=== PATIENT | female | born 1960 | race Caucasian/White ===

== ENCOUNTER → 2017-04-20 07:19 | Outpatient (CLI) | payer MEDICARE, SELFPAY ==
--- NOTE | 2017-04-20 10:06 | NEURO_ITS ---
NCS and/or EMG Patient Report Ordering Doctor: Tami Randall DATE OF SERVICE: 04/20/17 This is a bilateral lower extremity nerve conduction study performed on this 56- year-old female with a history of diabetes which is currently under good control however prior to 4 months ago she states that her hemoglobin A1c numbers were greater than 10 for many years. She experiences pain currently most severe on the bottom of her feet. Bilateral lower extremity sensory and motor nerve conduction studies are performed, demonstrating absence of the sural sensory responses bilaterally, absence of the H reflexes bilaterally, and absence of the left tibial and common peroneal F waves with prolongation of the right tibial and common peroneal F-wave latencies. The motor responses are abnormal from the bilateral common peroneal nerves and tibial motor nerves bilaterally all of which are consistent with a severe polyneuropathy. Impression this is an abnormal nerve conduction study of the bilateral lower extremities consistent with severe polyneuropathy, likely due to the patient's history of diabetes. EMG testing was deferred due to the patient's severe edema.
== END ==
PROVIDERS: Family Provider Family Medicine Geriatric Medicine; PCP Family Medicine Geriatric Medicine; Visit Provider Psychiatry & Neurology Neurology
DX: G62.9 Polyneuropathy, unspecified (principal); R20.0 Anesthesia of skin; R20.2 Paresthesia of skin
CPT/HCPCS: 95910

== ENCOUNTER → 2017-05-12 12:09 | Outpatient (CLI) | payer MEDICARE, SELFPAY ==
[2017-05-12 13:27] LABS: Absolute Lymphocyte Count 0.09 X10^3/ul (0.83-4.51); Absolute Neutrophil Count 3.8 X10^3/uL (2.0-7.7); Basophil# 0.01 X10^3/uL; Basophil% 0.2 % (0-1); Eosinophil# 0.16 X10^3/uL; Eosinophils% 3.6 % (0-5); Hematocrit 37.8 % (37-47); Hemoglobin 11.7 g/dl (12.0-15.0); Lymphocyte # 0.09 X10^3/ul (4.0); Mean Corpuscular Hgb 28.9 pg (27.0-32.0); Mean Corpuscular Volume 93.3 fL (81-99); Mean Platelet Vol. 10.6 fl (6.2-12.0); Monocyte# 0.46 X10^3/uL; Monocyte% 10.3 % (0-10); Neutrophil # 3.75 X10^3/uL (2.7-7.7); Neutrophil % 83.7 % (47-70); Platelet Count 279 K/mm3 (150-450); RBC Distribution Width CV 15.5 % (11.6-14.6); Red Blood Count 4.05 M/mm3 (4.2-5.4); White Blood Count 4.5 K/mm3 (4.4-11.0)
[2017-05-12 13:31] LABS: Differential Indicated SCAN CRITERIA MET; POSITIVE COUNT NO; POSITIVE DIFFERENTIAL YES; POSITIVE MORPHOLOGY NO
[2017-05-12 13:41] LABS: ALB/GLOB Ratio 0.8 RATIO (0.9-2.4); AST(SGOT) 13 U/L (15-37); Alanine Aminotransfer ALT/SGPT 13 U/L (13-56); Albumin, Serum 3.1 g/dL (3.2-5.0); Alkaline Phosphatase 83 U/L (45-117); Anion Gap 8 (5-15); BUN 26 mg/dL (7-18); BUN/Creat Ratio 28.1 RATIO (10-20); Calcium,Total 8.5 mg/dL (8.5-10.1); Chloride 100 mmol/L (98-107); Creatinine, Serum 0.92 mg/dL (0.55-1.02); EST Glomerular Filtration Rate 67 mL/min (>60); Est Glom Filt Rate - Afr Amer 81 mL/min (>60); Globulin 4.1 g/dL (2.2-4.2); Glucose 142 mg/dL (74-106); Protein, Total 7.2 g/dL (6.4-8.2); Sodium Level 138 mmol/L (136-145); Thyroid Stim Hormone (TSH) 3.85 uIU/mL (0.358-3.74)
== END ==
PROVIDERS: Family Provider Family Medicine Geriatric Medicine; PCP Family Medicine Geriatric Medicine; Visit Provider Family Medicine Geriatric Medicine
DX: E11.9 Type 2 diabetes mellitus without complications (principal); I10 Essential (primary) hypertension
CPT/HCPCS: 36415; 80053; 84443; 85025

== ENCOUNTER → 2017-06-30 11:26 | Outpatient (CLI) | payer MEDICARE, SELFPAY ==
[2017-06-30 12:33] LABS: Hemoglobin A1c 10.1 % (4.2-6.3)
[2017-06-30 12:43] LABS: Thyroid Stim Hormone (TSH) 1.37 uIU/mL (0.358-3.74)
== END ==
PROVIDERS: Family Provider Family Medicine Geriatric Medicine; PCP Family Medicine Geriatric Medicine; Visit Provider Family Medicine Geriatric Medicine
DX: E11.9 Type 2 diabetes mellitus without complications (principal); E03.9 Hypothyroidism, unspecified; Z79.899 Other long term (current) drug therapy
CPT/HCPCS: 36415; 83036; 84443

== ENCOUNTER → 2017-08-16 15:59 | Outpatient (CLI) | payer MEDICARE, SELFPAY ==
[2017-08-16 20:13] LABS: M R Staph aureus DNA By PCR Negative (Negative); Probe Check PASS; Specimen Processing Control PASS; Staph aureus DNA By PCR POSITIVE (Negative)
== END ==
PROVIDERS: Family Provider Family Medicine Geriatric Medicine; PCP Family Medicine Geriatric Medicine; Visit Provider Family Medicine Geriatric Medicine
DX: T79.8XXA Other early complications of trauma, initial encounter (principal)
CPT/HCPCS: 36415; 87070; 87077; 87186; 87205; 87640

== ENCOUNTER → 2017-11-11 11:59 | Outpatient (CLI) | payer MEDICARE, SELFPAY ==
[2017-11-11 12:49] LABS: Absolute Lymphocyte Count 0.29 X10^3/ul (0.83-4.51); Absolute Neutrophil Count 3.7 X10^3/uL (2.0-7.7); Basophil# 0.01 X10^3/uL; Basophil% 0.2 % (0-1); Eosinophils% 2.3 % (0-5); Hematocrit 39.9 % (37-47); Hemoglobin 12.2 g/dl (12.0-15.0); Lymphocyte # 0.29 X10^3/ul (4.0); Lymphocyte % 6.7 % (19-41); Mean Corp Hgb Conc 30.6 g/gl (32-36); Mean Corpuscular Hgb 28.7 pg (27.0-32.0); Mean Corpuscular Volume 93.9 fL (81-99); Mean Platelet Vol. 10.9 fl (6.2-12.0); Monocyte# 0.24 X10^3/uL; Monocyte% 5.6 % (0-10); Neutrophil # 3.66 X10^3/uL (2.7-7.7); Neutrophil % 84.7 % (47-70); Platelet Count 250 K/mm3 (150-450); RBC Distribution Width CV 16.5 % (11.6-14.6); Red Blood Count 4.25 M/mm3 (4.2-5.4); White Blood Count 4.3 K/mm3 (4.4-11.0)
[2017-11-11 12:52] LABS: Differential Indicated SCAN CRITERIA MET; POSITIVE COUNT NO; POSITIVE DIFFERENTIAL YES; POSITIVE MORPHOLOGY NO
[2017-11-11 13:17] LABS: ALB/GLOB Ratio 0.8 RATIO (0.9-2.4); AST(SGOT) 21 U/L (15-37); Alanine Aminotransfer ALT/SGPT 19 U/L (13-56); Albumin, Serum 3.2 g/dL (3.2-5.0); Alkaline Phosphatase 74 U/L (45-117); Anion Gap 11 (5-15); BUN 19 mg/dL (7-18); BUN/Creat Ratio 21.5 RATIO (10-20); Calcium,Total 8.6 mg/dL (8.5-10.1); Chloride 104 mmol/L (98-107); Creatinine, Serum 0.88 mg/dL (0.55-1.02); EST Glomerular Filtration Rate 71 mL/min (>60); Est Glom Filt Rate - Afr Amer 85 mL/min (>60); Glucose 176 mg/dL (74-106); Protein, Total 7.2 g/dL (6.4-8.2); Sodium Level 141 mmol/L (136-145); Thyroid Stim Hormone (TSH) 1.28 uIU/mL (0.358-3.74)
[2017-11-12 09:01] LABS: Hep C Antibodies 0.1 s/co ratio (0.0-0.9)
== END ==
PROVIDERS: Family Provider Family Medicine Geriatric Medicine; PCP Family Medicine Geriatric Medicine; Visit Provider Family Medicine Geriatric Medicine
DX: E11.9 Type 2 diabetes mellitus without complications (principal); I10 Essential (primary) hypertension; Z13.89 Encounter for screening for other disorder
CPT/HCPCS: 36415; 80053; 84443; 85025; 86803

== ENCOUNTER → 2017-11-12 09:25 | Outpatient (CLI) | payer MEDICARE, SELFPAY | PROVIDERS: Family Provider Family Medicine Geriatric Medicine; PCP Family Medicine Geriatric Medicine; Visit Provider Family Medicine Geriatric Medicine | DX: N39.0 Urinary tract infection, site not specified (principal) | CPT/HCPCS: 87086; 87088; 87186 ==

== ENCOUNTER → 2017-12-14 15:45 | Outpatient (CLI) | payer MEDICARE, SELFPAY | PROVIDERS: Family Provider Family Medicine Geriatric Medicine; PCP Family Medicine Geriatric Medicine; Visit Provider Family Medicine Geriatric Medicine | DX: N39.0 Urinary tract infection, site not specified (principal) | CPT/HCPCS: 87086; 87088 ==

== ENCOUNTER → 2017-12-27 10:08 | Outpatient (CLI) | payer MEDICARE, SELFPAY ==
--- NOTE | 2017-12-27 10:37 | MRI_ITS ---
STUDY: MRI THORACIC SPINE WITH AND WITHOUT CONTRAST REASON FOR EXAM: Female, 57 years old. MS -- recheck MS , no new symptoms. TECHNIQUE: 14 ml of Gadavist was administered intravenously for the contrast portion of the examination. # of Images: 221 COMPARISON: January 12, 2017 FINDINGS: Normal kyphosis of the thoracic spine. There is no substantial scoliosis. T1-2, T2-3, T3-4, T4-5, T5-6, T6-7, T7-8, T8-9, T9-10, T10-11, T11-12: There is diffuse disc space narrowing and endplate spondylosis. Again noted is a long segment increased cord signal at T9/T10, without evidence of enhancement or expansion of the cord. Findings are stable since the prior examination. The soft tissue structures are unremarkable. There is no enhancing abnormality. MRI/Spine Thoracic W/WO Contrast IMPRESSION: Stable examination. Stable T9/T10 nonenhancing plaque. Electronically Signed: Jose Ramon Mcconnell MD at 13:10 EDT Tel , Service support ,
--- NOTE | 2017-12-27 10:37 | MRI_ITS ---
STUDY: MRI CERVICAL SPINE WITH AND WITHOUT CONTRAST REASON FOR EXAM: Female, 57 years old. recheck MS , no new symptoms. TECHNIQUE: Standardized fat and water weighted pulse sequences were obtained in the sagittal and axial following I.V. administration of 14 ml of Gadavist contrast material. COMPARISON: January 12, 2017 FINDINGS: Examination is severely degraded by motion artifact Normal craniovertebral junction. Normal anterior atlantoaxial articulation. Normal odontoid process. Normal cervical lordosis. C2-3: There is no significant disc herniation, spinal canal or foramina stenosis. The area of previous demyelinating plaque is not well-visualized on this motion degraded examination. C3-4: There is no significant disc herniation, spinal canal or foramina stenosis. There is stable increased cord signal without enhancement C4-5: There is minimal disc space narrowing and endplate spondylosis. There is no significant disc herniation, central canal or foraminal stenosis. There is stable increased cord signal without enhancement C5-6: There is no significant disc herniation, spinal canal or foramina stenosis. C6-7: There is minimal disc space narrowing and endplate spondylosis. There is no significant disc herniation, central canal or foraminal stenosis. C7-T1: There is mild disc space narrowing and endplate spondylosis. There is no significant disc herniation, central canal or foraminal stenosis. Normal visualized soft tissue structures. MRI/Spine Cervical W/WO Contrast IMPRESSION: Stable examination. Stable demyelinating plaque without evidence of active demyelination. Electronically Signed: Jose Ramon Mcconnell MD at 13:07 EDT Tel , Service support ,
--- NOTE | 2017-12-27 10:37 | MRI_ITS ---
STUDY: MRI BRAIN WITH AND WITHOUT CONTRAST REASON FOR EXAM: Female, 57 years old. MS -- recheck MS , no new symptoms. TECHNIQUE: Standardized multiplanar fat and water weighted pulse sequences were obtained. 14 ml of Gadavist contrast material was administered intravenously for the contrast portion of the examination. # of Images: 350 COMPARISON: January 12, 2017 FINDINGS: There is mild cerebral atrophy with widening of the extra-axial spaces and ventricular dilatation. There are a limited number of small white matter hyperintensities, distributed throughout the deep white matter tracts of the cerebral hemispheres, without enhancement or restricted diffusion to suggest active demyelination. Normal bilateral basal ganglia. Normal thalami. There is no extra-axial fluid accumulation. Normal flow voids within the major intracranial circulation suggesting patency by spin echo criteria. Normal venous enhancement. There is no enhancing intra-axial or extra-axial abnormality. Normal sella turcica, pituitary gland, infundibular stalk, optic chiasm and hypothalamus. Normal tectal plate and pineal gland. Normal midbrain, yina and medulla. Normal cerebellum. Normal basal cisterns. Normal bilateral temporal bones. Normal bilateral internal auditory canals. MRI/Brain W/WO Contrast IMPRESSION: Stable examination. Stable few demyelinating plaque without evidence of active demyelination. Electronically Signed: Jose Ramon Mcconnell MD at 13:07 EDT Tel , Service support ,
[2017-12-27 14:59] LABS: Vitamin D,25 Hydroxy 8.7 ng/mL (29.95-100.01)
== END ==
PROVIDERS: Family Provider Family Medicine Geriatric Medicine; PCP Family Medicine Geriatric Medicine; Referring Provider Psychiatry & Neurology Neurology; Visit Provider Psychiatry & Neurology Neurology
DX: G35 Multiple sclerosis (principal)
CPT/HCPCS: 36415; 70553; 72156; 72157; 82306; A9585

== ENCOUNTER → 2018-05-12 10:39 | Outpatient (CLI) | payer MEDICARE, SELFPAY ==
--- NOTE | 2018-05-12 11:37 | RAD_ITS ---
STUDY: X-RAY - ABDOMEN/PELVIS REASON FOR EXAM: Female, 57 years old. Abdominal pain and distention TECHNIQUE: 6 AP studies COMPARISON: None. FINDINGS: Normal visualized lung bases. Retained stool noted throughout the colon which may be impacted. There is small bowel ileus proximal to the retained stool in the colon. There is no demonstrated free abdominal air. The visualized liver, spleen and kidneys are grossly normal in size and morphology. Normal soft tissue structures. Normal visualized osseous structures. IUD noted in the uterus RAD/Abd Inc Decub and/or Erect IMPRESSION: Retained stool noted in the colon which may be impacted Small bowel ileus Electronically Signed: Pierce Benedict MD at 15:40 EDT , Service support ,
[2018-05-12 13:06] LABS: Absolute Lymphocyte Count 0.19 X10^3/ul (0.83-4.51); Absolute Neutrophil Count 3.3 X10^3/uL (2.0-7.7); Basophil# 0.01 X10^3/uL; Basophil% 0.2 % (0-1); Eosinophils% 4.8 % (0-5); Hematocrit 37.7 % (37-47); Hemoglobin 11.9 g/dl (12.0-15.0); Lymphocyte # 0.19 X10^3/ul (4.0); Lymphocyte % 4.6 % (19-41); Mean Corp Hgb Conc 31.6 g/gl (32-36); Mean Corpuscular Hgb 29.5 pg (27.0-32.0); Mean Corpuscular Volume 93.5 fL (81-99); Mean Platelet Vol. 10.6 fl (6.2-12.0); Monocyte# 0.46 X10^3/uL; Monocyte% 11.1 % (0-10); Neutrophil # 3.27 X10^3/uL (2.7-7.7); Neutrophil % 78.8 % (47-70); Platelet Count 321 K/mm3 (150-450); RBC Distribution Width CV 14.9 % (11.6-14.6); RBC Distribution Width SD 49.6 fl (35.1-43.9); Red Blood Count 4.03 M/mm3 (4.2-5.4); White Blood Count 4.2 K/mm3 (4.4-11.0)
[2018-05-12 13:11] LABS: Differential Indicated SCAN CRITERIA MET; POSITIVE COUNT NO; POSITIVE DIFFERENTIAL YES; POSITIVE MORPHOLOGY NO
[2018-05-12 13:32] LABS: ALB/GLOB Ratio 0.9 RATIO (0.9-2.4); AST(SGOT) 12 U/L (15-37); Alanine Aminotransfer ALT/SGPT 15 U/L (13-56); Albumin, Serum 3.4 g/dL (3.2-5.0); Alkaline Phosphatase 91 U/L (45-117); Anion Gap 7 (5-15); BUN 24 mg/dL (7-18); BUN/Creat Ratio 27.3 RATIO (10-20); Calcium,Total 8.7 mg/dL (8.5-10.1); Chloride 104 mmol/L (98-107); Creatinine, Serum 0.88 mg/dL (0.55-1.02); EST Glomerular Filtration Rate 71 mL/min (>60); Est Glom Filt Rate - Afr Amer 86 mL/min (>60); Globulin 3.6 g/dL (2.2-4.2); Glucose 138 mg/dL (74-106); Potassium 3.9 mmol/L (3.5-5.1); Sodium Level 140 mmol/L (136-145); Thyroid Stim Hormone (TSH) 3.67 uIU/mL (0.358-3.74)
[2018-05-16 09:07] LABS: Pathologist Review Reviewed
== END ==
LOC: POLAB3 10:41 → RAD 11:31
PROVIDERS: Family Provider Family Medicine Geriatric Medicine; PCP Family Medicine Geriatric Medicine; Referring Provider Family Medicine Geriatric Medicine; Visit Provider Family Medicine Geriatric Medicine
DX: E11.9 Type 2 diabetes mellitus without complications (principal); I10 Essential (primary) hypertension; K56.41 Fecal impaction
CPT/HCPCS: 36415; 74019; 80053; 84443; 85025

== ENCOUNTER → 2018-07-14 12:19 | Outpatient (CLI) | payer MEDICARE, SELFPAY ==
--- NOTE | 2018-07-14 12:42 | RAD_ITS ---
STUDY: X-RAY - LEFT FOOT CLINICAL: Female, 58 years old. Pain TECHNIQUE: 3 view(s) of the foot. COMPARISON: None. FINDINGS: Normal talus, calcaneus, and tarsal bones. Normal visualized subtalar, talonavicular, calcaneocuboid, tarsal and tarsometatarsal articulations. Normal metatarsi. Normal metatarsophalangeal joint of the great toe. Normal tibial and fibular sesamoid bones. Normal interphalangeal joint of the great toe. Normal phalanges of the great toe. Normal second through fifth metatarsophalangeal joints. Normal interphalangeal joints and phalanges of the lesser toes. Soft tissue swelling. RAD/Foot min 3 Views IMPRESSION: No fractures or osteolytic lesions are seen. Electronically Signed: Mendoza Echeverria MD at 21:52 EDT Tel , Service support ,
--- NOTE | 2018-07-14 12:42 | RAD_ITS ---
STUDY: X-RAY - RIGHT FOOT CLINICAL: Female, 58 years old. Pain TECHNIQUE: 3 view(s) of the foot. COMPARISON: None. FINDINGS: Normal talus, calcaneus, and tarsal bones. Normal visualized subtalar, talonavicular, calcaneocuboid, tarsal and tarsometatarsal articulations. Normal metatarsi. Normal metatarsophalangeal joint of the great toe. Normal tibial and fibular sesamoid bones. Normal interphalangeal joint of the great toe. Normal phalanges of the great toe. Normal second through fifth metatarsophalangeal joints. Normal interphalangeal joints and phalanges of the lesser toes. Soft tissue swelling. RAD/Foot min 3 Views IMPRESSION: No fracture or osteolytic lesion. Electronically Signed: Mendoza Echeverria MD at 21:57 EDT Tel , Service support ,
[2018-07-14 17:18] LABS: Anion Gap 6 (5-15); BUN 24 mg/dL (7-18); BUN/Creat Ratio 29.8 RATIO (10-20); Calcium,Total 8.9 mg/dL (8.5-10.1); Chloride 105 mmol/L (98-107); Creatinine, Serum 0.81 mg/dL (0.55-1.02); EST Glomerular Filtration Rate 78 mL/min (>60); Est Glom Filt Rate - Afr Amer 95 mL/min (>60); Follicle Stimulating Hormone 26.6 mIU/mL; Glucose 197 mg/dL (74-106); Potassium 3.8 mmol/L (3.5-5.1); Sodium Level 140 mmol/L (136-145)
[2018-07-20 12:12] LABS: Estrogen, Total, Serum 68 pg/mL (.)
== END ==
LOC: POLAB3 12:19 → RAD 12:34
PROVIDERS: Family Provider Family Medicine Geriatric Medicine; PCP Family Medicine Geriatric Medicine; Referring Provider Family Medicine Geriatric Medicine; Visit Provider Family Medicine Geriatric Medicine
DX: M79.672 Pain in left foot (principal); M79.671 Pain in right foot; E28.2 Polycystic ovarian syndrome
CPT/HCPCS: 36415; 73630; 80048; 82672; 83001; 84403

== ENCOUNTER → 2018-08-10 08:56 | Outpatient (CLI) | payer MEDICARE, SELFPAY ==
[2018-08-10 12:25] LABS: Absolute Lymphocyte Count 0.15 X10^3/ul (0.83-4.51); Basophil# 0.01 X10^3/uL; Basophil% 0.2 % (0-1); Eosinophils% 4.1 % (0-5); Hematocrit 36.8 % (37-47); Hemoglobin 11.6 g/dl (12.0-15.0); Lymphocyte # 0.15 X10^3/ul (4.0); Lymphocyte % 3.1 % (19-41); Mean Corp Hgb Conc 31.5 g/gl (32-36); Mean Platelet Vol. 10.8 fl (6.2-12.0); Monocyte# 0.42 X10^3/uL; Monocyte% 8.7 % (0-10); Neutrophil # 4.02 X10^3/uL (2.7-7.7); Neutrophil % 83.5 % (47-70); Platelet Count 299 K/mm3 (150-450); RBC Distribution Width CV 14.9 % (11.6-14.6); RBC Distribution Width SD 48.7 fl (35.1-43.9); White Blood Count 4.8 K/mm3 (4.4-11.0)
[2018-08-10 12:26] LABS: Differential Indicated SCAN CRITERIA MET; POSITIVE COUNT NO; POSITIVE DIFFERENTIAL YES; POSITIVE MORPHOLOGY NO
[2018-08-10 12:39] LABS: ALB/GLOB Ratio 0.8 RATIO (0.9-2.4); AST(SGOT) 12 U/L (15-37); Alanine Aminotransfer ALT/SGPT 19 U/L (13-56); Alkaline Phosphatase 103 U/L (45-117); Anion Gap 9 (5-15); BUN 17 mg/dL (7-18); BUN/Creat Ratio 19.2 RATIO (10-20); Calcium,Total 8.6 mg/dL (8.5-10.1); Chloride 104 mmol/L (98-107); Creatinine, Serum 0.88 mg/dL (0.55-1.02); EST Glomerular Filtration Rate 70 mL/min (>60); Est Glom Filt Rate - Afr Amer 85 mL/min (>60); Glucose 126 mg/dL (74-106); Potassium 4.1 mmol/L (3.5-5.1); Sodium Level 141 mmol/L (136-145); Thyroid Stim Hormone (TSH) 1.95 uIU/mL (0.358-3.74)
== END ==
PROVIDERS: Family Provider Family Medicine Geriatric Medicine; PCP Family Medicine Geriatric Medicine; Visit Provider Family Medicine Geriatric Medicine
DX: E11.9 Type 2 diabetes mellitus without complications (principal); I10 Essential (primary) hypertension
CPT/HCPCS: 36415; 80053; 84443; 85025

== ENCOUNTER → 2018-09-13 11:39 | Outpatient (CLI) | payer MEDICARE, SELFPAY ==
[2018-09-13 12:50] LABS: Absolute Lymphocyte Count 0.12 X10^3/uL (0.83-4.51); Absolute Neutrophil Count 3.9 X10^3/uL (2.0-7.7); Basophil# 0.02 X10^3/uL; Basophil% 0.4 % (0-1); Eosinophil# 0.21 X10^3/uL; Eosinophils% 4.6 % (0-5); Hematocrit 37.3 % (37-47); Hemoglobin 11.5 g/dL (12.0-15.0); Lymphocyte # 0.12 X10^3/ul (4.0); Lymphocyte % 2.6 % (19-41); Mean Corp Hgb Conc 30.8 g/dL (32-36); Mean Platelet Vol. 10.6 fl (6.2-12.0); Monocyte# 0.37 X10^3/uL; NRBC Flagged by Analyzer 0 % (0-5); Neutrophil # 3.85 X10^3/uL (2.7-7.7); Neutrophil % 83.5 % (47-70); POSITIVE DIFFERENTIAL YES; Platelet Count 273 K/mm3 (150-450); RBC Distribution Width CV 14.2 % (11.6-14.6); RBC Distribution Width SD 48.9 fl (35.1-43.9); Red Blood Count 3.97 M/mm3 (4.2-5.4); White Blood Count 4.6 K/mm3 (4.4-11.0)
[2018-09-13 13:00] LABS: Differential Indicated SCAN CRITERIA MET
[2018-09-13 13:01] LABS: ALB/GLOB Ratio 0.9 RATIO (0.9-2.4); AST(SGOT) 16 U/L (15-37); Alanine Aminotransfer ALT/SGPT 19 U/L (13-56); Albumin, Serum 3.2 g/dL (3.2-5.0); Alkaline Phosphatase 109 U/L (45-117); Anion Gap 6 (5-15); BUN 21 mg/dL (7-18); BUN/Creat Ratio 23.4 RATIO (10-20); Chloride 103 mmol/L (98-107); EST Glomerular Filtration Rate 69 mL/min (>60); Est Glom Filt Rate - Afr Amer 83 mL/min (>60); Globulin 3.7 g/dL (2.2-4.2); Glucose 182 mg/dL (74-106); Potassium 4.1 mmol/L (3.5-5.1); Protein, Total 6.9 g/dL (6.4-8.2); Sodium Level 139 mmol/L (136-145)
== END ==
PROVIDERS: Family Provider Family Medicine Geriatric Medicine; PCP Family Medicine Geriatric Medicine; Visit Provider Psychiatry & Neurology Neurology
DX: G35 Multiple sclerosis (principal); C92.40 Acute promyelocytic leukemia, not having achieved remission
CPT/HCPCS: 36415; 80053; 85025

== ENCOUNTER → 2018-11-29 09:33 | Outpatient (CLI) | payer MEDICARE, SELFPAY ==
[2018-11-29 12:44] LABS: Absolute Lymphocyte Count 0.11 X10^3/uL (0.83-4.51); Absolute Neutrophil Count 2.9 X10^3/uL (2.0-7.7); Basophil# 0.03 X10^3/uL; Basophil% 0.8 % (0-1); Eosinophil# 0.22 X10^3/uL; Eosinophils% 5.9 % (0-5); Hematocrit 38.9 % (37-47); Hemoglobin 12.1 g/dL (12.0-15.0); Lymphocyte # 0.11 X10^3/ul (4.0); Lymphocyte % 2.9 % (19-41); Mean Corp Hgb Conc 31.1 g/dL (32-36); Mean Corpuscular Hgb 28.5 pg (27.0-32.0); Mean Corpuscular Volume 91.5 fL (81-99); Mean Platelet Vol. 11.1 fl (6.2-12.0); Monocyte# 0.48 X10^3/uL; Monocyte% 12.8 % (0-10); NRBC Flagged by Analyzer 0 % (0-5); Neutrophil # 2.89 X10^3/uL (2.7-7.7); Neutrophil % 76.8 % (47-70); POSITIVE DIFFERENTIAL YES; Platelet Count 270 K/mm3 (150-450); RBC Distribution Width CV 14.7 % (11.6-14.6); Red Blood Count 4.25 M/mm3 (4.2-5.4); White Blood Count 3.8 K/mm3 (4.4-11.0)
[2018-11-29 12:52] LABS: Differential Indicated SCAN CRITERIA MET
[2018-11-29 13:00] LABS: Vitamin D,25 Hydroxy 12.6 ng/mL (29.95-100.01)
[2018-11-29 13:03] LABS: Platelet Estimate ADEQUATE (ADEQ); Red Cell Morphology NORM C+C NORMAL (NORM C&C)
[2018-11-29 13:23] LABS: ALB/GLOB Ratio 0.9 RATIO (0.9-2.4); AST(SGOT) 17 U/L (15-37); Alanine Aminotransfer ALT/SGPT 23 U/L (13-56); Albumin, Serum 3.5 g/dL (3.2-5.0); Alkaline Phosphatase 112 U/L (45-117); Anion Gap 8 (5-15); BUN 19 mg/dL (7-18); BUN/Creat Ratio 17.6 RATIO (10-20); Calcium,Total 8.9 mg/dL (8.5-10.1); Chloride 101 mmol/L (98-107); Creatinine, Serum 1.08 mg/dL (0.55-1.02); EST Glomerular Filtration Rate 56 mL/min (>60); Est Glom Filt Rate - Afr Amer 67 mL/min (>60); Globulin 3.9 g/dL (2.2-4.2); Glucose 128 mg/dL (74-106); Potassium 3.8 mmol/L (3.5-5.1); Protein, Total 7.4 g/dL (6.4-8.2); Sodium Level 138 mmol/L (136-145); Thyroid Stim Hormone (TSH) 2.99 uIU/mL (0.358-3.74)
[2018-11-30 10:16] LABS: Pathologist Review Reviewed
== END ==
PROVIDERS: Family Provider Family Medicine Geriatric Medicine; PCP Family Medicine Geriatric Medicine; Visit Provider Family Medicine Geriatric Medicine
DX: E11.9 Type 2 diabetes mellitus without complications (principal); E55.9 Vitamin D deficiency, unspecified; I10 Essential (primary) hypertension
CPT/HCPCS: 36415; 80053; 82306; 84443; 85025

== ENCOUNTER → 2019-03-09 14:16 | Outpatient (CLI) | payer MEDICARE, SELFPAY ==
[2019-03-09 16:38] LABS: Absolute Lymphocyte Count 0.18 X10^3/uL (0.83-4.51); Absolute Neutrophil Count 3.9 X10^3/uL (2.0-7.7); Basophil# 0.02 X10^3/uL; Basophil% 0.4 % (0-1); Eosinophil# 0.11 X10^3/uL; Eosinophils% 2.4 % (0-5); Hematocrit 37.2 % (37-47); Hemoglobin 11.7 g/dL (12.0-15.0); Lymphocyte # 0.18 X10^3/ul (4.0); Lymphocyte % 3.9 % (19-41); Mean Corp Hgb Conc 31.5 g/dL (32-36); Mean Corpuscular Hgb 29.1 pg (27.0-32.0); Mean Corpuscular Volume 92.5 fL (81-99); Mean Platelet Vol. 10.6 fl (6.2-12.0); Monocyte# 0.44 X10^3/uL; Monocyte% 9.5 % (0-10); NRBC Flagged by Analyzer 0 % (0-5); Neutrophil # 3.87 X10^3/uL (2.7-7.7); Neutrophil % 83.4 % (47-70); POSITIVE DIFFERENTIAL YES; Platelet Count 233 K/mm3 (150-450); RBC Distribution Width CV 14.1 % (11.6-14.6); RBC Distribution Width SD 47.8 fl (35.1-43.9); Red Blood Count 4.02 M/mm3 (4.2-5.4); White Blood Count 4.6 K/mm3 (4.4-11.0)
[2019-03-09 16:46] LABS: Differential Indicated SCAN CRITERIA MET
[2019-03-09 17:11] LABS: ALB/GLOB Ratio 0.8 RATIO (0.9-2.4); AST(SGOT) 16 U/L (15-37); Alanine Aminotransfer ALT/SGPT 27 U/L (13-56); Albumin, Serum 3.2 g/dL (3.2-5.0); Alkaline Phosphatase 100 U/L (45-117); Anion Gap 6 (5-15); BUN 22 mg/dL (7-18); BUN/Creat Ratio 23.7 RATIO (10-20); Calcium,Total 9.2 mg/dL (8.5-10.1); Chloride 103 mmol/L (98-107); Creatinine, Serum 0.93 mg/dL (0.55-1.02); EST Glomerular Filtration Rate 66 mL/min (>60); Est Glom Filt Rate - Afr Amer 80 mL/min (>60); Glucose 119 mg/dL (74-106); Potassium 4.2 mmol/L (3.5-5.1); Protein, Total 7.2 g/dL (6.4-8.2); Sodium Level 138 mmol/L (136-145); Thyroid Stim Hormone (TSH) 0.64 uIU/mL (0.358-3.74)
[2019-03-09 17:25] LABS: Anisocytosis RARE; Macrocytosis RARE; Platelet Estimate ADEQUATE (ADEQ); Red Cell Morphology N CHROM NORMAL (NORM C&C)
== END ==
PROVIDERS: Family Provider Family Medicine Geriatric Medicine; PCP Family Medicine Geriatric Medicine; Visit Provider Family Medicine Geriatric Medicine
DX: I10 Essential (primary) hypertension (principal); E11.9 Type 2 diabetes mellitus without complications
CPT/HCPCS: 36415; 80053; 84443; 85025

== ENCOUNTER → 2019-07-21 09:54 | Outpatient (CLI) | payer MEDICARE, SELFPAY ==
[2019-07-21 12:31] LABS: Absolute Lymphocyte Count 0.13 X10^3/uL (0.83-4.51); Absolute Neutrophil Count 4.5 X10^3/uL (2.0-7.7); Basophil# 0.02 X10^3/uL; Basophil% 0.4 % (0-1); Eosinophil# 0.16 X10^3/uL; Hemoglobin 12.1 g/dL (12.0-15.0); Lymphocyte # 0.13 X10^3/ul (4.0); Lymphocyte % 2.5 % (19-41); Mean Corpuscular Hgb 28.6 pg (27.0-32.0); Mean Corpuscular Volume 92.2 fL (81-99); Mean Platelet Vol. 10.3 fl (6.2-12.0); Monocyte# 0.44 X10^3/uL; Monocyte% 8.3 % (0-10); NRBC Flagged by Analyzer 0 % (0-5); Neutrophil % 85.4 % (47-70); POSITIVE DIFFERENTIAL YES; Platelet Count 348 K/mm3 (150-450); RBC Distribution Width CV 14.4 % (11.6-14.6); RBC Distribution Width SD 48.6 fl (35.1-43.9); Red Blood Count 4.23 M/mm3 (4.2-5.4); White Blood Count 5.3 K/mm3 (4.4-11.0)
[2019-07-21 12:40] LABS: Differential Indicated SCAN CRITERIA MET
[2019-07-21 12:52] LABS: ALB/GLOB Ratio 0.6 RATIO (0.9-2.4); AST(SGOT) 16 U/L (15-37); Alanine Aminotransfer ALT/SGPT 16 U/L (13-56); Albumin, Serum 2.9 g/dL (3.2-5.0); Alkaline Phosphatase 133 U/L (45-117); Anion Gap 5 (5-15); BUN 18 mg/dL (7-18); BUN/Creat Ratio 21.3 RATIO (10-20); Calcium,Total 8.7 mg/dL (8.5-10.1); Chloride 106 mmol/L (98-107); Cholesterol 210 mg/dL (200); Creatinine, Serum 0.85 mg/dL (0.55-1.02); EST Glomerular Filtration Rate 74 mL/min (>60); Est Glom Filt Rate - Afr Amer 89 mL/min (>60); Globulin 4.5 g/dL (2.2-4.2); Glucose 75 mg/dL (74-106); High Density Lipoprotein 38 mg/dL; Potassium 3.6 mmol/L (3.5-5.1); Protein, Total 7.4 g/dL (6.4-8.2); Sodium Level 140 mmol/L (136-145); Triglycerides 259 mg/dL; Very Low Density Lipoprotein 52 mg/dL (5-40)
[2019-07-21 12:58] LABS: Differential Comment SCANNED
[2019-07-21 13:12] LABS: Hemoglobin A1c 5.8 % (3.8-5.6)
== END ==
PROVIDERS: PCP Family Medicine Geriatric Medicine; Visit Provider Family Medicine Geriatric Medicine
DX: E11.9 Type 2 diabetes mellitus without complications (principal); E78.5 Hyperlipidemia, unspecified; I10 Essential (primary) hypertension
CPT/HCPCS: 36415; 80053; 80061; 83036; 84443; 85025

== ENCOUNTER → 2019-09-13 16:06 | Outpatient (CLI) | payer MEDICARE, MEDICAID, SELFPAY ==
[2019-09-13 16:35] LABS: Absolute Lymphocyte Count 0.14 X10^3/uL (0.83-4.51); Absolute Neutrophil Count 3.7 X10^3/uL (2.0-7.7); Basophil# 0.03 X10^3/uL; Basophil% 0.6 % (0-1); Eosinophil# 0.27 X10^3/uL; Eosinophils% 5.8 % (0-5); Hematocrit 37.2 % (37-47); Hemoglobin 11.7 g/dL (12.0-15.0); Lymphocyte # 0.14 X10^3/ul (4.0); Mean Corp Hgb Conc 31.5 g/dL (32-36); Mean Corpuscular Hgb 29.1 pg (27.0-32.0); Mean Corpuscular Volume 92.5 fL (81-99); Monocyte# 0.46 X10^3/uL; Monocyte% 9.9 % (0-10); NRBC Flagged by Analyzer 0 % (0-5); Neutrophil # 3.74 X10^3/uL (2.7-7.7); Neutrophil % 80.5 % (47-70); POSITIVE DIFFERENTIAL YES; Platelet Count 322 K/mm3 (150-450); RBC Distribution Width CV 15.1 % (11.6-14.6); RBC Distribution Width SD 51.1 fl (35.1-43.9); Red Blood Count 4.02 M/mm3 (4.2-5.4); White Blood Count 4.7 K/mm3 (4.4-11.0)
[2019-09-13 16:43] LABS: Vitamin D,25 Hydroxy 13.6 ng/mL
[2019-09-13 16:47] LABS: Differential Indicated SCAN CRITERIA MET
[2019-09-13 16:51] LABS: ALB/GLOB Ratio 0.7 RATIO (0.9-2.4); AST(SGOT) 11 U/L (15-37); Alanine Aminotransfer ALT/SGPT 13 U/L (13-56); Albumin, Serum 3.1 g/dL (3.2-5.0); Alkaline Phosphatase 124 U/L (45-117); Anion Gap 5 (5-15); BUN 19 mg/dL (7-18); BUN/Creat Ratio 22.3 RATIO (10-20); Calcium,Total 8.8 mg/dL (8.5-10.1); Chloride 103 mmol/L (98-107); Creatinine, Serum 0.85 mg/dL (0.55-1.02); EST Glomerular Filtration Rate 73 mL/min (>60); Est Glom Filt Rate - Afr Amer 88 mL/min (>60); Globulin 4.3 g/dL (2.2-4.2); Glucose 65 mg/dL (74-106); Protein, Total 7.4 g/dL (6.4-8.2); Sodium Level 139 mmol/L (136-145); Thyroid Stim Hormone (TSH) 2.12 uIU/mL (0.358-3.74)
[2019-09-13 17:40] LABS: Anisocytosis 1+; Platelet Estimate ADEQUATE (ADEQ); Red Cell Morphology N CHROM NORMAL (NORM C&C)
[2019-09-13 18:05] LABS: M R Staph aureus DNA By PCR Negative (Negative); Probe Check PASS; Specimen Processing Control PASS; Staph aureus DNA By PCR POSITIVE (Negative)
== END ==
PROVIDERS: PCP Family Medicine Geriatric Medicine; Visit Provider Family Medicine Geriatric Medicine
DX: E11.9 Type 2 diabetes mellitus without complications (principal); E55.9 Vitamin D deficiency, unspecified; I10 Essential (primary) hypertension; B95.62 Methicillin resistant Staphylococcus aureus infection as the cause of diseases classified elsewhere
CPT/HCPCS: 36415; 80053; 82306; 84443; 85025; 87070; 87077; 87186; 87205; 87640

== ENCOUNTER 2019-12-28 14:54 | Emergency (ER) | payer MEDICARE, MEDICAID, SELFPAY ==
[2019-12-28 14:55] VITALS: BP 136/87; PULSE 85; RESP 17; TEMP 35.9; O2SAT 98; BMI 69.9
--- NOTE | 2019-12-28 15:16 | ED.VISSUMM ---
- ER Visit Summary Date of Service: 12/28/19 Chief Complaint: Urinary retention and increased edema History of Present Illness: The patient is a 59 F who presents with decreased urinary output and increasing edema over lower extremities. Patient states she chronically has some swelling in her lower extremities but this is worse over the last 2 weeks. Patient states it gets better when she elevates. Patient states she only urinates twice daily. Patient states she is taking a water pill which is not helping. Patient denies any shortness of breath. Patient denies any nausea or vomiting. Patient denies any fevers or chills. Patient denies any dysuria or hematuria. Physical Examination: Vital signs are stable. Patient is afebrile. Patient is in no acute distress. Oral mucosa is pink and moist. Neck is supple. Trachea is midline. There is no JVD. Heart was regular rate and rhythm. Lungs were diminished in the bases bilaterally. There is adequate respiratory effort. Abdomen is soft. Bowel sounds are normal. There is no tenderness. Cranial nerves II through XII are intact. There are no focal motor or sensory deficits noted. Extremities are intact. There is 2+ edema of the lower extremities bilaterally. There is no calf tenderness noted. Test Results: CBC and comprehensive metabolic profile were obtained and were essentially within normal limits. Urinalysis does not show any evidence of urinary tract infection. Emergency Department Course and Treatment: Valenzuela catheter was placed. 1200 cc of urine was drained. Case was discussed with Dr. Batista. She will follow up with the patient as an outpatient. Patient understood and was agreeable with the plan. All questions were answered. Disposition: Discharge home Impression: Urinary retention This note was generated with [employer] dictation software. It may contain incorrect words, spelling, and punctuation that were not noted in review of the chart prior to signing ED Disposition - Plan for ED Patient: Disposition: Home or Assisted Living Diagnosis: Urinary retention Instructions: ED Retention Urinary Female Referrals: Aimee Batista MD [STAFF PHYSICIAN] - 3-5 Days
[2019-12-28 15:51] LABS: Bacteria 0 SEEN /hpf (None Seen); Mucous, Urine 0 SEEN /hpf (<or=2+); Red Blood Cells-Urine 0 SEEN /hpf (0-5)
[2019-12-28 16:02] LABS: Color, Urine Yellow (Yellow); Glucose, Dipstick Normal (Normal); Ketone-Dipstick 5 mg/dl (Negative); Leukocyte Esterase-Dipstick 25 /ul (Negative); Nitrite-Dipstick Negative (Negative); Occult Blood-Urine Negative /ul (Negative); Protein-Dipstick 15 mg/dl (Negative); Specific Gravity, Urine 1.015 (1.002-1.030); Urine Bilirubin Dipstick Negative (Negative); Urine Clarity Sl. Cloudy (Clear); Urine Urobilinogen 1 mg/dl (Normal); Urine pH 6.5 (5.0 - 8.0)
[2019-12-28 16:16] LABS: White Blood Cells 0-5 SEEN /hpf (0-5)
[2019-12-28 16:17] LABS: Squamous Epithelial Cells - UA 0-5 SEEN /hpf (5-10)
[2019-12-28 16:22] LABS: Absolute Lymphocyte Count 0.18 X10^3/uL (0.83-4.51); Absolute Neutrophil Count 4.8 X10^3/uL (2.0-7.7); Basophil# 0.02 X10^3/uL; Basophil% 0.4 % (0-1); Eosinophil# 0.11 X10^3/uL; Hematocrit 38.2 % (37-47); Hemoglobin 11.7 g/dL (12.0-15.0); Lymphocyte # 0.18 X10^3/ul (4.0); Lymphocyte % 3.2 % (19-41); Mean Corp Hgb Conc 30.6 g/dL (32-36); Mean Corpuscular Hgb 28.6 pg (27.0-32.0); Mean Corpuscular Volume 93.4 fL (81-99); Mean Platelet Vol. 9.7 fl (6.2-12.0); Monocyte# 0.47 X10^3/uL; Monocyte% 8.4 % (0-10); NRBC Flagged by Analyzer 0 % (0-5); Neutrophil # 4.75 X10^3/uL (2.7-7.7); Neutrophil % 85.3 % (47-70); POSITIVE DIFFERENTIAL YES; Platelet Count 401 K/mm3 (150-450); RBC Distribution Width CV 15.9 % (11.6-14.6); RBC Distribution Width SD 54.5 fl (35.1-43.9); Red Blood Count 4.09 M/mm3 (4.2-5.4); White Blood Count 5.6 K/mm3 (4.4-11.0)
[2019-12-28 16:26] LABS: ALB/GLOB Ratio 0.7 RATIO (0.9-2.4); AST(SGOT) 16 U/L (15-37); Alanine Aminotransfer ALT/SGPT 12 U/L (13-56); Albumin, Serum 3.3 g/dL (3.2-5.0); Alkaline Phosphatase 140 U/L (45-117); Anion Gap 7 (5-15); BUN 15 mg/dL (7-18); BUN/Creat Ratio 13.9 RATIO (10-20); Calcium,Total 9.4 mg/dL (8.5-10.1); Chloride 104 mmol/L (98-107); Creatinine, Serum 1.08 mg/dL (0.55-1.02); EST Glomerular Filtration Rate 56 mL/min (>60); Est Glom Filt Rate - Afr Amer 67 mL/min (>60); Estimated Creatinine Clearance 137.86 ml/min; Globulin 4.5 g/dL (2.2-4.2); Glucose 86 mg/dL (74-106); Potassium 3.6 mmol/L (3.5-5.1); Protein, Total 7.8 g/dL (6.4-8.2); Sodium Level 138 mmol/L (136-145)
[2019-12-28 16:36] LABS: Differential Indicated SCAN CRITERIA MET
[2019-12-28 17:08] VITALS: BP 123/51; PULSE 85; RESP 18; TEMP 36.2; O2SAT 98
== END 2019-12-28 18:04 | disposition home or self-care (01) ==
PROVIDERS: Emergency Provider Emergency Medicine; PCP Family Medicine Geriatric Medicine
DX: R33.9 Retention of urine, unspecified (principal)
CPT/HCPCS: 51702; 80053; 81001; 85025; 99285; J7050; A4216

== ENCOUNTER → 2020-01-11 12:49 | Outpatient (CLI) | payer MEDICARE, MEDICAID, SELFPAY ==
[2019-12-28 14:55] VITALS: BMI 69.9
--- NOTE | 2020-01-11 12:50 | MRI_ITS ---
STUDY: MRI BRAIN WITH AND WITHOUT CONTRAST REASON FOR EXAM: Female, 59 years old. ms F/U NO NEW COMPALAINTS TECHNIQUE: Standardized multiplanar fat and water weighted pulse sequences were obtained. IV 30 cc dotarem was administered for the contrast portion of the examination. COMPARISON: 12/27/2017 FINDINGS: Normal size of the ventricles and extra-axial spaces for the patient''s age. There is no change in a few of the hyperintensities in the periventricular and pericallosal white matter consistent with known demyelinating disease (multiple sclerosis). The largest lesion measures 1 cm diameter in the periapical white matter of the anterior right parietal lobe. No lesions demonstrate contrast enhancement to suggest active MS plaque. There is no evidence for recent intracranial ischemia or other cause of cytotoxic edema on diffusion weighted imaging (DWI). Normal T2* images of the brain without demonstrated susceptibility artifact. There is no demonstrated hemosiderin stain. Normal bilateral basal ganglia. Normal thalami. There is no extra-axial fluid accumulation. Normal flow voids within the major intracranial circulation suggesting patency by spin echo criteria. Normal venous enhancement. There is no enhancing intra-axial or extra-axial abnormality. Normal sella turcica, pituitary gland, infundibular stalk, optic chiasm and hypothalamus. Normal tectal plate and pineal gland. Normal midbrain, yina and medulla. Normal cerebellum. Normal basal cisterns. Normal bilateral temporal bones. Normal bilateral internal auditory canals. No demonstrated orbital abnormality, within the constraints of a routine brain study. Normal visualized paranasal sinuses. Normal calvarium and skull base. Normal visualized soft tissue structures. Normal visualized upper cervical spine. MRI/Brain W/WO Contrast IMPRESSION: No change in known demyelinating disease (multiple sclerosis). No contrast-enhancing plaque. Electronically Signed: Addison Grajeda MD at 15:44 EST Tel , Service support ,
== END ==
PROVIDERS: PCP Family Medicine Geriatric Medicine; Referring Provider Psychiatry & Neurology Neurology; Visit Provider Psychiatry & Neurology Neurology
DX: G35 Multiple sclerosis (principal)
CPT/HCPCS: 70553; A9575

== ENCOUNTER → 2020-03-07 04:27 | Outpatient (CLI) | payer MEDICARE, MEDICAID, SELFPAY ==
[2020-03-07 10:45] LABS: Absolute Lymphocyte Count 0.33 X10^3/uL (0.83-4.51); Absolute Neutrophil Count 6.1 X10^3/uL (2.0-7.7); Basophil# 0.04 X10^3/uL; Basophil% 0.6 % (0-1); Eosinophil# 0.16 X10^3/uL; Eosinophils% 2.3 % (0-5); Hematocrit 39.9 % (37-47); Hemoglobin 12.8 g/dL (12.0-15.0); Lymphocyte # 0.33 X10^3/ul (4.0); Lymphocyte % 4.7 % (19-41); Mean Corp Hgb Conc 32.1 g/dL (32-36); Mean Corpuscular Hgb 29.6 pg (27.0-32.0); Mean Corpuscular Volume 92.1 fL (81-99); Mean Platelet Vol. 9.7 fl (6.2-12.0); Monocyte# 0.42 X10^3/uL; Monocyte% 5.9 % (0-10); NRBC Flagged by Analyzer 0 % (0-5); Neutrophil # 6.07 X10^3/uL (2.7-7.7); Neutrophil % 85.9 % (47-70); POSITIVE DIFFERENTIAL YES; Platelet Count 312 K/mm3 (150-450); RBC Distribution Width CV 14.9 % (11.6-14.6); RBC Distribution Width SD 50.4 fl (35.1-43.9); Red Blood Count 4.33 M/mm3 (4.2-5.4); White Blood Count 7.1 K/mm3 (4.4-11.0)
[2020-03-07 10:47] LABS: Differential Indicated SCAN CRITERIA MET
[2020-03-07 11:00] LABS: Hemoglobin A1c 8.7 % (3.8-5.6)
[2020-03-07 11:36] LABS: ALB/GLOB Ratio 0.6 RATIO (0.9-2.4); AST(SGOT) 7 U/L (15-37); Alanine Aminotransfer ALT/SGPT 10 U/L (13-56); Albumin, Serum 2.5 g/dL (3.2-5.0); Alkaline Phosphatase 110 U/L (45-117); Anion Gap 6 (5-15); BUN 16 mg/dL (7-18); BUN/Creat Ratio 20.9 RATIO (10-20); Calcium,Total 8.8 mg/dL (8.5-10.1); Chloride 102 mmol/L (98-107); Cholesterol 133 mg/dL (200); Creatinine, Serum 0.76 mg/dL (0.55-1.02); EST Glomerular Filtration Rate 83 mL/min (>60); Est Glom Filt Rate - Afr Amer 100 mL/min (>60); Glucose 177 mg/dL (74-106); High Density Lipoprotein 36 mg/dL; Potassium 3.4 mmol/L (3.5-5.1); Protein, Total 6.5 g/dL (6.4-8.2); Sodium Level 138 mmol/L (136-145); Thyroid Stim Hormone (TSH) 1.56 uIU/mL (0.358-3.74); Triglycerides 176 mg/dL; Very Low Density Lipoprotein 35 mg/dL (5-40)
== END ==
PROVIDERS: PCP Family Medicine Geriatric Medicine; Referring Provider Family Medicine Geriatric Medicine; Visit Provider Family Medicine Geriatric Medicine
DX: E11.9 Type 2 diabetes mellitus without complications (principal); I10 Essential (primary) hypertension; R53.83 Other fatigue
CPT/HCPCS: 36415; 80053; 80061; 83036; 84443; 85025

== ENCOUNTER → 2020-03-12 13:40 | Outpatient (CLI) | payer MEDICARE, MEDICAID, SELFPAY ==
[2020-03-12 14:46] LABS: Absolute Lymphocyte Count 0.28 X10^3/uL (0.83-4.51); Absolute Neutrophil Count 5.2 X10^3/uL (2.0-7.7); Basophil# 0.02 X10^3/uL; Basophil% 0.3 % (0-1); Eosinophil# 0.13 X10^3/uL; Eosinophils% 2.1 % (0-5); Hematocrit 40.3 % (37-47); Hemoglobin 13.2 g/dL (12.0-15.0); Lymphocyte # 0.28 X10^3/ul (4.0); Lymphocyte % 4.6 % (19-41); Mean Corp Hgb Conc 32.8 g/dL (32-36); Mean Corpuscular Hgb 30.1 pg (27.0-32.0); Mean Corpuscular Volume 91.8 fL (81-99); Mean Platelet Vol. 9.5 fl (6.2-12.0); Monocyte# 0.35 X10^3/uL; Monocyte% 5.8 % (0-10); NRBC Flagged by Analyzer 0 % (0-5); Neutrophil # 5.24 X10^3/uL (2.7-7.7); Neutrophil % 86.4 % (47-70); POSITIVE DIFFERENTIAL YES; Platelet Count 326 K/mm3 (150-450); RBC Distribution Width CV 14.8 % (11.6-14.6); RBC Distribution Width SD 50.8 fl (35.1-43.9); Red Blood Count 4.39 M/mm3 (4.2-5.4); White Blood Count 6.1 K/mm3 (4.4-11.0)
[2020-03-12 14:47] LABS: Differential Indicated SCAN CRITERIA MET
[2020-03-12 15:15] LABS: Vitamin B12 322 pg/mL (211-911)
[2020-03-12 15:23] LABS: ALB/GLOB Ratio 0.7 RATIO (0.9-2.4); AST(SGOT) 14 U/L (15-37); Alanine Aminotransfer ALT/SGPT 17 U/L (13-56); Albumin, Serum 2.8 g/dL (3.2-5.0); Alkaline Phosphatase 110 U/L (45-117); Anion Gap 6 (5-15); BUN 14 mg/dL (7-18); BUN/Creat Ratio 19.9 RATIO (10-20); Calcium,Total 8.7 mg/dL (8.5-10.1); Chloride 102 mmol/L (98-107); EST Glomerular Filtration Rate 91 mL/min (>60); Est Glom Filt Rate - Afr Amer 110 mL/min (>60); Ferritin 32 ng/mL (8-252); Glucose 162 mg/dL (74-106); Iron 61 ug/dL (50-170); Potassium 3.1 mmol/L (3.5-5.1); Protein, Total 6.8 g/dL (6.4-8.2); Sodium Level 139 mmol/L (136-145)
[2020-03-12 15:26] LABS: Differential Comment SCANNED
[2020-03-14 16:09] LABS: Free Kappa Light Chains 22.2 mg/L (3.3-19.4); Free Lambda Light Chains 15.4 mg/L (5.7-26.3)
== END ==
PROVIDERS: PCP Family Medicine Geriatric Medicine; Visit Provider Psychiatry & Neurology Neurology
DX: G62.9 Polyneuropathy, unspecified (principal); G35 Multiple sclerosis; D64.9 Anemia, unspecified; E11.9 Type 2 diabetes mellitus without complications
CPT/HCPCS: 36415; 80053; 82607; 82728; 82746; 83540; 83883; 85025

== ENCOUNTER → 2020-03-29 11:05 | Outpatient (CLI) | payer MEDICARE, MEDICAID, SELFPAY ==
[2020-03-29 11:34] LABS: Color, Urine Yellow (Yellow); Glucose, Dipstick 100 mg/dl (Normal); Ketone-Dipstick 5 mg/dl (Negative); Leukocyte Esterase-Dipstick 500 /ul (Negative); Nitrite-Dipstick Positive (Negative); Occult Blood-Urine 50 /ul (Negative); Protein-Dipstick 30 mg/dl (Negative); Urine Bilirubin Dipstick Negative (Negative); Urine Clarity Sl. Cloudy (Clear); Urine Urobilinogen 1 mg/dl (Normal)
== END ==
LOC: LABSPEC 11:06 → HH 11:20 → HHLAB 04-19 11:35
PROVIDERS: PCP Family Medicine Geriatric Medicine; Referring Provider Family Medicine Geriatric Medicine; Visit Provider Family Medicine Geriatric Medicine
DX: G35 Multiple sclerosis (principal); N32.81 Overactive bladder; R33.9 Retention of urine, unspecified
CPT/HCPCS: 81002; 87077; 87086; 87088; 87186

== ENCOUNTER → 2020-05-09 13:36 | Outpatient (CLI) | payer MEDICARE, MEDICAID, SELFPAY ==
[2020-05-09 15:28] LABS: Absolute Lymphocyte Count 0.39 X10^3/uL (0.83-4.51); Absolute Neutrophil Count 5.4 X10^3/uL (2.0-7.7); Basophil# 0.04 X10^3/uL; Basophil% 0.6 % (0-1); Eosinophil# 0.16 X10^3/uL; Eosinophils% 2.5 % (0-5); Hematocrit 40.8 % (37-47); Hemoglobin 13.1 g/dL (12.0-15.0); Lymphocyte # 0.39 X10^3/ul (4.0); Mean Corp Hgb Conc 32.1 g/dL (32-36); Mean Corpuscular Hgb 29.9 pg (27.0-32.0); Mean Corpuscular Volume 93.2 fL (81-99); Mean Platelet Vol. 9.8 fl (6.2-12.0); Monocyte% 6.2 % (0-10); NRBC Flagged by Analyzer 0 % (0-5); Neutrophil # 5.39 X10^3/uL (2.7-7.7); Neutrophil % 83.6 % (47-70); POSITIVE DIFFERENTIAL YES; Platelet Count 389 K/mm3 (150-450); RBC Distribution Width SD 51.5 fl (35.1-43.9); Red Blood Count 4.38 M/mm3 (4.2-5.4); White Blood Count 6.5 K/mm3 (4.4-11.0)
[2020-05-09 15:34] LABS: Differential Indicated SCAN CRITERIA MET
[2020-05-09 15:37] LABS: Potassium 3.7 mmol/L (3.5-5.1)
[2020-05-14 14:10] LABS: Albumin 2.9 g/dL (2.9-4.4); Alpha-1-Globulins 0.3 g/dL (0.0-0.4); Gamma Globulin 0.6 g/dL (0.4-1.8); Immunoglobulin A 228 mg/dL (87-352); Immunoglobulin G 721 mg/dL (586-1602); Immunoglobulin M 72 mg/dL (26-217); PROEL- TOTAL PROTEIN 6.1 g/dL (6.0-8.5)
== END ==
PROVIDERS: PCP Family Medicine Geriatric Medicine; Referring Provider Psychiatry & Neurology Neurology; Visit Provider Psychiatry & Neurology Neurology
DX: R53.82 Chronic fatigue, unspecified (principal); G35 Multiple sclerosis; G62.9 Polyneuropathy, unspecified
CPT/HCPCS: 36415; 82784; 84132; 84165; 85025; 86334; 86335

== ENCOUNTER 2020-05-21 13:05 | Outpatient (RCR) | payer MEDICARE, MEDICAID, SELFPAY ==
[2020-05-21 16:16] LABS: Color, Urine Yellow (Yellow); Glucose, Dipstick 50 mg/dl (Normal); Ketone-Dipstick Negative (Negative); Leukocyte Esterase-Dipstick 500 /ul (Negative); Nitrite-Dipstick Positive (Negative); Occult Blood-Urine 250 /ul (Negative); Protein-Dipstick 100 mg/dl (Negative); Urine Bilirubin Dipstick Negative (Negative); Urine Clarity Cloudy (Clear); Urine Urobilinogen Normal (Normal)
== END 2020-05-21 18:00 | disposition home or self-care (01) ==
LOC: HHLAB 13:05
PROVIDERS: PCP Family Medicine Geriatric Medicine; Referring Provider Urology; Visit Provider Urology
DX: G35 Multiple sclerosis (principal); N32.81 Overactive bladder; Z46.6 Encounter for fitting and adjustment of urinary device
CPT/HCPCS: 81002; 87077; 87086; 87088; 87186

== ENCOUNTER → 2020-06-28 19:11 | Outpatient (CLI) | payer MEDICARE, MEDICAID, SELFPAY ==
[2020-06-28 20:10] LABS: Color, Urine Yellow (Yellow); Glucose, Dipstick Normal (Normal); Ketone-Dipstick 5 mg/dl (Negative); Leukocyte Esterase-Dipstick 500 /ul (Negative); Nitrite-Dipstick Positive (Negative); Occult Blood-Urine 150 /ul (Negative); Protein-Dipstick 30 mg/dl (Negative); Specific Gravity, Urine 1.015 (1.002-1.030); Urine Bilirubin Dipstick Negative (Negative); Urine Clarity Cloudy (Clear); Urine Urobilinogen Normal (Normal)
== END ==
PROVIDERS: PCP Family Medicine Geriatric Medicine; Referring Provider Family Medicine Geriatric Medicine; Visit Provider Family Medicine Geriatric Medicine
DX: N32.81 Overactive bladder (principal); G35 Multiple sclerosis; Z46.6 Encounter for fitting and adjustment of urinary device
CPT/HCPCS: 81002; 87077; 87086; 87088; 87186

== ENCOUNTER → 2020-07-16 12:56 | Outpatient (CLI) | payer MEDICARE, MEDICAID, SELFPAY ==
--- NOTE | 2020-07-16 13:04 | US_ITS ---
STUDY: RENAL ULTRASOUND - COMPLETE REASON FOR EXAM: Female, 60 years old. Flank pain, limited study TECHNIQUE: Ultrasound evaluation of the kidneys was performed with real-time and static heredia-scale imaging. Study performed with patient in a chair, study is limited by obesity and patient condition COMPARISON: None. FINDINGS: RIGHT KIDNEY: Normal location of the right kidney, which is normal in size. The right kidney measures 9.5 x 5.0 x 4.9 cm. There is a normal cortex of the right kidney. The renal cortex measures 1.6 cm. There is no right renal mass or cyst. There are no right renal calculi. There is no right hydronephrosis. DISTAL RIGHT URETER: There is non-visualization of the distal right ureter. There is no demonstrated right ureterovesical junction calculus. There is a visualized right ureteral jet. LEFT KIDNEY: Normal location of the left kidney, which is normal in size. The left kidney measures 10.1 x 4.1 x 5.0 cm. There is a normal cortex of the left kidney. The renal cortex measures 1.5 cm. There is no left renal mass or cyst. There are no left renal calculi. There is no left hydronephrosis. DISTAL LEFT URETER: There is non-visualization of the distal left ureter. There is no demonstrated left ureterovesical junction calculus. There is a visualized left ureteral jet. AORTA: There is no elongation or tortuosity of the abdominal aorta. I.V.C.: The IVC is patent. BLADDER: The bladder not visualized US/Kidney and Bladder IMPRESSION: No suspicious sonographic findings, bladder not visualized Electronically Signed: Pierce Benedict MD at 8:23 EDT , Service support ,
== END ==
PROVIDERS: PCP Family Medicine Geriatric Medicine; Referring Provider Urology; Visit Provider Urology
DX: N39.0 Urinary tract infection, site not specified (principal); Z96.0 Presence of urogenital implants
CPT/HCPCS: 76770

== ENCOUNTER 2020-07-18 08:24 | Outpatient (RCR) | payer MEDICARE, MEDICAID, SELFPAY | END 2020-07-18 18:00 | disposition home or self-care (01) | LOC: HHLAB 08:24 | PROVIDERS: PCP Family Medicine Geriatric Medicine; Referring Provider Urology; Visit Provider Urology | DX: R33.9 Retention of urine, unspecified (principal); G35 Multiple sclerosis; M79.2 Neuralgia and neuritis, unspecified | CPT/HCPCS: 87077; 87086; 87088; 87186 ==

== ENCOUNTER 2020-09-04 12:46 | Outpatient (RCR) | payer MEDICARE, MEDICAID, SELFPAY | END 2020-09-04 18:00 | disposition home or self-care (01) | LOC: HHLAB 12:46 | PROVIDERS: PCP Family Medicine Geriatric Medicine; Referring Provider Urology; Visit Provider Urology | DX: N39.0 Urinary tract infection, site not specified (principal); G35 Multiple sclerosis | CPT/HCPCS: 87077; 87086; 87088; 87186 ==

== ENCOUNTER 2021-02-20 16:13 | Outpatient (RCR) | payer MEDICARE, MEDICAID, SELFPAY ==
[2021-02-20 17:02] LABS: Color, Urine Yellow (Yellow); Glucose, Dipstick 100 mg/dl (Normal); Ketone-Dipstick 15 mg/dl (Negative); Leukocyte Esterase-Dipstick 500 /ul (Negative); Nitrite-Dipstick Positive (Negative); Occult Blood-Urine 250 /ul (Negative); Protein-Dipstick 100 mg/dl (Negative); Urine Clarity Cloudy (Clear); Urine Urobilinogen 4 mg/dl (Normal)
[2021-02-20 17:23] LABS: Urine Bilirubin Dipstick 1 mg/dL (Negative)
== END 2021-02-20 18:00 | disposition home or self-care (01) ==
LOC: HHLAB 16:13
PROVIDERS: PCP Family Medicine Geriatric Medicine; Referring Provider Urology; Visit Provider Urology
DX: R33.9 Retention of urine, unspecified (principal)
CPT/HCPCS: 81002; 87086; 87088

== ENCOUNTER 2021-05-22 16:12 | Outpatient (RCR) | payer MEDICARE, MEDICAID, SELFPAY ==
[2021-05-16 11:33] LABS: Color, Urine Yellow (Yellow); Glucose, Dipstick 1000 mg/dl (Normal); Ketone-Dipstick Negative (Negative); Leukocyte Esterase-Dipstick 500 /ul (Negative); Nitrite-Dipstick Positive (Negative); Occult Blood-Urine 250 /ul (Negative); Protein-Dipstick 100 mg/dl (Negative); Specific Gravity, Urine 1.015 (1.002-1.030); Urine Bilirubin Dipstick Negative (Negative); Urine Clarity Sl. Cloudy (Clear); Urine Urobilinogen Normal (Normal)
[2021-05-22 17:48] LABS: Color, Urine Yellow (Yellow); Glucose, Dipstick 1000 mg/dl (Normal); Ketone-Dipstick Negative (Negative); Leukocyte Esterase-Dipstick 500 /ul (Negative); Nitrite-Dipstick Negative (Negative); Occult Blood-Urine 50 /ul (Negative); Protein-Dipstick 30 mg/dl (Negative); Urine Bilirubin Dipstick Negative (Negative); Urine Clarity Sl. Cloudy (Clear); Urine Urobilinogen Normal (Normal)
== END 2021-05-29 18:00 | disposition home or self-care (01) ==
LOC: HHLAB 16:12
PROVIDERS: PCP Family Medicine Geriatric Medicine; Referring Provider Urology; Visit Provider Urology
DX: Z46.6 Encounter for fitting and adjustment of urinary device (principal); R33.9 Retention of urine, unspecified
CPT/HCPCS: 81002; 87077; 87086; 87088; 87186

== ENCOUNTER 2021-07-05 18:16 | Emergency (ER) | payer MEDICARE, MEDICAID, SELFPAY ==
[2021-07-05 18:18] VITALS: BP 138/103; PULSE 91; RESP 18; TEMP 36.8; O2SAT 100; BMI 45.5
--- NOTE | 2021-07-05 18:55 | ED.VIS.FEGU ---
HPI HPI - Female History of Present Illness Chief Complaint: Valenzuela C/O Informant: patient Narrative Narrative: Patient has a chronic indwelling Valenzuela for urinary retention, it has not been 4 weeks since her last change yet, but her home health nurse tried to change her Valenzuela today because she had a lot of sediment and blocked the catheter. She removed it but then was unable to get a new one in so sent her to get a Valenzuela catheter. The patient has no other complaints right now. [facility] Medical History (Updated 07/05/21 @ 18:[address] Lobo Ramirez MD) Anxiety Bedbound delivery delivered Depression History of multiple sclerosis Lymphedema Morbid obesity Multiple sclerosis Polyneuropathy Type II diabetes mellitus Vitamin d deficiency Home Medications rosuvastatin 40 mg PO DAILY 03/07/13 [History Last Taken 08/03/16 20:00] clotrimazole 1 % topical cream 1 applic TOPICAL BID 12/21/19 [History Last Taken Unknown] glimepiride 4 mg tablet 4 mg PO BID tab 12/21/19 [History Last Taken Unknown] insulin degludec 200 unit/mL (3 mL) subcutaneous pen 72 unit SC DAILY ml 12/21/19 [History Last Taken Unknown] levothyroxine 50 mcg tablet 50 mcg PO DAILY 12/21/19 [History Last Taken Unknown] mirabegron 50 mg tablet,extended release 24 hr 50 mg PO DAILY 12/21/19 [History Last Taken Unknown] pantoprazole 20 mg tablet,delayed release 20 mg PO DAILY 12/21/19 [History Last Taken Unknown] semaglutide 0.5 mg SC QWEEK 12/21/19 [History Last Taken Unknown] tolterodine 4 mg capsule,extended release 24 hr 4 mg PO DAILY 12/21/19 [History Last Taken Unknown] cholecalciferol (vitamin D3) 1,250 mcg (50,000 unit) capsule 1,250 mcg PO QWEEK #4 cap 05/09/20 [Rx Last Taken Unknown] gabapentin 600 mg tablet 300 mg PO TID tab 05/09/20 [History Last Taken Unknown] baclofen 20 mg tablet 20 mg PO 4X/DAY #360 tab 10/17/20 [Rx Last Taken Unknown] meloxicam 15 mg tablet 15 mg PO DAILY #30 tab 10/17/20 [Rx Last Taken Unknown] tizanidine 4 mg tablet 2 mg PO TID PRN #45 tablet 10/17/20 [Rx Last Taken Unknown] fingolimod 0.5 mg capsule 0.5 mg PO .COMPLEX #10 cap 05/14/21 [Rx Last Taken Unknown] duloxetine 60 mg capsule,delayed release 60 mg PO BID #180 cap 06/30/21 [Rx Last Taken Unknown] Allergy/AdvReac Type Severity Reaction Status Date / Time ampicillin [From Unasyn] Allergy Severe Rash Verified 10/17/20 14:01 sulbactam [From Unasyn] Allergy Severe Rash Verified 10/17/20 14:01 ciprofloxacin [From Cipro] Allergy Hives Verified 10/17/20 14:01 ciprofloxacin HCl Allergy Hives Verified 10/17/20 14:01 [From Cipro] clindamycin HCl Allergy Hives Verified 10/17/20 14:01 [From Cleocin] clindamycin palmitate HCl Allergy Hives Verified 10/17/20 14:01 [From Cleocin] clindamycin phosphate Allergy Hives Verified 10/17/20 14:01 [From Cleocin] morphine Allergy Hives Verified 10/17/20 14:01 sulfamethoxazole Allergy Hives Verified 07/05/21 18:17 [From Bactrim] trimethoprim [From Bactrim] Allergy Hives Verified 07/05/21 18:17 hydromorphone HCl AdvReac messes Verified 10/17/20 14:01 [From Dilaudid] with my brain Family History Unknown Multiple sclerosis 1st cousin Surgical History H/O hernia repair History of cholecystectomy Social History Smoking Status: Never smoker alcohol intake: never substance use type: does not use ROS ROS ED Constitutional Constitutional ED: Denies chills or fever(s) Eyes Eyes: Denies change in vision or diplopia ENT ENT ED: Denies rhinorrhea or sore throat Cardiovascular Cardiovascular: Denies chest pain or palpitations Respiratory/Chest Respiratory/Chest: Denies cough or dyspnea Gastrointestinal Gastrointestinal: Denies abdominal pain, diarrhea, nausea or vomiting Genitourinary Genitourinary ED: Reports as per HPI and other Details: Chronic urinary retention ; Denies hematuria Musculoskeletal Musculoskeletal: Denies back pain or neck pain Integumentary Denies abscess or rash Neurologic Neurologic: Denies abnormal speech or headache(s) Psychiatric Psychiatric: Denies anxiety or suicidal thoughts EXAM Physical Exam Const Vital Signs: 07/05/21 18:18 Temperature 98.2 F Temperature Source Temporal Pulse Rate 91 Respiratory Rate 18 Blood Pressure 138/103 H Blood Pressure Mean 114 Pulse Ox 100 Oxygen Delivery Method Room Air Positive well nourished and well developed General Appearance ED: well developed and NAD HEENT Reports moist mucous membranes normocephalic and atraumatic Eyes PERRL and EOMs intact bilaterally Neck full ROM and supple Resp normal respiratory effort and clear to auscultation bilaterally Cardio regular rate, regular rhythm and no murmurs GI non-tender and non-distended GI Narrative: Morbidly obese abdomen Auscultation: normoactive bowel sounds Palpation: soft no CVA tenderness and external exam normal Back/Spine no CVA tenderness General Back: other FROM Extremity normal to inspection General Extremety ED: Negative for edema, pulses abnormal or tenderness General Extremity: Negative for edema or pulses abnormal Neuro oriented x3 and CN's II-XII intact bilaterally Sensorium / Orientation: awake and alert Skin no rashes or lesions noted and no wounds MDM MDM MDM Narrative Medical decision making narrative: Nursing placed a new Valenzuela catheter without difficulty, there is transparent yellow urine flowing and her abdomen is benign. Discharged home stable condition follow-up as needed. Discharge Plan Triage Chief Complaint: Valenzuela C/O ED Provider: Lobo Ramirez Dx/Rx/DC Orders Clinical Impression: Encounter for Valenzuela catheter replacement, Acute on chronic urinary retention Instructions: ED Valenzuela Catheter, Care Prescriptions: No Action pantoprazole 20 mg tablet,delayed release (DR/EC) 20 mg PO DAILY RF: 0 tolterodine 4 mg capsule,extended release 24hr 4 mg PO DAILY RF: 0 levothyroxine [Synthroid] 50 mcg tablet 50 mcg PO DAILY RF: 0 clotrimazole 1 % cream 1 applic TOPICAL BID RF: 0 Tresiba FlexTouch U-200 200 unit/mL (3 mL) insulin pen 72 unit SC DAILY RF: 0 Ozempic 0.25 mg or 0.5 mg(2 mg/1.5 mL) pen injector 0.5 mg SC QWEEK RF: 0 Myrbetriq 50 mg tablet extended release 24 hr 50 mg PO DAILY RF: 0 glimepiride 4 mg tablet 4 mg PO BID RF: 0 gabapentin 600 mg tablet 300 mg PO TID RF: 0 cholecalciferol (vitamin D3) 1,250 mcg (50,000 unit) capsule 1,250 mcg PO QWEEK Qty: 4 RF: 1 meloxicam 15 mg tablet 15 mg PO DAILY Qty: 30 RF: 4 baclofen 20 mg tablet 20 mg PO 4X/DAY Qty: 360 RF: 1 tizanidine 4 mg tablet 2 mg PO TID PRN (Reason: muscle spasticity) Qty: 45 RF: 3 rosuvastatin 40 MG tablet 40 mg PO DAILY RF: 0 Gilenya 0.5 mg capsule 0.5 mg PO .COMPLEX Qty: 10 RF: 3 duloxetine 60 mg capsule,delayed release(DR/EC) 60 mg PO BID Qty: 180 RF: 0 Primary Care Provider: Shar Kebede Chi Referrals: Aimee Batista MD [STAFF PHYSICIAN] - As Needed Shar Kebede Chi, MD [Primary Care Provider] - Disposition Disposition: Home, Self Care
[2021-07-05 21:55] VITALS: BP 110/76; PULSE 74; RESP 16; TEMP 36.6; O2SAT 99
[2021-07-06 01:45] VITALS: BP 126/78; PULSE 72; RESP 18; O2SAT 98
== END 2021-07-06 01:46 | disposition home or self-care (01) ==
PROVIDERS: Emergency Provider Emergency Medicine; PCP Family Medicine Geriatric Medicine; Visit Provider Emergency Medicine
DX: T83.89XA Other specified complication of genitourinary prosthetic devices, implants and grafts, initial encounter (principal); R33.9 Retention of urine, unspecified
CPT/HCPCS: 51702; 99285

== ENCOUNTER → 2021-07-18 | Outpatient (CLI) | payer MEDICARE, MEDICAID, SELFPAY ==
--- NOTE | 2021-07-18 12:37 | US_ITS ---
STUDY: RENAL ULTRASOUND - COMPLETE REASON FOR EXAM: Female, 61 years old. UTI -- PATIENT HAS A IZQUIERDO TECHNIQUE: Ultrasound evaluation of the kidneys was performed with real-time and static heredia-scale imaging. COMPARISON: Comparison is made with prior study of 07/16/2020. FINDINGS: RIGHT KIDNEY: Normal location of the right kidney, which is normal in size. The right kidney measures 9.3 cm x 3.95 x 4.4 cm. There is a normal cortex of the right kidney. The renal cortex measures 1.7 cm. There is no right renal mass or cyst. 4 mm calculus in the midpole. There is no right hydronephrosis. DISTAL RIGHT URETER: There is non-visualization of the distal right ureter. There is no demonstrated right ureterovesical junction calculus. There is no demonstrated right ureteral jet. LEFT KIDNEY: Normal location of the left kidney, which is normal in size. The left kidney measures 10.4 cm x 3.8 PEPE by 4.5 cm. There is a normal cortex of the left kidney. The renal cortex measures 1.5 cm. There is no left renal mass or cyst. There are no left renal calculi. There is no left hydronephrosis. DISTAL LEFT URETER: There is non-visualization of the distal left ureter. There is no demonstrated left ureterovesical junction calculus. There is a visualized left ureteral jet. BLADDER: A IZQUIERDO catheter is seen within the bladder dose limiting the evaluation. US/Kidney and Bladder IMPRESSION: Findings suggestive of a 4 mm calculus in the midportion of the right kidney. Electronically Signed: Jason Poole MD at 15:32 EDT ,
--- NOTE | 2021-07-18 12:54 | RAD_ITS ---
STUDY: XR Abdomen 1 View 07/18/2021 1:05 PM REASON FOR EXAM: Female, 61 years old. ABDOMINAL PAIN UTI TECHNIQUE: XR Abdomen 1 View COMPARISON: 05/12/2018 FINDINGS: Degenerative findings in the lumbar spine. There is a moderate amount of colonic fecal material. There is no demonstrated free abdominal air. The visualized liver, spleen and kidneys are grossly normal in size and morphology. There are bilateral tubal ligation clips. Normal soft tissue structures. Degenerative findings of the right hip. An intrauterine device is identified in the pelvis and this is likely within the uterus. RAD/Abdomen Single View IMPRESSION: Constipation. Electronically Signed: Mohamud Howard MD at 19:08 EDT ,
== END | disposition home or self-care (01) ==
LOC: US 12:35
PROVIDERS: PCP Family Medicine Geriatric Medicine; Visit Provider Urology
DX: N39.0 Urinary tract infection, site not specified (principal)
CPT/HCPCS: 74018; 76770

== ENCOUNTER 2021-09-03 11:00 | Outpatient (RCR) | payer MEDICARE, MEDICAID, SELFPAY ==
[2021-09-03 11:28] LABS: Color, Urine Yellow (Yellow); Glucose, Dipstick 250 mg/dl (Normal); Ketone-Dipstick Negative (Negative); Leukocyte Esterase-Dipstick 500 /ul (Negative); Nitrite-Dipstick Positive (Negative); Occult Blood-Urine 250 /ul (Negative); Protein-Dipstick 100 mg/dl (Negative); Urine Bilirubin Dipstick Negative (Negative); Urine Clarity Cloudy (Clear); Urine Urobilinogen Normal (Normal)
== END 2021-09-27 21:44 | disposition home or self-care (01) ==
LOC: HHLAB 11:00
PROVIDERS: PCP Family Medicine Geriatric Medicine; Referring Provider Urology; Visit Provider Urology
DX: N39.0 Urinary tract infection, site not specified (principal)
CPT/HCPCS: 81002; 87077; 87086; 87088; 87186

== ENCOUNTER 2021-11-28 16:38 | Outpatient (RCR) | payer MEDICARE, MEDICAID, SELFPAY ==
[2021-11-28 16:48] LABS: Color, Urine Yellow (Yellow); Glucose, Dipstick Normal (Normal); Ketone-Dipstick 5 mg/dl (Negative); Leukocyte Esterase-Dipstick 500 /ul (Negative); Nitrite-Dipstick Negative (Negative); Occult Blood-Urine 150 /ul (Negative); Protein-Dipstick 100 mg/dl (Negative); Specific Gravity, Urine 1.015 (1.002-1.030); Urine Clarity Cloudy (Clear); Urine Urobilinogen 1 mg/dl (Normal)
[2021-11-28 16:49] LABS: Urine Bilirubin Dipstick 1 mg/dL (Negative)
== END 2021-11-28 18:00 | disposition home or self-care (01) ==
LOC: HHLAB 16:38
PROVIDERS: PCP Family Medicine Geriatric Medicine; Visit Provider Nurse Practitioner Family
DX: Z46.6 Encounter for fitting and adjustment of urinary device (principal); R33.9 Retention of urine, unspecified; G35 Multiple sclerosis
CPT/HCPCS: 81002; 87077; 87086; 87088; 87186

== ENCOUNTER 2021-12-03 12:59 | Inpatient (IN) | payer MEDICARE, MEDICAID, SELFPAY ==
[2021-12-03] VITALS (7 sets, daily range): BP systolic 103–124; BP diastolic 62–84; PULSE 75–86; RESP 16; TEMP 36.3–36.9; O2SAT 94–100; BMI 44.0; BMI 42.1
[2021-12-03 13:55] LABS: Mucous, Urine 0 SEEN /hpf (<or=2+); Squamous Epithelial Cells - UA 0 SEEN /hpf (5-10)
[2021-12-03 14:01] LABS: Color, Urine Yellow (Yellow); Glucose, Dipstick Normal (Normal); Ketone-Dipstick Negative (Negative); Leukocyte Esterase-Dipstick 500 /ul (Negative); Nitrite-Dipstick Negative (Negative); Occult Blood-Urine 250 /ul (Negative); Protein-Dipstick 100 mg/dl (Negative); Urine Bilirubin Dipstick Negative (Negative); Urine Clarity Sl. Cloudy (Clear); Urine Urobilinogen Normal (Normal)
[2021-12-03 14:03] LABS: Absolute Neutrophil Count 4.9 X10^3/uL (2.0-7.7); Basophil# 0.07 X10^3/uL; Basophil% 1.1 % (0-1); Eosinophil# 0.23 X10^3/uL; Eosinophils% 3.5 % (0-5); Hematocrit 42.5 % (37-47); Hemoglobin 14.7 g/dL (12.0-15.0); Lymphocyte % 13.6 % (19-41); Mean Corp Hgb Conc 34.6 g/dL (32-36); Mean Corpuscular Hgb 31.5 pg (27.0-32.0); Mean Platelet Vol. 9.6 fl (6.2-12.0); Monocyte# 0.49 X10^3/uL; Monocyte% 7.4 % (0-10); NRBC Flagged by Analyzer 0 % (0-5); Neutrophil # 4.88 X10^3/uL (2.7-7.7); Neutrophil % 73.9 % (47-70); Platelet Count 271 K/mm3 (150-450); RBC Distribution Width CV 14.1 % (11.6-14.6); RBC Distribution Width SD 47.4 fl (35.1-43.9); Red Blood Count 4.67 M/mm3 (4.2-5.4); White Blood Count 6.6 K/mm3 (4.4-11.0)
[2021-12-03 14:13] LABS: Anion Gap 7 (5-15); BUN 16 mg/dL (7-18); BUN/Creat Ratio 18.8 RATIO (10-20); Calcium,Total 9.3 mg/dL (8.5-10.1); Chloride 99 mmol/L (98-107); Creatinine, Serum 0.85 mg/dL (0.55-1.02); EST Glomerular Filtration Rate 73 mL/min (>60); Est Glom Filt Rate - Afr Amer 88 mL/min (>60); Estimated Creatinine Clearance 107.55 ml/min; Glucose 202 mg/dL (74-106); Potassium 3.4 mmol/L (3.5-5.1); Sodium Level 137 mmol/L (136-145)
[2021-12-03 14:16] LABS: Bacteria 4+ /hpf (None Seen); Red Blood Cells-Urine > 100 SEEN /hpf (0-5); White Blood Cells 50-100 SEEN /hpf (0-5)
--- NOTE | 2021-12-03 14:40 | ED.VIS.FEGU ---
HPI HPI - Female History of Present Illness Chief Complaint: Complaint Narrative Narrative: 61-year-old female presenting with concern for multidrug-resistant UTI. She has indwelling Valenzuela catheter. Apparently this was cultured and showed this. The patient herself states she is not ill. She has not had a fever, chills, nausea, vomiting. She denies abdominal pain. She states that she does note that she has cloudy urine. She states that she gets antibiotics periodically and this will clear this up and then it will come back. [facility] Medical History Anxiety Bedbound delivery delivered Depression History of multiple sclerosis Lymphedema Morbid obesity Multiple sclerosis Polyneuropathy Type II diabetes mellitus Vitamin d deficiency Home Medications rosuvastatin 40 mg tablet 40 mg PO DAILY 03/07/13 [History Last Taken 08/03/16 20:00] clotrimazole 1 % topical cream 1 applic topical BID 12/21/19 [History Last Taken Unknown] glimepiride 4 mg tablet 4 mg PO BID 12/21/19 [History Last Taken Unknown] insulin degludec 200 unit/mL (3 mL) subcutaneous pen (Tresiba FlexTouch U-200 insulin) 72 unit subcut DAILY 12/21/19 [History Last Taken Unknown] levothyroxine 50 mcg tablet (Synthroid) 50 mcg PO DAILY 12/21/19 [History Last Taken Unknown] mirabegron 50 mg tablet,extended release 24 hr (Myrbetriq) 50 mg PO DAILY 12/21/19 [History Last Taken Unknown] pantoprazole 20 mg tablet,delayed release 20 mg PO DAILY 12/21/19 [History Last Taken Unknown] semaglutide 0.25 mg or 0.5 mg (2 mg/1.5 mL) subcutaneous pen injector (Ozempic) 0.5 mg subcut QWEEK 12/21/19 [History Last Taken Unknown] tolterodine 4 mg capsule,extended release 24 hr 4 mg PO DAILY 12/21/19 [History Last Taken Unknown] cholecalciferol (vitamin D3) 1,250 mcg (50,000 unit) capsule 1,250 mcg PO QWEEK #4 caps 05/09/20 [Rx Last Taken Unknown] gabapentin 600 mg tablet 300 mg PO TID 05/09/20 [History Last Taken Unknown] baclofen 20 mg tablet 20 mg PO 4X/DAY #360 tabs 10/17/20 [Rx Last Taken Unknown] meloxicam 15 mg tablet 15 mg PO DAILY #30 tabs 10/17/20 [Rx Last Taken Unknown] tizanidine 4 mg tablet 2 mg PO TID PRN muscle spasticity #45 tabs 10/17/20 [Rx Last Taken Unknown] fingolimod 0.5 mg capsule (TextRecruit) 0.5 mg PO .COMPLEX #10 caps 05/14/21 [Rx Last Taken Unknown] duloxetine 60 mg capsule,delayed release 60 mg PO BID #180 caps 06/30/21 [Rx Last Taken Unknown] Allergy/AdvReac Type Severity Reaction Status Date / Time ampicillin [From Unasyn] Allergy Severe Rash Verified 10/17/20 14:01 sulbactam [From Unasyn] Allergy Severe Rash Verified 10/17/20 14:01 ciprofloxacin [From Cipro] Allergy Hives Verified 10/17/20 14:01 ciprofloxacin HCl Allergy Hives Verified 10/17/20 14:01 [From Cipro] clindamycin HCl Allergy Hives Verified 10/17/20 14:01 [From Cleocin] clindamycin palmitate HCl Allergy Hives Verified 10/17/20 14:01 [From Cleocin] clindamycin phosphate Allergy Hives Verified 10/17/20 14:01 [From Cleocin] morphine Allergy Hives Verified 10/17/20 14:01 sulfamethoxazole Allergy Hives Verified 07/05/21 18:17 [From Bactrim] trimethoprim [From Bactrim] Allergy Hives Verified 07/05/21 18:17 hydromorphone HCl AdvReac messes Verified 10/17/20 14:01 [From Dilaudid] with my brain Family History Unknown Multiple sclerosis 1st cousin Surgical History H/O hernia repair History of cholecystectomy Social History Smoking Status: Never smoker alcohol intake: never substance use type: does not use EXAM Physical Exam Const Vital Signs: 12/03/21 12:59 Temperature 98.3 F Temperature Source Oral Pulse Rate 85 Respiratory Rate 16 Blood Pressure 124/84 H Blood Pressure Mean 97 Pulse Ox 96 Oxygen Delivery Method Room Air Positive well nourished General Appearance ED: NAD; Negative for pallor HEENT Reports moist mucous membranes Negative for trauma Eyes PERRL and EOMs intact bilaterally Resp normal respiratory effort and clear to auscultation bilaterally Auscultation: Negative for rales, rhonchi or wheezes Cardio regular rate and regular rhythm GI normal to inspection, nondistended, normoactive bowel sounds Back/Spine no CVA tenderness Extremity normal to inspection Neuro oriented x3 and CN's II-XII intact bilaterally Sensorium / Orientation: alert Psych mental status grossly normal Skin Skin Narrative: Small area of erythema on the left upper abdominal wall which is about 3 cm and a small area of a similar looking erythema just inferior measuring about a centimeter. These are not raised. They are not vesicular. They are not tender. There is no crepitance. They are not in a dermatomal pattern. General Skin Exam: Negative for jaundice or pallor MDM MDM MDM Narrative Medical decision making narrative: Patient presents with multidrug-resistant organism in her urine. She states that she does have cloudiness in her urine that stands to get a little bit better with antibiotics but then gets worse. She has no systemic signs or symptoms. CBC and BMP are unremarkable. Urinalysis here consistent with infection however it is from a Valenzuela catheter bag. I discussed this with the hospitalist who is amenable to admitting her. She recommended cefepime given the resistance pattern. Patient will see ID inpatient. Impression: 1. Multidrug-resistant UTI Lab Data Attestation: I reviewed the patient's lab results. Labs: Laboratory Results - last 24 hr 12/03/21 12/03/21 12/03/21 13:30 13:51 13:51 WBC 6.6 RBC 4.67 Hgb 14.7 Hct 42.5 MCV 91.0 MCH 31.5 MCHC 34.6 RDW Std Deviation 47.4 H RDW Coeff of Mele 14.1 Plt Count 271 MPV 9.6 Immature Gran % (Auto) 0.500 Neut % (Auto) 73.9 H Lymph % (Auto) 13.6 L [place] % (Auto) 7.4 Eos % (Auto) 3.5 Baso % (Auto) 1.1 H Absolute Neuts (auto) 4.9 Absolute Lymphs (auto) 0.90 Nucleated RBC % 0 Sodium 137 Potassium 3.4 L Chloride 99 Carbon Dioxide 31.0 Anion Gap 7 BUN 16 Creatinine 0.85 Estim Creat Clear Calc 107.55 Est GFR (MDRD) Af Amer 88 Est GFR (MDRD) Non-Af 73 BUN/Creatinine Ratio 18.8 Glucose 202 H Calcium 9.3 Urine Color Yellow Urine Clarity Sl. Cloudy Urine pH 7.0 Ur Specific [place] 1.010 Urine Protein 100 H Urine Glucose (UA) Normal Urine Ketones Negative Urine Occult Blood 250 H Urine Nitrite Negative Urine Bilirubin Negative Urine Urobilinogen Normal Ur Leukocyte Esterase 500 H Urine RBC > 100 SEEN Urine WBC 50-100 SEEN Ur Squamous Epith Cells 0 SEEN Urine Bacteria 4+ Urine Mucus 0 SEEN Discharge Plan Triage Chief Complaint: Complaint ED Provider: Rip Fitzgerald Dx/Rx/DC Orders Prescriptions: No Action pantoprazole 20 mg tablet,delayed release (DR/EC) 20 mg PO DAILY tolterodine 4 mg capsule,extended release 24hr 4 mg PO DAILY levothyroxine [Synthroid] 50 mcg tablet 50 mcg PO DAILY clotrimazole 1 % cream 1 applic TOPICAL BID Tresiba FlexTouch U-200 200 unit/mL (3 mL) insulin pen 72 unit SC DAILY Ozempic 0.25 mg or 0.5 mg(2 mg/1.5 mL) pen injector 0.5 mg SC QWEEK Myrbetriq 50 mg tablet extended release 24 hr 50 mg PO DAILY glimepiride 4 mg tablet 4 mg PO BID gabapentin 600 mg tablet 300 mg PO TID cholecalciferol (vitamin D3) 1,250 mcg (50,000 unit) capsule 1,250 mcg PO QWEEK Qty: 4 1RF meloxicam 15 mg tablet 15 mg PO DAILY Qty: 30 4RF baclofen 20 mg tablet 20 mg PO 4X/DAY Qty: 360 1RF tizanidine 4 mg tablet 2 mg PO TID PRN (Reason: muscle spasticity) Qty: 45 3RF rosuvastatin 40 MG tablet 40 mg PO DAILY Label Comments: Cholesterol [place]en[place] 0.5 mg capsule 0.5 mg PO .COMPLEX Qty: 10 3RF Rx Instructions: 0.5 mg PO every 3 days duloxetine 60 mg capsule,delayed release(DR/EC) 60 mg PO BID Qty: 180 0RF Primary Care Provider: Shar Kebede Chi Referrals: Shar Kebede Chi, MD [Primary Care Provider] -
--- NOTE | 2021-12-03 15:04 | NURSING ---
med surg white mdro uti
--- NOTE | 2021-12-03 15:11 | HP.PCM.HOS_ITS ---
HPI - General General Date of Admission: 12/03/21 Date of Service: 12/03/21 Chief Complaint: Foul smelling urine, cloudy, PCP dx UTI, referred to ED secondary to MODR Cx for abx therapy. HPI Narrative The patient is a 61 y/o F w/ PMHx: Hypothyroidism, HLD, Morbid Obesity, Depression and Anxiety, Chronic BL LE Lymphedema, Diabetes mellitus type II with neuropathy, Multiple Sclerosis with chronic bedbound status with NWB to BL LE who presents to the [facility] ED on 12/03/21 with history of onset on approximately 11/27/21 foul-smelling urine as well as increased urinary cloudiness which has been similar to her presentation in the past as she is a chronic indwelling Valenzuela for urinary tract infection with last Valenzuela change per her report by home health care nurse on potentially 11/25/21 or 04/28/21 prompting PCP evaluation and urine culture 11/28/2021 with resulting multi organism drug-resistant Proteus and Pseudomonas complicated UTI requiring IV antibiotic therapy prompting PCP referral of patient to the ED for IV antibiotics. Patient denies any abdominal pain, suprapubic discomfort, fevers or chills with her current UTI. Work-up in the ED included T98.3, heart rate 85, BP 124/84, respiratory rate 16, 96% on room air, CBC with WC 6.6, hemoglobin 14.7, platelet 271 without marked shift, BMP with potassium 3.4, glucose 202 otherwise unremarkable, urinalysis significant appearing with recent urine culture as noted outpatient. Discussed with patient given her foul-smelling urine and reportedly cloudy both of which are not her baseline we will continue with antibiotic therapy but will involve infectious disease as patient likely has chronic colonization and want to avoid routinely having patient administered IV antibiotic therapy in the ED based on patient allergy histories as well as sensitivities/speciation pattern from rec ent culture discussed with ED physician and requested she be administered IV cefepime. [facility] Medical History Anxiety Bedbound delivery delivered Depression History of multiple sclerosis Lymphedema Morbid obesity Multiple sclerosis Polyneuropathy Type II diabetes mellitus Vitamin d deficiency Home Medications rosuvastatin 40 mg tablet 40 mg PO DAILY 03/07/13 [History Last Taken 08/03/16 20:00] clotrimazole 1 % topical cream 1 applic topical BID 12/21/19 [History Last Taken Unknown] glimepiride 4 mg tablet 4 mg PO BID 12/21/19 [History Last Taken Unknown] insulin degludec 200 unit/mL (3 mL) subcutaneous pen (Tresiba FlexTouch U-200 insulin) 72 unit subcut DAILY 12/21/19 [History Last Taken Unknown] levothyroxine 50 mcg tablet (Synthroid) 50 mcg PO DAILY 12/21/19 [History Last Taken Unknown] mirabegron 50 mg tablet,extended release 24 hr (Myrbetriq) 50 mg PO DAILY 12/21/19 [History Last Taken Unknown] pantoprazole 20 mg tablet,delayed release 20 mg PO DAILY 12/21/19 [History Last Taken Unknown] semaglutide 0.25 mg or 0.5 mg (2 mg/1.5 mL) subcutaneous pen injector (Ozempic) 0.5 mg subcut QWEEK 12/21/19 [History Last Taken Unknown] tolterodine 4 mg capsule,extended release 24 hr 4 mg PO DAILY 12/21/19 [History Last Taken Unknown] cholecalciferol (vitamin D3) 1,250 mcg (50,000 unit) capsule 1,250 mcg PO QWEEK #4 caps 05/09/20 [Rx Last Taken Unknown] gabapentin 600 mg tablet 300 mg PO TID 05/09/20 [History Last Taken Unknown] baclofen 20 mg tablet 20 mg PO 4X/DAY #360 tabs 10/17/20 [Rx Last Taken Unknown] meloxicam 15 mg tablet 15 mg PO DAILY #30 tabs 10/17/20 [Rx Last Taken Unknown] tizanidine 4 mg tablet 2 mg PO TID PRN muscle spasticity #45 tabs 10/17/20 [Rx Last Taken Unknown] fingolimod 0.5 mg capsule ([employer]) 0.5 mg PO .COMPLEX #10 caps 05/14/21 [Rx Last Taken Unknown] duloxetine 60 mg capsule,delayed release 60 mg PO BID #180 caps 06/30/21 [Rx Last Taken Unknown] Allergy/AdvReac Type Severity Reaction Status Date / Time ampicillin [From Unasyn] Allergy Severe Rash Verified 10/17/20 14:01 sulbactam [From Unasyn] Allergy Severe Rash Verified 10/17/20 14:01 ciprofloxacin [From Cipro] Allergy Hives Verified 10/17/20 14:01 ciprofloxacin HCl Allergy Hives Verified 10/17/20 14:01 [From Cipro] clindamycin HCl Allergy Hives Verified 10/17/20 14:01 [From Cleocin] clindamycin palmitate HCl Allergy Hives Verified 10/17/20 14:01 [From Cleocin] clindamycin phosphate Allergy Hives Verified 10/17/20 14:01 [From Cleocin] morphine Allergy Hives Verified 10/17/20 14:01 sulfamethoxazole Allergy Hives Verified 07/05/21 18:17 [From Bactrim] trimethoprim [From Bactrim] Allergy Hives Verified 07/05/21 18:17 hydromorphone HCl AdvReac messes Verified 10/17/20 14:01 [From Dilaudid] with my brain Family History (Updated 12/03/21 @ 15:[address] Chastity Edmond MD) Unknown Multiple sclerosis 1st cousin Father Cancer school psychological examiner, black lung, Lung CA. Mother Heart disease Diabetes Heart failure Surgical History H/O hernia repair History of cholecystectomy Social History (Updated 12/03/21 @ 15:[address] Chastity Edmond MD) household members: spouse Smoking Status: Never smoker alcohol intake: never substance use type: does not use ROS ROS Narrative Admission Review of Systems: CONSTITUTIONAL: No weight loss, fever, chills, + weakness or fatigue. HEENT: Eyes: No visual loss, blurred vision, double vision or yellow sclerae. Ears, Nose, Throat: No hearing loss, sneezing, congestion, runny nose or sore throat. SKIN: No rash or itching, lesions, wounds. CARDIOVASCULAR: No chest pain, chest pressure or chest discomfort, palpitations, edema, orthopnea, syncopal events. RESPIRATORY: No shortness of breath, cough or sputum, wheezing, hemoptysis. GASTROINTESTINAL: No anorexia, nausea, vomiting or diarrhea, abdominal pain, melena, BRBPR. GENITOURINARY: + Chronic Valenzuela, recent foul-smelling urine, cloudy. NEUROLOGICAL: + Chronic bedbound status, chronic bilateral lower extremity weakness with underlying MS. No headache, dizziness, syncope, ataxia, numbness or tingling in the extremities, change in bowel or bladder control, seizure. MUSCULOSKELETAL: + muscle, back pain, joint pain or stiffness. HEMATOLOGIC: No anemia, bleeding or bruising. LYMPHATICS: No enlarged nodes. No history of splenectomy. PSYCHIATRIC: + history of depression or anxiety. ENDOCRINOLOGIC: No reports of sweating, cold or heat intolerance. No polyuria or polydipsia. ALLERGIES: + history of hives. Vital Signs Vital Signs Vital Signs: 12/03/21 12:59 Temperature 98.3 F Temperature Source Oral Pulse Rate 85 Respiratory Rate 16 Blood Pressure 124/84 H Blood Pressure Mean 97 Pulse Ox 96 Oxygen Delivery Method Room Air Weight Weight: 210 lb 12.191 oz Body Mass Index (BMI) 44.0 Physical Exam Narrative Physical Examination: General: Awake, alert, oriented x 3 and cooperative, seated upright in the ED bed in no apparent distress, fatigued appearing. Skin: Normal color, normal turgor, no icterus, no cyanosis except chronic skin changes bilateral lower extremities with dermatitis. HEENT: AT/NC, EOMI, PERRLA, MMM, no carotid bruits or JVD noted; however thickened neck makes evaluation difficult. Lungs: Distant, diminished, greater bases, poor effort, no rales, ronchi or wheezing. Heart: Regular rate and rhythm; no gallop, rub audible. Abdomen: Soft, morbidly obese, NTTP, ND but difficult assessment given morbid obesity, distant normal bowel sounds, no obvious HSM; however, habitus makes evaluation difficult. Extremities: No cyanosis, no clubbing, bilateral lower extremity chronic lymphedema, see skin. Neurological: Patient awake, alert, oriented as noted, cognitive function intact; pupils equally reactive to light and accommodation, cranial nerves II- XII grossly normal, moving all 4 extremities except limited to bilateral lower extremity movement of her feet as she has chronic debility and is wheelchair- bound/bedbound unable to use both lower extremities secondary to underlying MS, strength accordingly moderately to severely globally decreased. Psychiatric: Affect appears fatigued otherwise normal, no acute evidence of depressive or anxiety feelings. Results Lab / Micro Data Result Diagrams: 12/03/21 13:51 12/03/21 13:51 Labs: Laboratory Results - last 24 hr 12/03/21 13:30: Urine Color Yellow, Urine Clarity Sl. Cloudy, Urine pH 7.0, Ur Specific [place] 1.010, Urine Protein 100 H, Urine Glucose (UA) Normal, Urine Ketones Negative, Urine Occult Blood 250 H, Urine Nitrite Negative, Urine Bilirubin Negative, Urine Urobilinogen Normal, Ur Leukocyte Esterase 500 H, Urine RBC > 100 SEEN, Urine WBC 50-100 SEEN, Ur Squamous Epith Cells 0 SEEN, Urine Bacteria 4+, Urine Mucus 0 SEEN 12/03/21 13:51: WBC 6.6, RBC 4.67, Hgb 14.7, Hct 42.5, MCV 91.0, MCH 31.5, MCHC 34.6, RDW Std Deviation 47.4 H, RDW Coeff of Mele 14.1, Plt Count 271, MPV 9.6, Immature Gran % (Auto) 0.500, Neut % (Auto) 73.9 H, Lymph % (Auto) 13.6 L, [place] % (Auto) 7.4, Eos % (Auto) 3.5, Baso % (Auto) 1.1 H, Absolute Neuts (auto) 4.9, Absolute Lymphs (auto) 0.90, Nucleated RBC % 0 12/03/21 13:51: Sodium 137, Potassium 3.4 L, Chloride 99, Carbon Dioxide 31.0, Anion Gap 7, BUN 16, Creatinine 0.85, Estim Creat Clear Calc 107.55, Est GFR (MDRD) Af Amer 88, Est GFR (MDRD) Non-Af 73, BUN/Creatinine Ratio 18.8, Glucose 202 H, Calcium 9.3 Assessment & Plan Assessment/Plan (1) Complicated UTI (urinary tract infection): (2) MDRO (multiple drug resistant organisms) resistance: PLAN: Plan The patient is a 61 y/o F w/ PMHx: Hypothyroidism, HLD, Morbid Obesity, Depression and Anxiety, Chronic BL LE Lymphedema, Diabetes mellitus type II with neuropathy, Multiple Sclerosis with chronic bedbound status with NWB to BL LE who presents to the [facility] ED on 12/03/21 with history of onset on approximately 11/27/21 foul-smelling urine as well as increased urinary cloudiness which has been similar to her presentation in the past as she is a chronic indwelling Valenzuela for urinary tract infection with last Valenzuela change per her report by home health care nurse on potentially 11/25/21 or 04/28/21 prompting PCP evaluation and urine culture 11/28/2021 with resulting multi organism drug-resistant Proteus and Pseudomonas complicated UTI requiring IV antibiotic therapy prompting PCP referral of patient to the ED for IV antibiotics. #1. Acute Complicated multi organism drug-resistant Proteus and Pseudomonas UTI with chronic indwelling Valenzuela catheter: Will admit to medical surgical floor given patient possibility of acute infection and not just chronic colonization given recent foul urine and cloudy urine which is not normal for her baseline, per review of cultures and speciation/sensitivities will place on cefepime however will involve infectious disease to assure they do not believe this is colonization, discussed with ED nursing staff and Valenzuela catheter will be changed, PT/OT/case management consultation for discharge planning. #2. Multiple sclerosis with chronic bilateral lower extremity weakness, be dbound/nonweightbearing to bilateral lower extremity: We will maintain on fall precautions, PT/OT/case management consultation for discharge planning, will continue as needed tizanidine for muscle spasticity, fingolimid as well as baclofen home regimen #3. Diabetes mellitus type II with neuropathy: Hold oral home regimen, continue home insulin regimen, ADA diet, accu checks w/ ISS, continue patient home gabapentin regimen. #4. Anxiety and depression: We will continue patient home duloxetine regimen. #5. Hypothyroidism: We will continue patient home levothyroxine regimen. #6. Hyperlipidemia: We will continue patient on statin therapy. #7. Morbid Obesity: Weight loss and lifestyle changes encouraged. #8. Chronic bilateral lower extremity lymphedema: We will place not Spencer wraps with elevation. #9. DVT prophylaxis: SCDs, Lovenox. #10. CODE status: Patient HCPOA and living will are not set up but she notes interest therefore recommended she discuss these items with case jayde tejeda/social work for information on initiation. Discussed CODE status at length including difference between FULL code, DNR-CCA and DNR-CC status. Following discussions about the differences in these status, requested Full Code status. Advanced Care Planning Face to Face Time: 16 minutes. Charges/Coding Visit Charges Inpatient E&M: 38215 Init Hosp L3 Procedures Hospitalists Procedures: 27117 Advncd Care Plan 30 Min
[2021-12-03] MEDS: Nystatin Powder 15gm Bottle 1 APPLIC TOPICAL (17:00)
[2021-12-03] MEDS: Menthol/Lanolin/Calamine/Znox 113 GM Tube 1 APPLIC TOPICAL ×2 (17:01→22:47)
[2021-12-03] MEDS: Potassium Chloride Oral Tablet 20 MEQ 40 MEQ PO (17:08)
[2021-12-03] MEDS: Insulin Lispro 100 UNIT/ML INSULN.PEN SC ×2 (17:09→22:47)
[2021-12-03] MEDS: Baclofen 10 MG Tablet 20 MG PO (17:11)
--- NOTE | 2021-12-03 17:16 | NURSING ---
time spent with patient approx. 1hr.
[2021-12-03 17:35] LABS: Bedside Glucose 178 mg/dL (74-106)
[2021-12-03] MEDS: Pregabalin 75 MG Capsule PO (22:45)
[2021-12-03] MEDS: Atorvastatin Calcium 80 MG Tablet PO (22:45)
[2021-12-03] MEDS: DULoxetine Hcl 60 MG Capsule PO (22:45)
[2021-12-03] MEDS: Furosemide 40 MG Tablet PO (22:45)
[2021-12-03] MEDS: Enoxaparin 40 MG/0.4 ML Syringe SC (22:46)
[2021-12-03] MEDS: Insulin Glargine-YFGN 100 UNIT/ML Pen 80 UNIT SC (22:46)
[2021-12-03 23:30] LABS: Bedside Glucose 189 mg/dL (74-106)
[2021-12-04] VITALS (7 sets, daily range): BP systolic 97–109; BP diastolic 69–74; PULSE 86–91; RESP 16; TEMP 36.8–37; O2SAT 94–99
[2021-12-04 05:32] LABS: Absolute Lymphocyte Count 1.18 X10^3/uL (0.83-4.51); Absolute Neutrophil Count 5.8 X10^3/uL (2.0-7.7); Basophil# 0.07 X10^3/uL; Basophil% 0.9 % (0-1); Eosinophil# 0.32 X10^3/uL; Hematocrit 41.5 % (37-47); Hemoglobin 13.7 g/dL (12.0-15.0); Lymphocyte # 1.18 X10^3/ul (0.83-4.51); Lymphocyte % 14.6 % (19-41); Mean Corpuscular Hgb 30.2 pg (27.0-32.0); Mean Corpuscular Volume 91.6 fL (81-99); Monocyte# 0.68 X10^3/uL; Monocyte% 8.4 % (0-10); NRBC Flagged by Analyzer 0 % (0-5); Neutrophil % 71.6 % (47-70); Platelet Count 299 K/mm3 (150-450); RBC Distribution Width CV 14.1 % (11.6-14.6); RBC Distribution Width SD 47.8 fl (35.1-43.9); Red Blood Count 4.53 M/mm3 (4.2-5.4); White Blood Count 8.1 K/mm3 (4.4-11.0)
[2021-12-04 06:05] LABS: ALB/GLOB Ratio 0.7 RATIO (0.9-2.4); AST(SGOT) 33 U/L (15-37); Alanine Aminotransfer ALT/SGPT 21 U/L (13-56); Albumin, Serum 2.6 g/dL (3.2-5.0); Alkaline Phosphatase 86 U/L (45-117); Anion Gap 7 (5-15); BUN 17 mg/dL (7-18); BUN/Creat Ratio 23.5 RATIO (10-20); Calcium,Total 8.9 mg/dL (8.5-10.1); Chloride 103 mmol/L (98-107); Creatinine, Serum 0.72 mg/dL (0.55-1.02); EST Glomerular Filtration Rate 88 mL/min (>60); Est Glom Filt Rate - Afr Amer 106 mL/min (>60); Estimated Creatinine Clearance 121.52 ml/min; Globulin 3.8 g/dL (2.2-4.2); Glucose 65 mg/dL (74-106); Potassium 3.4 mmol/L (3.5-5.1); Protein, Total 6.4 g/dL (6.4-8.2); Sodium Level 139 mmol/L (136-145)
[2021-12-04] MEDS: Nystatin Powder 15gm Bottle 1 APPLIC TOPICAL ×2 (06:29→14:25)
[2021-12-04] MEDS: Levothyroxine 50 MCG Tablet PO (06:31)
[2021-12-04 06:55] LABS: Bedside Glucose 75 mg/dL (74-106)
--- NOTE | 2021-12-04 07:53 | PCM.PN.HOSP ---
Subjective Subjective Patient is a 61-year-old lady with history of multiple sclerosis with a chronic indwelling Valenzuela catheter through the emergency department complicated UTI Objective Data Objective Data Vital Signs: Vital Signs Temp Pulse Resp BP Pulse Ox O2 Del Method 98.2 F 91 16 99/69 95 Room Air 12/04/21 04:58 12/04/21 04:58 12/04/21 04:58 12/04/21 04:58 12/04/21 04:58 12/04/21 04:58 Oxygen Delivery Method Room Air Weight: 92.3 kg Body Mass Index (BMI) 42.1 Intake & Output: Intake and Output for Last 24 Hours 12/02/21 12/03/21 12/04/21 23:59 23:59 23:59 Intake Total 200 / 200 300 / 300 Output Total 100 / 100 850 / 850 Balance 100 / 100 -550 / -550 Lab / Micro Data Result Diagrams: 12/04/21 05:00 12/04/21 05:00 Labs: Laboratory Results - last 24 hr 12/03/21 13:30: Urine Color Yellow, Urine Clarity Sl. Cloudy, Urine pH 7.0, Ur Specific [place] 1.010, Urine Protein 100 H, Urine Glucose (UA) Normal, Urine Ketones Negative, Urine Occult Blood 250 H, Urine Nitrite Negative, Urine Bilirubin Negative, Urine Urobilinogen Normal, Ur Leukocyte Esterase 500 H, Urine RBC > 100 SEEN, Urine WBC 50-100 SEEN, Ur Squamous Epith Cells 0 SEEN, Urine Bacteria 4+, Urine Mucus 0 SEEN 12/03/21 13:51: WBC 6.6, RBC 4.67, Hgb 14.7, Hct 42.5, MCV 91.0, MCH 31.5, MCHC 34.6, RDW Std Deviation 47.4 H, RDW Coeff of Mele 14.1, Plt Count 271, MPV 9.6, Immature Gran % (Auto) 0.500, Neut % (Auto) 73.9 H, Lymph % (Auto) 13.6 L, [place] % (Auto) 7.4, Eos % (Auto) 3.5, Baso % (Auto) 1.1 H, Absolute Neuts (auto) 4.9, Absolute Lymphs (auto) 0.90, Nucleated RBC % 0 12/03/21 13:51: Sodium 137, Potassium 3.4 L, Chloride 99, Carbon Dioxide 31.0, Anion Gap 7, BUN 16, Creatinine 0.85, Estim Creat Clear Calc 107.55, Est GFR (MDRD) Af Amer 88, Est GFR (MDRD) Non-Af 73, BUN/Creatinine Ratio 18.8, Glucose 202 H, Calcium 9.3 12/03/21 17:08: POC Glucose 178 H 12/03/21 22:33: POC Glucose 189 H 12/04/21 05:00: WBC 8.1, RBC 4.53, Hgb 13.7, Hct 41.5, MCV 91.6, MCH 30.2, MCHC 33.0, RDW Std Deviation 47.8 H, RDW Coeff of Mele 14.1, Plt Count 299, MPV 10.0, Immature Gran % (Auto) 0.500, Neut % (Auto) 71.6 H, Lymph % (Auto) 14.6 L, [place] % (Auto) 8.4, Eos % (Auto) 4.0, Baso % (Auto) 0.9, Absolute Neuts (auto) 5.8, Absolute Lymphs (auto) 1.18, Nucleated RBC % 0 12/04/21 05:00: Sodium 139, Potassium 3.4 L, Chloride 103, Carbon Dioxide 29.0, Anion Gap 7, BUN 17, Creatinine 0.72, Estim Creat Clear Calc 121.52, Est GFR (MDRD) Af Amer 106, Est GFR (MDRD) Non-Af 88, BUN/Creatinine Ratio 23.5 H, Glucose 65 L, Calcium 8.9, Total Bilirubin 0.50, AST 33, ALT 21, Alkaline Phosphatase 86, Total Protein 6.4, Albumin 2.6 L, Globulin 3.8, Albumin/Globulin Ratio 0.7 L 12/04/21 06:34: POC Glucose 75 Physical Exam Narrative GENERAL: cooperative HEENT: Atraumatic; normocephalic EYES; Anicteric, Normal Conjunctiva NECK; supple, normal thyroid, RESPIRATORY: Diminished to auscultation CARDIOVASCULAR: Regular S1 S2, GI: soft, normoactive bowel sounds, : No Renal angle tenderness; EXTREMITIES: Bipedal edema, no clubbing, MUSCULOSKELETAL: no muscle wasting NEURO: Awake; no lateralizing signs. SKIN: No Rash PSYCH; Flat affect Assessment & Plan Assessment/Plan (1) Complicated UTI (urinary tract infection): (2) MDRO (multiple drug resistant organisms) resistance: PLAN: Plan Patient is a 61-year-old lady with history of multiple sclerosis with a chronic indwelling Valenzuela catheter through the emergency department complicated UTI 1. Acute complicated UTI secondary to chronic indwelling Valenzuela catheter with multidrug-resistant organisms Proteus and Pseudomonas UTI ? Patient admitted to regular nursing floor started on broad-spectrum antibiotic therapy?cefepime based on sensitivities cultures. Consult was placed to ID on admission 2. Multiple sclerosis with chronic bilateral lower extremity weakness. Patient is bedbound. Due to consult was placed PT and OT and social media assistant to assist with discharge planning 3. Diabetes mellitus type II complications including peripheral neuropathy -patient's oral hypoglycemics held. Placed on long acting insulin, Accu-Cheks a.c. and at bedtime and covered with sliding scale insulin 4. Dyslipidemia -Patient is on statin therapy, continued at home dose 5. Hypothyroidism - Patient is on levothyroxine home dose continued 6. Depression with anxiety ? Patient is on duloxetine did continue 7. Class III obesity with BMI of 42.5 ? Patient multiple sclerosis complicates effort regarding weight loss 8. DVT prophylaxis ? SC Lovenox Charges/Coding Visit Charges Inpatient E&M: 72640 Subs Hosp L2
[2021-12-04] MEDS: Glucerna Shake 120 ML LIQUID PO ×3 (09:34→17:55)
[2021-12-04] MEDS: Pregabalin 75 MG Capsule PO (09:35)
[2021-12-04] MEDS: Furosemide 80 MG Tablet PO (09:35)
[2021-12-04] MEDS: Pantoprazole Sodium 40 MG Tablet PO (09:35)
[2021-12-04] MEDS: Enoxaparin 40 MG/0.4 ML Syringe SC (09:35)
[2021-12-04] MEDS: DULoxetine Hcl 60 MG Capsule PO (09:36)
[2021-12-04] MEDS: Menthol/Lanolin/Calamine/Znox 113 GM Tube 1 APPLIC TOPICAL ×2 (09:36→14:24)
--- NOTE | 2021-12-04 09:50 | CASEMGMT ---
Addendum entered by Shaista Elder 12/04/21 15:28: Received notification that [facility] cannot reach pt. TRUNG NICHOLSON in to pt room, provided with telephone number and extension to call [facility] so med can be delivered tonight. Pt is aware med is covered at 100%. Addendum entered by Shaista Elder 12/04/21 15:15: [facility] will have meds delivered this evening. Covered 100%. Addendum entered by Shaista Elder 12/04/21 14:19: Refaxed rx to [facility]. [facility] and sent to [facility]. Addendum entered by Shaista Elder 12/04/21 10:57: Received tc back from [facility], they will plan YOAN for 7am. Faxed rx to [facility]. Addendum entered by Shaista Elder 12/04/21 10:32: Received call from RN at [facility] who states concerns of pt being able to perform IV antibiotics as they are not sure he is properly caring for her catheter. Also there are questions of pt aide which is her dtr doing what is supposed to be done. Questioned if pt can go to [facility] TCU. Made aware TCU does not accept pt insurance and SNF was not explored with patient as she has [facility] and no concerns of not having a cg. TRUNG NICHOLSON in to pt room. Asked how often pt is flushing her catheter at home and if it was being done. She states it is being done between 8-9:30am and 4-7:30pm. She states her is doing this. Asked if pt dtr is doing her duties as she should. She states that she is doing the housekeeping tasks but not the bathing tasks because the patient does not like to be touched. She states this is not due to her dtr being family. States that is no concern, just that she chooses not to bathe. Discussed the importance of cleanliness. Pt called her and put him on speaker, asked him the same questions and he confirmed what the patient stated as far as flushing the catheter. He is aware to clean insertion site daily or as ordered. States he is emptying the catheter and doing proper care. Discussed the IV and added care as far as the frequency. Pt states he can do this. States he will be timely on doses and discussed importance of this. Pt states he is willing and able and is with the pt 24 hours/day. Pt and both adamantly deny pt going to a SNF. TC back to Najma at [facility] to make aware of the above. Referral sent to [facility] for infusion. Original Note: TRUNG NICHOLSON Assessment: Face to Face with pt for initial transition planning/care coordination assessment. TRUNG NICHOLSON introduced self and role at [facility], pt voices understanding and consents to assessment. Pt is A/O x4 and answers all questions appropriately at this time. Pt friend in the room and pt agreeable to complete assessment with her present. Care providers, pharmacy, and demographics verified/updated. Admitting Dx: MDRO UTI PCP:Delio and ketan King of [facility] Specialists:Denies Preferred Pharmacy: [facility] Insurance: [facility] Prescription Benefit: yes LW/HPOA: Pt denies having a LW/DPOA and denies need for info regarding AD. She states she needs to talk to her son and dtr first before completing documents. LNOK: Jm Pinto, ; Steven Alcocer, son Living Arrangements: Pt lives with in a two story house with her main living quarters on the first level. Pt reports she has a lift that lifts her onto her porch. Pt states her dtr and bathe and dress her and dtr does housekeeping tasks. Pt receives meals delivered by [employer]. Transportation: Pt uses transportation services through [facility]. DME/HHC/SNF: Pt has a FWW but does not ambulate, she has 2 power w/c, ye lift, BSC and grab bars in the bathroom. Pt has [facility] for SN and an aide from [facility]. Pt has been to [facility] in the past. Pt states no concerns with going home at time of dc. She is aware that she needs IV atb. Pt states she wants her HHC to continue and her is willing to learn the IV's as she has had these in the past. Provided pt with a lis of in network [facility], pt chose [facility]. Message to ID to start HHC in the morning for IV dose. Pt to dc after 3pm dose today. Pt states no further concerns/needs. CM to follow. Advised pt to ask CM if any further question/concerns/needs arise, voices understanding. Pt Goal: Home with [facility] and learning IV infusion Plan: Home with [facility] and learning IV infusion
--- NOTE | 2021-12-04 10:00 | DS.PCM_ITS ---
Providers Date of Admission: 12/03/21 Date of Discharge: 12/04/21 Primary Care Physician: Dr. Shar Kebede MD Consultations 12/03/21 15:49 Consult: Infectious Disease Routine Consulting Provider: Robbie Vicente Reason for Consult: MDRO UTI, chronic neal, ? 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 Acute complicated UTI secondary to chronic indwelling Neal catheter with multidrug-resistant organisms Proteus and Pseudomonas UTI ? Patient admitted to regular nursing floor started on broad-spectrum antibiotic therapy?cefepime based on sensitivities cultures. Consult was placed to ID on admission ?patient was seen in consultation by Dr. Vicente recommended for placement of PICC line. He did write for cefepime for for total of 7 days. Patient was discharged home with home health 2. Multiple sclerosis with chronic bilateral lower extremity weakness. Patient is bedbound. Due to consult was placed PT and OT and health and social care teacher to assist with discharge planning 3. Diabetes mellitus type II complications including peripheral neuropathy -patient's oral hypoglycemics held. Placed on long acting insulin, Accu-Cheks a.c. and at bedtime and covered with sliding scale insulin 4. Dyslipidemia -Patient is on statin therapy, continued at home dose 5. Hypothyroidism - Patient is on levothyroxine home dose continued 6. Depression with anxiety ? Patient is on duloxetine did continue 7. Class III obesity with BMI of 42.5 ? Patient multiple sclerosis complicates effort regarding weight loss 8. DVT prophylaxis ? SC Lovenox Medications at Discharge Home Medications rosuvastatin 40 mg tablet 40 mg PO DAILY cholesterol 03/07/13 glimepiride 4 mg tablet 4 mg PO BID DM 12/21/19 levothyroxine 50 mcg tablet (Synthroid) 50 mcg PO DAILY thyroid 12/21/19 tizanidine 4 mg tablet 2 mg PO TID PRN muscle spasticity #45 tabs 10/17/20 duloxetine 60 mg capsule,delayed release 60 mg PO BID #180 caps 06/30/21 atorvastatin 80 mg tablet 80 mg PO DAILY cholesterol 12/03/21 esomeprazole magnesium 40 mg capsule,delayed release 40 mg PO DAILY stomach 12/03/21 furosemide 40 mg tablet 40 mg PO QHS fluid 12/03/21 furosemide 40 mg tablet 80 mg PO BREAKFAST fluid 12/03/21 insulin degludec 200 unit/mL (3 mL) subcutaneous pen (Tresiba FlexTouch U-200 insulin) 80 unit subcut QHS dm 12/03/21 metformin 1,000 mg tablet 1,000 mg PO BID DM 12/03/21 nitrofurantoin monohydrate/macrocrystals 100 mg capsule 100 mg PO BID UTI 12/03/21 oxycodone-acetaminophen 5 mg-325 mg tablet 1 tab PO TID PRN MS 12/03/21 pregabalin 75 mg capsule 75 mg PO BID pain 12/03/21 semaglutide 1 mg/dose (4 mg/3 mL) subcutaneous pen injector (Ozempic) 1 mg subcut QWEEK dm 12/03/21 cefepime 2 gram solution for injection 2 g IV Q8 7 days #21 ea 12/04/21 Hospital Course Summary of Care Provided Minutes Spent on Discharge: 40 Physical Exam Narrative GENERAL: cooperative HEENT: Atraumatic; normocephalic EYES; Anicteric, Normal Conjunctiva NECK; supple, normal thyroid, RESPIRATORY: Diminished to auscultation CARDIOVASCULAR: Regular S1 S2, GI: soft, normoactive bowel sounds, : No Renal angle tenderness; EXTREMITIES: Bipedal edema, no clubbing, MUSCULOSKELETAL: no muscle wasting NEURO: Awake; no lateralizing signs. SKIN: No Rash PSYCH; Flat affect Weight / BMI Weight Weight: 92.3 kg Body Mass Index (BMI) 42.1 ABG / Lab / Microbiology Data Result Diagrams: 12/04/21 05:00 12/04/21 05:00 Laboratory: Laboratory Results - last 24 hr 12/03/21 13:30: Urine Color Yellow, Urine Clarity Sl. Cloudy, Urine pH 7.0, Ur Specific [place] 1.010, Urine Protein 100 H, Urine Glucose (UA) Normal, Urine Ketones Negative, Urine Occult Blood 250 H, Urine Nitrite Negative, Urine Bilirubin Negative, Urine Urobilinogen Normal, Ur Leukocyte Esterase 500 H, Urine RBC > 100 SEEN, Urine WBC 50-100 SEEN, Ur Squamous Epith Cells 0 SEEN, Urine Bacteria 4+, Urine Mucus 0 SEEN 12/03/21 13:51: WBC 6.6, RBC 4.67, Hgb 14.7, Hct 42.5, MCV 91.0, MCH 31.5, MCHC 34.6, RDW Std Deviation 47.4 H, RDW Coeff of Mele 14.1, Plt Count 271, MPV 9.6, Immature Gran % (Auto) 0.500, Neut % (Auto) 73.9 H, Lymph % (Auto) 13.6 L, [place] % (Auto) 7.4, Eos % (Auto) 3.5, Baso % (Auto) 1.1 H, Absolute Neuts (auto) 4.9, Absolute Lymphs (auto) 0.90, Nucleated RBC % 0 12/03/21 13:51: Sodium 137, Potassium 3.4 L, Chloride 99, Carbon Dioxide 31.0, Anion Gap 7, BUN 16, Creatinine 0.85, Estim Creat Clear Calc 107.55, Est GFR (MDRD) Af Amer 88, Est GFR (MDRD) Non-Af 73, BUN/Creatinine Ratio 18.8, Glucose 202 H, Calcium 9.3 12/03/21 17:08: POC Glucose 178 H 12/03/21 22:33: POC Glucose 189 H 12/04/21 05:00: WBC 8.1, RBC 4.53, Hgb 13.7, Hct 41.5, MCV 91.6, MCH 30.2, MCHC 33.0, RDW Std Deviation 47.8 H, RDW Coeff of Mele 14.1, Plt Count 299, MPV 10.0, Immature Gran % (Auto) 0.500, Neut % (Auto) 71.6 H, Lymph % (Auto) 14.6 L, [place] % (Auto) 8.4, Eos % (Auto) 4.0, Baso % (Auto) 0.9, Absolute Neuts (auto) 5.8, Absolute Lymphs (auto) 1.18, Nucleated RBC % 0 12/04/21 05:00: Sodium 139, Potassium 3.4 L, Chloride 103, Carbon Dioxide 29.0, Anion Gap 7, BUN 17, Creatinine 0.72, Estim Creat Clear Calc 121.52, Est GFR (MDRD) Af Amer 106, Est GFR (MDRD) Non-Af 88, BUN/Creatinine Ratio 23.5 H, Glucose 65 L, Calcium 8.9, Total Bilirubin 0.50, AST 33, ALT 21, Alkaline Phosphatase 86, Total Protein 6.4, Albumin 2.6 L, Globulin 3.8, Albumin/Globulin Ratio 0.7 L 12/04/21 06:34: POC Glucose 75 D/C Instructions Discharge Diet: 1800 Calorie Control Diet Discharge Activity: Return to Normal Activity Call your doctor if you observe: Fever of 101 or Higher, Shortness of breath, Fainting spells and Chest pain Meaningful Use Info Meaningful Use Diagnoses (Choose all that apply): None applicable Discharge Plan Admission Admit Date/Time: 12/03/21 15:11 Attending Provider: Ahsan Iverson Primary Care Provider: Shar Kebede Chi Consulting Providers: Robbie Vicente ; Chastity Edmond Discharge Orders/Prescriptions Prescriptions: New cefepime 2 gram Recon Soln 2 g IV Q8 7 Days Qty: 21 0RF Rx Instructions: Dx: Pseudomonas uti weekly bmp and cbc. Fax to [phone] routine midline care with heparin/saline flush per protocol Continued levothyroxine [Synthroid] 50 mcg tablet 50 mcg PO DAILY glimepiride 4 mg tablet 4 mg PO BID tizanidine 4 mg tablet 2 mg PO TID PRN (Reason: muscle spasticity) Qty: 45 3RF rosuvastatin 40 MG tablet 40 mg PO DAILY Label Comments: Cholesterol furosemide 40 mg tablet 80 mg PO BREAKFAST Label Comments: TAKE 2 TABLETS EVERY MORNING and 1 IN THE EVENING furosemide 40 mg tablet 40 mg PO QHS Label Comments: TAKE 2 TABLETS EVERY MORNING and 1 IN THE EVENING atorvastatin 80 mg tablet 80 mg PO DAILY Label Comments: TAKE 1 TABLET BY MOUTH DAILY oxycodone-acetaminophen 5-325 mg tablet 1 tab PO TID PRN (Reason: MS ) Label Comments: Take one (1) tablet by mouth three times a day, as needed for multiple sclerosis contractures PALLIATIVE PATIENT metformin 1,000 mg tablet 1,000 mg PO BID Label Comments: TAKE 1 TABLET TWICE DAILY esomeprazole magnesium 40 mg capsule,delayed release(DR/EC) 40 mg PO DAILY Label Comments: TAKE 1 CAPSULE EVERY DAY nitrofurantoin monohyd/m-cryst 100 mg capsule 100 mg PO BID Label Comments: Take 1 Capsule Oral every 12 hours with food Rx Instructions: take every 12 hours with food pregabalin 75 mg capsule 75 mg PO BID Label Comments: Take 1 capsule by mouth twice a day Palliative patient insulin degludec [Tresiba FlexTouch U-200] 200 unit/mL (3 mL) insulin pen 80 unit SUBCUT QHS Label Comments: Inject 80 units sub-q every night at bedtime. Ozempic 1 mg/dose (4 mg/3 mL) pen injector 1 mg SUBCUT QWEEK Label Comments: INJECT 1mg under the skin EVERY week FOR 90 DAYS duloxetine 60 mg capsule,delayed release(DR/EC) 60 mg PO BID Qty: 180 0RF Discontinued levofloxacin 250 mg tablet 250 mg PO DAILY Referrals / Follow Up: Shar Kebede Chi, MD [Primary Care Provider] - Disposition Disposition (needs filled in before D/C Order can be placed): Home Health Service Charges/Coding Visit Charges Inpatient E&M: 68167 Disch Hosp
--- NOTE | 2021-12-04 10:34 | PCM.CONS.GEN ---
Assessment & Plan Assessment/Plan (1) Complicated UTI (urinary tract infection): PLAN: Ucx with proteus and pseudomonas. Will order midline and 7 day course cefepime with weekly lab. Thank you, will follow, d/w casey saw operator (2) Multiple sclerosis: HPI Consult Data Date of Consult: 12/04/21 HPI Narrative Reason for Consultation: uti HPI Narrative: MARIA D SMITH, is a 61 F with multiple sclerosis, chronic neal, presented with several days not feeling well and cloudy/foul smelling urine. No fever, no abd pain. Ucx sent a week ago, sent to hospital for IV abx. Admitted on cefepime, feeling better this AM. Full ROS performed and neg except as noted above. [facility] Medical History Anxiety Bedbound delivery delivered Depression History of multiple sclerosis Lymphedema Morbid obesity Multiple sclerosis Polyneuropathy Type II diabetes mellitus Vitamin d deficiency Home Medications rosuvastatin 40 mg tablet 40 mg PO DAILY cholesterol 03/07/13 [History Last Taken 12/02/21] glimepiride 4 mg tablet 4 mg PO BID DM 12/21/19 [History Last Taken 12/02/21] levothyroxine 50 mcg tablet (Synthroid) 50 mcg PO DAILY thyroid 12/21/19 [History Last Taken 12/02/21] tizanidine 4 mg tablet 2 mg PO TID PRN muscle spasticity #45 tabs 10/17/20 [Rx Last Taken 12/02/21] duloxetine 60 mg capsule,delayed release 60 mg PO BID #180 caps 06/30/21 [Rx Last Taken 12/02/21] atorvastatin 80 mg tablet 80 mg PO DAILY cholesterol 12/03/21 [History Last Taken 12/02/21] esomeprazole magnesium 40 mg capsule,delayed release 40 mg PO DAILY stomach 12/03/21 [History Last Taken 12/02/21] furosemide 40 mg tablet 40 mg PO QHS fluid 12/03/21 [History Last Taken 12/02/21] furosemide 40 mg tablet 80 mg PO BREAKFAST fluid 12/03/21 [History Last Taken 12/02/21] insulin degludec 200 unit/mL (3 mL) subcutaneous pen (Tresiba FlexTouch U-200 insulin) 80 unit subcut QHS dm 12/03/21 [History Last Taken 12/02/21] metformin 1,000 mg tablet 1,000 mg PO BID DM 12/03/21 [History Last Taken 12/02/21] nitrofurantoin monohydrate/macrocrystals 100 mg capsule 100 mg PO BID UTI 12/03/21 [History Last Taken 12/02/21] oxycodone-acetaminophen 5 mg-325 mg tablet 1 tab PO TID PRN MS 12/03/21 [History Last Taken 12/03/21] pregabalin 75 mg capsule 75 mg PO BID pain 12/03/21 [History Last Taken 12/02/21] semaglutide 1 mg/dose (4 mg/3 mL) subcutaneous pen injector (Ozempic) 1 mg subcut QWEEK dm 12/03/21 [History Last Taken 11/29/21] cefepime 2 gram solution for injection 2 g IV Q8 7 days #21 ea 12/04/21 [Rx Last Taken Unknown] Allergy/AdvReac Type Severity Reaction Status Date / Time ampicillin [From Unasyn] Allergy Severe Rash Verified 10/17/20 14:01 sulbactam [From Unasyn] Allergy Severe Rash Verified 10/17/20 14:01 ciprofloxacin [From Cipro] Allergy Hives Verified 10/17/20 14:01 ciprofloxacin HCl Allergy Hives Verified 10/17/20 14:01 [From Cipro] clindamycin HCl Allergy Hives Verified 10/17/20 14:01 [From Cleocin] clindamycin palmitate HCl Allergy Hives Verified 10/17/20 14:01 [From Cleocin] clindamycin phosphate Allergy Hives Verified 10/17/20 14:01 [From Cleocin] morphine Allergy Hives Verified 10/17/20 14:01 sulfamethoxazole Allergy Hives Verified 07/05/21 18:17 [From Bactrim] trimethoprim [From Bactrim] Allergy Hives Verified 07/05/21 18:17 hydromorphone HCl AdvReac messes Verified 10/17/20 14:01 [From Dilaudid] with my brain Family History (Updated 12/03/21 @ 15:[address] Chastity Edmond MD) Unknown Multiple sclerosis 1st cousin Father Cancer white shoe examiner, black lung, Lung CA. Mother Heart disease Diabetes Heart failure Surgical History H/O hernia repair History of cholecystectomy Social History (Updated 12/03/21 @ 15:[address] Chastity Edmond MD) household members: spouse Smoking Status: Never smoker alcohol intake: never substance use type: does not use Physical Exam Const alert and no apparent distress General Appearance: lethargic HEENT normocephalic and head/scalp atraumatic Eyes EOMs intact bilaterally Neck supple and No nodes Resp normal air movement and clear to auscultation bilaterally Cardio regular rate and regular rhythm GI non-tender, non-distended and hepatosplenomegaly Extremity General Extremity: edema Skin no rashes or lesions noted Neuro CN's II-XII intact bilaterally Lab / Micro Data Attestation: I reviewed the patient's lab results. Result Diagrams: 12/04/21 05:00 12/04/21 05:00 Labs: Laboratory Results - last 24 hr 12/03/21 13:30: Urine Color Yellow, Urine Clarity Sl. Cloudy, Urine pH 7.0, Ur Specific [place] 1.010, Urine Protein 100 H, Urine Glucose (UA) Normal, Urine Ketones Negative, Urine Occult Blood 250 H, Urine Nitrite Negative, Urine Bilirubin Negative, Urine Urobilinogen Normal, Ur Leukocyte Esterase 500 H, Urine RBC > 100 SEEN, Urine WBC 50-100 SEEN, Ur Squamous Epith Cells 0 SEEN, Urine Bacteria 4+, Urine Mucus 0 SEEN 12/03/21 13:51: WBC 6.6, RBC 4.67, Hgb 14.7, Hct 42.5, MCV 91.0, MCH 31.5, MCHC 34.6, RDW Std Deviation 47.4 H, RDW Coeff of Mele 14.1, Plt Count 271, MPV 9.6, Immature Gran % (Auto) 0.500, Neut % (Auto) 73.9 H, Lymph % (Auto) 13.6 L, [place] % (Auto) 7.4, Eos % (Auto) 3.5, Baso % (Auto) 1.1 H, Absolute Neuts (auto) 4.9, Absolute Lymphs (auto) 0.90, Nucleated RBC % 0 12/03/21 13:51: Sodium 137, Potassium 3.4 L, Chloride 99, Carbon Dioxide 31.0, Anion Gap 7, BUN 16, Creatinine 0.85, Estim Creat Clear Calc 107.55, Est GFR (MDRD) Af Amer 88, Est GFR (MDRD) Non-Af 73, BUN/Creatinine Ratio 18.8, Glucose 202 H, Calcium 9.3 12/03/21 17:08: POC Glucose 178 H 12/03/21 22:33: POC Glucose 189 H 12/04/21 05:00: WBC 8.1, RBC 4.53, Hgb 13.7, Hct 41.5, MCV 91.6, MCH 30.2, MCHC 33.0, RDW Std Deviation 47.8 H, RDW Coeff of Mele 14.1, Plt Count 299, MPV 10.0, Immature Gran % (Auto) 0.500, Neut % (Auto) 71.6 H, Lymph % (Auto) 14.6 L, [place] % (Auto) 8.4, Eos % (Auto) 4.0, Baso % (Auto) 0.9, Absolute Neuts (auto) 5.8, Absolute Lymphs (auto) 1.18, Nucleated RBC % 0 12/04/21 05:00: Sodium 139, Potassium 3.4 L, Chloride 103, Carbon Dioxide 29.0, Anion Gap 7, BUN 17, Creatinine 0.72, Estim Creat Clear Calc 121.52, Est GFR (MDRD) Af Amer 106, Est GFR (MDRD) Non-Af 88, BUN/Creatinine Ratio 23.5 H, Glucose 65 L, Calcium 8.9, Total Bilirubin 0.50, AST 33, ALT 21, Alkaline Phosphatase 86, Total Protein 6.4, Albumin 2.6 L, Globulin 3.8, Albumin/Globulin Ratio 0.7 L 12/04/21 06:34: POC Glucose 75
--- NOTE | 2021-12-04 12:12 | NURSING ---
roll filler called and nurse scheduled to be here between [id number] for midline placement.
[2021-12-04] MEDS: Insulin Lispro 100 UNIT/ML INSULN.PEN SC ×2 (12:38→17:56)
[2021-12-04 13:01] LABS: Bedside Glucose 166 mg/dL (74-106)
[2021-12-04] MEDS: FLU VACC QS2022-23(6MOS UP)/PF 60 MCG/0.5 ML SYRINGE IM (15:11)
--- NOTE | 2021-12-04 16:01 | CASEMGMT ---
Social Work SW placed call to [facility]. Pt does have services through the [employer]. manager chinese is Shana Bruno [phone]. Pt services include aids through [facility] [employer] 3 hours M thru F, [employer] 14 per week and an emergency response system. Pt returning home today and [facility] updated and discharge orders faxed. MARY ANN Ndiaye
[2021-12-04 17:45] LABS: Bedside Glucose 203 mg/dL (74-106)
== END 2021-12-04 20:45 | disposition home health service (06) | DRG 699 ==
LOC: ED 14:55 → MS3 15:52
PROVIDERS: Admitting Provider Family Medicine; Emergency Provider Student in an Organized Health Care Education/Training Program; PCP Family Medicine Geriatric Medicine; Visit Provider Internal Medicine
DX: T83.511A Infection and inflammatory reaction due to indwelling urethral catheter, initial encounter (principal); Z68.41 Body mass index [BMI] 40.0-44.9, adult; Z16.35 Resistance to multiple antimicrobial drugs; E11.42 Type 2 diabetes mellitus with diabetic polyneuropathy; E03.9 Hypothyroidism, unspecified; B96.4 Proteus (mirabilis) (morganii) as the cause of diseases classified elsewhere; B96.5 Pseudomonas (aeruginosa) (mallei) (pseudomallei) as the cause of diseases classified elsewhere; E66.01 Morbid (severe) obesity due to excess calories; G35 Multiple sclerosis; E78.5 Hyperlipidemia, unspecified; F41.9 Anxiety disorder, unspecified; I89.0 Lymphedema, not elsewhere classified; F32.A Depression, unspecified; N39.0 Urinary tract infection, site not specified; M62.81 Muscle weakness (generalized); Z74.01 Bed confinement status; Z79.2 Long term (current) use of antibiotics; Z79.84 Long term (current) use of oral hypoglycemic drugs; Z79.899 Other long term (current) drug therapy; Z23 Encounter for immunization
CPT/HCPCS: 36415; 51702; 80048; 80053; 81001; 82962; 85025; 97802; 99251; 99285; G0008; 90686; A4216; G0463

== ENCOUNTER → 2021-12-08 | Outpatient (CLI) | payer MEDICARE, MEDICAID, SELFPAY ==
[2021-12-08 18:19] LABS: Hematocrit 37.3 % (37-47); Hemoglobin 12.5 g/dL (12.0-15.0); Mean Corp Hgb Conc 33.5 g/dL (32-36); Mean Corpuscular Hgb 31.3 pg (27.0-32.0); Mean Corpuscular Volume 93.5 fL (81-99); Mean Platelet Vol. 10.6 fl (6.2-12.0); Platelet Count 285 K/mm3 (150-450); RBC Distribution Width CV 14.2 % (11.6-14.6); RBC Distribution Width SD 48.9 fl (35.1-43.9); Red Blood Count 3.99 M/mm3 (4.2-5.4); White Blood Count 5.6 K/mm3 (4.4-11.0)
[2021-12-08 18:32] LABS: Anion Gap 7 (5-15); BUN 23 mg/dL (7-18); BUN/Creat Ratio 29.4 RATIO (10-20); Calcium,Total 9.2 mg/dL (8.5-10.1); Chloride 103 mmol/L (98-107); Creatinine, Serum 0.78 mg/dL (0.55-1.02); EST Glomerular Filtration Rate 80 mL/min (>60); Est Glom Filt Rate - Afr Amer 97 mL/min (>60); Glucose 130 mg/dL (74-106); Potassium 3.5 mmol/L (3.5-5.1); Sodium Level 138 mmol/L (136-145)
[2021-12-08 23:48] LABS: Hemoglobin A1c 7.6 % (3.8-5.6)
[2021-12-08 23:54] LABS: ALB/GLOB Ratio 0.6 RATIO (0.9-2.4); AST(SGOT) 18 U/L (15-37); Alanine Aminotransfer ALT/SGPT 17 U/L (13-56); Albumin, Serum 2.3 g/dL (3.2-5.0); Alkaline Phosphatase 82 U/L (45-117); Anion Gap 8 (5-15); BUN 23 mg/dL (7-18); BUN/Creat Ratio 29.6 RATIO (10-20); Calcium,Total 9.1 mg/dL (8.5-10.1); Chloride 103 mmol/L (98-107); Cholesterol 146 mg/dL (200); Creatinine, Serum 0.78 mg/dL (0.55-1.02); EST Glomerular Filtration Rate 81 mL/min (>60); Est Glom Filt Rate - Afr Amer 98 mL/min (>60); Glucose 126 mg/dL (74-106); High Density Lipoprotein 32 mg/dL; Potassium 3.6 mmol/L (3.5-5.1); Protein, Total 6.3 g/dL (6.4-8.2); Sodium Level 136 mmol/L (136-145); Thyroid Stim Hormone (TSH) 2.55 uIU/mL (0.358-3.74); Triglycerides 171 mg/dL; Very Low Density Lipoprotein 34 mg/dL (5-40)
== END | disposition home or self-care (01) ==
PROVIDERS: PCP Family Medicine Geriatric Medicine; Visit Provider Family Medicine Geriatric Medicine
DX: E11.9 Type 2 diabetes mellitus without complications (principal); E78.5 Hyperlipidemia, unspecified; I10 Essential (primary) hypertension
CPT/HCPCS: 36415; 80048; 80053; 80061; 83036; 84443; 85027

== ENCOUNTER 2022-01-07 17:43 | Outpatient (RCR) | payer MEDICARE, MEDICAID, SELFPAY ==
[2022-01-07 18:27] LABS: Color, Urine Yellow (Yellow); Glucose, Dipstick Normal (Normal); Ketone-Dipstick Negative (Negative); Leukocyte Esterase-Dipstick 500 /ul (Negative); Nitrite-Dipstick Positive (Negative); Occult Blood-Urine 250 /ul (Negative); Protein-Dipstick 100 mg/dl (Negative); Specific Gravity, Urine 1.015 (1.002-1.030); Urine Bilirubin Dipstick Negative (Negative); Urine Clarity Cloudy (Clear); Urine Urobilinogen Normal (Normal)
== END 2022-01-28 18:00 | disposition home or self-care (01) ==
LOC: HHLAB 17:43
PROVIDERS: PCP Family Medicine Geriatric Medicine; Visit Provider Nurse Practitioner Family
DX: R33.9 Retention of urine, unspecified (principal); G35 Multiple sclerosis; Z46.6 Encounter for fitting and adjustment of urinary device
CPT/HCPCS: 81002; 87077; 87086; 87088; 87186

== ENCOUNTER → 2022-03-19 | Outpatient (CLI) | payer MEDICARE, MEDICAID, SELFPAY ==
--- NOTE | 2022-03-19 16:02 | MRI_ITS ---
STUDY: MRI THORACIC SPINE WITH AND WITHOUT CONTRAST REASON FOR EXAM: Female, 61 years old. Multiple sclerosis; increased weakness in legs TECHNIQUE: IV 18mL CLARISCAN was administered for the contrast portion of the examination. COMPARISON: None. FINDINGS: Normal kyphosis of the thoracic spine. There is no substantial scoliosis. T1-2, T2-3, T3-4, T4-5, T5-6, T6-7, T7-8, T8-9, T9-10, T10-11, T11-12: Multilevel degenerative disc disease. Normal central canal and intervertebral neural foramina at the corresponding levels. Normal visualized thoracic spinal cord. Normal conus medullaris that terminates at the . The soft tissue structures are unremarkable. There is no enhancing abnormality. MRI/Spine Thoracic W/WO Contrast IMPRESSION: No definite signal abnormality is noted in the thoracic spinal cord. Electronically Signed: Tatianna Macedo MD at 4:10 EST ,
--- NOTE | 2022-03-19 16:02 | MRI_ITS ---
INDICATION: Multiple sclerosis; increased weakness in legs EXAMINATION: MRI - MR Brain WO/W Contrast TECHNIQUE: MRI examination of the head obtained with standard protocol including multiplanar multiecho pre and post contrast imaging. IV Contrast Dosage and Agent: 18 mL clariscan COMPARISON: 01/11/2020 FINDINGS: HEMISPHERES, CEREBELLUM AND BRAINSTEM: 1. The cerebral parenchyma, ventricular system, subarachnoid spaces have normal configuration and density. There is a normal gyral pattern. There is normal helton/white differentiation. No midline shift.. 2. Again noted are focal areas of FLAIR signal hyperintensity including an ovoid area in the RIGHT centrum semiovale, subtle scattered juxtacortical lesions in the frontal lobes bilaterally. There is periventricular lesion on the RIGHT extending into the corpus callosum. Pattern and distribution are stable. No areas of fluid restriction or acute ischemic change or abnormal contrast enhancement. 3. No intraparenchymal mass, hemorrhage, or acute territorial infarct. 4. The cerebellum, brainstem, basilar and suprasellar cisterns have normal appearance. No Chiari malformation. PITUITARY: Infundibulum and pituitary have normal configuration. Midline structures appear normal. CSF SPACES: Appropriate for age. No hydrocephalus. Basal cisterns are patent. VESSELS: 1. There are normal flow voids noted in the great vessels at the skull base ORBITS AND PARANASAL SINUSES: 1. Both globes, extraocular muscles, optic nerves and retrobulbar fat appear unremarkable. 2. Paranasal sinuses are clear. BONY ELEMENTS: Bony elements of the cranial vault, facial skeleton and skull base have normal appearance. SCALP AND SOFT TISSUES: Normal appearance of the soft tissues of the scalp and the visualized face OTHER: None MRI/Brain W/WO Contrast IMPRESSION: 1. Stable exam. 2. Multiple areas of white matter signal abnormality consistent with history of demyelinating disease/MS. 3. No evidence of acute demyelinating process. 4. No mass, hemorrhage, or acute territorial infarct. No areas of abnormal contrast enhancement. Electronically Signed: Addison Daniel MD at 19:55 EST ,
--- NOTE | 2022-03-19 16:02 | MRI_ITS ---
STUDY: MRI CERVICAL SPINE REASON FOR EXAM: Female, 61 years old. Multiple sclerosis; increased weakness in legs TECHNIQUE: MRI examination cervical spine obtained with standard protocol including multiplanar multiecho pre and postcontrast imaging. Contrast: IV 18mL CLARISCAN. COMPARISON: 12/27/2017 FINDINGS: Vertebral bodies and alignment: 1. Vertebral body height and alignment are maintained. No evidence of marrow edema, fracture or subluxation. 2. Prevertebral soft tissue planes have normal appearance. 3. Normal appearance the odontoid process and alignment of the craniocervical junction. 4. Normal appearance the posterior muscular fascial planes of the cervical spine, and the posterior ligamentous support structure the cervical spine is intact. Intervertebral disc levels: C2-3: Mild disc desiccation without disc herniation or canal stenosis. Mild narrowing of the LEFT neural foramen due to facet and uncovertebral joint hypertrophic changes. C3-4: Disc desiccation, minimal disc bulge, no disc herniation or canal stenosis. Bilateral foraminal narrowing due to facet and uncovertebral joint changes. C4-5: Disc desiccation, no disc herniation or canal stenosis. Mild bilateral foraminal narrowing contributed by facet and uncovertebral joint changes. C5-6: Disc desiccation, broad-based posterior disc bulge/protrusion osteophyte complex without canal stenosis. There is mild contact with the cord, central canal is maintained at 7 mm. No evidence of acute cord compression. Bilateral foraminal narrowing is present. C6-7: Disc desiccation, broad-based central disc protrusion and osteophyte complex, deformity the anterior epidural space and cord contact noted, central canal maintained at 7 mm. Bilateral foraminal narrowing due to chronic facet and uncovertebral joint changes C7-T1: Disc desiccation, broad-based posterior disc bulge without evidence of canal stenosis. Neural foramina are widely patent. Spinal CORD: Spinal cord has normal configuration with the exception of mild cord deformity at C5 vertebral body level associated with mild cord signal abnormality consistent with chronic demyelinating plaque. No areas of associated contrast enhancement. Remaining cord has normal appearance. Normal appearance the cervical medullary junction. MRI/Spine Cervical W/WO Contrast IMPRESSION: 1. Diffuse cervical spondylosis, broad-based chronic appearing protrusion osteophyte complexes most notable at C5-6 and C6-7. Mild canal stenosis and minimal cord contact without cord compression. 2. Multilevel foraminal narrowing contributed by facet and uncovertebral joint changes. 3. Focal area of cord deformity along the posterior aspect of the cord at C5 vertebral body level, and associated with chronic appearing demyelinating plaque. No evidence of contrast enhancement or acute demyelination. Electronically Signed: Addison Daniel MD at 20:21 [facility] ,
[2022-03-19 16:56] LABS: CREATININE FINGERSTICK < 0.9 mg/dL (0.55-1.02); EGFR FINGERSTICK > 60.0000 mL/min (>60)
== END | disposition home or self-care (01) ==
LOC: MRI 16:02
PROVIDERS: PCP Family Medicine Geriatric Medicine; Visit Provider Psychiatry & Neurology Neurology
DX: G35 Multiple sclerosis (principal); M62.81 Muscle weakness (generalized)
CPT/HCPCS: 70553; 72156; 72157; A9575

== ENCOUNTER 2022-05-27 15:30 | Outpatient (RCR) | payer MEDICARE, MEDICAID, SELFPAY ==
[2022-05-27 16:23] LABS: Color, Urine Yellow (Yellow); Glucose, Dipstick Normal (Normal); Leukocyte Esterase-Dipstick 500 /ul (Negative); Nitrite-Dipstick Positive (Negative); Occult Blood-Urine 25 /ul (Negative); Protein-Dipstick 100 mg/dl (Negative); Urine Bilirubin Dipstick Negative (Negative); Urine Clarity Cloudy (Clear); Urine Urobilinogen Normal (Normal)
[2022-05-27 16:29] LABS: Ketone-Dipstick 150 mg/dl (Negative)
== END 2022-05-29 18:00 | disposition home or self-care (01) ==
LOC: HHLAB 15:30
PROVIDERS: PCP Family Medicine Geriatric Medicine; Referring Provider Nurse Practitioner Family; Visit Provider Nurse Practitioner Family
DX: R33.9 Retention of urine, unspecified (principal)
CPT/HCPCS: 81002; 87086; 87088

== ENCOUNTER 2022-06-04 17:51 | Outpatient (RCR) | payer MEDICARE, MEDICAID, SELFPAY ==
[2022-06-05 13:47] LABS: Color, Urine Yellow (Yellow); Glucose, Dipstick Normal (Normal); Ketone-Dipstick 5 mg/dl (Negative); Leukocyte Esterase-Dipstick 500 /ul (Negative); Nitrite-Dipstick Negative (Negative); Occult Blood-Urine 250 /ul (Negative); Protein-Dipstick 100 mg/dl (Negative); Specific Gravity, Urine 1.015 (1.002-1.030); Urine Clarity Cloudy (Clear); Urine Urobilinogen 1 mg/dl (Normal)
[2022-06-05 13:58] LABS: Urine Bilirubin Dipstick 1 mg/dL (Negative)
== END 2022-06-28 00:15 | disposition home or self-care (01) ==
LOC: HHLAB 17:51
PROVIDERS: PCP Family Medicine Geriatric Medicine; Visit Provider Nurse Practitioner Family
DX: R33.9 Retention of urine, unspecified (principal); G35 Multiple sclerosis; Z46.6 Encounter for fitting and adjustment of urinary device
CPT/HCPCS: 81002; 87077; 87086; 87088; 87186

== ENCOUNTER 2022-06-09 16:06 | Emergency (ER) | payer MEDICARE, MEDICAID, SELFPAY ==
[2022-06-09 16:11] VITALS: BP 102/84; PULSE 77; RESP 16; TEMP 37.1; O2SAT 96; BMI 43.2
[2022-06-09] MEDS: 0.9% Normal Saline 1,000 ML 1000 ML IV ×2 (16:52→17:54)
[2022-06-09 16:58] LABS: Mucous, Urine 0 SEEN /hpf (<or=2+); Red Blood Cells-Urine 0 SEEN /hpf (0-5); Squamous Epithelial Cells - UA 0 SEEN /hpf (5-10)
[2022-06-09 17:00] LABS: Absolute Lymphocyte Count 0.72 X10^3/uL (0.83-4.51); Absolute Neutrophil Count 12.3 X10^3/uL (2.0-7.7); Basophil# 0.04 X10^3/uL; Basophil% 0.3 % (0-1); Eosinophil# 0.07 X10^3/uL; Eosinophils% 0.5 % (0-5); Hematocrit 32.6 % (37-47); Hemoglobin 10.5 g/dL (12.0-15.0); Lymphocyte # 0.72 X10^3/ul (0.83-4.51); Lymphocyte % 5.1 % (19-41); Mean Corp Hgb Conc 32.2 g/dL (32-36); Mean Corpuscular Hgb 29.7 pg (27.0-32.0); Mean Corpuscular Volume 92.4 fL (81-99); Mean Platelet Vol. 9.3 fl (6.2-12.0); Monocyte# 0.62 X10^3/uL; Monocyte% 4.4 % (0-10); NRBC Flagged by Analyzer 0 % (0-5); Neutrophil % 87.4 % (47-70); Platelet Count 375 K/mm3 (150-450); RBC Distribution Width CV 14.8 % (11.6-14.6); RBC Distribution Width SD 50.1 fl (35.1-43.9); Red Blood Count 3.53 M/mm3 (4.2-5.4); White Blood Count 14.1 K/mm3 (4.4-11.0)
[2022-06-09 17:02] LABS: Color, Urine Yellow (Yellow); Glucose, Dipstick Normal (Normal); Ketone-Dipstick Negative (Negative); Leukocyte Esterase-Dipstick 500 /ul (Negative); Nitrite-Dipstick Positive (Negative); Occult Blood-Urine 25 /ul (Negative); Protein-Dipstick 100 mg/dl (Negative); Urine Bilirubin Dipstick Negative (Negative); Urine Clarity Sl. Cloudy (Clear); Urine Urobilinogen Normal (Normal)
[2022-06-09 17:12] LABS: Anion Gap 6 (5-15); BUN 26 mg/dL (7-18); BUN/Creat Ratio 23.9 RATIO (10-20); Chloride 92 mmol/L (98-107); Creatinine, Serum 1.09 mg/dL (0.55-1.02); EST Glomerular Filtration Rate 54 mL/min (>60); Est Glom Filt Rate - Afr Amer 66 mL/min (>60); Glucose 181 mg/dL (74-106); Potassium 3.1 mmol/L (3.5-5.1); Sodium Level 130 mmol/L (136-145)
[2022-06-09 17:23] LABS: White Blood Cells 25-50 SEEN /hpf (0-5)
[2022-06-09 17:24] LABS: Bacteria 1+ /hpf (None Seen)
[2022-06-09 17:53] VITALS: BP 95/64; PULSE 85; RESP 16; O2SAT 100
[2022-06-09] MEDS: Potassium Chloride Oral Soln 20 MEQ/15 ML UDC 40 MEQ PO (17:55)
--- NOTE | 2022-06-09 18:13 | EX.ED.DYSGE1 ---
HPI History of Present Illness Chief Complaint: Complaint Informant: patient Narrative Narrative: Patient is a very pleasant 61-year-old female who is the main historian who is presenting today secondary to urinary tract infection and ketones in her urine. Patient states that she was on a antibiotic on , different antibiotic on Wednesday, and then stopped both of her antibiotics on Wednesday. Patient currently has no headache. No chest pain shortness of breath. No abdominal pain, nausea, vomiting, or any other acute complaints. Patient states she has been eating and drinking at home okay with no difficulty. Patient states she is mainly bedridden secondary to multiple sclerosis. Patient lives at home with and child, they help take care of her at home. Patient states she has no sacral ulcers or any skin decubitus ulcerations. Patient does have an indwelling Valenzuela catheter. Patient states that she does have a procedure scheduled in a couple weeks to have a suprapubic catheter placed. Patient was told that she had urinary tract infection and was on 2 different antibiotics but stopped them on Wednesday secondary to both of them causing diarrhea. Patient had 2 different urine samples done, both of them had a high ketones and patient was told to come to the ER from her nurse practitioner that helps take care of her at her home for hydration. Patient looks well, feels well, states that she has been sick in the past secondary to urinary tract infections but does not feel that way today. [facility] Medical History (Updated 06/09/22 @ 19:[address] Steven De Los Santos DO) Anxiety Bedbound delivery delivered Depression History of multiple sclerosis Lymphedema Morbid obesity Multiple sclerosis Polyneuropathy Type II diabetes mellitus Vitamin d deficiency Home Medications rosuvastatin 40 mg tablet 40 mg PO DAILY cholesterol 03/07/13 [History Last Taken 12/02/21] glimepiride 4 mg tablet 4 mg PO BID DM 12/21/19 [History Last Taken 12/02/21] levothyroxine 50 mcg tablet (Synthroid) 50 mcg PO DAILY thyroid 12/21/19 [History Last Taken 12/02/21] duloxetine 60 mg capsule,delayed release 60 mg PO BID #180 caps 06/30/21 [Rx Last Taken 12/02/21] atorvastatin 80 mg tablet 80 mg PO DAILY cholesterol 12/03/21 [History Last Taken 12/02/21] esomeprazole magnesium 40 mg capsule,delayed release 40 mg PO DAILY stomach 12/03/21 [History Last Taken 12/02/21] furosemide 40 mg tablet 40 mg PO QHS fluid 12/03/21 [History Last Taken 12/02/21] furosemide 40 mg tablet 80 mg PO BREAKFAST fluid 12/03/21 [History Last Taken 12/02/21] insulin degludec 200 unit/mL (3 mL) subcutaneous pen (Tresiba FlexTouch U-200 insulin) 80 unit subcut QHS dm 12/03/21 [History Last Taken 12/02/21] metformin 1,000 mg tablet 1,000 mg PO BID DM 12/03/21 [History Last Taken 12/02/21] oxycodone-acetaminophen 5 mg-325 mg tablet 1 tab PO TID PRN MS 12/03/21 [History Last Taken 12/03/21] pregabalin 75 mg capsule 75 mg PO BID pain 12/03/21 [History Last Taken 12/02/21] semaglutide 1 mg/dose (4 mg/3 mL) subcutaneous pen injector (Ozempic) 1 mg subcut QWEEK dm 12/03/21 [History Last Taken 11/29/21] baclofen 10 mg tablet 10 mg PO DAILY #30 tabs 02/04/22 [Rx Last Taken Unknown] buspirone 5 mg tablet 5 mg PO BID #60 tabs 02/04/22 [Rx Last Taken Unknown] cholecalciferol (vitamin D3) 25 mcg (1,000 unit) tablet (Vitamin D3) 25 mcg PO BID 02/04/22 [History Last Taken Unknown] amoxicillin 875 mg-potassium clavulanate 125 mg tablet 875 mg PO Q12H #20 TABLETS 06/09/22 [Rx Last Taken Unknown] ondansetron 4 mg disintegrating tablet 4 mg PO Q4H PRN PRN Nausea #10 tabs 06/09/22 [Rx Last Taken Unknown] Allergy/AdvReac Type Severity Reaction Status Date / Time ampicillin [From Unasyn] Allergy Severe Rash Verified 02/04/22 12:02 sulbactam [From Unasyn] Allergy Severe Rash Verified 02/04/22 12:02 ciprofloxacin [From Cipro] Allergy Hives Verified 02/04/22 12:02 ciprofloxacin HCl Allergy Hives Verified 02/04/22 12:02 [From Cipro] clindamycin HCl Allergy Hives Verified 02/04/22 12:02 [From Cleocin] clindamycin palmitate HCl Allergy Hives Verified 02/04/22 12:02 [From Cleocin] clindamycin phosphate Allergy Hives Verified 02/04/22 12:02 [From Cleocin] morphine Allergy Hives Verified 02/04/22 12:02 sulfamethoxazole Allergy Hives Verified 02/04/22 12:02 [From Bactrim] trimethoprim [From Bactrim] Allergy Hives Verified 02/04/22 12:02 hydromorphone HCl AdvReac messes Verified 02/04/22 12:02 [From Dilaudid] with my brain Family History Unknown Multiple sclerosis 1st cousin Father Cancer gun examiner, black lung, Lung CA. Mother Heart disease Diabetes Heart failure Surgical History H/O hernia repair History of cholecystectomy Social History household members: spouse Smoking Status: Never smoker alcohol intake: never substance use type: does not use ROS ROS ED ROS Narrative REVIEW OF SYSTEMS: Unless otherwise stated in this report the patient's positive and negative responses for review of systems for constitutional, eyes, ENT, cardiovascular, respiratory, gastrointestinal, neurological, , musculoskeletal, and integument systems and related systems to the presenting problem are either stated in the history of present illness or were not pertinent or were negative for the symptoms and/or complaints related to the presenting medical problem. EXAM Physical Exam Narrative Exam Narrative: Vital signs reviewed and patient is not hypoxic. General: The patient appears well and in no apparent distress. Patient is resting comfortably on cart. Not toxic, lethargic, or listless. Skin: Warm, dry, no pallor noted. There is no rash noted. Patient has chronic changes of bilateral lower extremities, dry skin, no signs of acute infection. No signs of venous stasis, cellulitis. Patient is very happy, very lively, easy to speak to and answer questions appropriately. No signs of confusion or delirium. Head: Normocephalic, atraumatic Eye: Normal conjunctiva, no drainage, EOMI. PERRL. Ears, Nose, Mouth, and Throat: oral mucosa is moist. Nares patent. Mouth without vesicles. Ear canals patent. Tm's without Erythema Cardiovascular: Regular Rate and Rhythm, no murmurs, gallops, or rubs Respiratory: Patient is in no distress, no accessory muscle use, lungs are clear to auscultation, no wheezing, rales or rhonchi Back: non-tender, no CVA tenderness bilaterally to percussion. NO CTLS midline or a tenderness to palpation. GI: Soft, obese, no peritoneal signs, no flank pain bilateral, no tenderness to palpation, no masses appreciated. No rebound, guarding, or rigidity noted. Patient denies any type of sacral or decubitus ulcerations to her back or lower buttocks or sacrum. Musculoskeletal: The patient has full range of motion of all extremities and joints with no difficulty. Patient has no motor, no sensory deficits. Neurological: A&O x4, normal speech, no focal neurological deficits. Patient is currently at her baseline for multiple sclerosis with her motor and sensory function to her legs. Psychiatric: Cooperative, Patient looks well patient has no signs or symptoms of acute signs of infection. Const Vital Signs: 06/09/22 16:11 06/09/22 17:53 06/09/22 20:27 Temperature 98.7 F Temperature Source Oral Pulse Rate 77 85 81 Respiratory Rate 16 16 14 Blood Pressure 102/84 H 95/64 99/71 Blood Pressure Mean 90 74 80 Pulse Ox 96 100 100 Oxygen Delivery Method Room Air Room Air Room Air [facility] Lab Data Attestation: I reviewed the patient's lab results. Labs: Laboratory Results - last 24 hr 06/09/22 06/09/22 06/09/22 16:47 16:47 16:48 WBC 14.1 H RBC 3.53 L Hgb 10.5 L Hct 32.6 L MCV 92.4 MCH 29.7 MCHC 32.2 RDW Std Deviation 50.1 H RDW Coeff of Mele 14.8 H Plt Count 375 MPV 9.3 Immature Gran % (Auto) 2.300 H Neut % (Auto) 87.4 H Lymph % (Auto) 5.1 L [place] % (Auto) 4.4 Eos % (Auto) 0.5 Baso % (Auto) 0.3 Absolute Neuts (auto) 12.3 H Absolute Lymphs (auto) 0.72 L Nucleated RBC % 0 Sodium 130 L Potassium 3.1 L Chloride 92 L Carbon Dioxide 32.0 Anion Gap 6 BUN 26 H Creatinine 1.09 H Estim Creat Clear Calc 82.20 Est GFR (MDRD) Af Amer 66 Est GFR (MDRD) Non-Af 54 L BUN/Creatinine Ratio 23.9 H Glucose 181 H Calcium 8.0 L Urine Color Yellow Urine Clarity Sl. Cloudy Urine pH 8.0 Ur Specific [place] 1.010 Urine Protein 100 H Urine Glucose (UA) Normal Urine Ketones Negative Urine Occult Blood 25 H Urine Nitrite Positive H Urine Bilirubin Negative Urine Urobilinogen Normal Ur Leukocyte Esterase 500 H Urine RBC 0 SEEN Urine WBC 25-50 SEEN Ur Squamous Epith Cells 0 SEEN Urine Bacteria 1+ Urine Mucus 0 SEEN Treatment and Re-Evaluation Comments:: 1730 I spoke to patient's nurse practitioner Yg Farnsworth who helps take care of this patient at home. She was aware that patient came into the emergency room, but stated the patient was recommended to come to the emergency room last week. Patient was confused, disoriented, and there was a concern for urinary tract infection and dehydration last week. Patient was placed on Macrobid and then Keflex. 1 is aware the patient stopped both of them secondary to diarrhea on Wednesday. Patient also has allergies to Bactrim and Cipro. Patient's choices are limited for oral care especially if she stopped taking Macrobid or Keflex on her own. She also stated the patient had large amount of ketones in her urine as well. Yg was aware that patient is not delusional, confused, and acting completely normal at this time. Patient Did receive 2 L of IV fluid. Patient was given oral potassium to drink as well. Patient was given 1 g Rocephin. Patient will be sent home on Augmentin. Yg is aware of this. Patient will increase fluids at home. Patient is very aware that she may have nausea or diarrhea with the side effect of Augmentin as well. Patient understands that she needs to try to finish the antibiotic if possible so that she does not need to be admitted to the hospital with IV antibiotics. Patient was sent home with a prescription for Zofran prophylactically. No questions at disposition Discharge Plan Triage Chief Complaint: Complaint Other Complaint: Valenzuela C/O ED Provider: Steven De Los Santos Dx/Rx/DC Orders Clinical Impression: Complicated UTI (urinary tract infection), Dehydration, Hyponatremia, Hypokalemia Instructions: Urinary Tract Infections in Women, Dehydration, Indwelling Urinary Catheter Dc, ED Hyponatremia, ED Hypokalemia Prescriptions: New ondansetron [ondansetron] 4 mg tablet,disintegrating 4 mg PO Q4H PRN PRN (Reason: Nausea) Qty: 10 0RF amoxicillin-pot clavulanate [amoxicillin-pot clavulanate] 875-125 mg tablet 875 mg PO Q12H Qty: 20 0RF No Action levothyroxine [Synthroid] 50 mcg tablet 50 mcg PO DAILY glimepiride 4 mg tablet 4 mg PO BID baclofen 10 mg tablet 10 mg PO DAILY Qty: 30 5RF buspirone 5 mg tablet 5 mg PO BID Qty: 60 5RF cholecalciferol (vitamin D3) [Vitamin D3] 25 mcg (1,000 unit) tablet 25 mcg PO BID rosuvastatin 40 MG tablet 40 mg PO DAILY Label Comments: Cholesterol furosemide 40 mg tablet 80 mg PO BREAKFAST Label Comments: TAKE 2 TABLETS EVERY MORNING and 1 IN THE EVENING furosemide 40 mg tablet 40 mg PO QHS Label Comments: TAKE 2 TABLETS EVERY MORNING and 1 IN THE EVENING atorvastatin 80 mg tablet 80 mg PO DAILY Label Comments: TAKE 1 TABLET BY MOUTH DAILY oxycodone-acetaminophen 5-325 mg tablet 1 tab PO TID PRN (Reason: MS ) Label Comments: Take one (1) tablet by mouth three times a day, as needed for multiple sclerosis contractures PALLIATIVE PATIENT metformin 1,000 mg tablet 1,000 mg PO BID Label Comments: TAKE 1 TABLET TWICE DAILY esomeprazole magnesium 40 mg capsule,delayed release(DR/EC) 40 mg PO DAILY Label Comments: TAKE 1 CAPSULE EVERY DAY pregabalin 75 mg capsule 75 mg PO BID Label Comments: Take 1 capsule by mouth twice a day Palliative patient insulin degludec [Tresiba FlexTouch U-200] 200 unit/mL (3 mL) insulin pen 80 unit SUBCUT QHS Label Comments: Inject 80 units sub-q every night at bedtime. Ozempic 1 mg/dose (4 mg/3 mL) pen injector 1 mg SUBCUT QWEEK Label Comments: INJECT 1mg under the skin EVERY week FOR 90 DAYS duloxetine 60 mg capsule,delayed release(DR/EC) 60 mg PO BID Qty: 180 0RF Primary Care Provider: YG BUNCH: YG BUNCH, OFFICE MACHINE EMBOSSOGRAPH OPERATOR-C [Primary Care Provider] - Activity Restrictions/Additional Instructions: Start your next dose of Augmentin tomorrow. Use Zofran if needed to help with nausea. Nausea and diarrhea are common side effects of Augmentin. Try to complete the course of medication. Follow-up with Yg Bunch if any other acute questions or concerns. Disposition Disposition: Home, Self Care
[2022-06-09] MEDS: Ceftriaxone 1 GM/50 ML BAG IV (18:27)
[2022-06-09 20:27] VITALS: BP 99/71; PULSE 81; RESP 14; O2SAT 100
--- NOTE | 2022-06-10 01:16 | ED.RN ---
physicians transport at bedside. report given. care handed over at this time.
--- NOTE | 2022-06-23 10:07 | CASEMGMT ---
JANELL received a call from Heri with Adult Protective Services. Heri was requesting information on referral. JANELL directed Ho[place] to call [facility] as they expressed concerns with patient's care and home situation. They are seeing this first hand. Heri thanked JANELL. Adriana Callaway MANAGER GENERATIONLuz BURRIS
== END 2022-06-10 01:24 | disposition home or self-care (01) ==
PROVIDERS: Emergency Provider Emergency Medicine; PCP Nurse Practitioner Family; Visit Provider Emergency Medicine
DX: N39.0 Urinary tract infection, site not specified (principal); E11.42 Type 2 diabetes mellitus with diabetic polyneuropathy; Z79.4 Long term (current) use of insulin; E86.0 Dehydration; E87.1 Hypo-osmolality and hyponatremia; E87.6 Hypokalemia; F41.9 Anxiety disorder, unspecified; E55.9 Vitamin D deficiency, unspecified; F32.A Depression, unspecified; Z79.899 Other long term (current) drug therapy; Z79.84 Long term (current) use of oral hypoglycemic drugs
CPT/HCPCS: 96365; 96366; 99285; 80048; 81001; 85025; 87077; 87086; 87088; 87186; J7030; A4216

== ENCOUNTER 2022-06-12 10:28 | Inpatient (IN) | payer MEDICARE, MEDICAID, SELFPAY ==
[2022-06-12] VITALS (28 sets, daily range): BP systolic 73–124; BP diastolic 49–80; PULSE 69–125; RESP 14–26; TEMP 36.8–38.1; O2SAT 93–98; BMI 44.6; BMI 43.2
--- NOTE | 2022-06-12 10:42 | EX.ED.DYSGE1 ---
HPI History of Present Illness Chief Complaint: Complaint Onset/Context/Timing Onset: Weeks (1) Context: Gradual Onset Timing: Intermittent Quality: Chills Location: Generalized Worsened by: Nothing Relieved by: Nothing Narrative Narrative: Patient presents with chills that has been intermittent over the last week. Patient states they come on gradually. Patient states she feels like her teeth are chattering and she feels shaky all over. Patient states her temperature at home when this occurred was 96. Patient denies any fevers. Patient was seen here 2 days ago diagnosed with a urinary tract infection. Patient was given a dose of Rocephin here in the emergency department and was given a prescription for Augmentin. Patient states that she has been unable to get her Augmentin filled due to her pharmacy. Patient states that her home health nurse evaluated her today and referred her back to the emergency department for her chills and further evaluation. [facility] Medical History (Updated 06/12/22 @ 16:[address] Arden Lindsey, DO) Anxiety Bedbound delivery delivered Depression History of multiple sclerosis Lymphedema Morbid obesity Multiple sclerosis Polyneuropathy Type II diabetes mellitus Vitamin d deficiency Home Medications rosuvastatin 40 mg tablet 40 mg PO DAILY cholesterol 03/07/13 [History Last Taken 12/02/21] glimepiride 4 mg tablet 4 mg PO BID DM 12/21/19 [History Last Taken 12/02/21] levothyroxine 50 mcg tablet (Synthroid) 50 mcg PO DAILY thyroid 12/21/19 [History Last Taken 12/02/21] duloxetine 60 mg capsule,delayed release 60 mg PO BID #180 caps 06/30/21 [Rx Last Taken 12/02/21] atorvastatin 80 mg tablet 80 mg PO DAILY cholesterol 12/03/21 [History Last Taken 12/02/21] esomeprazole magnesium 40 mg capsule,delayed release 40 mg PO DAILY stomach 12/03/21 [History Last Taken 12/02/21] furosemide 40 mg tablet 40 mg PO QHS fluid 12/03/21 [History Last Taken 12/02/21] furosemide 40 mg tablet 80 mg PO BREAKFAST fluid 12/03/21 [History Last Taken 12/02/21] insulin degludec 200 unit/mL (3 mL) subcutaneous pen (Tresiba FlexTouch U-200 insulin) 80 unit subcut QHS dm 12/03/21 [History Last Taken 12/02/21] metformin 1,000 mg tablet 1,000 mg PO BID DM 12/03/21 [History Last Taken 12/02/21] oxycodone-acetaminophen 5 mg-325 mg tablet 1 tab PO TID PRN MS 12/03/21 [History Last Taken 12/03/21] pregabalin 75 mg capsule 75 mg PO BID pain 12/03/21 [History Last Taken 12/02/21] semaglutide 1 mg/dose (4 mg/3 mL) subcutaneous pen injector (Ozempic) 1 mg subcut QWEEK dm 12/03/21 [History Last Taken 11/29/21] baclofen 10 mg tablet 10 mg PO DAILY #30 tabs 02/04/22 [Rx Last Taken Unknown] buspirone 5 mg tablet 5 mg PO BID #60 tabs 02/04/22 [Rx Last Taken Unknown] cholecalciferol (vitamin D3) 25 mcg (1,000 unit) tablet (Vitamin D3) 25 mcg PO BID 02/04/22 [History Last Taken Unknown] amoxicillin 875 mg-potassium clavulanate 125 mg tablet 875 mg PO Q12H #20 TABLETS 06/09/22 [Rx Last Taken Unknown] ondansetron 4 mg disintegrating tablet 4 mg PO Q4H PRN PRN Nausea #10 tabs 06/09/22 [Rx Last Taken Unknown] Allergy/AdvReac Type Severity Reaction Status Date / Time ampicillin [From Unasyn] Allergy Severe Rash Verified 02/04/22 12:02 sulbactam [From Unasyn] Allergy Severe Rash Verified 02/04/22 12:02 ciprofloxacin [From Cipro] Allergy Hives Verified 02/04/22 12:02 ciprofloxacin HCl Allergy Hives Verified 02/04/22 12:02 [From Cipro] clindamycin HCl Allergy Hives Verified 02/04/22 12:02 [From Cleocin] clindamycin palmitate HCl Allergy Hives Verified 02/04/22 12:02 [From Cleocin] clindamycin phosphate Allergy Hives Verified 02/04/22 12:02 [From Cleocin] morphine Allergy Hives Verified 02/04/22 12:02 sulfamethoxazole Allergy Hives Verified 02/04/22 12:02 [From Bactrim] trimethoprim [From Bactrim] Allergy Hives Verified 02/04/22 12:02 hydromorphone HCl AdvReac messes Verified 02/04/22 12:02 [From Dilaudid] with my brain Family History Unknown Multiple sclerosis 1st cousin Father Cancer death claim examiner, black lung, Lung CA. Mother Heart disease Diabetes Heart failure Surgical History H/O hernia repair History of cholecystectomy Social History household members: spouse Smoking Status: Never smoker alcohol intake: never substance use type: does not use ROS ROS ED Constitutional Constitutional ED: Reports chills; Denies fever(s) Eyes Eyes: Denies blurry vision or change in vision ENT ENT ED: Denies rhinorrhea or sore throat Cardiovascular Cardiovascular: Denies chest pain or palpitations Respiratory/Chest Respiratory/Chest: Denies cough or dyspnea Gastrointestinal Gastrointestinal: Reports nausea; Denies vomiting Genitourinary Genitourinary ED: Denies dysuria or hematuria Musculoskeletal Musculoskeletal: Denies back pain or neck pain Integumentary Denies abscess or rash Neurologic Neurologic: Denies headache(s) or weakness Allergic/Immunologic Allergic/Immunologic ED: Denies mouth swelling or urticaria EXAM Physical Exam Const Vital Signs: 06/12/22 10:29 06/12/22 10:32 06/12/22 10:55 Temperature 100.5 F H 100.5 F H Temperature Source Oral Oral Pulse Rate 124 H 125 H Respiratory Rate 20 H 20 H Blood Pressure 91/58 L 91/58 L Blood Pressure Mean 69 69 Pulse Ox 98 98 Oxygen Delivery Method Room Air Room Air Room Air 06/12/22 12:27 06/12/22 13:03 Temperature 98.3 F 98.3 F Temperature Source Oral Oral Pulse Rate 105 H 98 Respiratory Rate 22 H 22 H Blood Pressure 79/50 L 82/49 L Blood Pressure Mean 59 60 Pulse Ox 93 95 Oxygen Delivery Method Room Air Room Air Positive well nourished, well developed and obese General Appearance ED: well developed and NAD Nutritional Appearance: obese HEENT Reports moist mucous membranes Neck supple and no JVD Resp normal respiratory effort and clear to auscultation bilaterally Cardio regular rhythm and no murmurs Rate: tachycardic GI normal to inspection, nondistended, normoactive bowel sounds and non-tender Palpation: soft Extremity normal to inspection General Extremety ED: Negative for edema or tenderness General Extremity: Negative for edema Neuro oriented x3, CN's II-XII intact bilaterally and no sensory deficits noted Sensorium / Orientation: alert Motor Exam: strength 5/5 throughout Psych mental status grossly normal Sepsis Attestation Sepsis Alert: Yes Sepsis Attestation: Agree w/Sepsis Date exam was performed: 06/12/22 Time exam was performed: 10:45 Possible Source of Sepsis: Genitourinary and Skin/soft tissue Sepsis Organ Dysfunction Criteria Present: SBP < 90 mmHg or MAP < 65 mmHg and Lactic Acid > 2 mmol/L Fluid Resuscitation Fluid resuscitation indicated?: Yes Fluid Resuscitation ordered: 30 ml/kg fluid bolus ordered Sepsis Note Date exam was performed: 06/12/22 Time exam was performed: 13:00 Sepsis Attestation: Sepsis re-evaluation was performed Response to fluids: Non Fluid responsive hypotension and Vasopressors started MDM MDM MDM Narrative Medical decision making narrative: Differential diagnosis includes urinary tract infection, sepsis, pneumonia, dehydration, and electrolyte abnormality. CBC will be obtained to assess for leukocytosis and anemia. Basic metabolic profile will be obtained to assess for electrolyte abnormality and renal function. Lactate will be obtained to assess for sepsis. Blood cultures will be obtained to assess for sepsis. Patient had a urine culture done 2 days ago. Therefore, I do not feel repeat urine culture is necessary. PT with INR and PTT will be obtained to assess for coagulopathy. Chest x-ray will be obtained to assess for pneumonia. History & Record Review Additional record(s) reviewed:: Prior ED visit and Prior labs Lab Data Attestation: I reviewed the patient's lab results. Lab results narrative: CBC was reviewed. There is a leukocytosis of 18.7. This was increased from previous result. Comprehensive metabolic profile was reviewed. BUN was slightly elevated at 23. Creatinine was 1.38. Sodium was slightly low at 129 and chloride was slightly low at 94. Glucose was 270. Alkaline phosphatase was slightly elevated at 233. PT with INR and PTT were reviewed and were within normal limits. Lactate was reviewed and was elevated at 3.6. Urinalysis was reviewed. The leukocyte esterase was 500. There were 25-50 white blood cells and 25-50 red blood cells. There is 2+ bacteria. Labs: Laboratory Results - last 24 hr 06/12/22 06/12/22 06/12/22 10:15 10:15 10:15 WBC 18.7 H RBC 3.91 L Hgb 11.5 L Hct 36.2 L MCV 92.6 MCH 29.4 MCHC 31.8 L RDW Std Deviation 51.3 H RDW Coeff of Mele 15.1 H Plt Count 259 MPV 9.9 Immature Gran % (Auto) 1.000 H Neut % (Auto) 96.1 H Lymph % (Auto) 1.0 L [place] % (Auto) 1.3 Eos % (Auto) 0.1 Baso % (Auto) 0.5 Absolute Neuts (auto) 18.0 H Absolute Lymphs (auto) 0.18 L Nucleated RBC % 0 Diff Path Review May foll Platelet Estimate ADEQUATE RBC Morphology NORM C+C PT 13.1 INR 1.0 APTT 30.7 Sodium 129 L Potassium 3.9 Chloride 94 L Carbon Dioxide 27.0 Anion Gap 8 BUN 23 H Creatinine 1.38 H Estim Creat Clear Calc 67.11 Est GFR (MDRD) Af Amer 50 L Est GFR (MDRD) Non-Af 42 L BUN/Creatinine Ratio 16.7 Glucose 270 H Lactic Acid Calcium 8.5 Total Bilirubin 0.50 AST 29 ALT 7 L Alkaline Phosphatase 233 H Total Protein 6.8 Albumin 1.9 L Globulin 4.9 H Albumin/Globulin Ratio 0.4 L 06/12/22 10:15 WBC RBC Hgb Hct MCV MCH MCHC RDW Std Deviation RDW Coeff of Mele Plt Count MPV Immature Gran % (Auto) Neut % (Auto) Lymph % (Auto) [place] % (Auto) Eos % (Auto) Baso % (Auto) Absolute Neuts (auto) Absolute Lymphs (auto) Nucleated RBC % Diff Path Review Platelet Estimate RBC Morphology PT INR APTT Sodium Potassium Chloride Carbon Dioxide Anion Gap BUN Creatinine Estim Creat Clear Calc Est GFR (MDRD) Af Amer Est GFR (MDRD) Non-Af BUN/Creatinine Ratio Glucose Lactic Acid 3.6 H* Calcium Total Bilirubin AST ALT Alkaline Phosphatase Total Protein Albumin Globulin Albumin/Globulin Ratio Radiography Chest X-Ray - ED: 1 View, Read by ED Physician, Read by Radiologist and No Acute Disease Diagnostic Testing: Clinical Impression(s) from Imaging Studies Chest X-Ray 06/12/22 11:40 IMPRESSION: Degenerative changes, as described above. No demonstrated acute cardiopulmonary process. Electronically Signed: Eduard Jarquin MD at 11:58 EDT , Portable 1 view chest x-ray was obtained. On my independent interpretation, lung sterling are clear. There is normal cardiac silhouette. Bony thorax is normal. There is no acute process noted. Radiologist also interpreted the x-ray and agrees. Postprocedure chest x-ray was obtained. There is 1 view. On my independent interpretation, there is no pneumothorax. The right internal jugular line is in place. There is no acute abnormality noted. Radiologist also interpreted the x-ray and agrees. EKG Initial EKG: Attestation: I personally reviewed and interpreted this EKG as follows: Interpretation: Sinus Tachycardia (118) and Non-Specific ST Changes Comments: EKG was obtained. On my independent interpretation, it showed a sinus tachycardia with a rate of 118. IA interval, QRS interval, and QTc intervals were all normal. Collins was normal. There are nonspecific ST-T wave changes. Prior EKG tracings: available for review Prior: Changed (The nonspecific ST-T wave changes are new compared to previous EKG dated 07/07/2013.) Treatment and Re-Evaluation :: Patient was given IV fluids. Patient was started on cefepime since the Pseudomonas in her previous urine culture was sensitive to that. Patient was given a 30 cc/kg bolus. Patient's blood pressure was still low after this. Patient was started on Levophed. Case was discussed with the hospitalist. She will be in to evaluate the patient. She will admit the patient to ICU. She recommended starting a central line prior to being admitted to ICU. This was done. Please see procedure note. Procedures Other Procedures Procedure(s): Patient was advised of the need for central line placement for IV pressors. Patient was advised of the risks and benefits of placing a central line. Patient was given the opportunity ask questions. Patient had no further questions. Informed consent was obtained. The right internal jugular area was cleaned and prepped in a sterile manner. Sterile drapes were applied. The right internal jugular area was anesthetized with 1% lidocaine locally. Ultrasound guidance was used to cannulate the right internal jugular vein. Guidewire passed easily. A small incision was made at the insertion site. The dilator was passed over the guidewire. The dilator was removed. The triple-lumen catheter was then inserted over the guidewire. Blood was aspirated from all 3 ports. All 3 ports were flushed. The line was sutured in place. Dressing was applied. Patient tolerated the procedure well. Postprocedure chest x-ray will be obtained to assess for pneumothorax and line placement. Critical Care Time Critical Care Time: Yes Critical care time (excluding procedures): 30-74 minutes (37), Including time spent:, Discussing w/Patient &/or Family/Interventional Cardiologist, Discussing w/Consultants, Arranging Admission or Transfer and Performing Direct Patient Care at Bedside Discharge Plan Dx/Rx/DC Orders Clinical Impression: Complicated UTI (urinary tract infection), Sepsis, Leukocytosis, Septic shock, Morbid obesity Disposition Disposition: Acute Care Hospital [facility] Discharge Date/Time: 06/12/22 15:00
--- NOTE | 2022-06-12 10:51 | EKG12_ITS ---
Test Reason : SEPIS Blood Pressure : / mmHG Vent. Rate : 118 BPM Atrial Rate : 118 BPM P-R Int : 128 ms QRS Dur : 086 ms QT Int : 372 ms P-R-T Axes : 043 010 172 degrees QTc Int : 521 ms Sinus tachycardia T wave abnormality, consider inferior ischemia T wave abnormality, consider anterolateral ischemia Prolonged QT Abnormal ECG When compared with ECG of 07-JUL-2013 12:32, Premature ventricular complexes are no longer Present Vent. rate has increased BY 58 BPM T wave inversion now evident in Anterolateral leads Confirmed by SARAH DAVIS ([id number]), proposal editor ALMAZ YE ([id number]) on 06/17/2022 1:40:43 PM Referred By: Confirmed By:SARAH DAVIS
[2022-06-12] MEDS: 0.9% Normal Saline 1,000 ML 999 ML IV ×4 (11:00→13:01)
[2022-06-12] MEDS: Acetaminophen 500 MG Tablet 1000 MG PO (11:00)
[2022-06-12 11:09] LABS: Absolute Lymphocyte Count 0.18 X10^3/uL (0.83-4.51); Basophil# 0.09 X10^3/uL; Basophil% 0.5 % (0-1); Eosinophil# 0.01 X10^3/uL; Eosinophils% 0.1 % (0-5); Hematocrit 36.2 % (37-47); Hemoglobin 11.5 g/dL (12.0-15.0); Lymphocyte # 0.18 X10^3/ul (0.83-4.51); Mean Corp Hgb Conc 31.8 g/dL (32-36); Mean Corpuscular Hgb 29.4 pg (27.0-32.0); Mean Corpuscular Volume 92.6 fL (81-99); Mean Platelet Vol. 9.9 fl (6.2-12.0); Monocyte# 0.24 X10^3/uL; Monocyte% 1.3 % (0-10); NRBC Flagged by Analyzer 0 % (0-5); Neutrophil # 17.98 X10^3/uL (2.7-7.7); Neutrophil % 96.1 % (47-70); POSITIVE DIFFERENTIAL YES; Platelet Count 259 K/mm3 (150-450); RBC Distribution Width CV 15.1 % (11.6-14.6); RBC Distribution Width SD 51.3 fl (35.1-43.9); Red Blood Count 3.91 M/mm3 (4.2-5.4); White Blood Count 18.7 K/mm3 (4.4-11.0)
[2022-06-12 11:14] LABS: Differential Indicated SCAN CRITERIA MET
[2022-06-12 11:20] LABS: Partial Thromboplast Time 30.7 Seconds (24.1-36.2); Prothrombin Time (Protime)PT. 13.1 SECONDS (11.7-14.9)
[2022-06-12 11:25] LABS: ALB/GLOB Ratio 0.4 RATIO (0.9-2.4); AST(SGOT) 29 U/L (15-37); Alanine Aminotransfer ALT/SGPT 7 U/L (13-56); Albumin, Serum 1.9 g/dL (3.2-5.0); Alkaline Phosphatase 233 U/L (45-117); Anion Gap 8 (5-15); BUN 23 mg/dL (7-18); BUN/Creat Ratio 16.7 RATIO (10-20); Calcium,Total 8.5 mg/dL (8.5-10.1); Chloride 94 mmol/L (98-107); Creatinine, Serum 1.38 mg/dL (0.55-1.02); EST Glomerular Filtration Rate 42 mL/min (>60); Est Glom Filt Rate - Afr Amer 50 mL/min (>60); Estimated Creatinine Clearance 67.11 ml/min; Globulin 4.9 g/dL (2.2-4.2); Glucose 270 mg/dL (74-106); Potassium 3.9 mmol/L (3.5-5.1); Protein, Total 6.8 g/dL (6.4-8.2); Sodium Level 129 mmol/L (136-145)
[2022-06-12 11:39] LABS: Lactic Acid 3.6 mmol/L (0.4-1.9)
[2022-06-12 11:40] LABS: Platelet Estimate ADEQUATE (ADEQ); Red Cell Morphology NORM C+C NORMAL (NORM C&C)
--- NOTE | 2022-06-12 11:40 | RAD_ITS ---
STUDY: X-RAY CHEST REASON FOR EXAM: Female, 61 years old. Fever TECHNIQUE: Single AP portable view of the chest. COMPARISON: None. FINDINGS: The lungs are clear and expanded. There is no demonstrated pleural abnormality. Normal size heart. Normal mediastinum and richar. Normal visualized pulmonary arteries. There is atherosclerotic calcification of the aortic arch with tortuosity. There are diffuse degenerative changes of the visualized thoracic spine. Normal visualized ribs, clavicles, and shoulders. There is no demonstrated abnormality of the visualized soft tissue structures of the upper abdomen. RAD/Chest 1 View (Portable) IMPRESSION: Degenerative changes, as described above. No demonstrated acute cardiopulmonary process. Electronically Signed: Eduard Jarquin MD at 11:58 EDT ,
--- NOTE | 2022-06-12 11:40 | ED.RN ---
lactic 3.6. aware
--- NOTE | 2022-06-12 13:39 | VDLE_ITS ---
Reason For Study: LEG SWELLING RIGHT LEFT CFV is compressible, spontaneous, phasic, GSV is normal. competent and demonstrates normal CFV is compressible, spontaneous, phasic, augmentation. competent, and demonstrates normal Procedure augmentation. This is a venous duplex using B-mode, color FV is compressible, spontaneous, phasic, flow and spectral Doppler. competent and demonstrates normal Exam performed portable in ICU/CCU. augmentation. The exam was of poor technical quality due to POP V is compressible. body habitus, patient immobility, lesions. T/P Trunk is compressible. Limited views were obtained. PTV is compressible. A preliminary report was called and/or faxed LT PerV is compressible. to DIRECTOR [employer] responsible for patient. VL/Venous Duplex US, Unilateral Interpretation Summary There is no evidence of left lower extremity deep vein thrombosis. Left great s aphenous vein appears patent and compressible segmentally. Normal flow patterns right common femoral vein Poor technical quality as noted. Ordering Physician: Nicolasa Stokes Referring Physician: Sheri King Performed By: Matthew Medina RVT
--- NOTE | 2022-06-12 13:40 | PCM.HP.STD ---
HPI - General General Date of Admission: 06/12/22 Date of Service: 06/12/22 Chief Complaint: Urinary tract infection HPI Narrative MARIA D SMITH, is a 61 F with a history of MS, multidrug-resistant organism UTIs, chronic Neal who presented to [facility] 06/12/2022 due to feeling general malaise and unwell. She presented to the ED 06/09 for symptoms concerning for UTI and had urine culture and was sent out on Augmentin however for logistical reasons she was unable to fill this. She continued to feel worse and was brought back to the ED. In the emergency department temperature was 100.5, blood pressure initially 91/56 with a heart rate of 125. White blood cell count 18.7, lactic acid 3.6. She was started on her sepsis fluid resuscitation but despite that remained hypotensive and was started on Levophed for septic shock and cefepime as her UA from 06/09 grew Pseudomonas sensitive to all but fluoroquinolones. Hospitalist consulted for admission. Patient seen at bedside and reports that she is feeling much better than she did when she initially arrived. She said when she is getting UTIs she feels a little twitchy down there and she was feeling worse throughout the day. Had difficulty describing any other symptoms but had no other complaints at this time other than she was starting to get hungry. She reports she is supposed to have a what sounds to be suprapubic Neal catheter placed on the and she has her Neal is changed weekly but has had multiple UTIs despite this. [facility] Medical History Anxiety Bedbound delivery delivered Depression History of multiple sclerosis Lymphedema Morbid obesity Multiple sclerosis Polyneuropathy Type II diabetes mellitus Vitamin d deficiency Home Medications rosuvastatin 40 mg tablet 40 mg PO DAILY cholesterol 03/07/13 [History Last Taken 12/02/21] glimepiride 4 mg tablet 4 mg PO BID DM 12/21/19 [History Last Taken 12/02/21] levothyroxine 50 mcg tablet (Synthroid) 50 mcg PO DAILY thyroid 12/21/19 [History Last Taken 12/02/21] duloxetine 60 mg capsule,delayed release 60 mg PO BID #180 caps 06/30/21 [Rx Last Taken 12/02/21] atorvastatin 80 mg tablet 80 mg PO DAILY cholesterol 12/03/21 [History Last Taken 12/02/21] esomeprazole magnesium 40 mg capsule,delayed release 40 mg PO DAILY stomach 12/03/21 [History Last Taken 12/02/21] furosemide 40 mg tablet 40 mg PO TID fluid 12/03/21 [History Last Taken 12/02/21] furosemide 40 mg tablet 80 mg PO BREAKFAST fluid 12/03/21 [History Last Taken 12/02/21] insulin degludec 200 unit/mL (3 mL) subcutaneous pen (Tresiba FlexTouch U-200 insulin) 80 unit subcut QHS dm 12/03/21 [History Last Taken 12/02/21] metformin 1,000 mg tablet 1,000 mg PO BID DM 12/03/21 [History Last Taken 12/02/21] oxycodone-acetaminophen 5 mg-325 mg tablet 1 tab PO TID PRN MS 12/03/21 [History Last Taken 12/03/21] pregabalin 75 mg capsule 75 mg PO BID pain 12/03/21 [History Last Taken 12/02/21] semaglutide 1 mg/dose (4 mg/3 mL) subcutaneous pen injector (Ozempic) 1 mg subcut QWEEK dm 12/03/21 [History Last Taken 11/29/21] buspirone 5 mg tablet 5 mg PO BID #60 tabs 02/04/22 [Rx Last Taken Unknown] cholecalciferol (vitamin D3) 25 mcg (1,000 unit) tablet (Vitamin D3) 25 mcg PO BID 02/04/22 [History Last Taken Unknown] amoxicillin 875 mg-potassium clavulanate 125 mg tablet 875 mg PO Q12H #20 TABLETS 06/09/22 [Rx Last Taken Unknown] ondansetron 4 mg disintegrating tablet 4 mg PO Q4H PRN PRN Nausea #10 tabs 06/09/22 [Rx Last Taken Unknown] baclofen 10 mg tablet 10 mg PO Q6H PRN PRN Muscle Spasm 06/12/22 [History Last Taken Unknown] fingolimod 0.5 mg capsule (Captain WiseenSuperb) 0.5 mg PO DAILY Check with primary doctor 06/12/22 [History Last Taken Unknown] Allergy/AdvReac Type Severity Reaction Status Date / Time ampicillin [From Unasyn] Allergy Severe Rash Verified 02/04/22 12:02 sulbactam [From Unasyn] Allergy Severe Rash Verified 02/04/22 12:02 ciprofloxacin [From Cipro] Allergy Hives Verified 02/04/22 12:02 ciprofloxacin HCl Allergy Hives Verified 02/04/22 12:02 [From Cipro] clindamycin HCl Allergy Hives Verified 02/04/22 12:02 [From Cleocin] clindamycin palmitate HCl Allergy Hives Verified 02/04/22 12:02 [From Cleocin] clindamycin phosphate Allergy Hives Verified 02/04/22 12:02 [From Cleocin] morphine Allergy Hives Verified 02/04/22 12:02 sulfamethoxazole Allergy Hives Verified 02/04/22 12:02 [From Bactrim] trimethoprim [From Bactrim] Allergy Hives Verified 02/04/22 12:02 hydromorphone HCl AdvReac messes Verified 02/04/22 12:02 [From Dilaudid] with my brain Family History Unknown Multiple sclerosis 1st cousin Father Cancer medical claims examiner, black lung, Lung CA. Mother Heart disease Diabetes Heart failure Surgical History H/O hernia repair History of cholecystectomy Social History household members: spouse Smoking Status: Never smoker alcohol intake: never substance use type: does not use ROS ROS Narrative General: Some general malaise HENT: Denies headache, denies stuffy nose, denies sore throat EYES: Denies changes in vision Resp: Denies cough, denies shortness of breath Cardiac: Denies chest pain GI: Had a little suprapubic pain possibly earlier, denies changes in bowel, denies nausea/vomiting : Has chronic Neal Extremity: Has some chronic left lower extremity swelling more so than right MSK: Chronic MS changes Neuro: Denies any changes in numbness or tingling Heme: Denies any bleeding or bruising Skin: Denies rashes, chronic changes on lower extremities Psychiatric: No complaints voiced Vital Signs Vital Signs Vital Signs: 06/12/22 10:29 06/12/22 10:32 06/12/22 10:55 Temperature 100.5 F H 100.5 F H Temperature Source Oral Oral Pulse Rate 124 H 125 H Respiratory Rate 20 H 20 H Blood Pressure 91/58 L 91/58 L Blood Pressure Mean 69 69 Pulse Ox 98 98 Oxygen Delivery Method Room Air Room Air Room Air 06/12/22 12:27 06/12/22 13:03 06/12/22 13:38 Temperature 98.3 F 98.3 F Temperature Source Oral Oral Pulse Rate 105 H 98 97 Respiratory Rate 22 H 22 H 23 H Blood Pressure 79/50 L 82/49 L 81/49 L Blood Pressure Mean 59 60 59 Pulse Ox 93 95 95 Oxygen Delivery Method Room Air Room Air Weight Weight: 96.842 kg Body Mass Index (BMI) 44.6 Physical Exam Narrative General: Alert, oriented, no apparent distress HEENT: Atraumatic Eyes: Anicteric, normal conjunctiva, extraocular movements grossly intact Neck: Supple Respiratory: Clear to auscultation bilaterally, normal respiratory effort Cardiovascular: Regular rate and rhythm GI: Soft, nontender, nondistended Extremities: Lower extremity edema left greater than right Musculoskeletal: Moves upper extremities, has MS and laying in bed Neuro: Baseline mainly bedridden secondary to MS, no other overt focal complaints appreciated Skin: Bilateral lower extremity changes Psych: Very cooperative and pleasant Results Lab / Micro Data Result Diagrams: 06/12/22 10:15 06/12/22 10:15 Labs: Laboratory Results - last 24 hr 06/12/22 10:15: WBC 18.7 H, RBC 3.91 L, Hgb 11.5 L, Hct 36.2 L, MCV 92.6, MCH 29.4, MCHC 31.8 L, RDW Std Deviation 51.3 H, RDW Coeff of Mele 15.1 H, Plt Count 259, MPV 9.9, Immature Gran % (Auto) 1.000 H, Neut % (Auto) 96.1 H, Lymph % (Auto) 1.0 L, [place] % (Auto) 1.3, Eos % (Auto) 0.1, Baso % (Auto) 0.5, Absolute Neuts (auto) 18.0 H, Absolute Lymphs (auto) 0.18 L, Nucleated RBC % 0, Diff Path Review June, Platelet Estimate ADEQUATE, RBC Morphology NORM C+C 06/12/22 10:15: PT 13.1, INR 1.0, APTT 30.7 06/12/22 10:15: Sodium 129 L, Potassium 3.9, Chloride 94 L, Carbon Dioxide 27.0, Anion Gap 8, BUN 23 H, Creatinine 1.38 H, Estim Creat Clear Calc 67.11, Est GFR (MDRD) Af Amer 50 L, Est GFR (MDRD) Non-Af 42 L, BUN/Creatinine Ratio 16.7, Glucose 270 H, Calcium 8.5, Total Bilirubin 0.50, AST 29, ALT 7 L, Alkaline Phosphatase 233 H, Total Protein 6.8, Albumin 1.9 L, Globulin 4.9 H, Albumin/Globulin Ratio 0.4 L 06/12/22 10:15: Lactic Acid 3.6 H* Radiology Impression Chest X-Ray 06/12/22 11:40 IMPRESSION: Degenerative changes, as described above. No demonstrated acute cardiopulmonary process. Electronically Signed: Eduard Jarquin MD at 11:58 EDT Reading Location ID and State: [address] [place] [address] , Service support , Assessment & Plan Assessment/Plan (1) Septic shock: PLAN: Plan #Septic shock secondary to Pseudomonas UTI -Received 30 cc/kg fluid resuscitation and remained hypotensive and right IJ was placed and she was started on Levophed and sent to the ICU -White blood cell count 18 in the ED and lactic acid 3.6. Lactic acid normalized to 1.5 after sepsis fluid protocol and Levophed -Urine culture from 411 growing Pseudomonas sensitive to all but fluoroquinolones and another gram-negative alfie that has not yet speciated -Manager Case consulted -Infectious disease consulted -Continue cefepime -Blood cultures obtained #EDWINA on CKDIIIb -Likely secondary to #1, avoid nephrotoxic agents, has received fluid hydration -Holding Lasix #DMII -Cont long acting at 40u -Hold oral home meds -SSI and glucose checks #MS/Chronic pain/Chronic neal -OT consulted -Neal changed -Supportive care #hypothyroidism -Cont synthroid -TSH in am #DVT ppx: Heparin subcu Nicolasa Stokes MD Time spent in the patient's overall evaluation,decision-making process, review of diagnostic data, adjustment of management, discussion with other providers, nursing nursing and ancillary staff involved in patient's care documentation, 60 minutes Charges/Coding Visit Charges Inpatient E&M: 43702 Subs Hosp L2
[2022-06-12 13:49] LABS: Mucous, Urine 0 SEEN /hpf (<or=2+)
[2022-06-12 13:51] LABS: Color, Urine Yellow (Yellow); Glucose, Dipstick 50 mg/dl (Normal); Ketone-Dipstick 5 mg/dl (Negative); Leukocyte Esterase-Dipstick 500 /ul (Negative); Nitrite-Dipstick Negative (Negative); Occult Blood-Urine 250 /ul (Negative); Protein-Dipstick 100 mg/dl (Negative); Specific Gravity, Urine 1.015 (1.002-1.030); Urine Clarity Cloudy (Clear); Urine Urobilinogen 1 mg/dl (Normal)
[2022-06-12 13:52] LABS: Urine Bilirubin Dipstick 1 mg/dL (Negative)
--- NOTE | 2022-06-12 14:11 | ED.RN ---
PATIENT SAYS DAUGHTER NEEDS TO BRING HER CELL PHONE IN TO HER AND THAT HER MEDICATION LIST IS MOSTLY IS ON MY PHONE. NUMBER WE HAVE FOR THAT DAUGHTER WAS ATTEMPTED X2 GIVING THE SAME DISCONNECTED MESSAGE.
[2022-06-12 14:13] LABS: Bacteria 2+ /hpf (None Seen); Red Blood Cells-Urine 25-50 SEEN /hpf (0-5); Squamous Epithelial Cells - UA 0-5 SEEN /hpf (5-10); White Blood Cells 25-50 SEEN /hpf (0-5)
--- NOTE | 2022-06-12 14:50 | RAD_ITS ---
STUDY: X-RAY CHEST REASON FOR EXAM: Female, 61 years old. Line placement TECHNIQUE: Single AP portable view of the chest. COMPARISON: June 12, 2022 at 11:39 AM FINDINGS: A new right IJ catheter has been placed terminating in the mid SVC. No pneumothorax is present. The lungs are clear and expanded. There is no demonstrated pleural abnormality. Normal size heart. Normal mediastinum and richar. Normal visualized pulmonary arteries. There is atherosclerotic calcification of the aortic arch with tortuosity. There are diffuse degenerative changes of the visualized thoracic spine. Normal visualized ribs, clavicles, and shoulders. There is no demonstrated abnormality of the visualized soft tissue structures of the upper abdomen. RAD/Chest 1 View (Portable) IMPRESSION: New right IJ catheter. Electronically Signed: Eduard Jarquin MD at 15:43 EDT ,
[2022-06-12 15:03] LABS: Reflex Lactate? Y
--- NOTE | 2022-06-12 15:12 | CON.PCM.CC_ITS ---
Assessment & Plan Assessment/Plan (1) Septic shock: (2) Complicated UTI (urinary tract infection): (3) Morbid obesity: (4) Multiple sclerosis: PLAN: Plan RECOMMENDATIONS: 1. No further fluid boluses. Titrate pressors as necessary 2. Continue with cefepime 3. Consult wound care for lower extremities 4. Hold oral glycemic meds. Okay to continue Lantus 5. Hold Lasix IMPRESSIONS: 1. Septic shock secondary to UTI secondary to chronic Valenzuela Multiple previous infections with variable sensitivities. Cefepime appea rs to be a good choice using these cultures. Patient has received fluid boluses with marginal improvement. Central line is in place, so recommend titrating pressors if necessary. Valenzuela has been changed. Patient does have an increase in baseline creatinine indicating endorgan damage, along with an elevated lactic acid. 2. Acute kidney injury on CKD stage IIIb Baseline creatinine appears to be 0.8. Clinical suspicion for prerenal etiology. This would be exacerbated by baseline Lasix. We will have to monitor medications for accumulation if not improving in the near future. No indication for renal replacement therapy at this time. 3. Morbid obesity/MS/chronic pain syndrome/hypothyroidism Complicates care, management, recovery and prognosis. Patient reportedly immobile at baseline. We will continue to monitor closely. High clinical suspicion for obstructive sleep apnea. Cannot exclude the need for empiric BiPAP therapy. Patient has never had an echocardiogram, but would be at risk for diastolic congestive heart failure TIME: 35 minutes critical care time spent addressing patient septic shock, acute kidney injury, morbid obesity, review of all data and collaboration with care team HPI Consult Data Date of Consult: 06/12/22 HPI Narrative Reason for Consultation: Septic shock HPI Narrative: MARIA D SMITH is a 61 F, with past medical history listed below, who presents to [facility] on 06/12/2022 secondary to progressive chills and fatigue. Patient reportedly was in the ER 2 days prior and diagnosed with a urinary tract infection. Patient received a dose of Rocephin and was sent home for prescription of Augmentin. Patient unfortunately was unable to get her Augmentin filled due to her pharmacy and when her home health nurse came to evaluate her today she was sent back to the emergency department for further evaluation. Patient does have multiple reported allergies resulting in hives and rashes. In the ER, patient was noted to have a temperature of 100.5 ?F, heart rate of 125 bpm and hypotensive at 91/58. Patient was tachypneic as high as 22 breaths/min. Laboratory work-up showed a white blood cell count of 18.7, hemoglobin of 11.5 and platelets of 259. Coagulation studies were within normal limits. Chemistry showed a sodium of 129, chloride of 94 and a creatinine of 1.38. Glucose was elevated at 270 and alkaline phosphatase was 233. Lactate was elevated at 3.6. Chest x-ray showed no acute infiltrates, but degenerative changes. Patient reportedly has a history of MDRO organisms. Patient was given a bolus of 30 cc/kg following cefepime and ultimately had to be started on Levophed. Patient had a central line placed and was transferred to the in tensive care unit for further evaluation. Since being in the intensive care unit, patient feels subjectively slightly improved compared to previous. Patient is still reporting a sensation of chills. Patient reportedly is immobile secondary to MS and has been laying in excrement for at least the day. Patient states that she is dependent on her home health nurse for most of her issues. Patient does have a history of multiple urinary tract infections in the past, but denies any history of kidney stones. Review of the medical record shows patient's baseline creatinine about 0.8. Review of systems otherwise negative from a constitutional, HEENT, respiratory, cardiovascular, GI, genitourinary, musculoskeletal, skin, neurologic, psychiatric and hematologic system unless stated above. [facility] Medical History (Updated 06/12/22 @ 15:[address] Adebayo Vanegas MD) Anxiety Bedbound delivery delivered Depression History of multiple sclerosis Lymphedema Morbid obesity Multiple sclerosis Polyneuropathy Type II diabetes mellitus Vitamin d deficiency Home Medications rosuvastatin 40 mg tablet 40 mg PO DAILY cholesterol 03/07/13 [History Last Taken 12/02/21] glimepiride 4 mg tablet 4 mg PO BID DM 12/21/19 [History Last Taken 12/02/21] levothyroxine 50 mcg tablet (Synthroid) 50 mcg PO DAILY thyroid 12/21/19 [History Last Taken 12/02/21] duloxetine 60 mg capsule,delayed release 60 mg PO BID #180 caps 06/30/21 [Rx Last Taken 12/02/21] atorvastatin 80 mg tablet 80 mg PO DAILY cholesterol 12/03/21 [History Last Taken 12/02/21] esomeprazole magnesium 40 mg capsule,delayed release 40 mg PO DAILY stomach 12/03/21 [History Last Taken 12/02/21] furosemide 40 mg tablet 40 mg PO QHS fluid 12/03/21 [History Last Taken 12/02/21] furosemide 40 mg tablet 80 mg PO BREAKFAST fluid 12/03/21 [History Last Taken 12/02/21] insulin degludec 200 unit/mL (3 mL) subcutaneous pen (Tresiba FlexTouch U-200 insulin) 80 unit subcut QHS dm 12/03/21 [History Last Taken 12/02/21] metformin 1,000 mg tablet 1,000 mg PO BID DM 12/03/21 [History Last Taken 12/02/21] oxycodone-acetaminophen 5 mg-325 mg tablet 1 tab PO TID PRN MS 12/03/21 [History Last Taken 12/03/21] pregabalin 75 mg capsule 75 mg PO BID pain 12/03/21 [History Last Taken 12/02/21] semaglutide 1 mg/dose (4 mg/3 mL) subcutaneous pen injector (Ozempic) 1 mg subcut QWEEK dm 12/03/21 [History Last Taken 11/29/21] baclofen 10 mg tablet 10 mg PO DAILY #30 tabs 02/04/22 [Rx Last Taken Unknown] buspirone 5 mg tablet 5 mg PO BID #60 tabs 02/04/22 [Rx Last Taken Unknown] cholecalciferol (vitamin D3) 25 mcg (1,000 unit) tablet (Vitamin D3) 25 mcg PO BID 02/04/22 [History Last Taken Unknown] amoxicillin 875 mg-potassium clavulanate 125 mg tablet 875 mg PO Q12H #20 TABLETS 06/09/22 [Rx Last Taken Unknown] ondansetron 4 mg disintegrating tablet 4 mg PO Q4H PRN PRN Nausea #10 tabs 06/09/22 [Rx Last Taken Unknown] Allergy/AdvReac Type Severity Reaction Status Date / Time ampicillin [From Unasyn] Allergy Severe Rash Verified 02/04/22 12:02 sulbactam [From Unasyn] Allergy Severe Rash Verified 02/04/22 12:02 ciprofloxacin [From Cipro] Allergy Hives Verified 02/04/22 12:02 ciprofloxacin HCl Allergy Hives Verified 02/04/22 12:02 [From Cipro] clindamycin HCl Allergy Hives Verified 02/04/22 12:02 [From Cleocin] clindamycin palmitate HCl Allergy Hives Verified 02/04/22 12:02 [From Cleocin] clindamycin phosphate Allergy Hives Verified 02/04/22 12:02 [From Cleocin] morphine Allergy Hives Verified 02/04/22 12:02 sulfamethoxazole Allergy Hives Verified 02/04/22 12:02 [From Bactrim] trimethoprim [From Bactrim] Allergy Hives Verified 02/04/22 12:02 hydromorphone HCl AdvReac messes Verified 02/04/22 12:02 [From Dilaudid] with my brain Family History Unknown Multiple sclerosis 1st cousin Father Cancer commercial title examiner, black lung, Lung CA. Mother Heart disease Diabetes Heart failure Surgical History H/O hernia repair History of cholecystectomy Social History household members: spouse Smoking Status: Never smoker alcohol intake: never substance use type: does not use ROS ROS Narrative See HPI Physical Exam Const alert and no apparent distress Constitutional Narrative: Morbidly obese. HEENT normocephalic and head/scalp atraumatic Teeth and Gingiva: poor dentition Eyes EOMs intact bilaterally Neck supple and No nodes Neck Narrative: Right IJ is clean, dry and intact General: CVC in place Resp normal air movement and clear to auscultation bilaterally Auscultation: diminished lung sounds diffuse (Secondary to body habitus); Ne gative for rales, rhonchi or wheezes Cardio regular rate, regular rhythm, S1 normal heart sound, S2 normal heart sound, no murmurs, no rub and no gallops GI non-tender, non-distended and hepatosplenomegaly Extremity General Extremity: edema Skin Skin Narrative: Significant discoloration of bilateral lower extremities. Diminished pulses noted. Neuro CN's II-XII intact bilaterally and moves all extremities Psych cooperative and affect normal Medical Records Data Attestation: I reviewed the patient's medical records Lab / Micro Data Attestation: I reviewed the patient's lab results. Result Diagrams: 06/12/22 10:15 06/12/22 10:15 Labs: Laboratory Results - last 24 hr 06/12/22 10:15: WBC 18.7 H, RBC 3.91 L, Hgb 11.5 L, Hct 36.2 L, MCV 92.6, MCH 29.4, MCHC 31.8 L, RDW Std Deviation 51.3 H, RDW Coeff of Mele 15.1 H, Plt Count 259, MPV 9.9, Immature Gran % (Auto) 1.000 H, Neut % (Auto) 96.1 H, Lymph % (Auto) 1.0 L, [place] % (Auto) 1.3, Eos % (Auto) 0.1, Baso % (Auto) 0.5, Absolute Neuts (auto) 18.0 H, Absolute Lymphs (auto) 0.18 L, Nucleated RBC % 0, Diff Path Review June, Platelet Estimate ADEQUATE, RBC Morphology NORM C+C 06/12/22 10:15: PT 13.1, INR 1.0, APTT 30.7 06/12/22 10:15: Sodium 129 L, Potassium 3.9, Chloride 94 L, Carbon Dioxide 27.0, Anion Gap 8, BUN 23 H, Creatinine 1.38 H, Estim Creat Clear Calc 67.11, Est GFR (MDRD) Af Amer 50 L, Est GFR (MDRD) Non-Af 42 L, BUN/Creatinine Ratio 16.7, Glucose 270 H, Calcium 8.5, Total Bilirubin 0.50, AST 29, ALT 7 L, Alkaline Phosphatase 233 H, Total Protein 6.8, Albumin 1.9 L, Globulin 4.9 H, Albumin/Globulin Ratio 0.4 L 06/12/22 10:15: Lactic Acid 3.6 H* 06/12/22 13:45: Urine Color Yellow, Urine Clarity Cloudy, Urine pH 6.0, Ur Specific [place] 1.015, Urine Protein 100 H, Urine Glucose (UA) 50 H, Urine Ketones 5 H, Urine Occult Blood 250 H, Urine Nitrite Negative, Urine Bilirubin 1 H, Urine Urobilinogen 1 H, Ur Leukocyte Esterase 500 H, Urine RBC 25-50 SEEN, Urine WBC 25-50 SEEN, Ur Squamous Epith Cells 0-5 SEEN, Urine Bacteria 2+, Urine Mucus 0 SEEN Micro: Patient has grown pseudomonal species from multiple cultures. Patient with latest showing intermediate sensitivity to Cipro and Levaquin. Patient is also growing Proteus mirabilis, E. coli and Klebsiella in the past Radiology Impression Chest X-Ray 06/12/22 11:40 IMPRESSION: Degenerative changes, as described above. No demonstrated acute cardiopulmonary process. Electronically Signed: Eduard Jarquin MD at 11:58 EDT Reading Location ID and State: [facility] / [place] , Service support , Charges/Coding Procedures Hospitalists Procedures: [id number] Critial Care 1st Hr
[2022-06-12] MEDS: 0.9% Normal Saline 1,000 ML 100 ML IV (15:43)
[2022-06-12 16:56] LABS: Lactic Acid 1.5 mmol/L (0.4-1.9)
[2022-06-12] MEDS: Insulin Lispro 100 UNIT/ML INSULN.PEN SC ×2 (17:15→21:00)
[2022-06-12 19:25] LABS: Bedside Glucose 296 mg/dL (74-106)
[2022-06-12] MEDS: DULoxetine Hcl 30 MG Capsule PO (20:55)
[2022-06-12] MEDS: Heparin Injection (Vial) 5,000 UNIT/ML VIAL 5000 UNIT SC (20:55)
[2022-06-12] MEDS: Menthol/Lanolin/Calamine/Znox 113 GM Tube 1 APPLIC TOPICAL (20:55)
[2022-06-12] MEDS: Nystatin Powder 15gm Bottle 1 APPLIC TOPICAL (20:56)
[2022-06-12] MEDS: Insulin Glargine-YFGN 100 UNIT/ML Pen 40 UNIT SC (21:00)
[2022-06-12 21:31] LABS: Bedside Glucose 270 mg/dL (74-106)
[2022-06-13] VITALS (35 sets, daily range): BP systolic 82–106; BP diastolic 53–73; PULSE 68–103; RESP 14–25; TEMP 36–37.4; O2SAT 91–100; BMI 44.4
[2022-06-13] MEDS: 0.9% Normal Saline 1,000 ML 100 ML IV (01:50)
[2022-06-13 03:59] LABS: Absolute Lymphocyte Count 0.65 X10^3/uL (0.83-4.51); Absolute Neutrophil Count 13.6 X10^3/uL (2.0-7.7); Basophil# 0.05 X10^3/uL; Basophil% 0.3 % (0-1); Eosinophil# 0.12 X10^3/uL; Eosinophils% 0.8 % (0-5); Hematocrit 26.9 % (37-47); Hemoglobin 8.6 g/dL (12.0-15.0); Lymphocyte # 0.65 X10^3/ul (0.83-4.51); Lymphocyte % 4.2 % (19-41); Mean Corpuscular Hgb 29.5 pg (27.0-32.0); Mean Corpuscular Volume 92.1 fL (81-99); Mean Platelet Vol. 9.7 fl (6.2-12.0); Monocyte# 0.83 X10^3/uL; Monocyte% 5.4 % (0-10); NRBC Flagged by Analyzer 0 % (0-5); Neutrophil # 13.57 X10^3/uL (2.7-7.7); Platelet Count 195 K/mm3 (150-450); RBC Distribution Width CV 15.1 % (11.6-14.6); RBC Distribution Width SD 50.8 fl (35.1-43.9); Red Blood Count 2.92 M/mm3 (4.2-5.4); White Blood Count 15.4 K/mm3 (4.4-11.0)
[2022-06-13 04:28] LABS: ALB/GLOB Ratio 0.4 RATIO (0.9-2.4); AST(SGOT) 20 U/L (15-37); Alanine Aminotransfer ALT/SGPT 9 U/L (13-56); Albumin, Serum 1.3 g/dL (3.2-5.0); Alkaline Phosphatase 110 U/L (45-117); Anion Gap 6 (5-15); BUN 23 mg/dL (7-18); BUN/Creat Ratio 24.9 RATIO (10-20); Calcium,Total 7.3 mg/dL (8.5-10.1); Chloride 107 mmol/L (98-107); Creatinine, Serum 0.92 mg/dL (0.55-1.02); EST Glomerular Filtration Rate 66 mL/min (>60); Est Glom Filt Rate - Afr Amer 80 mL/min (>60); Globulin 3.7 g/dL (2.2-4.2); Glucose 189 mg/dL (74-106); Sodium Level 137 mmol/L (136-145); Thyroid Stim Hormone (TSH) 1.95 uIU/mL (0.358-3.74)
[2022-06-13] MEDS: Levothyroxine 50 MCG Tablet PO (05:02)
[2022-06-13] MEDS: Heparin Injection (Vial) 5,000 UNIT/ML VIAL 5000 UNIT SC ×3 (05:02→20:47)
--- NOTE | 2022-06-13 06:47 | PN.CC_ITS ---
Assessment & Plan Assessment/Plan (1) Septic shock: (2) Complicated UTI (urinary tract infection): (3) Morbid obesity: (4) Multiple sclerosis: PLAN: Plan RECOMMENDATIONS: 1. No further fluid boluses. Titrate pressors as necessary 2. Continue with cefepime 3. Consult wound care for lower extremities 4. Hold oral glycemic meds. Okay to continue Lantus 5. Hold Lasix until off of pressors IMPRESSIONS: 1. Septic shock secondary to UTI secondary to chronic Valenzuela Multiple previous infections with variable sensitivities. Cefepime appears to be a good choice using these cultures. Patient has received fluid boluses with marginal improvement. Central line is in place, so recommend titrating pressors if necessary. Valenzuela has been changed. Patient does have an increase in baseline creatinine indicating endorgan damage, along with an elevated lactic acid. 2. Acute kidney injury on CKD stage IIIb Improving. Baseline creatinine appears to be 0.8. Clinical suspicion for prerenal etiology. This would be exacerbated by baseline Lasix. We will have to monitor medications for accumulation if not improving in the near future. No indication for renal replacement therapy at this time. 3. Morbid obesity/MS/chronic pain syndrome/hypothyroidism Complicates care, management, recovery and prognosis. Patient reportedly immobile at baseline. We will continue to monitor closely. High clinical suspicion for obstructive sleep apnea. Cannot exclude the need for empiric BiPAP therapy. Patient has never had an echocardiogram, but would be at risk for diastolic congestive heart failure TIME: 32 minutes critical care time spent addressing patient septic shock, acute kidney injury, morbid obesity, review of all data and collaboration with care team Subjective Subjective Patient did okay overnight. No acute issues were reported. Patient still requiring Levophed to maintain pressures. Patient subjectively feels improved compared to previous. Patient is not reporting any abdominal pain. No nausea or vomiting has been reported. Objective Data Objective Data Vital Signs: Vital Signs Temp Pulse Resp BP Pulse Ox O2 Del Method 36.9 C 71 16 98/57 L 97 Room Air 06/13/22 00:00 06/13/22 04:00 06/13/22 04:00 06/13/22 04:00 06/13/22 04:00 06/13/22 04:00 Oxygen Delivery Method Room Air Weight: 96.5 kg Body Mass Index (BMI) 44.4 Intake & Output: Intake and Output for Last 24 Hours 06/11/22 06/12/22 06/13/22 23:59 23:59 23:59 Intake Total 4483.12 / 4485.47 1033.32 / 1033.32 Output Total 350 / 600 250 / 250 Balance 4133.12 / 3885.47 783.32 / 783.32 Lab / Micro Data Attestation: I reviewed the patient's lab results. Result Diagrams: 06/13/22 03:41 06/13/22 03:41 Labs: Laboratory Results - last 24 hr 06/12/22 10:15: WBC 18.7 H, RBC 3.91 L, Hgb 11.5 L, Hct 36.2 L, MCV 92.6, MCH 29.4, MCHC 31.8 L, RDW Std Deviation 51.3 H, RDW Coeff of Mele 15.1 H, Plt Count 259, MPV 9.9, Immature Gran % (Auto) 1.000 H, Neut % (Auto) 96.1 H, Lymph % (Auto) 1.0 L, [place] % (Auto) 1.3, Eos % (Auto) 0.1, Baso % (Auto) 0.5, Absolute Neuts (auto) 18.0 H, Absolute Lymphs (auto) 0.18 L, Nucleated RBC % 0, Diff Path Review June, Platelet Estimate ADEQUATE, RBC Morphology NORM C+C 06/12/22 10:15: PT 13.1, INR 1.0, APTT 30.7 06/12/22 10:15: Sodium 129 L, Potassium 3.9, Chloride 94 L, Carbon Dioxide 27.0, Anion Gap 8, BUN 23 H, Creatinine 1.38 H, Estim Creat Clear Calc 67.11, Est GFR (MDRD) Af Amer 50 L, Est GFR (MDRD) Non-Af 42 L, BUN/Creatinine Ratio 16.7, Glucose 270 H, Calcium 8.5, Total Bilirubin 0.50, AST 29, ALT 7 L, Alkaline Phosphatase 233 H, Total Protein 6.8, Albumin 1.9 L, Globulin 4.9 H, Albumin/Globulin Ratio 0.4 L 06/12/22 10:15: Lactic Acid 3.6 H* 06/12/22 13:45: Urine Color Yellow, Urine Clarity Cloudy, Urine pH 6.0, Ur Specific [place] 1.015, Urine Protein 100 H, Urine Glucose (UA) 50 H, Urine Ketones 5 H, Urine Occult Blood 250 H, Urine Nitrite Negative, Urine Bilirubin 1 H, Urine Urobilinogen 1 H, Ur Leukocyte Esterase 500 H, Urine RBC 25-50 SEEN, Urine WBC 25-50 SEEN, Ur Squamous Epith Cells 0-5 SEEN, Urine Bacteria 2+, Urine Mucus 0 SEEN 06/12/22 15:45: Lactic Acid 1.5 06/12/22 16:57: POC Glucose 296 H 06/12/22 21:00: POC Glucose 270 H 06/13/22 03:41: WBC 15.4 H, RBC 2.92 L, Hgb 8.6 L, Hct 26.9 L, MCV 92.1, MCH 29.5, MCHC 32.0, RDW Std Deviation 50.8 H, RDW Coeff of Mele 15.1 H, Plt Count 195, MPV 9.7, Immature Gran % (Auto) 1.300 H, Neut % (Auto) 88.0 H, Lymph % (Auto) 4.2 L, [place] % (Auto) 5.4, Eos % (Auto) 0.8, Baso % (Auto) 0.3, Absolute Neuts (auto) 13.6 H, Absolute Lymphs (auto) 0.65 L, Nucleated RBC % 0 06/13/22 03:41: Sodium 137, Potassium 3.0 L, Chloride 107, Carbon Dioxide 24.0, Anion Gap 6, BUN 23 H, Creatinine 0.92, Estim Creat Clear Calc 97.60, Est GFR (MDRD) Af Amer 80, Est GFR (MDRD) Non-Af 66, BUN/Creatinine Ratio 24.9 H, Glucose 189 H, Calcium 7.3 L, Total Bilirubin 0.10 L, AST 20, ALT 9 L, Alkaline Phosphatase 110, Total Protein 5.0 L, Albumin 1.3 L, Globulin 3.7, Albumin/Globulin Ratio 0.4 L, TSH 1.95 Radiography Diagnostic Testing: Radiology Impression Chest X-Ray 06/12/22 11:40 IMPRESSION: Degenerative changes, as described above. No demonstrated acute cardiopulmonary process. Electronically Signed: Eduard Jarquin MD at 11:58 EDT Reading Location ID and State: [facility] / ID , Service support , Venous Doppler Study 06/12/22 13:39 Interpretation Summary There is no evidence of left lower extremity deep vein thrombosis. Left great saphenous vein appears patent and compressible segmentally. Normal flow patterns right common femoral vein Poor technical quality as noted. Ordering Physician: Nicolasa Stokes Referring Physician: Sheri King Performed By: Matthew Medina T Chest X-Ray 06/12/22 14:50 IMPRESSION: New right IJ catheter. Electronically Signed: Eduard Jarquin MD at 15:43 EDT Reading Location ID and State: [address] [place] [address] , Service support , Physical Exam Const alert, oriented x3 and no apparent distress Constitutional Narrative: Morbidly obese. HEENT normocephalic and head/scalp atraumatic Eyes EOMs intact bilaterally Neck supple and No nodes Neck Narrative: Right IJ is clean, dry and intact General: CVC in place Resp normal air movement, no use of accessory muscles and clear to auscultation bilaterally Auscultation: diminished lung sounds diffuse (Secondary to body habitus); Negative for rales, rhonchi or wheezes Cardio regular rate, regular rhythm, S1 normal heart sound, S2 normal heart sound, no murmurs, no rub and no gallops GI non-tender, non-distended and hepatosplenomegaly Extremity General Extremity: edema Skin Skin Narrative: Significant lichenification of bilateral lower extremities. Diminished pulses noted. Neuro CN's II-XII intact bilaterally and moves all extremities Psych cooperative and affect normal Charges/Coding Procedures Hospitalists Procedures: 61127 Critial Care 1st Hr
[2022-06-13] MEDS: Potassium Chloride 20mEq/100mL 20 MEQ/100 ML IV.SOLN. 100 MEQ IV BOLUS ×2 (07:58→12:45)
[2022-06-13] MEDS: Potassium Chloride Oral Tablet 20 MEQ 40 MEQ PO (08:02)
[2022-06-13] MEDS: DULoxetine Hcl 30 MG Capsule PO ×2 (08:05→20:48)
[2022-06-13] MEDS: Pantoprazole Sodium 40 MG Tablet PO (08:05)
[2022-06-13] MEDS: Nystatin Powder 15gm Bottle 1 APPLIC TOPICAL ×2 (08:06→20:45)
[2022-06-13] MEDS: Menthol/Lanolin/Calamine/Znox 113 GM Tube 1 APPLIC TOPICAL ×2 (08:07→20:46)
[2022-06-13] MEDS: Insulin Lispro 100 UNIT/ML INSULN.PEN SC ×4 (08:08→20:46)
--- NOTE | 2022-06-13 10:04 | PN.HOSP_ITS ---
Reason for Visit Reason for Visit: Diagnoses Sepsis, unspecified organism (06/12/22) Morbid (severe) obesity due to excess calories (06/12/22) Multiple sclerosis (06/12/22) Urinary tract infection, site not specified (06/12/22) Severe sepsis with septic shock (06/12/22) Subjective Subjective Feeling better today compared to yesterday. Overall in good spirits. Remains on low-dose Levophed at 4. Is +5 L however not hypoxic or respiratory comp romised Objective Data Objective Data Vital Signs: Vital Signs Temp Pulse Resp BP Pulse Ox O2 Del Method 97 F L 79 19 H 102/68 96 Room Air 06/13/22 08:13 06/13/22 08:13 06/13/22 08:13 06/13/22 08:13 06/13/22 08:13 06/13/22 08:13 Oxygen Delivery Method Room Air Weight: 96.5 kg Body Mass Index (BMI) 44.4 Intake & Output: Intake and Output for Last 24 Hours 06/11/22 06/12/22 06/13/22 23:59 23:59 23:59 Intake Total 4483.12 / 4485.47 1184.95 / 1184.95 Output Total 350 / 600 250 / 250 Balance 4133.12 / 3885.47 934.95 / 934.95 Lab / Micro Data Result Diagrams: 06/13/22 03:41 06/13/22 03:41 Labs: Laboratory Results - last 24 hr 06/12/22 10:15: WBC 18.7 H, RBC 3.91 L, Hgb 11.5 L, Hct 36.2 L, MCV 92.6, MCH 29.4, MCHC 31.8 L, RDW Std Deviation 51.3 H, RDW Coeff of Mele 15.1 H, Plt Count 259, MPV 9.9, Immature Gran % (Auto) 1.000 H, Neut % (Auto) 96.1 H, Lymph % (Auto) 1.0 L, [place] % (Auto) 1.3, Eos % (Auto) 0.1, Baso % (Auto) 0.5, Absolute Neuts (auto) 18.0 H, Absolute Lymphs (auto) 0.18 L, Nucleated RBC % 0, Diff Path Review June, Platelet Estimate ADEQUATE, RBC Morphology NORM C+C 06/12/22 10:15: PT 13.1, INR 1.0, APTT 30.7 06/12/22 10:15: Sodium 129 L, Potassium 3.9, Chloride 94 L, Carbon Dioxide 27.0, Anion Gap 8, BUN 23 H, Creatinine 1.38 H, Estim Creat Clear Calc 67.11, Est GFR (MDRD) Af Amer 50 L, Est GFR (MDRD) Non-Af 42 L, BUN/Creatinine Ratio 16.7, Glucose 270 H, Calcium 8.5, Total Bilirubin 0.50, AST 29, ALT 7 L, Alkaline Phosphatase 233 H, Total Protein 6.8, Albumin 1.9 L, Globulin 4.9 H, Albumin/Globulin Ratio 0.4 L 06/12/22 10:15: Lactic Acid 3.6 H* 06/12/22 13:45: Urine Color Yellow, Urine Clarity Cloudy, Urine pH 6.0, Ur Specific [place] 1.015, Urine Protein 100 H, Urine Glucose (UA) 50 H, Urine Ketones 5 H, Urine Occult Blood 250 H, Urine Nitrite Negative, Urine Bilirubin 1 H, Urine Urobilinogen 1 H, Ur Leukocyte Esterase 500 H, Urine RBC 25-50 SEEN, Urine WBC 25-50 SEEN, Ur Squamous Epith Cells 0-5 SEEN, Urine Bacteria 2+, Urine Mucus 0 SEEN 06/12/22 15:45: Lactic Acid 1.5 06/12/22 16:57: POC Glucose 296 H 06/12/22 21:00: POC Glucose 270 H 06/13/22 03:41: WBC 15.4 H, RBC 2.92 L, Hgb 8.6 L, Hct 26.9 L, MCV 92.1, MCH 29.5, MCHC 32.0, RDW Std Deviation 50.8 H, RDW Coeff of Mele 15.1 H, Plt Count 195, MPV 9.7, Immature Gran % (Auto) 1.300 H, Neut % (Auto) 88.0 H, Lymph % (Auto) 4.2 L, [place] % (Auto) 5.4, Eos % (Auto) 0.8, Baso % (Auto) 0.3, Absolute Neuts (auto) 13.6 H, Absolute Lymphs (auto) 0.65 L, Nucleated RBC % 0 06/13/22 03:41: Sodium 137, Potassium 3.0 L, Chloride 107, Carbon Dioxide 24.0, Anion Gap 6, BUN 23 H, Creatinine 0.92, Estim Creat Clear Calc 97.60, Est GFR (MDRD) Af Amer 80, Est GFR (MDRD) Non-Af 66, BUN/Creatinine Ratio 24.9 H, Glucose 189 H, Calcium 7.3 L, Total Bilirubin 0.10 L, AST 20, ALT 9 L, Alkaline Phosphatase 110, Total Protein 5.0 L, Albumin 1.3 L, Globulin 3.7, Albumin/Globulin Ratio 0.4 L, TSH 1.95 Radiography Diagnostic Testing: Radiology Impression Chest X-Ray 06/12/22 11:40 IMPRESSION: Degenerative changes, as described above. No demonstrated acute cardiopulmonary process. Electronically Signed: Eduard Jarquin MD at 11:58 EDT , Venous Doppler Study 06/12/22 13:39 Interpretation Summary There is no evidence of left lower extremity deep vein thrombosis. Left great saphenous vein appears patent and compressible segmentally. Normal flow patterns right common femoral vein Poor technical quality as noted. Ordering Physician: Nicolasa Stokes Referring Physician: Sheri King Performed By: Matthew Medina, RVT Chest X-Ray 06/12/22 14:50 IMPRESSION: New right IJ catheter. Electronically Signed: Eduard Jarquin MD at 15:43 EDT , Physical Exam Narrative General: Alert, oriented, no apparent distress HEENT: Atraumatic Eyes: Anicteric, normal conjunctiva, extraocular movements grossly intact Neck: Supple Respiratory: Clear to auscultation bilaterally, normal respiratory effort Cardiovascular: Regular rate and rhythm GI: Soft, nontender, nondistended Extremities: Lower extremity edema left greater than right Musculoskeletal: Moves upper extremities, has MS and laying in bed Neuro: Baseline mainly bedridden secondary to MS, no other overt focal complaints appreciated Skin: Bilateral lower extremity changes Psych: Very cooperative and pleasant Assessment & Plan Assessment/Plan (1) Septic shock: PLAN: Plan #Septic shock secondary to Pseudomonas UTI -Received 30 cc/kg fluid resuscitation and remained hypotensive and right IJ was placed and she was started on Levophed and sent to the ICU -White blood cell count 18 in the ED and lactic acid 3.6. Lactic acid normalized to 1.5 after sepsis fluid protocol and Levophed -Urine culture from 411 growing Pseudomonas sensitive to all but fluoroquinolone s and another gram-negative alfie that has not yet speciated -Assistant Women'S Rowing [employer] consulted -Infectious disease consulted -Continue cefepime -Blood cultures obtained -06/13: On 4 mcg of levo, presently being weaned off, +5 L however no respiratory compromise. We will hold off on further fluids will also hold off on any Lasix. Continue cefepime, awaiting blood cultures urine culture with second organism Proteus mirabilis which is also sensitive to cefepime, continue cefepime #Anemia, unclear chronicity -Hemoglobin 8.6 down from 11.5 however no evidence of bleeding and patient is up 5 L, suspect delusional -We will obtain iron studies and reticulocyte count as well as hemolysis labs #EDWINA on CKDIIIb -Likely secondary to #1, avoid nephrotoxic agents, has received fluid hydration -Holding Lasix -06/13: Significantly improved with hydration #DMII -Cont long acting at 40u -Hold oral home meds -SSI and glucose checks #MS/Chronic pain/Chronic neal -OT consulted -Neal changed -Supportive care #hypothyroidism -Cont synthroid -TSH in am #DVT ppx: Heparin subcu Nicolasa Stokes MD Time spent in the patient's overall evaluation,decision-making process, review of diagnostic data, adjustment of management, discussion with other providers, nursing nursing and ancillary staff involved in patient's care documentation, 30 minutes Charges/Coding Visit Charges Inpatient E&M: 06434 Subs Hosp L2
[2022-06-13] MEDS: 0.9% Saline Lock 10 ML Syringe IV (10:55)
[2022-06-13 11:03] LABS: Platelet Count 195 K/mm3 (150-450); RET-HE 28.5 pg (30-35); Reticulocyte Count 1.68 % (0.5-1.5)
[2022-06-13 11:11] LABS: Bedside Glucose 170 mg/dL (74-106)
[2022-06-13 11:16] LABS: Ferritin 617 ng/mL (8-252); Iron 29 ug/dL (50-170); Iron Binding Capacity,Total 119 ug/dL (250-450); LDH 147 U/L (84-246); PERCENT IRON SATURATION 24.4 % (15.0-55.0)
[2022-06-13 16:26] LABS: Bedside Glucose 214 mg/dL (74-106)
--- NOTE | 2022-06-13 16:27 | CASEMGMT ---
Social Work SW met w/pt in room, daughter Marla and son in law Ty in room also. SW spoke w/pt and family in room in regard to prior level of function and anticipated discharge plan. PCP: Dr. King--visiting physician with [facility]. Other physician: Dr. De Dios, family physician Insurance: [facility] Pharmacy: [facility] [place] Betty LNOK: Three children, , son in law, daughter in law Living arrangements/prior level of function: Pt lives home w/ in a one story home. Pt's family helps pt with all ADLs. Pt's children live nearby. Pt's daughter comes in 5 days per week, 3 hours per day. Pt is not able to walk. Daughter cooks or the neighbor cooks. If pt has an appt she arranges transport ahead of time w/[facility]. is with pt in the evening and is available to help pt. DME: Pt has ye lift, 3 power chairs, inflatable tub, hospital bed. SNF/HHC: Pt is current w/[facility] for catheter care. Pt has aide services through [facility], Wendi Browne is her telephonic case manager. Daughter fulfills the aide hours. Pt has been to SNF before. Plan: Home w/resumption of HHC and aide services. Pt spoke about her UTI and the reason she was not able to molded goods spot picker the medication, she states the drug store said she may be allergic, and was not able to get the medication. Pt also spoke about her legs being dirty, pt states her daughter will bathe her but she was not allowing it recently due to not feeling well. Pt explains she knows things are not perfect at home but she can get the same care at home as in a fdc, and would much rather be home w/family. Pt also asked about completing LW/POA papers, SW explained will have SW Wednesday follow up. SW will continue to follow. NUNU Motley
[2022-06-13] MEDS: Insulin Glargine-YFGN 100 UNIT/ML Pen 40 UNIT SC (20:47)
[2022-06-13] MEDS: Atorvastatin Calcium 80 MG Tablet PO (20:48)
[2022-06-13] MEDS: Acetaminophen 325 MG Tablet 650 MG PO (20:54)
[2022-06-13 21:16] LABS: Bedside Glucose 168 mg/dL (74-106)
[2022-06-14] VITALS (23 sets, daily range): BP systolic 74–97; BP diastolic 47–64; PULSE 60–99; RESP 14–24; TEMP 36.1–37.4; O2SAT 93–100; BMI 45.5
[2022-06-14 03:11] LABS: Absolute Lymphocyte Count 0.82 X10^3/uL (0.83-4.51); Absolute Neutrophil Count 10.3 X10^3/uL (2.0-7.7); Basophil# 0.06 X10^3/uL; Basophil% 0.5 % (0-1); Eosinophil# 0.14 X10^3/uL; Eosinophils% 1.1 % (0-5); Hematocrit 25.6 % (37-47); Hemoglobin 8.1 g/dL (12.0-15.0); Lymphocyte # 0.82 X10^3/ul (0.83-4.51); Lymphocyte % 6.6 % (19-41); Mean Corp Hgb Conc 31.6 g/dL (32-36); Mean Corpuscular Hgb 29.3 pg (27.0-32.0); Mean Corpuscular Volume 92.8 fL (81-99); Mean Platelet Vol. 10.1 fl (6.2-12.0); Monocyte# 0.76 X10^3/uL; Monocyte% 6.1 % (0-10); NRBC Flagged by Analyzer 0 % (0-5); Neutrophil # 10.33 X10^3/uL (2.7-7.7); Neutrophil % 83.5 % (47-70); Platelet Count 178 K/mm3 (150-450); RBC Distribution Width CV 15.4 % (11.6-14.6); RBC Distribution Width SD 52.4 fl (35.1-43.9); Red Blood Count 2.76 M/mm3 (4.2-5.4); White Blood Count 12.4 K/mm3 (4.4-11.0)
[2022-06-14 03:50] LABS: ALB/GLOB Ratio 0.3 RATIO (0.9-2.4); AST(SGOT) 15 U/L (15-37); Alanine Aminotransfer ALT/SGPT 9 U/L (13-56); Albumin, Serum 1.2 g/dL (3.2-5.0); Alkaline Phosphatase 88 U/L (45-117); Anion Gap 4 (5-15); BUN 23 mg/dL (7-18); BUN/Creat Ratio 23.8 RATIO (10-20); Calcium,Total 7.5 mg/dL (8.5-10.1); Chloride 108 mmol/L (98-107); Creatinine, Serum 0.97 mg/dL (0.55-1.02); EST Glomerular Filtration Rate 63 mL/min (>60); Est Glom Filt Rate - Afr Amer 76 mL/min (>60); Estimated Creatinine Clearance 95.13 ml/min; Globulin 3.7 g/dL (2.2-4.2); Glucose 94 mg/dL (74-106); Potassium 4.2 mmol/L (3.5-5.1); Protein, Total 4.9 g/dL (6.4-8.2); Sodium Level 135 mmol/L (136-145)
[2022-06-14 03:52] LABS: Magnesium 1.7 mg/dL (1.6-2.6); Phosphorus 1.5 mg/dL (2.5-4.9)
[2022-06-14] MEDS: Heparin Injection (Vial) 5,000 UNIT/ML VIAL 5000 UNIT SC ×3 (05:42→21:41)
[2022-06-14] MEDS: Levothyroxine 50 MCG Tablet PO (05:42)
[2022-06-14] MEDS: Acetaminophen 325 MG Tablet 650 MG PO ×3 (05:45→21:38)
--- NOTE | 2022-06-14 06:44 | PN.CC_ITS ---
Assessment & Plan Assessment/Plan (1) Septic shock: (2) Complicated UTI (urinary tract infection): (3) Morbid obesity: (4) Multiple sclerosis: PLAN: Plan RECOMMENDATIONS: 1. No further fluid boluses. 2. Continue with cefepime 3. Okay to leave the intensive care unit from my perspective 4. Blood sugars reasonably controlled. Okay to continue Lantus 5. Likely okay to challenge with Lasix tomorrow 6. Hemodynamically stable on room air. Will sign off from a critical care perspective IMPRESSIONS: 1. Septic shock secondary to UTI secondary to Pseudomonas and Proteus secondary to chronic Valenzuela Resolved. Multiple previous infections with variable sensitivities. Cefepime appears to be a good choice using these cultures. Patient has received fluid boluses with marginal improvement. We will hold on further fluid boluses of possible. Valenzuela has been changed. Patient does have an increase in baseline creatinine indicating endorgan damage, along with an elevated lactic acid. 2. Acute kidney injury on CKD stage IIIb Resolved. Baseline creatinine appears to be 0.8. Clinical suspicion for prerenal etiology. This would be exacerbated by baseline Lasix. We will have to monitor medications for accumulation if not improving in the near future. No indication for renal replacement therapy at this time. 3. Morbid obesity/MS/chronic pain syndrome/hypothyroidism Complicates care, management, recovery and prognosis. Patient reportedly immobile at baseline. We will continue to monitor closely. High clinical suspicion for obstructive sleep apnea. Cannot exclude the need for empiric BiPAP therapy. Patient has never had an echocardiogram, but would be at risk for diastolic congestive heart failure Subjective Subjective Patient did well overnight. Patient has been off of Levophed since yesterday. Patient is not reporting any chest pain or abdominal pain. Patient tolerating room air well. Objective Data Objective Data Vital Signs: Vital Signs Temp Pulse Resp BP Pulse Ox O2 Del Method 37.0 C 60 17 74/64 L 93 Room Air 06/14/22 03:00 06/14/22 06:00 06/14/22 06:00 06/14/22 06:00 06/14/22 06:00 06/14/22 06:00 Oxygen Delivery Method Room Air Weight: 98.8 kg Body Mass Index (BMI) 45.5 Intake & Output: Intake and Output for Last 24 Hours 04/14/23 04/15/23 04/16/23 23:59 23:59 23:59 Intake Total 4483.12 / 4485.47 3125.57 / 3125.57 Output Total 350 / 600 1250 / 1250 400 / 400 Balance 4133.12 / 3885.47 1875.57 / 1875.57 -400 / -400 Lab / Micro Data Attestation: I reviewed the patient's lab results. Result Diagrams: 06/14/22 03:02 06/14/22 03:02 Labs: Laboratory Results - last 24 hr 06/13/22 10:40: Retic Count 1.68 H, Immature Retic Fraction 5.30, Retic Hgb Equivalent 28.5 L 06/13/22 10:40: Iron 29 L, TIBC 119 L, Iron Saturation 24.4, Ferritin 617 H, Lactate Dehydrogenase 147 06/13/22 10:49: POC Glucose 170 H 06/13/22 15:58: POC Glucose 214 H 06/13/22 20:44: POC Glucose 168 H 06/14/22 03:02: WBC 12.4 H, RBC 2.76 L, Hgb 8.1 L, Hct 25.6 L, MCV 92.8, MCH 29.3, MCHC 31.6 L, RDW Std Deviation 52.4 H, RDW Coeff of Mele 15.4 H, Plt Count 178, MPV 10.1, Immature Gran % (Auto) 2.200 H, Neut % (Auto) 83.5 H, Lymph % (Auto) 6.6 L, [place] % (Auto) 6.1, Eos % (Auto) 1.1, Baso % (Auto) 0.5, Absolute Neuts (auto) 10.3 H, Absolute Lymphs (auto) 0.82 L, Nucleated RBC % 0 06/14/22 03:02: Sodium 135 L, Potassium 4.2, Chloride 108 H, Carbon Dioxide 23.0, Anion Gap 4 L, BUN 23 H, Creatinine 0.97, Estim Creat Clear Calc 95.13, Est GFR (MDRD) Af Amer 76, Est GFR (MDRD) Non-Af 63, BUN/Creatinine Ratio 23.8 H , Glucose 94, Calcium 7.5 L, Total Bilirubin 0.30, AST 15, ALT 9 L, Alkaline Phosphatase 88, Total Protein 4.9 L, Albumin 1.2 L, Globulin 3.7, Albumin/Globulin Ratio 0.3 L 06/14/22 03:02: Phosphorus 1.5 L, Magnesium 1.7 Micro: Microbiology 06/12/22 10:50 Blood Culture (Wb) - Right Wrist Blood Culture - Preliminary No growth in 48 hours. 06/12/22 10:37 Blood Culture (Wb) - Left Forearm Blood Culture - Preliminary No growth in 48 hours. Physical Exam Const alert, oriented x3 and no apparent distress Constitutional Narrative: Morbidly obese. HEENT normocephalic and head/scalp atraumatic Eyes EOMs intact bilaterally Neck supple and No nodes Neck Narrative: Right IJ is clean, dry and intact General: CVC in place Resp normal air movement, no use of accessory muscles and clear to auscultation bilaterally Auscultation: diminished lung sounds diffuse (Secondary to body habitus); Negative for rales, rhonchi or wheezes Cardio regular rate, regular rhythm, S1 normal heart sound, S2 normal heart sound, no murmurs, no rub and no gallops GI non-tender, non-distended and hepatosplenomegaly Extremity General Extremity: edema Skin Skin Narrative: Significant lichenification of bilateral lower extremities. Diminished pulses noted. Neuro CN's II-XII intact bilaterally and moves all extremities Psych cooperative and affect normal Charges/Coding Visit Charges Inpatient E&M: 45122 Subs Hosp L2
--- NOTE | 2022-06-14 07:38 | PCM.PN.HOSP ---
Reason for Visit Reason for Visit: Diagnoses Sepsis, unspecified organism (06/12/22) Morbid (severe) obesity due to excess calories (06/12/22) Multiple sclerosis (06/12/22) Urinary tract infection, site not specified (06/12/22) Severe sepsis with septic shock (06/12/22) Subjective Subjective Feeling slightly better today overall but is having achiness without her baclofen. Objective Data Objective Data Vital Signs: Vital Signs Temp Pulse Resp BP Pulse Ox O2 Del Method 98.6 F 83 18 86/52 L 97 Room Air 06/14/22 03:00 06/14/22 07:00 06/14/22 07:00 06/14/22 07:00 06/14/22 07:00 06/14/22 07:00 Oxygen Delivery Method Room Air Weight: 98.8 kg Body Mass Index (BMI) 45.5 Intake & Output: Intake and Output for Last 24 Hours 06/12/22 06/13/22 06/14/22 23:59 23:59 23:59 Intake Total 4483.12 / 4485.47 3125.57 / 3125.57 Output Total 350 / 600 1250 / 1250 400 / 400 Balance 4133.12 / 3885.47 1875.57 / 1875.57 -400 / -400 Lab / Micro Data Result Diagrams: 06/14/22 03:02 06/14/22 03:02 Labs: Laboratory Results - last 24 hr 06/13/22 10:40: Retic Count 1.68 H, Immature Retic Fraction 5.30, Retic Hgb Equivalent 28.5 L 06/13/22 10:40: Iron 29 L, TIBC 119 L, Iron Saturation 24.4, Ferritin 617 H, Lactate Dehydrogenase 147 06/13/22 10:49: POC Glucose 170 H 06/13/22 15:58: POC Glucose 214 H 06/13/22 20:44: POC Glucose 168 H 06/14/22 03:02: WBC 12.4 H, RBC 2.76 L, Hgb 8.1 L, Hct 25.6 L, MCV 92.8, MCH 29.3, MCHC 31.6 L, RDW Std Deviation 52.4 H, RDW Coeff of Mele 15.4 H, Plt Count 178, MPV 10.1, Immature Gran % (Auto) 2.200 H, Neut % (Auto) 83.5 H, Lymph % (Auto) 6.6 L, [place] % (Auto) 6.1, Eos % (Auto) 1.1, Baso % (Auto) 0.5, Absolute Neuts (auto) 10.3 H, Absolute Lymphs (auto) 0.82 L, Nucleated RBC % 0 06/14/22 03:02: Sodium 135 L, Potassium 4.2, Chloride 108 H, Carbon Dioxide 23.0, Anion Gap 4 L, BUN 23 H, Creatinine 0.97, Estim Creat Clear Calc 95.13, Est GFR (MDRD) Af Amer 76, Est GFR (MDRD) Non-Af 63, BUN/Creatinine Ratio 23.8 H, Glucose 94, Calcium 7.5 L, Total Bilirubin 0.30, AST 15, ALT 9 L, Alkaline Phosphatase 88, Total Protein 4.9 L, Albumin 1.2 L, Globulin 3.7, Albumin/Globulin Ratio 0.3 L 06/14/22 03:02: Phosphorus 1.5 L, Magnesium 1.7 Micro: Microbiology 06/12/22 10:50 Blood Culture (Wb) - Right Wrist Blood Culture - Preliminary No growth in 48 hours. 06/12/22 10:37 Blood Culture (Wb) - Left Forearm Blood Culture - Preliminary No growth in 48 hours. Physical Exam Narrative General: Alert, oriented, no apparent distress HEENT: Atraumatic Eyes: Anicteric, normal conjunctiva, extraocular movements grossly intact Neck: Supple Respiratory: Clear to auscultation bilaterally, normal respiratory effort Cardiovascular: Regular rate and rhythm GI: Soft, nontender, nondistended Extremities: Lower extremity edema left greater than right Musculoskeletal: Moves upper extremities, has MS and laying in bed Neuro: Baseline mainly bedridden secondary to MS, no other overt focal complaints appreciated Skin: Bilateral lower extremity changes Psych: Very cooperative and pleasant Assessment & Plan Assessment/Plan (1) Septic shock: PLAN: Plan #Septic shock secondary to Pseudomonas UTI -Received 30 cc/kg fluid resuscitation and remained hypotensive and right IJ was placed and she was started on Levophed and sent to the ICU -White blood cell count 18 in the ED and lactic acid 3.6. Lactic acid normalized to 1.5 after sepsis fluid protocol and Levophed -Urine culture from 411 growing Pseudomonas sensitive to all but fluoroquinolones and another gram-negative alfie that has not yet speciated -Optical Lab Technician consulted -Infectious disease consulted -Continue cefepime -Blood cultures obtained -06/13: On 4 mcg of levo, presently being weaned off, +5 L however no respiratory compromise. We will hold off on further fluids will also hold off on any Lasix. Continue cefepime, awaiting blood cultures urine culture with second organism Proteus mirabilis which is also sensitive to cefepime, continue cefepime -06/13: Doing well on cefepime, off of Levophed. Blood cultures no growth to date. Can consider challenging with Lasix tomorrow. Presently no respiratory compromise but is up 6 L #Anemia, unclear chronicity -Hemoglobin 8.6 down from 11.5 however no evidence of bleeding and patient is up 5 L, suspect delusional -We will obtain iron studies and reticulocyte count as well as hemolysis labs -06/13: Similar to yesterday, continue to monitor. High suspicion for dilutional #EDWINA on CKDIIIb -Likely secondary to #1, avoid nephrotoxic agents, has received fluid hydration -Holding Lasix -06/13: Significantly improved with hydration #DMII -Cont long acting at 40u -Hold oral home meds -SSI and glucose checks -06/13: Significantly improving with improvement in infection and actually had a 70 reading, will decrease long-acting slightly to compensate #MS/Chronic pain/Chronic neal -OT consulted -Neal changed -Supportive care #hypothyroidism -Cont synthroid -TSH in am #DVT ppx: Heparin subcu Nicolasa Stokes MD Time spent in the patient's overall evaluation,decision-making process, review of diagnostic data, adjustment of management, discussion with other providers, nursing nursing and ancillary staff involved in patient's care documentation, 30 minutes Charges/Coding Visit Charges Inpatient E&M: 09082 Subs Hosp L2
[2022-06-14 08:45] LABS: Bedside Glucose 74 mg/dL (74-106)
[2022-06-14] MEDS: Arthritis Pain Compound 60 CLICK TUBE TOPICAL ×2 (10:43→21:43)
[2022-06-14] MEDS: Nystatin Powder 15gm Bottle 1 APPLIC TOPICAL ×2 (10:44→21:39)
[2022-06-14] MEDS: DULoxetine Hcl 30 MG Capsule PO ×2 (10:44→21:42)
[2022-06-14] MEDS: Pantoprazole Sodium 40 MG Tablet PO (10:45)
[2022-06-14] MEDS: Menthol/Lanolin/Calamine/Znox 113 GM Tube 1 APPLIC TOPICAL ×2 (10:45→21:39)
[2022-06-14] MEDS: 0.9% Saline Lock 10 ML Syringe IV (10:49)
[2022-06-14 12:15] LABS: Bedside Glucose 129 mg/dL (74-106)
[2022-06-14 12:15] LABS: Haptoglobin 358 mg/dL (33-346)
[2022-06-14 17:30] LABS: Bedside Glucose 138 mg/dL (74-106)
[2022-06-14] MEDS: Atorvastatin Calcium 80 MG Tablet PO (21:40)
[2022-06-14] MEDS: Insulin Glargine-YFGN 100 UNIT/ML Pen 35 UNIT SC (21:40)
[2022-06-14 22:20] LABS: Bedside Glucose 140 mg/dL (74-106)
[2022-06-15] VITALS (7 sets, daily range): BP systolic 89–95; BP diastolic 52–63; PULSE 80–93; RESP 14–19; TEMP 36.1–36.6; O2SAT 95–96; BMI 45.6
[2022-06-15] MEDS: 0.9% Saline Lock 10 ML Syringe IV (04:38)
[2022-06-15] MEDS: Acetaminophen 325 MG Tablet 650 MG PO (04:49)
[2022-06-15 04:52] LABS: Absolute Lymphocyte Count 0.82 X10^3/uL (0.83-4.51); Absolute Neutrophil Count 8.8 X10^3/uL (2.0-7.7); Basophil# 0.08 X10^3/uL; Basophil% 0.7 % (0-1); Eosinophil# 0.08 X10^3/uL; Eosinophils% 0.7 % (0-5); Hematocrit 27.6 % (37-47); Hemoglobin 8.8 g/dL (12.0-15.0); Lymphocyte # 0.82 X10^3/ul (0.83-4.51); Lymphocyte % 7.5 % (19-41); Mean Corp Hgb Conc 31.9 g/dL (32-36); Mean Corpuscular Hgb 29.2 pg (27.0-32.0); Mean Corpuscular Volume 91.7 fL (81-99); Mean Platelet Vol. 10.2 fl (6.2-12.0); Monocyte# 0.87 X10^3/uL; NRBC Flagged by Analyzer 0 % (0-5); Neutrophil # 8.77 X10^3/uL (2.7-7.7); Neutrophil % 80.7 % (47-70); Platelet Count 249 K/mm3 (150-450); RBC Distribution Width CV 15.5 % (11.6-14.6); RBC Distribution Width SD 51.5 fl (35.1-43.9); Red Blood Count 3.01 M/mm3 (4.2-5.4); White Blood Count 10.9 K/mm3 (4.4-11.0)
[2022-06-15] MEDS: Levothyroxine 50 MCG Tablet PO (06:31)
[2022-06-15] MEDS: Heparin Injection (Vial) 5,000 UNIT/ML VIAL 5000 UNIT SC ×3 (06:31→20:22)
[2022-06-15 06:39] LABS: ALB/GLOB Ratio 0.4 RATIO (0.9-2.4); AST(SGOT) 16 U/L (15-37); Alanine Aminotransfer ALT/SGPT 10 U/L (13-56); Albumin, Serum 1.4 g/dL (3.2-5.0); Alkaline Phosphatase 93 U/L (45-117); Anion Gap 4 (5-15); BUN 25 mg/dL (7-18); BUN/Creat Ratio 25.5 RATIO (10-20); Chloride 108 mmol/L (98-107); Creatinine, Serum 0.98 mg/dL (0.55-1.02); EST Glomerular Filtration Rate 61 mL/min (>60); Est Glom Filt Rate - Afr Amer 74 mL/min (>60); Globulin 3.9 g/dL (2.2-4.2); Glucose 67 mg/dL (74-106); Protein, Total 5.3 g/dL (6.4-8.2); Sodium Level 134 mmol/L (136-145)
[2022-06-15 07:00] LABS: Bedside Glucose 58 mg/dL (74-106)
[2022-06-15] MEDS: Nystatin Powder 15gm Bottle 1 APPLIC TOPICAL ×2 (09:04→20:22)
[2022-06-15] MEDS: Menthol/Lanolin/Calamine/Znox 113 GM Tube 1 APPLIC TOPICAL ×2 (09:04→20:22)
[2022-06-15] MEDS: Arthritis Pain Compound 60 CLICK TUBE TOPICAL ×2 (09:04→20:23)
[2022-06-15] MEDS: Pantoprazole Sodium 40 MG Tablet PO (09:04)
[2022-06-15] MEDS: DULoxetine Hcl 30 MG Capsule PO ×2 (09:04→20:20)
--- NOTE | 2022-06-15 12:26 | WOUNDNOTE ---
wound photo: bilateral gluteal creases
[2022-06-15 12:45] LABS: Bedside Glucose 86 mg/dL (74-106)
--- NOTE | 2022-06-15 14:31 | CON.PCM.ID_ITS ---
Assessment & Plan Assessment/Plan (1) Septic shock: (2) Morbid obesity: (3) Complicated UTI (urinary tract infection): PLAN: Off pressor. Ucx with pseudomonas and proteus. Cont cefepime, overall much improved. No po options for abx. Will follow, thank you HPI Consult Data Date of Consult: 06/15/22 HPI Narrative Reason for Consultation: septic shock HPI Narrative: MARIA D SMITH, is a 61 F with h/o obesity, MS, who about 2 weeks ago developed uti. Has chronic neal in place. C/o fever, chills, abd pain, nausea. Came to ED, given ceftriaxone and written for augmentin, but unable to fill rx. Came back to ED 06/12, admitted to icu with septic shock, started on cefepime. Feeling much better. Full ROS performed and neg except as noted above. [facility] Medical History Anxiety Bedbound delivery delivered Depression History of multiple sclerosis Lymphedema Morbid obesity Multiple sclerosis Polyneuropathy Type II diabetes mellitus Vitamin d deficiency Home Medications rosuvastatin 40 mg tablet 40 mg PO DAILY cholesterol 03/07/13 [History Last Taken 12/02/21] glimepiride 4 mg tablet 4 mg PO BID DM 12/21/19 [History Last Taken 12/02/21] levothyroxine 50 mcg tablet (Synthroid) 50 mcg PO DAILY thyroid 12/21/19 [History Last Taken 12/02/21] duloxetine 60 mg capsule,delayed release 60 mg PO BID #180 caps 06/30/21 [Rx Last Taken 12/02/21] atorvastatin 80 mg tablet 80 mg PO DAILY cholesterol 12/03/21 [History Last Taken 12/02/21] esomeprazole magnesium 40 mg capsule,delayed release 40 mg PO DAILY stomach 12/03/21 [History Last Taken 12/02/21] furosemide 40 mg tablet 40 mg PO TID fluid 12/03/21 [History Last Taken 12/02/21] furosemide 40 mg tablet 80 mg PO BREAKFAST fluid 12/03/21 [History Last Taken 12/02/21] insulin degludec 200 unit/mL (3 mL) subcutaneous pen (Tresiba FlexTouch U-200 insulin) 80 unit subcut QHS dm 12/03/21 [History Last Taken 12/02/21] metformin 1,000 mg tablet 1,000 mg PO BID DM 12/03/21 [History Last Taken 12/02/21] oxycodone-acetaminophen 5 mg-325 mg tablet 1 tab PO TID PRN MS 12/03/21 [History Last Taken 12/03/21] pregabalin 75 mg capsule 75 mg PO BID pain 12/03/21 [History Last Taken 12/02/21] semaglutide 1 mg/dose (4 mg/3 mL) subcutaneous pen injector (Ozempic) 1 mg subcut QWEEK dm 12/03/21 [History Last Taken 11/29/21] buspirone 5 mg tablet 5 mg PO BID #60 tabs 02/04/22 [Rx Last Taken Unknown] cholecalciferol (vitamin D3) 25 mcg (1,000 unit) tablet (Vitamin D3) 25 mcg PO BID 02/04/22 [History Last Taken Unknown] amoxicillin 875 mg-potassium clavulanate 125 mg tablet 875 mg PO Q12H #20 TABLETS 06/09/22 [Rx Last Taken Unknown] ondansetron 4 mg disintegrating tablet 4 mg PO Q4H PRN PRN Nausea #10 tabs 06/09/22 [Rx Last Taken Unknown] baclofen 10 mg tablet 10 mg PO Q6H PRN PRN Muscle Spasm 06/12/22 [History Last Taken Unknown] fingolimod 0.5 mg capsule ([employer]) 0.5 mg PO DAILY Check with primary doctor 06/12/22 [History Last Taken Unknown] Allergy/AdvReac Type Severity Reaction Status Date / Time ampicillin [From Unasyn] Allergy Severe Rash Verified 02/04/22 12:02 sulbactam [From Unasyn] Allergy Severe Rash Verified 02/04/22 12:02 ciprofloxacin [From Cipro] Allergy Hives Verified 02/04/22 12:02 ciprofloxacin HCl Allergy Hives Verified 02/04/22 12:02 [From Cipro] clindamycin HCl Allergy Hives Verified 02/04/22 12:02 [From Cleocin] clindamycin palmitate HCl Allergy Hives Verified 02/04/22 12:02 [From Cleocin] clindamycin phosphate Allergy Hives Verified 02/04/22 12:02 [From Cleocin] morphine Allergy Hives Verified 02/04/22 12:02 sulfamethoxazole Allergy Hives Verified 02/04/22 12:02 [From Bactrim] trimethoprim [From Bactrim] Allergy Hives Verified 02/04/22 12:02 hydromorphone HCl AdvReac messes Verified 02/04/22 12:02 [From Dilaudid] with my brain Family History Unknown Multiple sclerosis 1st cousin Father Cancer title insurance examiner, black lung, Lung CA. Mother Heart disease Diabetes Heart failure Surgical History H/O hernia repair History of cholecystectomy Social History household members: spouse Smoking Status: Never smoker alcohol intake: never substance use type: does not use Physical Exam Const alert, oriented x3 and no apparent distress General Appearance: cooperative HEENT normocephalic and head/scalp atraumatic Eyes PERRL and EOMs intact bilaterally Neck supple and No nodes Resp normal air movement and clear to auscultation bilaterally Cardio regular rate and regular rhythm GI soft to palpation, non-tender and non-distended Extremity General Extremity: edema Skin no rashes or lesions noted Neuro CN's II-XII intact bilaterally Psych mental status grossly normal Lab / Micro Data Attestation: I reviewed the patient's lab results. Result Diagrams: 06/15/22 04:45 06/15/22 04:45 Labs: Laboratory Results - last 24 hr 06/14/22 17:07: POC Glucose 138 H 06/14/22 21:37: POC Glucose 140 H 06/15/22 04:45: WBC 10.9, RBC 3.01 L, Hgb 8.8 L, Hct 27.6 L, MCV 91.7, MCH 29.2, MCHC 31.9 L, RDW Std Deviation 51.5 H, RDW Coeff of Mele 15.5 H, Plt Count 249, MPV 10.2, Immature Gran % (Auto) 2.400 H, Neut % (Auto) 80.7 H, Lymph % (Auto) 7.5 L, [place] % (Auto) 8.0, Eos % (Auto) 0.7, Baso % (Auto) 0.7, Absolute Neuts (auto) 8.8 H, Absolute Lymphs (auto) 0.82 L, Nucleated RBC % 0 06/15/22 04:45: Sodium 134 L, Potassium 4.0, Chloride 108 H, Carbon Dioxide 22.0, Anion Gap 4 L, BUN 25 H, Creatinine 0.98, Estim Creat Clear Calc 96.70, Est GFR (MDRD) Af Amer 74, Est GFR (MDRD) Non-Af 61, BUN/Creatinine Ratio 25.5 H , Glucose 67 L, Calcium 8.0 L, Total Bilirubin 0.30, AST 16, ALT 10 L, Alkaline Phosphatase 93, Total Protein 5.3 L, Albumin 1.4 L, Globulin 3.9, Albumin/G lobulin Ratio 0.4 L 06/15/22 06:33: POC Glucose 58 L 06/15/22 12:24: POC Glucose 86
--- NOTE | 2022-06-15 14:52 | CASEMGMT ---
TRUNG NICHOLSON NOTE: PT/OT notes reviewed. TRUNG NICHOLSON to room to talk w/pt re: discharge planning. Introduced self and role. Pt confirms she wishes to return home w/YOAN w/[facility]. She denies wanting list of other HHC options. Pt wishes for SN to resume and also for therapy to be added. YONA order placed for SN and PT/OT added. Guanakito SÁNCHEZ RN, CM
--- NOTE | 2022-06-15 15:56 | PN_ITS ---
Subjective Subjective Patient seen and examined. SHe feels well today and says she feels much better than when she came in. She denies any fever, chills, cough, chest pain, palpitations, dizziness, nausea, vomiting or diarrhea. REview of systems is otherwise negative. Her BP is running on the lower side of normal. Objective Data Objective Data Vital Signs: Vital Signs Temp Pulse Resp BP Pulse Ox O2 Del Method 97.9 F 80 16 94/59 L 96 Room Air 06/15/22 10:00 06/15/22 10:00 06/15/22 10:00 06/15/22 10:00 06/15/22 10:00 06/15/22 10:00 Oxygen Delivery Method Room Air Weight: 218 lb 7.649 oz Body Mass Index (BMI) 45.6 Intake & Output: Intake and Output for Last 24 Hours 06/13/22 06/14/22 06/15/22 23:59 23:59 23:59 Intake Total 3125.57 / 3125.57 1680 / 1680 440 / 440 Output Total 1250 / 1250 1175 / 1175 1275 / 1275 Balance 1875.57 / 1875.57 505 / 505 -835 / -835 Lab / Micro Data Result Diagrams: 06/15/22 04:45 06/15/22 04:45 Labs: Laboratory Results - last 24 hr 06/14/22 17:07: POC Glucose 138 H 06/14/22 21:37: POC Glucose 140 H 06/15/22 04:45: WBC 10.9, RBC 3.01 L, Hgb 8.8 L, Hct 27.6 L, MCV 91.7, MCH 29.2, MCHC 31.9 L, RDW Std Deviation 51.5 H, RDW Coeff of Mele 15.5 H, Plt Count 249, MPV 10.2, Immature Gran % (Auto) 2.400 H, Neut % (Auto) 80.7 H, Lymph % (Auto) 7.5 L, [place] % (Auto) 8.0, Eos % (Auto) 0.7, Baso % (Auto) 0.7, Absolute Neuts (auto) 8.8 H, Absolute Lymphs (auto) 0.82 L, Nucleated RBC % 0 06/15/22 04:45: Sodium 134 L, Potassium 4.0, Chloride 108 H, Carbon Dioxide 22.0, Anion Gap 4 L, BUN 25 H, Creatinine 0.98, Estim Creat Clear Calc 96.70, Est GFR (MDRD) Af Amer 74, Est GFR (MDRD) Non-Af 61, BUN/Creatinine Ratio 25.5 H , Glucose 67 L, Calcium 8.0 L, Total Bilirubin 0.30, AST 16, ALT 10 L, Alkaline Phosphatase 93, Total Protein 5.3 L, Albumin 1.4 L, Globulin 3.9, Albumin/Globulin Ratio 0.4 L 06/15/22 06:33: POC Glucose 58 L 06/15/22 12:24: POC Glucose 86 Micro: Microbiology 06/12/22 10:50 Blood Culture (Wb) - Right Wrist Blood Culture - Preliminary No growth in 48 hours. 06/12/22 10:37 Blood Culture (Wb) - Left Forearm Blood Culture - Preliminary No growth in 48 hours. Physical Exam Const alert, oriented x3 and no apparent distress General Appearance: cooperative HEENT normocephalic, head/scalp atraumatic and moist oral mucous membranes Eyes PERRL and EOMs intact bilaterally Neck no lymphadenopathy, supple and thyroid normal Lymph Lymphatic: no lymphadenopathy noted and no lymphedema noted Resp normal respiratory effort, normal air movement and clear to auscultation bilaterally Cardio regular rate, regular rhythm, S1 normal heart sound, S2 normal heart sound and no murmurs Palpation: normal PMI GI normal to inspection, nondistended, normoactive bowel sounds, soft to palpation, non-tender and non-distended Extremity normal capillary refill, no clubbing, cyanosis or edema and no calf tenderness General Extremity: clubbing and cyanosis Skin Skin Narrative: has hyperkeratinised skin on her toes. Neuro CN's II-XII intact bilaterally, no focal motor deficits, no sensory deficits noted and deep tendon reflexes 2+ bilaterally Psych thought process normal Appearance: appropriate Assessment & Plan Assessment/Plan (1) Septic shock: (2) Complicated UTI (urinary tract infection): PLAN: Plan #Septic shock due to Pseudomonas UTI * Septic shock has resolved. * On IV cefepime. Lactic acidosis has also resolved with IV fluid administration. * ID consulted. * Off Levophed. * Urine cultures growing Pseudomonas and Proteus. * #EDWINA on CKD stage IIIb: Resolved. Creatinine down to baseline. #Type 2 diabetes mellitus: On Lantus 40 units daily. Insulin sliding scale. Accu-Cheks ACHS. #History of multiple sclerosis with chronic indwelling Valenzuela catheter. Valenzuela catheter changed with this admission. PT OT on board. For precautions. #Hypothyroidism: On Synthroid DVT prophylaxis: Heparin Disposition: Transfer patient out of ICU to regular floor. Total time spent on evaluation and management of patient, reviewing chart and specialist notes, discussing plan with patient, discussion with nursing and ancillary staff as well as documentation: 42 mins Charges/Coding Visit Charges Inpatient E&M: 41739 Subs Hosp L2
[2022-06-15 16:56] LABS: Bedside Glucose 49 mg/dL (74-106)
[2022-06-15] MEDS: Dextrose 50%-Water 25 GM/50 ML DISP.SYRIN IV (17:01)
[2022-06-15] MEDS: Dextrose 5%/0.9% NaCl 1,000 ML 100 ML IV (17:01)
[2022-06-15 17:40] LABS: Bedside Glucose 52 mg/dL (74-106)
[2022-06-15 17:50] LABS: Bedside Glucose 90 mg/dL (74-106)
[2022-06-15] MEDS: Atorvastatin Calcium 80 MG Tablet PO (20:21)
[2022-06-15] MEDS: Insulin Lispro 100 UNIT/ML INSULN.PEN SC (20:21)
[2022-06-15 21:00] LABS: Bedside Glucose 154 mg/dL (74-106)
[2022-06-16] VITALS: BP 89/55; PULSE 92; RESP 17; TEMP 36.8; O2SAT 95
[2022-06-16 02:00] VITALS: BP 91/58; PULSE 92; RESP 16; TEMP 36.2; O2SAT 97
[2022-06-16 04:30] LABS: Absolute Lymphocyte Count 0.45 X10^3/uL (0.83-4.51); Absolute Neutrophil Count 7.9 X10^3/uL (2.0-7.7); Basophil% 1.1 % (0-1); Eosinophil# 0.08 X10^3/uL; Eosinophils% 0.9 % (0-5); Hematocrit 28.3 % (37-47); Hemoglobin 8.9 g/dL (12.0-15.0); Lymphocyte # 0.45 X10^3/ul (0.83-4.51); Lymphocyte % 4.8 % (19-41); Mean Corp Hgb Conc 31.4 g/dL (32-36); Mean Corpuscular Hgb 29.1 pg (27.0-32.0); Mean Corpuscular Volume 92.5 fL (81-99); Mean Platelet Vol. 9.9 fl (6.2-12.0); Monocyte# 0.43 X10^3/uL; Monocyte% 4.6 % (0-10); NRBC Flagged by Analyzer 0 % (0-5); Neutrophil # 7.89 X10^3/uL (2.7-7.7); Neutrophil % 84.2 % (47-70); POSITIVE DIFFERENTIAL YES; Platelet Count 288 K/mm3 (150-450); RBC Distribution Width CV 15.6 % (11.6-14.6); RBC Distribution Width SD 52.8 fl (35.1-43.9); Red Blood Count 3.06 M/mm3 (4.2-5.4); White Blood Count 9.4 K/mm3 (4.4-11.0)
[2022-06-16 04:31] LABS: Differential Indicated SCAN CRITERIA MET
[2022-06-16 04:47] LABS: ALB/GLOB Ratio 0.3 RATIO (0.9-2.4); AST(SGOT) 11 U/L (15-37); Alanine Aminotransfer ALT/SGPT 7 U/L (13-56); Albumin, Serum 1.3 g/dL (3.2-5.0); Alkaline Phosphatase 91 U/L (45-117); Anion Gap 5 (5-15); BUN 25 mg/dL (7-18); BUN/Creat Ratio 23.8 RATIO (10-20); Calcium,Total 7.8 mg/dL (8.5-10.1); Chloride 109 mmol/L (98-107); Creatinine, Serum 1.05 mg/dL (0.55-1.02); EST Glomerular Filtration Rate 57 mL/min (>60); Est Glom Filt Rate - Afr Amer 69 mL/min (>60); Estimated Creatinine Clearance 89.14 ml/min; Globulin 3.9 g/dL (2.2-4.2); Glucose 147 mg/dL (74-106); Potassium 3.8 mmol/L (3.5-5.1); Protein, Total 5.2 g/dL (6.4-8.2); Sodium Level 134 mmol/L (136-145)
[2022-06-16 04:55] VITALS: BMI 46.5
[2022-06-16] MEDS: 0.9% Saline Lock 10 ML Syringe IV (05:04)
[2022-06-16] MEDS: Dextrose 5%/0.9% NaCl 1,000 ML 100 ML IV (05:04)
[2022-06-16] MEDS: Heparin Injection (Vial) 5,000 UNIT/ML VIAL 5000 UNIT SC ×3 (05:05→21:31)
[2022-06-16] MEDS: Levothyroxine 50 MCG Tablet PO (05:05)
[2022-06-16 05:18] LABS: Anisocytosis 1+
[2022-06-16 07:01] LABS: Bedside Glucose 131 mg/dL (74-106)
[2022-06-16 08:00] VITALS: BP 94/55; PULSE 85; RESP 18; TEMP 36.4; O2SAT 97
[2022-06-16] MEDS: Menthol/Lanolin/Calamine/Znox 113 GM Tube 1 APPLIC TOPICAL ×2 (08:39→21:31)
[2022-06-16] MEDS: Arthritis Pain Compound 60 CLICK TUBE TOPICAL ×2 (08:39→21:30)
[2022-06-16] MEDS: Nystatin Powder 15gm Bottle 1 APPLIC TOPICAL ×2 (08:40→21:39)
[2022-06-16] MEDS: Pantoprazole Sodium 40 MG Tablet PO (08:40)
[2022-06-16] MEDS: DULoxetine Hcl 30 MG Capsule PO ×2 (08:40→21:31)
--- NOTE | 2022-06-16 10:10 | CASEMGMT ---
Addendum entered by Cheyenne Lane 06/16/22 12:09: Social Work SW was able to assist pt in completing POA form, she deferred completing LW at this time. SW gave pt original and copies, and copy placed on chart. Pt named son Steven as Healthcare POA. NUNU Motley Original Note: Social Work Pt had indicated on Wednesday she wanted to complete LW/POA forms. SW attempted to see pt this morning, she is asleep. SW to follow up w/pt as time allows in regard to LW/POA forms. NUNU Motley
--- NOTE | 2022-06-16 10:24 | PCM.PROGNOTE ---
Subjective Subjective Patient seen and examined. She has no active complaints today and had an uneventful night. Her BP has been running a bit low, in the 80s and 90s systolic. She denies any nausea, vomiting, diarrhea, lightheadedness or any other complaints. Review of systems is otherwise negative. Objective Data Objective Data Vital Signs: Vital Signs Temp Pulse Resp BP Pulse Ox O2 Del Method 97.6 F L 85 18 94/55 L 97 Room Air 06/16/22 08:00 06/16/22 08:00 06/16/22 08:00 06/16/22 08:00 06/16/22 08:00 06/16/22 09:34 Oxygen Delivery Method Room Air Weight: 221 lb 9.033 oz Body Mass Index (BMI) 46.5 Intake & Output: Intake and Output for Last 24 Hours 06/14/22 06/15/22 06/16/22 23:59 23:59 23:59 Intake Total 1680 / 1680 980 / 980 1300 / 1300 Output Total 1175 / 1175 1775 / 1775 400 / 400 Balance 505 / 505 -795 / -795 900 / 900 Lab / Micro Data Result Diagrams: 06/16/22 04:24 06/16/22 04:24 Labs: Laboratory Results - last 24 hr 06/15/22 12:24: POC Glucose 86 06/15/22 16:32: POC Glucose 49 L 06/15/22 16:53: POC Glucose 52 L 06/15/22 17:27: POC Glucose 90 06/15/22 20:20: POC Glucose 154 H 06/16/22 04:24: WBC 9.4, RBC 3.06 L, Hgb 8.9 L, Hct 28.3 L, MCV 92.5, MCH 29.1, MCHC 31.4 L, RDW Std Deviation 52.8 H, RDW Coeff of Mele 15.6 H, Plt Count 288, MPV 9.9, Immature Gran % (Auto) 4.400 H, Neut % (Auto) 84.2 H, Lymph % (Auto) 4.8 L, [place] % (Auto) 4.6, Eos % (Auto) 0.9, Baso % (Auto) 1.1 H, Absolute Neuts (auto) 7.9 H, Absolute Lymphs (auto) 0.45 L, Nucleated RBC % 0, Anisocytosis 1+ 06/16/22 04:24: Sodium 134 L, Potassium 3.8, Chloride 109 H, Carbon Dioxide 20.0 L, Anion Gap 5, BUN 25 H, Creatinine 1.05 H, Estim Creat Clear Calc 89.14, Est GFR (MDRD) Af Amer 69, Est GFR (MDRD) Non-Af 57 L, BUN/Creatinine Ratio 23.8 H, Glucose 147 H, Calcium 7.8 L, Total Bilirubin 0.40, AST 11 L, ALT 7 L, Alkaline Phosphatase 91, Total Protein 5.2 L, Albumin 1.3 L, Globulin 3.9, Albumin/Globulin Ratio 0.3 L 06/16/22 06:38: POC Glucose 131 H Micro: Microbiology 06/12/22 10:50 Blood Culture (Wb) - Right Wrist Blood Culture - Preliminary No growth in 48 hours. 06/12/22 10:37 Blood Culture (Wb) - Left Forearm Blood Culture - Preliminary No growth in 48 hours. Physical Exam Const alert, oriented x3 and no apparent distress General Appearance: cooperative HEENT normocephalic, head/scalp atraumatic and moist oral mucous membranes Eyes PERRL and EOMs intact bilaterally Neck no lymphadenopathy, supple, no JVD and thyroid normal Lymph Lymphatic: no lymphadenopathy noted and no lymphedema noted Resp normal respiratory effort, normal air movement and clear to auscultation bilaterally Cardio regular rate, regular rhythm, S1 normal heart sound, S2 normal heart sound and no murmurs GI normal to inspection, nondistended, normoactive bowel sounds, soft to palpation, non-tender and non-distended Extremity normal capillary refill, no clubbing, cyanosis or edema and no calf tenderness General Extremity: clubbing and cyanosis Neuro CN's II-XII intact bilaterally, no focal motor deficits, no sensory deficits noted and deep tendon reflexes 2+ bilaterally Psych thought process normal Appearance: appropriate Assessment & Plan Assessment/Plan (1) Septic shock: (2) Complicated UTI (urinary tract infection): PLAN: Plan #Septic shock due to Pseudomonas UTI Septic shock has resolved. On IV cefepime. Lactic acidosis has also resolved with IV fluid administration. ID on board. Off Levophed. Urine cultures growing Pseudomonas and Proteus. #Hypotension her BP continues to run low, in the 80s and 90s systolic not on any hypertensive meds. Hydrate with IVF and continue monitoring BP #EDWINA on CKD stage IIIb: Resolved. Creatinine down to baseline. #Type 2 diabetes mellitus: On Lantus 40 units daily. Insulin sliding scale. Accu-Cheks ACHS. #History of multiple sclerosis with chronic indwelling Valenzuela catheter. Valenzuela catheter changed with this admission. PT OT on board. For precautions. #Hypothyroidism: On Synthroid DVT prophylaxis: Heparin Disposition: Transfer patient out of ICU to regular floor. Total time spent on evaluation and management of patient, reviewing chart and specialist notes, discussing plan with patient, discussion with nursing and ancillary staff as well as documentation: 40 mins Charges/Coding Visit Charges Inpatient E&M: 96167 Subs Hosp L2
[2022-06-16] MEDS: 0.9% Normal Saline 1,000 ML 125 ML IV ×2 (11:49→21:30)
[2022-06-16 12:42] LABS: Pathologist Review Reviewed
[2022-06-16 15:00] VITALS: BP 94/65; PULSE 86; RESP 18; TEMP 36.5; O2SAT 96
--- NOTE | 2022-06-16 15:14 | PCM.PN.ID ---
Physical Exam Narrative Feeling better, abd much less sore, no fever Const alert and no apparent distress General Appearance: cooperative Resp normal air movement and clear to auscultation bilaterally Cardio regular rate and regular rhythm GI soft to palpation, non-tender and non-distended Skin no rashes or lesions noted ID ID: Route of nutrition/ use of supplements: [] Nutritional Intake: [] IV Site: [] Valenzuela Catheter: [] Assessment & Plan Assessment/Plan (1) Septic shock: (2) Morbid obesity: (3) Complicated UTI (urinary tract infection): PLAN: Off pressor. Ucx with pseudomonas and proteus. Cont cefepime, overall much improved. No po options for abx. Will follow
[2022-06-16 16:31] LABS: Bedside Glucose 126 mg/dL (74-106)
[2022-06-16 21:26] VITALS: BP 102/62; PULSE 86; RESP 20; TEMP 36.9; O2SAT 99
[2022-06-16] MEDS: Atorvastatin Calcium 80 MG Tablet PO (21:31)
[2022-06-16 22:55] LABS: Bedside Glucose 127 mg/dL (74-106)
[2022-06-17 02:32] VITALS: BMI 47.9
[2022-06-17 03:14] VITALS: BP 97/57; PULSE 87; RESP 20; TEMP 36.9; O2SAT 99
[2022-06-17] MEDS: Heparin Injection (Vial) 5,000 UNIT/ML VIAL 5000 UNIT SC ×3 (04:06→22:07)
[2022-06-17] MEDS: Levothyroxine 50 MCG Tablet PO (04:07)
[2022-06-17 05:11] LABS: Hematocrit 26.7 % (37-47); Hemoglobin 8.3 g/dL (12.0-15.0); Mean Corp Hgb Conc 31.1 g/dL (32-36); Mean Corpuscular Hgb 29.2 pg (27.0-32.0); Mean Platelet Vol. 10.3 fl (6.2-12.0); POSITIVE COUNT YES; POSITIVE MORPHOLOGY YES; Platelet Count 326 K/mm3 (150-450); RBC Distribution Width CV 15.9 % (11.6-14.6); RBC Distribution Width SD 54.6 fl (35.1-43.9); Red Blood Count 2.84 M/mm3 (4.2-5.4); White Blood Count 7.1 K/mm3 (4.4-11.0)
[2022-06-17 05:14] LABS: Differential Indicated MANUAL DIFF
[2022-06-17 05:52] LABS: ALB/GLOB Ratio 0.3 RATIO (0.9-2.4); AST(SGOT) 7 U/L (15-37); Alanine Aminotransfer ALT/SGPT < 6 U/L (13-56); Albumin, Serum 1.1 g/dL (3.2-5.0); Alkaline Phosphatase 85 U/L (45-117); Anion Gap 4 (5-15); BUN 24 mg/dL (7-18); BUN/Creat Ratio 22.9 RATIO (10-20); Calcium,Total 7.7 mg/dL (8.5-10.1); Chloride 112 mmol/L (98-107); Creatinine, Serum 1.05 mg/dL (0.55-1.02); EST Glomerular Filtration Rate 57 mL/min (>60); Est Glom Filt Rate - Afr Amer 69 mL/min (>60); Globulin 3.8 g/dL (2.2-4.2); Glucose 117 mg/dL (74-106); Potassium 4.1 mmol/L (3.5-5.1); Protein, Total 4.9 g/dL (6.4-8.2); Sodium Level 137 mmol/L (136-145)
[2022-06-17 06:20] LABS: Anisocytosis 1+
[2022-06-17 06:21] LABS: Platelet Estimate ADEQUATE (ADEQ); Red Cell Morphology NORM C+C NORMAL (NORM C&C)
[2022-06-17 06:28] LABS: Absolute Lymphocyte Count 0.92 X10^3/uL (0.83-4.51); Absolute Neutrophil Count 5.4 X10^3/uL (2.0-7.7); Lymphocyte 13 % (19-41); Metamyelocyte 1 % (0-1); Monocyte 4 % (0-10); Myelocyte 5 % (0-0); Neutrophil-Band 10 % (0-5); Neutrophil-Segmented 66 % (47-70); Promyelocyte 1 % (0-0); Total Cells Counted 100 (MANUAL DIFF)
[2022-06-17 08:01] LABS: Bedside Glucose 112 mg/dL (74-106)
[2022-06-17 09:17] VITALS: BP 93/57; PULSE 80; RESP 18; TEMP 36.3; O2SAT 99
--- NOTE | 2022-06-17 09:25 | CASEMGMT ---
SW received a call from Lidya with [facility]. Patient has been active with [facility] for awhile. There are concerns with patient's living situation and the lack of care she is receiving at home. Adriana BURRIS
[2022-06-17] MEDS: Arthritis Pain Compound 60 CLICK TUBE TOPICAL ×2 (09:35→22:07)
[2022-06-17] MEDS: DULoxetine Hcl 30 MG Capsule PO ×2 (09:35→22:22)
[2022-06-17] MEDS: Pantoprazole Sodium 40 MG Tablet PO (09:35)
[2022-06-17] MEDS: Nystatin Powder 15gm Bottle 1 APPLIC TOPICAL ×2 (09:38→22:23)
[2022-06-17] MEDS: Menthol/Lanolin/Calamine/Znox 113 GM Tube 1 APPLIC TOPICAL ×2 (09:38→22:22)
[2022-06-17 12:10] LABS: Bedside Glucose 114 mg/dL (74-106)
--- NOTE | 2022-06-17 14:04 | PN_ITS ---
Subjective Subjective Patient seen and examined. She had no active complaints and had an uneventful night. Review of systems otherwise negative. She remains on IV cefepime and to complete the course of antibiotics tomorrow. She has otherwise remained stable. Objective Data Objective Data Vital Signs: Vital Signs Temp Pulse Resp BP Pulse Ox O2 Del Method 97.3 F L 80 18 93/57 L 99 Room Air 06/17/22 09:17 06/17/22 09:17 06/17/22 09:17 06/17/22 09:17 06/17/22 09:17 06/17/22 13:21 Oxygen Delivery Method Room Air Weight: 228 lb 2.855 oz Body Mass Index (BMI) 47.9 Intake & Output: Intake and Output for Last 24 Hours 06/15/22 06/16/22 06/17/22 23:59 23:59 23:59 Intake Total 980 / 980 3356.67 / 3356.67 1270 / 1270 Output Total 1775 / 1775 1250 / 1250 800 / 800 Balance -795 / -795 2106.67 / 2106.67 470 / 470 Lab / Micro Data Result Diagrams: 06/17/22 04:04 06/17/22 04:04 Labs: Laboratory Results - last 24 hr 06/16/22 16:10: POC Glucose 126 H 06/16/22 21:33: POC Glucose 127 H 06/17/22 04:04: WBC 7.1, RBC 2.84 L, Hgb 8.3 L, Hct 26.7 L, MCV 94.0, MCH 29.2, MCHC 31.1 L, RDW Std Deviation 54.6 H, RDW Coeff of Mele 15.9 H, Plt Count 326, MPV 10.3, Neut % (Auto) Not Reportable, Absolute Neuts (auto) 5.4, Absolute Lymphs (auto) 0.92, Total Counted 100, Neutrophils % (Manual) 66, Band Neutrophils % 10 H, Lymphocytes % (Manual) 13 L, Monocytes % (Manual) 4, Met amyelocytes % 1, Myelocytes % 5 H, Promyelocytes % 1 H, Diff Path Review June, Platelet Estimate ADEQUATE, RBC Morphology NORM C+C, Anisocytosis 1+ 06/17/22 04:04: Sodium 137, Potassium 4.1, Chloride 112 H, Carbon Dioxide 21.0, Anion Gap 4 L, BUN 24 H, Creatinine 1.05 H, Estim Creat Clear Calc 93.10, Est GFR (MDRD) Af Amer 69, Est GFR (MDRD) Non-Af 57 L, BUN/Creatinine Ratio 22.9 H, Glucose 117 H, Calcium 7.7 L, Total Bilirubin 0.40, AST 7 L, ALT < 6 L, Alkaline Phosphatase 85, Total Protein 4.9 L, Albumin 1.1 L, Globulin 3.8, Albumi n/Globulin Ratio 0.3 L 06/17/22 06:47: POC Glucose 112 H 06/17/22 11:13: POC Glucose 114 H Micro: Microbiology 06/12/22 10:50 Blood Culture (Wb) - Right Wrist Blood Culture - Final No growth in 5 days. 06/12/22 10:37 Blood Culture (Wb) - Left Forearm Blood Culture - Final No growth in 5 days. Physical Exam Const alert, oriented x3 and no apparent distress General Appearance: cooperative HEENT normocephalic, head/scalp atraumatic and moist oral mucous membranes Eyes PERRL and EOMs intact bilaterally Neck no lymphadenopathy, supple, no JVD and thyroid normal Lymph Lymphatic: no lymphadenopathy noted and no lymphedema noted Resp normal respiratory effort, normal air movement and clear to auscultation bilaterally Cardio regular rate, regular rhythm, S1 normal heart sound, S2 normal heart sound and no murmurs Palpation: normal PMI GI normal to inspection, nondistended, normoactive bowel sounds, soft to palpation, non-tender and non-distended Extremity normal capillary refill, no clubbing, cyanosis or edema and no calf tenderness General Extremity: clubbing and cyanosis Skin Skin Narrative: has hyperkeratinised skin on her toes. Neuro CN's II-XII intact bilaterally, no focal motor deficits, no sensory deficits noted and deep tendon reflexes 2+ bilaterally Psych thought process normal Appearance: appropriate Assessment & Plan Assessment/Plan (1) Septic shock: (2) Complicated UTI (urinary tract infection): PLAN: Plan #Septic shock due to Pseudomonas UTI * Septic shock has resolved. * On IV cefepime. Lactic acidosis has also resolved with IV fluid adm inistration. * ID on board. * Off Levophed. * Urine cultures growing Pseudomonas and Proteus. * to complete course of cefepime tomorrow, per ID. * #Hypotension * her BP continues to run low, in the 80s and 90s systolic * not on any hypertensive meds. Hydrate with IVF and continue monitoring BP * BP still running borderline low. Will continue hyration and monitor * #EDWINA on CKD stage IIIb: Resolved. Creatinine down to baseline. #Type 2 diabetes mellitus: On Lantus 40 units daily. Insulin sliding scale. Accu-Cheks ACHS. #History of multiple sclerosis with chronic indwelling Valenzuela catheter. Valenzuela catheter changed with this admission. PT OT on board. For precautions. #Hypothyroidism: On Synthroid DVT prophylaxis: Heparin Disposition: Transfer patient out of ICU to regular floor. Total time spent on evaluation and management of patient, reviewing chart and specialist notes, discussing plan with patient, discussion with nursing and ancillary staff as well as documentation: 40 mins Charges/Coding Visit Charges Inpatient E&M: 79849 Subs Hosp L2
[2022-06-17 15:15] VITALS: BP 102/59; PULSE 90; RESP 18; TEMP 36.7; O2SAT 99
--- NOTE | 2022-06-17 15:19 | PCM.PN.ID ---
Physical Exam Narrative Feeling better, some nausea and headache. No fever. Const alert and no apparent distress Resp normal air movement and clear to auscultation bilaterally Cardio regular rate and regular rhythm GI soft to palpation, non-tender and non-distended Skin no rashes or lesions noted ID ID: Route of nutrition/ use of supplements: [] Nutritional Intake: [] IV Site: [] Valenzuela Catheter: [] Assessment & Plan Assessment/Plan (1) Septic shock: (2) Morbid obesity: (3) Complicated UTI (urinary tract infection): PLAN: Off pressor. Ucx with pseudomonas and proteus. Cont cefepime, overall much improved. No po options for abx. Plan on stopping course tomorrow. Will follow
--- NOTE | 2022-06-17 15:35 | CASEMGMT ---
JANELL called Wendi Browne, patient's corrections caseworker at [facility]. JANELL left Wendi a voice mail requesting a return call regarding patient's care at home and the condition of the home. Adriana BURRIS
--- NOTE | 2022-06-17 15:48 | CASEMGMT ---
JANELL received a call from patient's case manager specialist, Wendi. Wendi said the home isn't the cleanest. Wendi said patient has a medical alert button, she gets 14 meals delivered a week from [employer]. Patient is approved for 3 hours of aide services ,,,, and Wednesday. Patient's daughter is her aide. When Wendi has visited she feels patient's home is not the best, but she has been under the impression that she is being cared for. Adriana Callaway [employer] [place]
[2022-06-17] MEDS: 0.9% Normal Saline 1,000 ML 125 ML IV (16:10)
[2022-06-17 17:45] LABS: Bedside Glucose 146 mg/dL (74-106)
[2022-06-17 21:45] VITALS: BP 88/55; PULSE 109; RESP 16; TEMP 37.5; O2SAT 96
[2022-06-17] MEDS: Atorvastatin Calcium 80 MG Tablet PO (22:07)
[2022-06-17] MEDS: Acetaminophen 325 MG Tablet 650 MG PO (22:07)
[2022-06-17] MEDS: Insulin Glargine-YFGN 100 UNIT/ML Pen 35 UNIT SC (22:22)
[2022-06-17 23:26] VITALS: BP 90/59; PULSE 101; RESP 18; TEMP 37.5; O2SAT 96
[2022-06-17 23:36] LABS: Bedside Glucose 143 mg/dL (74-106)
[2022-06-18] MEDS: 0.9% Normal Saline 1,000 ML 125 ML IV (03:00)
[2022-06-18 03:34] VITALS: BMI 47.1
[2022-06-18 03:37] VITALS: BP 87/53; PULSE 82; RESP 20; TEMP 36.2; O2SAT 96
[2022-06-18] MEDS: Heparin Injection (Vial) 5,000 UNIT/ML VIAL 5000 UNIT SC ×3 (05:20→22:58)
[2022-06-18] MEDS: Levothyroxine 50 MCG Tablet PO (05:21)
[2022-06-18 05:27] VITALS: BP 85/51; PULSE 84; RESP 18; TEMP 36.4; O2SAT 97
[2022-06-18 07:30] VITALS: BP 101/60; PULSE 79; RESP 18; TEMP 36.8; O2SAT 100
[2022-06-18 08:43] LABS: Hematocrit 27.2 % (37-47); Hemoglobin 8.3 g/dL (12.0-15.0); Mean Corp Hgb Conc 30.5 g/dL (32-36); Mean Corpuscular Hgb 28.7 pg (27.0-32.0); Mean Corpuscular Volume 94.1 fL (81-99); Mean Platelet Vol. 10.2 fl (6.2-12.0); POSITIVE COUNT YES; POSITIVE MORPHOLOGY YES; Platelet Count 302 K/mm3 (150-450); RBC Distribution Width CV 16.1 % (11.6-14.6); Red Blood Count 2.89 M/mm3 (4.2-5.4); White Blood Count 10.3 K/mm3 (4.4-11.0)
[2022-06-18 08:51] LABS: Differential Indicated MANUAL DIFF
[2022-06-18] MEDS: Midodrine HCl 5 MG Tablet 10 MG PO ×3 (09:10→16:15)
[2022-06-18] MEDS: Nystatin Powder 15gm Bottle 1 APPLIC TOPICAL ×2 (09:11→22:57)
[2022-06-18] MEDS: DULoxetine Hcl 30 MG Capsule PO (09:11)
[2022-06-18] MEDS: Pantoprazole Sodium 40 MG Tablet PO (09:11)
[2022-06-18] MEDS: Menthol/Lanolin/Calamine/Znox 113 GM Tube 1 APPLIC TOPICAL ×2 (09:11→22:56)
[2022-06-18] MEDS: Arthritis Pain Compound 60 CLICK TUBE TOPICAL ×2 (09:12→22:55)
[2022-06-18] MEDS: 0.9% Normal Saline 1,000 ML 150 ML IV ×2 (09:19→18:08)
[2022-06-18 09:22] LABS: Anion Gap 3 (5-15); BUN 26 mg/dL (7-18); BUN/Creat Ratio 24.1 RATIO (10-20); Calcium,Total 7.8 mg/dL (8.5-10.1); Chloride 116 mmol/L (98-107); Creatinine, Serum 1.08 mg/dL (0.55-1.02); EST Glomerular Filtration Rate 55 mL/min (>60); Est Glom Filt Rate - Afr Amer 67 mL/min (>60); Estimated Creatinine Clearance 89.02 ml/min; Glucose 144 mg/dL (74-106); Potassium 4.1 mmol/L (3.5-5.1); Sodium Level 138 mmol/L (136-145)
[2022-06-18 09:36] LABS: Basophil 1 % (0-1); Blast 1 % (0-0); Eosinophil 1 % (0-5); Lymphocyte 12 % (19-41); Metamyelocyte 2 % (0-1); Monocyte 7 % (0-10); Myelocyte 1 % (0-0); Neutrophil-Segmented 75 % (47-70); Platelet Estimate ADEQUATE (ADEQ); Red Cell Morphology NORM C+C NORMAL (NORM C&C); Total Cells Counted 100 (MANUAL DIFF)
[2022-06-18 09:37] LABS: Absolute Neutrophil Count 7.7 X10^3/uL (2.0-7.7)
[2022-06-18 09:57] LABS: Pathologist Review Reviewed
[2022-06-18 11:30] VITALS: BP 101/60; PULSE 77; RESP 18; TEMP 36.7; O2SAT 99
[2022-06-18 11:56] LABS: Bedside Glucose 127 mg/dL (74-106)
--- NOTE | 2022-06-18 12:09 | PN_ITS ---
Subjective Subjective Patient seen and examined. She was sleeping comfortably. She had no active complaints and had an uneventful night. Blood pressure continues to run low and has been remaining in the 70s, 80s and 90s systolic. He does not have any previous history of such hypotension. He denies any lightheadedness or dizziness. Review of stems otherwise negative. Objective Data Objective Data Vital Signs: Vital Signs Temp Pulse Resp BP Pulse Ox O2 Del Method 98.1 F 77 18 101/60 99 Room Air 06/18/22 11:30 06/18/22 11:30 06/18/22 11:30 06/18/22 11:30 06/18/22 11:30 06/18/22 11:30 Oxygen Delivery Method Room Air Weight: 224 lb 6.889 oz Body Mass Index (BMI) 47.1 Intake & Output: Intake and Output for Last 24 Hours 06/16/22 06/17/22 06/18/22 23:59 23:59 23:59 Intake Total 3356.67 / 3356.67 1710 / 1710 / Output Total 1250 / 1250 1200 / 1200 575 / 575 Balance 2106.67 / 2106.67 510 / 510 1436.67 / 1436.67 Lab / Micro Data Result Diagrams: 06/18/22 08:26 06/18/22 08:26 Labs: Laboratory Results - last 24 hr 06/17/22 04:04: Diff Path Review Reviewed 06/17/22 11:13: POC Glucose 114 H 06/17/22 16:08: POC Glucose 146 H 06/17/22 22:21: POC Glucose 143 H 06/18/22 08:26: WBC 10.3, RBC 2.89 L, Hgb 8.3 L, Hct 27.2 L, MCV 94.1, MCH 28.7, MCHC 30.5 L, RDW Std Deviation 55.0 H, RDW Coeff of Mele 16.1 H, Plt Count 302, MPV 10.2, Neut % (Auto) Not Reportable, Absolute Neuts (auto) 7.7, Absolute Lymphs (auto) 1.20, Total Counted 100, Neutrophils % (Manual) 75 H, Lymphocytes % (Manual) 12 L, Monocytes % (Manual) 7, Eosinophils % (Manual) 1, Basophils % (Manual) 1, Metamyelocytes % 2 H, Myelocytes % 1 H, Blast Cells % 1 H*, Diff Path Review May , Platelet Estimate ADEQUATE, RBC Morphology NORM C+C 06/18/22 08:26: Sodium 138, Potassium 4.1, Chloride 116 H, Carbon Dioxide 19.0 L , Anion Gap 3 L, BUN 26 H, Creatinine 1.08 H, Estim Creat Clear Calc 89.02, Est GFR (MDRD) Af Amer 67, Est GFR (MDRD) Non-Af 55 L, BUN/Creatinine Ratio 24.1 H, Glucose 144 H, Calcium 7.8 L 06/18/22 11:19: POC Glucose 127 H Micro: Microbiology 06/12/22 10:50 Blood Culture (Wb) - Right Wrist Blood Culture - Final No growth in 5 days. 06/12/22 10:37 Blood Culture (Wb) - Left Forearm Blood Culture - Final No growth in 5 days. Physical Exam Const alert, oriented x3 and no apparent distress General Appearance: cooperative HEENT normocephalic, head/scalp atraumatic and moist oral mucous membranes Eyes PERRL and EOMs intact bilaterally Neck no lymphadenopathy, supple, no JVD and thyroid normal Lymph Lymphatic: no lymphadenopathy noted and no lymphedema noted Resp normal respiratory effort, normal air movement and clear to auscultation bilaterally Cardio regular rate, regular rhythm, S1 normal heart sound, S2 normal heart sound and no murmurs Palpation: normal PMI GI normal to inspection, nondistended, normoactive bowel sounds, soft to palpation, non-tender and non-distended Extremity normal capillary refill, no clubbing, cyanosis or edema and no calf tenderness General Extremity: clubbing and cyanosis Skin General Skin Exam: no breakdown Neuro CN's II-XII intact bilaterally, no focal motor deficits, no sensory deficits noted and deep tendon reflexes 2+ bilaterally Psych thought process normal Appearance: appropriate Assessment & Plan Assessment/Plan (1) Septic shock: (2) Complicated UTI (urinary tract infection): PLAN: Plan #Septic shock due to Pseudomonas UTI * Septic shock has resolved. * On IV cefepime. Lactic acidosis has also resolved with IV fluid administration. * ID on board. * Off Levophed. * Urine cultures growing Pseudomonas and Proteus. * complete course of cefepime today * #Hypotension * her BP continues to run low, in the 80s and 90s systolic * not on any hypertensive meds. Hydrate with IVF and continue monitoring BP * start on midodrine today * #EDWINA on CKD stage IIIb: Resolved. Creatinine down to baseline. #Type 2 diabetes mellitus: On Lantus 40 units daily. Insulin sliding scale. Accu-Cheks ACHS. #History of multiple sclerosis with chronic indwelling Valenzuela catheter. Valenzuela catheter changed with this admission. PT OT on board. For precautions. #Hypothyroidism: On Synthroid DVT prophylaxis: Heparin Disposition: for likely dc home tomorrow if BP improves on midodrine Total time spent on evaluation and management of patient, reviewing chart and specialist notes, discussing plan with patient, discussion with nursing and ancillary staff as well as documentation: 40 mins Charges/Coding Visit Charges Inpatient E&M: 41231 Subs Hosp L2
[2022-06-18 16:10] VITALS: BP 97/64; PULSE 71; RESP 18; TEMP 36.6; O2SAT 98
[2022-06-18 16:55] LABS: Bedside Glucose 122 mg/dL (74-106)
[2022-06-18 22:10] VITALS: BP 88/63; PULSE 76; RESP 18; TEMP 36.4; O2SAT 97
--- NOTE | 2022-06-18 22:20 | CT_ITS ---
INDICATION: Mental status change EXAMINATION: CT BRAIN - CT Head or Brain W/O Contrast Injection TECHNIQUE: Multiple axial images were obtained of the head without intravenous contrast. A radiation dose optimization technique was used for this scan. IV Contrast dosage and agent: None. COMPARISON: MRI brain March 19, 2022. FINDINGS: BRAIN PARENCHYMA: No intra- or extra-axial hemorrhage. No intracranial mass or mass effect. Farrell/white matter differentiation is maintained and there is no blurring of the basal ganglia. There is no hyperdense vessel. Small area of decreased density in the right periventricular white matter corresponding to high T2 FLAIR signal on comparison MRI without appreciable change when differences in imaging modality are taken into consideration. Posterior fossa structures are unremarkable. CSF SPACES: Appropriate for age. No hydrocephalus. Basal cisterns are patent. CALVARIUM, SKULL BASE, PARANASAL SINUSES AND MASTOID AIR CELLS: Intact calvarium and skull base. No fracture or osseous lesion. Paranasal sinuses are clear. Mastoid air cells and middle ears are clear. ORBITS: Both globes, extraocular muscles, optic nerves and retrobulbar fat appear unremarkable. ASPECTS Score for Acute Strokes: 10 CT/Brain/Head without Contrast IMPRESSION: No acute intracranial pathology. Electronically Signed: Franklyn Reynoso DO at 23:27 EDT ,
--- NOTE | 2022-06-18 22:21 | PCM.HOSP.N ---
Hospitalist Note Patient on notes per review with A+O x 3, this evening decreased orientation. Will obtain CT head to be cautious.
[2022-06-18] MEDS: Insulin Glargine-YFGN 100 UNIT/ML Pen 35 UNIT SC (23:17)
[2022-06-19 00:10] VITALS: BP 102/55; PULSE 74; RESP 16; TEMP 36.4; O2SAT 99
--- NOTE | 2022-06-19 00:17 | TELEMED_ITS ---
[facility] has confirmed receipt of a request for visit. This document confirms receipt of the order initiating the consult. To find the results of the consultation, please view the patient's reports for the scanned Telemed Consult.
--- NOTE | 2022-06-19 00:22 | MRI_ITS ---
STUDY: MRI BRAIN WITH AND WITHOUT CONTRAST REASON FOR EXAM: Female, 62 years old. ? Seizure with MS history TECHNIQUE: Standardized multiplanar fat and water weighted pulse sequences were obtained. IV 200 CCCLARISCAN was administered for the contrast portion of the examination. COMPARISON: None. FINDINGS: Normal size of the ventricles and extra-axial spaces for the patient''s age. March 18, 2022. There are a few nonspecific white matter lesions without mass effect or restricted diffusion which may be consistent with clinical history of multiple sclerosis or chronic deep white matter ischemic changes. There are no enhancing lesions following contrast administration Normal bilateral basal ganglia. Normal thalami. There is no extra-axial fluid accumulation. Normal flow voids within the major intracranial circulation suggesting patency by spin echo criteria. Normal venous enhancement. There is no enhancing intra-axial or extra-axial abnormality. Normal sella turcica, pituitary gland, infundibular stalk, optic chiasm and hypothalamus. Normal tectal plate and pineal gland. Normal midbrain, yina and medulla. Normal cerebellum. Normal basal cisterns. Normal bilateral temporal bones. Normal bilateral internal auditory canals. No demonstrated orbital abnormality, within the constraints of a routine brain study. Normal visualized paranasal sinuses. Normal calvarium and skull base. Normal visualized soft tissue structures. Normal visualized upper cervical spine. There is a reduction in number of white matter lesions prior study. MRI/Brain W/WO Contrast IMPRESSION: Minor nonspecific periventricular white matter disease with interval improvement since previous study. No evidence for acute infarct. No abnormal enhancement following contrast administration Electronically Signed: Steven Mason MD at 16:08 EDT ,
[2022-06-19] MEDS: LORazepam 2 MG/ML Syringe 0.5 MG IV (00:38)
[2022-06-19 01:00] LABS: Bedside Glucose 143 mg/dL (74-106)
[2022-06-19 01:34] LABS: Magnesium 1.4 mg/dL (1.6-2.6)
[2022-06-19 01:36] LABS: Allen Test Positive; Base Excess -10 mmol/L (-2 to +2); Bicarbonate 16.6 mmol/L (22-26); Blood Gas Specimen Type ART; O2 Delivery Device Room Air; PO2 85 mmHG (75-100); SITE L Radial; SO2 95 % (95-99); Total Carbon Dioxide 18 mmol/L; pCO2 33.3 mmHg (35-45); pH 7.31 (7.35-7.45)
[2022-06-19 01:47] LABS: Ammonia < 10.0 umol/L (11-32)
[2022-06-19] MEDS: levETIRAcetam IV 1,000 MG/100 ML BAG 400 MG IV (02:33)
[2022-06-19 04:58] VITALS: BMI 47.0
[2022-06-19] MEDS: Heparin Injection (Vial) 5,000 UNIT/ML VIAL 5000 UNIT SC ×3 (05:14→21:45)
[2022-06-19 05:18] VITALS: BP 94/58; PULSE 74; RESP 17; TEMP 36.6; O2SAT 98
[2022-06-19 05:22] LABS: Hematocrit 26.5 % (37-47); Hemoglobin 8.3 g/dL (12.0-15.0); Mean Corp Hgb Conc 31.3 g/dL (32-36); Mean Corpuscular Hgb 29.1 pg (27.0-32.0); Mean Platelet Vol. 10.5 fl (6.2-12.0); POSITIVE COUNT YES; POSITIVE MORPHOLOGY YES; Platelet Count 296 K/mm3 (150-450); RBC Distribution Width CV 16.4 % (11.6-14.6); RBC Distribution Width SD 56.1 fl (35.1-43.9); Red Blood Count 2.85 M/mm3 (4.2-5.4); White Blood Count 10.1 K/mm3 (4.4-11.0)
[2022-06-19 05:27] LABS: Differential Indicated MANUAL DIFF
[2022-06-19 05:46] LABS: Anisocytosis 1+; Platelet Estimate ADEQUATE (ADEQ); Red Cell Morphology NORM C+C NORMAL (NORM C&C)
[2022-06-19 05:48] LABS: Absolute Lymphocyte Count 0.91 X10^3/uL (0.83-4.51); Myelocyte 2 % (0-0); Neutrophil-Band 14 % (0-5); Neutrophil-Segmented 65 % (47-70); Total Cells Counted 100 (MANUAL DIFF)
[2022-06-19 05:49] LABS: Eosinophil 2 % (0-5); Lymphocyte 9 % (19-41); Monocyte 8 % (0-10)
[2022-06-19 05:56] LABS: Anion Gap 4 (5-15); BUN 26 mg/dL (7-18); BUN/Creat Ratio 26.1 RATIO (10-20); Calcium,Total 7.5 mg/dL (8.5-10.1); Chloride 118 mmol/L (98-107); EST Glomerular Filtration Rate 60 mL/min (>60); Est Glom Filt Rate - Afr Amer 73 mL/min (>60); Estimated Creatinine Clearance 96.33 ml/min; Glucose 132 mg/dL (74-106); Potassium 3.6 mmol/L (3.5-5.1); Sodium Level 138 mmol/L (136-145)
--- NOTE | 2022-06-19 06:20 | NURSING ---
Pt blood glucose 50 this AM, 1 amp of D50 given, pt up to 140 fter 15 min recheck
[2022-06-19] MEDS: Dextrose 50%-Water 25 GM/50 ML DISP.SYRIN IV (06:46)
[2022-06-19 07:25] LABS: Bedside Glucose 50 mg/dL (74-106)
[2022-06-19 07:32] LABS: Magnesium 2.1 mg/dL (1.6-2.6)
[2022-06-19] MEDS: Arthritis Pain Compound 60 CLICK TUBE TOPICAL ×2 (09:10→21:45)
[2022-06-19] MEDS: Nystatin Powder 15gm Bottle 1 APPLIC TOPICAL ×2 (09:12→21:45)
[2022-06-19] MEDS: Menthol/Lanolin/Calamine/Znox 113 GM Tube 1 APPLIC TOPICAL ×2 (09:12→21:45)
[2022-06-19 09:15] VITALS: BP 94/58; PULSE 71; RESP 18; TEMP 36.3; O2SAT 100
[2022-06-19 12:12] LABS: Pathologist Review Reviewed
[2022-06-19 12:19] LABS: Pathologist Review Reviewed
[2022-06-19 12:21] LABS: Bedside Glucose 97 mg/dL (74-106)
[2022-06-19 13:15] LABS: Bedside Glucose 140 mg/dL (74-106)
[2022-06-19 13:15] LABS: Bedside Glucose 180 mg/dL (74-106)
--- NOTE | 2022-06-19 15:01 | PN_ITS ---
Subjective Subjective Patient seen examined. SHe is much more confused and lethargic today, and could barely wake up to even talk to me. BP continues to run low. Unable to do review of systems due to her confusion. Objective Data Objective Data Vital Signs: Vital Signs Temp Pulse Resp BP Pulse Ox O2 Del Method 97.3 F L 71 18 94/58 L 100 Room Air 06/19/22 09:15 06/19/22 09:15 06/19/22 09:15 06/19/22 09:15 06/19/22 09:15 06/19/22 09:15 Oxygen Delivery Method Room Air Weight: 224 lb 13.944 oz Body Mass Index (BMI) 47.0 Intake & Output: Intake and Output for Last 24 Hours 06/17/22 06/18/22 06/19/22 23:59 23:59 23:59 Intake Total 1710 / 1710 3231.67 / 3231.67 1809 / 1809 Output Total 1200 / 1200 925 / 925 500 / 500 Balance 510 / 510 2306.67 / 2306.67 1309 / 1309 Lab / Micro Data Result Diagrams: 06/19/22 04:16 06/19/22 04:16 Labs: Laboratory Results - last 24 hr 06/18/22 08:26: Diff Path Review Reviewed 06/18/22 16:09: POC Glucose 122 H 06/18/22 23:16: POC Glucose 143 H 06/19/22 00:50: Magnesium 1.4 L, TSH 1.50 06/19/22 00:50: Ammonia < 10.0 L 06/19/22 04:16: WBC 10.1, RBC 2.85 L, Hgb 8.3 L, Hct 26.5 L, MCV 93.0, MCH 29.1, MCHC 31.3 L, RDW Std Deviation 56.1 H, RDW Coeff of Mele 16.4 H, Plt Count 296, MPV 10.5, Neut % (Auto) Not Reportable, Absolute Neuts (auto) 8.0 H, Absolute Lymphs (auto) 0.91, Total Counted 100, Neutrophils % (Manual) 65, Band Neutrophils % 14 H, Lymphocytes % (Manual) 9 L, Monocytes % (Manual) 8, Eosinophils % (Manual) 2, Myelocytes % 2 H, Diff Path Review Reviewed, Platelet Estimate ADEQUATE, RBC Morphology NORM C+C, Anisocytosis 1+ 06/19/22 04:16: Sodium 138, Potassium 3.6, Chloride 118 H, Carbon Dioxide 16.0 L , Anion Gap 4 L, BUN 26 H, Creatinine 1.00, Estim Creat Clear Calc 96.33, Est GFR (MDRD) Af Amer 73, Est GFR (MDRD) Non-Af 60, BUN/Creatinine Ratio 26.1 H, Glucose 132 H, Calcium 7.5 L 06/19/22 04:16: Magnesium 2.1 06/19/22 06:31: POC Glucose 50 L 06/19/22 07:02: POC Glucose 180 H 06/19/22 07:04: POC Glucose 140 H 06/19/22 11:46: POC Glucose 97 Micro: Microbiology 06/12/22 10:50 Blood Culture (Wb) - Right Wrist Blood Culture - Final No growth in 5 days. 06/12/22 10:37 Blood Culture (Wb) - Left Forearm Blood Culture - Final No growth in 5 days. ABG Data ABG results: ABG 06/19/22 01:28 Specimen Type ART Sample Site L Radial pH 7.31 L Bicarbonate Actual 16.6 L Total CO2 18 Base Excess -10 L O2 Saturation 95 ABG pCO2 33.3 L ABG pO2 85 Barak Test Positive O2 Delivery Device Room Air Radiography Diagnostic Testing: Radiology Impression Brain CT 06/18/22 22:20 IMPRESSION: No acute intracranial pathology. Electronically Signed: Franklyn Reynoso DO at 23:27 EDT , Physical Exam Const Constitutional Narrative: very weak and lethargic, encephalopathic Orientation / Consciousness: confused and lethargic HEENT normocephalic, head/scalp atraumatic and moist oral mucous membranes Eyes PERRL and EOMs intact bilaterally Neck no lymphadenopathy, supple, no JVD and thyroid normal Lymph Lymphatic: no lymphadenopathy noted and no lymphedema noted Resp Resp Narrative: mildly diminished breath sounds bibasally, no wheezes or crackles. On room air Cardio regular rate, regular rhythm, S1 normal heart sound, S2 normal heart sound and no murmurs Palpation: normal PMI GI normal to inspection, nondistended, normoactive bowel sounds, soft to palpation, non-tender and non-distended Extremity normal capillary refill, no clubbing, cyanosis or edema and no calf tenderness General Extremity: clubbing and cyanosis Skin Skin Narrative: hyperpigmented rash on toes which is chronic General Skin Exam: no breakdown Neuro Neuro Narrative: very confused, lethargic Assessment & Plan Assessment/Plan (1) Septic shock: (2) Complicated UTI (urinary tract infection): PLAN: Plan #Acute encephalopathy * Possibly due to seizures versus cefepime toxicity. * Patient became very confused and lethargic last night. CT of the brain done was negative for any evidence of stroke or any acute intracranial pathology. * She was given a loading dose of Keppra last night and started on IV Keppra 500 twice daily. * Neurology reviewed patient today recommended increasing Keppra to 750 mg twice daily. I spoke to neurologist who reviewed her EEG and per neurologist, she had a lot of discharges and was a very abnormal EEG. She could not rule out status epilepticus though this could also be due to cefepime toxicity. Recommendation is transfer for continuous EEG in case she is having status epilepticus. * IV Keppra increased to 750 mg twice daily. * To transfer patient to tertiary center for continuous EEG monitoring * ammonia level is <10 * MRI of brain ordered; done, but read is pending #Septic shock due to Pseudomonas UTI * Septic shock has resolved. * has completed a course of IV cefepime * ID on board * initially required levophed, but now off levophed * * #Hypotension * her BP continues to run low, in the 80s and 90s systolic * on midodrine. BP continues to run low * will monitor * #EDWINA on CKD stage IIIb: Resolved. Creatinine down to baseline. #Type 2 diabetes mellitus: On Lantus 40 units daily. Insulin sliding scale. Accu-Cheks ACHS. Hold Lantus in light of patient's encephalopathy. #History of multiple sclerosis with chronic indwelling Valenzuela catheter. Valenzuela catheter changed with this admission. PT OT on board. For precautions. #Hypothyroidism: On Synthroid DVT prophylaxis: Heparin Disposition: for likely dc home tomorrow if BP improves on midodrine Total time spent on evaluation and management of patient, reviewing chart and specialist notes, discussing plan with patient, discussion with nursing and ancillary staff as well as documentation: 58 mins Disposition: To transfer to tertiary facility for continuous EEG monitoring. Charges/Coding Visit Charges Inpatient E&M: 65712 Subs Hosp L3
--- NOTE | 2022-06-19 17:27 | DIALYSIS ---
HD x 3.5 hours on 3k bath UF-2000ml tolerated well Vitals stable throughout tx 1 unit of PRBCs given during tx- report to wanda NINO
[2022-06-19 18:08] LABS: Lactic Acid 1.9 mmol/L (0.4-1.9)
[2022-06-19 18:12] VITALS: BP 102/59; PULSE 75; RESP 18; TEMP 36.4; O2SAT 100
[2022-06-19 18:35] LABS: Bedside Glucose 91 mg/dL (74-106)
--- NOTE | 2022-06-19 18:58 | DS.PCM_ITS ---
Providers Date of Admission: 06/12/22 Date of Discharge: 06/20/22 Primary Care Physician: LAURA FLORES Consultations 06/12/22 15:21 Consult: Infectious Disease Routine Consulting Provider: Robbie Vicente Reason for Consult: Septic shock, pseudomonas UTI only sensitive to IVabx EMERGENT Consult: No Notified: Yes Date Notified: 06/12/22 Time Notified: 13:36 Method of Notification: Text Consult: Drying Rack Changer / Pulmonary Medicine Routine Consulting Provider: Pulmonary Medicine patricia [place] Reason for Consult: Septic shock EMERGENT Consult: No Notified: Yes Date Notified: 06/12/22 Time Notified: 13:35 Method of Notification: Verbal Consult: Onc/Wound/case assistant Routine Comment: Reason for Consult:: Buttock ulcerations Reason For Visit: SEPSIS HYPOTENSION Diagnosis Discharge Diagnosis (1) Septic shock: Status: Acute Code(s): A41.9 - Sepsis, unspecified organism; R65.21 - Severe sepsis with septic shock (2) Complicated UTI (urinary tract infection): Status: Acute Code(s): N39.0 - Urinary tract infection, site not specified Plan #Acute encephalopathy * Possibly due to seizures versus cefepime toxicity. * Patient became very confused and lethargic last night. CT of the brain done was negative for any evidence of stroke or any acute intracranial pathology. * She was given a loading dose of Keppra last night and started on IV Keppra 500 twice daily. * Neurology reviewed patient today recommended increasing Keppra to 750 mg twice daily. I spoke to neurologist who reviewed her EEG and per neurologist, she had a lot of discharges and was a very abnormal EEG. She could not rule out status epilepticus though this could also be due to cefepime toxicity. Recommendation is transfer for continuous EEG in case she is having status epilepticus. * IV Keppra increased to 750 mg twice daily. * To transfer patient to tertiary center for continuous EEG monitoring * ammonia level is <10 * MRI of brain ordered; done, but read is pending #Septic shock due to Pseudomonas UTI * Septic shock has resolved. * has completed a course of IV cefepime * ID on board * initially required levophed, but now off levophed * * #Hypotension * her BP continues to run low, in the 80s and 90s systolic * on midodrine. BP continues to run low * will monitor * #EDWINA on CKD stage IIIb: Resolved. Creatinine down to baseline. #Type 2 diabetes mellitus: On Lantus 40 units daily. Insulin sliding scale. Accu-Cheks ACHS. Hold Lantus in light of patient's encephalopathy. #History of multiple sclerosis with chronic indwelling Valenzuela catheter. Valenzuela catheter changed with this admission. PT OT on board. #Hypothyroidism: On Synthroid DVT prophylaxis: Heparin Total time spent on evaluation and management of patient, reviewing chart and specialist notes, discussing plan with patient, discussion with nursing and ancillary staff as well as documentation: 58 mins Disposition: To transfer to tertiary facility for continuous EEG monitoring. Patient accepted at [facility] Medications at Discharge Home Medications rosuvastatin 40 mg tablet 40 mg PO DAILY cholesterol 03/07/13 glimepiride 4 mg tablet 4 mg PO BID DM 12/21/19 levothyroxine 50 mcg tablet (Synthroid) 50 mcg PO DAILY thyroid 12/21/19 duloxetine 60 mg capsule,delayed release 60 mg PO BID #180 caps 06/30/21 atorvastatin 80 mg tablet 80 mg PO DAILY cholesterol 12/03/21 esomeprazole magnesium 40 mg capsule,delayed release 40 mg PO DAILY stomach 12/03/21 furosemide 40 mg tablet 40 mg PO TID fluid 12/03/21 furosemide 40 mg tablet 80 mg PO BREAKFAST fluid 12/03/21 insulin degludec 200 unit/mL (3 mL) subcutaneous pen (Tresiba FlexTouch U-200 insulin) 80 unit subcut QHS dm 12/03/21 metformin 1,000 mg tablet 1,000 mg PO BID DM 12/03/21 oxycodone-acetaminophen 5 mg-325 mg tablet 1 tab PO TID PRN MS 12/03/21 pregabalin 75 mg capsule 75 mg PO BID pain 12/03/21 semaglutide 1 mg/dose (4 mg/3 mL) subcutaneous pen injector (Ozempic) 1 mg subcut QWEEK dm 12/03/21 buspirone 5 mg tablet 5 mg PO BID #60 tabs 02/04/22 cholecalciferol (vitamin D3) 25 mcg (1,000 unit) tablet (Vitamin D3) 25 mcg PO BID 02/04/22 amoxicillin 875 mg-potassium clavulanate 125 mg tablet 875 mg PO Q12H #20 TABLETS 06/09/22 ondansetron 4 mg disintegrating tablet 4 mg PO Q4H PRN PRN Nausea #10 tabs 06/09/22 baclofen 10 mg tablet 10 mg PO Q6H PRN PRN Muscle Spasm 06/12/22 fingolimod 0.5 mg capsule (YinYangMapensalgomed) 0.5 mg PO DAILY Check with primary doctor 06/12/22 Hospital Course Operations None Procedures Electroencephalogram Summary of Care Provided Minutes Spent on Discharge: 45 Hospital Course: Patient is a 61-year-old female with a past medical history as outlined who was admitted through the ED on 06/12/2022 with a complaint of progressive chills and fatigue. She had been in the ED 2 days prior to admission was diagnosed with UTI. She was given a dose of Rocephin and discharged home with a prescription for Augmentin. However she could not get her Augmentin prescription filled. She came back to the ED on account of worsening symptoms. On admission she was febrile and tachycardic and hypotensive. She was also tachypneic. Blood work done showed WBC of 18.7 with hemoglobin of 11.5 and platelets of 259. Chemistry was significant for creatinine of 1.38. Lactic acid was elevated at 3.6. Chest x-ray showed no acute cardiopulmonary infiltrates. He was started on IV Levophed and hydrated per sepsis protocol but remained hypotensive so she was started on Levophed and admitted to the ICU. She was admitted and managed for septic shock due to UTI. She had a history of multiple drug-resistant organism UTI infections in the past and also had a history of multiple sclerosis. Infectious disease was consulted. She was eventually weaned off of Levophed and transferred out of the ICU to the regular floor. Urine cultures grew Pseudomonas and Proteus. Plan was to keep her on IV antibiotics as there was no oral equivalents. She completed a course of oral antibiotics on 06/18/2022. Hospital course was complicated by patient becoming more debilitated and encephalopathic. This precipitous change necessitated a CT of the brain which showed no evidence of stroke. EEG was done and neurology was consulted. EEG showed diffuse bilateral discharges. Per neurologist, she could not rule out cefepime toxicity or nonconvulsive status epilepticus. Patient was given a loading dose of Keppra. She was also started on scheduled Keppra. Neurology r ecommended transferring patient to tertiary center for continuous EEG monitoring to see if her symptoms were due to nonconvulsive status epilepticus versus cefepime toxicity. Patient was accepted at [facility] and discharged at that facility on 06/20/2022. Patient was seen and examined prior to discharge. She remained confused and lethargic. Unable to do review of systems. Labs and vitals reviewed. Physical Exam Const Constitutional Narrative: very weak and lethargic, encephalopathic Orientation / Consciousness: confused and lethargic HEENT normocephalic, head/scalp atraumatic and moist oral mucous membranes Eyes PERRL and EOMs intact bilaterally Neck no lymphadenopathy, supple, no JVD and thyroid normal Lymph Lymphatic: no lymphadenopathy noted and no lymphedema noted Resp Resp Narrative: mildly diminished breath sounds bibasally, no wheezes or crackles. On room air Cardio regular rate, regular rhythm, S1 normal heart sound, S2 normal heart sound and no murmurs Palpation: normal PMI GI normal to inspection, nondistended, normoactive bowel sounds, soft to palpation, non-tender and non-distended Extremity normal capillary refill, no clubbing, cyanosis or edema and no calf tenderness General Extremity: clubbing and cyanosis Skin Skin Narrative: hyperpigmented rash on toes which is chronic General Skin Exam: no breakdown Neuro Neuro Narrative: very confused, lethargic Weight / BMI Weight Weight: 224 lb 13.944 oz Body Mass Index (BMI) 47.0 ABG / Lab / Microbiology Data Result Diagrams: 06/20/22 04:20 06/20/22 04:20 Laboratory: Laboratory Results - last 24 hr 06/18/22 08:26: Diff Path Review Reviewed 06/18/22 23:16: POC Glucose 143 H 06/19/22 00:50: Magnesium 1.4 L, TSH 1.50 06/19/22 00:50: Ammonia < 10.0 L 06/19/22 04:16: WBC 10.1, RBC 2.85 L, Hgb 8.3 L, Hct 26.5 L, MCV 93.0, MCH 29.1, MCHC 31.3 L, RDW Std Deviation 56.1 H, RDW Coeff of Mele 16.4 H, Plt Count 296, MPV 10.5, Neut % (Auto) Not Reportable, Absolute Neuts (auto) 8.0 H, Absolute Lymphs (auto) 0.91, Total Counted 100, Neutrophils % (Manual) 65, Band Neutrophils % 14 H, Lymphocytes % (Manual) 9 L, Monocytes % (Manual) 8, Eosinophils % (Manual) 2, Myelocytes % 2 H, Diff Path Review Reviewed, Platelet Estimate ADEQUATE, RBC Morphology NORM C+C, Anisocytosis 1+ 06/19/22 04:16: Sodium 138, Potassium 3.6, Chloride 118 H, Carbon Dioxide 16.0 L , Anion Gap 4 L, BUN 26 H, Creatinine 1.00, Estim Creat Clear Calc 96.33, Est GFR (MDRD) Af Amer 73, Est GFR (MDRD) Non-Af 60, BUN/Creatinine Ratio 26.1 H, Glucose 132 H, Calcium 7.5 L 06/19/22 04:16: Magnesium 2.1 06/19/22 06:31: POC Glucose 50 L 06/19/22 07:02: POC Glucose 180 H 06/19/22 07:04: POC Glucose 140 H 06/19/22 11:46: POC Glucose 97 06/19/22 16:33: Lactic Acid 1.9 06/19/22 18:15: POC Glucose 91 Microbiology: Microbiology 06/12/22 10:50 Blood Culture (Wb) - Right Wrist Blood Culture - Final No growth in 5 days. 06/12/22 10:37 Blood Culture (Wb) - Left Forearm Blood Culture - Final No growth in 5 days. ABG: ABG 06/19/22 01:28 Specimen Type ART Sample Site L Radial pH 7.31 L Bicarbonate Actual 16.6 L Total CO2 18 Base Excess -10 L O2 Saturation 95 ABG pCO2 33.3 L ABG pO2 85 Barak Test Positive O2 Delivery Device Room Air Radiography Diagnostic Testing: Radiology Impression Brain CT 06/18/22 22:20 IMPRESSION: No acute intracranial pathology. Electronically Signed: Franklyn Reynoso DO at 23:27 EDT , Brain MRI 06/19/22 00:22 IMPRESSION: Minor nonspecific periventricular white matter disease with interval improvement since previous study. No evidence for acute infarct. No abnormal enhancement following contrast administration Electronically Signed: Steven Mason MD at 16:08 EDT , Meaningful Use Info Meaningful Use Diagnoses (Choose all that apply): None applicable Discharge Plan Admission Admit Date/Time: 06/12/22 13:29 Attending Provider: Inna Abbott Primary Care Provider: YG BUNCH Consulting Providers: Nicolasa Stokes ; Robbie Vicente ; Adebayo Vanegas ; Angel Thorne ; Koko Robb ; Daniel Tinoco ; Smita Giles LOGISTICIAN Discharge Orders/Prescriptions Prescriptions: No Action levothyroxine [Synthroid] 50 mcg tablet 50 mcg PO DAILY glimepiride 4 mg tablet 4 mg PO BID buspirone 5 mg tablet 5 mg PO BID Qty: 60 5RF cholecalciferol (vitamin D3) [Vitamin D3] 25 mcg (1,000 unit) tablet 25 mcg PO BID rosuvastatin 40 MG tablet 40 mg PO DAILY Label Comments: Cholesterol furosemide 40 mg tablet 80 mg PO BREAKFAST Label Comments: TAKE 2 TABLETS EVERY MORNING and 1 IN THE EVENING furosemide 40 mg tablet 40 mg PO TID Label Comments: TAKE 2 TABLETS EVERY MORNING and 1 IN THE EVENING atorvastatin 80 mg tablet 80 mg PO DAILY Label Comments: TAKE 1 TABLET BY MOUTH DAILY oxycodone-acetaminophen 5-325 mg tablet 1 tab PO TID PRN (Reason: MS ) Label Comments: Take one (1) tablet by mouth three times a day, as needed for multiple sclerosis contractures PALLIATIVE PATIENT metformin 1,000 mg tablet 1,000 mg PO BID Label Comments: TAKE 1 TABLET TWICE DAILY esomeprazole magnesium 40 mg capsule,delayed release(DR/EC) 40 mg PO DAILY Label Comments: TAKE 1 CAPSULE EVERY DAY pregabalin 75 mg capsule 75 mg PO BID Label Comments: Take 1 capsule by mouth twice a day Palliative patient insulin degludec [Tresiba FlexTouch U-200] 200 unit/mL (3 mL) insulin pen 80 unit SUBCUT QHS Label Comments: Inject 80 units sub-q every night at bedtime. Ozempic 1 mg/dose (4 mg/3 mL) pen injector 1 mg SUBCUT QWEEK Label Comments: INJECT 1mg under the skin EVERY week FOR 90 DAYS ondansetron [ondansetron] 4 mg tablet,disintegrating 4 mg PO Q4H PRN PRN (Reason: Nausea) Qty: 10 0RF amoxicillin-pot clavulanate [amoxicillin-pot clavulanate] 875-125 mg tablet 875 mg PO Q12H Qty: 20 0RF baclofen 10 mg tablet 10 mg PO Q6H PRN PRN (Reason: Muscle Spasm) fingolimod [Gilenya] 0.5 mg Capsule 0.5 mg PO DAILY duloxetine 60 mg capsule,delayed release(DR/EC) 60 mg PO BID Qty: 180 0RF Referrals / Follow Up: YG BUNCH, LOGISTICIAN-C [Primary Care Provider] - Disposition Disposition (needs filled in before D/C Order can be placed): Acute Care Hospital Charges/Coding Visit Charges Inpatient E&M: 58310 Disch Hosp >30min
[2022-06-19 21:21] LABS: Bedside Glucose 73 mg/dL (74-106)
[2022-06-19 22:10] VITALS: BP 102/55; PULSE 74; RESP 18; TEMP 36.7; O2SAT 99
--- NOTE | 2022-06-19 22:58 | PCM.HOSP.N ---
Hospitalist Note Patient with persistent hypoglycemia, no oral intake, will start low dose D5.
[2022-06-19] MEDS: Acetaminophen 650 MG Suppository RC (23:05)
[2022-06-19] MEDS: Dext 5%-0.45% NS 1,000 ML 30 ML IV (23:24)
[2022-06-20 01:55] LABS: Glucose 76 mg/dL (74-106)
[2022-06-20] MEDS: Sodium Chloride 19.25 MEQ in Dextrose 10%-Water 250 ML 40 MEQ IV (02:48)
[2022-06-20 03:14] VITALS: BP 93/58; PULSE 74; RESP 16; TEMP 36.9; O2SAT 100
[2022-06-20 04:32] LABS: Hematocrit 26.4 % (37-47); Hemoglobin 8.2 g/dL (12.0-15.0); Mean Corp Hgb Conc 31.1 g/dL (32-36); Mean Corpuscular Hgb 28.9 pg (27.0-32.0); POSITIVE COUNT YES; POSITIVE MORPHOLOGY YES; Platelet Count 256 K/mm3 (150-450); RBC Distribution Width CV 16.6 % (11.6-14.6); RBC Distribution Width SD 55.8 fl (35.1-43.9); Red Blood Count 2.84 M/mm3 (4.2-5.4); White Blood Count 9.2 K/mm3 (4.4-11.0)
[2022-06-20] MEDS: Alteplase 2 MG/2 ML Vial IV (04:38)
[2022-06-20 04:48] LABS: Anion Gap 2 (5-15); BUN 24 mg/dL (7-18); BUN/Creat Ratio 24.6 RATIO (10-20); Calcium,Total 7.6 mg/dL (8.5-10.1); Chloride 119 mmol/L (98-107); Creatinine, Serum 0.98 mg/dL (0.55-1.02); EST Glomerular Filtration Rate 62 mL/min (>60); Est Glom Filt Rate - Afr Amer 75 mL/min (>60); Glucose 90 mg/dL (74-106); Potassium 3.3 mmol/L (3.5-5.1); Sodium Level 140 mmol/L (136-145)
[2022-06-20 04:55] LABS: Differential Indicated MANUAL DIFF
--- NOTE | 2022-06-20 05:02 | NURSING ---
Report given to Shameka at [facility] for pt transfer
--- NOTE | 2022-06-20 05:02 | NURSING ---
JUDITH contacted via phone for consent for pt tx, this consent was witness by this RN and charge nurse Nichole Coon
[2022-06-20] MEDS: Heparin Injection (Vial) 5,000 UNIT/ML VIAL 5000 UNIT SC (05:15)
[2022-06-20 05:21] LABS: Lymphocyte 8 % (19-41); Monocyte 6 % (0-10); Myelocyte 3 % (0-0); Neutrophil-Band 1 % (0-5); Neutrophil-Segmented 82 % (47-70); Total Cells Counted 100 (MANUAL DIFF)
[2022-06-20 05:22] LABS: Smudge Cells 1+
[2022-06-20 05:23] LABS: Platelet Estimate ADEQUATE (ADEQ)
[2022-06-20 05:24] LABS: Absolute Neutrophil Count 7.6 X10^3/uL (2.0-7.7)
[2022-06-20 06:00] VITALS: BMI 46.8
[2022-06-20] MEDS: Dextrose 50%-Water 25 GM/50 ML DISP.SYRIN IV (06:02)
--- NOTE | 2022-06-20 06:16 | NURSING ---
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
[2022-06-20 07:00] LABS: Bedside Glucose 65 mg/dL (74-106)
[2022-06-20 07:00] LABS: Bedside Glucose 91 mg/dL (74-106)
--- NOTE | 2022-06-20 08:02 | NURSING ---
This RN removed cathflow syringe with no result. Primary RN aware.
--- NOTE | 2022-06-20 09:02 | NURSING ---
transport team in room with pt
--- NOTE | 2022-06-20 10:49 | CASEMGMT ---
Social Work Pt was discharged today. SW left a message for APS to let them know, SW also left a message for pt's rehabilitation caseworker Wendi Browne to let her know pt was discharged. NUNU Motley
[2022-06-20 12:11] LABS: Bedside Glucose 65 mg/dL (74-106)
[2022-06-22 11:57] LABS: Pathologist Review Reviewed
--- NOTE | 2022-06-22 15:55 | CASEMGMT ---
JANELL sent d/c orders to patient's [facility] wrapper caser, Wendi rBowne per her request. Adriana BURRIS
== END 2022-06-20 09:17 | disposition short-term general hospital (02) | DRG 698 ==
LOC: ED 13:25 → ICU 13:30 → PCU 06-17 10:36
PROVIDERS: Family Medicine; Internal Medicine Critical Care Medicine; Admitting Provider Internal Medicine; Emergency Provider Emergency Medicine; PCP Nurse Practitioner Family; Visit Provider Student in an Organized Health Care Education/Training Program
DX: T83.511A Infection and inflammatory reaction due to indwelling urethral catheter, initial encounter (principal); A41.52 Sepsis due to Pseudomonas; R65.21 Severe sepsis with septic shock; G93.49 Other encephalopathy; E87.20 Acidosis, unspecified; E87.1 Hypo-osmolality and hyponatremia; N17.9 Acute kidney failure, unspecified; Z68.42 Body mass index [BMI] 45.0-49.9, adult; R47.01 Aphasia; D63.1 Anemia in chronic kidney disease; I95.9 Hypotension, unspecified; R56.9 Unspecified convulsions; E11.22 Type 2 diabetes mellitus with diabetic chronic kidney disease; N18.32 Chronic kidney disease, stage 3b; E66.01 Morbid (severe) obesity due to excess calories; G35 Multiple sclerosis; E11.65 Type 2 diabetes mellitus with hyperglycemia; E11.42 Type 2 diabetes mellitus with diabetic polyneuropathy; Z79.4 Long term (current) use of insulin; E03.9 Hypothyroidism, unspecified; E86.0 Dehydration; E87.6 Hypokalemia; F41.9 Anxiety disorder, unspecified; E55.9 Vitamin D deficiency, unspecified; H55.89 Other irregular eye movements; B96.4 Proteus (mirabilis) (morganii) as the cause of diseases classified elsewhere; N39.0 Urinary tract infection, site not specified; G89.4 Chronic pain syndrome; F32.A Depression, unspecified; T36.1X5A Adverse effect of cephalosporins and other beta-lactam antibiotics, initial encounter; X58.XXXA Exposure to other specified factors, initial encounter; Z74.01 Bed confinement status; Z79.84 Long term (current) use of oral hypoglycemic drugs; Z79.899 Other long term (current) drug therapy
CPT/HCPCS: 36415; 36600; 51702; 70450; 70553; 71045; 80048; 80053; 81001; 82140; 82728; 82803; 82947; 82962; 83010; 83540; 83550; 83605; 83615; 83735; 84100; 84443; 85025; 85045; 85610; 85730; 87040; 87077; 87086; 87088; 87186; 93005; 93971; 94762; 95819; 96365; 96366; 97161; 97802; 99285; A9575; J2997; J7030; J7040; J7050; A4216; J7799

== ENCOUNTER 2022-07-06 12:36 | Outpatient (RCR) | payer MEDICARE, MEDICAID, SELFPAY ==
[2022-07-06 15:15] LABS: Absolute Lymphocyte Count 0.82 X10^3/uL (0.83-4.51); Absolute Neutrophil Count 3.7 X10^3/uL (2.0-7.7); Basophil% 1.8 % (0-1); Differential Indicated SCAN CRITERIA MET; Eosinophil# 0.32 X10^3/uL; Eosinophils% 5.8 % (0-5); Hematocrit 27.6 % (37-47); Hemoglobin 8.2 g/dL (12.0-15.0); Lymphocyte # 0.82 X10^3/ul (0.83-4.51); Lymphocyte % 14.7 % (19-41); Mean Corp Hgb Conc 29.7 g/dL (32-36); Mean Corpuscular Volume 97.5 fL (81-99); Mean Platelet Vol. 10.1 fl (6.2-12.0); Monocyte# 0.52 X10^3/uL; Monocyte% 9.4 % (0-10); NRBC Flagged by Analyzer 0 % (0-5); Neutrophil # 3.74 X10^3/uL (2.7-7.7); Neutrophil % 67.2 % (47-70); POSITIVE MORPHOLOGY YES; Platelet Count 355 K/mm3 (150-450); RBC Distribution Width CV 18.5 % (11.6-14.6); RBC Distribution Width SD 66.3 fl (35.1-43.9); Red Blood Count 2.83 M/mm3 (4.2-5.4); White Blood Count 5.6 K/mm3 (4.4-11.0)
[2022-07-06 15:43] LABS: Differential Comment SCANNED; Polychromasia RARE
== END 2022-07-29 23:59 ==
LOC: HHLAB 12:36
PROVIDERS: PCP Nurse Practitioner Family; Visit Provider Nurse Practitioner Family
DX: R33.9 Retention of urine, unspecified (principal); Z46.6 Encounter for fitting and adjustment of urinary device
CPT/HCPCS: 85025

== ENCOUNTER 2022-08-08 09:27 | Inpatient (IN) | payer MEDICARE, MEDICAID, SELFPAY ==
[2022-08-08] VITALS (7 sets, daily range): BP systolic 123–150; BP diastolic 45–84; PULSE 55–65; RESP 13–18; TEMP 35.6–36.6; O2SAT 97–100; BMI 40.5; BMI 39.2
--- NOTE | 2022-08-08 09:56 | CT_ITS ---
HISTORY: pressure ulcer right buttock with drainage. TECHNIQUE: Routine CT was performed of the pelvis after the intravenous restriction 100 cc Isovue-370. 2-D reformats were performed by the technologist. A radiation dose optimization technique was used for this scan. COMPARISON: None. FINDINGS: PELVIC ORGANS: Edema and striated enhancement of the right kidney with small cystic lesions, multiple calculi, and mild hydronephrosis with ureteral stent in place and a 5 mm distal ureteral calculus. Complex 1.3 cm right medial cystic lesion. Mild right urothelial enhancement. Mild left hydronephrosis with multiple calculi extending into the pelvis measuring up to 13 mm in the ureteropelvic junction and mild hydronephrosis with ureteral stent in place. Tubal ligation clips. Intrauterine device into the cervix. Lobulated 3 cm left uterine lesion and heterogeneous 2.6 cm calcified right uterine fundal lesion. Valenzuela catheter decompression of the thick-walled bladder. 9 mm bladder and 8 mm ureteral calculi noted. Perirectal and perianal soft tissue thickening. BONES:Osteopenia without acute fracture or cortical erosion identified. JOINTS: No dislocation.Degenerative changes of the pelvis and hips. SOFT TISSUES: Right ischial decubitus ulcer with a 3.9 x 4 cm right ischial rectal fossa/right medial buttock collection containing air, trace fluid and edema. Large amount of subcutaneous edema lateral to the left hip and of the bilateral thighs. CT/Pelvis WITH IV Contrast IMPRESSION: Right ischial decubitus ulcer with a right ischial rectal fossa/medial buttock residual abscess or phlegmon. Striated enhancement of the right kidney and mild urothelial enhancement concerning for pyelonephritis and urinary tract infection. Multiple large right renal calculi with mild hydronephrosis, ureteral stent in place, and 5 mm distal ureteral calculus. 1.3 cm complex right medial cystic lesion, possible renal abscess. Multiple left renal calculi with a large UVJ calculus. Mild left hydronephrosis with ureteral stent in place. Bladder and ureteral calculi. Cystitis. Migration of intrauterine device into the cervix. Uterine leiomyomata. Electronically Signed: Grace Marcus MD at 13:26 EDT ,
--- NOTE | 2022-08-08 09:59 | EX.ED.DYSGE1 ---
HPI History of Present Illness Chief Complaint: Wound Detail of Chief Complaint: Wound to right buttock Informant: patient Narrative Narrative: Patient presents to the emergency department via EMS from home. Patient has concerns about a wound to her right buttock. Patient states that she developed a bedsore 2 weeks ago that her caregiver is now concerned about. The bedsore started draining purulent material like a faucet. Patient was started on oral antibiotics and has had about 8 doses but she is not sure the name of the antibiotic. She denies any fevers or chills or sweats. Patient has history of MS. Patient nonambulatory. Patient also has an indwelling Valenzuela catheter. Patient denies significant pain. [facility] Medical History Anxiety Bedbound delivery delivered Depression History of multiple sclerosis Lymphedema Morbid obesity Multiple sclerosis Polyneuropathy Type II diabetes mellitus Vitamin d deficiency Home Medications glimepiride 4 mg tablet 4 mg PO BID DM 12/21/19 [History Last Taken 12/02/21] levothyroxine 50 mcg tablet (Synthroid) 50 mcg PO DAILY thyroid 12/21/19 [History Last Taken 12/02/21] duloxetine 60 mg capsule,delayed release 60 mg PO BID #180 caps 06/30/21 [Rx Last Taken 12/02/21] atorvastatin 80 mg tablet 80 mg PO DAILY cholesterol 12/03/21 [History Last Taken 12/02/21] esomeprazole magnesium 40 mg capsule,delayed release 40 mg PO DAILY stomach 12/03/21 [History Last Taken 12/02/21] furosemide 40 mg tablet 80 mg PO BREAKFAST fluid 12/03/21 [History Last Taken 12/02/21] insulin degludec 200 unit/mL (3 mL) subcutaneous pen (Tresiba FlexTouch U-200 insulin) 50 unit subcut QHS dm 12/03/21 [History Last Taken 12/02/21] metformin 1,000 mg tablet 1,000 mg PO BID DM 12/03/21 [History Last Taken 12/02/21] oxycodone-acetaminophen 5 mg-325 mg tablet 1 tab PO TID PRN MS 12/03/21 [History Last Taken 12/03/21] pregabalin 75 mg capsule 75 mg PO BID pain 12/03/21 [History Last Taken 12/02/21] semaglutide 1 mg/dose (4 mg/3 mL) subcutaneous pen injector (Ozempic) 1 mg subcut QWEEK dm 12/03/21 [History Last Taken 11/29/21] buspirone 5 mg tablet 5 mg PO BID #60 tabs 02/04/22 [Rx Last Taken Unknown] cholecalciferol (vitamin D3) 25 mcg (1,000 unit) tablet (Vitamin D3) 25 mcg PO BID 02/04/22 [History Last Taken Unknown] ondansetron 4 mg disintegrating tablet 4 mg PO Q4H PRN PRN Nausea #10 tabs 06/09/22 [Rx Last Taken Unknown] baclofen 10 mg tablet 10 mg PO Q6H PRN PRN Muscle Spasm 06/12/22 [History Last Taken Unknown] Allergy/AdvReac Type Severity Reaction Status Date / Time ampicillin [From Unasyn] Allergy Severe Rash Verified 02/04/22 12:02 sulbactam [From Unasyn] Allergy Severe Rash Verified 02/04/22 12:02 ciprofloxacin [From Cipro] Allergy Hives Verified 02/04/22 12:02 ciprofloxacin HCl Allergy Hives Verified 02/04/22 12:02 [From Cipro] clindamycin HCl Allergy Hives Verified 02/04/22 12:02 [From Cleocin] clindamycin palmitate HCl Allergy Hives Verified 02/04/22 12:02 [From Cleocin] clindamycin phosphate Allergy Hives Verified 02/04/22 12:02 [From Cleocin] morphine Allergy Hives Verified 02/04/22 12:02 sulfamethoxazole Allergy Hives Verified 02/04/22 12:02 [From Bactrim] trimethoprim [From Bactrim] Allergy Hives Verified 02/04/22 12:02 hydromorphone HCl AdvReac messes Verified 02/04/22 12:02 [From Dilaudid] with my brain Family History Unknown Multiple sclerosis 1st cousin Father Cancer shot examiner, black lung, Lung CA. Mother Heart disease Diabetes Heart failure Surgical History H/O hernia repair History of cholecystectomy Social History household members: spouse Smoking Status: Never smoker alcohol intake: never substance use type: does not use ROS ROS ED Review of Systems ROS Unobtainable: other Constitutional Constitutional ED: Reports lethargy; Denies chills, fever(s), sweats or weight loss Eyes Eyes: Denies blurry vision, change in vision or diplopia ENT ENT ED: Denies rhinorrhea or sore throat Cardiovascular Cardiovascular: Denies chest pain, orthopnea or racing heartbeat Respiratory/Chest Respiratory/Chest: Denies cough, dyspnea, dyspnea on exertion, orthopnea or sputum Gastrointestinal Gastrointestinal: Denies abdominal pain, diarrhea, nausea or vomiting Genitourinary Genitourinary ED: Denies dysuria, hematuria or urinary frequency Musculoskeletal Musculoskeletal: Reports other Details: Wound to right buttock with purulent drainage ; Denies arthralgias, back pain, myalgias or neck pain Integumentary Denies abscess, Abrasions or rash Neurologic Neurologic: Denies headache(s) or weakness Psychiatric Psychiatric: Denies anxiety, depression or suicidal thoughts Endocrine Endocrinology: Denies polydipsia, polyphagia or polyuria Hematologic/Lymphatic Hematologic/Lymphatic: Denies easy bleeding, easy bruising or lymphadenopathy Allergic/Immunologic Allergic/Immunologic ED: Denies mouth swelling, tongue swelling or urticaria EXAM Physical Exam Const Vital Signs: 08/08/22 09:30 08/08/22 10:32 08/08/22 13:22 Temperature 96.1 F L 97 F L Temperature Source Temporal Temporal Pulse Rate 56 L 55 L 55 L Respiratory Rate 18 18 13 Blood Pressure 123/75 H 138/79 H 128/74 H Blood Pressure Mean 91 98 92 Pulse Ox 100 97 98 Oxygen Delivery Method Room Air Room Air Room Air 08/08/22 13:24 Temperature 97.5 F L Temperature Source Temporal Pulse Rate 56 L Respiratory Rate 16 Blood Pressure 150/84 H Blood Pressure Mean 106 Pulse Ox 98 Oxygen Delivery Method Room Air Positive well nourished and well developed General Appearance ED: well developed and NAD HEENT Reports TM's clear and moist mucous membranes normocephalic and atraumatic; Negative for trauma or tenderness Tympanic Membrane ED: Yes TM's clear Eyes PERRL and EOMs intact bilaterally General Eye ED: Negative for pale conjunctiva or scleral icterus Neck no lymphadenopathy, supple and no JVD General: Negative for tenderness Chest Wall inspection of chest normal and palpation of chest normal Chest: Negative for tenderness Resp normal respiratory effort and clear to auscultation bilaterally Effort and Inspection: Negative for respiratory distress or pain with movement Auscultation: Negative for rhonchi, wheezes or diminished lung sounds Cardio regular rate, regular rhythm, S1 normal heart sound, S2 normal heart sound and no murmurs Peripheral Pulses: pulses 2+ throughout GI normal to inspection, nondistended, normoactive bowel sounds, soft to palpation, non-tender, non-distended and no masses Back/Spine no CVA tenderness and no thoracic nor lumbar tenderness Back/Spine Narrative: Evaluation of the patient's back does reveal a wound to the right buttock measuring approximately in diameter with purulent drainage noted on the dressing. We were able to obtain cultures of the wound. No significant cellulitic changes. Upon probing it does appear to go into the muscle of the buttock. Extremity normal to inspection General Extremety ED: Negative for edema General Extremity: Negative for edema Neuro oriented x3, CN's II-XII intact bilaterally, no sensory deficits noted and gait normal Sensorium / Orientation: awake, alert, oriented to person, oriented to place and oriented to time Motor Exam: strength 5/5 throughout and strength abnormal Psych mental status grossly normal Skin no rashes or lesions noted and no wounds MDM MDM MDM Narrative Medical decision making narrative: Patient with 2-week history of wound to right buttock now with purulent drainage. We will obtain lab work and CT scan of the area to evaluate further. I did obtain aerobic and anaerobic cultures. IV line established and CBC with differential obtained showed a white count of 8.7 with hemoglobin 12 and hematocrit 39.6. Platelet count 413. Lactate normal at 0.9. Chemistries unremarkable. BUN 24 and creatinine 1.4. Urinalysis positive for UTI. Urine culture was sent. Patient had a CT scan of the pelvis that showed a decubitus ulcer with phlegmon right buttock. Also patient noted to have ureteral stents and multiple kidney stones. Patient empirically started on vancomycin and Levaquin as she has multiple drug allergies. Case will be discussed with hospitalist to evaluate patient for admission. Lab Data Attestation: I reviewed the patient's lab results. Labs: Laboratory Results - last 24 hr 08/08/22 08/08/22 08/08/22 10:10 10:10 10:10 WBC 8.7 RBC 4.18 L Hgb 12.3 Hct 39.6 MCV 94.7 MCH 29.4 MCHC 31.1 L RDW Std Deviation 55.8 H RDW Coeff of Mele 16.0 H Plt Count 413 MPV 9.5 Immature Gran % (Auto) 0.900 Neut % (Auto) 73.9 H Lymph % (Auto) 11.7 L [place] % (Auto) 8.7 Eos % (Auto) 4.0 Baso % (Auto) 0.8 Absolute Neuts (auto) 6.4 Absolute Lymphs (auto) 1.02 Nucleated RBC % 0 Sodium Cancelled Potassium Cancelled Chloride Cancelled Carbon Dioxide Cancelled Anion Gap Cancelled BUN Cancelled Creatinine Cancelled Estim Creat Clear Calc Cancelled Est GFR (MDRD) Af Amer Cancelled Est GFR (MDRD) Non-Af Cancelled BUN/Creatinine Ratio Cancelled Glucose Cancelled Lactic Acid 0.9 Calcium Cancelled Urine Color Urine Clarity Urine pH Ur Specific [place] Urine Protein Urine Glucose (UA) Urine Ketones Urine Occult Blood Urine Nitrite Urine Bilirubin Urine Urobilinogen Ur Leukocyte Esterase Urine RBC Urine WBC Ur Squamous Epith Cells Urine Bacteria Urine Mucus 08/08/22 08/08/22 10:47 11:00 WBC RBC Hgb Hct MCV MCH MCHC RDW Std Deviation RDW Coeff of Mele Plt Count MPV Immature Gran % (Auto) Neut % (Auto) Lymph % (Auto) [place] % (Auto) Eos % (Auto) Baso % (Auto) Absolute Neuts (auto) Absolute Lymphs (auto) Nucleated RBC % Sodium 135 L Potassium 3.4 L Chloride 99 Carbon Dioxide 28.0 Anion Gap 8 BUN 24 H Creatinine 1.40 H Estim Creat Clear Calc 59.37 Est GFR (MDRD) Af Amer 49 L Est GFR (MDRD) Non-Af 41 L BUN/Creatinine Ratio 17.1 Glucose 155 H Lactic Acid Calcium 9.1 Urine Color Yellow Urine Clarity Sl. Cloudy Urine pH 6.5 Ur Specific [place] 1.015 Urine Protein 500 H Urine Glucose (UA) Normal Urine Ketones Negative Urine Occult Blood 250 H Urine Nitrite Positive H Urine Bilirubin Negative Urine Urobilinogen Normal Ur Leukocyte Esterase 500 H Urine RBC 50-100 SEEN Urine WBC >100 SEEN Ur Squamous Epith Cells 0 SEEN Urine Bacteria 2+ Urine Mucus 0 SEEN Radiography Diagnostic Testing: Clinical Impression(s) from Imaging Studies Pelvis CT 08/08/22 09:56 IMPRESSION: Right ischial decubitus ulcer with a right ischial rectal fossa/medial buttock residual abscess or phlegmon. Striated enhancement of the right kidney and mild urothelial enhancement concerning for pyelonephritis and urinary tract infection. Multiple large right renal calculi with mild hydronephrosis, ureteral stent in place, and 5 mm distal ureteral calculus. 1.3 cm complex right medial cystic lesion, possible renal abscess. Multiple left renal calculi with a large UVJ calculus. Mild left hydronephrosis with ureteral stent in place. Bladder and ureteral calculi. Cystitis. Migration of intrauterine device into the cervix. Uterine leiomyomata. Electronically Signed: Grace Marcus MD at 13:26 EDT , Discharge Plan Dx/Rx/DC Orders Clinical Impression: Decubitus ulcer, infected, UTI (urinary tract infection), Family history of MS (multiple sclerosis) Disposition Disposition: Acute Care Hospital [facility]
[2022-08-08] MEDS: 0.9% Normal Saline 1,000 ML 150 ML IV ×2 (10:19→21:36)
[2022-08-08 10:27] LABS: Absolute Lymphocyte Count 1.02 X10^3/uL (0.83-4.51); Absolute Neutrophil Count 6.4 X10^3/uL (2.0-7.7); Basophil# 0.07 X10^3/uL; Basophil% 0.8 % (0-1); Eosinophil# 0.35 X10^3/uL; Hematocrit 39.6 % (37-47); Hemoglobin 12.3 g/dL (12.0-15.0); Lymphocyte # 1.02 X10^3/ul (0.83-4.51); Lymphocyte % 11.7 % (19-41); Mean Corp Hgb Conc 31.1 g/dL (32-36); Mean Corpuscular Hgb 29.4 pg (27.0-32.0); Mean Corpuscular Volume 94.7 fL (81-99); Mean Platelet Vol. 9.5 fl (6.2-12.0); Monocyte# 0.76 X10^3/uL; Monocyte% 8.7 % (0-10); NRBC Flagged by Analyzer 0 % (0-5); Neutrophil # 6.41 X10^3/uL (2.7-7.7); Neutrophil % 73.9 % (47-70); Platelet Count 413 K/mm3 (150-450); RBC Distribution Width SD 55.8 fl (35.1-43.9); Red Blood Count 4.18 M/mm3 (4.2-5.4); White Blood Count 8.7 K/mm3 (4.4-11.0)
[2022-08-08 10:50] LABS: Mucous, Urine 0 SEEN /hpf (<or=2+); Squamous Epithelial Cells - UA 0 SEEN /hpf (5-10)
--- NOTE | 2022-08-08 10:54 | NURSING ---
GREEN TOP NEEDS REDRAWN
[2022-08-08 10:55] LABS: Lactic Acid 0.9 mmol/L (0.4-1.9)
[2022-08-08 11:01] LABS: Color, Urine Yellow (Yellow); Glucose, Dipstick Normal (Normal); Ketone-Dipstick Negative (Negative); Leukocyte Esterase-Dipstick 500 /ul (Negative); Nitrite-Dipstick Positive (Negative); Occult Blood-Urine 250 /ul (Negative); Protein-Dipstick 500 mg/dl (Negative); Specific Gravity, Urine 1.015 (1.002-1.030); Urine Bilirubin Dipstick Negative (Negative); Urine Clarity Sl. Cloudy (Clear); Urine Urobilinogen Normal (Normal); Urine pH 6.5 (5.0 - 8.0)
[2022-08-08 11:21] LABS: Bacteria 2+ /hpf (None Seen); Red Blood Cells-Urine 50-100 SEEN /hpf (0-5); White Blood Cells >100 SEEN /hpf (0-5)
[2022-08-08 11:27] LABS: Anion Gap 8 (5-15); BUN 24 mg/dL (7-18); BUN/Creat Ratio 17.1 RATIO (10-20); Calcium,Total 9.1 mg/dL (8.5-10.1); Chloride 99 mmol/L (98-107); EST Glomerular Filtration Rate 41 mL/min (>60); Est Glom Filt Rate - Afr Amer 49 mL/min (>60); Estimated Creatinine Clearance 59.37 ml/min; Glucose 155 mg/dL (74-106); Potassium 3.4 mmol/L (3.5-5.1); Sodium Level 135 mmol/L (136-145)
[2022-08-08] MEDS: levoFLOXacin IV 750 MG/150 ML BAG 100 MG IV (13:15)
--- NOTE | 2022-08-08 13:16 | ED.RN ---
Pt declines changing into hospital gown. She states the sleeveless gown she's currently wearing is much more comfortable and keeps her covered better than a hospital gown.
--- NOTE | 2022-08-08 14:01 | NURSING ---
DR NIEVES BAIN
--- NOTE | 2022-08-08 14:11 | NURSING ---
MED SURG PICKETT INFECTED DECUBITUS ULCER, UTI, HX OF MS
--- NOTE | 2022-08-08 15:00 | PCM.HP.STD ---
HPI - General General Date of Admission: 08/08/22 Date of Service: 08/08/22 Chief Complaint: Decubitus ulcer HPI Narrative MARIA D SMITH, is a 62 F with a history of MS, chronic catheter with multiple MDRO UTIs and diabetes who presented to [facility] 08/08/2022 due to nonhealing decubitus ulcer she has had right buttock wound for the past 2 weeks that has been worsening and is been draining purulent material and she was started on antibiotics and took about 8 doses but this was not improving so she was advised to the hospital. Patient denies any fevers or chills and has no physical complaints whatsoever but in the ED was found to have EDWINA and UTI and a CT of her pelvis demonstrated concern for pyelonephritis, there is a 1.3 cm complex right medial cystic lesion as well and multiple renal calculi and mild hydronephrosis. Hospitalist consulted for admission. Evaluated patient at bedside and she reports that overall she is not feeling different from baseline. A month ago was hospitalized in [facility] and reports she felt crampy flank pain at that time and had kidney stones and required stent placement bilaterally and was subsequently discharged. Her follow-up supposed to be in early August with the urologist Dr. Manning. [facility] Medical History (Updated 08/08/22 @ 15:[address] Nicolasa Stokes MD) Anxiety Bedbound Bilateral knee pain delivery delivered Depression Family history of MS (multiple sclerosis) Fatigue History of multiple sclerosis Kidney stones Lymphedema MDRO (multiple drug resistant organisms) resistance Morbid obesity Multiple sclerosis Muscle spasm Polyneuropathy Type II diabetes mellitus Vitamin A deficiency Home Medications glimepiride 4 mg tablet 4 mg PO BID DM 12/21/19 [History Last Taken 12/02/21] levothyroxine 50 mcg tablet (Synthroid) 50 mcg PO DAILY thyroid 12/21/19 [History Last Taken 12/02/21] duloxetine 60 mg capsule,delayed release 60 mg PO BID #180 caps 06/30/21 [Rx Last Taken 12/02/21] atorvastatin 80 mg tablet 80 mg PO DAILY cholesterol 12/03/21 [History Last Taken 12/02/21] esomeprazole magnesium 40 mg capsule,delayed release 40 mg PO DAILY stomach 12/03/21 [History Last Taken 12/02/21] furosemide 40 mg tablet 80 mg PO BREAKFAST fluid 12/03/21 [History Last Taken 12/02/21] insulin degludec 200 unit/mL (3 mL) subcutaneous pen (Tresiba FlexTouch U-200 insulin) 50 unit subcut QHS dm 12/03/21 [History Last Taken 12/02/21] metformin 1,000 mg tablet 1,000 mg PO BID DM 12/03/21 [History Last Taken 12/02/21] oxycodone-acetaminophen 5 mg-325 mg tablet 1 tab PO TID PRN MS 12/03/21 [History Last Taken 12/03/21] pregabalin 75 mg capsule 75 mg PO BID pain 12/03/21 [History Last Taken 12/02/21] semaglutide 1 mg/dose (4 mg/3 mL) subcutaneous pen injector (Ozempic) 1 mg subcut QWEEK dm 12/03/21 [History Last Taken 11/29/21] buspirone 5 mg tablet 5 mg PO BID #60 tabs 02/04/22 [Rx Last Taken Unknown] cholecalciferol (vitamin D3) 25 mcg (1,000 unit) tablet (Vitamin D3) 25 mcg PO BID 02/04/22 [History Last Taken Unknown] ondansetron 4 mg disintegrating tablet 4 mg PO Q4H PRN PRN Nausea #10 tabs 06/09/22 [Rx Last Taken Unknown] baclofen 10 mg tablet 10 mg PO Q6H PRN PRN Muscle Spasm 06/12/22 [History Last Taken Unknown] Allergy/AdvReac Type Severity Reaction Status Date / Time ampicillin [From Unasyn] Allergy Severe Rash Verified 02/04/22 12:02 sulbactam [From Unasyn] Allergy Severe Rash Verified 02/04/22 12:02 ciprofloxacin [From Cipro] Allergy Hives Verified 02/04/22 12:02 ciprofloxacin HCl Allergy Hives Verified 02/04/22 12:02 [From Cipro] clindamycin HCl Allergy Hives Verified 02/04/22 12:02 [From Cleocin] clindamycin palmitate HCl Allergy Hives Verified 02/04/22 12:02 [From Cleocin] clindamycin phosphate Allergy Hives Verified 02/04/22 12:02 [From Cleocin] morphine Allergy Hives Verified 02/04/22 12:02 sulfamethoxazole Allergy Hives Verified 02/04/22 12:02 [From Bactrim] trimethoprim [From Bactrim] Allergy Hives Verified 02/04/22 12:02 hydromorphone HCl AdvReac messes Verified 02/04/22 12:02 [From Dilaudid] with my brain Family History Unknown Multiple sclerosis 1st cousin Father Cancer letter of credit document examiner, black lung, Lung CA. Mother Heart disease Diabetes Heart failure Surgical History H/O hernia repair History of cholecystectomy Social History household members: spouse Smoking Status: Never smoker alcohol intake: never substance use type: does not use ROS ROS Narrative General: Denies fever/chills HENT: Denies headache, denies stuffy nose, denies sore throat EYES: Denies changes in vision Resp: Denies cough, denies shortness of breath Cardiac: Denies chest pain GI: Denies abdominal pain : Chronic Valenzuela cath Extremity: Left leg in brace due left knee fracture found MSK: Chronically wheelchair-bound Neuro: Altered sensation in lower extremities Heme: Denies any bleeding or bruising Skin: Has decubitus ulcer Psychiatric: No complaints voiced Vital Signs Vital Signs Vital Signs: 08/08/22 09:30 08/08/22 10:32 08/08/22 13:22 Temperature 96.1 F L 97 F L Temperature Source Temporal Temporal Pulse Rate 56 L 55 L 55 L Respiratory Rate 18 18 13 Blood Pressure 123/75 H 138/79 H 128/74 H Blood Pressure Mean 91 98 92 Pulse Ox 100 97 98 Oxygen Delivery Method Room Air Room Air Room Air 08/08/22 13:24 08/08/22 14:19 Temperature 97.5 F L 98 F Temperature Source Temporal Temporal Pulse Rate 56 L 65 Respiratory Rate 16 17 Blood Pressure 150/84 H 131/61 H Blood Pressure Mean 106 84 Pulse Ox 98 100 Oxygen Delivery Method Room Air Room Air Weight Weight: 88 kg Body Mass Index (BMI) 40.5 Physical Exam Narrative General: Alert, oriented, no apparent distress HEENT: Atraumatic Eyes: Anicteric, normal conjunctiva, extraocular movements grossly intact Neck: Supple Respiratory: Clear to auscultation bilaterally, normal respiratory effort Cardiovascular: Regular rate and rhythm GI: Soft, nontender, nondistended Extremities: Has some erythema on right medial calf without drainage Musculoskeletal: Does not move lower extremities, moves upper extremities without difficulty Neuro: Has chronic deficits from MS, not using lower extremities Skin: Patient has right buttock ulcer, additionally has some erythema on right medial calf with no drainage, chronic changes of bilateral lower extremities Psych: Cooperative Results Lab / Micro Data Result Diagrams: 08/08/22 10:10 08/08/22 11:00 Labs: Laboratory Results - last 24 hr 08/08/22 10:10: WBC 8.7, RBC 4.18 L, Hgb 12.3, Hct 39.6, MCV 94.7, MCH 29.4, MCHC 31.1 L, RDW Std Deviation 55.8 H, RDW Coeff of Mele 16.0 H, Plt Count 413, MPV 9.5, Immature Gran % (Auto) 0.900, Neut % (Auto) 73.9 H, Lymph % (Auto) 11.7 L, [place] % (Auto) 8.7, Eos % (Auto) 4.0, Baso % (Auto) 0.8, Absolute Neuts (auto) 6.4, Absolute Lymphs (auto) 1.02, Nucleated RBC % 0 08/08/22 10:10: Sodium Cancelled, Potassium Cancelled, Chloride Cancelled, Carbon Dioxide Cancelled, Anion Gap Cancelled, BUN Cancelled, Creatinine Cancelled, Estim Creat Clear Calc Cancelled, Est GFR (MDRD) Af Amer Cancelled, Est GFR (MDRD) Non-Af Cancelled, BUN/Creatinine Ratio Cancelled, Glucose Cancelled, Calcium Cancelled 08/08/22 10:10: Lactic Acid 0.9 08/08/22 10:47: Urine Color Yellow, Urine Clarity Sl. Cloudy, Urine pH 6.5, Ur Specific [place] 1.015, Urine Protein 500 H, Urine Glucose (UA) Normal, Urine Ketones Negative, Urine Occult Blood 250 H, Urine Nitrite Positive H, Urine Bilirubin Negative, Urine Urobilinogen Normal, Ur Leukocyte Esterase 500 H, Urine RBC 50-100 SEEN, Urine WBC >100 SEEN, Ur Squamous Epith Cells 0 SEEN, Urine Bacteria 2+, Urine Mucus 0 SEEN 08/08/22 11:00: Sodium 135 L, Potassium 3.4 L, Chloride 99, Carbon Dioxide 28.0, Anion Gap 8, BUN 24 H, Creatinine 1.40 H, Estim Creat Clear Calc 59.37, Est GFR (MDRD) Af Amer 49 L, Est GFR (MDRD) Non-Af 41 L, BUN/Creatinine Ratio 17.1, Glucose 155 H, Calcium 9.[address] 08/08/22 09:56 IMPRESSION: Right ischial decubitus ulcer with a right ischial rectal fossa/medial buttock residual abscess or phlegmon. Striated enhancement of the right kidney and mild urothelial enhancement concerning for pyelonephritis and urinary tract infection. Multiple large right renal calculi with mild hydronephrosis, ureteral stent in place, and 5 mm distal ureteral calculus. 1.3 cm complex right medial cystic lesion, possible renal abscess. Multiple left renal calculi with a large UVJ calculus. Mild left hydronephrosis with ureteral stent in place. Bladder and ureteral calculi. Cystitis. Migration of intrauterine device into the cervix. Uterine leiomyomata. Electronically Signed: Grace Marcus MD at 13:26 EDT , Assessment & Plan Assessment/Plan (1) Decubitus ulcer, infected: (2) UTI (urinary tract infection): (3) EDWINA (acute kidney injury): (4) Pyelonephritis: (5) Type II diabetes mellitus: (6) Kidney stones: (7) IUD migration: (8) Hydronephrosis: (9) Kidney lesion: PLAN: Plan #Right ischial decubitus ulcer -with a right ischial rectal fossa/medial buttock residual abscess or phlegmon 3.9 x [address], draining in ED spontaneously, may need further drainage if residual collection is abscess for source control -Morales cultured -Broad spectrum IV abx -Surgury consult, wound care consult -ID c/s specially given hx of MDRO #Urinary tract infection with concerns for right-sided pyelonephritis -CT with striated enhancement of right kidney concerning for pyelonephritis and urothelial enhancement concerning for UTI, UA consistent with this -Broad-spectrum antibiotics, panculture -Given concerns for right pyelo with a 5 mm distal ureteral calculus on the right with mild hydronephrosis unclear if patient will need intervention, urology consulted -We will continue IVF #1.3cm complex right medial cystic lesion -Cannot rule out renal abscess, this is also on the side with a possible pyelonephritis -Given size will treat initially with broad-spectrum antibiotics and if no change or improvement may need drained -Continue IVF and broad-spectrum antibiotics, cultures pending, ID consulted #Multiple renal calculi with mild bilateral hydronephrosis -Has bilateral ureteral stents in place, there is a 5 mm distal ureteral calculus on the right side with mild hydronephrosis and multiple left renal calculi with large UVJ calculus and mild left hydronephrosis with ureteral stent in place -We will consult urology as above #EDWINA on CKD stage IIIb -We will give fluids, treat underlying cause -Holding Lasix #Type 2 diabetes mellitus -Glucose checks and sliding scale insulin, patient also on long-acting #IUD migration #History of MS, chronic catheter -Supportive care #Morbid obesity -BMI 40.5 kg/m? -Complicates treatment, prognosis, outcomes -Recommend weight loss and lifestyle changes #Hypothyroidism -Continue Synthroid #DVT ppx: Lovenox subcu Nicolasa Stokes MD Time spent in the patient's overall evaluation,decision-making process, review of diagnostic data, adjustment of management, discussion with other providers, nursing nursing and ancillary staff involved in patient's care documentation, 71 minutes Charges/Coding Visit Charges Inpatient E&M: 11125 Init Hosp L3
--- NOTE | 2022-08-08 16:29 | PCM.RX.CS ---
Consult Pharmacy has been consulted to manage selected antiobiotic: Vancomycin Type of Consult: New start Suspected Infection: Skin/Soft tissue, Other Labs: Sodium 135 mmol/L (136-145) L 08/08/22 11:00 Potassium 3.4 mmol/L (3.5-5.1) L 08/08/22 11:00 Chloride 99 mmol/L (98-107) 08/08/22 11:00 Carbon Dioxide 28.0 mmol/L (21.0-32.0) 08/08/22 11:00 Anion Gap 8 (5-15) 08/08/22 11:00 BUN 24 mg/dL (7-18) H 08/08/22 11:00 Creatinine 1.40 mg/dL (0.55-1.02) H 08/08/22 11:00 Est GFR (MDRD) Af Amer 49 mL/min (>60) L 08/08/22 11:00 Est GFR (MDRD) Non-Af 41 mL/min (>60) L 08/08/22 11:00 BUN/Creatinine Ratio 17.1 RATIO (10-20) 08/08/22 11:00 Glucose 155 mg/dL (74-106) H 08/08/22 11:00 Goal Trough: 15-20 mcg/mL Pharmacy Plan for Drug Dosing: NEW START IV VANCOMYCIN Consulting Physician: Dr. Stokes Indication: SSTI/ UTI Goal Trough: 15-20 SrCr: 1.4 CrCl: 59 mL/min Comments: Patient had initial dose of vancomycin 1250mg IV x1 in ED 08/08/22 @1128 Vancomycin Dose: 750mg IV Q12hr to start 08/08/22 @2300 Pending Level: 08/09/22 @2230, prior to 4th total vancomycin dose per protocol Pharmacy Service will continue to monitor and adjust dosing as required.
[2022-08-08 17:31] LABS: Bedside Glucose 116 mg/dL (74-106)
--- NOTE | 2022-08-08 18:47 | CON.PCM.SX_ITS ---
Assessment & Plan Assessment/Plan (1) Decubitus ulcer, infected: PLAN: Patient seems to have an infected decubitus ulcer of the right buttock. It is draining purulent material. When I examined it it appears that the opening is fairly wide and it is being packed currently. It appears that there is a large cavity on the CT scan. Currently it appears to be adequately draining and it is being packed. She is being started on IV antibiotics. I will continue to monitor through the weekend but I am adding her on Wednesday for debridement of this ulcer in the operating room. If things markedly improved before then I will delay it or cancel it but it likely needs unroofed and widely debrided with packing. Patient is in agreement I discussed this with her. I will allow her to have regular diet and continue antibiotics for the weekend and I will make her n.p.o. at midnight on Wednesday morning. Rock Ngo MD Pager: [facility] [address] [place] [address], [address] [place] [address] Office: HPI Consult Data Date of Consult: 08/08/22 HPI Narrative HPI Narrative: MARIA D SMITH, is a 62 F who presents with decubitus ulcer with drainage. Patient reports has been draining. She denies fevers or chills. She has had a longstanding decubitus ulcer and she has tried antibiotics in the past for this. She also has recurrent UTIs. [facility] Medical History Anxiety Bedbound Bilateral knee pain delivery delivered Depression Family history of MS (multiple sclerosis) Fatigue History of multiple sclerosis Kidney stones Lymphedema MDRO (multiple drug resistant organisms) resistance Morbid obesity Multiple sclerosis Muscle spasm Polyneuropathy Type II diabetes mellitus Vitamin A deficiency Home Medications glimepiride 4 mg tablet 4 mg PO BID DM 12/21/19 [History Last Taken 12/02/21] levothyroxine 50 mcg tablet (Synthroid) 50 mcg PO DAILY thyroid 12/21/19 [History Last Taken 12/02/21] duloxetine 60 mg capsule,delayed release 60 mg PO BID #180 caps 06/30/21 [Rx Last Taken 12/02/21] atorvastatin 80 mg tablet 80 mg PO DAILY cholesterol 12/03/21 [History Last Taken 12/02/21] esomeprazole magnesium 40 mg capsule,delayed release 40 mg PO DAILY stomach 12/03/21 [History Last Taken 12/02/21] furosemide 40 mg tablet 80 mg PO BREAKFAST fluid 12/03/21 [History Last Taken 12/02/21] insulin degludec 200 unit/mL (3 mL) subcutaneous pen (Tresiba FlexTouch U-200 insulin) 50 unit subcut QHS dm 12/03/21 [History Last Taken 12/02/21] metformin 1,000 mg tablet 1,000 mg PO BID DM 12/03/21 [History Last Taken 12/02/21] oxycodone-acetaminophen 5 mg-325 mg tablet 1 tab PO TID PRN MS 12/03/21 [History Last Taken 12/03/21] pregabalin 75 mg capsule 75 mg PO BID pain 12/03/21 [History Last Taken 12/02/21] semaglutide 1 mg/dose (4 mg/3 mL) subcutaneous pen injector (Ozempic) 1 mg subcut QWEEK dm 12/03/21 [History Last Taken 11/29/21] buspirone 5 mg tablet 5 mg PO BID #60 tabs 02/04/22 [Rx Last Taken Unknown] cholecalciferol (vitamin D3) 25 mcg (1,000 unit) tablet (Vitamin D3) 25 mcg PO BID 02/04/22 [History Last Taken Unknown] ondansetron 4 mg disintegrating tablet 4 mg PO Q4H PRN PRN Nausea #10 tabs 06/09/22 [Rx Last Taken Unknown] baclofen 10 mg tablet 10 mg PO Q6H PRN PRN Muscle Spasm 06/12/22 [History Last Taken Unknown] Allergy/AdvReac Type Severity Reaction Status Date / Time ampicillin [From Unasyn] Allergy Severe Rash Verified 02/04/22 12:02 sulbactam [From Unasyn] Allergy Severe Rash Verified 02/04/22 12:02 ciprofloxacin [From Cipro] Allergy Hives Verified 02/04/22 12:02 ciprofloxacin HCl Allergy Hives Verified 02/04/22 12:02 [From Cipro] clindamycin HCl Allergy Hives Verified 02/04/22 12:02 [From Cleocin] clindamycin palmitate HCl Allergy Hives Verified 02/04/22 12:02 [From Cleocin] clindamycin phosphate Allergy Hives Verified 02/04/22 12:02 [From Cleocin] morphine Allergy Hives Verified 02/04/22 12:02 sulfamethoxazole Allergy Hives Verified 02/04/22 12:02 [From Bactrim] trimethoprim [From Bactrim] Allergy Hives Verified 02/04/22 12:02 hydromorphone HCl AdvReac messes Verified 02/04/22 12:02 [From Dilaudid] with my brain Family History Unknown Multiple sclerosis 1st cousin Father Cancer lens examiner, black lung, Lung CA. Mother Heart disease Diabetes Heart failure Surgical History H/O hernia repair History of cholecystectomy Social History household members: spouse Smoking Status: Never smoker alcohol intake: never substance use type: does not use ROS ROS Narrative General: Denies fever/chills HENT: Denies headache, denies stuffy nose, denies sore throat EYES: Denies changes in vision Resp: Denies cough, denies shortness of breath Cardiac: Denies chest pain GI: Denies abdominal pain : Chronic Valenzuela cath Extremity: Left leg in brace due left knee fracture found MSK: Chronically wheelchair-bound Neuro: Altered sensation in lower extremities Heme: Denies any bleeding or bruising Skin: Has decubitus ulcer Psychiatric: No complaints voiced Physical Exam Const alert and oriented x3 Eyes PERRL Resp normal respiratory effort Cardio Rate: regular rate Rhythm: regular rhythm GI soft to palpation and non-tender Lab / Micro Data Result Diagrams: 08/08/22 10:10 08/08/22 11:00 Labs: Laboratory Results - last 24 hr 08/08/22 10:10: WBC 8.7, RBC 4.18 L, Hgb 12.3, Hct 39.6, MCV 94.7, MCH 29.4, MCHC 31.1 L, RDW Std Deviation 55.8 H, RDW Coeff of Mele 16.0 H, Plt Count 413, MPV 9.5, Immature Gran % (Auto) 0.900, Neut % (Auto) 73.9 H, Lymph % (Auto) 11.7 L, [place] % (Auto) 8.7, Eos % (Auto) 4.0, Baso % (Auto) 0.8, Absolute Neuts (auto) 6.4, Absolute Lymphs (auto) 1.02, Nucleated RBC % 0 08/08/22 10:10: Sodium Cancelled, Potassium Cancelled, Chloride Cancelled, Carbon Dioxide Cancelled, Anion Gap Cancelled, BUN Cancelled, Creatinine Cancelled, Estim Creat Clear Calc Cancelled, Est GFR (MDRD) Af Amer Cancelled, Est GFR (MDRD) Non-Af Cancelled, BUN/Creatinine Ratio Cancelled, Glucose Cancelled, Calcium Cancelled 08/08/22 10:10: Lactic Acid 0.9 08/08/22 10:47: Urine Color Yellow, Urine Clarity Sl. Cloudy, Urine pH 6.5, Ur Specific [place] 1.015, Urine Protein 500 H, Urine Glucose (UA) Normal, Urine Ketones Negative, Urine Occult Blood 250 H, Urine Nitrite Positive H, Urine Bilirubin Negative, Urine Urobilinogen Normal, Ur Leukocyte Esterase 500 H, Urine RBC 50-100 SEEN, Urine WBC >100 SEEN, Ur Squamous Epith Cells 0 SEEN, Urine Bacteria 2+, Urine Mucus 0 SEEN 08/08/22 11:00: Sodium 135 L, Potassium 3.4 L, Chloride 99, Carbon Dioxide 28.0, Anion Gap 8, BUN 24 H, Creatinine 1.40 H, Estim Creat Clear Calc 59.37, Est GFR (MDRD) Af Amer 49 L, Est GFR (MDRD) Non-Af 41 L, BUN/Creatinine Ratio 17.1, Glucose 155 H, Calcium 9.1 08/08/22 17:04: POC Glucose 116 H Radiology Impression Pelvis CT 08/08/22 09:56 IMPRESSION: Right ischial decubitus ulcer with a right ischial rectal fossa/medial buttock residual abscess or phlegmon. Striated enhancement of the right kidney and mild urothelial enhancement concerning for pyelonephritis and urinary tract infection. Multiple large right renal calculi with mild hydronephrosis, ureteral stent in place, and 5 mm distal ureteral calculus. 1.3 cm complex right medial cystic lesion, possible renal abscess. Multiple left renal calculi with a large UVJ calculus. Mild left hydronephrosis with ureteral stent in place. Bladder and ureteral calculi. Cystitis. Migration of intrauterine device into the cervix. Uterine leiomyomata. Electronically Signed: Grace Marcus MD at 13:26 EDT ,
[2022-08-08] MEDS: Potassium Chloride Oral Tablet 20 MEQ PO (19:52)
[2022-08-08] MEDS: Pregabalin 75 MG Capsule PO (21:45)
[2022-08-08] MEDS: Atorvastatin Calcium 80 MG Tablet PO (22:03)
[2022-08-08] MEDS: DULoxetine Hcl 60 MG Capsule PO (22:03)
[2022-08-08] MEDS: busPIRone 5 MG Tablet PO (22:03)
[2022-08-08] MEDS: Insulin Glargine-YFGN 100 UNIT/ML Pen 25 UNIT SC (22:04)
[2022-08-08] MEDS: Nystatin Powder 15gm Bottle 1 APPLIC TOPICAL (22:05)
[2022-08-08] MEDS: Enoxaparin 40 MG/0.4 ML Syringe SC (22:05)
[2022-08-08 23:00] LABS: Bedside Glucose 144 mg/dL (74-106)
[2022-08-08] MEDS: Oxycodone/Apap 5/325 Tablet PO (23:11)
[2022-08-09 04:09] VITALS: BP 122/67; PULSE 81; RESP 18; TEMP 37.1; O2SAT 97
[2022-08-09] MEDS: 0.9% Normal Saline 1,000 ML 150 ML IV ×3 (05:39→21:03)
[2022-08-09] MEDS: Levothyroxine 50 MCG Tablet PO (05:41)
[2022-08-09] MEDS: Nystatin Powder 15gm Bottle 1 APPLIC TOPICAL ×3 (05:42→22:15)
[2022-08-09 06:09] LABS: Bedside Glucose 86 mg/dL (74-106)
[2022-08-09 06:27] LABS: Absolute Lymphocyte Count 0.52 X10^3/uL (0.83-4.51); Absolute Neutrophil Count 4.4 X10^3/uL (2.0-7.7); Basophil# 0.04 X10^3/uL; Basophil% 0.7 % (0-1); Eosinophil# 0.38 X10^3/uL; Eosinophils% 6.5 % (0-5); Hematocrit 34.2 % (37-47); Hemoglobin 10.7 g/dL (12.0-15.0); Lymphocyte # 0.52 X10^3/ul (0.83-4.51); Lymphocyte % 8.9 % (19-41); Mean Corp Hgb Conc 31.3 g/dL (32-36); Mean Corpuscular Hgb 29.5 pg (27.0-32.0); Mean Corpuscular Volume 94.2 fL (81-99); Mean Platelet Vol. 9.6 fl (6.2-12.0); Monocyte# 0.42 X10^3/uL; Monocyte% 7.2 % (0-10); NRBC Flagged by Analyzer 0 % (0-5); Neutrophil # 4.36 X10^3/uL (2.7-7.7); Neutrophil % 74.8 % (47-70); POSITIVE DIFFERENTIAL YES; Platelet Count 343 K/mm3 (150-450); RBC Distribution Width CV 15.6 % (11.6-14.6); Red Blood Count 3.63 M/mm3 (4.2-5.4); White Blood Count 5.8 K/mm3 (4.4-11.0)
[2022-08-09 06:43] LABS: Differential Indicated SCAN CRITERIA MET
[2022-08-09 06:48] LABS: Anisocytosis 1+
[2022-08-09 06:58] LABS: ALB/GLOB Ratio 0.6 RATIO (0.9-2.4); AST(SGOT) 9 U/L (15-37); Alanine Aminotransfer ALT/SGPT < 6 U/L (13-56); Albumin, Serum 2.3 g/dL (3.2-5.0); Alkaline Phosphatase 86 U/L (45-117); Anion Gap 6 (5-15); BUN 20 mg/dL (7-18); Calcium,Total 8.4 mg/dL (8.5-10.1); Chloride 103 mmol/L (98-107); Creatinine, Serum 1.11 mg/dL (0.55-1.02); EST Glomerular Filtration Rate 53 mL/min (>60); Est Glom Filt Rate - Afr Amer 64 mL/min (>60); Estimated Creatinine Clearance 72.41 ml/min; Globulin 3.9 g/dL (2.2-4.2); Glucose 103 mg/dL (74-106); Magnesium 1.6 mg/dL (1.6-2.6); Potassium 3.4 mmol/L (3.5-5.1); Protein, Total 6.2 g/dL (6.4-8.2); Sodium Level 134 mmol/L (136-145)
--- NOTE | 2022-08-09 07:03 | PCM.PN.SRG ---
Subjective Subjective No new issues overnight Objective Data Objective Data Vital Signs: Vital Signs Temp Pulse Resp BP Pulse Ox O2 Del Method 98.8 F 81 18 122/67 H 97 Room Air 08/09/22 04:09 08/09/22 04:09 08/09/22 04:09 08/09/22 04:09 08/09/22 04:08/09/22 04:09 Oxygen Delivery Method Room Air Weight: 187 lb 9.814 oz Body Mass Index (BMI) 39.2 Intake & Output: Intake and Output for Last 24 Hours 08/07/22 08/08/22 08/09/22 23:59 23:59 23:59 Intake Total 1557.5 / 1557.5 1112.5 / 1112.5 Output Total 400 / 1050 1050 / 1050 Balance 1157.5 / 507.5 62.5 / 62.5 Lab / Micro Data Result Diagrams: 08/09/22 06:12 08/09/22 06:12 Labs: Laboratory Results - last 24 hr 08/08/22 10:10: WBC 8.7, RBC 4.18 L, Hgb 12.3, Hct 39.6, MCV 94.7, MCH 29.4, MCHC 31.1 L, RDW Std Deviation 55.8 H, RDW Coeff of Mele 16.0 H, Plt Count 413, MPV 9.5, Immature Gran % (Auto) 0.900, Neut % (Auto) 73.9 H, Lymph % (Auto) 11.7 L, [place] % (Auto) 8.7, Eos % (Auto) 4.0, Baso % (Auto) 0.8, Absolute Neuts (auto) 6.4, Absolute Lymphs (auto) 1.02, Nucleated RBC % 0 08/08/22 10:10: Sodium Cancelled, Potassium Cancelled, Chloride Cancelled, Carbon Dioxide Cancelled, Anion Gap Cancelled, BUN Cancelled, Creatinine Cancelled, Estim Creat Clear Calc Cancelled, Est GFR (MDRD) Af Amer Cancelled, Est GFR (MDRD) Non-Af Cancelled, BUN/Creatinine Ratio Cancelled, Glucose Cancelled, Calcium Cancelled 08/08/22 10:10: Lactic Acid 0.9 08/08/22 10:47: Urine Color Yellow, Urine Clarity Sl. Cloudy, Urine pH 6.5, Ur Specific [place] 1.015, Urine Protein 500 H, Urine Glucose (UA) Normal, Urine Ketones Negative, Urine Occult Blood 250 H, Urine Nitrite Positive H, Urine Bilirubin Negative, Urine Urobilinogen Normal, Ur Leukocyte Esterase 500 H, Urine RBC 50-100 SEEN, Urine WBC >100 SEEN, Ur Squamous Epith Cells 0 SEEN, Urine Bacteria 2+, Urine Mucus 0 SEEN 08/08/22 11:00: Sodium 135 L, Potassium 3.4 L, Chloride 99, Carbon Dioxide 28.0, Anion Gap 8, BUN 24 H, Creatinine 1.40 H, Estim Creat Clear Calc 59.37, Est GFR (MDRD) Af Amer 49 L, Est GFR (MDRD) Non-Af 41 L, BUN/Creatinine Ratio 17.1, Glucose 155 H, Calcium 9.1 08/08/22 17:04: POC Glucose 116 H 08/08/22 21:35: POC Glucose 144 H 08/09/22 05:47: POC Glucose 86 08/09/22 06:12: WBC 5.8, RBC 3.63 L, Hgb 10.7 L, Hct 34.2 L, MCV 94.2, MCH 29.5, MCHC 31.3 L, RDW Std Deviation 54.0 H, RDW Coeff of Mele 15.6 H, Plt Count 343, MPV 9.6, Immature Gran % (Auto) 1.900 H, Neut % (Auto) 74.8 H, Lymph % (Auto) 8.9 L, [place] % (Auto) 7.2, Eos % (Auto) 6.5 H, Baso % (Auto) 0.7, Absolute Neuts (auto) 4.4, Absolute Lymphs (auto) 0.52 L, Nucleated RBC % 0, Anisocytosis 1+ 08/09/22 06:12: Sodium 134 L, Potassium 3.4 L, Chloride 103, Carbon Dioxide 25.0, Anion Gap 6, BUN 20 H, Creatinine 1.11 H, Estim Creat Clear Calc 72.41, Est GFR (MDRD) Af Amer 64, Est GFR (MDRD) Non-Af 53 L, BUN/Creatinine Ratio 18.0, Glucose 103, Calcium 8.4 L, Magnesium 1.6, Total Bilirubin 0.40, AST 9 L, ALT < 6 L, Alkaline Phosphatase 86, Total Protein 6.2 L, Albumin 2.3 L, Globulin 3.9, Albumin/Globulin Ratio 0.6 L Radiography Diagnostic Testing: Radiology Impression Pelvis CT 08/08/22 09:56 IMPRESSION: Right ischial decubitus ulcer with a right ischial rectal fossa/medial buttock residual abscess or phlegmon. Striated enhancement of the right kidney and mild urothelial enhancement concerning for pyelonephritis and urinary tract infection. Multiple large right renal calculi with mild hydronephrosis, ureteral stent in place, and 5 mm distal ureteral calculus. 1.3 cm complex right medial cystic lesion, possible renal abscess. Multiple left renal calculi with a large UVJ calculus. Mild left hydronephrosis with ureteral stent in place. Bladder and ureteral calculi. Cystitis. Migration of intrauterine device into the cervix. Uterine leiomyomata. Electronically Signed: Grace Marcus MD at 13:26 EDT Reading Location ID and State: [facility] / [place] Tel , Service support , Physical Exam Const oriented x3 and no apparent distress Resp normal respiratory effort GI soft to palpation and non-tender Assessment & Plan Assessment/Plan (1) Decubitus ulcer, infected: PLAN: Patient has a right buttock decubitus ulcer which is draining purulent material. The opening seems adequate for drainage and she is having packing changed to twice daily. I will take her for a more formal debridement tomorrow in the operating room to clean this area out and unroof it. N.p.o. after midnight. Continue antibiotics. Rock Ngo MD Pager: [facility] [address] [place] [address], [address] [place] [address] Office:
--- NOTE | 2022-08-09 08:16 | PCM.PN.HOSP ---
Reason for Visit Reason for Visit: Diagnoses Type 2 diabetes mellitus without complications (08/08/22) Local infection of the skin and subcutaneous tissue, unspecified (08/08/22) Pressure ulcer of unspecified site, unspecified stage (08/08/22) Tubulo-interstitial nephritis, not specified as acute or chronic (08/08/22) Unspecified hydronephrosis (08/08/22) Acute kidney failure, unspecified (08/08/22) Calculus of kidney (08/08/22) Disorder of kidney and ureter, unspecified (08/08/22) Urinary tract infection, site not specified (08/08/22) Displacement of intrauterine contraceptive device, initial encounter (08/08/22) Subjective Subjective Feeling similar today with no acute complaints Objective Data Objective Data Vital Signs: Vital Signs Temp Pulse Resp BP Pulse Ox O2 Del Method 98.8 F 81 18 122/67 H 97 Room Air 08/09/22 04:09 08/09/22 04:09 08/09/22 04:09 08/09/22 04:09 08/09/22 04:09 08/09/22 04:09 Oxygen Delivery Method Room Air Weight: 85.1 kg Body Mass Index (BMI) 39.2 Intake & Output: Intake and Output for Last 24 Hours 08/07/22 08/08/22 08/09/22 23:59 23:59 23:59 Intake Total 1557.5 / 1557.5 1112.5 / 1112.5 Output Total 400 / 1050 1050 / 1050 Balance 1157.5 / 507.5 62.5 / 62.5 Lab / Micro Data Result Diagrams: 08/09/22 06:12 08/09/22 06:12 Labs: Laboratory Results - last 24 hr 08/08/22 10:10: WBC 8.7, RBC 4.18 L, Hgb 12.3, Hct 39.6, MCV 94.7, MCH 29.4, MCHC 31.1 L, RDW Std Deviation 55.8 H, RDW Coeff of Mele 16.0 H, Plt Count 413, MPV 9.5, Immature Gran % (Auto) 0.900, Neut % (Auto) 73.9 H, Lymph % (Auto) 11.7 L, [place] % (Auto) 8.7, Eos % (Auto) 4.0, Baso % (Auto) 0.8, Absolute Neuts (auto) 6.4, Absolute Lymphs (auto) 1.02, Nucleated RBC % 0 08/08/22 10:10: Sodium Cancelled, Potassium Cancelled, Chloride Cancelled, Carbon Dioxide Cancelled, Anion Gap Cancelled, BUN Cancelled, Creatinine Cancelled, Estim Creat Clear Calc Cancelled, Est GFR (MDRD) Af Amer Cancelled, Est GFR (MDRD) Non-Af Cancelled, BUN/Creatinine Ratio Cancelled, Glucose Cancelled, Calcium Cancelled 08/08/22 10:10: Lactic Acid 0.9 08/08/22 10:47: Urine Color Yellow, Urine Clarity Sl. Cloudy, Urine pH 6.5, Ur Specific [place] 1.015, Urine Protein 500 H, Urine Glucose (UA) Normal, Urine Ketones Negative, Urine Occult Blood 250 H, Urine Nitrite Positive H, Urine Bilirubin Negative, Urine Urobilinogen Normal, Ur Leukocyte Esterase 500 H, Urine RBC 50-100 SEEN, Urine WBC >100 SEEN, Ur Squamous Epith Cells 0 SEEN, Urine Bacteria 2+, Urine Mucus 0 SEEN 08/08/22 11:00: Sodium 135 L, Potassium 3.4 L, Chloride 99, Carbon Dioxide 28.0, Anion Gap 8, BUN 24 H, Creatinine 1.40 H, Estim Creat Clear Calc 59.37, Est GFR (MDRD) Af Amer 49 L, Est GFR (MDRD) Non-Af 41 L, BUN/Creatinine Ratio 17.1, Glucose 155 H, Calcium 9.1 08/08/22 17:04: POC Glucose 116 H 08/08/22 21:35: POC Glucose 144 H 08/09/22 05:47: POC Glucose 86 08/09/22 06:12: WBC 5.8, RBC 3.63 L, Hgb 10.7 L, Hct 34.2 L, MCV 94.2, MCH 29.5, MCHC 31.3 L, RDW Std Deviation 54.0 H, RDW Coeff of Mele 15.6 H, Plt Count 343, MPV 9.6, Immature Gran % (Auto) 1.900 H, Neut % (Auto) 74.8 H, Lymph % (Auto) 8.9 L, [place] % (Auto) 7.2, Eos % (Auto) 6.5 H, Baso % (Auto) 0.7, Absolute Neuts (auto) 4.4, Absolute Lymphs (auto) 0.52 L, Nucleated RBC % 0, Anisocytosis 1+ 08/09/22 06:12: Sodium 134 L, Potassium 3.4 L, Chloride 103, Carbon Dioxide 25.0, Anion Gap 6, BUN 20 H, Creatinine 1.11 H, Estim Creat Clear Calc 72.41, Est GFR (MDRD) Af Amer 64, Est GFR (MDRD) Non-Af 53 L, BUN/Creatinine Ratio 18.0, Glucose 103, Calcium 8.4 L, Magnesium 1.6, Total Bilirubin 0.40, AST 9 L, ALT < 6 L, Alkaline Phosphatase 86, Total Protein 6.2 L, Albumin 2.3 L, Globulin 3.9, Albumin/Globulin Ratio 0.6 L Radiography Diagnostic Testing: Radiology Impression Pelvis CT 08/08/22 09:56 IMPRESSION: Right ischial decubitus ulcer with a right ischial rectal fossa/medial buttock residual abscess or phlegmon. Striated enhancement of the right kidney and mild urothelial enhancement concerning for pyelonephritis and urinary tract infection. Multiple large right renal calculi with mild hydronephrosis, ureteral stent in place, and 5 mm distal ureteral calculus. 1.3 cm complex right medial cystic lesion, possible renal abscess. Multiple left renal calculi with a large UVJ calculus. Mild left hydronephrosis with ureteral stent in place. Bladder and ureteral calculi. Cystitis. Migration of intrauterine device into the cervix. Uterine leiomyomata. Electronically Signed: Grace Marcus MD at 13:26 EDT , Physical Exam Narrative General: Alert, oriented, no apparent distress HEENT: Atraumatic Eyes: Anicteric, normal conjunctiva, extraocular movements grossly intact Neck: Supple Respiratory: Clear to auscultation bilaterally, normal respiratory effort Cardiovascular: Regular rate and rhythm GI: Soft, nontender, nondistended Extremities: Has some erythema on right medial calf without drainage Musculoskeletal: Does not move lower extremities, moves upper extremities without difficulty Neuro: Has chronic deficits from MS, not using lower extremities Skin: Patient has right buttock ulcer for over tomorrow Psych: Cooperative Assessment & Plan Assessment/Plan (1) Decubitus ulcer, infected: (2) UTI (urinary tract infection): (3) EDWINA (acute kidney injury): (4) Pyelonephritis: (5) Type II diabetes mellitus: (6) Kidney stones: (7) IUD migration: (8) Hydronephrosis: (9) Kidney lesion: PLAN: Plan #Right ischial decubitus ulcer -with a right ischial rectal fossa/medial buttock residual abscess or phlegmon 3.9 x [address], draining in ED spontaneously, may need further drainage if residual collection is abscess for source control -Morales cultured -Broad spectrum IV abx -Surgury consult, wound care consult -ID c/s specially given hx of MDRO -08/09: Surgery evaluated, packing changed twice daily, debridement 08/[address] Ngo. Continue antibiotics, follow cultures, prelim growing gram-negative alfie lactose communications maintainer as well as another gram-negative alfie, n.p.o. after midnight #Urinary tract infection with concerns for right-sided pyelonephritis -CT with striated enhancement of right kidney concerning for pyelonephritis and urothelial enhancement concerning for UTI, UA consistent with this -Broad-spectrum antibiotics, panculture -Given concerns for right pyelo with a 5 mm distal ureteral calculus on the right with mild hydronephrosis unclear if patient will need intervention, urology consulted -We will continue IVF -08/09: Cultures pending, continue broad-spectrum antibiotics, ID consult pending?will likely be seen early in the week but presently no sensitivities available #1.3cm complex right medial cystic lesion -Cannot rule out renal abscess, this is also on the side with a possible pyelonephritis -Given size will treat initially with broad-spectrum antibiotics and if no change or improvement may need drained -Continue IVF and broad-spectrum antibiotics, cultures pending, ID consulted -08/09: May need to consider repeat imaging of abscess in 1 to 2 days to verify improvement versus worsening/need for drainage. Cultures pending, continue broad-spectrum antibiotics, ID consult pending?will likely be seen early in the week but presently no sensitivities available. #Multiple renal calculi with mild bilateral hydronephrosis -Has bilateral ureteral stents in place, there is a 5 mm distal ureteral calculus on the right side with mild hydronephrosis and multiple left renal calculi with large UVJ calculus and mild left hydronephrosis with ureteral stent in place -We will consult urology as above -08/09: Creatinine improving today with conservative measures #EDWINA on CKD stage IIIb -We will give fluids, treat underlying cause -Holding Lasix -08/09: Creatinine improving today with conservative measures #Type 2 diabetes mellitus -Glucose checks and sliding scale insulin, patient also on long-acting #IUD migration -Discussed with gynecology, IUD migration to cervix noted on CT. Not as effective in this location for prevention but should still have effect for menstrual cycles. Patient can be seen in the office upon discharge with either Dr. Wright or her own dish washer if applicable for this to be removed or replaced #History of MS, chronic catheter -Supportive care -Patient reports she has a lot of help at home as well as multiple adaptive/assistive devices and wants to go home upon discharge #Morbid obesity -BMI 40.5 kg/m? -Complicates treatment, prognosis, outcomes -Recommend weight loss and lifestyle changes #Hypothyroidism -Continue Synthroid #DVT ppx: Lovenox subcu Nicolasa Stokes MD Time spent in the patient's overall evaluation,decision-making process, review of diagnostic data, adjustment of management, discussion with other providers, nursing nursing and ancillary staff involved in patient's care documentation, 36minutes Charges/Coding Visit Charges Inpatient E&M: [id number] [facility] L3
[2022-08-09 08:46] VITALS: BP 98/57; PULSE 76; RESP 18; TEMP 36.9; O2SAT 98
[2022-08-09] MEDS: Potassium Chloride Oral Tablet 20 MEQ 40 MEQ PO (08:49)
[2022-08-09] MEDS: DULoxetine Hcl 60 MG Capsule PO ×2 (10:19→22:14)
[2022-08-09] MEDS: Pantoprazole Sodium 40 MG Tablet PO (10:19)
[2022-08-09] MEDS: Enoxaparin 40 MG/0.4 ML Syringe SC ×2 (10:19→22:15)
[2022-08-09] MEDS: busPIRone 5 MG Tablet PO ×2 (10:20→22:14)
[2022-08-09] MEDS: Pregabalin 75 MG Capsule PO ×2 (10:24→22:11)
--- NOTE | 2022-08-09 11:49 | PCM.CONS.GEN ---
Assessment & Plan Assessment/Plan (1) Pyelonephritis: (2) Kidney stones: (3) EDWINA (acute kidney injury): (4) UTI (urinary tract infection): (5) Neurogenic bladder: (6) Acute on chronic urinary retention: PLAN: Plan There has been improvement in her creatinine with fluids and supportive management Her Valenzuela catheter is now draining clear yellow and likely the bladder would be empty on repeat imaging with resolution of any minimal amount of fluid seen in her renal pelvises Continue care per [facility] urology team No plans for surgical intervention from a urologic standpoint during this admission I will be available for any issues or concerns while she is here HPI Consult Data Date of Consult: 08/09/22 HPI Narrative Reason for Consultation: Pyelonephritis, urinary retention, bilateral stones HPI Narrative: MARIA D SMITH, is a 62 F with multiple sclerosis, neurogenic bladder and chronic urinary retention. She has a complex urologic history with bilateral nephrolithiasis and recent ureteral stents inserted approximately 1 month ago at the [facility]. She has had a urethral Valenzuela catheter for at least 2 years and has been scheduled multiple times by another surgeon for suprapubic tube insertion and every time she gets to the surgical date, she gets admitted to the hospital for illness and the procedure is postponed. She is currently admitted for issues with wound infection. She had a CT scan of her pelvis performed and it revealed ureteral stents in good location, still with urine in the bladder despite a Valenzuela catheter. Her Valenzuela catheter was changed after this and is now draining clear yellow urine. She denies any flank pain. She is not having any abdominal pain. There is no nausea or vomiting and she essentially has no urologic related complaints. She has an upcoming appointment with her urologist at the [facility] early in August for further management of her stones and urinary retention, recurrent urinary tract infections. [facility] Medical History (Updated 08/09/22 @ 11:[address] Aimee Batista MD) Acute on chronic urinary retention Anxiety Bedbound Bilateral knee pain delivery delivered Depression Family history of MS (multiple sclerosis) Fatigue History of multiple sclerosis Kidney stones Lymphedema MDRO (multiple drug resistant organisms) resistance Morbid obesity Multiple sclerosis Muscle spasm Neurogenic bladder Polyneuropathy Type II diabetes mellitus Vitamin A deficiency Home Medications glimepiride 4 mg tablet 4 mg PO BID DM 12/21/19 [History Last Taken 12/02/21] levothyroxine 50 mcg tablet (Synthroid) 50 mcg PO DAILY thyroid 12/21/19 [History Last Taken 12/02/21] duloxetine 60 mg capsule,delayed release 60 mg PO BID #180 caps 06/30/21 [Rx Last Taken 12/02/21] atorvastatin 80 mg tablet 80 mg PO DAILY cholesterol 12/03/21 [History Last Taken 12/02/21] esomeprazole magnesium 40 mg capsule,delayed release 40 mg PO DAILY stomach 12/03/21 [History Last Taken 12/02/21] furosemide 40 mg tablet 80 mg PO BREAKFAST fluid 12/03/21 [History Last Taken 12/02/21] insulin degludec 200 unit/mL (3 mL) subcutaneous pen (Tresiba FlexTouch U-200 insulin) 50 unit subcut QHS dm 12/03/21 [History Last Taken 12/02/21] metformin 1,000 mg tablet 1,000 mg PO BID DM 12/03/21 [History Last Taken 12/02/21] oxycodone-acetaminophen 5 mg-325 mg tablet 1 tab PO TID PRN MS 12/03/21 [History Last Taken 12/03/21] pregabalin 75 mg capsule 75 mg PO BID pain 12/03/21 [History Last Taken 12/02/21] semaglutide 1 mg/dose (4 mg/3 mL) subcutaneous pen injector (Ozempic) 1 mg subcut QWEEK dm 12/03/21 [History Last Taken 11/29/21] buspirone 5 mg tablet 5 mg PO BID #60 tabs 02/04/22 [Rx Last Taken Unknown] cholecalciferol (vitamin D3) 25 mcg (1,000 unit) tablet (Vitamin D3) 25 mcg PO BID 02/04/22 [History Last Taken Unknown] ondansetron 4 mg disintegrating tablet 4 mg PO Q4H PRN PRN Nausea #10 tabs 06/09/22 [Rx Last Taken Unknown] baclofen 10 mg tablet 10 mg PO Q6H PRN PRN Muscle Spasm 06/12/22 [History Last Taken Unknown] Allergy/AdvReac Type Severity Reaction Status Date / Time ampicillin [From Unasyn] Allergy Severe Rash Verified 02/04/22 12:02 sulbactam [From Unasyn] Allergy Severe Rash Verified 02/04/22 12:02 ciprofloxacin [From Cipro] Allergy Hives Verified 02/04/22 12:02 ciprofloxacin HCl Allergy Hives Verified 02/04/22 12:02 [From Cipro] clindamycin HCl Allergy Hives Verified 02/04/22 12:02 [From Cleocin] clindamycin palmitate HCl Allergy Hives Verified 02/04/22 12:02 [From Cleocin] clindamycin phosphate Allergy Hives Verified 02/04/22 12:02 [From Cleocin] morphine Allergy Hives Verified 02/04/22 12:02 sulfamethoxazole Allergy Hives Verified 02/04/22 12:02 [From Bactrim] trimethoprim [From Bactrim] Allergy Hives Verified 02/04/22 12:02 hydromorphone HCl AdvReac messes Verified 02/04/22 12:02 [From Dilaudid] with my brain Family History Unknown Multiple sclerosis 1st cousin Father Cancer plan examiner, black lung, Lung CA. Mother Heart disease Diabetes Heart failure Surgical History H/O hernia repair History of cholecystectomy Social History household members: spouse Smoking Status: Never smoker alcohol intake: never substance use type: does not use ROS Constitutional Constitutional: Reports systems reviewed and no addt'l complaints, except as documented Eyes Eyes: Reports systems reviewed and no addt'l complaints, except as documented ENT HEENT: Reports systems reviewed and no addt'l complaints, except as documented Cardiovascular Cardiovascular: Reports systems reviewed and no addt'l complaints, except as documented Respiratory/Chest Respiratory/Chest: Reports systems reviewed and no addt'l complaints, except as documented Gastrointestinal Gastrointestinal: Reports systems reviewed and no addt'l complaints, except as documented Genitourinary Genitourinary: Reports systems reviewed and no addt'l complaints, except as documented Musculoskeletal Musculoskeletal: Reports other Details: None ambulatory, legs with contractures and in an extended position secondary to chronic immobility Integumentary Integumentary: Reports wounds and other Details: Decubitus ulcers with purulent drainage being handled by surgery team Neurologic Neurologic: Reports other Details: As mentioned above, multiple sclerosis and many neurologic issues secondary to this diagnosis Psychiatric Psychiatric: Reports systems reviewed and no addt'l complaints, except as documented Endocrine Endocrinology: Reports systems reviewed and no addt'l complaints, except as documented Hematologic/Lymphatic Hematologic/Lymphatic: Reports systems reviewed and no addt'l complaints, except as documented Allergic/Immunologic Allergic/Immunologic: Reports systems reviewed and no addt'l complaints, except as documented Physical Exam Const alert, oriented x3 and no apparent distress General Appearance: cooperative and comfortable Orientation / Consciousness: awake HEENT normocephalic and head/scalp atraumatic Eyes General Eye: normal appearance of both eyes Neck supple General: normal visual inspection Chest inspection of chest normal Resp normal respiratory effort, normal air movement and no retractions Cardio regular rate GI soft to palpation, non-tender and non-distended Narrative: Urethral Valenzuela draining clear yellow urine Bladder / Kidney Exam: catheter in place Neuro oriented x3 and CN's II-XII intact bilaterally Psych mental status grossly normal Lab / Micro Data Result Diagrams: 08/09/22 06:12 08/09/22 06:12 Labs: Laboratory Results - last 24 hr 08/08/22 17:04: POC Glucose 116 H 08/08/22 21:35: POC Glucose 144 H 08/09/22 05:47: POC Glucose 86 08/09/22 06:12: WBC 5.8, RBC 3.63 L, Hgb 10.7 L, Hct 34.2 L, MCV 94.2, MCH 29.5, MCHC 31.3 L, RDW Std Deviation 54.0 H, RDW Coeff of Mele 15.6 H, Plt Count 343, MPV 9.6, Immature Gran % (Auto) 1.900 H, Neut % (Auto) 74.8 H, Lymph % (Auto) 8.9 L, [place] % (Auto) 7.2, Eos % (Auto) 6.5 H, Baso % (Auto) 0.7, Absolute Neuts (auto) 4.4, Absolute Lymphs (auto) 0.52 L, Nucleated RBC % 0, Anisocytosis 1+ 08/09/22 06:12: Sodium 134 L, Potassium 3.4 L, Chloride 103, Carbon Dioxide 25.0, Anion Gap 6, BUN 20 H, Creatinine 1.11 H, Estim Creat Clear Calc 72.41, Est GFR (MDRD) Af Amer 64, Est GFR (MDRD) Non-Af 53 L, BUN/Creatinine Ratio 18.0, Glucose 103, Calcium 8.4 L, Magnesium 1.6, Total Bilirubin 0.40, AST 9 L, ALT < 6 L, Alkaline Phosphatase 86, Total Protein 6.2 L, Albumin 2.3 L, Globulin 3.9, Albumin/Globulin Ratio 0.6 L Micro: Microbiology 08/08/22 10:04 Wound Drainage - Buttock Wound Culture - Preliminary Gram negative alfie GNR lactose double end 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 Striated enhancement of the right kidney and mild urothelial enhancement concerning for pyelonephritis and urinary tract infection. Multiple large right renal calculi with mild hydronephrosis, ureteral stent in place, and 5 mm distal ureteral calculus. 1.3 cm complex right medial cystic lesion, possible renal abscess. Multiple left renal calculi with a large UVJ calculus. Mild left hydronephrosis with ureteral stent in place. Bladder and ureteral calculi. Cystitis. Migration of intrauterine device into the cervix. Uterine leiomyomata. Electronically Signed: Grace Marcus MD at 13:26 EDT ,
[2022-08-09 12:24] LABS: Bedside Glucose 156 mg/dL (74-106)
[2022-08-09] MEDS: Insulin Lispro 100 UNIT/ML INSULN.PEN SC ×3 (12:56→22:14)
[2022-08-09 14:11] VITALS: BP 104/55; PULSE 78; RESP 16; TEMP 37.1; O2SAT 97
[2022-08-09 16:23] LABS: Bedside Glucose 161 mg/dL (74-106)
[2022-08-09 22:00] VITALS: BP 105/59; PULSE 77; RESP 18; TEMP 37; O2SAT 96
[2022-08-09] MEDS: Insulin Glargine-YFGN 100 UNIT/ML Pen 20 UNIT SC (22:13)
[2022-08-09] MEDS: Atorvastatin Calcium 80 MG Tablet PO (22:13)
[2022-08-09 22:39] LABS: Bedside Glucose 167 mg/dL (74-106)
[2022-08-10] VITALS (12 sets, daily range): BP systolic 88–116; BP diastolic 44–73; PULSE 60–80; RESP 16–18; TEMP 36.4–36.9; O2SAT 96–100; BMI 39.2
--- NOTE | 2022-08-10 00:43 | PCM.RX.CS ---
Consult Pharmacy has been consulted to manage selected antiobiotic: Vancomycin Type of Consult: Follow-up Prior Doses of Antibiotics Received/Current Regimen: Medications Vancomycin HCl 750 mg/ Sodium (Chloride) 265 mls @ 250 mls/hr IV Q12H NOEL Stop: 08/10/22 01:30 Last Admin: 08/09/22 23:58 Dose: 250 mls/hr Labs: Sodium 134 mmol/L (136-145) L 08/09/22 06:12 Potassium 3.4 mmol/L (3.5-5.1) L 08/09/22 06:12 Chloride 103 mmol/L (98-107) 08/09/22 06:12 Carbon Dioxide 25.0 mmol/L (21.0-32.0) 08/09/22 06:12 Anion Gap 6 (5-15) 08/09/22 06:12 BUN 20 mg/dL (7-18) H 08/09/22 06:12 Creatinine 1.11 mg/dL (0.55-1.02) H 08/09/22 06:12 Est GFR (MDRD) Af Amer 64 mL/min (>60) 08/09/22 06:12 Est GFR (MDRD) Non-Af 53 mL/min (>60) L 08/09/22 06:12 BUN/Creatinine Ratio 18.0 RATIO (10-20) 08/09/22 06:12 Glucose 103 mg/dL (74-106) 08/09/22 06:12 Vancomycin Trough 24.0 ug/mL (5.0-15.0) H 08/09/22 22:25 Microbiology: Microbiology 08/08/22 10:04 Wound Drainage - Buttock Gram Stain - Final 08/08/22 10:04 Wound Drainage - Buttock Wound Culture - Preliminary Gram negative alfie GNR 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 The higher than target (15-20) level was surprising due to the increase in renal function (CrCl from 59 to 72ml/min). Will hold the current dosing. Will draw another trough 12 hours after the most recent dose and adjust further dosing from that result. Pharmacy Service will continue to monitor and adjust dosing as required. Follow-Up Labs: Trough Vancomycin Labs to be done on [date and time ordered]: 08/10/22 @1200
[2022-08-10 01:11] LABS: Mucous, Urine 0 SEEN /hpf (<or=2+); Squamous Epithelial Cells - UA 0 SEEN /hpf (5-10)
[2022-08-10 01:22] LABS: Color, Urine Yellow (Yellow); Glucose, Dipstick Normal (Normal); Ketone-Dipstick Negative (Negative); Leukocyte Esterase-Dipstick 500 /ul (Negative); Nitrite-Dipstick Negative (Negative); Occult Blood-Urine 150 /ul (Negative); Protein-Dipstick 30 mg/dl (Negative); Specific Gravity, Urine 1.015 (1.002-1.030); Urine Bilirubin Dipstick Negative (Negative); Urine Clarity Cloudy (Clear); Urine Urobilinogen Normal (Normal)
[2022-08-10 01:58] LABS: White Blood Cells >100 SEEN /hpf (0-5)
[2022-08-10 01:59] LABS: Red Blood Cells-Urine 10-25 SEEN /hpf (0-5)
[2022-08-10 02:01] LABS: Renal Epithelial Cells 0-5 SEEN /hpf (0-5)
[2022-08-10 02:02] LABS: Bacteria 3+ /hpf (None Seen)
--- NOTE | 2022-08-10 05:00 | EKG12_ITS ---
Test Reason : PRE OP Blood Pressure : / mmHG Vent. Rate : 065 BPM Atrial Rate : 065 BPM P-R Int : 162 ms QRS Dur : 088 ms QT Int : 446 ms P-R-T Axes : 061 009 033 degrees QTc Int : 463 ms Normal sinus rhythm Septal infarct , age undetermined Abnormal ECG When compared with ECG of 12-JUN-2022 10:59, Vent. rate has decreased BY 53 BPM T wave inversion no longer evident in Anterolateral leads Confirmed by NEREIDA MARTINES, LLUVIA ([id number]), state editor ALMAZ YE ([id number]) on 08/12/2022 2:00:01 PM Referred By: CAMERON Confirmed By:LLUVIA PADRON MD
[2022-08-10] MEDS: Levothyroxine 50 MCG Tablet PO (05:45)
[2022-08-10] MEDS: Nystatin Powder 15gm Bottle 1 APPLIC TOPICAL ×3 (05:45→21:39)
[2022-08-10] MEDS: 0.9% Normal Saline 1,000 ML 150 ML IV ×3 (05:48→19:44)
[2022-08-10 06:02] LABS: Absolute Lymphocyte Count 0.83 X10^3/uL (0.83-4.51); Absolute Neutrophil Count 3.6 X10^3/uL (2.0-7.7); Basophil# 0.03 X10^3/uL; Basophil% 0.5 % (0-1); Eosinophil# 0.45 X10^3/uL; Eosinophils% 8.2 % (0-5); Hematocrit 30.6 % (37-47); Hemoglobin 9.9 g/dL (12.0-15.0); Lymphocyte # 0.83 X10^3/ul (0.83-4.51); Lymphocyte % 15.2 % (19-41); Mean Corp Hgb Conc 32.4 g/dL (32-36); Mean Corpuscular Hgb 30.4 pg (27.0-32.0); Mean Corpuscular Volume 93.9 fL (81-99); Mean Platelet Vol. 9.7 fl (6.2-12.0); Monocyte# 0.51 X10^3/uL; Monocyte% 9.3 % (0-10); NRBC Flagged by Analyzer 0 % (0-5); Neutrophil # 3.55 X10^3/uL (2.7-7.7); Neutrophil % 65.2 % (47-70); Platelet Count 325 K/mm3 (150-450); RBC Distribution Width CV 15.4 % (11.6-14.6); RBC Distribution Width SD 53.2 fl (35.1-43.9); Red Blood Count 3.26 M/mm3 (4.2-5.4); White Blood Count 5.5 K/mm3 (4.4-11.0)
[2022-08-10 06:25] LABS: Prothrombin Time (Protime)PT. 13.1 SECONDS (11.7-14.9)
[2022-08-10 06:26] LABS: Partial Thromboplast Time 41.7 Seconds (24.1-36.2)
[2022-08-10 06:45] LABS: ALB/GLOB Ratio 0.5 RATIO (0.9-2.4); AST(SGOT) 7 U/L (15-37); Alanine Aminotransfer ALT/SGPT < 6 U/L (13-56); Alkaline Phosphatase 89 U/L (45-117); Anion Gap 6 (5-15); BUN 18 mg/dL (7-18); BUN/Creat Ratio 16.1 RATIO (10-20); Calcium,Total 8.5 mg/dL (8.5-10.1); Chloride 105 mmol/L (98-107); Creatinine, Serum 1.12 mg/dL (0.55-1.02); EST Glomerular Filtration Rate 53 mL/min (>60); Est Glom Filt Rate - Afr Amer 64 mL/min (>60); Estimated Creatinine Clearance 71.76 ml/min; Globulin 4.2 g/dL (2.2-4.2); Glucose 108 mg/dL (74-106); Potassium 3.8 mmol/L (3.5-5.1); Protein, Total 6.2 g/dL (6.4-8.2); Sodium Level 137 mmol/L (136-145); Thyroid Stim Hormone (TSH) 2.77 uIU/mL (0.358-3.74)
[2022-08-10 07:04] LABS: Bedside Glucose 123 mg/dL (74-106)
--- NOTE | 2022-08-10 07:30 | PN.SURG_ITS ---
Subjective Subjective Patient reports no complaints Objective Data Objective Data Vital Signs: Vital Signs Temp Pulse Resp BP Pulse Ox O2 Del Method 98.0 F 66 16 110/64 100 Room Air 08/10/22 05:30 08/10/22 05:30 08/10/22 05:30 08/10/22 05:30 08/10/22 05:30 08/10/22 05:30 Oxygen Delivery Method Room Air Weight: 187 lb 9.814 oz Body Mass Index (BMI) 39.2 Intake & Output: Intake and Output for Last 24 Hours 08/08/22 08/09/22 08/10/22 23:59 23:59 23:59 Intake Total 1557.5 / 1557.5 4677.5 / 4677.5 1315 / 1315 Output Total 400 / 1050 1900 / 2700 1775 / 1775 Balance 1157.5 / 507.5 2777.5 / 1977.5 -460 / -460 Lab / Micro Data Result Diagrams: 08/10/22 05:25 08/10/22 05:25 Labs: Laboratory Results - last 24 hr 08/09/22 11:53: POC Glucose 156 H 08/09/22 16:04: POC Glucose 161 H 08/09/22 22:11: POC Glucose 167 H 08/09/22 22:25: Vancomycin Trough 24.0 H 08/10/22 00:39: Urine Color Yellow, Urine Clarity Cloudy, Urine pH 6.0, Ur Specific [place] 1.015, Urine Protein 30 H, Urine Glucose (UA) Normal, Urine Ketones Negative, Urine Occult Blood 150 H, Urine Nitrite Negative, Urine Bilirubin Negative, Urine Urobilinogen Normal, Ur Leukocyte Esterase 500 H, Urine RBC 10-25 SEEN, Urine WBC >100 SEEN, Ur Squamous Epith Cells 0 SEEN, Ur Renal Epithelial Cell 0-5 SEEN, Urine Bacteria 3+, Urine Mucus 0 SEEN 08/10/22 05:25: WBC 5.5, RBC 3.26 L, Hgb 9.9 L, Hct 30.6 L, MCV 93.9, MCH 30.4, MCHC 32.4, RDW Std Deviation 53.2 H, RDW Coeff of Mele 15.4 H, Plt Count 325, MPV 9.7, Immature Gran % (Auto) 1.600 H, Neut % (Auto) 65.2, Lymph % (Auto) 15.2 L, [place] % (Auto) 9.3, Eos % (Auto) 8.2 H, Baso % (Auto) 0.5, Absolute Neuts (auto) 3.6, Absolute Lymphs (auto) 0.83, Nucleated RBC % 0 08/10/22 05:25: Sodium 137, Potassium 3.8, Chloride 105, Carbon Dioxide 26.0, An ion Gap 6, BUN 18, Creatinine 1.12 H, Estim Creat Clear Calc 71.76, Est GFR ( MDRD) Af Amer 64, Est GFR (MDRD) Non-Af 53 L, BUN/Creatinine Ratio 16.1, Glucose 108 H, Calcium 8.5, Total Bilirubin 0.30, AST 7 L, ALT < 6 L, Alkaline Phosphatase 89, Total Protein 6.2 L, Albumin 2.0 L, Globulin 4.2, Albumin/Globulin Ratio 0.5 L, TSH 2.77 08/10/22 05:25: PT 13.1, INR 1.0, APTT 41.7 H 08/10/22 06:46: POC Glucose 123 H Micro: Microbiology 08/08/22 10:04 Wound Drainage - Buttock Gram Stain - Final 08/08/22 10:04 Wound Drainage - Buttock Wound Culture - Preliminary Gram negative alfie GNR lactose registered nurse Assessment & Plan Assessment/Plan (1) Decubitus ulcer, infected: PLAN: Ending on taken the this afternoon for further debridement of this decubitus ulcer and washed the area out with packing. I discussed this with her and discussed the risk of bleeding and infection. Patient understands and is willing to proceed. Rock Ngo MD Pager: [facility] [address] [place] [address], [address] [place] [phone] Office:
--- NOTE | 2022-08-10 08:12 | PCM.PN.HOSP ---
Reason for Visit Reason for Visit: Diagnoses Type 2 diabetes mellitus without complications (08/08/22) Local infection of the skin and subcutaneous tissue, unspecified (08/08/22) Pressure ulcer of unspecified site, unspecified stage (08/08/22) Tubulo-interstitial nephritis, not specified as acute or chronic (08/08/22) Unspecified hydronephrosis (08/08/22) Acute kidney failure, unspecified (08/08/22) Calculus of kidney (08/08/22) Disorder of kidney and ureter, unspecified (08/08/22) Neuromuscular dysfunction of bladder, unspecified (08/08/22) Urinary tract infection, site not specified (08/08/22) Retention of urine, unspecified (08/08/22) Displacement of intrauterine contraceptive device, initial encounter (08/08/22) Subjective Subjective Patient is a 62-year-old lady with history of multiple sclerosis admitted with right ischial decubitus ulcer Objective Data Objective Data Vital Signs: Vital Signs Temp Pulse Resp BP Pulse Ox O2 Del Method 98.0 F 66 16 110/64 100 Room Air 08/10/22 05:30 08/10/22 05:30 08/10/22 05:30 08/10/22 05:30 08/10/22 05:30 08/10/22 05:30 Oxygen Delivery Method Room Air Weight: 85.1 kg Body Mass Index (BMI) 39.2 Intake & Output: Intake and Output for Last 24 Hours 08/08/22 08/09/22 08/10/22 23:59 23:59 23:59 Intake Total 1557.5 / 1557.5 4677.5 / 4677.5 1315 / 1315 Output Total 400 / 1050 1900 / 2700 1775 / 1775 Balance 1157.5 / 507.5 2777.5 / 1977.5 -460 / -460 Lab / Micro Data Result Diagrams: 08/10/22 05:25 08/10/22 05:25 Labs: Laboratory Results - last 24 hr 08/09/22 11:53: POC Glucose 156 H 08/09/22 16:04: POC Glucose 161 H 08/09/22 22:11: POC Glucose 167 H 08/09/22 22:25: Vancomycin Trough 24.0 H 08/10/22 00:39: Urine Color Yellow, Urine Clarity Cloudy, Urine pH 6.0, Ur Specific [place] 1.015, Urine Protein 30 H, Urine Glucose (UA) Normal, Urine Ketones Negative, Urine Occult Blood 150 H, Urine Nitrite Negative, Urine Bilirubin Negative, Urine Urobilinogen Normal, Ur Leukocyte Esterase 500 H, Urine RBC 10-25 SEEN, Urine WBC >100 SEEN, Ur Squamous Epith Cells 0 SEEN, Ur Renal Epithelial Cell 0-5 SEEN, Urine Bacteria 3+, Urine Mucus 0 SEEN 08/10/22 05:25: WBC 5.5, RBC 3.26 L, Hgb 9.9 L, Hct 30.6 L, MCV 93.9, MCH 30.4, MCHC 32.4, RDW Std Deviation 53.2 H, RDW Coeff of Mele 15.4 H, Plt Count 325, MPV 9.7, Immature Gran % (Auto) 1.600 H, Neut % (Auto) 65.2, Lymph % (Auto) 15.2 L, [place] % (Auto) 9.3, Eos % (Auto) 8.2 H, Baso % (Auto) 0.5, Absolute Neuts (auto) 3.6, Absolute Lymphs (auto) 0.83, Nucleated RBC % 0 08/10/22 05:25: Sodium 137, Potassium 3.8, Chloride 105, Carbon Dioxide 26.0, Anion Gap 6, BUN 18, Creatinine 1.12 H, Estim Creat Clear Calc 71.76, Est GFR (MDRD) Af Amer 64, Est GFR (MDRD) Non-Af 53 L, BUN/Creatinine Ratio 16.1, Glucose 108 H, Calcium 8.5, Total Bilirubin 0.30, AST 7 L, ALT < 6 L, Alkaline Phosphatase 89, Total Protein 6.2 L, Albumin 2.0 L, Globulin 4.2, Albumin/Globulin Ratio 0.5 L, TSH 2.77 08/10/22 05:25: PT 13.1, INR 1.0, APTT 41.7 H 08/10/22 06:46: POC Glucose 123 H Micro: Microbiology 08/08/22 10:04 Wound Drainage - Buttock Gram Stain - Final 08/08/22 10:04 Wound Drainage - Buttock Wound Culture - Preliminary Gram negative alfie 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 Regular S1 S2, GI:? soft, normoactive bowel sounds, : No Renal angle tenderness; EXTREMITIES: Bipedal edema, bilateral stasis dermatitis MUSCULOSKELETAL:? no muscle wasting Skin: Patient has right buttock ulcer for over tomorrow Psych: Cooperative Assessment & Plan Assessment/Plan (1) Decubitus ulcer, infected: (2) UTI (urinary tract infection): (3) EDWINA (acute kidney injury): (4) Pyelonephritis: (5) Type II diabetes mellitus: (6) Kidney stones: (7) IUD migration: (8) Hydronephrosis: (9) Kidney lesion: PLAN: Plan Patient is a 62-year-old lady with history of multiple sclerosis admitted with right ischial decubitus ulcer 1. Right distal ischial decubitus ulcer -with a right ischial rectal fossa/medial buttock residual abscess or phlegmon 3.9 x [address], patient started on broad-spectrum antibiotic therapy with consultation placed infectious disease General surgery consulted patient seen by Dr. Ngo plan is for patient to undergo wound debridement on 08/10/2022 2. Urinary tract infection with concerns for right-sided pyelonephritis -CT with striated enhancement of right kidney concerning for pyelonephritis and urothelial enhancement concerning for UTI, UA consistent with this. Started on broad-spectrum antibiotic therapy cultures sent results pending next 3 1.3cm complex right medial cystic lesion -Renal abscess could not be ruled out as well as possible pyelonephritis as stated above patient is on broad-spectrum antibiotic therapy 4. Multiple renal calculi with mild bilateral hydronephrosis -Has bilateral ureteral stents in place, there is a 5 mm distal ureteral calculus on the right side with mild hydronephrosis and multiple left renal calculi with large UVJ calculus and mild left hydronephrosis with ureteral stent in place. Consult placed to urology 5. EDWINA on CKD stage IIIb -Patient is on Furosemide held management IV fluid with monitoring of electrolytes ordered patient improving with conservative management -08/09: Creatinine improving today with conservative measures 6.? Multiple sclerosis with chronic bilateral lower extremity weakness.? Patient is bedbound.? Due to consult was placed PT and OT and social science analyst to assist with discharge planning 7.? Diabetes mellitus type II complications including peripheral neuropathy -patient's oral hypoglycemics held. Placed on long acting insulin, Accu-Cheks a.c. and at bedtime and covered with sliding scale insulin 8.? Dyslipidemia -Patient is on statin therapy, continued at home dose 9.? Hypothyroidism - Patient is on levothyroxine home dose continued 10.? Depression with anxiety ? Patient is on duloxetine did continue 8.? Class II obesity with BMI of 39 ? Patient with multiple sclerosis complicates effort regarding weight loss 12. IUD migration -Discussed with gynecology, IUD migration to cervix noted on CT. Not as effective in this location for prevention but should still have effect for menstrual cycles. Patient can be seen in the office upon discharge with either Dr. Wright or her own in flight crew member if applicable for this to be removed or replaced 13 .? DVT prophylaxis ? SC Lovenox Time spent in the patient's overall evaluation,decision-making process, review of diagnostic data, adjustment of management, discussion with other providers, nursing nursing and ancillary staff involved in patient's care documentation, 36minutes Charges/Coding Visit Charges Inpatient E&M: 79577 Subs Hosp L2
--- NOTE | 2022-08-10 08:20 | WOUNDNOTE ---
wound photo: right ischium
--- NOTE | 2022-08-10 08:21 | WOUNDNOTE ---
wound photo: left dorsal foot
[2022-08-10 08:30] LABS: Hemoglobin A1c 5.4 % (3.8-5.6)
[2022-08-10 11:05] LABS: Bedside Glucose 101 mg/dL (74-106)
--- NOTE | 2022-08-10 11:20 | CASEMGMT ---
Addendum entered and electronically signed by Natividad Viveros RN 08/10/22 14:52: Call received from Jolene Clinical Manager Transport at [facility]. Per Jolene, [facility] has been providing and reinforcing education re: DM management with noted concerns for pt's blood glucose fluctuating low and high with pt noted to be left alone as witnessed by an nurse during a visit. Education on pt's bed mobility provided to pt's family. Noted limited family support despite pt's projection that her spouse and daughters assist with care. One daughter is her hired YARDAGE CALLER. Coreen Viveros RN CM Original Note: TRUNG NICHOLSON Discharge Planning Assessment: Face to Face with patient for initial transition planning/care coordination assessment.?TRUNG NICHOLSON introduced self and role at [facility], pt alert, oriented x4, voices understanding and is agreeable to participating in assessment. Care providers, pharmacy,?and demographics verified. ? Admitting Dx: UTI, EDWINA, Ischial wound w/abscess PCP: Sheri King Specialists: Brenda (neurologist), urologist ([facility]), surgical corsetier in [place] Preferred Pharmacy: [facility] Insurance: [employer] Prescription Benefit:?yes Living Will/HPOA: no Living Will but pt is interested in completing, SW notified. HPOA son Steven Alcocer LNOK: spouse Jm Living Arrangements: Pt lives in a single story home with an elevator at the entrance. Pt states she is nonambulatory at baseline and is primarily bedbound at this time due to decubitus ulcers. Pt's daughter assists with bed bathes and her spouse assists with household tasks. Pt's spouse and daughter currently assist with dressing changes although at discharge her spouse will be the primary one available to perform. Transportation: Pt's [facility] BH[facility] Adame assists with arranging cot transport d/t decubitus ulcers. States she has used w/c transport in the past. DME: Sylwia lift, hospital bed (was to have new bed and mattress delivered today arranged by ANNA Adame CM), power w/c with leg supports, medical alert, glucometer and supplies HHC: Pt is active with [facility] for SN services. Pt also receives [employer]ARDAGE CALLER services 3hrs/day Wednesday thru Wednesday from [facility]. SNF: Pt has been at [facility] in the past ? Pt's Goal: Pt states she plans to return at discharge to her home with the resumption of YARDAGE CALLER, skilled SN HH from [facility] and the support and assistance from her spouse. Pt states her spouse is currently and will be able to assist with dressing changes and has assisted with home IV antibiotics via a PICC line previously. Pt states she does not want to go to a SNF at discharge as she has the support of her family and the DME. Call placed to ANNA Adame to confirm new hospital bed/mattress and provider of this DME as pt was unable to recall. Will continue to monitor and assist with determined needs postoperatively. Coreen Viveros RN CM
--- NOTE | 2022-08-10 13:34 | PCM.PN.ID ---
ID ID: Route of nutrition/ use of supplements: [] Nutritional Intake: [] IV Site: [] Valenzuela Catheter: [] Assessment & Plan Assessment/Plan (1) Decubitus ulcer, infected: PLAN: Pt taken to OR. Agree with empiric abx, will do full consult in AM.
[2022-08-10] MEDS: Bupivacaine Mpf 0.5% 30 ML VIAL (13:45)
--- NOTE | 2022-08-10 14:16 | PHA.PHARE_ITS ---
Consult Pharmacy has been consulted to manage selected antiobiotic: Vancomycin Type of Consult: Follow-up Prior Doses of Antibiotics Received/Current Regimen: 1250 MG 08/08/22 @ 1125 750mg 08/09/22 @ 1154,9369 Labs: Sodium 137 mmol/L (136-145) 08/10/22 05:25 Potassium 3.8 mmol/L (3.5-5.1) 08/10/22 05:25 Chloride 105 mmol/L (98-107) 08/10/22 05:25 Carbon Dioxide 26.0 mmol/L (21.0-32.0) 08/10/22 05:25 Anion Gap 6 (5-15) 08/10/22 05:25 BUN 18 mg/dL (7-18) 08/10/22 05:25 Creatinine 1.12 mg/dL (0.55-1.02) H 08/10/22 05:25 Est GFR (MDRD) Af Amer 64 mL/min (>60) 08/10/22 05:25 Est GFR (MDRD) Non-Af 53 mL/min (>60) L 08/10/22 05:25 BUN/Creatinine Ratio 16.1 RATIO (10-20) 08/10/22 05:25 Glucose 108 mg/dL (74-106) H 08/10/22 05:25 Vancomycin Trough 26.0 ug/mL (5.0-15.0) H 08/10/22 12:07 Microbiology: Microbiology 08/08/22 10:47 Urine, Clean Catch Urine Culture - Final Mixed Culture 08/08/22 10:04 Wound Drainage - Buttock Gram Stain - Final 08/08/22 10:04 Wound Drainage - Buttock Wound Culture - Preliminary Proteus mirabilis GNR lactose clothing supervisor 08/08/22 10:04 Wound Drainage - Buttock Anaerobic Culture - Preliminary Checking for anaerobes, further studies to follow. Weight used for dosin kg Goal Trough: 15-20 mcg/mL Pharmacy Plan for Drug Dosing: hold dose and draw random vancomycin level 08/11/22 Pharmacy Service will continue to monitor and adjust dosing as required. Labs to be done on [date and time ordered]: random lvel: 08/11/22 @ 0600
--- NOTE | 2022-08-10 14:22 | PCM.OPRPT ---
Report of Operation Date of Procedure: 08/10/22 Pre-Operative Diagnosis: Right ischial fossa decubitus ulcer with infection Post-Operative Diagnosis: Same Surgery/Procedure Performed:: Debridement of right ischial fossa decubitus ulcer with packing Description of Procedure: Patient was brought back to the operating room and turned in the left decubitus position. MAC anesthesia was induced. The right buttock was prepped and draped in usual sterile fashion. Local anesthetic was instilled all around the incision. An elliptical incision was made around the opening. The subcutaneous tissue was irrigated and cauterized using letter cautery. The necrotic tissue all throughout the ulcer was debrided using electrocautery and sharp debridement. It did reach bone but the bone felt firm and not necrotic. The cavity was irrigated and suctioned dry. The cavity was then packed with Betadine soaked gauze and a dressing was applied. The defect was approximately 5 cm deep. The skin incision after surgery was 4 x 4 cm.
[2022-08-10] MEDS: metroNIDAZOLE 500 MG Tablet PO ×2 (15:20→21:37)
[2022-08-10 15:35] LABS: Bedside Glucose 104 mg/dL (74-106)
--- NOTE | 2022-08-10 15:57 | CASEMGMT ---
Social Work SW received referral from RNCM for home concerns. Chart review completed from previous admissions. APS referral made on 06/20/22. Phone call to Kesha at [facility]. Kesha did meet with pt at home with [facility] BHARAT Browne present. Per Kesha, a case was not opened as all needs were addressed, pt is A&O x3 and prefers to stay in the home. left for JANELL Bose [facility]. left for Wendi Browne, [facility] ([phone]). MARY ANN Pena
[2022-08-10] MEDS: 0.9% Saline Lock 10 ML Syringe IV (19:44)
[2022-08-10] MEDS: MELATONIN 3 MG TABLET PO (21:37)
[2022-08-10] MEDS: Pregabalin 75 MG Capsule PO (21:37)
[2022-08-10] MEDS: DULoxetine Hcl 60 MG Capsule PO (21:37)
[2022-08-10] MEDS: Enoxaparin 40 MG/0.4 ML Syringe SC (21:37)
[2022-08-10] MEDS: Atorvastatin Calcium 80 MG Tablet PO (21:38)
[2022-08-10] MEDS: busPIRone 5 MG Tablet PO (21:38)
[2022-08-10] MEDS: Oxycodone/Apap 5/325 Tablet PO (21:46)
[2022-08-10] MEDS: Insulin Glargine-YFGN 100 UNIT/ML Pen 20 UNIT SC (21:50)
[2022-08-10 22:24] LABS: Bedside Glucose 132 mg/dL (74-106)
[2022-08-11] MEDS: 0.9% Normal Saline 1,000 ML 150 ML IV ×2 (02:17→09:20)
[2022-08-11 06:00] VITALS: BP 100/54; PULSE 69; RESP 15; TEMP 36.7; O2SAT 98
[2022-08-11 06:28] LABS: Absolute Neutrophil Count 3.7 X10^3/uL (2.0-7.7); Basophil# 0.06 X10^3/uL; Basophil% 1.1 % (0-1); Eosinophil# 0.38 X10^3/uL; Eosinophils% 6.9 % (0-5); Hematocrit 28.9 % (37-47); Lymphocyte % 12.7 % (19-41); Mean Corp Hgb Conc 31.1 g/dL (32-36); Mean Corpuscular Hgb 29.3 pg (27.0-32.0); Mean Corpuscular Volume 94.1 fL (81-99); Mean Platelet Vol. 9.4 fl (6.2-12.0); Monocyte# 0.58 X10^3/uL; Monocyte% 10.5 % (0-10); NRBC Flagged by Analyzer 0 % (0-5); Neutrophil # 3.69 X10^3/uL (2.7-7.7); Platelet Count 288 K/mm3 (150-450); RBC Distribution Width CV 15.4 % (11.6-14.6); RBC Distribution Width SD 53.4 fl (35.1-43.9); Red Blood Count 3.07 M/mm3 (4.2-5.4); White Blood Count 5.5 K/mm3 (4.4-11.0)
[2022-08-11] MEDS: metroNIDAZOLE 500 MG Tablet PO ×3 (06:57→22:28)
--- NOTE | 2022-08-11 06:57 | PN.SURG_ITS ---
Subjective Subjective No new issues overnight Objective Data Objective Data Vital Signs: Vital Signs Temp Pulse Resp BP Pulse Ox O2 Del Method 97.9 F 72 16 98/57 L 98 Room Air 08/10/22 19:30 08/10/22 19:30 08/10/22 19:30 08/10/22 19:30 08/10/22 19:30 08/10/22 19:30 Oxygen Delivery Method Room Air Weight: 187 lb 9.814 oz Body Mass Index (BMI) 39.2 Intake & Output: Intake and Output for Last 24 Hours 08/09/22 08/10/22 08/11/22 23:59 23:59 23:59 Intake Total 4677.5 / 4677.5 4522.5 / 4522.5 Output Total 1900 / 2700 3525 / 3525 Balance 2777.5 / 1977.5 997.5 / 997.5 Lab / Micro Data Result Diagrams: 08/11/22 06:10 08/10/22 05:25 Labs: Laboratory Results - last 24 hr 08/10/22 05:25: Hemoglobin A1c 5.4 08/10/22 06:46: POC Glucose 123 H 08/10/22 10:42: POC Glucose 101 08/10/22 12:07: Vancomycin Trough 26.0 H 08/10/22 15:17: POC Glucose 104 08/10/22 21:49: POC Glucose 132 H 08/11/22 06:10: WBC 5.5, RBC 3.07 L, Hgb 9.0 L, Hct 28.9 L, MCV 94.1, MCH 29.3, MCHC 31.1 L, RDW Std Deviation 53.4 H, RDW Coeff of Mele 15.4 H, Plt Count 288, MPV 9.4, Immature Gran % (Auto) 1.800 H, Neut % (Auto) 67.0, Lymph % (Auto) 12.7 L, [place] % (Auto) 10.5 H, Eos % (Auto) 6.9 H, Baso % (Auto) 1.1 H, Absolute Neuts (auto) 3.7, Absolute Lymphs (auto) 0.70 L, Nucleated RBC % 0 Micro: Microbiology 08/08/22 10:10 Blood Culture (Wb) - Left Wrist Blood Culture - Preliminary No growth in 48 hours. 08/08/22 10:15 Blood Culture (Wb) - Right Forearm Blood Culture - Preliminar y No growth in 48 hours. 08/08/22 10:47 Urine, Clean Catch Urine Culture - Final Mixed Culture 08/08/22 10:04 Wound Drainage - Buttock Gram Stain - Final 08/08/22 10:04 Wound Drainage - Buttock Wound Culture - Preliminary Proteus mirabilis GNR lactose profile stitching machine operator 08/08/22 10:04 Wound Drainage - Buttock Anaerobic Culture - Preliminary Checking for anaerobes, further studies to follow. Assessment & Plan Assessment/Plan (1) Decubitus ulcer, infected: PLAN: Patient had debridement yesterday of ischial fossa ulcer with infection. It is packed. I have talked to her wound nurse who is going to change the packing today and document. I will sign off at this time as it has been fully debrided. I have asked the wound nurse to call me if there is any further need for further debridement or if there are any issues. Please reconsult if anything changes or if I am needed. Rock Ngo MD Pager: [facility] [address] [place] [address], [address] [place] [address] Office:
[2022-08-11] MEDS: Nystatin Powder 15gm Bottle 1 APPLIC TOPICAL ×3 (06:58→22:29)
[2022-08-11] MEDS: Levothyroxine 50 MCG Tablet PO (06:58)
[2022-08-11 07:03] LABS: Vancomycin, Random Level 20.9 ug/mL (0.0-15.0)
[2022-08-11 07:17] LABS: ALB/GLOB Ratio 0.5 RATIO (0.9-2.4); AST(SGOT) 10 U/L (15-37); Alanine Aminotransfer ALT/SGPT < 6 U/L (13-56); Albumin, Serum 1.8 g/dL (3.2-5.0); Alkaline Phosphatase 77 U/L (45-117); Anion Gap 5 (5-15); BUN 15 mg/dL (7-18); BUN/Creat Ratio 14.3 RATIO (10-20); Chloride 110 mmol/L (98-107); Creatinine, Serum 1.05 mg/dL (0.55-1.02); EST Glomerular Filtration Rate 57 mL/min (>60); Est Glom Filt Rate - Afr Amer 69 mL/min (>60); Estimated Creatinine Clearance 76.54 ml/min; Globulin 3.6 g/dL (2.2-4.2); Glucose 103 mg/dL (74-106); Potassium 3.8 mmol/L (3.5-5.1); Protein, Total 5.4 g/dL (6.4-8.2); Sodium Level 138 mmol/L (136-145)
[2022-08-11 07:20] LABS: Bedside Glucose 95 mg/dL (74-106)
--- NOTE | 2022-08-11 07:44 | PCM.PN.HOSP ---
Reason for Visit Reason for Visit: Diagnoses Type 2 diabetes mellitus without complications (08/08/22) Local infection of the skin and subcutaneous tissue, unspecified (08/08/22) Pressure ulcer of unspecified site, unspecified stage (08/08/22) Tubulo-interstitial nephritis, not specified as acute or chronic (08/08/22) Unspecified hydronephrosis (08/08/22) Acute kidney failure, unspecified (08/08/22) Calculus of kidney (08/08/22) Disorder of kidney and ureter, unspecified (08/08/22) Neuromuscular dysfunction of bladder, unspecified (08/08/22) Urinary tract infection, site not specified (08/08/22) Retention of urine, unspecified (08/08/22) Displacement of intrauterine contraceptive device, initial encounter (08/08/22) Subjective Subjective Patient wound cultures so far positive for Proteus mirabilis as well as a gram negative alfie lactose chemical processing equipment repairer with final identification and sensitivity pending Objective Data Objective Data Vital Signs: Vital Signs Temp Pulse Resp BP Pulse Ox O2 Del Method 98.0 F 69 15 100/54 L 98 Room Air 08/11/22 06:00 08/11/22 06:00 08/11/22 06:00 08/11/22 06:00 08/11/22 06:00 08/11/22 06:00 Oxygen Delivery Method Room Air Weight: 85.1 kg Body Mass Index (BMI) 39.2 Intake & Output: Intake and Output for Last 24 Hours 08/09/22 08/10/22 08/11/22 23:59 23:59 23:59 Intake Total 4677.5 / 4677.5 4522.5 / 4522.5 Output Total 1900 / 2700 3525 / 3525 Balance 2777.5 / 1977.5 997.5 / 997.5 Lab / Micro Data Result Diagrams: 08/11/22 06:10 08/11/22 06:10 Labs: Laboratory Results - last 24 hr 08/10/22 05:25: Hemoglobin A1c 5.4 08/10/22 10:42: POC Glucose 101 08/10/22 12:07: Vancomycin Trough 26.0 H 08/10/22 15:17: POC Glucose 104 08/10/22 21:49: POC Glucose 132 H 08/11/22 06:10: WBC 5.5, RBC 3.07 L, Hgb 9.0 L, Hct 28.9 L, MCV 94.1, MCH 29.3, MCHC 31.1 L, RDW Std Deviation 53.4 H, RDW Coeff of Mele 15.4 H, Plt Count 288, MPV 9.4, Immature Gran % (Auto) 1.800 H, Neut % (Auto) 67.0, Lymph % (Auto) 12.7 L, [place] % (Auto) 10.5 H, Eos % (Auto) 6.9 H, Baso % (Auto) 1.1 H, Absolute Neuts (auto) 3.7, Absolute Lymphs (auto) 0.70 L, Nucleated RBC % 0 08/11/22 06:10: Sodium 138, Potassium 3.8, Chloride 110 H, Carbon Dioxide 23.0, Anion Gap 5, BUN 15, Creatinine 1.05 H, Estim Creat Clear Calc 76.54, Est GFR (MDRD) Af Amer 69, Est GFR (MDRD) Non-Af 57 L, BUN/Creatinine Ratio 14.3, Glucose 103, Calcium 8.0 L, Total Bilirubin 0.20, AST 10 L, ALT < 6 L, Alkaline Phosphatase 77, Total Protein 5.4 L, Albumin 1.8 L, Globulin 3.6, Albumin/Globulin Ratio 0.5 L 08/11/22 06:10: Random Vancomycin 20.9 H 08/11/22 06:55: POC Glucose 95 Micro: Microbiology 08/08/22 10:10 Blood Culture (Wb) - Left Wrist Blood Culture - Preliminary No growth in 48 hours. 08/08/22 10:15 Blood Culture (Wb) - Right Forearm Blood Culture - Preliminary No growth in 48 hours. 08/08/22 10:47 Urine, Clean Catch Urine Culture - Final Mixed Culture 08/08/22 10:04 Wound Drainage - Buttock Gram Stain - Final 08/08/22 10:04 Wound Drainage - Buttock Wound Culture - Preliminary Proteus mirabilis GNR lactose chemical processing equipment repairer 08/08/22 10:04 Wound Drainage - Buttock Anaerobic Culture - Preliminary Checking for anaerobes, further studies to follow. Physical Exam Narrative GENERAL: cooperative HEENT: Atraumatic; normocephalic EYES; Anicteric, Normal Conjunctiva NECK; supple, normal thyroid, RESPIRATORY: Diminished to auscultation CARDIOVASCULAR:? Regular S1 S2, GI:? soft, normoactive bowel sounds, : No Renal angle tenderness; EXTREMITIES: Bipedal edema, bilateral stasis dermatitis MUSCULOSKELETAL:? no muscle wasting Skin: Patient has right buttock ulcer for over tomorrow Psych: Cooperative Assessment & Plan Assessment/Plan (1) Decubitus ulcer, infected: (2) UTI (urinary tract infection): (3) EDWINA (acute kidney injury): (4) Pyelonephritis: PLAN: Plan Patient is a 62-year-old lady with history of multiple sclerosis admitted with right ischial decubitus ulcer 1. Right distal ischial decubitus ulcer -with a right ischial rectal fossa/medial buttock residual abscess or phlegmon 3.9 x [address], patient started on broad-spectrum antibiotic therapy with consultation placed infectious disease General surgery consulted patient seen by Dr. Ngo plan is for patient to undergo wound debridement on 08/10/2022 -08/11/2022; patient wound cultures so far positive for Proteus mirabilis as well as a gram negative alfie lactose chemical processing equipment repairer with final identification and sensitivity pending 2. Urinary tract infection UTI associated with/due to the indwelling catheter with concerns for right-sided pyelonephritis -CT with striated enhancement of right kidney concerning for pyelonephritis and urothelial enhancement concerning for UTI, UA consistent with this. Started on broad-spectrum antibiotic therapy cultures sent results pending next 3 1.3cm complex right medial cystic lesion -Renal abscess could not be ruled out as well as possible pyelonephritis as stated above patient is on broad-spectrum antibiotic therapy 4. Multiple renal calculi with mild bilateral hydronephrosis -Has bilateral ureteral stents in place, there is a 5 mm distal ureteral calculus on the right side with mild hydronephrosis and multiple left renal calculi with large UVJ calculus and mild left hydronephrosis with ureteral stent in place. Consult placed to urology 5. EDWINA on CKD stage IIIb -Patient is on Furosemide held management IV fluid with monitoring of electrolytes ordered patient improving with conservative management -08/09: Creatinine improving today with conservative measures 6.? Multiple sclerosis with chronic bilateral lower extremity weakness.? Patient is bedbound.? Due to consult was placed PT and OT and social media manager to assist with discharge planning 7.? Diabetes mellitus type II complications including peripheral neuropathy -patient's oral hypoglycemics held. Placed on long acting insulin, Accu-Cheks a.c. and at bedtime and covered with sliding scale insulin 8.? Dyslipidemia -Patient is on statin therapy, continued at home dose 9.? Hypothyroidism - Patient is on levothyroxine home dose continued 10.? Depression with anxiety ? Patient is on duloxetine did continue 8.? Class II obesity with BMI of 39 ? Patient with multiple sclerosis complicates effort regarding weight loss 12. IUD migration -Discussed with gynecology, IUD migration to cervix noted on CT. Not as effective in this location for prevention but should still have effect for menstrual cycles. Patient can be seen in the office upon discharge with either Dr. Wright or her own oracle iam consultant if applicable for this to be removed or replaced 13 .? DVT prophylaxis ? SC Lovenox Time spent in the patient's overall evaluation,decision-making process, review of diagnostic data, adjustment of management, discussion with other providers, nursing nursing and ancillary staff involved in patient's care documentation, 36minutes Charges/Coding Visit Charges Inpatient E&M: 59355 Subs Hosp L2
--- NOTE | 2022-08-11 08:33 | PCM.RX.CS ---
Consult Pharmacy has been consulted to manage selected antiobiotic: Vancomycin Type of Consult: Follow-up Labs: Sodium 138 mmol/L (136-145) 08/11/22 06:10 Potassium 3.8 mmol/L (3.5-5.1) 08/11/22 06:10 Chloride 110 mmol/L (98-107) H 08/11/22 06:10 Carbon Dioxide 23.0 mmol/L (21.0-32.0) 08/11/22 06:10 Anion Gap 5 (5-15) 08/11/22 06:10 BUN 15 mg/dL (7-18) 08/11/22 06:10 Creatinine 1.05 mg/dL (0.55-1.02) H 08/11/22 06:10 Est GFR (MDRD) Af Amer 69 mL/min (>60) 08/11/22 06:10 Est GFR (MDRD) Non-Af 57 mL/min (>60) L 08/11/22 06:10 BUN/Creatinine Ratio 14.3 RATIO (10-20) 08/11/22 06:10 Glucose 103 mg/dL (74-106) 08/11/22 06:10 Vancomycin Trough 26.0 ug/mL (5.0-15.0) H 08/10/22 12:07 Random Vancomycin 20.9 ug/mL (0.0-15.0) H 08/11/22 06:10 Microbiology: Microbiology 08/08/22 10:10 Blood Culture (Wb) - Left Wrist Blood Culture - Preliminary No growth in 48 hours. 08/08/22 10:15 Blood Culture (Wb) - Right Forearm Blood Culture - Preliminary No growth in 48 hours. 08/08/22 10:47 Urine, Clean Catch Urine Culture - Final Mixed Culture 08/08/22 10:04 Wound Drainage - Buttock Gram Stain - Final 08/08/22 10:04 Wound Drainage - Buttock Wound Culture - Preliminary Proteus mirabilis GNR lactose order filler 08/08/22 10:04 Wound Drainage - Buttock Anaerobic Culture - Preliminary Checking for anaerobes, further studies to follow. Goal Trough: 15-20 mcg/mL Pharmacy Plan for Drug Dosing: VANCOMYCIN LEVEL RECEIVED Current Vancomycin Dose: on hold due to elevated trough Number of Doses Received: Vancomycin Level: random level resulted at 20.9 Hours Since Last Dose: Renal Function: SrCr 1.05 Renal Function Trend: Lab/Micro: Vancomycin Plan/Comments: recommend continuing to hold Vancomycin due to trough >20. Check level tomorrow am and dose pending level results Pending Level: 08/12/22 at 0600 Pharmacy Service will continue to monitor and adjust dosing as required. Follow-Up Labs: Trough Vancomycin - 08/12/22 at 0600 (random level)
[2022-08-11 09:10] VITALS: BP 95/60; PULSE 72; RESP 18; TEMP 37.2; O2SAT 99
[2022-08-11] MEDS: DULoxetine Hcl 60 MG Capsule PO ×2 (09:20→22:27)
[2022-08-11] MEDS: Enoxaparin 40 MG/0.4 ML Syringe SC ×2 (09:20→22:28)
[2022-08-11] MEDS: Pregabalin 75 MG Capsule PO ×2 (09:20→22:27)
[2022-08-11] MEDS: Pantoprazole Sodium 40 MG Tablet PO (09:20)
[2022-08-11] MEDS: busPIRone 5 MG Tablet PO ×2 (09:21→22:33)
--- NOTE | 2022-08-11 09:27 | CASEMGMT ---
Discharge Planning SNF list created and given to SW. Hanh Iqbal, Discharge Planning Asst.
--- NOTE | 2022-08-11 10:17 | CON.PCM.ID_ITS ---
Assessment & Plan Assessment/Plan (1) Decubitus ulcer, infected: PLAN: Taken to OR 08/10/[address] Ngo for I&D. Op note reports necrotic tissue went down to bone but bone appeared healthy. On vanc/cefepime. Added flagyl for anaerobic coverage given location. Wound cx with proteus, ecoli, and possible enterococcus. No new surg cxs sent. If infection extended down to bone, plan would be for 6 weeks iv abx, could have po options depending on final cx results. UA with heavy pyuria, ucx with 80-100k mixed smooth. Will follow, thank you. HPI Consult Data Date of Consult: 08/11/22 HPI Narrative Reason for Consultation: abscess HPI Narrative: MARIA D SMITH, is a 62 F with MS, chronic catheter, recurrent uti, presented 08/08 with 2 weeks worsening R buttock wound with redness and purulent drainage. Had not been turning at home often enough. No fever or chills. Did not improve with outpt po abx. Came to ED, admitted on vanc/cefepime. Taken to OR 08/[address] Ngo for I&D down to bone. Feeling ok this AM, pain is at baseline, no n/v. Full ROS performed and neg except as noted above. [facility] Medical History Acute on chronic urinary retention Anxiety Bedbound Bilateral knee pain delivery delivered Current use of insulin Depression Diabetes Family history of MS (multiple sclerosis) Fatigue History of multiple sclerosis Hoarseness Kidney stones Lymphedema MDRO (multiple drug resistant organisms) resistance Morbid obesity Multiple sclerosis Muscle spasm Neurogenic bladder Polyneuropathy Type II diabetes mellitus Vitamin A deficiency Home Medications glimepiride 4 mg tablet 4 mg PO BID DM 12/21/19 [History Last Taken 12/02/21] levothyroxine 50 mcg tablet (Synthroid) 50 mcg PO DAILY thyroid 12/21/19 [History Last Taken 12/02/21] duloxetine 60 mg capsule,delayed release 60 mg PO BID #180 caps 06/30/21 [Rx Last Taken 12/02/21] atorvastatin 80 mg tablet 80 mg PO DAILY cholesterol 12/03/21 [History Last Taken 12/02/21] esomeprazole magnesium 40 mg capsule,delayed release 40 mg PO DAILY stomach 12/03/21 [History Last Taken 12/02/21] furosemide 40 mg tablet 80 mg PO BREAKFAST fluid 12/03/21 [History Last Taken 12/02/21] insulin degludec 200 unit/mL (3 mL) subcutaneous pen (Tresiba FlexTouch U-200 insulin) 50 unit subcut QHS dm 12/03/21 [History Last Taken 12/02/21] metformin 1,000 mg tablet 1,000 mg PO BID DM 12/03/21 [History Last Taken 12/02/21] oxycodone-acetaminophen 5 mg-325 mg tablet 1 tab PO TID PRN MS 12/03/21 [History Last Taken 12/03/21] pregabalin 75 mg capsule 75 mg PO BID pain 12/03/21 [History Last Taken 12/02/21] semaglutide 1 mg/dose (4 mg/3 mL) subcutaneous pen injector (Ozempic) 1 mg subcut QWEEK dm 12/03/21 [History Last Taken 11/29/21] buspirone 5 mg tablet 5 mg PO BID #60 tabs 02/04/22 [Rx Last Taken Unknown] cholecalciferol (vitamin D3) 25 mcg (1,000 unit) tablet (Vitamin D3) 25 mcg PO BID 02/04/22 [History Last Taken Unknown] ondansetron 4 mg disintegrating tablet 4 mg PO Q4H PRN PRN Nausea #10 tabs 06/09/22 [Rx Last Taken Unknown] baclofen 10 mg tablet 10 mg PO Q6H PRN PRN Muscle Spasm 06/12/22 [History Last Taken Unknown] midodrine 10 mg tablet 10 mg PO BID Check with primary doctor 08/11/22 [History Last Taken Unknown] Allergy/AdvReac Type Severity Reaction Status Date / Time ampicillin [From Unasyn] Allergy Severe Rash Verified 02/04/22 12:02 sulbactam [From Unasyn] Allergy Severe Rash Verified 02/04/22 12:02 ciprofloxacin [From Cipro] Allergy Hives Verified 02/04/22 12:02 ciprofloxacin HCl Allergy Hives Verified 02/04/22 12:02 [From Cipro] clindamycin HCl Allergy Hives Verified 02/04/22 12:02 [From Cleocin] clindamycin palmitate HCl Allergy Hives Verified 02/04/22 12:02 [From Cleocin] clindamycin phosphate Allergy Hives Verified 02/04/22 12:02 [From Cleocin] morphine Allergy Hives Verified 02/04/22 12:02 sulfamethoxazole Allergy Hives Verified 02/04/22 12:02 [From Bactrim] trimethoprim [From Bactrim] Allergy Hives Verified 02/04/22 12:02 hydromorphone HCl AdvReac messes Verified 02/04/22 12:02 [From Dilaudid] with my brain Family History Unknown Multiple sclerosis 1st cousin Father Cancer mineral ore processing labourer, black lung, Lung CA. Mother Heart disease Diabetes Heart failure Surgical History H/O hernia repair History of cholecystectomy Social History household members: spouse Smoking Status: Never smoker alcohol intake: never substance use type: does not use Physical Exam Const alert, oriented x3 and no apparent distress General Appearance: cooperative HEENT normocephalic Eyes PERRL and EOMs intact bilaterally Neck supple and No nodes Resp normal air movement and clear to auscultation bilaterally Cardio regular rate and regular rhythm GI soft to palpation, non-tender and non-distended Extremity General Extremity: edema Skin Skin Narrative: reviewed wound photos Neuro CN's II-XII intact bilaterally Lab / Micro Data Attestation: I reviewed the patient's lab results. Result Diagrams: 08/11/22 06:10 08/11/22 06:10 Labs: Laboratory Results - last 24 hr 08/10/22 10:42: POC Glucose 101 08/10/22 12:07: Vancomycin Trough 26.0 H 08/10/22 15:17: POC Glucose 104 08/10/22 21:49: POC Glucose 132 H 08/11/22 06:10: WBC 5.5, RBC 3.07 L, Hgb 9.0 L, Hct 28.9 L, MCV 94.1, MCH 29.3, MCHC 31.1 L, RDW Std Deviation 53.4 H, RDW Coeff of Mele 15.4 H, Plt Count 288, M PV 9.4, Immature Gran % (Auto) 1.800 H, Neut % (Auto) 67.0, Lymph % (Auto) 12.7 L, [place] % (Auto) 10.5 H, Eos % (Auto) 6.9 H, Baso % (Auto) 1.1 H, Absolute Neuts (auto) 3.7, Absolute Lymphs (auto) 0.70 L, Nucleated RBC % 0 08/11/22 06:10: Sodium 138, Potassium 3.8, Chloride 110 H, Carbon Dioxide 23.0, Anion Gap 5, BUN 15, Creatinine 1.05 H, Estim Creat Clear Calc 76.54, Est GFR (MDRD) Af Amer 69, Est GFR (MDRD) Non-Af 57 L, BUN/Creatinine Ratio 14.3, Glucose 103, Calcium 8.0 L, Total Bilirubin 0.20, AST 10 L, ALT < 6 L, Alkaline Phosphatase 77, Total Protein 5.4 L, Albumin 1.8 L, Globulin 3.6, Albumin/Globulin Ratio 0.5 L 08/11/22 06:10: Random Vancomycin 20.9 H 08/11/22 06:55: POC Glucose 95 Micro: Microbiology 08/08/22 10:04 Wound Drainage - Buttock Gram Stain - Final 08/08/22 10:04 Wound Drainage - Buttock Wound Culture - Preliminary Proteus mirabilis Escherichia coli GPC Poss Enterococcus sp 08/08/22 10:04 Wound Drainage - Buttock Anaerobic Culture - Preliminary Checking for anaerobes, further studies to follow. 08/08/22 10:10 Blood Culture (Wb) - Left Wrist Blood Culture - Preliminary No growth in 48 hours. 08/08/22 10:15 Blood Culture (Wb) - Right Forearm Blood Culture - Preliminary No growth in 48 hours. 08/08/22 10:47 Urine, Clean Catch Urine Culture - Final Mixed Culture
[2022-08-11] MEDS: Midodrine HCl 5 MG Tablet 10 MG PO ×2 (10:48→16:19)
--- NOTE | 2022-08-11 10:53 | WOUNDNOTE ---
wound photo: right ischium
--- NOTE | 2022-08-11 11:40 | CASEMGMT ---
Social Work Pt had previously completed HCPOA naming her son Steven Alcocer. Pt requesting additional information regarding living will. SW provided education on Living Will. Pt uncertain if she would want to sign at this time. Living will paperwork left in pt room for pt to read. MARY ANN Ndiaye
--- NOTE | 2022-08-11 11:44 | CASEMGMT ---
Social Work JANELL spoke with MARY ANN Bose from [facility]. While pt is receiving services from [facility], pt has declined social work. Lidya has not visited with pt but has colaberated with [facility] Inspector Watch Assembly Wendi Browne. SW met with pt and discussed discharge plan. Pt continues to state that she does not want to go to SNF. Pts provides needed care including wound care and previously has done IV ATB. Pt is confident he can continue to provide needed care and if IV ATB are warranted, can care for these. Pt dgt Marla is hired by [facility] to be pt's home health aid. Marla is in the home daily from 4-7pm. Pts dgt Kendra was stayng with pt and assisting, but has currently moved back to [place] to care for her child. Pt states if needed, pt can call Kendra and ask her to return to pt home to assist. Pt also has a daughter in law Allison who pt will ask to assist if needed. Also, pt confirms a new hospital bed was delivered to pts home yesterday. SW spoke with pt regarding home health concerns that family is unable to meet care needs. Pt states she is aware of home health concerns but feels family can provide better care than a SNF could. A list of SNF providers including quality and resource use data and consistent with the patient?s preferred geographic region, medical needs, and insurance network were provided from the [employer] Guide in the event pt would change her mind on SNF needs. RNBHARAT updated. [facility] home improvement installer to be updated on discharge date. MARY ANN Ndiaye
[2022-08-11 11:51] LABS: Bedside Glucose 114 mg/dL (74-106)
[2022-08-11 14:04] VITALS: BP 113/67; PULSE 74; RESP 18; TEMP 36.5; O2SAT 98
--- NOTE | 2022-08-11 14:44 | CHAPLAIN ---
Type of Pastoral Visit _x__ Initial Visit ___ Follow-up Visit ___ On-call Visit ___ General Patient Visit ___ Spiritual Assessment ___ Family Conference ___ Bereavement ___ Rapid Response ___ Code Blue ___ Other (describe below) Pastoral Care Referral From _x__ Patient ___ Family ___ Nurse ___ Physician ___ Asphalt Distributor Tender ___ Internet Salesperson ___ Other (describe below) Sacrament/Intervention _x__ Active listening ___ Anointing ___ Latter-Day ___ Bereavement ___ Communion _x__ Eva exploration ___ _x__ Life review _x__ Prayer ___ Reconciliation ___ Sacrament of Sick _x__ Supportive presence ___ Wedding ___ Other (describe below) Pastoral Comments patient was welcoming and 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 and with her other inabilities currently; pt has some help but has concerns about her future; Home Health employee came at this time and the encounter was interrupted; returned shortly thereafter to see patient again; pt is tearful; pt talks about losing her independence and things are getting out of my control; focused visit on how she finds support, encouragement, and peace in life; pt would like to be with her pets and her family which are two most important things to her; pt also would like to be able to go outside and sit in the sun but doesn't have help at this time and the right scooter to make it happen; pt also admits that she would like to get reconnected to a catholic for her support; pt welcomed prayer and was expressive about the time and care given for her emotional needs; pt would be open to future visits
--- NOTE | 2022-08-11 16:21 | CASEMGMT ---
Social Work Pt's home health nurse spoke with pt regarding recommendations for SNF placement. SW met with pt and her son/HCPOA Steven Alcocer and again discussed discharge plans. SW discussed short term SNF placement and why staff is making this recommendation. After extensive conversation regarding benefits of SNF and short term placement vs fpc placement. Pt and son deny need for SNF. Pt placed phone call to dgt Kendra who states she will come to pts house and provide needed care. Pt and son are aware that pt will need wound care, turning, possible IV ATB and medical management for diabetes. Pt and son express understanding and state family can provide for pts needs at home. [facility] updated on d/c plan. CECILIA Magallon updated on plan to return home. MARY ANN Nidaye
[2022-08-11 16:41] LABS: Bedside Glucose 132 mg/dL (74-106)
[2022-08-11 20:00] VITALS: BP 123/67; PULSE 63; RESP 16; TEMP 37.2; O2SAT 100
[2022-08-11] MEDS: Atorvastatin Calcium 80 MG Tablet PO (22:28)
[2022-08-11] MEDS: MELATONIN 3 MG TABLET PO (22:28)
[2022-08-11] MEDS: DAKIN'S SOL HALF STRENGTH (=0.25%) 1 APPLIC TOPICAL (22:33)
[2022-08-11] MEDS: Oxycodone/Apap 5/325 Tablet PO (22:34)
[2022-08-11] MEDS: Insulin Glargine-YFGN 100 UNIT/ML Pen 20 UNIT SC (22:39)
--- NOTE | 2022-08-11 23:11 | NURSING ---
percocet would not scan again tonight. verified w/radha pathak rn
[2022-08-11 23:20] LABS: Bedside Glucose 118 mg/dL (74-106)
[2022-08-12] MEDS: Acetaminophen 500 MG Tablet PO (01:20)
[2022-08-12] MEDS: MELATONIN 3 MG TABLET PO (01:20)
--- NOTE | 2022-08-12 01:23 | NURSING ---
melatonin pulled earlier was dropped on floor and this nurse forgot to pull another
[2022-08-12 01:49] VITALS: BP 102/58; PULSE 65; RESP 16; TEMP 36.7; O2SAT 100
[2022-08-12] MEDS: metroNIDAZOLE 500 MG Tablet PO ×2 (05:54→14:15)
[2022-08-12] MEDS: Levothyroxine 50 MCG Tablet PO (05:55)
[2022-08-12] MEDS: Nystatin Powder 15gm Bottle 1 APPLIC TOPICAL ×2 (05:56→14:15)
[2022-08-12 06:15] LABS: Absolute Lymphocyte Count 1.08 X10^3/uL (0.83-4.51); Absolute Neutrophil Count 3.3 X10^3/uL (2.0-7.7); Basophil# 0.09 X10^3/uL; Basophil% 1.6 % (0-1); Eosinophil# 0.39 X10^3/uL; Hematocrit 29.7 % (37-47); Hemoglobin 9.4 g/dL (12.0-15.0); Lymphocyte # 1.08 X10^3/ul (0.83-4.51); Lymphocyte % 19.4 % (19-41); Mean Corp Hgb Conc 31.6 g/dL (32-36); Mean Corpuscular Hgb 29.7 pg (27.0-32.0); Mean Platelet Vol. 9.6 fl (6.2-12.0); Monocyte# 0.58 X10^3/uL; Monocyte% 10.4 % (0-10); NRBC Flagged by Analyzer 0 % (0-5); Neutrophil # 3.29 X10^3/uL (2.7-7.7); Neutrophil % 59.1 % (47-70); Platelet Count 330 K/mm3 (150-450); RBC Distribution Width CV 15.3 % (11.6-14.6); RBC Distribution Width SD 52.7 fl (35.1-43.9); Red Blood Count 3.16 M/mm3 (4.2-5.4); White Blood Count 5.6 K/mm3 (4.4-11.0)
[2022-08-12 06:49] LABS: Bedside Glucose 98 mg/dL (74-106)
[2022-08-12 06:51] LABS: ALB/GLOB Ratio 0.5 RATIO (0.9-2.4); AST(SGOT) 9 U/L (15-37); Alanine Aminotransfer ALT/SGPT < 6 U/L (13-56); Albumin, Serum 1.8 g/dL (3.2-5.0); Alkaline Phosphatase 72 U/L (45-117); Anion Gap 5 (5-15); BUN 17 mg/dL (7-18); BUN/Creat Ratio 19.8 RATIO (10-20); Calcium,Total 8.2 mg/dL (8.5-10.1); Chloride 110 mmol/L (98-107); Creatinine, Serum 0.86 mg/dL (0.55-1.02); EST Glomerular Filtration Rate 72 mL/min (>60); Est Glom Filt Rate - Afr Amer 87 mL/min (>60); Estimated Creatinine Clearance 93.46 ml/min; Globulin 3.6 g/dL (2.2-4.2); Glucose 104 mg/dL (74-106); Potassium 3.8 mmol/L (3.5-5.1); Protein, Total 5.4 g/dL (6.4-8.2); Sodium Level 138 mmol/L (136-145)
[2022-08-12 06:52] LABS: Vancomycin, Random Level 16.8 ug/mL (0.0-15.0)
--- NOTE | 2022-08-12 07:15 | PCM.RX.CS ---
Consult Pharmacy has been consulted to manage selected antiobiotic: Vancomycin Type of Consult: Follow-up Prior Doses of Antibiotics Received/Current Regimen: Previous dose was 750mg iv q12h Labs: Sodium 138 mmol/L (136-145) 08/12/22 05:56 Potassium 3.8 mmol/L (3.5-5.1) 08/12/22 05:56 Chloride 110 mmol/L (98-107) H 08/12/22 05:56 Carbon Dioxide 23.0 mmol/L (21.0-32.0) 08/12/22 05:56 Anion Gap 5 (5-15) 08/12/22 05:56 BUN 17 mg/dL (7-18) 08/12/22 05:56 Creatinine 0.86 mg/dL (0.55-1.02) 08/12/22 05:56 Est GFR (MDRD) Af Amer 87 mL/min (>60) 08/12/22 05:56 Est GFR (MDRD) Non-Af 72 mL/min (>60) 08/12/22 05:56 BUN/Creatinine Ratio 19.8 RATIO (10-20) 08/12/22 05:56 Glucose 104 mg/dL (74-106) 08/12/22 05:56 Vancomycin Trough 26.0 ug/mL (5.0-15.0) H 08/10/22 12:07 Random Vancomycin 16.8 ug/mL (0.0-15.0) H 08/12/22 05:56 Microbiology: Microbiology 08/08/22 10:15 Blood Culture (Wb) - Right Forearm Blood Culture - Preliminary 08/08/22 10:04 Wound Drainage - Buttock Gram Stain - Final 08/08/22 10:04 Wound Drainage - Buttock Wound Culture - Preliminary Proteus mirabilis Escherichia coli GPC Poss Enterococcus sp 08/08/22 10:04 Wound Drainage - Buttock Anaerobic Culture - Preliminary Checking for anaerobes, further studies to follow. 08/08/22 10:10 Blood Culture (Wb) - Left Wrist Blood Culture - Preliminary No growth in 48 hours. 08/08/22 10:47 Urine, Clean Catch Urine Culture - Final Mixed Culture Weight used for dosin kg Estimated Creatinine Clearance: 64 ml/min Goal Trough: 15-20 mcg/mL Pharmacy Plan for Drug Dosing: Dosing had been held due to level being 20.9 yesterday. Last dose was 6.11 @2358. Today's random level was 16.8 and in goal range of 15-20 mcg/ml. CrCl calculated at ~64ml/min using an adjusted body weight of 58.5kg. Will restart patient on 750mg iv q12h this AM. Trough level has been ordered for before 4th dose per policy. Pharmacy Service will continue to monitor and adjust dosing as required. Follow-Up Labs: Trough Vancomycin - 6.15.23 @2130 before 2200 dose
--- NOTE | 2022-08-12 07:38 | PCM.PN.HOSP ---
Reason for Visit Reason for Visit: Diagnoses Type 2 diabetes mellitus without complications (08/08/22) Local infection of the skin and subcutaneous tissue, unspecified (08/08/22) Pressure ulcer of unspecified site, unspecified stage (08/08/22) Tubulo-interstitial nephritis, not specified as acute or chronic (08/08/22) Unspecified hydronephrosis (08/08/22) Acute kidney failure, unspecified (08/08/22) Calculus of kidney (08/08/22) Disorder of kidney and ureter, unspecified (08/08/22) Neuromuscular dysfunction of bladder, unspecified (08/08/22) Urinary tract infection, site not specified (08/08/22) Retention of urine, unspecified (08/08/22) Displacement of intrauterine contraceptive device, initial encounter (08/08/22) Subjective Subjective Awaiting final wound cultures. Rating her Pain at 08/08 Objective Data Objective Data Vital Signs: Vital Signs Temp Pulse Resp BP Pulse Ox O2 Del Method 98.1 F 65 16 102/58 L 100 Room Air 08/12/22 01:49 08/12/22 01:49 08/12/22 01:49 08/12/22 01:49 08/12/22 01:49 08/12/22 01:49 Oxygen Delivery Method Room Air Weight: 85.1 kg Body Mass Index (BMI) 39.2 Intake & Output: Intake and Output for Last 24 Hours 08/10/22 08/11/22 08/12/22 23:59 23:59 23:59 Intake Total 4522.5 / 4522.5 2520 / 2520 300 / 300 Output Total 3525 / 3525 1375 / 1375 500 / 500 Balance 997.5 / 997.5 1145 / 1145 -200 / -200 Lab / Micro Data Result Diagrams: 08/12/22 05:56 08/12/22 05:56 Labs: Laboratory Results - last 24 hr 08/11/22 11:32: POC Glucose 114 H 08/11/22 16:15: POC Glucose 132 H 08/11/22 22:38: POC Glucose 118 H 08/12/22 05:56: WBC 5.6, RBC 3.16 L, Hgb 9.4 L, Hct 29.7 L, MCV 94.0, MCH 29.7, MCHC 31.6 L, RDW Std Deviation 52.7 H, RDW Coeff of Mele 15.3 H, Plt Count 330, MPV 9.6, Immature Gran % (Auto) 2.500 H, Neut % (Auto) 59.1, Lymph % (Auto) 19.4, [place] % (Auto) 10.4 H, Eos % (Auto) 7.0 H, Baso % (Auto) 1.6 H, Absolute Neuts (auto) 3.3, Absolute Lymphs (auto) 1.08, Nucleated RBC % 0 08/12/22 05:56: Sodium 138, Potassium 3.8, Chloride 110 H, Carbon Dioxide 23.0, Anion Gap 5, BUN 17, Creatinine 0.86, Estim Creat Clear Calc 93.46, Est GFR (MDRD) Af Amer 87, Est GFR (MDRD) Non-Af 72, BUN/Creatinine Ratio 19.8, Glucose 104, Calcium 8.2 L, Total Bilirubin 0.20, AST 9 L, ALT < 6 L, Alkaline Phosphatase 72, Total Protein 5.4 L, Albumin 1.8 L, Globulin 3.6, Albumin/Globulin Ratio 0.5 L 08/12/22 05:56: Random Vancomycin 16.8 H 08/12/22 05:57: POC Glucose 98 Micro: Microbiology 08/08/22 10:15 Blood Culture (Wb) - Right Forearm Blood Culture - Preliminary 08/08/22 10:04 Wound Drainage - Buttock Gram Stain - Final 08/08/22 10:04 Wound Drainage - Buttock Wound Culture - Preliminary Proteus mirabilis Escherichia coli GPC Poss Enterococcus sp 08/08/22 10:04 Wound Drainage - Buttock Anaerobic Culture - Preliminary Checking for anaerobes, further studies to follow. 08/08/22 10:10 Blood Culture (Wb) - Left Wrist Blood Culture - Preliminary No growth in 48 hours. 08/08/22 10:47 Urine, Clean Catch Urine Culture - Final Mixed Culture Physical Exam Narrative GENERAL: cooperative HEENT: Atraumatic; normocephalic EYES; Anicteric, Normal Conjunctiva NECK; supple, normal thyroid, RESPIRATORY: Diminished to auscultation CARDIOVASCULAR:? Regular S1 S2, GI:? soft, normoactive bowel sounds, : No Renal angle tenderness; EXTREMITIES: Bipedal edema, bilateral stasis dermatitis MUSCULOSKELETAL:? no muscle wasting Skin: Patient has right buttock ulcer for over tomorrow Psych: Cooperative Assessment & Plan Assessment/Plan (1) Decubitus ulcer, infected: (2) UTI (urinary tract infection): (3) EDWINA (acute kidney injury): (4) Pyelonephritis: PLAN: Plan Patient is a 62-year-old lady with history of multiple sclerosis admitted with right ischial decubitus ulcer 1. Right distal ischial decubitus ulcer -with a right ischial rectal fossa/medial buttock residual abscess or phlegmon 3.9 x [address], patient started on broad-spectrum antibiotic therapy with consultation placed infectious disease General surgery consulted patient seen by Dr. 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 Rating her Pain at 6/10 2. Urinary tract infection UTI associated with/due to the indwelling catheter with concerns for right-sided pyelonephritis -CT with striated enhancement of right kidney concerning for pyelonephritis and urothelial enhancement concerning for UTI, UA consistent with this. Started on broad-spectrum antibiotic therapy cultures sent results pending next 3 1.3cm complex right medial cystic lesion -Renal abscess could not be ruled out as well as possible pyelonephritis as stated above patient is on broad-spectrum antibiotic therapy 4. Multiple renal calculi with mild bilateral hydronephrosis -Has bilateral ureteral stents in place, there is a 5 mm distal ureteral calculus on the right side with mild hydronephrosis and multiple left renal calculi with large UVJ calculus and mild left hydronephrosis with ureteral stent in place. Consult placed to urology 5. EDWINA on CKD stage IIIb -Patient is on Furosemide held management IV fluid with monitoring of electrolytes ordered patient improving with conservative management -08/09: Creatinine improving today with conservative measures 6.? Multiple sclerosis with chronic bilateral lower extremity weakness.? Patient is bedbound.? Due to consult was placed PT and OT and social media campaign manager to assist with discharge planning 7.? Diabetes mellitus type II complications including peripheral neuropathy -patient's oral hypoglycemics held. Placed on long acting insulin, Accu-Cheks a.c. and at bedtime and covered with sliding scale insulin 8.? Dyslipidemia -Patient is on statin therapy, continued at home dose 9.? Hypothyroidism - Patient is on levothyroxine home dose continued 10.? Depression with anxiety ? Patient is on duloxetine did continue 8.? Class II obesity with BMI of 39 ? Patient with multiple sclerosis complicates effort regarding weight loss 12. IUD migration -Discussed with gynecology, IUD migration to cervix noted on CT. Not as effective in this location for prevention but should still have effect for menstrual cycles. Patient can be seen in the office upon discharge with either Dr. Wright or her own director of student financial services if applicable for this to be removed or replaced 13 .? DVT prophylaxis ? SC Lovenox Time spent in the patient's overall evaluation,decision-making process, review of diagnostic data, adjustment of management, discussion with other providers, nursing nursing and ancillary staff involved in patient's care documentation, 36minutes Charges/Coding Visit Charges Inpatient E&M: 06211 Subs Hosp L2
[2022-08-12 08:30] VITALS: BP 137/69; PULSE 62; RESP 16; TEMP 36.4; O2SAT 99
[2022-08-12] MEDS: DULoxetine Hcl 60 MG Capsule PO (09:37)
[2022-08-12] MEDS: Pregabalin 75 MG Capsule PO (09:37)
[2022-08-12] MEDS: Enoxaparin 40 MG/0.4 ML Syringe SC (09:37)
[2022-08-12] MEDS: Pantoprazole Sodium 40 MG Tablet PO (09:37)
[2022-08-12] MEDS: busPIRone 5 MG Tablet PO (09:37)
[2022-08-12] MEDS: Midodrine HCl 5 MG Tablet 10 MG PO (09:37)
[2022-08-12] MEDS: DAKIN'S SOL HALF STRENGTH (=0.25%) 1 APPLIC TOPICAL (09:38)
[2022-08-12 12:05] LABS: Bedside Glucose 134 mg/dL (74-106)
--- NOTE | 2022-08-12 13:32 | CASEMGMT ---
Addendum entered by Naun Rodriguez 08/12/22 14:33: Meds have been e-scribed to [facility]. Call to [facility] and spoke to Kristy for pereyra check. She states all meds went through and have $0 co-pay. Addendum entered by Naun Rodriguez 08/12/22 13:52: Discharge order has been placed. Jeaneth @ [facility] made aware. Original Note: TRUNG NICHOLSON NOTE: Per Dr Vicente, pt can discharge home on PO atb's. TRUNG CM to room to discuss d/c planning w/pt. Pt confirms she wishes to return home w/[facility]. She states they have arrangements made for several family members to alternate taking turns taking care of her, stating her DIL will be helping during the NOC, her in the AM's, and also has a dtr coming from [place] to help care for her. She states the hospital bed has been delivered to her home and that she has a pressure-relieving mattress. She states she will need more Dakin's solution and gauze and her family will be able to get this. She was made aware bottle of Dakin's solution in her room will be sent home w/her. TRUNG Henson, made aware this is to be sent home w/her @ discharge. Pt denies having any further discharge planning needs or concerns and made aware to ask for CM if anything further arises. She voices understanding. Call placed to [facility] and she was made aware pt wishing to d/c home w/[facility]. Dr Iverson made aware Dr Vicente recommending PO atb's @ d/c. Guanakito SÁNCHEZ RN CM
--- NOTE | 2022-08-12 13:44 | PCM.PN.ID ---
Physical Exam Narrative Feeling ok, no fever, no abd pain, no nausea. Const alert and no apparent distress General Appearance: cooperative Resp normal air movement and clear to auscultation bilaterally Cardio regular rate and regular rhythm GI soft to palpation, non-tender and non-distended Skin Skin Narrative: reviewed wound photo ID ID: Route of nutrition/ use of supplements: [] Nutritional Intake: [] IV Site: [] Valenzuela Catheter: [] Assessment & Plan Assessment/Plan (1) Decubitus ulcer, infected: PLAN: Taken to OR 08/10/[address] Ngo for I&D. Op note reports necrotic tissue went down to bone but bone appeared healthy. On vanc/cefepime. Added flagyl for anaerobic coverage given location. Wound cx with proteus, ecoli, and possible enterococcus. No new surg cxs sent. UA with heavy pyuria, ucx with 80-100k mixed smooth. Ok for home with 7 days po linezolid/omnicef/flagyl, wrote rx. Ok for linezolid with SSRI and buspar for short course, monitor for fever/serotonin syndrome. 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
--- NOTE | 2022-08-12 13:48 | PCM.DC.SUM ---
Providers Date of Admission: 08/08/22 Date of Discharge: 08/12/22 Primary Care Physician: LAURA FLORES Consultations 08/08/22 16:10 Consult: General Surgery Routine Consulting Provider: Rock Ngo Reason for Consult: R ischial decub w/ 4x4cm colletion concern for abscess, some drainage spont EMERGENT Consult: No MD Notified: Yes Date Notified: 08/08/22 Time Notified: 16:18 Method of Notification: Text Consult: Infectious Disease Routine Consulting Provider: Robbie Vicente Reason for Consult: hx multi drug resistent UTIs, current UTI, cx pending EMERGENT Consult: No MD Notified: Yes Date Notified: 08/10/22 Time Notified: 07:36 Method of Notification: Text Consult: Onc/Wound/mining speculator Routine Comment: Reason for Consult:: right ischial decub ulcer Consult: Urology Routine Consulting Provider: Aimee Batista Reason for Consult: hx stents, now 5mm ureteral stone on R w/ mild hydro and UTI w/ poss pyelo EMERGENT Consult: No Notified: Yes Date Notified: 08/08/22 Time Notified: 16:57 Method of Notification: Verbal 08/10/22 14:00 Consult: Onc/Wound/mining speculator Routine Comment: Reason for Consult:: right buttock ulcer Reason For Visit: UTI, ISCHEAL WOUND Diagnosis Discharge Diagnosis (1) Decubitus ulcer, infected: Status: Acute Code(s): L89.90 - Pressure ulcer of unspecified site, unspecified stage; L08.9 - Local infection of the skin and subcutaneous tissue, unspecified Plan Patient is a 62-year-old lady with history of multiple sclerosis admitted with right ischial decubitus ulcer 1. Right distal ischial decubitus ulcer -with a right ischial rectal fossa/medial buttock residual abscess or phlegmon 3.9 x [address], patient started on broad-spectrum antibiotic therapy with consultation placed infectious disease General surgery consulted patient seen by Dr. 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 Rating her Pain at 6/10 ? Patient was discharged home on oral antibiotic therapy prescribed by Dr. Vicente with infectious disease 2. Urinary tract infection UTI associated with/due to the indwelling catheter with concerns for right-sided pyelonephritis -CT with striated enhancement of right kidney concerning for pyelonephritis and urothelial enhancement concerning for UTI, UA consistent with this. Started on broad-spectrum antibiotic therapy cultures sent results pending next 3 1.3cm complex right medial cystic lesion -Renal abscess could not be ruled out as well as possible pyelonephritis as stated above patient is on broad-spectrum antibiotic therapy 4. Multiple renal calculi with mild bilateral hydronephrosis -Has bilateral ureteral stents in place, there is a 5 mm distal ureteral calculus on the right side with mild hydronephrosis and multiple left renal calculi with large UVJ calculus and mild left hydronephrosis with ureteral stent in place. Consult placed to urology 5. EDWINA on CKD stage IIIb -Patient is on Furosemide held management IV fluid with monitoring of electrolytes ordered patient improving with conservative management -08/09: Creatinine improving today with conservative measures 6.? Multiple sclerosis with chronic bilateral lower extremity weakness.? Patient is bedbound.? Due to consult was placed PT and OT and web content & social media manager to assist with discharge planning 7.? Diabetes mellitus type II complications including peripheral neuropathy -patient's oral hypoglycemics held. Placed on long acting insulin, Accu-Cheks a.c. and at bedtime and covered with sliding scale insulin 8.? Dyslipidemia -Patient is on statin therapy, continued at home dose 9.? Hypothyroidism - Patient is on levothyroxine home dose continued 10.? Depression with anxiety ? Patient is on duloxetine did continue 8.? Class II obesity with BMI of 39 ? Patient with multiple sclerosis complicates effort regarding weight loss 12. IUD migration -Discussed with gynecology, IUD migration to cervix noted on CT. Not as effective in this location for prevention but should still have effect for menstrual cycles. Patient can be seen in the office upon discharge with either Dr. Wright or her own sand filler if applicable for this to be removed or replaced 13 .? DVT prophylaxis ? SC Lovenox Medications at Discharge Home Medications glimepiride 4 mg tablet 4 mg PO BID DM 12/21/19 levothyroxine 50 mcg tablet (Synthroid) 50 mcg PO DAILY thyroid 12/21/19 duloxetine 60 mg capsule,delayed release 60 mg PO BID #180 caps 06/30/21 atorvastatin 80 mg tablet 80 mg PO DAILY cholesterol 12/03/21 esomeprazole magnesium 40 mg capsule,delayed release 40 mg PO DAILY stomach 12/03/21 furosemide 40 mg tablet 80 mg PO BREAKFAST fluid 12/03/21 insulin degludec 200 unit/mL (3 mL) subcutaneous pen (Tresiba FlexTouch U-200 insulin) 50 unit subcut QHS dm 12/03/21 metformin 1,000 mg tablet 1,000 mg PO BID DM 12/03/21 oxycodone-acetaminophen 5 mg-325 mg tablet 1 tab PO TID PRN MS 12/03/21 pregabalin 75 mg capsule 75 mg PO BID pain 12/03/21 semaglutide 1 mg/dose (4 mg/3 mL) subcutaneous pen injector (Ozempic) 1 mg subcut QWEEK dm 12/03/21 buspirone 5 mg tablet 5 mg PO BID #60 tabs 02/04/22 cholecalciferol (vitamin D3) 25 mcg (1,000 unit) tablet (Vitamin D3) 25 mcg PO BID 02/04/22 ondansetron 4 mg disintegrating tablet 4 mg PO Q4H PRN PRN Nausea #10 tabs 06/09/22 baclofen 10 mg tablet 10 mg PO Q6H PRN PRN Muscle Spasm 06/12/22 midodrine 10 mg tablet 10 mg PO BID Check with primary doctor 08/11/22 cefdinir 300 mg capsule 300 mg PO BID 10 days #20 caps 08/12/22 linezolid 600 mg tablet 600 mg PO BID #14 tabs 08/12/22 metronidazole 500 mg tablet 500 mg PO Q8H 7 days #21 tabs 08/12/22 Hospital Course Summary of Care Provided Minutes Spent on Discharge: 35 Physical Exam Narrative GENERAL: cooperative HEENT: Atraumatic; normocephalic EYES; Anicteric, Normal Conjunctiva NECK; supple, normal thyroid, RESPIRATORY: Diminished to auscultation CARDIOVASCULAR:? Regular S1 S2, GI:? soft, normoactive bowel sounds, : No Renal angle tenderness; EXTREMITIES: Bipedal edema, bilateral stasis dermatitis MUSCULOSKELETAL:? no muscle wasting Skin: Patient has right buttock ulcer Psych: Cooperative Weight / BMI Weight Weight: 85.1 kg Body Mass Index (BMI) 39.2 ABG / Lab / Microbiology Data Result Diagrams: 08/12/22 05:56 08/12/22 05:56 Laboratory: Laboratory Results - last 24 hr 08/11/22 16:15: POC Glucose 132 H 08/11/22 22:38: POC Glucose 118 H 08/12/22 05:56: WBC 5.6, RBC 3.16 L, Hgb 9.4 L, Hct 29.7 L, MCV 94.0, MCH 29.7, MCHC 31.6 L, RDW Std Deviation 52.7 H, RDW Coeff of Mele 15.3 H, Plt Count 330, MPV 9.6, Immature Gran % (Auto) 2.500 H, Neut % (Auto) 59.1, Lymph % (Auto) 19.4, [place] % (Auto) 10.4 H, Eos % (Auto) 7.0 H, Baso % (Auto) 1.6 H, Absolute Neuts (auto) 3.3, Absolute Lymphs (auto) 1.08, Nucleated RBC % 0 08/12/22 05:56: Sodium 138, Potassium 3.8, Chloride 110 H, Carbon Dioxide 23.0, Anion Gap 5, BUN 17, Creatinine 0.86, Estim Creat Clear Calc 93.46, Est GFR (MDRD) Af Amer 87, Est GFR (MDRD) Non-Af 72, BUN/Creatinine Ratio 19.8, Glucose 104, Calcium 8.2 L, Total Bilirubin 0.20, AST 9 L, ALT < 6 L, Alkaline Phosphatase 72, Total Protein 5.4 L, Albumin 1.8 L, Globulin 3.6, Albumin/Globulin Ratio 0.5 L 08/12/22 05:56: Random Vancomycin 16.8 H 08/12/22 05:57: POC Glucose 98 08/12/22 11:44: POC Glucose 134 H Microbiology: Microbiology 08/08/22 10:04 Wound Drainage - Buttock Gram Stain - Final 08/08/22 10:04 Wound Drainage - Buttock Wound Culture - Final Proteus mirabilis Escherichia coli Enterococcus faecalis 08/08/22 10:04 Wound Drainage - Buttock Anaerobic Culture - Final No anaerobic bacteria isolated. 08/08/22 10:15 Blood Culture (Wb) - Right Forearm Blood Culture - Preliminary 08/08/22 10:10 Blood Culture (Wb) - Left Wrist Blood Culture - Preliminary No growth in 48 hours. 08/08/22 10:47 Urine, Clean Catch Urine Culture - Final Mixed Culture D/C Instructions Discharge Diet: No restrictions Discharge Activity: Return to Normal Activity Call your doctor if you observe: Fever of 101 or Higher, Shortness of breath, Fainting spells and Chest pain Meaningful Use Info Meaningful Use Diagnoses (Choose all that apply): None applicable Discharge Plan Admission Admit Date/Time: 08/08/22 14:35 Primary Reason for Your Visit: Decubitus ulcer Attending Provider: Ahsan Iverson Primary Care Provider: YG BUNCH Consulting Providers: Rock Ngo ; Aimee Batista ; Nicolasa Stokes ; Robbie Vicente Discharge Orders/Prescriptions Prescriptions: New linezolid 600 mg tablet 600 mg PO BID Qty: 14 0RF Rx Instructions: Ok to give with duloxetine and buspar for short course. cefdinir 300 mg capsule 300 mg PO BID 10 Days Qty: 20 0RF metronidazole 500 mg tablet 500 mg PO Q8H 7 Days Qty: 21 0RF Continued levothyroxine [Synthroid] 50 mcg tablet 50 mcg PO DAILY glimepiride 4 mg tablet 4 mg PO BID buspirone 5 mg tablet 5 mg PO BID Qty: 60 5RF cholecalciferol (vitamin D3) [Vitamin D3] 25 mcg (1,000 unit) tablet 25 mcg PO BID furosemide 40 mg tablet 80 mg PO BREAKFAST Label Comments: TAKE 2 TABLETS EVERY MORNING and 1 IN THE EVENING atorvastatin 80 mg tablet 80 mg PO DAILY Label Comments: TAKE 1 TABLET BY MOUTH DAILY oxycodone-acetaminophen 5-325 mg tablet 1 tab PO TID PRN (Reason: MS ) Label Comments: Take one (1) tablet by mouth three times a day, as needed for multiple sclerosis contractures PALLIATIVE PATIENT metformin 1,000 mg tablet 1,000 mg PO BID Label Comments: TAKE 1 TABLET TWICE DAILY esomeprazole magnesium 40 mg capsule,delayed release(DR/EC) 40 mg PO DAILY Label Comments: TAKE 1 CAPSULE EVERY DAY pregabalin 75 mg capsule 75 mg PO BID Label Comments: Take 1 capsule by mouth twice a day Palliative patient insulin degludec [Tresiba FlexTouch U-200] 200 unit/mL (3 mL) insulin pen 50 unit SUBCUT QHS Label Comments: Inject 80 units sub-q every night at bedtime. Ozempic 1 mg/dose (4 mg/3 mL) pen injector 1 mg SUBCUT QWEEK Label Comments: INJECT 1mg under the skin EVERY week FOR 90 DAYS ondansetron 4 mg tablet,disintegrating 4 mg PO Q4H PRN PRN (Reason: Nausea) Qty: 10 0RF baclofen 10 mg tablet 10 mg PO Q6H PRN PRN (Reason: Muscle Spasm) midodrine 10 mg tablet 10 mg PO BID duloxetine 60 mg capsule,delayed release(DR/EC) 60 mg PO BID Qty: 180 0RF Referrals / Follow Up: Mayra Garvey DO [Med Staff - Active Staff] - 08/18/22 8:10 am (You are found to have displacement of your IUD on admission, please follow-up with gynecology in the office upon discharge and this can be replaced. This appointment will be with Janette Bloom NP.) YG BUNCH, METAL CEILING HANGER-C [Primary Care Provider] - Disposition Disposition (needs filled in before D/C Order can be placed): Home Health Service Charges/Coding Visit Charges Inpatient E&M: 09844 Disch Hosp >30min
[2022-08-12 14:24] VITALS: BP 110/53; PULSE 58; RESP 16; TEMP 36.5; O2SAT 96
--- NOTE | 2022-08-12 14:47 | PHA.DC.MC ---
Pharmacy Service has performed discharge medication reconciliation and counseling for this patient. 1. CEFDINIR 300MG PO Q12 X 10 DAYS 2. LINEZOLID 600MG PO BID X 7 DAYS (per perez VASQUEZ for short course with buspirone) 3. METRONIDAZOLE 500MG PO Q8 X 7 DAYS The patient's discharge medication list was reviewed for discrepancies and discrepancies were resolved. Home Medications glimepiride 4 mg tablet 4 mg PO BID DM 12/21/19 levothyroxine 50 mcg tablet (Synthroid) 50 mcg PO DAILY thyroid 12/21/19 duloxetine 60 mg capsule,delayed release 60 mg PO BID #180 caps 06/30/21 atorvastatin 80 mg tablet 80 mg PO DAILY cholesterol 12/03/21 esomeprazole magnesium 40 mg capsule,delayed release 40 mg PO DAILY stomach 12/03/21 furosemide 40 mg tablet 80 mg PO BREAKFAST fluid 12/03/21 insulin degludec 200 unit/mL (3 mL) subcutaneous pen (Tresiba FlexTouch U-200 insulin) 50 unit subcut QHS dm 12/03/21 metformin 1,000 mg tablet 1,000 mg PO BID DM 12/03/21 oxycodone-acetaminophen 5 mg-325 mg tablet 1 tab PO TID PRN MS 12/03/21 pregabalin 75 mg capsule 75 mg PO BID pain 12/03/21 semaglutide 1 mg/dose (4 mg/3 mL) subcutaneous pen injector (Ozempic) 1 mg subcut QWEEK dm 12/03/21 buspirone 5 mg tablet 5 mg PO BID #60 tabs 02/04/22 cholecalciferol (vitamin D3) 25 mcg (1,000 unit) tablet (Vitamin D3) 25 mcg PO BID 02/04/22 ondansetron 4 mg disintegrating tablet 4 mg PO Q4H PRN PRN Nausea #10 tabs 06/09/22 baclofen 10 mg tablet 10 mg PO Q6H PRN PRN Muscle Spasm 06/12/22 midodrine 10 mg tablet 10 mg PO BID Check with primary doctor 08/11/22 cefdinir 300 mg capsule 300 mg PO BID 10 days #20 caps 08/12/22 linezolid 600 mg tablet 600 mg PO BID #14 tabs 08/12/22 metronidazole 500 mg tablet 500 mg PO Q8H 7 days #21 tabs 08/12/22 The patient was counseled on the following discharge medications and changes in medications for homegoing were reviewed. The Reason for Use, instructions for use, and potential side effects were reviewed for all new medications. The patient's questions regarding all of their medications were answered. The patient was able to verbally demonstrate an understanding of their discharge medications. Patient counseled by pharmacy operations specialistTacos.
[2022-08-12 14:55] VITALS: BP 110/53; PULSE 58; RESP 18; TEMP 36.5; O2SAT 96
--- NOTE | 2022-08-12 15:03 | CASEMGMT ---
Social Work Pt is ready for discharge home today. Discharge summary faxed to pt D[employer] Processing Technician Wendi Browne. MARY ANN Ndiaye
== END 2022-08-12 16:20 | disposition home health service (06) | DRG 570 ==
LOC: ED 14:06 → MS3 15:02
PROVIDERS: Anesthesiology; Hospitalist; Surgery; Admitting Provider Internal Medicine; Emergency Provider Emergency Medicine; PCP Nurse Practitioner Family; Visit Provider Internal Medicine
PROC: 0JB90ZZ Excision of Buttock Subcutaneous Tissue and Fascia, Open Approach (ICD-10-PCS; principal; 2022-08-10 13:15)
DX: L89.313 Pressure ulcer of right buttock, stage 3 (principal); R53.2 Functional quadriplegia; N17.9 Acute kidney failure, unspecified; N13.6 Pyonephrosis; T83.511A Infection and inflammatory reaction due to indwelling urethral catheter, initial encounter; L02.31 Cutaneous abscess of buttock; Z16.35 Resistance to multiple antimicrobial drugs; E11.22 Type 2 diabetes mellitus with diabetic chronic kidney disease; E11.42 Type 2 diabetes mellitus with diabetic polyneuropathy; N18.32 Chronic kidney disease, stage 3b; E66.01 Morbid (severe) obesity due to excess calories; G35 Multiple sclerosis; Z79.4 Long term (current) use of insulin; E03.9 Hypothyroidism, unspecified; E78.5 Hyperlipidemia, unspecified; F41.9 Anxiety disorder, unspecified; T83.32XA Displacement of intrauterine contraceptive device, initial encounter; X58.XXXA Exposure to other specified factors, initial encounter; Z68.39 Body mass index [BMI] 39.0-39.9, adult; F32.A Depression, unspecified; N31.9 Neuromuscular dysfunction of bladder, unspecified; B95.2 Enterococcus as the cause of diseases classified elsewhere; B96.4 Proteus (mirabilis) (morganii) as the cause of diseases classified elsewhere; B96.20 Unspecified Escherichia coli [E. coli] as the cause of diseases classified elsewhere; Z74.01 Bed confinement status; Z96.0 Presence of urogenital implants; Z79.84 Long term (current) use of oral hypoglycemic drugs; Z79.899 Other long term (current) drug therapy
CPT/HCPCS: 36415; 51702; 72193; 80048; 80053; 80202; 81001; 82962; 83036; 83605; 83735; 84443; 85025; 85610; 85730; 87040; 87070; 87075; 87077; 87086; 87088; 87186; 87205; 93005; 97802; 99285; J7030; J7050; Q9967; A4216; J2405

== ENCOUNTER 2022-08-21 16:13 | Outpatient (RCR) | payer MEDICARE, MEDICAID, SELFPAY ==
[2022-08-21 16:43] LABS: Color, Urine Brown (Yellow); Glucose, Dipstick Normal (Normal); Ketone-Dipstick 5 mg/dl (Negative); Leukocyte Esterase-Dipstick 500 /ul (Negative); Nitrite-Dipstick Positive (Negative); Occult Blood-Urine 250 /ul (Negative); Protein-Dipstick 100 mg/dl (Negative); Urine Bilirubin Dipstick Negative (Negative); Urine Clarity Turbid (Clear); Urine Urobilinogen Normal (Normal); Urine pH 6.5 (5.0 - 8.0)
== END 2022-08-21 18:00 | disposition home or self-care (01) ==
LOC: HHLAB 16:13
PROVIDERS: PCP Nurse Practitioner Family; Referring Provider Nurse Practitioner Family; Visit Provider Nurse Practitioner Family
DX: R33.9 Retention of urine, unspecified (principal); L89.314 Pressure ulcer of right buttock, stage 4; L02.31 Cutaneous abscess of buttock
CPT/HCPCS: 81002; 87077; 87086; 87088; 87186

== ENCOUNTER 2022-09-05 18:05 | Inpatient (IN) | payer MEDICARE, MEDICAID, SELFPAY ==
[2022-09-05 18:07] VITALS: BP 90/51; PULSE 89; RESP 18; TEMP 36.4; O2SAT 100; BMI 40.5
[2022-09-05] MEDS: 0.9% Normal Saline 1,000 ML 999 ML IV ×4 (18:20→21:49)
--- NOTE | 2022-09-05 18:26 | EKG12_ITS ---
Test Reason : WEAKNESS Blood Pressure : / mmHG Vent. Rate : 081 BPM Atrial Rate : 081 BPM P-R Int : 180 ms QRS Dur : 102 ms QT Int : 534 ms P-R-T Axes : 063 -53 040 degrees QTc Int : 620 ms Normal sinus rhythm Left axis deviation Inferior infarct , age undetermined Anterolateral infarct , age undetermined Prolonged QT Abnormal ECG Confirmed by SAVI MARTINES, TRISTEN ([id number]), senior editor ALMAZ YE ([id number]) on 09/07/2022 11:31:12 A M Referred By: Confirmed By:USHA HOU MD
--- NOTE | 2022-09-05 18:31 | EDS_ITS ---
HPI History of Present Illness Chief Complaint: Weakness Narrative Narrative: 62-year-old female past medical history of multiple sclerosis, is bedridden, and has indwelling Valenzuela catheter presents with 3 days of weakness. She states she had diarrhea today, but denies any nausea and vomiting. She has been feeling weak over the last 3 days and requested that her family bring her to the ED for evaluation. Of note, she was admitted last month for a decubitus ulcer on the right buttocks which she has finished antibiotics and states is improving rapidly. She just had a dressing change by her family. She presents because of the generalized weakness. She denies any fevers or chills, no other symptoms. [facility] Medical History Acute on chronic urinary retention Anxiety Bedbound Bilateral knee pain delivery delivered Current use of insulin Depression Diabetes Family history of MS (multiple sclerosis) Fatigue History of multiple sclerosis Hoarseness Kidney stones Lymphedema MDRO (multiple drug resistant organisms) resistance Morbid obesity Multiple sclerosis Muscle spasm Neurogenic bladder Polyneuropathy Type II diabetes mellitus Vitamin A deficiency Home Medications glimepiride 4 mg tablet 4 mg PO BID DM 12/21/19 [History Last Taken 12/02/21] levothyroxine 50 mcg tablet (Synthroid) 50 mcg PO DAILY thyroid 12/21/19 [History Last Taken 12/02/21] duloxetine 60 mg capsule,delayed release 60 mg PO BID unsure #180 caps 06/30/21 [Rx Last Taken 12/02/21] atorvastatin 80 mg tablet 80 mg PO DAILY cholesterol 12/03/21 [History Last Taken 12/02/21] esomeprazole magnesium 40 mg capsule,delayed release 40 mg PO DAILY stomach 12/03/21 [History Last Taken 12/02/21] furosemide 40 mg tablet 80 mg PO BREAKFAST fluid 12/03/21 [History Last Taken 12/02/21] insulin degludec 200 unit/mL (3 mL) subcutaneous pen (Tresiba FlexTouch U-200 insulin) 50 unit subcut QHS dm 12/03/21 [History Last Taken 12/02/21] metformin 1,000 mg tablet 1,000 mg PO BID DM 12/03/21 [History Last Taken 12/02/21] oxycodone-acetaminophen 5 mg-325 mg tablet 1 tab PO TID PRN MS 12/03/21 [History Last Taken 12/03/21] pregabalin 75 mg capsule 75 mg PO BID pain 12/03/21 [History Last Taken 12/02/21] semaglutide 1 mg/dose (4 mg/3 mL) subcutaneous pen injector (Ozempic) 1 mg subcut QWEEK dm 12/03/21 [History Last Taken 08/29/22] buspirone 5 mg tablet 5 mg PO BID pt unsure #60 tabs 02/04/22 [Rx Last Taken Unknown] cholecalciferol (vitamin D3) 25 mcg (1,000 unit) tablet (Vitamin D3) 25 mcg PO BID supplement 02/04/22 [History Last Taken Unknown] ondansetron 4 mg disintegrating tablet 4 mg PO Q4H PRN PRN Nausea #10 tabs 06/09/22 [Rx Last Taken Unknown] baclofen 10 mg tablet 10 mg PO Q6H PRN PRN Muscle Spasm 06/12/22 [History Last Taken Unknown] midodrine 10 mg tablet 10 mg PO BID Check with primary doctor 08/11/22 [History Last Taken Unknown] cefdinir 300 mg capsule 300 mg PO BID unknown 10 days #20 caps 08/12/22 [Rx Last Taken Unknown] linezolid 600 mg tablet 600 mg PO BID unknown #14 tabs 08/12/22 [Rx Last Taken Unknown] metronidazole 500 mg tablet 500 mg PO Q8H unknown 7 days #21 tabs 08/12/22 [Rx Last Taken Unknown] Allergy/AdvReac Type Severity Reaction Status Date / Time ampicillin [From Unasyn] Allergy Severe Rash Verified 09/05/22 18:44 sulbactam [From Unasyn] Allergy Severe Rash Verified 09/05/22 18:44 ciprofloxacin [From Cipro] Allergy Hives Verified 09/05/22 18:44 ciprofloxacin HCl Allergy Hives Verified 09/05/22 18:44 [From Cipro] clindamycin HCl Allergy Hives Verified 09/05/22 18:44 [From Cleocin] clindamycin palmitate HCl Allergy Hives Verified 09/05/22 18:44 [From Cleocin] clindamycin phosphate Allergy Hives Verified 09/05/22 18:44 [From Cleocin] morphine Allergy Hives Verified 09/05/22 18:44 sulfamethoxazole Allergy Hives Verified 09/05/22 18:44 [From Bactrim] trimethoprim [From Bactrim] Allergy Hives Verified 09/05/22 18:44 hydromorphone HCl AdvReac messes Verified 09/05/22 18:44 [From Dilaudid] with my brain Family History Unknown Multiple sclerosis 1st cousin Father Cancer blasting gang miner, black lung, Lung CA. Mother Heart disease Diabetes Heart failure Surgical History H/O hernia repair History of cholecystectomy Social History household members: spouse Smoking Status: Never smoker alcohol intake: never substance use type: does not use ROS ROS ED ROS Narrative Constitutional: No fever, no chills. Generalized weakness. HEENT: No sore throat. No neck pain. No loss of vision. No rhinorrhea. Cardiovascular: No chest pain. No palpitations. No pedal edema. Respiratory: No cough, no shortness of breath. Abdominal: No abdominal pain. No nausea. No vomiting. Diarrhea today. Genitourinary: No dysuria. No hematuria. Musculoskeletal: No myalgias. No arthralgias. Neurologic: No headaches. No dizziness. No lightheadedness. Skin: No rash. No change in color. Healing decubitus ulcer right buttocks. Psychiatric: No depression. No anxiety. EXAM Physical Exam Narrative Exam Narrative: Afebrile. Vital signs noted. HEENT: Normocephalic. Atraumatic. PERRL, EOMI. Neck soft and supple. No point tenderness or step off. Cardiovascular: Regular rate and rhythm. No murmurs, rubs, or gallops appreciated. Respiratory: No tachypnea. Lungs clear to auscultation bilaterally. Gastrointestinal: Abdomen soft, nontender, with normoactive bowel sounds. No rebound or guarding. Neurological: Awake. Alert. Consistent with multiple sclerosis, states unable to bend legs/knees. Skin: No rash. Normal color. No pallor. Musculoskeletal: No pedal edema. No erythema of bilateral lower extremities. Const Vital Signs: 09/05/22 18:07 09/05/22 18:19 09/05/22 18:35 Temperature 97.5 F L Temperature Source Oral Pulse Rate 89 Respiratory Rate 18 Respiratory Pattern Irregular Blood Pressure 90/51 L Blood Pressure Mean 64 Pulse Ox 100 Oxygen Delivery Method Room Air Room Air 09/05/22 19:15 Temperature 98.7 F Temperature Source Core Pulse Rate 85 Respiratory Rate 17 Respiratory Pattern Blood Pressure 90/51 L Blood Pressure Mean 64 Pulse Ox 100 Oxygen Delivery Method Room Air MDM MDM MDM Narrative Medical decision making narrative: I reviewed the patient's prior records. She had been admitted mainly for the decubitus ulceration that was infected. I do feel that she may be dehydrated. Sepsis work-up was pursued as there is concern for UTI given her indwelling Valenzuela catheter. EKG was obtained and interpreted by myself as normal sinus rhythm at 81 bpm without ectopy or acute ST changes. No STEMI. No significant change from EKG that was reviewed dated August 10, 2022. I reviewed her laboratory work, she has slightly elevated white count of 14.3 which I think is nonspecific. Hemoglobin is 13.6, hematocrit 42.0, platelet count normal at 370. Coagulation studies are negative. In review of her electrolytes, she is dehydr ated with a sodium of 130 and a chloride of 94. She is also hypokalemic at 1.5. While this was slightly hemolyzed repeat was drawn and is low at 1.1. Her lactic acid is normal at 1.4. Her systolic blood pressure remained in the 90s. She states that her blood pressure usually runs low and even was this low during her last admission. She is still mentating well. I checked her magnesium and it is normal at 1.8. I am not concerned for septic shock as I feel this is her baseline blood pressure. Additionally, urinalysis from her Valenzuela catheter exchange was obtained and she has greater than 100 white cells and positive nitrates. This may be colonization, but given her elevated white count although she does not have a fever I reviewed her laboratory work and prior records and she has received cefepime previously. Given her profound hypokalemia and UTI, patient was discussed with Dr. Villagran for admission. She is in stable condition. History & Record Review Discussion w/independent historian: Patient Additional record(s) reviewed:: Prior ED visit and Prior labs Lab Data Attestation: I reviewed the patient's lab results. Labs: Laboratory Results - last 24 hr 09/05/22 09/05/22 09/05/22 18:30 18:50 19:30 WBC 14.3 H RBC 4.69 Hgb 13.6 Hct 42.0 MCV 89.6 MCH 29.0 MCHC 32.4 RDW Std Deviation 50.6 H RDW Coeff of Mele 15.5 H Plt Count 370 MPV 11.3 Immature Gran % (Auto) 0.800 Neut % (Auto) 89.3 H Lymph % (Auto) 4.8 L [place] % (Auto) 4.7 Eos % (Auto) 0.1 Baso % (Auto) 0.3 Absolute Neuts (auto) 12.8 H Absolute Lymphs (auto) 0.68 L Nucleated RBC % 0 PT 12.1 INR 0.9 APTT 28.3 Sodium 130 L Potassium 1.5 L* 1.1 L* Chloride 94 L Carbon Dioxide 19.0 L Anion Gap 17 H BUN 25 H Creatinine 1.45 H Estim Creat Clear Calc 57.32 Est GFR (MDRD) Af Amer 47 L Est GFR (MDRD) Non-Af 39 L BUN/Creatinine Ratio 17.2 Glucose 171 H Lactic Acid 1.4 Calcium 8.1 L Magnesium 1.8 Total Bilirubin 0.50 AST 10 L ALT < 6 L Alkaline Phosphatase 102 Total Protein 6.6 Albumin 2.4 L Globulin 4.2 Albumin/Globulin Ratio 0.6 L Urine Color Urine Clarity Urine pH Ur Specific [place] Urine Protein Urine Glucose (UA) Urine Ketones Urine Occult Blood Urine Nitrite Urine Bilirubin Urine Urobilinogen Ur Leukocyte Esterase Urine RBC Urine WBC Ur Squamous Epith Cells Urine Bacteria Urine Mucus 09/05/22 19:37 WBC RBC Hgb Hct MCV MCH MCHC RDW Std Deviation RDW Coeff of Mele Plt Count MPV Immature Gran % (Auto) Neut % (Auto) Lymph % (Auto) [place] % (Auto) Eos % (Auto) Baso % (Auto) Absolute Neuts (auto) Absolute Lymphs (auto) Nucleated RBC % PT INR APTT Sodium Potassium Chloride Carbon Dioxide Anion Gap BUN Creatinine Estim Creat Clear Calc Est GFR (MDRD) Af Amer Est GFR (MDRD) Non-Af BUN/Creatinine Ratio Glucose Lactic Acid Calcium Magnesium Total Bilirubin AST ALT Alkaline Phosphatase Total Protein Albumin Globulin Albumin/Globulin Ratio Urine Color Yellow Urine Clarity Cloudy Urine pH 6.5 Ur Specific [place] 1.010 Urine Protein 100 H Urine Glucose (UA) Normal Urine Ketones 15 H Urine Occult Blood 250 H Urine Nitrite Positive H Urine Bilirubin 1 H Urine Urobilinogen Normal Ur Leukocyte Esterase 500 H Urine RBC 0 SEEN Urine WBC >100 SEEN Ur Squamous Epith Cells 0 SEEN Urine Bacteria 0 SEEN Urine Mucus 0 SEEN Radiography Diagnostic Testing: Clinical Impression(s) from Imaging Studies Chest X-Ray 09/05/22 19:08 IMPRESSION: No acute cardiopulmonary process. Electronically Signed: Julius Lechuga (Brooks), at 19:19 EDT Reading Location ID and State: [facility] / [place] , Service support , Discharge Plan Dx/Rx/DC Orders Clinical Impression: UTI (urinary tract infection), Weakness, Hypokalemia Disposition Disposition: Acute Care Hospital [facility] Discharge Date/Time: 09/05/22 22:09
[2022-09-05 18:46] LABS: Absolute Lymphocyte Count 0.68 X10^3/uL (0.83-4.51); Absolute Neutrophil Count 12.8 X10^3/uL (2.0-7.7); Basophil# 0.04 X10^3/uL; Basophil% 0.3 % (0-1); Eosinophil# 0.02 X10^3/uL; Eosinophils% 0.1 % (0-5); Hemoglobin 13.6 g/dL (12.0-15.0); Lymphocyte # 0.68 X10^3/ul (0.83-4.51); Lymphocyte % 4.8 % (19-41); Mean Corp Hgb Conc 32.4 g/dL (32-36); Mean Corpuscular Volume 89.6 fL (81-99); Mean Platelet Vol. 11.3 fl (6.2-12.0); Monocyte# 0.67 X10^3/uL; Monocyte% 4.7 % (0-10); NRBC Flagged by Analyzer 0 % (0-5); Neutrophil # 12.77 X10^3/uL (2.7-7.7); Neutrophil % 89.3 % (47-70); Platelet Count 370 K/mm3 (150-450); RBC Distribution Width CV 15.5 % (11.6-14.6); RBC Distribution Width SD 50.6 fl (35.1-43.9); Red Blood Count 4.69 M/mm3 (4.2-5.4); White Blood Count 14.3 K/mm3 (4.4-11.0)
[2022-09-05 19:03] LABS: Lactic Acid 1.4 mmol/L (0.4-1.9)
[2022-09-05 19:04] LABS: International Normalized Ratio 0.9; Prothrombin Time (Protime)PT. 12.1 SECONDS (11.7-14.9)
[2022-09-05 19:05] LABS: Partial Thromboplast Time 28.3 Seconds (24.1-36.2)
--- NOTE | 2022-09-05 19:08 | RAD_ITS ---
STUDY: X-RAY CHEST REASON FOR EXAM: Female, 62 years old. cad TECHNIQUE: AP COMPARISON: 06/12/2022 FINDINGS: The lungs are clear and expanded. There is no demonstrated pleural abnormality. Normal size heart. Normal mediastinum and richar. Normal visualized pulmonary arteries. Normal visualized aortic arch and descending thoracic aorta. Normal visualized thoracic spine. Normal visualized ribs, clavicles, and shoulders. There is no demonstrated abnormality of the visualized soft tissue structures of the upper abdomen. RAD/Chest 1 View (Portable) IMPRESSION: No acute cardiopulmonary process. Electronically Signed: Julius Lechuga (Brooks), at 19:19 EDT ,
[2022-09-05 19:10] LABS: ALB/GLOB Ratio 0.6 RATIO (0.9-2.4); AST(SGOT) 10 U/L (15-37); Alanine Aminotransfer ALT/SGPT < 6 U/L (13-56); Albumin, Serum 2.4 g/dL (3.2-5.0); Alkaline Phosphatase 102 U/L (45-117); Anion Gap 17 (5-15); BUN 25 mg/dL (7-18); BUN/Creat Ratio 17.2 RATIO (10-20); Calcium,Total 8.1 mg/dL (8.5-10.1); Chloride 94 mmol/L (98-107); Creatinine, Serum 1.45 mg/dL (0.55-1.02); EST Glomerular Filtration Rate 39 mL/min (>60); Est Glom Filt Rate - Afr Amer 47 mL/min (>60); Estimated Creatinine Clearance 57.32 ml/min; Globulin 4.2 g/dL (2.2-4.2); Glucose 171 mg/dL (74-106); Potassium 1.5 mmol/L (3.5-5.1); Protein, Total 6.6 g/dL (6.4-8.2); Sodium Level 130 mmol/L (136-145)
[2022-09-05 19:15] VITALS: BP 90/51; PULSE 85; RESP 17; TEMP 37.1; O2SAT 100
[2022-09-05 19:26] LABS: Magnesium 1.8 mg/dL (1.6-2.6)
[2022-09-05] MEDS: Potassium Chloride 10mEq/100mL 10 MEQ/100 ML IV.SOLN. 100 MEQ IV BOLUS ×3 (19:39→22:40)
[2022-09-05 19:42] LABS: Bacteria 0 SEEN /hpf (None Seen); Mucous, Urine 0 SEEN /hpf (<or=2+); Red Blood Cells-Urine 0 SEEN /hpf (0-5); Squamous Epithelial Cells - UA 0 SEEN /hpf (5-10)
[2022-09-05 19:43] LABS: Color, Urine Yellow (Yellow); Glucose, Dipstick Normal (Normal); Ketone-Dipstick 15 mg/dl (Negative); Leukocyte Esterase-Dipstick 500 /ul (Negative); Nitrite-Dipstick Positive (Negative); Occult Blood-Urine 250 /ul (Negative); Protein-Dipstick 100 mg/dl (Negative); Urine Clarity Cloudy (Clear); Urine Urobilinogen Normal (Normal); Urine pH 6.5 (5.0 - 8.0)
[2022-09-05 19:44] LABS: Urine Bilirubin Dipstick 1 mg/dL (Negative)
--- NOTE | 2022-09-05 19:45 | ED.RN ---
Dr. Olivas notified that pt is sepsis alert/fluid resusitation- order to have another liter of normal saline as maintenance to run with IV potassium.
[2022-09-05 19:52] LABS: White Blood Cells >100 SEEN /hpf (0-5)
[2022-09-05 20:15] LABS: Potassium 1.1 mmol/L (3.5-5.1)
--- NOTE | 2022-09-05 20:15 | ED.RN ---
lab critical potassium 1.2 doctor updated.
[2022-09-05] MEDS: Potassium Chloride Oral Tablet 20 MEQ 40 MEQ PO (21:22)
--- NOTE | 2022-09-05 21:30 | HP.PCM.HOS_ITS ---
HPI - General General Date of Admission: 09/05/22 Date of Service: 09/05/22 Chief Complaint: Weakness HPI Narrative MARIA D SMITH, is a 62 F with a significant history of multiple sclerosis; bedbound and decubitus ulcer who present to the emergency department with 3 to 4 days of progressive worsening weakness. Associated with her symptoms is nausea, and diarrhea. Further patient reports feeling dehydrated. She reported feeling dehydrated as being lethargic and listless. Report that she is unable to eat or drink secondary to dysphagia. Patient was at the hospital recently because of decubitus ulcer which was infected. She has a chronic Valenzuela. At the emergency department her urine looked grossly untidy. Her Valenzuela catheter was exchanged. [facility] Medical History Acute on chronic urinary retention Anxiety Bedbound Bilateral knee pain delivery delivered Current use of insulin Depression Diabetes Family history of MS (multiple sclerosis) Fatigue History of multiple sclerosis Hoarseness Kidney stones Lymphedema MDRO (multiple drug resistant organisms) resistance Morbid obesity Multiple sclerosis Muscle spasm Neurogenic bladder Polyneuropathy Type II diabetes mellitus Vitamin A deficiency Home Medications glimepiride 4 mg tablet 4 mg PO BID DM 12/21/19 [History Last Taken 12/02/21] levothyroxine 50 mcg tablet (Synthroid) 50 mcg PO DAILY thyroid 12/21/19 [History Last Taken 12/02/21] duloxetine 60 mg capsule,delayed release 60 mg PO BID unsure #180 caps 06/30/21 [Rx Last Taken 12/02/21] atorvastatin 80 mg tablet 80 mg PO DAILY cholesterol 12/03/21 [History Last Taken 12/02/21] esomeprazole magnesium 40 mg capsule,delayed release 40 mg PO DAILY stomach 12/03/21 [History Last Taken 12/02/21] furosemide 40 mg tablet 80 mg PO BREAKFAST fluid 12/03/21 [History Last Taken 12/02/21] insulin degludec 200 unit/mL (3 mL) subcutaneous pen (Tresiba FlexTouch U-200 insulin) 50 unit subcut QHS dm 12/03/21 [History Last Taken 12/02/21] metformin 1,000 mg tablet 1,000 mg PO BID DM 12/03/21 [History Last Taken 12/02/21] oxycodone-acetaminophen 5 mg-325 mg tablet 1 tab PO TID PRN MS 12/03/21 [History Last Taken 12/03/21] pregabalin 75 mg capsule 75 mg PO BID pain 12/03/21 [History Last Taken 12/02/21] semaglutide 1 mg/dose (4 mg/3 mL) subcutaneous pen injector (Ozempic) 1 mg subcut QWEEK dm 12/03/21 [History Last Taken 08/29/22] buspirone 5 mg tablet 5 mg PO BID pt unsure #60 tabs 02/04/22 [Rx Last Taken Unknown] cholecalciferol (vitamin D3) 25 mcg (1,000 unit) tablet (Vitamin D3) 25 mcg PO BID supplement 02/04/22 [History Last Taken Unknown] ondansetron 4 mg disintegrating tablet 4 mg PO Q4H PRN PRN Nausea #10 tabs 06/09/22 [Rx Last Taken Unknown] baclofen 10 mg tablet 10 mg PO Q6H PRN PRN Muscle Spasm 06/12/22 [History Last Taken Unknown] midodrine 10 mg tablet 10 mg PO BID Check with primary doctor 08/11/22 [History Last Taken Unknown] cefdinir 300 mg capsule 300 mg PO BID unknown 10 days #20 caps 08/12/22 [Rx Last Taken Unknown] linezolid 600 mg tablet 600 mg PO BID unknown #14 tabs 08/12/22 [Rx Last Taken Unknown] metronidazole 500 mg tablet 500 mg PO Q8H unknown 7 days #21 tabs 08/12/22 [Rx Last Taken Unknown] Allergy/AdvReac Type Severity Reaction Status Date / Time ampicillin [From Unasyn] Allergy Severe Rash Verified 09/05/22 18:44 sulbactam [From Unasyn] Allergy Severe Rash Verified 09/05/22 18:44 ciprofloxacin [From Cipro] Allergy Hives Verified 09/05/22 18:44 ciprofloxacin HCl Allergy Hives Verified 09/05/22 18:44 [From Cipro] clindamycin HCl Allergy Hives Verified 09/05/22 18:44 [From Cleocin] clindamycin palmitate HCl Allergy Hives Verified 09/05/22 18:44 [From Cleocin] clindamycin phosphate Allergy Hives Verified 09/05/22 18:44 [From Cleocin] morphine Allergy Hives Verified 09/05/22 18:44 sulfamethoxazole Allergy Hives Verified 09/05/22 18:44 [From Bactrim] trimethoprim [From Bactrim] Allergy Hives Verified 09/05/22 18:44 hydromorphone HCl AdvReac messes Verified 09/05/22 18:44 [From Dilaudid] with my brain Family History Unknown Multiple sclerosis 1st cousin Father Cancer plan examiner, black lung, Lung CA. Mother Heart disease Diabetes Heart failure Surgical History H/O hernia repair History of cholecystectomy Social History household members: spouse Smoking Status: Never smoker alcohol intake: never substance use type: does not use ROS ROS Narrative Pertinent positives and pertinent negatives as noted in HPI. All other systems were reviewed and are negative Vital Signs Vital Signs Vital Signs: 09/05/22 18:07 09/05/22 18:19 09/05/22 18:35 Temperature 97.5 F L Temperature Source Oral Pulse Rate 89 Respiratory Rate 18 Respiratory Pattern Irregular Blood Pressure 90/51 L Blood Pressure Mean 64 Pulse Ox 100 Oxygen Delivery Method Room Air Room Air 09/05/22 19:15 Temperature 98.7 F Temperature Source Core Pulse Rate 85 Respiratory Rate 17 Respiratory Pattern Blood Pressure 90/51 L Blood Pressure Mean 64 Pulse Ox 100 Oxygen Delivery Method Room Air Weight Weight: 87.997 kg Body Mass Index (BMI) 40.5 Physical Exam Narrative Physical exam: General: Well-nourished, well-developed. Head: Normocephalic, atraumatic, no tenderness Eyes: Vision is grossly intact. EOMI ENT, no trauma, dry mucous membranes, no rhinorrhea Neck: Nontender, No thyromegaly. CVS: Regular rate and rhythm. S1-S2 present. No murmur, gallop or rub. Respiratory : clear to auscultation bilaterally, chest wall nontender Abdomen: Soft, nontender, nondistended, normal bowel sounds, no masses : Deferred Back: Nontender, no CVA tenderness. Extremities: Nontender full range of motion, no trauma Skin: Excoriation on sacrococcygeal area. Tunneled ulcer at right gluteal area. Neuro: Alert, oriented, cranial nerves II through XII grossly intact. Psychiatry: Normal mood. Normal affect. Not depressed. Not anxious. Results Lab / Micro Data 09/06/22 05:55 09/06/22 05:55 Labs: Laboratory Results - last 24 hr 09/05/22 18:30: WBC 14.3 H, RBC 4.69, Hgb 13.6, Hct 42.0, MCV 89.6, MCH 29.0, MCHC 32.4, RDW Std Deviation 50.6 H, RDW Coeff of Mele 15.5 H, Plt Count 370, MPV 11.3, Immature Gran % (Auto) 0.800, Neut % (Auto) 89.3 H, Lymph % (Auto) 4.8 L, [place] % (Auto) 4.7, Eos % (Auto) 0.1, Baso % (Auto) 0.3, Absolute Neuts (auto) 12.8 H, Absolute Lymphs (auto) 0.68 L, Nucleated RBC % 0, Sodium 130 L, Potassium 1.5 L*, Chloride 94 L, Carbon Dioxide 19.0 L, Anion Gap 17 H, BUN 25 H , Creatinine 1.45 H, Estim Creat Clear Calc 57.32, Est GFR (MDRD) Af Amer 47 L, Est GFR (MDRD) Non-Af 39 L, BUN/Creatinine Ratio 17.2, Glucose 171 H, Lactic Acid 1.4, Calcium 8.1 L, Magnesium 1.8, Total Bilirubin 0.50, AST 10 L, ALT < 6 L, Alkaline Phosphatase 102, Total Protein 6.6, Albumin 2.4 L, Globulin 4.2, Albumin/Globulin Ratio 0.6 L 09/05/22 18:50: PT 12.1, INR 0.9, APTT 28.3 09/05/22 19:30: Potassium 1.1 L* 09/05/22 19:37: Urine Color Yellow, Urine Clarity Cloudy, Urine pH 6.5, Ur Specific [place] 1.010, Urine Protein 100 H, Urine Glucose (UA) Normal, Urine Ketones 15 H, Urine Occult Blood 250 H, Urine Nitrite Positive H, Urine Bilirubin 1 H, Urine Urobilinogen Normal, Ur Leukocyte Esterase 500 H, Urine RBC 0 SEEN, Urine WBC >100 SEEN, Ur Squamous Epith Cells 0 SEEN, Urine Bacteria 0 SEEN, Urine Mucus 0 SEEN Radiology Impression Chest X-Ray 09/05/22 19:08 IMPRESSION: No acute cardiopulmonary process. Electronically Signed: Julius Lechuga (Brooks), at 19:19 EDT , Assessment & Plan Assessment/Plan (1) Hypokalemia: (2) UTI (urinary tract infection): QUALIFIERS: Urinary tract infection type: catheter-associated UTI Indwelling urinary catheter type: indwelling urethral catheter Encounter type: initial encounter Qualified Code(s): T83.511A - Infection and inflammatory reaction due to indwelling urethral catheter, initial encounter; N39.0 - Urinary tract infection, site not specified (3) Weakness: PLAN: Plan Hypokalemia Potassium of 1.5 on presentation. IV and p.o. potassium given. Check magnesium. Trend BMP. Generalized weakness PT OT to work with patient. Case management consult. UTI with indwelling Valenzuela contributing Review of ED labs showed positive urine nitrite; urine leukocyte esterase; pyuria voided 100. Urine culture on 08/21/2022 showed Pseudomonas. Cefepime ordered. Diabetes Mellitus: Blood glucose stable de-escalate home basal insulin. Glimepiride continued. Accu-Chek with correction scale insulin ordered DVT prophylaxis: Subcutaneous Lovenox ordered. Time spent in the patient's overall evaluation,decision-making process, review of diagnostic data, adjustment of management, discussion with other providers, nursing nursing and ancillary staff involved in patient's care documentation, 58 minutes. Charges/Coding Visit Charges Inpatient E&M: 53100 Init Hosp L3
[2022-09-05] MEDS: 0.9% Normal Saline 1,000 ML 150 ML IV (21:54)
[2022-09-05 21:56] VITALS: BP 99/47; PULSE 84; PULSE 90; RESP 20; RESP 24; TEMP 36.6; O2SAT 100
[2022-09-05 22:33] VITALS: BMI 38.2
[2022-09-05 22:36] VITALS: BP 116/65; PULSE 86; RESP 18; TEMP 36.3; O2SAT 99
[2022-09-06] MEDS: Potassium Chloride 10mEq/100mL 10 MEQ/100 ML IV.SOLN. 50 MEQ IV BOLUS (00:35)
[2022-09-06] MEDS: MELATONIN 3 MG TABLET PO ×2 (02:32→21:51)
[2022-09-06] MEDS: Acetaminophen 325 MG Tablet 650 MG PO ×3 (02:32→21:51)
[2022-09-06 02:38] VITALS: BP 92/58; PULSE 89; RESP 18; TEMP 36.1; O2SAT 95
[2022-09-06 06:34] LABS: Absolute Lymphocyte Count 0.63 X10^3/uL (0.83-4.51); Absolute Neutrophil Count 12.1 X10^3/uL (2.0-7.7); Basophil# 0.05 X10^3/uL; Basophil% 0.4 % (0-1); Eosinophil# 0.02 X10^3/uL; Eosinophils% 0.1 % (0-5); Hematocrit 35.1 % (37-47); Hemoglobin 11.7 g/dL (12.0-15.0); Lymphocyte # 0.63 X10^3/ul (0.83-4.51); Lymphocyte % 4.6 % (19-41); Mean Corp Hgb Conc 33.3 g/dL (32-36); Mean Corpuscular Volume 86.9 fL (81-99); Mean Platelet Vol. 11.1 fl (6.2-12.0); Monocyte# 0.79 X10^3/uL; Monocyte% 5.7 % (0-10); NRBC Flagged by Analyzer 0 % (0-5); Neutrophil # 12.14 X10^3/uL (2.7-7.7); Neutrophil % 88.4 % (47-70); Platelet Count 361 K/mm3 (150-450); RBC Distribution Width CV 15.3 % (11.6-14.6); Red Blood Count 4.04 M/mm3 (4.2-5.4); White Blood Count 13.7 K/mm3 (4.4-11.0)
[2022-09-06] MEDS: Insulin Lispro 100 UNIT/ML INSULN.PEN SC ×2 (06:57→11:53)
[2022-09-06] MEDS: Levothyroxine 50 MCG Tablet PO (06:59)
[2022-09-06 07:19] LABS: Bedside Glucose 150 mg/dL (74-106)
[2022-09-06 07:49] LABS: ALB/GLOB Ratio 0.6 RATIO (0.9-2.4); AST(SGOT) 6 U/L (15-37); Alanine Aminotransfer ALT/SGPT < 6 U/L (13-56); Albumin, Serum 2.1 g/dL (3.2-5.0); Alkaline Phosphatase 99 U/L (45-117); Anion Gap 15 (5-15); BUN 27 mg/dL (7-18); BUN/Creat Ratio 19.6 RATIO (10-20); Calcium,Total 7.6 mg/dL (8.5-10.1); Chloride 99 mmol/L (98-107); Creatinine, Serum 1.38 mg/dL (0.55-1.02); EST Glomerular Filtration Rate 41 mL/min (>60); Est Glom Filt Rate - Afr Amer 50 mL/min (>60); Estimated Creatinine Clearance 56.87 ml/min; Globulin 3.8 g/dL (2.2-4.2); Glucose 134 mg/dL (74-106); Potassium 1.4 mmol/L (3.5-5.1); Protein, Total 5.9 g/dL (6.4-8.2); Sodium Level 133 mmol/L (136-145)
[2022-09-06 08:40] VITALS: BP 93/57; PULSE 87; RESP 16; TEMP 36.9; O2SAT 100
[2022-09-06 09:47] LABS: Magnesium 1.6 mg/dL (1.6-2.6)
[2022-09-06 09:52] VITALS: BP 93/57; PULSE 92; RESP 16; TEMP 36.9; O2SAT 100
[2022-09-06] MEDS: Potassium Chloride 10mEq/100mL 10 MEQ/100 ML IV.SOLN. 100 MEQ IV BOLUS ×8 (09:57→21:14)
[2022-09-06] MEDS: Glimepiride 4 MG Tablet PO ×2 (10:01→17:40)
[2022-09-06] MEDS: Potassium Chloride Oral Tablet 20 MEQ 40 MEQ PO (10:01)
[2022-09-06] MEDS: Enoxaparin 40 MG/0.4 ML Syringe SC (10:02)
[2022-09-06] MEDS: DULoxetine Hcl 60 MG Capsule PO ×2 (10:02→21:50)
[2022-09-06] MEDS: busPIRone 5 MG Tablet PO ×2 (10:02→21:50)
[2022-09-06] MEDS: Cholecalciferol (VIT D3) 25 MCG TABLET (1,000 UNITS) PO ×2 (10:03→21:50)
[2022-09-06] MEDS: Pantoprazole Sodium 40 MG Tablet PO (10:03)
[2022-09-06] MEDS: Midodrine HCl 5 MG Tablet 10 MG PO ×2 (10:03→17:40)
--- NOTE | 2022-09-06 10:23 | PN.HOSP_ITS ---
Reason for Visit Reason for Visit: Diagnoses Hypokalemia (09/05/22) Urinary tract infection, site not specified (09/05/22) Weakness (09/05/22) Infection and inflammatory reaction due to indwelling urethral catheter, initial encounter (09/05/22) Subjective Subjective Patient was seen and examined today, she was admitted last night for weakness an d found to have acute cystitis with an extremely low potassium. I talked briefly with nephrology about her care today, they are consulted to see her and nephrology requested a urinary potassium. Patient will be given IV K riders today. Patient's white blood cell count today was 13.7, she remains on meropenem for cystitis-it appears she has a past history of Pseudomonas in her urine in July 2022. Objective Data Objective Data Vital Signs: Vital Signs Temp Pulse Resp BP Pulse Ox O2 Del Method 98.4 F 92 16 93/57 L 100 Room Air 09/06/22 09:52 09/06/22 09:52 09/06/22 09:52 09/06/22 09:52 09/06/22 09:52 09/06/22 09:52 Oxygen Delivery Method Room Air Weight: 83.1 kg Body Mass Index (BMI) 38.2 Intake & Output: Intake and Output for Last 24 Hours 09/04/22 09/05/22 09/06/22 23:59 23:59 23:59 Intake Total 4031.17 / 4031.17 183.33 / 183.33 Balance 4031.17 / 4031.17 183.33 / 183.33 Lab / Micro Data 09/06/22 05:55 09/06/22 05:55 Labs: Laboratory Results - last 24 hr 09/05/22 18:30: WBC 14.3 H, RBC 4.69, Hgb 13.6, Hct 42.0, MCV 89.6, MCH 29.0, MCHC 32.4, RDW Std Deviation 50.6 H, RDW Coeff of Mele 15.5 H, Plt Count 370, MPV 11.3, Immature Gran % (Auto) 0.800, Neut % (Auto) 89.3 H, Lymph % (Auto) 4.8 L, [place] % (Auto) 4.7, Eos % (Auto) 0.1, Baso % (Auto) 0.3, Absolute Neuts (auto) 12.8 H, Absolute Lymphs (auto) 0.68 L, Nucleated RBC % 0, Sodium 130 L, Potassium 1.5 L*, Chloride 94 L, Carbon Dioxide 19.0 L, Anion Gap 17 H, BUN 25 H , Creatinine 1.45 H, Estim Creat Clear Calc 57.32, Est GFR (MDRD) Af Amer 47 L, Est GFR (MDRD) Non-Af 39 L, BUN/Creatinine Ratio 17.2, Glucose 171 H, Lactic Acid 1.4, Calcium 8.1 L, Magnesium 1.8, Total Bilirubin 0.50, AST 10 L, ALT < 6 L, Alkaline Phosphatase 102, Total Protein 6.6, Albumin 2.4 L, Globulin 4.2, Albumin/Globulin Ratio 0.6 L 09/05/22 18:50: PT 12.1, INR 0.9, APTT 28.3 09/05/22 19:30: Potassium 1.1 L* 09/05/22 19:37: Urine Color Yellow, Urine Clarity Cloudy, Urine pH 6.5, Ur Specific [place] 1.010, Urine Protein 100 H, Urine Glucose (UA) Normal, Urine Ketones 15 H, Urine Occult Blood 250 H, Urine Nitrite Positive H, Urine Bilirubin 1 H, Urine Urobilinogen Normal, Ur Leukocyte Esterase 500 H, Urine RBC 0 SEEN, Urine WBC >100 SEEN, Ur Squamous Epith Cells 0 SEEN, Urine Bacteria 0 SEEN, Urine Mucus 0 SEEN 09/06/22 05:55: WBC 13.7 H, RBC 4.04 L, Hgb 11.7 L, Hct 35.1 L, MCV 86.9, MCH 29.0, MCHC 33.3, RDW Std Deviation 49.0 H, RDW Coeff of Mele 15.3 H, Plt Count 361, MPV 11.1, Immature Gran % (Auto) 0.800, Neut % (Auto) 88.4 H, Lymph % (Auto) 4.6 L, [place] % (Auto) 5.7, Eos % (Auto) 0.1, Baso % (Auto) 0.4, Absolute Neuts (auto) 12.1 H, Absolute Lymphs (auto) 0.63 L, Nucleated RBC % 0, Sodium 133 L, Potassium 1.4 L*, Chloride 99, Carbon Dioxide 19.0 L, Anion Gap 15, BUN 27 H, Creatinine 1.38 H, Estim Creat Clear Calc 56.87, Est GFR (MDRD) Af Amer 50 L, Est GFR (MDRD) Non-Af 41 L, BUN/Creatinine Ratio 19.6, Glucose 134 H, Calcium 7.6 L, Magnesium 1.6, Total Bilirubin 0.40, AST 6 L, ALT < 6 L, Alkaline Phosphatase 99, Total Protein 5.9 L, Albumin 2.1 L, Globulin 3.8, Albumin/Globulin Ratio 0.6 L 09/06/22 06:54: POC Glucose 150 H 09/06/22 09:20: Urine Potassium 2.0 Radiography Diagnostic Testing: Radiology Impression Chest X-Ray 09/05/22 19:08 IMPRESSION: No acute cardiopulmonary process. Electronically Signed: Julius Lechuga (Brooks), at 19:19 EDT Reading Location ID and State: [facility] / [place] , Service support , Physical Exam Const alert and no apparent distress Constitutional Narrative: Patient appears older than her stated age General Appearance: cooperative, well kempt and well developed Orientation / Consciousness: awake, oriented to person and oriented to place HEENT normocephalic, head/scalp atraumatic and moist oral mucous membranes Eyes PERRL, EOMs intact bilaterally and conjunctivae normal Neck supple, no JVD, thyroid normal and no carotid bruits General: trachea midline Resp normal respiratory effort, no retractions, no use of accessory muscles and clear to auscultation bilaterally Auscultation: Negative for rales, rhonchi or wheezes Cardio regular rate, regular rhythm, S1 normal heart sound, S2 normal heart sound, no murmurs, no rub and no gallops GI normal to inspection, nondistended, normoactive bowel sounds, soft to palpation, non-tender and non-distended Extremity General Extremity: edema bilateral Skin Skin Narrative: Patient has a pressure injury approximately 2 inches in diameter in the right ischial area, it is packed with surgical dressing Neuro CN's II-XII intact bilaterally Sensorium / Orientation: awake, alert, oriented to person and oriented to place Speech: speech normal Psych affect normal Assessment & Plan Assessment/Plan (1) Hypokalemia: PLAN: Plan 1. Severe hypokalemia-patient will receive IV potassium riders, she will be seen by nephrology. Etiology of the patient's hypokalemia is unknown at this time, when she was in the hospital in July 2022 she had normal potassium. BMP will be rechecked this afternoon. #2 acute cystitis-patient is on meropenem presently, await urine culture #3 generalized debility secondary to chronic MS-complicates care, medical course, recovery, and prognosis, PT and OT are seeing patient, speech therapy seeing patient #4 pressure injury right ischial area-wound care nurse will see the patient #5 type 2 diabetes-blood sugars will be monitored, sliding scale insulin will be used as needed #6 hypothyroidism-patient is on Synthroid #7 chronic depression-patient is on Cymbalta #8 multiple sclerosis-complicates care, medical course, recovery, and prognosis Total clinical time spent by myself addressing patient's medical issues, reviewing all of her data, and collaborating with patient's care team: 35 minutes Charges/Coding Visit Charges Inpatient E&M: 98496 Subs Hosp L2
[2022-09-06] MEDS: Potassium Chloride 40 MEQ in 0.9% Normal Saline 1,000 ML 125 MEQ IV ×2 (11:47→19:57)
[2022-09-06 12:27] LABS: Bedside Glucose 171 mg/dL (74-106)
[2022-09-06 14:40] VITALS: BP 103/64; PULSE 82; RESP 16; TEMP 37.1; O2SAT 100
[2022-09-06 16:42] LABS: Anion Gap 12 (5-15); BUN 28 mg/dL (7-18); BUN/Creat Ratio 18.2 RATIO (10-20); Calcium,Total 7.6 mg/dL (8.5-10.1); Chloride 101 mmol/L (98-107); Creatinine, Serum 1.54 mg/dL (0.55-1.02); EST Glomerular Filtration Rate 37 mL/min (>60); Est Glom Filt Rate - Afr Amer 44 mL/min (>60); Estimated Creatinine Clearance 50.96 ml/min; Glucose 130 mg/dL (74-106); Potassium 1.6 mmol/L (3.5-5.1); Sodium Level 135 mmol/L (136-145)
--- NOTE | 2022-09-06 17:13 | PN.SENS_ITS ---
Subjective Subjective This is plan of care for the patient. 62 years old bedridden with multiple sclerosis has been admitted with life-threatening hypokalemia. Her potassium on admission was 1.0, started to replace and it is much better now to 1.6. Fortunately there is no arrhythmias. Urine sodium is very low indicative that is not kidneys to blame. I suspect she has been significantly depleted with large dose of loop diuretic and had poor oral potassium intake. I think she should get better with supplementation. We will continue monitoring Objective Data Objective Data Vital Signs: Vital Signs Temp Pulse Resp BP Pulse Ox O2 Del Method 98.4 F 92 16 93/57 L 100 Room Air 09/06/22 09:52 09/06/22 09:52 09/06/22 09:52 09/06/22 09:52 09/06/22 09:52 09/06/22 14:00 Oxygen Delivery Method Room Air Weight: 83.1 kg Body Mass Index (BMI) 38.2 Intake & Output: Intake and Output for Last 24 Hours 09/04/22 09/05/22 09/06/22 23:59 23:59 23:59 Intake Total 4031.17 / 4031.17 1103.33 / 1103.33 Output Total 350 / 350 Balance 4031.17 / 4031.17 753.33 / 753.33 Lab / Micro Data Attestation: I reviewed the patient's lab results. 09/06/22 05:55 09/06/22 16:04 Labs: Laboratory Results - last 24 hr 09/05/22 18:30: WBC 14.3 H, RBC 4.69, Hgb 13.6, Hct 42.0, MCV 89.6, MCH 29.0, MCHC 32.4, RDW Std Deviation 50.6 H, RDW Coeff of Mele 15.5 H, Plt Count 370, MPV 11.3, Immature Gran % (Auto) 0.800, Neut % (Auto) 89.3 H, Lymph % (Auto) 4.8 L, [place] % (Auto) 4.7, Eos % (Auto) 0.1, Baso % (Auto) 0.3, Absolute Neuts (auto) 12.8 H, Absolute Lymphs (auto) 0.68 L, Nucleated RBC % 0, Sodium 130 L, Potassium 1.5 L*, Chloride 94 L, Carbon Dioxide 19.0 L, Anion Gap 17 H, BUN 25 H , Creatinine 1.45 H, Estim Creat Clear Calc 57.32, Est GFR (MDRD) Af Amer 47 L, Est GFR (MDRD) Non-Af 39 L, BUN/Creatinine Ratio 17.2, Glucose 171 H, Lactic Acid 1.4, Calcium 8.1 L, Magnesium 1.8, Total Bilirubin 0.50, AST 10 L, ALT < 6 L, Alkaline Phosphatase 102, Total Protein 6.6, Albumin 2.4 L, Globulin 4.2, Albumin/Globulin Ratio 0.6 L 09/05/22 18:50: PT 12.1, INR 0.9, APTT 28.3 09/05/22 19:30: Potassium 1.1 L* 09/05/22 19:37: Urine Color Yellow, Urine Clarity Cloudy, Urine pH 6.5, Ur Specific [place] 1.010, Urine Protein 100 H, Urine Glucose (UA) Normal, Urine Ketones 15 H, Urine Occult Blood 250 H, Urine Nitrite Positive H, Urine Bilirubin 1 H, Urine Urobilinogen Normal, Ur Leukocyte Esterase 500 H, Urine RBC 0 SEEN, Urine WBC >100 SEEN, Ur Squamous Epith Cells 0 SEEN, Urine Bacteria 0 SEEN, Urine Mucus 0 SEEN 09/06/22 05:55: WBC 13.7 H, RBC 4.04 L, Hgb 11.7 L, Hct 35.1 L, MCV 86.9, MCH 29.0, MCHC 33.3, RDW Std Deviation 49.0 H, RDW Coeff of Mele 15.3 H, Plt Count 361, MPV 11.1, Immature Gran % (Auto) 0.800, Neut % (Auto) 88.4 H, Lymph % (Auto) 4.6 L, [place] % (Auto) 5.7, Eos % (Auto) 0.1, Baso % (Auto) 0.4, Absolute Neuts (auto) 12.1 H, Absolute Lymphs (auto) 0.63 L, Nucleated RBC % 0, Sodium 133 L, Potassium 1.4 L*, Chloride 99, Carbon Dioxide 19.0 L, Anion Gap 15, BUN 27 H, Creatinine 1.38 H, Estim Creat Clear Calc 56.87, Est GFR (MDRD) Af Amer 50 L, Est GFR (MDRD) Non-Af 41 L, BUN/Creatinine Ratio 19.6, Glucose 134 H, Calcium 7.6 L, Magnesium 1.6, Total Bilirubin 0.40, AST 6 L, ALT < 6 L, Alkaline Phosphatase 99, Total Protein 5.9 L, Albumin 2.1 L, Globulin 3.8, Albumin/Globulin Ratio 0.6 L 09/06/22 06:54: POC Glucose 150 H 09/06/22 09:20: Urine Potassium 2.0 09/06/22 11:52: POC Glucose 171 H 09/06/22 16:04: Sodium 135 L, Potassium 1.6 L*, Chloride 101, Carbon Dioxide 22.0, Anion Gap 12, BUN 28 H, Creatinine 1.54 H, Estim Creat Clear Calc 50.96, Est GFR (MDRD) Af Amer 44 L, Est GFR (MDRD) Non-Af 37 L, BUN/Creatinine Ratio 18.2, Glucose 130 H, Calcium 7.6 L Radiography Diagnostic Testing: Radiology Impression Chest X-Ray 09/05/22 19:08 IMPRESSION: No acute cardiopulmonary process. Electronically Signed: Julius Lechuga (Brooks), at 19:19 EDT ,
[2022-09-06 18:04] LABS: Bedside Glucose 114 mg/dL (74-106)
[2022-09-06 20:15] VITALS: BP 91/51; PULSE 89; RESP 16; TEMP 36.8; O2SAT 100
[2022-09-06 22:24] LABS: Bedside Glucose 77 mg/dL (74-106)
[2022-09-06 23:57] LABS: Hematocrit 34.1 % (37-47); Hemoglobin 11.7 g/dL (12.0-15.0)
[2022-09-07 00:07] LABS: Anion Gap 9 (5-15); BUN 28 mg/dL (7-18); BUN/Creat Ratio 18.3 RATIO (10-20); Calcium,Total 7.7 mg/dL (8.5-10.1); Chloride 103 mmol/L (98-107); Creatinine, Serum 1.53 mg/dL (0.55-1.02); EST Glomerular Filtration Rate 37 mL/min (>60); Est Glom Filt Rate - Afr Amer 45 mL/min (>60); Glucose 74 mg/dL (74-106); Sodium Level 135 mmol/L (136-145)
[2022-09-07] MEDS: Potassium Chloride 10mEq/100mL 10 MEQ/100 ML IV.SOLN. 100 MEQ IV BOLUS ×7 (01:06→16:27)
[2022-09-07 02:15] VITALS: BP 115/67; PULSE 77; RESP 16; TEMP 36.8; O2SAT 98
[2022-09-07] MEDS: Baclofen 10 MG Tablet PO (04:25)
[2022-09-07] MEDS: Acetaminophen 325 MG Tablet 650 MG PO ×2 (04:25→11:00)
[2022-09-07] MEDS: Potassium Chloride 40 MEQ in 0.9% Normal Saline 1,000 ML 125 MEQ IV ×2 (05:34→16:27)
[2022-09-07] MEDS: Levothyroxine 50 MCG Tablet PO (06:33)
[2022-09-07 06:50] LABS: Absolute Lymphocyte Count 0.76 X10^3/uL (0.83-4.51); Absolute Neutrophil Count 8.8 X10^3/uL (2.0-7.7); Basophil# 0.03 X10^3/uL; Basophil% 0.3 % (0-1); Eosinophil# 0.03 X10^3/uL; Eosinophils% 0.3 % (0-5); Hematocrit 32.6 % (37-47); Hemoglobin 10.9 g/dL (12.0-15.0); Lymphocyte # 0.76 X10^3/ul (0.83-4.51); Lymphocyte % 7.5 % (19-41); Mean Corp Hgb Conc 33.4 g/dL (32-36); Mean Corpuscular Hgb 28.8 pg (27.0-32.0); Mean Platelet Vol. 10.8 fl (6.2-12.0); Monocyte# 0.45 X10^3/uL; Monocyte% 4.4 % (0-10); NRBC Flagged by Analyzer 0 % (0-5); Neutrophil # 8.79 X10^3/uL (2.7-7.7); Neutrophil % 86.5 % (47-70); Platelet Count 351 K/mm3 (150-450); RBC Distribution Width CV 15.5 % (11.6-14.6); RBC Distribution Width SD 49.1 fl (35.1-43.9); Red Blood Count 3.79 M/mm3 (4.2-5.4); White Blood Count 10.2 K/mm3 (4.4-11.0)
[2022-09-07] MEDS: Dextrose 50%-Water 25 GM/50 ML DISP.SYRIN IV ×3 (06:54→20:12)
--- NOTE | 2022-09-07 07:09 | NURSING ---
pts bs was 40 , attempted to give cookies and apple juice and she could not eat it, amp of d50 given
[2022-09-07 07:16] LABS: Bedside Glucose 40 mg/dL (74-106)
[2022-09-07 07:30] LABS: Anion Gap 8 (5-15); BUN 28 mg/dL (7-18); BUN/Creat Ratio 20.9 RATIO (10-20); Calcium,Total 7.4 mg/dL (8.5-10.1); Chloride 107 mmol/L (98-107); Creatinine, Serum 1.34 mg/dL (0.55-1.02); EST Glomerular Filtration Rate 43 mL/min (>60); Est Glom Filt Rate - Afr Amer 52 mL/min (>60); Estimated Creatinine Clearance 58.57 ml/min; Glucose 42 mg/dL (74-106); Potassium 2.6 mmol/L (3.5-5.1); Sodium Level 135 mmol/L (136-145)
[2022-09-07 09:18] LABS: Bedside Glucose 120 mg/dL (74-106)
[2022-09-07 10:30] VITALS: BP 92/45; PULSE 83; RESP 16; TEMP 36.4; O2SAT 98
[2022-09-07] MEDS: busPIRone 5 MG Tablet PO ×2 (11:00→22:15)
[2022-09-07] MEDS: Glimepiride 4 MG Tablet PO (11:00)
[2022-09-07] MEDS: Potassium Chloride Oral Tablet 20 MEQ 40 MEQ PO ×3 (11:00→16:41)
[2022-09-07] MEDS: Cholecalciferol (VIT D3) 25 MCG TABLET (1,000 UNITS) PO ×2 (11:00→22:17)
[2022-09-07] MEDS: DULoxetine Hcl 60 MG Capsule PO ×2 (11:00→22:15)
[2022-09-07] MEDS: Midodrine HCl 5 MG Tablet 10 MG PO ×2 (11:00→16:41)
[2022-09-07] MEDS: Menthol/Lanolin/Calamine/Znox 113 GM Tube 1 APPLIC TOPICAL ×2 (11:09→22:15)
[2022-09-07 12:27] LABS: Glucose 330 mg/dL (74-106)
[2022-09-07 12:36] LABS: Bedside Glucose 40 mg/dL (74-106)
[2022-09-07 12:36] LABS: Bedside Glucose 217 mg/dL (74-106)
[2022-09-07 13:44] VITALS: BP 97/54; PULSE 78; RESP 16; TEMP 36.4; O2SAT 97
--- NOTE | 2022-09-07 14:52 | CON.PCM.RE_ITS ---
Assessment & Plan Assessment/Plan (1) Hypokalemia: (2) Weakness: (3) Hyponatremia: PLAN: Plan This is a 62-year-old female with past medical history significant for hypertension, MS, bedbound, diabetes mellitus type 2 who presented to the emergency room with complaints of feeling unwell with associated nausea and poor oral intake. Initial lab work in the emergency room potassium 1.5, sodium 130, creatinine 1.45, glucose 171, urine potassium 2.9. Patient did not have any arrhythmias. Patient was admitted for further evaluation and treatment. Potassium is up to 2.6 today. Sodium is 135. Creatinine 1.34. Hypokalemia quite possibly from diuresis. With supplement/replacement, potassium has slowly improved. Patient has normal baseline potassium trends; her potassium was 3.8 on August 12, 2022. Continue holding diuretic as you are and replacing potassium. Also encouraged patient to try and eat potassium rich foods. Hypovolemic hyponatremia likely from overdiuresis. Sodium was 130 on admission and today has improved to 135. Patient has normal baseline sodium trends. Serum creati nine was 1.45 on admission, peaked 1.54 and today is 1.34; fluctuations in serum creatinine likely secondary to hemodynamics. Patient has normal baseline creatinine trends. Thank you for allowing us participate in the care of Ms. Pinto, further orders forthcoming as hospitalization evolves. HPI Consult Data Date of Consult: 09/07/22 HPI Narrative HPI Narrative: MARIA D PINTO, is a 62 F past medical history significant for diabetes mellitus type 2, lymphedema, MS, bedbound who presented to the emergency room with complaints of feeling unwell and weakness. Lab work in the emergency room revealed potassium of 1.5, sodium 130, creatinine 1.45; also found to have UTI. Patient was admitted for further evaluation and treatment. Nephrology consulted for hypokalemia. Patient reports prior to presenting to the emergency room she had been feeling unwell with poor oral intake and nausea for at least 5 days. Denies any diarrhea at home but reports had had some loose stools in the hospital. Patient reports despite feeling unwell she continued to take her medications. [facility] Medical History (Updated 09/07/22 @ 14:56 by LAURA Marcos) Acute on chronic urinary retention Anxiety Bedbound Bilateral knee pain delivery delivered Current use of insulin Depression Diabetes Family history of MS (multiple sclerosis) Fatigue History of multiple sclerosis Hoarseness Hyponatremia Kidney stones Lymphedema MDRO (multiple drug resistant organisms) resistance Morbid obesity Multiple sclerosis Muscle spasm Neurogenic bladder Polyneuropathy Type II diabetes mellitus Vitamin A deficiency Home Medications glimepiride 4 mg tablet 4 mg PO BID DM 12/21/19 [History Last Taken 12/02/21] levothyroxine 50 mcg tablet (Synthroid) 50 mcg PO DAILY thyroid 12/21/19 [History Last Taken 12/02/21] duloxetine 60 mg capsule,delayed release 60 mg PO BID unsure #180 caps 06/30/21 [Rx Last Taken 12/02/21] atorvastatin 80 mg tablet 80 mg PO DAILY cholesterol 12/03/21 [History Last Taken 12/02/21] esomeprazole magnesium 40 mg capsule,delayed release 40 mg PO DAILY stomach 12/03/21 [History Last Taken 12/02/21] furosemide 40 mg tablet 80 mg PO BREAKFAST fluid 12/03/21 [History Last Taken 12/02/21] insulin degludec 200 unit/mL (3 mL) subcutaneous pen (Tresiba FlexTouch U-200 insulin) 50 unit subcut QHS dm 12/03/21 [History Last Taken 12/02/21] metformin 1,000 mg tablet 1,000 mg PO BID DM 12/03/21 [History Last Taken 12/02/21] oxycodone-acetaminophen 5 mg-325 mg tablet 1 tab PO TID PRN MS 12/03/21 [History Last Taken 12/03/21] pregabalin 75 mg capsule 75 mg PO BID pain 12/03/21 [History Last Taken 12/02/21] semaglutide 1 mg/dose (4 mg/3 mL) subcutaneous pen injector (Ozempic) 1 mg subcut QWEEK dm 12/03/21 [History Last Taken 08/29/22] buspirone 5 mg tablet 5 mg PO BID pt unsure #60 tabs 02/04/22 [Rx Last Taken Unknown] cholecalciferol (vitamin D3) 25 mcg (1,000 unit) tablet (Vitamin D3) 25 mcg PO BID supplement 02/04/22 [History Last Taken Unknown] ondansetron 4 mg disintegrating tablet 4 mg PO Q4H PRN PRN Nausea #10 tabs 06/09/22 [Rx Last Taken Unknown] baclofen 10 mg tablet 10 mg PO Q6H PRN PRN Muscle Spasm 06/12/22 [History Last Taken Unknown] midodrine 10 mg tablet 10 mg PO BID Check with primary doctor 08/11/22 [History Last Taken Unknown] cefdinir 300 mg capsule 300 mg PO BID unknown 10 days #20 caps 08/12/22 [Rx Last Taken Unknown] linezolid 600 mg tablet 600 mg PO BID unknown #14 tabs 08/12/22 [Rx Last Taken Unknown] metronidazole 500 mg tablet 500 mg PO Q8H unknown 7 days #21 tabs 08/12/22 [Rx Last Taken Unknown] Allergy/AdvReac Type Severity Reaction Status Date / Time ampicillin [From Unasyn] Allergy Severe Rash Verified 09/05/22 18:44 sulbactam [From Unasyn] Allergy Severe Rash Verified 09/05/22 18:44 ciprofloxacin [From Cipro] Allergy Hives Verified 09/05/22 18:44 ciprofloxacin HCl Allergy Hives Verified 09/05/22 18:44 [From Cipro] clindamycin HCl Allergy Hives Verified 09/05/22 18:44 [From Cleocin] clindamycin palmitate HCl Allergy Hives Verified 09/05/22 18:44 [From Cleocin] clindamycin phosphate Allergy Hives Verified 09/05/22 18:44 [From Cleocin] morphine Allergy Hives Verified 09/05/22 18:44 sulfamethoxazole Allergy Hives Verified 09/05/22 18:44 [From Bactrim] trimethoprim [From Bactrim] Allergy Hives Verified 09/05/22 18:44 hydromorphone HCl AdvReac messes Verified 09/05/22 18:44 [From Dilaudid] with my brain Family History Unknown Multiple sclerosis 1st cousin Father Cancer drift miner, black lung, Lung CA. Mother Heart disease Diabetes Heart failure Surgical History H/O hernia repair History of cholecystectomy Social History household members: spouse Smoking Status: Never smoker alcohol intake: never substance use type: does not use ROS ROS Narrative As in HPI past medical history Physical Exam Narrative Alert oriented x3, no apparent distress Lung sounds clear anteriorly and posteriorly no wheezes rhonchi rales noted S1, S2, RRR Abdomen soft, nontender, positive bowel sounds No pitting edema noted bilateral lower legs or feet Indwelling [place] with yellow urine Lab / Micro Data 09/07/22 06:30 09/07/22 11:50 Labs: Laboratory Results - last 24 hr 09/06/22 16:04: Sodium 135 L, Potassium 1.6 L*, Chloride 101, Carbon Dioxide 22.0, Anion Gap 12, BUN 28 H, Creatinine 1.54 H, Estim Creat Clear Calc 50.96, Est GFR (MDRD) Af Amer 44 L, Est GFR (MDRD) Non-Af 37 L, BUN/Creatinine Ratio 18.2, Glucose 130 H, Calcium 7.6 L 09/06/22 17:39: POC Glucose 114 H 09/06/22 21:48: POC Glucose 77 09/06/22 23:23: Hgb 11.7 L, Hct 34.1 L, Sodium 135 L, Potassium 2.0 L*, Chloride 103, Carbon Dioxide 23.0, Anion Gap 9, BUN 28 H, Creatinine 1.53 H, Estim Creat Clear Calc 51.30, Est GFR (MDRD) Af Amer 45 L, Est GFR (MDRD) Non-Af 37 L, BUN/Creatinine Ratio 18.3, Glucose 74, Calcium 7.7 L 09/07/22 06:30: WBC 10.2, RBC 3.79 L, Hgb 10.9 L, Hct 32.6 L, MCV 86.0, MCH 28.8, MCHC 33.4, RDW Std Deviation 49.1 H, RDW Coeff of Mele 15.5 H, Plt Count 351, MPV 10.8, Immature Gran % (Auto) 1.000 H, Neut % (Auto) 86.5 H, Lymph % (Auto) 7.5 L, [place] % (Auto) 4.4, Eos % (Auto) 0.3, Baso % (Auto) 0.3, Absolute Neuts (auto) 8.8 H, Absolute Lymphs (auto) 0.76 L, Nucleated RBC % 0, Sodium 135 L, Potassium 2.6 L*, Chloride 107, Carbon Dioxide 20.0 L, Anion Gap 8, BUN 28 H, Creatinine 1.34 H, Estim Creat Clear Calc 58.57, Est GFR (MDRD) Af Amer 52 L, Est GFR (MDRD) Non-Af 43 L, BUN/Creatinine Ratio 20.9 H, Glucose 42 L*, Calcium 7.4 L 09/07/22 06:42: POC Glucose 40 L* 09/07/22 07:40: POC Glucose 120 H 09/07/22 11:31: POC Glucose 40 L* 09/07/22 11:50: Glucose 330 H 09/07/22 12:13: POC Glucose 217 H Micro: Microbiology 09/06/22 19:00 Stool Enteric Bacteriology - Final 09/05/22 19:37 Urine, Clean Catch Urine Culture - Preliminary GNR Poss Pseudomonas sp 09/06/22 Unknown Stool C. difficile DNA Amplification - Final 09/06/22 Unknown Stool Stool Occult Blood (JULIANNA) - Final Occult Blood Positive
--- NOTE | 2022-09-07 14:58 | WOUNDNOTE ---
wound photo: right buttock
[2022-09-07 16:33] VITALS: BP 110/68; PULSE 86; RESP 16; TEMP 36.4; O2SAT 100
[2022-09-07 17:52] LABS: Bedside Glucose 81 mg/dL (74-106)
--- NOTE | 2022-09-07 18:16 | PN.HOSP_ITS ---
Reason for Visit Reason for Visit: Diagnoses Hypokalemia (09/05/22) Urinary tract infection, site not specified (09/05/22) Weakness (09/05/22) Infection and inflammatory reaction due to indwelling urethral catheter, initial encounter (09/05/22) Subjective Subjective Patient was seen and examined today, her potassium was still low this morning, I wrote for additional K riders, her repeat potassium tonight is pending. Objective Data Objective Data Vital Signs: Vital Signs Temp Pulse Resp BP Pulse Ox O2 Del Method 97.5 F L 86 16 110/68 100 Room Air 09/07/22 16:33 09/07/22 16:33 09/07/22 16:33 09/07/22 16:33 09/07/22 16:33 09/07/22 16:33 Oxygen Delivery Method Room Air Weight: 83.1 kg Body Mass Index (BMI) 38.2 Intake & Output: Intake and Output for Last 24 Hours 09/05/22 09/06/22 09/07/22 23:59 23:59 23:59 Intake Total 4031.17 / 4031.17 3243.33 / 3243.33 3201.67 / 3201.67 Output Total 900 / 900 600 / 600 Balance 4031.17 / 4031.17 2343.33 / 2343.33 2601.67 / 2601.67 Lab / Micro Data 09/07/22 06:30 09/07/22 11:50 Labs: Laboratory Results - last 24 hr 09/06/22 21:48: POC Glucose 77 09/06/22 23:23: Hgb 11.7 L, Hct 34.1 L, Sodium 135 L, Potassium 2.0 L*, Chloride 103, Carbon Dioxide 23.0, Anion Gap 9, BUN 28 H, Creatinine 1.53 H, Estim Creat Clear Calc 51.30, Est GFR (MDRD) Af Amer 45 L, Est GFR (MDRD) Non-Af 37 L, BUN/Creatinine Ratio 18.3, Glucose 74, Calcium 7.7 L 09/07/22 06:30: WBC 10.2, RBC 3.79 L, Hgb 10.9 L, Hct 32.6 L, MCV 86.0, MCH 28.8, MCHC 33.4, RDW Std Deviation 49.1 H, RDW Coeff of Mele 15.5 H, Plt Count 351, MPV 10.8, Immature Gran % (Auto) 1.000 H, Neut % (Auto) 86.5 H, Lymph % (Auto) 7.5 L, [place] % (Auto) 4.4, Eos % (Auto) 0.3, Baso % (Auto) 0.3, Absolute Neuts (auto) 8.8 H, Absolute Lymphs (auto) 0.76 L, Nucleated RBC % 0, Sodium 135 L, Potassium 2.6 L*, Chloride 107, Carbon Dioxide 20.0 L, Anion Gap 8, BUN 28 H, Creatinine 1.34 H, Estim Creat Clear Calc 58.57, Est GFR (MDRD) Af Amer 52 L, E st GFR (MDRD) Non-Af 43 L, BUN/Creatinine Ratio 20.9 H, Glucose 42 L*, Calcium 7.4 L 09/07/22 06:42: POC Glucose 40 L* 09/07/22 07:40: POC Glucose 120 H 09/07/22 11:31: POC Glucose 40 L* 09/07/22 11:50: Glucose 330 H 09/07/22 12:13: POC Glucose 217 H 09/07/22 16:33: POC Glucose 81 Micro: Microbiology 09/06/22 19:00 Stool Enteric Bacteriology - Final 09/05/22 19:37 Urine, Clean Catch Urine Culture - Preliminary GNR Poss Pseudomonas sp 09/06/22 Unknown Stool C. difficile DNA Amplification - Final 09/06/22 Unknown Stool Stool Occult Blood (JULIANNA) - Final Occult Blood Positive Physical Exam Narrative alert and no apparent distress Constitutional Narrative: Patient appears older than her stated age General Appearance: cooperative, well kempt and well developed Orientation / Consciousness: awake, oriented to person and oriented to place HEENT normocephalic, head/scalp atraumatic and moist oral mucous membranes Eyes PERRL, EOMs intact bilaterally and conjunctivae normal Neck supple, no JVD, thyroid normal and no carotid bruits General: trachea midline Resp normal respiratory effort, no retractions, no use of accessory muscles and clear to auscultation bilaterally Auscultation: Negative for rales, rhonchi or wheezes Cardio regular rate, regular rhythm, S1 normal heart sound, S2 normal heart sound, no murmurs, no rub and no gallops GI normal to inspection, nondistended, normoactive bowel sounds, soft to palpation, non-tender and non-distended Extremity General Extremity: edema bilateral Skin Skin Narrative: Patient has a pressure injury approximately 2 inches in diameter in the right ischial area, it is packed with surgical dressing Neuro CN's II-XII intact bilaterally Sensorium / Orientation: awake, alert, oriented to person and oriented to place Speech: speech normal Psych affect normal Assessment & Plan Assessment/Plan (1) Hypokalemia: PLAN: Plan 1. Severe hypokalemia-patient will receive IV potassium riders, she will be seen by nephrology. Etiology of the patient's hypokalemia is unknown at this time, when she was in the hospital in July 2022 she had normal potassium. BMP will be rechecked this evening. #2 acute cystitis-patient is on meropenem presently, await urine culture final results, preliminary results show gram-negative alfie-possible Pseudomonas #3 generalized debility secondary to chronic MS-complicates care, medical course, recovery, and prognosis, PT and OT are seeing patient, speech therapy seeing patient #4 pressure injury right ischial area-wound care nurse is seeing patient #5 type 2 diabetes-blood sugars will be monitored, sliding scale insulin will be used as needed #6 hypothyroidism-patient is on Synthroid #7 chronic depression-patient is on Cymbalta #8 multiple sclerosis-complicates care, medical course, recovery, and prognosis Total clinical time spent by myself addressing patient's medical issues, reviewing all of her data, and collaborating with patient's care team: 35 minutes Charges/Coding Visit Charges Inpatient E&M: 96996 Subs Hosp L2
[2022-09-07 19:53] LABS: Bedside Glucose 34 mg/dL (74-106)
[2022-09-07] MEDS: 0.9% Saline Lock 10 ML Syringe IV (20:11)
[2022-09-07 20:16] LABS: Bedside Glucose 45 mg/dL (74-106)
[2022-09-07 20:21] LABS: Anion Gap 7 (5-15); BUN 25 mg/dL (7-18); BUN/Creat Ratio 18.1 RATIO (10-20); Calcium,Total 7.5 mg/dL (8.5-10.1); Chloride 110 mmol/L (98-107); Creatinine, Serum 1.38 mg/dL (0.55-1.02); EST Glomerular Filtration Rate 41 mL/min (>60); Est Glom Filt Rate - Afr Amer 50 mL/min (>60); Estimated Creatinine Clearance 56.87 ml/min; Glucose 45 mg/dL (74-106); Potassium 3.3 mmol/L (3.5-5.1); Sodium Level 137 mmol/L (136-145)
[2022-09-07 21:05] LABS: Glucose 70 mg/dL (74-106)
[2022-09-07 21:13] LABS: Bedside Glucose 80 mg/dL (74-106)
[2022-09-07 22:00] VITALS: O2SAT 98
[2022-09-07 22:12] VITALS: BP 96/62; PULSE 82; RESP 18; TEMP 36.4; O2SAT 100
[2022-09-07] MEDS: Insulin Glargine-YFGN 100 UNIT/ML Pen 15 UNIT SC (22:39)
[2022-09-07 23:46] LABS: Bedside Glucose 31 mg/dL (74-106)
[2022-09-07 23:46] LABS: Bedside Glucose 40 mg/dL (74-106)
[2022-09-08] MEDS: 0.9% Saline Lock 10 ML Syringe IV (00:11)
[2022-09-08] MEDS: Dextrose 50%-Water 25 GM/50 ML DISP.SYRIN IV ×3 (00:12→16:13)
[2022-09-08 01:54] LABS: Bedside Glucose 55 mg/dL (74-106)
[2022-09-08] MEDS: Potassium Chloride 40 MEQ in 0.9% Normal Saline 1,000 ML 125 MEQ IV (03:20)
[2022-09-08 03:40] VITALS: O2SAT 99
[2022-09-08 03:55] VITALS: BP 114/61; PULSE 84; RESP 16; TEMP 36.5; O2SAT 100
[2022-09-08 04:00] VITALS: BP 114/61; PULSE 84; RESP 16; TEMP 36.5; O2SAT 100
[2022-09-08] MEDS: Levothyroxine 50 MCG Tablet PO (06:37)
[2022-09-08 07:00] LABS: Bedside Glucose 30 mg/dL (74-106)
[2022-09-08 07:23] LABS: Albumin, Serum 2.2 g/dL (3.2-5.0); BUN 21 mg/dL (7-18); BUN/Creat Ratio 16.3 RATIO (10-20); Calcium,Total 7.9 mg/dL (8.5-10.1); Chloride 116 mmol/L (98-107); Creatinine, Serum 1.29 mg/dL (0.55-1.02); EST Glomerular Filtration Rate 45 mL/min (>60); Est Glom Filt Rate - Afr Amer 54 mL/min (>60); Estimated Creatinine Clearance 60.84 ml/min; Glucose 22 mg/dL (74-106); Potassium 4.4 mmol/L (3.5-5.1); Sodium Level 139 mmol/L (136-145)
[2022-09-08 07:47] LABS: Bedside Glucose 26 mg/dL (74-106)
[2022-09-08 08:05] LABS: Bedside Glucose 203 mg/dL (74-106)
[2022-09-08] MEDS: DAKIN'S SOL HALF STRENGTH (=0.25%) 1 APPLIC TOPICAL (09:46)
[2022-09-08] MEDS: Menthol/Lanolin/Calamine/Znox 113 GM Tube 1 APPLIC TOPICAL ×2 (09:47→22:35)
[2022-09-08 10:41] VITALS: BP 116/69; PULSE 89; RESP 16; TEMP 36.7; O2SAT 100
[2022-09-08 12:54] LABS: Bedside Glucose 103 mg/dL (74-106)
--- NOTE | 2022-09-08 14:14 | PN.RENAL_ITS ---
Subjective Subjective Patient is resting in bed but moaning during conversation and exam. Objective Data Objective Data Vital Signs: Vital Signs Temp Pulse Resp BP Pulse Ox O2 Del Method 98.1 F 89 16 116/69 100 Room Air 09/08/22 10:41 09/08/22 10:41 09/08/22 10:41 09/08/22 10:41 09/08/22 10:41 09/08/22 10:41 Oxygen Delivery Method Room Air Weight: 83.1 kg Body Mass Index (BMI) 38.2 Intake & Output: Intake and Output for Last 24 Hours 09/06/22 09/07/22 09/08/22 23:59 23:59 23:59 Intake Total 3243.33 / 3243.33 4231.67 / 4231.67 2400 / 2400 Output Total 900 / 900 1600 / 1600 475 / 475 Balance 2343.33 / 2343.33 2631.67 / 2631.67 1925 / 1925 Lab / Micro Data 09/07/22 06:30 09/08/22 05:30 Labs: Laboratory Results - last 24 hr 09/07/22 16:33: POC Glucose 81 09/07/22 18:30: Sodium 137, Potassium 3.3 L, Chloride 110 H, Carbon Dioxide 20.0 L, Anion Gap 7, BUN 25 H, Creatinine 1.38 H, Estim Creat Clear Calc 56.87, Est GFR (MDRD) Af Amer 50 L, Est GFR (MDRD) Non-Af 41 L, BUN/Creatinine Ratio 18.1, Glucose 45 L, Calcium 7.5 L 09/07/22 19:31: POC Glucose 34 L* 09/07/22 19:56: POC Glucose 45 L 09/07/22 20:45: Glucose 70 L 09/07/22 20:47: POC Glucose 80 09/07/22 22:22: POC Glucose 40 L* 09/07/22 23:27: POC Glucose 31 L* 09/08/22 01:36: POC Glucose 55 L 09/08/22 05:30: Sodium 139, Potassium 4.4, Chloride 116 H, Carbon Dioxide 17.0 L , BUN 21 H, Creatinine 1.29 H, Estim Creat Clear Calc 60.84, Est GFR (MDRD) Af Amer 54 L, Est GFR (MDRD) Non-Af 45 L, BUN/Creatinine Ratio 16.3, Glucose 22 L*, Calcium 7.9 L, Phosphorus 1.0 L*, Albumin 2.2 L 09/08/22 06:33: POC Glucose 30 L* 09/08/22 07:30: POC Glucose 26 L* 09/08/22 07:48: POC Glucose 203 H 09/08/22 10:49: POC Glucose 103 Micro: Microbiology 09/05/22 19:37 Urine, Clean Catch Urine Culture - Preliminary Pseudomonas aeruginosa Gram negative alfie 09/05/22 18:50 Blood Culture (Wb) - Anticubital Right Blood Culture - Preliminary No growth in 48 hours. 09/05/22 18:30 Blood Culture (Wb) - Anticubital Left Blood Culture - Preliminary No growth in 48 hours. 09/06/22 19:00 Stool Enteric Bacteriology - Final 09/06/22 Unknown Stool C. difficile DNA Amplification - Final 09/06/22 Unknown Stool Stool Occult Blood (JULIANNA) - Final Occult Blood Positive Physical Exam Narrative Alert to name, no apparent distress Lung sounds clear anteriorly and posteriorly, no wheezes rhonchi rales noted S1, S2, RRR Abdomen soft, positive bowel sounds No pitting edema Indwelling Vlaenzuela with yellow urine Assessment & Plan Assessment/Plan (1) Hypokalemia: (2) Weakness: (3) Hyponatremia: PLAN: Plan This is a 62-year-old female with past medical history significant for hypertension, MS, bedbound, diabetes mellitus type 2 who presented to the emergency room with complaints of feeling unwell with associated nausea and poor oral intake. Initial lab work in the emergency room potassium 1.5, sodium 130, creatinine 1.45, glucose 171, urine potassium 2.9. Patient did not have any arrhythmias. - hypokalemia improved with supplements; Potassium is up to 4.4 today. Patient has normal baseline potassium trends; her potassium was 3.8 on August 12, 2022. Continue holding diuretic as you are and replacing potassium as needed. Also encouraged patient to try and eat potassium rich foods. - Hypovolemic hyponatremia likely from overdiuresis. Sodium was 130 on admission and today has improved to 139. Patient has normal baseline sodium trends. IVF rate decreased. - EDWINA; Serum creatinine was 1.45 on admission, peaked 1.54 and today is 1.29; fluctuations in serum creatinine likely secondary to hemodynamics. Patient has normal baseline creatinine trends. -phosphorus 1.0 today likely from very poor oral intake and replace with sodium phosphate as ordered and will also add K-phos bid for 2 days. - labs ordered for am
[2022-09-08] MEDS: Potassium Chloride 40 MEQ in 0.9% Normal Saline 1,000 ML 75 MEQ IV ×2 (14:41→22:27)
--- NOTE | 2022-09-08 15:54 | PN.HOSP_ITS ---
Reason for Visit Reason for Visit: Diagnoses Hypokalemia (09/05/22) Urinary tract infection, site not specified (09/05/22) Weakness (09/05/22) Infection and inflammatory reaction due to indwelling urethral catheter, initial encounter (09/05/22) Subjective Subjective Patient was seen and examined today, her phosphorus was low this morning, I wrot e for phosphorus replacement and talked with nephrology about her care. Patient's blood sugar is also been low at times, I have elected to stop her long-acting insulin and I feel the hypoglycemia probably was a result of her taking Amaryl as an outpatient. Patient's potassium was normal today, I made the decision to reduce her IV rate. Patient's urine culture grew out Pseudomonas which is sensitive to quinolones, patient has a history of hives from Cipro in the past but I made the decision to day to place her on levofloxacin to see if she would tolerate this. Objective Data Objective Data Vital Signs: Vital Signs Temp Pulse Resp BP Pulse Ox O2 Del Method 98.1 F 89 16 116/69 100 Room Air 09/08/22 10:41 09/08/22 10:41 09/08/22 10:41 09/08/22 10:41 09/08/22 10:41 09/08/22 10:41 Oxygen Delivery Method Room Air Weight: 83.1 kg Body Mass Index (BMI) 38.2 Intake & Output: Intake and Output for Last 24 Hours 09/06/22 09/07/22 09/08/22 23:59 23:59 23:59 Intake Total 3243.33 / 3243.33 4231.67 / 4231.67 2415 / 2415 Output Total 900 / 900 1600 / 1600 475 / 475 Balance 2343.33 / 2343.33 2631.67 / 2631.67 1940 / 1940 Lab / Micro Data 09/07/22 06:30 09/08/22 05:30 Labs: Laboratory Results - last 24 hr 09/07/22 16:33: POC Glucose 81 09/07/22 18:30: Sodium 137, Potassium 3.3 L, Chloride 110 H, Carbon Dioxide 20.0 L, Anion Gap 7, BUN 25 H, Creatinine 1.38 H, Estim Creat Clear Calc 56.87, Est GFR (MDRD) Af Amer 50 L, Est GFR (MDRD) Non-Af 41 L, BUN/Creatinine Ratio 18.1, Glucose 45 L, Calcium 7.5 L 09/07/22 19:31: POC Glucose 34 L* 09/07/22 19:56: POC Glucose 45 L 09/07/22 20:45: Glucose 70 L 09/07/22 20:47: POC Glucose 80 09/07/22 22:22: POC Glucose 40 L* 09/07/22 23:27: POC Glucose 31 L* 09/08/22 01:36: POC Glucose 55 L 09/08/22 05:30: Sodium 139, Potassium 4.4, Chloride 116 H, Carbon Dioxide 17.0 L , BUN 21 H, Creatinine 1.29 H, Estim Creat Clear Calc 60.84, Est GFR (MDRD) Af Amer 54 L, Est GFR (MDRD) Non-Af 45 L, BUN/Creatinine Ratio 16.3, Glucose 22 L*, Calcium 7.9 L, Phosphorus 1.0 L*, Albumin 2.2 L 09/08/22 06:33: POC Glucose 30 L* 09/08/22 07:30: POC Glucose 26 L* 09/08/22 07:48: POC Glucose 203 H 09/08/22 10:49: POC Glucose 103 Micro: Microbiology 09/05/22 19:37 Urine, Clean Catch Urine Culture - Preliminary Pseudomonas aeruginosa Gram negative alfie 09/05/22 18:50 Blood Culture (Wb) - Anticubital Right Blood Culture - Preliminary No growth in 48 hours. 09/05/22 18:30 Blood Culture (Wb) - Anticubital Left Blood Culture - Preliminary No growth in 48 hours. 09/06/22 19:00 Stool Enteric Bacteriology - Final 09/06/22 Unknown Stool C. difficile DNA Amplification - Final 09/06/22 Unknown Stool Stool Occult Blood (JULIANNA) - Final Occult Blood Positive Physical Exam Narrative alert and no apparent distress Constitutional Narrative: Patient appears older than her stated age General Appearance: cooperative, well kempt and well developed Orientation / Consciousness: awake, oriented to person and oriented to place HEENT normocephalic, head/scalp atraumatic and moist oral mucous membranes Eyes PERRL, EOMs intact bilaterally and conjunctivae normal Neck supple, no JVD, thyroid normal and no carotid bruits General: trachea midline Resp normal respiratory effort, no retractions, no use of accessory muscles and clear to auscultation bilaterally Auscultation: Negative for rales, rhonchi or wheezes Cardio regular rate, regular rhythm, S1 normal heart sound, S2 normal heart sound, no murmurs, no rub and no gallops GI normal to inspection, nondistended, normoactive bowel sounds, soft to palpation, non-tender and non-distended Extremity General Extremity: edema bilateral Skin Skin Narrative: Patient has a pressure injury approximately 2 inches in diameter in the right ischial area, it is packed with surgical dressing Neuro CN's II-XII intact bilaterally Sensorium / Orientation: awake, alert, oriented to person and oriented to place Speech: speech normal Psych affect flat Assessment & Plan Assessment/Plan (1) Hypokalemia: PLAN: Plan 1. Severe hypokalemia-this is corrected at this time, labs will be needed tomorrow #2 acute cystitis with Pseudomonas-patient was on cefepime, made the decision today to change her to Levaquin, we will need to watch for any signs of rash or hives #3 generalized debility secondary to chronic MS-complicates care, medical course, recovery, and prognosis, PT and OT are seeing patient, speech therapy seeing patient #4 pressure injury right ischial area-wound care nurse is seeing patient #5 type 2 diabetes-blood sugars will be monitored, sliding scale insulin will be used as needed #6 hypothyroidism-patient is on Synthroid #7 chronic depression-patient is on Cymbalta #8 multiple sclerosis-complicates care, medical course, recovery, and prognosis #9 hypophosphatemia-patient was given sodium phosphate today-serum phosphorus will be rechecked tomorrow #10 hypoglycemia-this is most probably from her Amaryl, fingerstick blood sugars will be monitored closely this afternoon. Total clinical time spent by myself addressing patient's medical issues, reviewing all of her data, and collaborating with patient's care team: 35 noah natalio Charges/Coding Visit Charges Inpatient E&M: 33137 Subs Hosp L2
[2022-09-08 16:00] VITALS: BP 106/60; PULSE 97; RESP 16; TEMP 36.9; O2SAT 98
[2022-09-08] MEDS: levoFLOXacin 250 MG Tablet PO (16:20)
[2022-09-08] MEDS: Midodrine HCl 5 MG Tablet 10 MG PO (16:23)
[2022-09-08] MEDS: Potassium Chloride Oral Tablet 20 MEQ 40 MEQ PO (16:23)
--- NOTE | 2022-09-08 16:40 | CASEMGMT ---
TRUNG NICHOLSON chart review: Patient was admitted 08/08-08/12/22 for UTI and ischial wound. See TRUNG NICHOLSON assessment from 08/10/22. Patient was discharged home with [facility] for SN. SW made an APS referral. Patient returned 09/05/22 for increased weakness for 3 days and was admitted for hypokalemia. TRUNG NICHOLSON in to dicuss readmission and discharge planning with patient. Patient unable to carry conversation with patient due to pain. Patient states she did go to her follow-up appts and was taking her medications as prescribed. Patient states she is not able to concentrate on conversation at this time. Patient states she wishes to go home at discharge with [facility]. CM will continue to follow this patient and plan for a safe discharge.
[2022-09-08 17:47] LABS: Bedside Glucose 71 mg/dL (74-106)
[2022-09-08 17:48] LABS: Bedside Glucose 158 mg/dL (74-106)
[2022-09-08 18:23] LABS: Bedside Glucose 139 mg/dL (74-106)
[2022-09-08 19:23] LABS: Bedside Glucose 132 mg/dL (74-106)
[2022-09-08 22:00] VITALS: BP 98/63; PULSE 87; RESP 16; TEMP 36.7; O2SAT 93
[2022-09-08 22:33] LABS: Bedside Glucose 84 mg/dL (74-106)
[2022-09-09] MEDS: Baclofen 10 MG Tablet PO (00:26)
[2022-09-09 03:12] LABS: Bedside Glucose 66 mg/dL (74-106)
[2022-09-09 04:00] VITALS: BP 92/64; PULSE 86; RESP 17; TEMP 36.1; O2SAT 100
[2022-09-09 06:28] LABS: Bedside Glucose 88 mg/dL (74-106)
[2022-09-09 07:35] LABS: Anion Gap 5 (5-15); BUN 19 mg/dL (7-18); BUN/Creat Ratio 17.6 RATIO (10-20); Calcium,Total 7.8 mg/dL (8.5-10.1); Chloride 122 mmol/L (98-107); Creatinine, Serum 1.08 mg/dL (0.55-1.02); EST Glomerular Filtration Rate 55 mL/min (>60); Est Glom Filt Rate - Afr Amer 67 mL/min (>60); Estimated Creatinine Clearance 72.67 ml/min; Glucose 103 mg/dL (74-106); Phosphorus 2.1 mg/dL (2.5-4.9); Potassium 5.4 mmol/L (3.5-5.1); Sodium Level 143 mmol/L (136-145)
--- NOTE | 2022-09-09 08:16 | PCM.PN.HOSP ---
Reason for Visit Reason for Visit: Diagnoses Hypokalemia (09/05/22) Urinary tract infection, site not specified (09/05/22) Weakness (09/05/22) Infection and inflammatory reaction due to indwelling urethral catheter, initial encounter (09/05/22) Subjective Subjective Patient is a 62-year-old female admitted with increasing generalized weakness. Diagnosed with acute cystitis Objective Data Objective Data Vital Signs: Vital Signs Temp Pulse Resp BP Pulse Ox O2 Del Method 97.0 F L 86 17 92/64 100 Room Air 09/09/22 04:00 09/09/22 04:00 09/09/22 04:00 09/09/22 04:00 09/09/22 04:00 09/09/22 04:00 Oxygen Delivery Method Room Air Weight: 83.1 kg Body Mass Index (BMI) 38.2 Intake & Output: Intake and Output for Last 24 Hours 09/07/22 09/08/22 09/09/22 23:59 23:59 23:59 Intake Total 4231.67 / 4231.67 3280 / 3280 0 / 0 Output Total 1600 / 1600 775 / 1025 500 / 500 Balance 2631.67 / 2631.67 2505 / 2255 -500 / -500 Lab / Micro Data 09/07/22 06:30 09/09/22 06:12 Labs: Laboratory Results - last 24 hr 09/08/22 10:49: POC Glucose 103 09/08/22 15:48: POC Glucose 71 L 09/08/22 17:12: POC Glucose 158 H 09/08/22 18:02: POC Glucose 139 H 09/08/22 19:01: POC Glucose 132 H 09/08/22 22:16: POC Glucose 84 09/09/22 02:54: POC Glucose 66 L 09/09/22 06:10: POC Glucose 88 09/09/22 06:12: Sodium 143, Potassium 5.4 H, Chloride 122 H, Carbon Dioxide 16.0 L, Anion Gap 5, BUN 19 H, Creatinine 1.08 H, Estim Creat Clear Calc 72.67, Est GFR (MDRD) Af Amer 67, Est GFR (MDRD) Non-Af 55 L, BUN/Creatinine Ratio 17.6, Glucose 103, Calcium 7.8 L, Phosphorus 2.1 L Micro: Microbiology 09/05/22 19:37 Urine, Clean Catch Urine Culture - Final Pseudomonas aeruginosa Citrobacter freundii 09/05/22 18:50 Blood Culture (Wb) - Anticubital Right Blood Culture - Preliminary No growth in 48 hours. 09/05/22 18:30 Blood Culture (Wb) - Anticubital Left Blood Culture - Preliminary No growth in 48 hours. 09/06/22 19:00 Stool Enteric Bacteriology - Final 09/06/22 Unknown Stool C. difficile DNA Amplification - Final 09/06/22 Unknown Stool Stool Occult Blood (JULIANNA) - Final Occult Blood Positive Physical Exam Narrative GENERAL: cooperative HEENT: Atraumatic; normocephalic EYES; Anicteric, Normal Conjunctiva NECK; supple, normal thyroid, RESPIRATORY: Diminished to auscultation CARDIOVASCULAR:? Regular S1 S2, GI:? soft, normoactive bowel sounds, : No Renal angle tenderness; EXTREMITIES: Left forearm and wrist cool to touch and swelling MUSCULOSKELETAL:? no muscle wasting Skin: As above Psych: Cooperative Assessment & Plan Assessment/Plan (1) Hypokalemia: PLAN: Plan Patient is a 62-year-old female admitted with increasing generalized weakness. Diagnosed with acute cystitis 1. Acute cystitis with Pseudomonas ? Patient started on cefepime switched to Levaquin 2. Severe hypokalemia ? Corrected per protocol 3 Multiple renal calculi with mild bilateral hydronephrosis -Has bilateral ureteral stents in place, there is a 5 mm distal ureteral calculus on the right side with mild hydronephrosis and multiple left renal calculi with large UVJ calculus and mild left hydronephrosis with ureteral stent in place. 4. EDWINA on CKD stage IIIb -Patient is on Furosemide held management IV fluid with monitoring of electrolytes ordered patient improving with conservative management. Creatinine improving with conservative measures 5.? Multiple sclerosis with chronic bilateral lower extremity weakness.? Patient is bedbound.? Due to consult was placed PT and OT and protective services social worker to assist with discharge planning 6.? Diabetes mellitus type II complications including peripheral neuropathy -patient's oral hypoglycemics held. Placed on long acting insulin, Accu-Cheks a.c. and at bedtime and covered with sliding scale insulin 7.? Dyslipidemia -Patient is on statin therapy, continued at home dose 8.? Hypothyroidism - Patient is on levothyroxine home dose continued 9.? Depression with anxiety ? Patient is on duloxetine did continue 10.? Class II obesity with BMI of 39 ? Patient with multiple sclerosis complicates effort regarding weight loss. Patient is on Ozempic 11. pressure injury right ischial area -Wound care nurse is seeing patient 12. Hypoglycemia Secondary to be glimepiride. Monitoring with Accu-Cheks with offending medication held 13 .? DVT prophylaxis ? SC Lovenox 14. Swelling of left forearm and wrist ? Ordered both arterial and venous duplex to rule out arterial occlusion and DVT Time spent in the patient's overall evaluation,decision-making process, review of diagnostic data, adjustment of management, discussion with other providers, nursing nursing and ancillary staff involved in patient's care documentation, 50 minutes Charges/Coding Visit Charges Inpatient E&M: 31572 Subs Hosp L3
[2022-09-09 08:25] VITALS: BP 89/58; PULSE 87; RESP 12; TEMP 36.7; O2SAT 100
[2022-09-09] MEDS: Menthol/Lanolin/Calamine/Znox 113 GM Tube 1 APPLIC TOPICAL ×2 (09:50→22:28)
[2022-09-09] MEDS: DAKIN'S SOL HALF STRENGTH (=0.25%) 1 APPLIC TOPICAL (09:51)
--- NOTE | 2022-09-09 10:12 | VDUE_ITS ---
Reason For Study: Lt Arm Swelling Right Proximal Left Proximal Right subclavian vein is spontaneous, widely Left jugular vein is spontaneous, widely patent, phasic, with no intraluminal patent, phasic, with no intraluminal echogenicity noted. echogenicity noted. Left subclavian vein is spontaneous, widely patent, phasic, with no intraluminal echogenicity noted. Left Arm Left axillary vein is dilated with intraluminal echogenicity noted and no Doppler flow noted. Left brachial vein is dilated with intraluminal echogenicity noted and no Doppler flow noted. Left cephalic vein is dilated with intraluminal echogenicity noted and no Doppler flow noted. Left basilic vein is dilated with intraluminal echogenicity noted and no Doppler flow noted. Left Lower Arm Left radial vein is dilated with intraluminal echogenicity noted and no Doppler flow noted. Left ulnar vein is compressible. Patient Safety Preliminary givento MANAGER NEWS responsible for the patient. VL/Venous Duplex US, Unilateral Interpretation Summary Acute deep venous thrombosis identified in the left axillary vein, brachial vei n, radial vein. Acute superficial vein thrombosis identified in the left cephalic vein, basilic vein Ordering Physician: Ahsan Iverson Referring Physician: Sheri King Performed By: Matthew Medina, RVT ???
--- NOTE | 2022-09-09 10:16 | ADUUE_ITS ---
Reason For Study: Lt Arm Swelling LEFT Left Subclavian velocity = 41.7 cm/sec. Left Axillary velocity = 71.5 cm/sec. Left Brachial velocity = 89.2 cm/sec. Left Radial velocity = 28.7 cm/sec. Left Ulnar velocity = 15.7 cm/sec. Limited views obtained. Technically difficult exam due to patient involuntary movement. VL/US Art Duplex Unilat UP Extrem Interpretation Summary Left upper extremity arteries patent with no evidence of stenosis. Ordering Physician: Ahsan Iverson Referring Physician: Sheri King Performed By: Matthew Medina RVT
[2022-09-09 10:57] VITALS: BP 93/58; PULSE 89; RESP 12; TEMP 36.7; O2SAT 97
[2022-09-09 11:17] LABS: Bedside Glucose 72 mg/dL (74-106)
--- NOTE | 2022-09-09 12:00 | WOUNDNOTE ---
skin photo: left arm
--- NOTE | 2022-09-09 12:04 | WOUNDNOTE ---
patient has an area of ecchymosis to the left forearm that measures approx 8cm x 9cm. the left arm is very edematous and the hand is cool to touch. Dr soto and has ordered arterial and venous doppler. see skin photo.
--- NOTE | 2022-09-09 12:26 | PCM.PN.REN ---
Subjective Subjective Patient continues to moan out. No overnight events. No apparent distress Objective Data Objective Data Vital Signs: Vital Signs Temp Pulse Resp BP Pulse Ox O2 Del Method 98.0 F 89 12 93/58 L 97 Room Air 09/09/22 10:57 09/09/22 10:57 09/09/22 10:57 09/09/22 10:57 09/09/22 10:57 09/09/22 10:57 Oxygen Delivery Method Room Air Weight: 83.1 kg Body Mass Index (BMI) 38.2 Intake & Output: Intake and Output for Last 24 Hours 09/07/22 09/08/22 09/09/22 23:59 23:59 23:59 Intake Total 4231.67 / 4231.67 3280 / 3280 851.25 / 851.25 Output Total 1600 / 1600 775 / 1025 500 / 500 Balance 2631.67 / 2631.67 2505 / 2255 351.25 / 351.25 Lab / Micro Data 09/07/22 06:30 09/09/22 06:12 Labs: Laboratory Results - last 24 hr 09/08/22 10:49: POC Glucose 103 09/08/22 15:48: POC Glucose 71 L 09/08/22 17:12: POC Glucose 158 H 09/08/22 18:02: POC Glucose 139 H 09/08/22 19:01: POC Glucose 132 H 09/08/22 22:16: POC Glucose 84 09/09/22 02:54: POC Glucose 66 L 09/09/22 06:10: POC Glucose 88 09/09/22 06:12: Sodium 143, Potassium 5.4 H, Chloride 122 H, Carbon Dioxide 16.0 L, Anion Gap 5, BUN 19 H, Creatinine 1.08 H, Estim Creat Clear Calc 72.67, Est GFR (MDRD) Af Amer 67, Est GFR (MDRD) Non-Af 55 L, BUN/Creatinine Ratio 17.6, Glucose 103, Calcium 7.8 L, Phosphorus 2.1 L 09/09/22 10:54: POC Glucose 72 L Micro: Microbiology 09/05/22 19:37 Urine, Clean Catch Urine Culture - Final Pseudomonas aeruginosa Citrobacter freundii 09/05/22 18:50 Blood Culture (Wb) - Anticubital Right Blood Culture - Preliminary No growth in 48 hours. 09/05/22 18:30 Blood Culture (Wb) - Anticubital Left Blood Culture - Preliminary No growth in 48 hours. 09/06/22 19:00 Stool Enteric Bacteriology - Final 09/06/22 Unknown Stool C. difficile DNA Amplification - Final 09/06/22 Unknown Stool Stool Occult Blood (JULIANNA) - Final Occult Blood Positive Physical Exam Narrative Alert to name, no apparent distress Lung sounds clear anteriorly and posteriorly, no wheezes rhonchi rales noted S1, S2, RRR Abdomen soft, positive bowel sounds No pitting edema Indwelling Valenzuela with yellow urine Assessment & Plan Assessment/Plan (1) Hypokalemia: (2) Weakness: (3) Hyponatremia: PLAN: Plan This is a 62-year-old female with past medical history significant for hypertension, MS, bedbound, diabetes mellitus type 2 who presented to the emergency room with complaints of feeling unwell with associated nausea and poor oral intake. Initial lab work in the emergency room potassium 1.5, sodium 130, creatinine 1.45, glucose 171, urine potassium 2.9. Patient did not have any arrhythmias. - hypokalemia improved with supplements; potassium tammy 1.1. Potassium is up to 5.4 today. Potassium supplements stopped. Patient has normal baseline potassium trends; her potassium was 3.8 on August 12, 2022. Continue holding diuretic as you are and replacing potassium as needed. - Hypovolemic hyponatremia likely from overdiuresis. Sodium was 130 on admission and today has improved to 143. Patient has normal baseline sodium trends. IVF stopped. - Nonoliguric, mild hypovolemic EDWINA; Serum creatinine was 1.45 on admission, peaked 1.54 and today is 1.08; fluctuations in serum creatinine likely secondary to hemodynamics. Patient has normal baseline creatinine trends. -phosphorus was 1.0 yesterday, improved with supplement, today her phosphorus is 2.1. Likely from very poor oral intake. She is not on any phosphate binders. We will check phosphorus in a.m. - bps low on midodrine - labs ordered for am
[2022-09-09] MEDS: HEPARIN/D5w 25,000 UNITS 25,000 UNITS/250 ML IV.SOLN. 12 UNITS CONT INF (12:28)
[2022-09-09] MEDS: Heparin Injection (Vial) 5,000 UNIT/ML VIAL 6000 UNIT IV (12:28)
[2022-09-09 12:31] LABS: Hematocrit 35.7 % (37-47); Hemoglobin 12.1 g/dL (12.0-15.0); Mean Corp Hgb Conc 33.9 g/dL (32-36); Mean Corpuscular Hgb 29.7 pg (27.0-32.0); Mean Corpuscular Volume 87.7 fL (81-99); Mean Platelet Vol. 10.8 fl (6.2-12.0); POSITIVE COUNT YES; POSITIVE MORPHOLOGY YES; Platelet Count 271 K/mm3 (150-450); RBC Distribution Width CV 16.3 % (11.6-14.6); RBC Distribution Width SD 52.3 fl (35.1-43.9); Red Blood Count 4.07 M/mm3 (4.2-5.4); White Blood Count 10.2 K/mm3 (4.4-11.0)
[2022-09-09 12:34] LABS: Differential Indicated MANUAL DIFF
[2022-09-09 12:37] LABS: Prothrombin Time (Protime)PT. 13.5 SECONDS (11.7-14.9)
[2022-09-09 12:38] LABS: Partial Thromboplast Time 28.6 Seconds (24.1-36.2)
[2022-09-09 13:02] LABS: Anion Gap 3 (5-15); BUN 18 mg/dL (7-18); BUN/Creat Ratio 15.8 RATIO (10-20); Calcium,Total 7.6 mg/dL (8.5-10.1); Chloride 121 mmol/L (98-107); Creatinine, Serum 1.14 mg/dL (0.55-1.02); EST Glomerular Filtration Rate 52 mL/min (>60); Est Glom Filt Rate - Afr Amer 63 mL/min (>60); Estimated Creatinine Clearance 68.85 ml/min; Glucose 99 mg/dL (74-106); Potassium 5.6 mmol/L (3.5-5.1); Sodium Level 140 mmol/L (136-145)
[2022-09-09 13:22] LABS: Neutrophil-Segmented 79 % (47-70); Total Cells Counted 100 (MANUAL DIFF)
[2022-09-09 13:23] LABS: Lymphocyte 14 % (19-41); Monocyte 4 % (0-10); Myelocyte 3 % (0-0); Platelet Estimate ADEQUATE (ADEQ); Red Cell Morphology NORM C+C NORMAL (NORM C&C)
--- NOTE | 2022-09-09 14:07 | CON.PCM.SX_ITS ---
Assessment & Plan Assessment/Plan (1) Left upper extremity deep vein thrombosis: PLAN: Ultrasound 09/09/22 revealed acute DVT in left axillary, brachial, and radial veins and SVT in the left cephalic and basilic veins. Agree with initiating anticoagulation with heparin and recommend continued anticoagulation for 3 months. At discharge, would recommend DOAC if patient is accepting/tolerating PO medications at that time otherwise lovenox. Advise elevating the arm as tolerated to manage edema. Will continue to monitor. HPI Consult Data Date of Consult: 09/09/22 HPI Narrative HPI Narrative: MARIA D SMITH, is a 62 F who presented to the [facility] ER on 09/06/22 and was found to have significant hypokalemia and a UTI for which she was admitted. On my examination, patient is alert and responds affirmatively to her name, but otherwise will not answer any questions and as such is a very poor historian. No ROS was obtained for this reason. All history is provided from chart review and nursing staff, no family at bedside. Nursing reports this is her baseline during this admission and tell me she is also refusing PO medications. Urine culture was positive for pseudomonas and she is currently on Levaquin. Hypokalemia felt to be secondary to overdiuresis and has corrected with IV supplementation. Prior to admission, she was at home with [facility] and care of her family. She is bedridden and they use ye lift for transfers. Her past medical history is significant for MS, ischial pressure ulceration, type 2 DM, recurrent UTI, kidney stones. Today, she was noted to have significant swelling of her LUE. Arterial studies were normal. Venous duplex revealed DVT for which we are consulted. Heparin drip was initiated. On review of nursing notes, appears patient had L forearm and L shoulder IV this admission prior to changing to R forearm IV she currently has in place. Nursing reports that they are currently trying to place PICC line in [facility], but unsure if she had prior PICC line. No known prior history of DVT on chart review. [facility] Medical History (Updated 09/09/22 @ 16:43 by SUZY Andrews) Acute on chronic urinary retention Anxiety Bedbound Bilateral knee pain delivery delivered Current use of insulin Depression Diabetes Family history of MS (multiple sclerosis) Fatigue History of multiple sclerosis Hoarseness Hyponatremia Kidney stones Lymphedema MDRO (multiple drug resistant organisms) resistance Morbid obesity Multiple sclerosis Muscle spasm Neurogenic bladder Polyneuropathy Type II diabetes mellitus Vitamin A deficiency Home Medications glimepiride 4 mg tablet 4 mg PO BID DM 12/21/19 [History Last Taken 12/02/21] levothyroxine 50 mcg tablet (Synthroid) 50 mcg PO DAILY thyroid 12/21/19 [History Last Taken 12/02/21] duloxetine 60 mg capsule,delayed release 60 mg PO BID unsure #180 caps 06/30/21 [Rx Last Taken 12/02/21] atorvastatin 80 mg tablet 80 mg PO DAILY cholesterol 12/03/21 [History Last Taken 12/02/21] esomeprazole magnesium 40 mg capsule,delayed release 40 mg PO DAILY stomach 12/03/21 [History Last Taken 12/02/21] furosemide 40 mg tablet 80 mg PO BREAKFAST fluid 12/03/21 [History Last Taken 12/02/21] insulin degludec 200 unit/mL (3 mL) subcutaneous pen (Tresiba FlexTouch U-200 insulin) 50 unit subcut QHS dm 12/03/21 [History Last Taken 12/02/21] metformin 1,000 mg tablet 1,000 mg PO BID DM 12/03/21 [History Last Taken 12/02/21] oxycodone-acetaminophen 5 mg-325 mg tablet 1 tab PO TID PRN MS 12/03/21 [History Last Taken 12/03/21] pregabalin 75 mg capsule 75 mg PO BID pain 12/03/21 [History Last Taken 12/02/21] semaglutide 1 mg/dose (4 mg/3 mL) subcutaneous pen injector (Ozempic) 1 mg subcut QWEEK dm 12/03/21 [History Last Taken 08/29/22] buspirone 5 mg tablet 5 mg PO BID pt unsure #60 tabs 02/04/22 [Rx Last Taken Unknown] cholecalciferol (vitamin D3) 25 mcg (1,000 unit) tablet (Vitamin D3) 25 mcg PO BID supplement 02/04/22 [History Last Taken Unknown] ondansetron 4 mg disintegrating tablet 4 mg PO Q4H PRN PRN Nausea #10 tabs 06/09/22 [Rx Last Taken Unknown] baclofen 10 mg tablet 10 mg PO Q6H PRN PRN Muscle Spasm 06/12/22 [History Last Taken Unknown] midodrine 10 mg tablet 10 mg PO BID Check with primary doctor 08/11/22 [History Last Taken Unknown] cefdinir 300 mg capsule 300 mg PO BID unknown 10 days #20 caps 08/12/22 [Rx Last Taken Unknown] linezolid 600 mg tablet 600 mg PO BID unknown #14 tabs 08/12/22 [Rx Last Taken Unknown] metronidazole 500 mg tablet 500 mg PO Q8H unknown 7 days #21 tabs 08/12/22 [Rx Last Taken Unknown] Allergy/AdvReac Type Severity Reaction Status Date / Time ampicillin [From Unasyn] Allergy Severe Rash Verified 09/05/22 18:44 sulbactam [From Unasyn] Allergy Severe Rash Verified 09/05/22 18:44 ciprofloxacin [From Cipro] Allergy Hives Verified 09/05/22 18:44 ciprofloxacin HCl Allergy Hives Verified 09/05/22 18:44 [From Cipro] clindamycin HCl Allergy Hives Verified 09/05/22 18:44 [From Cleocin] clindamycin palmitate HCl Allergy Hives Verified 09/05/22 18:44 [From Cleocin] clindamycin phosphate Allergy Hives Verified 09/05/22 18:44 [From Cleocin] morphine Allergy Hives Verified 09/05/22 18:44 sulfamethoxazole Allergy Hives Verified 09/05/22 18:44 [From Bactrim] trimethoprim [From Bactrim] Allergy Hives Verified 09/05/22 18:44 hydromorphone HCl AdvReac messes Verified 09/05/22 18:44 [From Dilaudid] with my brain Family History Unknown Multiple sclerosis 1st cousin Father Cancer voucher examiner, black lung, Lung CA. Mother Heart disease Diabetes Heart failure Surgical History H/O hernia repair History of cholecystectomy Social History household members: spouse Smoking Status: Never smoker alcohol intake: never substance use type: does not use ROS Review of Systems ROS Unobtainable: due to mental status Physical Exam Const alert Constitutional Narrative: Patient responds with yes to her name, but does not respond to any other questions HEENT normocephalic and head/scalp atraumatic Eyes General Eye: normal appearance of both eyes Neck General: normal visual inspection Resp normal respiratory effort and clear to auscultation bilaterally Cardio Rate: regular rate Rhythm: regular rhythm Extremity Extremity Narrative: + R radial pulse significant RUE edema compared to left, bilateral upper extremities slightly cool to touch but equal bilaterally Lab / Micro Data 09/09/22 12:03 09/09/22 12:03 Labs: Laboratory Results - last 24 hr 09/08/22 15:48: POC Glucose 71 L 09/08/22 17:12: POC Glucose 158 H 09/08/22 18:02: POC Glucose 139 H 09/08/22 19:01: POC Glucose 132 H 09/08/22 22:16: POC Glucose 84 09/09/22 02:54: POC Glucose 66 L 09/09/22 06:10: POC Glucose 88 09/09/22 06:12: Sodium 143, Potassium 5.4 H, Chloride 122 H, Carbon Dioxide 16.0 L, Anion Gap 5, BUN 19 H, Creatinine 1.08 H, Estim Creat Clear Calc 72.67, Est GFR (MDRD) Af Amer 67, Est GFR (MDRD) Non-Af 55 L, BUN/Creatinine Ratio 17.6, Glucose 103, Calcium 7.8 L, Phosphorus 2.1 L 09/09/22 10:54: POC Glucose 72 L 09/09/22 12:03: WBC 10.2, RBC 4.07 L, Hgb 12.1, Hct 35.7 L, MCV 87.7, MCH 29.7, MCHC 33.9, RDW Std Deviation 52.3 H, RDW Coeff of Mele 16.3 H, Plt Count 271, MPV 10.8, Neut % (Auto) Not Reportable, Absolute Neuts (auto) 8.0 H, Absolute Lymphs (auto) 1.40, Total Counted 100, Neutrophils % (Manual) 79 H, Lymphocytes % (Manual) 14 L, Monocytes % (Manual) 4, Myelocytes % 3 H, Diff Path Review May , Platelet Estimate ADEQUATE, RBC Morphology NORM C+C, PT 13.5, INR 1.0, APTT 28.6, Sodium 140, Potassium 5.6 H, Chloride 121 H, Carbon Dioxide 16.0 L, Anion Gap 3 L, BUN 18, Creatinine 1.14 H, Estim Creat Clear Calc 68.85, Est GFR (MDRD) Af Amer 63, Est GFR (MDRD) Non-Af 52 L, BUN/Creatinine Ratio 15.8, Glucose 99, Calcium 7.6 L Micro: Microbiology 09/05/22 19:37 Urine, Clean Catch Urine Culture - Final Pseudomonas aeruginosa Citrobacter freundii Radiology Impression Venous Doppler Study 09/09/22 10:12 Interpretation Summary Acute deep venous thrombosis identified in the left axillary vein, brachial vein, radial vein. Acute superficial vein thrombosis identified in the left cephalic vein, basilic vein Ordering Physician: Ahsan Iverson Referring Physician: Sheri King Performed By: Matthew Medina RVT ??? Duplex Scan Upper Extremity Artery 09/09/22 10:16 Interpretation Summary Left upper extremity arteries patent with no evidence of stenosis. Ordering Physician: Ahsan Iverson Referring Physician: Sheri King Performed By: Matthew Medina RVT Charges/Coding Visit Charges Inpatient E&M: 70042 Init Hosp L2
--- NOTE | 2022-09-09 16:24 | NURSING ---
pt's son came to visit. this RN entered room and introduced herself. updated son on pt status and POC. pt's son then became irritated with RN stating last admission my mom was put on an antibiotic that made her mental state just like this and she ended up being transferred to [facility] so I want to know if she has been given this antibiotic again. RN asked pt's son if he knew the name of the antibiotic which he states he does not. RN spent approx 15 min scoring pt's chart to find name of antibiotic and documentation stating pt was transferred. RN tells pt's son that according to records in pt's chart, pt was discharged home from her last admission in July. Pt's some became angry stating that [facility] not having proof of what actually happened is not a good sign. RN attempted to calm pt's son and further explain what is being done for pt this stay. Pt's son starts accusing RN of not caring for pt and ignoring pt. RN attempted to explain that RN is doing her best to provide comfort and care to pt but pt is refusing care and all medications. Pt's son states I am getting angry so I am going to leave before something happens. Pt's son then exits room and leaves the unit.
[2022-09-09 16:30] VITALS: BP 105/48; PULSE 89; RESP 16; TEMP 36.6; O2SAT 98
[2022-09-09 16:37] LABS: Bedside Glucose 132 mg/dL (74-106)
[2022-09-09] MEDS: LORazepam 2 MG/ML Syringe 1 MG IV (19:03)
[2022-09-09] MEDS: 0.9% Saline Lock 10 ML Syringe IV (19:03)
[2022-09-09 19:27] LABS: Partial Thromboplast Time 90.2 Seconds (24.1-36.2)
[2022-09-09 22:30] VITALS: BP 106/51; PULSE 90; RESP 16; TEMP 36.7; O2SAT 98
[2022-09-09 22:38] LABS: Bedside Glucose 132 mg/dL (74-106)
[2022-09-10 03:36] LABS: Partial Thromboplast Time 113.5 Seconds (24.1-36.2)
[2022-09-10 04:30] VITALS: BP 110/62; PULSE 85; RESP 17; TEMP 36.6; O2SAT 98
[2022-09-10 07:24] LABS: Bedside Glucose 105 mg/dL (74-106)
--- NOTE | 2022-09-10 08:10 | PCM.PN.HOSP ---
Reason for Visit Reason for Visit: Diagnoses Hypokalemia (09/05/22) Acute embolism and thrombosis of deep veins of left upper extremity (09/05/22) Urinary tract infection, site not specified (09/05/22) Weakness (09/05/22) Infection and inflammatory reaction due to indwelling urethral catheter, initial encounter (09/05/22) Subjective Subjective Patient seen level of sensorium improved. Remains on heparin drip plan is to transition to direct oral anticoagulants. Patient's case was discussed with the son's questions answered. Objective Data Objective Data Vital Signs: Vital Signs Temp Pulse Resp BP Pulse Ox O2 Del Method 97.9 F 85 17 110/62 98 Room Air 09/10/22 04:30 09/10/22 04:30 09/10/22 04:30 09/10/22 04:30 09/10/22 04:30 09/10/22 04:30 Oxygen Delivery Method Room Air Weight: 83.1 kg Body Mass Index (BMI) 38.2 Intake & Output: Intake and Output for Last 24 Hours 09/08/22 09/09/22 09/10/22 23:59 23:59 23:59 Intake Total 3280 / 3280 940.65 / 940.65 188.65 / 188.65 Output Total 775 / 1025 1250 / 1380 210 / 210 Balance 2505 / 2255 -309.35 / -439.35 -21.35 / -21.35 Lab / Micro Data 09/09/22 12:03 09/09/22 12:03 Labs: Laboratory Results - last 24 hr 09/09/22 10:54: POC Glucose 72 L 09/09/22 12:03: WBC 10.2, RBC 4.07 L, Hgb 12.1, Hct 35.7 L, MCV 87.7, MCH 29.7, MCHC 33.9, RDW Std Deviation 52.3 H, RDW Coeff of Mele 16.3 H, Plt Count 271, MPV 10.8, Neut % (Auto) Not Reportable, Absolute Neuts (auto) 8.0 H, Absolute Lymphs (auto) 1.40, Total Counted 100, Neutrophils % (Manual) 79 H, Lymphocytes % (Manual) 14 L, Monocytes % (Manual) 4, Myelocytes % 3 H, Diff Path Review May foll, Platelet Estimate ADEQUATE, RBC Morphology NORM C+C, PT 13.5, INR 1.0, APTT 28.6, Sodium 140, Potassium 5.6 H, Chloride 121 H, Carbon Dioxide 16.0 L, Anion Gap 3 L, BUN 18, Creatinine 1.14 H, Estim Creat Clear Calc 68.85, Est GFR (MDRD) Af Amer 63, Est GFR (MDRD) Non-Af 52 L, BUN/Creatinine Ratio 15.8, Glucose 99, Calcium 7.6 L 09/09/22 16:08: POC Glucose 132 H 09/09/22 18:50: APTT 90.2 H* 09/09/22 22:17: POC Glucose 132 H 09/10/22 03:14: APTT 113.5 H* 09/10/22 07:07: POC Glucose 105 Micro: Microbiology 09/05/22 19:37 Urine, Clean Catch Urine Culture - Final Pseudomonas aeruginosa Citrobacter freundii 09/05/22 18:50 Blood Culture (Wb) - Anticubital Right Blood Culture - Preliminary No growth in 48 hours. 09/05/22 18:30 Blood Culture (Wb) - Anticubital Left Blood Culture - Preliminary No growth in 48 hours. 09/06/22 19:00 Stool Enteric Bacteriology - Final 09/06/22 Unknown Stool C. difficile DNA Amplification - Final 09/06/22 Unknown Stool Stool Occult Blood (JULIANNA) - Final Occult Blood Positive Radiography Diagnostic Testing: Radiology Impression Venous Doppler Study 09/09/22 10:12 Interpretation Summary Acute deep venous thrombosis identified in the left axillary vein, brachial vein, radial vein. Acute superficial vein thrombosis identified in the left cephalic vein, basilic vein Ordering Physician: hAsan Iverson Referring Physician: Sheri King Performed By: Matthew Medina RVT ??? Duplex Scan Upper Extremity Artery 09/09/22 10:16 Interpretation Summary Left upper extremity arteries patent with no evidence of stenosis. Ordering Physician: Ahsan Iverson Referring Physician: Sheri King Performed By: Matthew Medina RVT Physical Exam Narrative GENERAL: cooperative HEENT: Atraumatic; normocephalic EYES; Anicteric, Normal Conjunctiva NECK; supple, normal thyroid, RESPIRATORY: Diminished to auscultation CARDIOVASCULAR:? Regular S1 S2, GI:? soft, normoactive bowel sounds, : No Renal angle tenderness; EXTREMITIES: Left forearm and wrist cool to touch and swelling MUSCULOSKELETAL:? no muscle wasting Skin: As above Psych: Cooperative Assessment & Plan Assessment/Plan (1) Hypokalemia: PLAN: Plan Patient is a 62-year-old female admitted with increasing generalized weakness. Diagnosed with acute cystitis 1. Acute cystitis with Pseudomonas ? Patient started on cefepime switched to Levaquin ? 09/10/2022 remains on Levaquin 2. Severe hypokalemia ? Corrected per protocol ? 09/10/2022 additional Kayexalate given by nephrology. 3 Multiple renal calculi with mild bilateral hydronephrosis -Has bilateral ureteral stents in place, there is a 5 mm distal ureteral calculus on the right side with mild hydronephrosis and multiple left renal calculi with large UVJ calculus and mild left hydronephrosis with ureteral stent in place. 4. EDWINA on CKD stage IIIb -Patient is on Furosemide held management IV fluid with monitoring of electrolytes ordered patient improving with conservative management. Creatinine improving with conservative measures 5.? Multiple sclerosis with chronic bilateral lower extremity weakness.? Patient is bedbound.? Due to consult was placed PT and OT and social media senior associate to assist with discharge planning 6.? Diabetes mellitus type II complications including peripheral neuropathy -patient's oral hypoglycemics held. Placed on long acting insulin, Accu-Cheks a.c. and at bedtime and covered with sliding scale insulin 7.? Dyslipidemia -Patient is on statin therapy, continued at home dose 8.? Hypothyroidism - Patient is on levothyroxine home dose continued 9.? Depression with anxiety ? Patient is on duloxetine did continue 10.? Class II obesity with BMI of 39 ? Patient with multiple sclerosis complicates effort regarding weight loss. Patient is on Ozempic 11. pressure injury right ischial area -Wound care nurse is seeing patient 12. Hypoglycemia Secondary to be glimepiride. Monitoring with Accu-Cheks with offending medication held 13 . Swelling of left forearm and wrist ? Ordered both arterial and venous duplex to rule out arterial occlusion and DVT ?09/10/2022. Venous duplex demonstrated acute DVT in the left axillary vein, brachial vein and radial vein as well as acute superficial vein thrombosis in the left cephalic and basilic vein. Patient started on heparin drip. Patient was seen in consultation by Dr. Arden Love with vascular surgery 14. Physical deconditioning - Requested for PT OT eval and social media senior associate to assist with discharge planning Time spent in the patient's overall evaluation,decision-making process, review of diagnostic data, adjustment of management, discussion with other providers, nursing nursing and ancillary staff involved in patient's care documentation, 50 minutes Charges/Coding Visit Charges Inpatient E&M: 77707 Subs Hosp L3
[2022-09-10] MEDS: Cholecalciferol (VIT D3) 25 MCG TABLET (1,000 UNITS) PO ×2 (09:33→21:19)
[2022-09-10] MEDS: Midodrine HCl 5 MG Tablet 10 MG PO ×2 (09:33→16:51)
[2022-09-10] MEDS: DULoxetine Hcl 60 MG Capsule PO ×2 (09:33→21:19)
[2022-09-10] MEDS: levoFLOXacin 250 MG Tablet PO (09:34)
[2022-09-10] MEDS: busPIRone 5 MG Tablet PO ×2 (09:34→21:18)
[2022-09-10 09:52] VITALS: BP 106/55; PULSE 104; RESP 16; TEMP 36.2; O2SAT 98
--- NOTE | 2022-09-10 10:15 | PN.RENAL_ITS ---
Subjective Subjective Resting quietly, more alert this morning. Denies any complaints. Objective Data Objective Data Vital Signs: Vital Signs Temp Pulse Resp BP Pulse Ox O2 Del Method 97.2 F L 104 H 16 106/55 L 98 Room Air 09/10/22 09:52 09/10/22 09:52 09/10/22 09:52 09/10/22 09:52 09/10/22 09:52 09/10/22 09:52 Oxygen Delivery Method Room Air Weight: 83.1 kg Body Mass Index (BMI) 38.2 Intake & Output: Intake and Output for Last 24 Hours 09/08/22 09/09/22 09/10/22 23:59 23:59 23:59 Intake Total 3280 / 3280 940.65 / 940.65 188.65 / 188.65 Output Total 775 / 1025 1250 / 1380 210 / 210 Balance 2505 / 2255 -309.35 / -439.35 -21.35 / -21.35 Lab / Micro Data 09/09/22 12:03 09/09/22 12:03 Labs: Laboratory Results - last 24 hr 09/09/22 10:54: POC Glucose 72 L 09/09/22 12:03: WBC 10.2, RBC 4.07 L, Hgb 12.1, Hct 35.7 L, MCV 87.7, MCH 29.7, MCHC 33.9, RDW Std Deviation 52.3 H, RDW Coeff of Mele 16.3 H, Plt Count 271, MPV 10.8, Neut % (Auto) Not Reportable, Absolute Neuts (auto) 8.0 H, Absolute Lymphs (auto) 1.40, Total Counted 100, Neutrophils % (Manual) 79 H, Lymphocytes % (Manual) 14 L, Monocytes % (Manual) 4, Myelocytes % 3 H, Diff Path Review June, Platelet Estimate ADEQUATE, RBC Morphology NORM C+C, PT 13.5, INR 1.0, APTT 28.6, Sodium 140, Potassium 5.6 H, Chloride 121 H, Carbon Dioxide 16.0 L, Anion Gap 3 L, BUN 18, Creatinine 1.14 H, Estim Creat Clear Calc 68.85, Est GFR (MDRD) Af Amer 63, Est GFR (MDRD) Non-Af 52 L, BUN/Creatinine Ratio 15.8, Glucose 99, Calcium 7.6 L 09/09/22 16:08: POC Glucose 132 H 09/09/22 18:50: APTT 90.2 H* 09/09/22 22:17: POC Glucose 132 H 09/10/22 03:14: APTT 113.5 H* 09/10/22 07:07: POC Glucose 105 Micro: Microbiology 09/05/22 19:37 Urine, Clean Catch Urine Culture - Final Pseudomonas aeruginosa Citrobacter freundii 09/05/22 18:50 Blood Culture (Wb) - Anticubital Right Blood Culture - Preliminary No growth in 48 hours. 09/05/22 18:30 Blood Culture (Wb) - Anticubital Left Blood Culture - Preliminary No growth in 48 hours. 09/06/22 19:00 Stool Enteric Bacteriology - Final 09/06/22 Unknown Stool C. difficile DNA Amplification - Final 09/06/22 Unknown Stool Stool Occult Blood (JULIANNA) - Final Occult Blood Positive Radiography Diagnostic Testing: Radiology Impression Venous Doppler Study 09/09/22 10:12 Interpretation Summary Acute deep venous thrombosis identified in the left axillary vein, brachial vein, radial vein. Acute superficial vein thrombosis identified in the left cephalic vein, basilic vein Ordering Physician: Ahsan Iverson Referring Physician: Sheri King Performed By: Matthew Medina RVT ??? Duplex Scan Upper Extremity Artery 09/09/22 10:16 Interpretation Summary Left upper extremity arteries patent with no evidence of stenosis. Ordering Physician: Ahsan Iverson Referring Physician: Sheri King Performed By: Matthew Medina RVT Physical Exam Narrative Alert to name, no apparent distress Lung sounds clear anteriorly and posteriorly, no wheezes rhonchi rales noted S1, S2, RRR Abdomen soft, positive bowel sounds No pitting edema B/L legs, edema noted left forearm Indwelling Valenzuela with yellow urine Assessment & Plan Assessment/Plan (1) Hypokalemia: (2) Weakness: (3) Hyponatremia: PLAN: Plan This is a 62-year-old female with past medical history significant for hypertension, MS, bedbound, diabetes mellitus type 2 who presented to the emergency room with complaints of feeling unwell with associated nausea and poor oral intake. Initial lab work in the emergency room potassium 1.5, sodium 130, creatinine 1.45, glucose 171, urine potassium 2.9. Patient did not have any arrhythmias. - hypokalemia improved with supplements; potassium tammy 1.1. Potassium is up to 5.6 today. Potassium supplements stopped. Patient has normal baseline potassium trends; her potassium was 3.8 on August 12, 2022. Continue holding diuretic. Will give SPS and add low K+ diet restrictions - Hypovolemic hyponatremia likely from overdiuresis. Sodium was 130 on admission and today has improved to 140. Patient has normal baseline sodium steve nds. IVF stopped. - Nonoliguric, mild hypovolemic EDWINA; Serum creatinine was 1.45 on admission, pea ked 1.54 and today is 1.14; fluctuations in serum creatinine likely secondary to hemodynamics. Patient has normal baseline creatinine trends. -phosphorus was 1.0, improved with supplement, last phos 2.1. Likely from very poor oral intake. She is not on any phosphate binders. We will check phosphorus in a.m. - bps low but acceptable on midodrine - labs ordered for am
[2022-09-10 10:18] LABS: Pathologist Review Reviewed
[2022-09-10] MEDS: DAKIN'S SOL HALF STRENGTH (=0.25%) 1 APPLIC TOPICAL (10:34)
[2022-09-10] MEDS: Menthol/Lanolin/Calamine/Znox 113 GM Tube 1 APPLIC TOPICAL ×2 (10:34→21:18)
[2022-09-10] MEDS: Acetaminophen 325 MG Tablet 650 MG PO (11:22)
[2022-09-10] MEDS: Insulin Lispro 100 UNIT/ML INSULN.PEN SC ×2 (11:49→16:51)
[2022-09-10] MEDS: Sodium Polystyrene Sulfonate 15 GM/60 ML UDC 30 GM PO (11:51)
[2022-09-10] MEDS: Baclofen 10 MG Tablet PO (11:58)
[2022-09-10 12:18] LABS: Bedside Glucose 236 mg/dL (74-106)
[2022-09-10 12:44] LABS: Partial Thromboplast Time 45.2 Seconds (24.1-36.2)
[2022-09-10] MEDS: HEPARIN/D5w 25,000 UNITS 25,000 UNITS/250 ML IV.SOLN. 9 UNITS CONT INF (13:34)
--- NOTE | 2022-09-10 13:57 | CASEMGMT ---
Patient has a Healthcare Power of Health Care Social Worker on file at [facility]. Patient's Healthcare Power of Health Care Social Worker is patient's son Steven. Patient does not have a Healthcare Living Will. Adriana BURRIS
[2022-09-10 16:00] VITALS: BP 112/73; PULSE 107; PULSE 109; RESP 18; TEMP 36.7; O2SAT 99
[2022-09-10 17:12] LABS: Bedside Glucose 190 mg/dL (74-106)
[2022-09-10 19:46] VITALS: O2SAT 96
[2022-09-10 20:20] LABS: Partial Thromboplast Time 63.6 Seconds (24.1-36.2)
[2022-09-10 21:14] VITALS: BP 101/64; PULSE 86; RESP 18; TEMP 36.8; O2SAT 100
[2022-09-10 22:10] LABS: Bedside Glucose 136 mg/dL (74-106)
[2022-09-11 02:21] LABS: Albumin, Serum 1.9 g/dL (3.2-5.0); BUN 16 mg/dL (7-18); BUN/Creat Ratio 13.1 RATIO (10-20); Calcium,Total 7.8 mg/dL (8.5-10.1); Chloride 115 mmol/L (98-107); Creatinine, Serum 1.22 mg/dL (0.55-1.02); EST Glomerular Filtration Rate 48 mL/min (>60); Est Glom Filt Rate - Afr Amer 58 mL/min (>60); Estimated Creatinine Clearance 64.33 ml/min; Glucose 125 mg/dL (74-106); Phosphorus 2.2 mg/dL (2.5-4.9); Potassium 3.8 mmol/L (3.5-5.1); Sodium Level 139 mmol/L (136-145)
[2022-09-11 02:22] LABS: Partial Thromboplast Time 58.8 Seconds (24.1-36.2)
[2022-09-11 03:30] VITALS: O2SAT 99
[2022-09-11 03:52] VITALS: BP 98/66; PULSE 89; RESP 16; TEMP 36.8; O2SAT 99
[2022-09-11] MEDS: Acetaminophen 325 MG Tablet 650 MG PO ×2 (06:22→17:48)
[2022-09-11] MEDS: Levothyroxine 50 MCG Tablet PO (06:39)
[2022-09-11 07:02] LABS: Bedside Glucose 105 mg/dL (74-106)
--- NOTE | 2022-09-11 07:58 | PN.HOSP_ITS ---
Reason for Visit Reason for Visit: Diagnoses Hypokalemia (09/05/22) Acute embolism and thrombosis of deep veins of left upper extremity (09/05/22) Urinary tract infection, site not specified (09/05/22) Weakness (09/05/22) Infection and inflammatory reaction due to indwelling urethral catheter, initial encounter (09/05/22) Subjective Subjective Patient remains on heparin plan is to discontinue and start patient on apixaban. Objective Data Objective Data Vital Signs: Vital Signs Temp Pulse Resp BP Pulse Ox O2 Del Method 98.3 F 89 16 98/66 99 Room Air 09/11/22 03:52 09/11/22 03:52 09/11/22 03:52 09/11/22 03:52 09/11/22 03:52 09/11/22 03:52 Oxygen Delivery Method Room Air Weight: 83.1 kg Body Mass Index (BMI) 38.2 Intake & Output: Intake and Output for Last 24 Hours 09/09/22 09/10/22 09/11/22 23:59 23:59 23:59 Intake Total 940.65 / 940.65 1421.85 / 1421.85 0 / 0 Output Total 1250 / 1380 610 / 610 175 / 175 Balance -309.35 / -439.35 811.85 / 811.85 -175 / -175 Lab / Micro Data 09/09/22 12:03 09/11/22 01:55 Labs: Laboratory Results - last 24 hr 09/09/22 12:03: Diff Path Review Reviewed 09/10/22 11:48: POC Glucose 236 H 09/10/22 11:50: APTT 45.2 H 09/10/22 16:50: POC Glucose 190 H 09/10/22 19:45: APTT 63.6 H 09/10/22 21:22: POC Glucose 136 H 09/11/22 01:55: APTT 58.8 H, Sodium 139, Potassium 3.8, Chloride 115 H, Carbon Dioxide 10.0 L, BUN 16, Creatinine 1.22 H, Estim Creat Clear Calc 64.33, Est GFR (MDRD) Af Amer 58 L, Est GFR (MDRD) Non-Af 48 L, BUN/Creatinine Ratio 13.1, Glucose 125 H, Calcium 7.8 L, Phosphorus 2.2 L, Albumin 1.9 L 09/11/22 06:42: POC Glucose 105 Micro: Microbiology 09/05/22 18:30 Blood Culture (Wb) - Anticubital Left Blood Culture - Final No growth in 5 days. 09/05/22 18:50 Blood Culture (Wb) - Anticubital Right Blood Culture - Final No growth in 5 days. 09/05/22 19:37 Urine, Clean Catch Urine Culture - Final Pseudomonas aeruginosa Citrobacter freundii 09/06/22 19:00 Stool Enteric Bacteriology - Final 09/06/22 Unknown Stool C. difficile DNA Amplification - Final 09/06/22 Unknown Stool Stool Occult Blood (JULIANNA) - Final Occult Blood Positive Physical Exam Narrative GENERAL: cooperative HEENT: Atraumatic; normocephalic EYES; Anicteric, Normal Conjunctiva NECK; supple, normal thyroid, RESPIRATORY: Diminished to auscultation CARDIOVASCULAR:? Regular S1 S2, GI:? soft, normoactive bowel sounds, : No Renal angle tenderness; EXTREMITIES: Left forearm and wrist cool to touch and swelling MUSCULOSKELETAL:? no muscle wasting Skin: As above Psych: Cooperative Assessment & Plan Assessment/Plan (1) Hypokalemia: PLAN: Plan Patient is a 62-year-old female admitted with increasing generalized weakness. Diagnosed with acute cystitis 1. Acute cystitis with Pseudomonas ? Patient started on cefepime switched to Levaquin ? 09/10/2022 remains on Levaquin 2. Severe hypokalemia ? Corrected per protocol ? 09/10/2022 additional Kayexalate given by nephrology. 3 Multiple renal calculi with mild bilateral hydronephrosis -Has bilateral ureteral stents in place, there is a 5 mm distal ureteral calculus on the right side with mild hydronephrosis and multiple left renal calculi with large UVJ calculus and mild left hydronephrosis with ureteral stent in place. 4. EDWINA on CKD stage IIIb -Patient is on Furosemide held management IV fluid with monitoring of electrolytes ordered patient improving with conservative management. Creatinine improving with conservative measures 5.? Multiple sclerosis with chronic bilateral lower extremity weakness.? Patient is bedbound.? Due to consult was placed PT and OT and social work coordinator to assist with discharge planning 6.? Diabetes mellitus type II complications including peripheral neuropathy -patient's oral hypoglycemics held. Placed on long acting insulin, Accu-Cheks a.c. and at bedtime and covered with sliding scale insulin 7.? Dyslipidemia -Patient is on statin therapy, continued at home dose 8.? Hypothyroidism - Patient is on levothyroxine home dose continued 9.? Depression with anxiety ? Patient is on duloxetine did continue 10.? Class II obesity with BMI of 39 ? Patient with multiple sclerosis complicates effort regarding weight loss. Patient is on Ozempic 11. pressure injury right ischial area -Wound care nurse is seeing patient 12. Hypoglycemia Secondary to be glimepiride. Monitoring with Accu-Cheks with offending medication held 13 . Swelling of left forearm and wrist ? Ordered both arterial and venous duplex to rule out arterial occlusion and DVT ?09/10/2022. Venous duplex demonstrated acute DVT in the left axillary vein, brachial vein and radial vein as well as acute superficial vein thrombosis in the left cephalic and basilic vein. Patient started on heparin drip. Patient was seen in consultation by Dr. Arden Love with vascular surgery ? 09/11/2022;Patient remains on heparin plan is to discontinue and start patient on apixaban. 14. Physical deconditioning - Requested for PT OT eval and social work coordinator to assist with discharge planning Time spent in the patient's overall evaluation,decision-making process, review of diagnostic data, adjustment of management, discussion with other providers, nursing nursing and ancillary staff involved in patient's care documentation,35 minutes Charges/Coding Visit Charges Inpatient E&M: 62981 Subs Hosp L2
[2022-09-11] MEDS: Cholecalciferol (VIT D3) 25 MCG TABLET (1,000 UNITS) PO (08:09)
[2022-09-11] MEDS: Midodrine HCl 5 MG Tablet 10 MG PO ×2 (08:09→17:20)
[2022-09-11] MEDS: DULoxetine Hcl 60 MG Capsule PO ×2 (08:09→22:12)
[2022-09-11] MEDS: busPIRone 5 MG Tablet PO ×2 (08:09→22:11)
[2022-09-11] MEDS: DAKIN'S SOL HALF STRENGTH (=0.25%) 1 APPLIC TOPICAL (08:10)
[2022-09-11] MEDS: Menthol/Lanolin/Calamine/Znox 113 GM Tube 1 APPLIC TOPICAL ×2 (08:10→22:11)
[2022-09-11] MEDS: APIXABAN 5 MG TABLET 10 MG PO ×2 (09:36→22:11)
[2022-09-11 09:47] LABS: Partial Thromboplast Time 33.3 Seconds (24.1-36.2)
[2022-09-11 09:52] VITALS: BP 95/50; PULSE 99; RESP 18; TEMP 36.6; O2SAT 100
--- NOTE | 2022-09-11 10:08 | DS.PCM_ITS ---
Providers Date of Admission: 09/05/22 Date of Discharge: 09/11/22 Primary Care Physician: YG BUNCH, LAURA Consultations 09/06/22 00:08 Consult: Onc/Wound/technical services specialist Routine Comment: Reason for Consult:: decub ulcer to right gluteal fold 09/06/22 08:30 Consult: Nephrology Routine Consulting Provider: Denisse Johns Reason for Consult: hypokalemia EMERGENT Consult: No MD Notified: Yes Date Notified: 09/06/22 Time Notified: 10:13 Method of Notification: Answering Service 09/09/22 11:03 Consult: Vascular Surgery Routine Consulting Provider: Arden Love Reason for Consult: multiple DVT in R arm EMERGENT Consult: No MD Notified: Yes Date Notified: 09/09/22 Time Notified: 11:05 Method of Notification: Text Reason For Visit: HYPOKALEMIA Diagnosis Discharge Diagnosis (1) Hypokalemia: Status: Acute Code(s): E87.6 - Hypokalemia Plan Patient is a 62-year-old female admitted with increasing generalized weakness. Diagnosed with acute cystitis 1. Acute cystitis with Pseudomonas ? Patient started on cefepime switched to Levaquin ? 09/10/2022 remains on Levaquin 2. Severe hypokalemia ? Corrected per protocol ? 09/10/2022 additional Kayexalate given by nephrology. 3 Multiple renal calculi with mild bilateral hydronephrosis -Has bilateral ureteral stents in place, there is a 5 mm distal ureteral calculus on the right side with mild hydronephrosis and multiple left renal calculi with large UVJ calculus and mild left hydronephrosis with ureteral stent in place. 4. EDWINA on CKD stage IIIb -Patient is on Furosemide held management IV fluid with monitoring of electrolytes ordered patient improving with conservative management. Creatinine improving with conservative measures 5.? Multiple sclerosis with chronic bilateral lower extremity weakness.? Patient is bedbound.? Due to consult was placed PT and OT and social services analyst to assist with discharge planning 6.? Diabetes mellitus type II complications including peripheral neuropathy -patient's oral hypoglycemics held. Placed on long acting insulin, Accu-Cheks a.c. and at bedtime and covered with sliding scale insulin 7.? Dyslipidemia -Patient is on statin therapy, continued at home dose 8.? Hypothyroidism - Patient is on levothyroxine home dose continued 9.? Depression with anxiety ? Patient is on duloxetine did continue 10.? Class II obesity with BMI of 39 ? Patient with multiple sclerosis complicates effort regarding weight loss. Patient is on Ozempic 11. pressure injury right ischial area -Wound care nurse is seeing patient 12. Hypoglycemia Secondary to be glimepiride. Monitoring with Accu-Cheks with offending medication held 13 . Swelling of left forearm and wrist ? Ordered both arterial and venous duplex to rule out arterial occlusion and DVT ?09/10/2022. Venous duplex demonstrated acute DVT in the left axillary vein, brachial vein and radial vein as well as acute superficial vein thrombosis in the left cephalic and basilic vein. Patient started on heparin drip. Patient was seen in consultation by Dr. Arden Love with vascular surgery ? 09/11/2022;Patient remains on heparin plan is to discontinue and start patient on apixaban. 14. Physical deconditioning - Requested for PT OT eval and social services analyst to assist with discharge planning Time spent in the patient's overall evaluation,decision-making process, review of diagnostic data, adjustment of management, discussion with other providers, nursing nursing and ancillary staff involved in patient's care documentation,35 minutes Medications at Discharge Home Medications levothyroxine 50 mcg tablet (Synthroid) 50 mcg PO DAILY thyroid 12/21/19 duloxetine 60 mg capsule,delayed release 60 mg PO BID unsure #180 caps 06/30/21 atorvastatin 80 mg tablet 80 mg PO DAILY cholesterol 12/03/21 esomeprazole magnesium 40 mg capsule,delayed release 40 mg PO DAILY stomach 12/03/21 furosemide 40 mg tablet 80 mg PO BREAKFAST fluid 12/03/21 metformin 1,000 mg tablet 1,000 mg PO BID DM 12/03/21 oxycodone-acetaminophen 5 mg-325 mg tablet 1 tab PO TID PRN MS 12/03/21 pregabalin 75 mg capsule 75 mg PO BID pain 12/03/21 semaglutide 1 mg/dose (4 mg/3 mL) subcutaneous pen injector (Ozempic) 1 mg subcut QWEEK dm 12/03/21 buspirone 5 mg tablet 5 mg PO BID pt unsure #60 tabs 02/04/22 cholecalciferol (vitamin D3) 25 mcg (1,000 unit) tablet (Vitamin D3) 25 mcg PO BID supplement 02/04/22 ondansetron 4 mg disintegrating tablet 4 mg PO Q4H PRN PRN Nausea #10 tabs 06/09/22 baclofen 10 mg tablet 10 mg PO Q6H PRN PRN Muscle Spasm 06/12/22 midodrine 10 mg tablet 10 mg PO BID Check with primary doctor 08/11/22 apixaban 5 mg (74 tabs) tablets in a dose pack 5 mg PO BID #74 tabs 09/11/22 insulin degludec 200 unit/mL (3 mL) subcutaneous pen (Tresiba FlexTouch U-200 insulin) 20 unit (0.1 mL) subcut QHS dm #9 mL 09/11/22 levofloxacin 250 mg tablet 250 mg PO DAILY@0600 #5 tabs 09/11/22 Hospital Course Summary of Care Provided Minutes Spent on Discharge: 35 Physical Exam Narrative GENERAL: cooperative HEENT: Atraumatic; normocephalic EYES; Anicteric, Normal Conjunctiva NECK; supple, normal thyroid, RESPIRATORY: Diminished to auscultation CARDIOVASCULAR:? Regular S1 S2, GI:? soft, normoactive bowel sounds, : No Renal angle tenderness; EXTREMITIES: Left forearm and wrist cool to touch and swelling MUSCULOSKELETAL:? no muscle wasting Skin: As above Psych: Cooperative Weight / BMI Weight Weight: 83.1 kg Body Mass Index (BMI) 38.2 ABG / Lab / Microbiology Data 09/09/22 12:03 09/11/22 01:55 Laboratory: Laboratory Results - last 24 hr 09/09/22 12:03: Diff Path Review Reviewed 09/10/22 11:48: POC Glucose 236 H 09/10/22 11:50: APTT 45.2 H 09/10/22 16:50: POC Glucose 190 H 09/10/22 19:45: APTT 63.6 H 09/10/22 21:22: POC Glucose 136 H 09/11/22 01:55: APTT 58.8 H, Sodium 139, Potassium 3.8, Chloride 115 H, Carbon Dioxide 10.0 L, BUN 16, Creatinine 1.22 H, Estim Creat Clear Calc 64.33, Est GFR (MDRD) Af Amer 58 L, Est GFR (MDRD) Non-Af 48 L, BUN/Creatinine Ratio 13.1, Glucose 125 H, Calcium 7.8 L, Phosphorus 2.2 L, Albumin 1.9 L 09/11/22 06:42: POC Glucose 105 09/11/22 09:23: APTT 33.3 Microbiology: Microbiology 09/05/22 18:30 Blood Culture (Wb) - Anticubital Left Blood Culture - Final No growth in 5 days. 09/05/22 18:50 Blood Culture (Wb) - Anticubital Right Blood Culture - Final No growth in 5 days. 09/05/22 19:37 Urine, Clean Catch Urine Culture - Final Pseudomonas aeruginosa Citrobacter freundii 09/06/22 19:00 Stool Enteric Bacteriology - Final 09/06/22 Unknown Stool C. difficile DNA Amplification - Final 09/06/22 Unknown Stool Stool Occult Blood (JULIANNA) - Final Occult Blood Positive D/C Instructions Discharge Diet: 2000 Calorie Control Diet Discharge Activity: Return to Normal Activity Call your doctor if you observe: Fever of 101 or Higher, Shortness of breath, Fainting spells and Chest pain Meaningful Use Info Meaningful Use Diagnoses (Choose all that apply): None applicable Discharge Plan Admission Admit Date/Time: 09/05/22 21:23 Attending Provider: Ahsan Iverson Primary Care Provider: YG BUNCH Consulting Providers: Vaughn Villagran; Denisse Johns; Edgar Nice; Arden Love Discharge Orders/Prescriptions Prescriptions: New levofloxacin 250 mg Tablet 250 mg PO DAILY@0600 Qty: 5 0RF apixaban 5 mg (74 tabs) tablets,dose pack 5 mg PO BID Qty: 74 0RF Continued levothyroxine [Synthroid] 50 mcg tablet 50 mcg PO DAILY buspirone 5 mg tablet 5 mg PO BID Qty: 60 5RF cholecalciferol (vitamin D3) [Vitamin D3] 25 mcg (1,000 unit) tablet 25 mcg PO BID furosemide 40 mg tablet 80 mg PO BREAKFAST Patient Comments: TAKE 2 TABLETS EVERY MORNING atorvastatin 80 mg tablet 80 mg PO DAILY Patient Comments: TAKE 1 TABLET BY MOUTH DAILY oxycodone-acetaminophen 5-325 mg tablet 1 tab PO TID PRN (Reason: MS ) Patient Comments: Take one (1) tablet by mouth three times a day, as needed for multiple sclerosis contractures PALLIATIVE PATIENT metformin 1,000 mg tablet 1,000 mg PO BID Patient Comments: TAKE 1 TABLET TWICE DAILY esomeprazole magnesium 40 mg capsule,delayed release(DR/EC) 40 mg PO DAILY Patient Comments: TAKE 1 CAPSULE EVERY DAY pregabalin 75 mg capsule 75 mg PO BID Patient Comments: Take 1 capsule by mouth twice a day Palliative patient Ozempic 1 mg/dose (4 mg/3 mL) pen injector 1 mg SUBCUT QWEEK Patient Comments: INJECT 1mg under the skin EVERY week FOR 90 DAYS ondansetron 4 mg tablet,disintegrating 4 mg PO Q4H PRN PRN (Reason: Nausea) Qty: 10 0RF baclofen 10 mg tablet 10 mg PO Q6H PRN PRN (Reason: Muscle Spasm) midodrine 10 mg tablet 10 mg PO BID duloxetine 60 mg capsule,delayed release(DR/EC) 60 mg PO BID Qty: 180 0RF Changed insulin degludec [Tresiba FlexTouch U-200] 200 unit/mL (3 mL) insulin pen 20 unit SUBCUT QHS Qty: 9 0RF Patient Comments: Inject 50 units sub-q every night at bedtime. Discontinued glimepiride 4 mg tablet 4 mg PO BID linezolid 600 mg tablet 600 mg PO BID Qty: 14 0RF Rx Instructions: Ok to give with duloxetine and buspar for short course. cefdinir 300 mg capsule 300 mg PO BID 10 Days Qty: 20 0RF metronidazole 500 mg tablet 500 mg PO Q8H 7 Days Qty: 21 0RF Referrals / Follow Up: YG BUNCH [employer] MAINTENANCE TECHNICIAN-C [Primary Care Provider] - Within 1 Week Disposition Disposition (needs filled in before D/C Order can be placed): Home, Self Care Charges/Coding Visit Charges Inpatient E&M: 67607 Disch Hosp >30min
[2022-09-11 10:09] VITALS: BP 95/50; PULSE 99; RESP 18; TEMP 36.6; O2SAT 100
--- NOTE | 2022-09-11 11:03 | PHA.DC.MC.R ---
Pharmacy [facility] has performed discharge medication reconciliation and counseling for this patient. The patient's discharge medication list was reviewed for discrepancies and discrepancies were resolved. The patient was counseled on the following discharge medications and changes in medications for homegoing were reviewed. 1. ELIQUIS: 10 PO BID X7 DAYS THEN 5MG PO BID THEREAFTER 2. LEVAQUIN The Reason for Use, instructions for use, and potential side effects were reviewed for all new medications. The patient's questions regarding all of their medications were answered. The patient was able to verbally demonstrate an understanding of their discharge medications. The patient's discharge medication list was reviewed for discrepancies and discrepancies were resolved. Patient counselled by Tacos Conley PharmD Candidate Medications at Discharge Home Medications levothyroxine 50 mcg tablet (Synthroid) 50 mcg PO DAILY thyroid 12/21/19 duloxetine 60 mg capsule,delayed release 60 mg PO BID unsure #180 caps 06/30/21 atorvastatin 80 mg tablet 80 mg PO DAILY cholesterol 12/03/21 esomeprazole magnesium 40 mg capsule,delayed release 40 mg PO DAILY stomach 12/03/21 furosemide 40 mg tablet 80 mg PO BREAKFAST fluid 12/03/21 metformin 1,000 mg tablet 1,000 mg PO BID DM 12/03/21 oxycodone-acetaminophen 5 mg-325 mg tablet 1 tab PO TID PRN MS 12/03/21 pregabalin 75 mg capsule 75 mg PO BID pain 12/03/21 semaglutide 1 mg/dose (4 mg/3 mL) subcutaneous pen injector (Ozempic) 1 mg subcut QWEEK dm 12/03/21 buspirone 5 mg tablet 5 mg PO BID pt unsure #60 tabs 02/04/22 cholecalciferol (vitamin D3) 25 mcg (1,000 unit) tablet (Vitamin D3) 25 mcg PO BID supplement 02/04/22 ondansetron 4 mg disintegrating tablet 4 mg PO Q4H PRN PRN Nausea #10 tabs 06/09/22 baclofen 10 mg tablet 10 mg PO Q6H PRN PRN Muscle Spasm 06/12/22 midodrine 10 mg tablet 10 mg PO BID Check with primary doctor 08/11/22 apixaban 5 mg (74 tabs) tablets in a dose pack 5 mg PO BID #74 tabs 07/14/23 insulin degludec 200 unit/mL (3 mL) subcutaneous pen (Tresiba FlexTouch U-200 insulin) 20 unit (0.1 mL) subcut QHS dm #9 mL 09/11/22 levofloxacin 250 mg tablet 250 mg PO DAILY@0600 #5 tabs 09/11/22
[2022-09-11 11:26] LABS: Bedside Glucose 127 mg/dL (74-106)
--- NOTE | 2022-09-11 11:52 | CASEMGMT ---
JANELL faxed d/c instructions to Wendi Browne, patient's case fitter at [facility]. Patient does get home delivered meals through [facility] by [employer] (14 per week). Per wound RN patient's wound on her backside is healing nicely. APS has been called on past visits, however they will not get involved as patient is alert and oriented and wants to be home. 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
--- NOTE | 2022-09-11 13:34 | CASEMGMT ---
Addendum entered by Wendi Purdy 09/11/22 13:52: Patient states she will need cot transport setup to go home. TRUNG NICHOLSON updated charge nurse. Original Note: TRUNG NICHOLSON updated [facility] that patient will be discharging today. Planned start of care date is 09/13/22. TRUNG NICHOLSON updated the patient's discharge plan. Patient is discharging on [facility], [facility] called, no copay. TRUNG NICHOLSON updated patient regarding HHC. Patient had no further questions or concerns at this time.
[2022-09-11 17:43] LABS: Bedside Glucose 123 mg/dL (74-106)
[2022-09-11 22:33] LABS: Bedside Glucose 126 mg/dL (74-106)
== END 2022-09-11 22:30 | disposition home health service (06) | DRG 698 ==
LOC: ED 21:16 → PCU 22:04
PROVIDERS: Family Medicine; Internal Medicine; Nurse Practitioner Adult Health; Admitting Provider Hospitalist; Emergency Provider Emergency Medicine; PCP Nurse Practitioner Family; Visit Provider Internal Medicine
DX: T83.511A Infection and inflammatory reaction due to indwelling urethral catheter, initial encounter (principal); R53.2 Functional quadriplegia; I82.622 Acute embolism and thrombosis of deep veins of left upper extremity; E87.1 Hypo-osmolality and hyponatremia; N13.6 Pyonephrosis; N17.9 Acute kidney failure, unspecified; I82.A12 Acute embolism and thrombosis of left axillary vein; I82.612 Acute embolism and thrombosis of superficial veins of left upper extremity; E11.649 Type 2 diabetes mellitus with hypoglycemia without coma; E83.39 Other disorders of phosphorus metabolism; E11.22 Type 2 diabetes mellitus with diabetic chronic kidney disease; E11.42 Type 2 diabetes mellitus with diabetic polyneuropathy; L89.319 Pressure ulcer of right buttock, unspecified stage; G35 Multiple sclerosis; N18.32 Chronic kidney disease, stage 3b; Z79.4 Long term (current) use of insulin; E87.6 Hypokalemia; E03.9 Hypothyroidism, unspecified; F32.A Depression, unspecified; I12.9 Hypertensive chronic kidney disease with stage 1 through stage 4 chronic kidney disease, or unspecified chronic kidney disease; E78.5 Hyperlipidemia, unspecified; F41.9 Anxiety disorder, unspecified; E86.1 Hypovolemia; B96.5 Pseudomonas (aeruginosa) (mallei) (pseudomallei) as the cause of diseases classified elsewhere; X58.XXXA Exposure to other specified factors, initial encounter; M62.81 Muscle weakness (generalized); E66.9 Obesity, unspecified; Z68.39 Body mass index [BMI] 39.0-39.9, adult; Z74.01 Bed confinement status; Z79.01 Long term (current) use of anticoagulants; Z79.84 Long term (current) use of oral hypoglycemic drugs; Z79.899 Other long term (current) drug therapy
CPT/HCPCS: 36415; 36569; 51702; 71045; 80048; 80053; 80069; 81001; 82274; 82947; 82962; 83605; 83735; 84100; 84132; 84133; 85014; 85018; 85025; 85610; 85730; 87040; 87077; 87086; 87088; 87184; 87186; 87493; 87506; 92526; 93005; 93931; 93971; 94668; 97802; 97803; 99285; J7030; J7040; J7050; A4216

== ENCOUNTER → 2023-12-03 | Outpatient (CLI) | payer MEDICARE, MEDICAID, SELFPAY | END | disposition home or self-care (01) | PROVIDERS: PCP Nurse Practitioner Family; Visit Provider Psychiatry & Neurology Neurology | DX: G35 Multiple sclerosis (principal) | CPT/HCPCS: 36415 ==

== ENCOUNTER 2024-01-07 13:04 | Inpatient (IN) | payer MEDICARE, MEDICAID, SELFPAY ==
[2024-01-07] VITALS (13 sets, daily range): BP systolic 86–113; BP diastolic 51–83; PULSE 18–100; RESP 12–22; TEMP 35.9–36.8; O2SAT 89–99; BMI 36.5; BMI 33.7
--- NOTE | 2024-01-07 13:32 | EDS_ITS ---
HPI History of Present Illness Chief Complaint: General Illness [facility] Medical History Diabetes Current use of insulin Hoarseness Acute on chronic urinary retention Neurogenic bladder Vitamin A deficiency Kidney stones Family history of MS (multiple sclerosis) Hyponatremia Muscle spasm Bedbound Anxiety Depression Bilateral knee pain Polyneuropathy Fatigue Multiple sclerosis delivery delivered History of multiple sclerosis Morbid obesity MDRO (multiple drug resistant organisms) resistance Lymphedema Type II diabetes mellitus Home Medications ?Medication ?Instructions ?Recorded ?Last Taken ?Type levothyroxine 50 mcg tablet 50 mcg PO DAILY thyroid 12/21/19 12/02/21 History (Synthroid) duloxetine 60 mg capsule,delayed 60 mg PO BID unsure #180 caps 06/30/21 12/02/21 Rx release atorvastatin 80 mg tablet 80 mg PO DAILY cholesterol 12/03/21 12/02/21 History esomeprazole magnesium 40 mg 40 mg PO DAILY stomach 12/03/21 12/02/21 History capsule,delayed release furosemide 40 mg tablet 80 mg PO BREAKFAST fluid 12/03/21 12/02/21 History metformin 1,000 mg tablet 1,000 mg PO BID DM 12/03/21 12/02/21 History oxycodone-acetaminophen 5 mg-325 1 tab PO TID PRN MS 12/03/21 12/03/21 History mg tablet semaglutide 1 mg/dose (4 mg/3 mL) 1 mg subcut QWEEK dm 12/03/21 08/29/22 History subcutaneous pen injector (Ozempic) buspirone 5 mg tablet 5 mg PO BID pt unsure #60 tabs 02/04/22 Unknown Rx ondansetron 4 mg disintegrating 4 mg PO Q4H PRN PRN Nausea #10 tabs 06/09/22 Unknown Rx tablet midodrine 10 mg tablet 10 mg PO BID Check with primary 08/11/22 Unknown History doctor insulin degludec 200 unit/mL (3 20 unit (0.1 mL) subcut QHS dm #9 09/11/22 12/02/21 Rx mL) subcutaneous pen (Tresiba mL FlexTouch U-200 insulin) levofloxacin 250 mg tablet 250 mg PO DAILY@0600 #5 tabs 09/11/22 Unknown Rx acetaminophen 650 mg 650 mg PO Q12H 02/09/23 Unknown History tablet,extended release (Tylenol Arthritis Pain) baclofen 10 mg tablet 10 mg PO BID 02/09/23 Unknown History baclofen 10 mg tablet 10 mg PO DAILY PRN Muscle Spasm 02/09/23 Unknown History ferrous sulfate 325 mg (65 mg 325 mg PO DAILY 02/09/23 Unknown History iron) tablet (FeroSul) glimepiride 4 mg tablet 4 mg PO BID 02/09/23 Unknown History lorazepam 0.5 mg tablet (Ativan) 0.5 mg PO DAILY PRN 02/09/23 Unknown History sennosides 8.6 mg tablet (Senna 8.6 mg PO DAILY PRN 02/09/23 Unknown History Lax) ocrelizumab 30 mg/mL intravenous See Rx Instructions .Route 12/26/23 Unknown Rx solution (Ocrevus) .COMPLEX #10 mL Allergy/AdvReac Type Severity Reaction Status Date / Time ampicillin (From Unasyn) Allergy Severe Rash Verified 01/07/24 13:05 sulbactam (From Unasyn) Allergy Severe Rash Verified 01/07/24 13:05 ciprofloxacin (From Cipro) Allergy Hives Verified 01/07/24 13:05 ciprofloxacin HCl (From Allergy Hives Verified 01/07/24 13:05 Cipro) clindamycin HCl (From Allergy Hives Verified 02/09/23 08:49 Cleocin) clindamycin palmitate HCl Allergy Hives Verified 01/07/24 13:05 (From Cleocin) clindamycin phosphate (From Allergy Hives Verified 01/07/24 13:05 Cleocin) morphine Allergy Hives Verified 01/07/24 13:05 sulfamethoxazole (From Allergy Hives Verified 01/07/24 13:05 Bactrim) trimethoprim (From Bactrim) Allergy Hives Verified 01/07/24 13:05 hydromorphone HCl (From AdvReac messes Verified 01/07/24 13:05 Dilaudid) with my brain Family History Unknown Multiple sclerosis 1st cousin Father Cancer forensic medical examiner, black lung, Lung CA. Mother Heart disease Diabetes Heart failure Surgical History H/O hernia repair History of cholecystectomy Social History household members: spouse Smoking Status: Never smoker alcohol intake: never substance use type: does not use EXAM Physical Exam Const Vital Signs: 01/07/24 13:05 01/07/24 13:11 01/07/24 15:05 Temperature 98.3 F Temperature Source Temporal Pulse Rate 100 88 Respiratory Rate 16 12 Respiratory Effort Normal Respiratory Pattern Normal Blood Pressure 106/83 H 105/59 L Blood Pressure Mean 90 74 Pulse Ox 98 89 Oxygen Delivery Method Room Air Room Air [facility] Narrative Medical decision making narrative: HISTORY OF PRESENT ILLNESS: 63-year-old female with history of multiple sclerosis, CKD, hyperlipidemia, hypothyroidism, depression, obesity, chronic pressure injury, T2DM, neurogenic bladder to the right ischial area, presents from home. Currently enrolled in home hospice. chronically bed bound. From home per [facility]. Notes pain is not controlled at home. Currently Full Code. Notes having trouble with personal care at home. Notes concern for pressure ulcers. Per the patient's son who accompanies her the patient been more confused recently. Having a hard time controlling her pain. Is been on multiple different chronic pain medications including oxycodone and methadone. He notes this medicine sometimes causes the patient be very confused. Notes there is a point time within the last week or so the patient slept for 2 days straight. He notes he just had a new hospice company arranged. Per the patient she has pain all over. REVIEW OF SYSTEMS: Pertinent positives: Pain all over, confusion Pertinent negatives: Fever, vomiting, chest pain PHYSICAL EXAM: Nursing triage notes reviewed, Vital signs reviewed Constitutional: please see [facility] HENT: MMM Eyes: Pupils equal round and reactive to light, Extraocular muscles intact Neck: No stridor, no JVD, full neck ROM Lungs: Clear to auscultation, No wheezing or rales. No increased work of breathing, no conversational dyspnea, no accessory muscle use, no nasal flaring. No respiratory distress noted Heart: Regular rate and rhythm, No murmurs, No rubs and No gallops, 2+ distal pulses (radial, femoral, posterior tibial) in all extremities Abdomen: Soft, there is no tenderness, rigidity, rebound or guarding, no obvious peritoneal signs, no palpable pulsatile abdominal masses, no auscultated abdominal bruit : No CVAT, genital exam performed security researcher in room. There is a foul smell noted to the area. There is no crepitus noted to the perineum there is a Valenzuela catheter in the vagina there is some erythema surrounding these tissues, there is weeping of fluid. No obvious drainage. Valenzuela catheter with yellow thick appearing urine which appears to be infected. Extremities: No edema Neuro: No focal neurological deficits, cranial nerves II through XII intact, 5/5 strength in all extremities. Intact sensation to light touch in all extremities, 2+ reflexes bilateral patella tendons. Normal gait. No ataxia. Skin: Diffuse erythema noted to the mid back down to the mid thigh, there are multiple areas of sacral decubitus ulceration including over bilateral posterior greater trochanters, over the sacrum, these wounds are weeping, purulent, foul smelling and erythematous. Patient has exquisite tenderness to palpation MEDICAL DECISION MAKING: Chief Complaint: Pain all over External records reviewed: Allergies, problem list, vital signs, current medications reviewed. Reviewed prior hospitalizations. Factors affecting care: As per HPI Social determinants of health: Bedbound History obtained from others: Spoke to [facility] ([facility]) Consults: Internal medicine MDM Narrative: Patient was initially hemodynamically stable, afebrile and nontoxic-appearing. Was in significant pain. Right upper extremity contractures. Significant muscle atrophy and debility. Exam terms of patient's back showed evidence of being uncapped, poor home care as patient had significant issues with stasis changes, pelvic and hip ulcerations consistent with being bedbound and not being rotated frequently. Her urine appeared to be grossly infected. I considered the following differential diagnosis: UTI, sepsis, cellulitis, rhabdomyolysis, pneumonia, debility Given patient's initial signs of infection, elevated heart rate elevated white blood cell ordered blood cultures, urine urine culture. Gave empiric broad- spectrum antibiotics given signs of infection on initial exam Initially treat the patient with IV Toradol and IV fentanyl for pain control I gave vancomycin and cefepime after cultures were obtained. Patient's Valenzuela was changed. ALL IMAGES (IF OBTAINED) HAVE BEEN PERSONALLY REVIEWED AND INTERPRETED BY MYSELF. I have personally reviewed the patient's chest x-ray. Chest x-ray is unremarkable for pulmonary edema, pneumothorax, pneumonia or focal cardiopulmonary abnormality. CBC with leukocytosis, suggestive of systemic inflammation, no anemia or thrombocytopenia BMP with hyponatremia, severe metabolic acidosis, renal failure High-sensitivity troponin is negative, no evidence of myocardial ischemia LFTs show no evidence of hepatobiliary pathology. CK within normal limits no evidence of rhabdomyolysis High-sensitivity troponin is negative, no evidence of myocardial ischemia EKG with normal sinus rhythm, normal axis, normal intervals, no STEMI CT scan of the head pending at this time. CT brain negative. CT scan abdomen pelvis pending at this time. CT abdomen pelvis shows hydronephrosis and bilateral ureteral stent calcifications and nephrolithiasis Lactate pending The synthesis of the patient's history, physical exam, labs images suggest infected sacral and greater trochanter decubitus ulcers. This is likely secondary to poor positioning and lack of consistent care given her bedbound state. Gave fluids, broad-spectrum antibiotics and will admit to await blood and urine cultures. Discussed with hospitalist. The patient and/or family, caregivers express understanding. The patient and/or family, caregivers agrees with the plan. Shared decision making: I will have a discussion with the patient and or visitors regarding risk/benefits of further testing or admission. They will be made aware of of the risk/benefits inherent in this decision they will be given the opportunity to voice understanding. Total critical care time today provided was at least 0 minutes. This excludes separately billable procedures. Critical care time (if documented) is secondary to the patient having high probability of clinically significant/life threatening deterioration in the patient's condition which required my urgent intervention. Impression: 1. Generalized pain 2. Leukocytosis 3. Hyponatremia 4. Metabolic acidosis 5. Acute kidney failure 6. Infected sacral decubitus ulcers 7. Nephrolithiasis Dispo: Admit Signed out PM physician pending report to hospitalist. This note was generated with [employer] dictation software. It may contain incorrect words, spelling, and punctuation that were not noted in review of the chart prior to signing. Lab Data Labs: Laboratory Results - last 24 hr 01/07/24 14:35 WBC 14.1 H RBC 4.18 L Hgb 12.6 Hct 40.0 MCV 95.7 MCH 30.1 MCHC 31.5 L RDW Std Deviation 50.6 H RDW Coeff of Mele 14.5 Plt Count 499 H MPV 9.2 Discharge Plan Triage Chief Complaint: General Illness ED Provider: Irvin Berman Dx/Rx/DC Orders Prescriptions: No Action levothyroxine [Synthroid] 50 mcg tablet 50 mcg PO DAILY buspirone 5 mg tablet 5 mg PO BID Qty: 60 5RF baclofen 10 mg tablet 10 mg PO BID Rx Instructions: Take one tab BID PO for MS muscle spasms lorazepam [Ativan] 0.5 mg tablet 0.5 mg PO DAILY PRN Rx Instructions: Take every 4 hours as needed for Anxiety/restlessness ferrous sulfate [FeroSul] 325 mg (65 mg iron) tablet 325 mg PO DAILY glimepiride 4 mg tablet 4 mg PO BID sennosides [Senna Lax] 8.6 mg tablet 8.6 mg PO DAILY PRN Rx Instructions: BID as needed for constipation acetaminophen [Tylenol Arthritis Pain] 650 mg tablet extended release 650 mg PO Q12H furosemide 40 mg tablet 80 mg PO BREAKFAST Patient Comments: TAKE 2 TABLETS EVERY MORNING atorvastatin 80 mg tablet 80 mg PO DAILY Patient Comments: TAKE 1 TABLET BY MOUTH DAILY oxycodone-acetaminophen 5-325 mg tablet 1 tab PO TID PRN (Reason: MS ) Patient Comments: Take one (1) tablet by mouth three times a day, as needed for multiple sclerosis contractures PALLIATIVE PATIENT metformin 1,000 mg tablet 1,000 mg PO BID Patient Comments: TAKE 1 TABLET TWICE DAILY esomeprazole magnesium 40 mg capsule,delayed release(DR/EC) 40 mg PO DAILY Patient Comments: TAKE 1 CAPSULE EVERY DAY Ozempic 1 mg/dose (4 mg/3 mL) pen injector 1 mg SUBCUT QWEEK Patient Comments: INJECT 1mg under the skin EVERY week FOR 90 DAYS ondansetron 4 mg tablet,disintegrating 4 mg PO Q4H PRN PRN (Reason: Nausea) Qty: 10 0RF baclofen 10 mg tablet 10 mg PO DAILY PRN (Reason: Muscle Spasm) Rx Instructions: Take 1 tab PRN 1 time daily as needed for muscle spasms PRN midodrine 10 mg tablet 10 mg PO BID levofloxacin 250 mg Tablet 250 mg PO DAILY@0600 Qty: 5 0RF insulin degludec [Tresiba FlexTouch U-200] 200 unit/mL (3 mL) insulin pen 20 unit SUBCUT QHS Qty: 9 0RF Patient Comments: Inject 50 units sub-q every night at bedtime. duloxetine 60 mg capsule,delayed release(DR/EC) 60 mg PO BID Qty: 180 0RF Ocrevus 30 mg/mL solution See Rx Instructions .ROUTE .COMPLEX Qty: 10 1RF Rx Instructions: 300mg (10ml) IV over 4 hours every 2 weeks x 2 doses. Primary Care Provider: YG BUNCH Referrals: YG BUNCH, ELECTRONIC DESIGN ENGINEER-C [Primary Care Provider] - Print Language: Macedonian
--- NOTE | 2024-01-07 13:51 | RAD_ITS ---
STUDY: X-RAY CHEST REASON FOR EXAM: Female, 63 years old. confusion TECHNIQUE: Single AP portable view of the chest. COMPARISON: September 05, 2022 FINDINGS: No visualized consolidation. The lungs are clear and expanded. There is no demonstrated pleural abnormality. Normal size heart. Normal mediastinum and richar. Normal visualized pulmonary arteries. There is atherosclerotic calcification of the aortic arch with tortuosity. There are diffuse degenerative changes of the visualized thoracic spine. Normal visualized ribs, clavicles, and shoulders. There is no demonstrated abnormality of the visualized soft tissue structures of the upper abdomen. RAD/Chest 1 View (Portable) IMPRESSION: Degenerative changes, as described above. No demonstrated acute cardiopulmonary process. Electronically Signed: Eduard Jarquin MD at 15:49 EST ,
--- NOTE | 2024-01-07 13:51 | CT_ITS ---
STUDY: CT BRAIN WITHOUT CONTRAST REASON FOR EXAM: Female, 63 years old. Confusion RADIATION DOSAGE (If Supplied By Facility): CTDIvol = ( 44.99 ) mGy, DLP = ( 812.98 ) mGycm TECHNIQUE: Transaxial CT imaging of the brain was performed without administration of intravenous contrast material. Individualized dose optimization techniques were used for this CT. COMPARISON: Head CT dated June 18, 2022 FINDINGS: No visualized extra-axial fluid collection or midline shift or hydrocephalus. Normal soft tissue structures. Normal calvarium. There is mild cerebral atrophy with widening of the extra-axial spaces and ventricular dilatation. There are areas of decreased attenuation within the white matter tracts of the supratentorial brain, consistent with microvascular disease changes. Normal basal ganglia and thalami. Normal brainstem. Normal cerebellum. There is no intracranial hemorrhage. There are no findings of an acute ischemic infarction. Normal visualized paranasal sinuses. CT/Brain/Head without Contrast IMPRESSION: 1. Chronic involutional changes of the brain. Electronically Signed: Eduard Jarquin MD at 15:47 EST ,
--- NOTE | 2024-01-07 13:52 | EKG12_ITS ---
Test Reason : CP Blood Pressure : */* mmHG Vent. Rate : 93 BPM Atrial Rate : 93 BPM P-R Int : 146 ms QRS Dur : 78 ms QT Int : 324 ms P-R-T Axes : 47 74 29 degrees QTcB Int : 402 ms Normal sinus rhythm Anteroseptal infarct (cited on or before 10-Aug-2022) Abnormal ECG Confirmed by NEREIDA MARTINES, LLUVIA ([id number]), graphics editor ALLAN MARVIN ([id number]) on 01/10/2024 10:30:23 AM Referred By: RAHEL Confirmed By: LLUVIA PADRON MD
[2024-01-07] MEDS: Ketorolac 15 MG/ML Vial IV (14:52)
[2024-01-07] MEDS: fentaNYL 100 MCG/2 ML Ampul 50 MCG IV (14:52)
[2024-01-07] MEDS: Ondansetron 4 MG/2 ML Vial IV (14:53)
[2024-01-07] MEDS: Cefepime HCl 2 GM in 0.9% Normal Saline (100mL MB+) 100 ML IV (14:53)
[2024-01-07 15:04] LABS: Hemoglobin 12.6 g/dL (12.0-15.0); Mean Corp Hgb Conc 31.5 g/dL (32-36); Mean Corpuscular Hgb 30.1 pg (27.0-32.0); Mean Corpuscular Volume 95.7 fL (81-99); Mean Platelet Vol. 9.2 fl (6.2-12.0); Platelet Count 499 K/mm3 (150-450); RBC Distribution Width CV 14.5 % (11.6-14.6); RBC Distribution Width SD 50.6 fl (35.1-43.9); Red Blood Count 4.18 M/mm3 (4.2-5.4); White Blood Count 14.1 K/mm3 (4.4-11.0)
--- NOTE | 2024-01-07 15:20 | CT_ITS ---
STUDY: CT ABDOMEN AND PELVIS WITHOUT CONTRAST REASON FOR EXAM: Female, 63 years old.pelvic pain , hx KS, DM, neurogic bladder, MS, vanessa, hernia repair, B kidney stents RADIATION DOSAGE (If Supplied By Facility): CTDIvol = ( 12.67 ) mGy, DLP = ( 592.04 ) mGycm TECHNIQUE: Transaxial images were obtained from the dome of the diaphragm to the symphysis pubis without oral contrast, and without intravenous contrast. Sagittal and coronal images were reconstructed. Individualized dose optimization techniques were used for this CT. COMPARISON: None. FINDINGS: The visualized lung bases are unremarkable. The visualized portions of the heart are within normal limits. Normal liver. There is non-visualization of the gallbladder, which may be secondary to either contraction or a prior cholecystectomy. Normal spleen. Normal pancreas. Normal bilateral adrenal glands. Kidneys: Bilateral internal ureteral stents are present terminating in the bladder. The bladder is collapsed around a Valenzuela catheter. Numerous large staghorn calcifications in addition to some smaller scattered calyceal calcifications are present in both kidneys extending into the UPJs causing pelviectasis on the right without calyceal distention or hydronephrosis. Mild left hydronephrosis is present as well as moderate pelviectasis. Several small stones are seen around the proximal one third and middle one third region of the left ureteral stent. There is moderate atrophy of the right kidney. The largest staghorn calcification on the left is in the upper pole measuring 2.33 cm. Left internal ureteral lucrecia stent calcifications are also present. Normal visualized stomach. Normal small intestine. Normal colon. The appendix is visualized and appears normal. There is diffuse atherosclerotic calcification of the abdominal aorta with elongation and tortuosity, but without a demonstrated aneurysm. Normal inferior vena cava. Normal retroperitoneum. Normal urinary bladder. [Unremarkable uterus. Bilateral adnexal clips are present. Significant body wall edema/anasarca is present. Prior hernia repair with mesh and persistent but shallow umbilical hernia measuring 6.14 cm in width and 2.47 cm in depth. No incarceration of the bowel is demonstrated. There are diffuse degenerative changes of the visualized lumbar spine. CT/Abdomen/Pelvis without Cont IMPRESSION: 1. Significant bilateral kidney stones with internal ureteral stents bilaterally 2. Mild to moderate left hydronephrosis and pelviectasis with multiple small stones outside of the lumen of the stent within the ureter on both the left and right side and probable lucrecia-stent calcifications Electronically Signed: Eduard Jarquin MD at 16:05 EST ,
[2024-01-07 15:34] LABS: CPK Total, Creatine Kinase 72 U/L (26-192)
[2024-01-07 15:38] LABS: AST(SGOT) 10 U/L (15-37); Alanine Aminotransfer ALT/SGPT < 6 U/L (13-56); Albumin, Serum 2.1 g/dL (3.2-5.0); Alkaline Phosphatase 100 U/L (45-117); Anion Gap 15 (5-15); BUN 94 mg/dL (7-18); BUN/Creat Ratio 27.2 RATIO (10-20); Bilirubin, Direct 0.14 mg/dL (0.00-0.30); Calcium,Total 8.8 mg/dL (8.5-10.1); Chloride 103 mmol/L (98-107); Creatinine, Serum 3.46 mg/dL (0.55-1.02); EST Glomerular Filtration Rate 14 mL/min (>60); Est Glom Filt Rate - Afr Amer 17 mL/min (>60); Globulin 5.7 g/dL (2.2-4.2); Glucose 144 mg/dL (74-106); Lipase 21 U/L (13-75); Potassium 4.1 mmol/L (3.5-5.1); Protein, Total 7.8 g/dL (6.4-8.2); Sodium Level 132 mmol/L (136-145); Troponin-I HS 9 pg/mL (3.0-54.0)
[2024-01-07] MEDS: Vancomycin HCl 1,250 MG in 0.9% Normal Saline (250mL Bag) 250 ML 167 MG IV (15:41)
[2024-01-07 15:55] LABS: Bacteria 0 SEEN /hpf (None Seen); Mucous, Urine 0 SEEN /hpf (<or=2+); Red Blood Cells-Urine 0 SEEN /hpf (0-5); Squamous Epithelial Cells - UA 0 SEEN /hpf (5-10)
[2024-01-07 15:57] LABS: Color, Urine Yellow (Yellow); Glucose, Dipstick Normal (Normal); Ketone-Dipstick 5 mg/dl (Negative); Leukocyte Esterase-Dipstick 500 /ul (Negative); Nitrite-Dipstick Negative (Negative); Occult Blood-Urine 250 /ul (Negative); Protein-Dipstick 500 mg/dl (Negative); Urine Bilirubin Dipstick Negative (Negative); Urine Clarity Turbid (Clear); Urine Urobilinogen Normal (Normal)
[2024-01-07] MEDS: Lactated Ringers 1,000 ML 999 ML IV (16:00)
[2024-01-07 16:19] LABS: White Blood Cells >100 SEEN /hpf (0-5)
--- NOTE | 2024-01-07 17:13 | ED.RN ---
PHONE NUMBER FOR [facility] TO CONTACT [facility]S HOSPICE NURSE: [phone]
--- NOTE | 2024-01-07 17:33 | EX.ED.DYSGE1 ---
HPI History of Present Illness Chief Complaint: General Illness [facility] Medical History Diabetes Current use of insulin Hoarseness Acute on chronic urinary retention Neurogenic bladder Vitamin A deficiency Kidney stones Family history of MS (multiple sclerosis) Hyponatremia Muscle spasm Bedbound Anxiety Depression Bilateral knee pain Polyneuropathy Fatigue Multiple sclerosis delivery delivered History of multiple sclerosis Morbid obesity MDRO (multiple drug resistant organisms) resistance Lymphedema Type II diabetes mellitus Home Medications ?Medication ?Instructions ?Recorded ?Last Taken ?Type levothyroxine 50 mcg tablet 50 mcg PO DAILY thyroid 12/21/19 12/02/21 History (Synthroid) duloxetine 60 mg capsule,delayed 60 mg PO BID unsure #180 caps 06/30/21 12/02/21 Rx release atorvastatin 80 mg tablet 80 mg PO DAILY cholesterol 12/03/21 12/02/21 History esomeprazole magnesium 40 mg 40 mg PO DAILY stomach 12/03/21 12/02/21 History capsule,delayed release buspirone 5 mg tablet 5 mg PO BID pt unsure #60 tabs 02/04/22 Unknown Rx ondansetron 4 mg disintegrating 4 mg PO Q4H PRN PRN Nausea #10 tabs 06/09/22 Unknown Rx tablet acetaminophen 650 mg 650 mg PO Q12H 02/09/23 Unknown History tablet,extended release (Tylenol Arthritis Pain) baclofen 10 mg tablet 10 mg PO BID 02/09/23 Unknown History baclofen 10 mg tablet 10 mg PO DAILY PRN Muscle Spasm 02/09/23 Unknown History ferrous sulfate 325 mg (65 mg 325 mg PO DAILY 02/09/23 Unknown History iron) tablet (FeroSul) sennosides 8.6 mg tablet (Senna 8.6 mg PO DAILY PRN 02/09/23 Unknown History Lax) arginine 7 gram-glutam 7 1 packet PO BIDCM #0 ea 01/13/24 Unknown Rx gram-CaHMB 1.5 oouk-eimal-zu-min oral pwd pkt (Milad (with collagen)) cefdinir 300 mg capsule 300 mg PO DAILY #5 caps 01/13/24 Unknown Rx glimepiride 4 mg tablet 2 mg (1/2 x 4 mg) PO BID #1 TAB 01/13/24 Unknown Rx linezolid 600 mg tablet (Zyvox) 600 mg PO BID #10 tabs 01/13/24 Unknown Rx menthol 0.44 %-zinc oxide 20.6 % 1 applic topical TID #0 grams 01/13/24 Unknown Rx topical ointment (Calmoseptine) nystatin 100,000 unit/gram topical 1 applic topical TID #0 grams 01/13/24 Unknown Rx powder (Nyamyc) oxycodone 5 mg tablet 5 mg PO Q4H PRN PRN Pain Score 01/13/24 Unknown Rx 4-10 2 days #15 tabs sodium hypochlorite 0.25 % See Protocol topical DAILY #0 mL 01/13/24 Unknown Rx solution (HySept) lorazepam 1 mg tablet 1 mg PO Q4H PRN PRN anxiety 01/14/24 Unknown History Allergy/AdvReac Type Severity Reaction Status Date / Time ampicillin (From Unasyn) Allergy Severe Rash Verified 01/07/24 13:05 sulbactam (From Unasyn) Allergy Severe Rash Verified 01/07/24 13:05 ciprofloxacin (From Cipro) Allergy Hives Verified 01/07/24 13:05 ciprofloxacin HCl (From Allergy Hives Verified 01/07/24 13:05 Cipro) clindamycin HCl (From Allergy Hives Verified 02/09/23 08:49 Cleocin) clindamycin palmitate HCl Allergy Hives Verified 01/07/24 13:05 (From Cleocin) clindamycin phosphate (From Allergy Hives Verified 01/07/24 13:05 Cleocin) morphine Allergy Hives Verified 01/07/24 13:05 sulfamethoxazole (From Allergy Hives Verified 01/07/24 13:05 Bactrim) trimethoprim (From Bactrim) Allergy Hives Verified 01/07/24 13:05 hydromorphone HCl (From AdvReac messes Verified 01/07/24 13:05 Dilaudid) with my brain Family History Unknown Multiple sclerosis 1st cousin Father Cancer financial examiner, black lung, Lung CA. Mother Heart disease Diabetes Heart failure Surgical History H/O hernia repair History of cholecystectomy Social History household members: spouse Smoking Status: Never smoker alcohol intake: never substance use type: does not use EXAM Physical Exam Const Vital Signs: 01/07/24 13:05 01/07/24 13:11 01/07/24 15:05 Temperature 98.3 F Temperature Source Temporal Pulse Rate 100 88 Respiratory Rate 16 12 Respiratory Effort Normal Respiratory Pattern Normal Blood Pressure 106/83 H 105/59 L Blood Pressure Mean 90 74 Pulse Ox 98 89 Oxygen Delivery Method Room Air Room Air 01/07/24 17:00 Temperature Temperature Source Pulse Rate 73 Respiratory Rate 13 Respiratory Effort Respiratory Pattern Blood Pressure 91/70 Blood Pressure Mean 77 Pulse Ox 97 Oxygen Delivery Method Room Air MDM MDM Lab Data Labs: Laboratory Results - last 24 hr 01/07/24 01/07/24 14:35 15:44 WBC 14.1 H RBC 4.18 L Hgb 12.6 Hct 40.0 MCV 95.7 MCH 30.1 MCHC 31.5 L RDW Std Deviation 50.6 H RDW Coeff of Mele 14.5 Plt Count 499 H MPV 9.2 Sodium 132 L Potassium 4.1 Chloride 103 Carbon Dioxide 14.0 L Anion Gap 15 BUN 94 H Creatinine 3.46 H Estim Creat Clear Calc 15.90 Est GFR (MDRD) Af Amer 17 L Est GFR (MDRD) Non-Af 14 L BUN/Creatinine Ratio 27.2 H Glucose 144 H Calcium 8.8 Total Bilirubin 0.30 Direct Bilirubin 0.14 AST 10 L ALT < 6 L Alkaline Phosphatase 100 Total Creatine Kinase 72 Troponin I High Sens 9 Total Protein 7.8 Albumin 2.1 L Globulin 5.7 H Lipase 21 Urine Color Yellow Urine Clarity Turbid Urine pH 7.0 Ur Specific [place] 1.010 Urine Protein 500 H Urine Glucose (UA) Normal Urine Ketones 5 H Urine Occult Blood 250 H Urine Nitrite Negative Urine Bilirubin Negative Urine Urobilinogen Normal Ur Leukocyte Esterase 500 H Urine RBC 0 SEEN Urine WBC >100 SEEN Ur Squamous Epith Cells 0 SEEN Urine Bacteria 0 SEEN Urine Mucus 0 SEEN Radiography Diagnostic Testing: Clinical Impression(s) from Imaging Studies Brain CT 01/07/24 13:51 IMPRESSION: 1. Chronic involutional changes of the brain. Electronically Signed: Eduard Jarquin MD at 15:47 EST Reading Location ID and State: [facility] / [place] , Service support , Chest X-Ray 01/07/24 13:51 IMPRESSION: Degenerative changes, as described above. No demonstrated acute cardiopulmonary process. Electronically Signed: Eduard Jarquin MD at 15:49 EST Reading Location ID and State: [address] [place] [address] , Service support , Abdomen/Pelvis CT 01/07/24 15:20 IMPRESSION: 1. Significant bilateral kidney stones with internal ureteral stents bilaterally 2. Mild to moderate left hydronephrosis and pelviectasis with multiple small stones outside of the lumen of the stent within the ureter on both the left and right side and probable lucrecia-stent calcifications Electronically Signed: Eduard Jarquin MD at 16:05 EST , Discharge Plan Disposition Disposition: Acute Care [facility] Discharge Date/Time: 01/07/24 20:25
[2024-01-07 18:38] LABS: Lactic Acid 1.9 mmol/L (0.4-1.9)
--- NOTE | 2024-01-07 18:59 | ED.RN ---
PT WITH MULTIPLE PRESSURE ULCERS ON HER BACK AND BUTTOCKS. THERE ARE SOME WOUND DRESSINGS, BUT THEY APPEAR OVER SATURATED. FAMILY IS NOT SURE WHEN DRESSINGS WERE LAST CHANGED, BUT PATIENT INSISTS IT WAS WITHIN THE LAST WEEK. THERE IS A FOUL SMELLING ODOR. THERE IS REDNESS FROM PRESSURE COVERING MOST OF PT'S BACK. PT HAS SEVERE EXCORIATION IN MANY AREAS OF HER SKIN. PER HOSPICE NURSE, FAMILY ALLOWED PT TO LAY IN BED AND SLEEP FOR TWO DAYS STRAIGHT FAMILY DID NOT CHANGE PT'S DEPENDS OR TURN/REPOSITION DURING THIS TIME. PT IS C/O EXTREME PAIN WITH MOVEMENT D/T WOUNDS AND POOR SKIN CONDITION.
--- NOTE | 2024-01-07 19:40 | HP.PCM.HOS_ITS ---
HPI - General General Date of Admission: 01/07/24 Date of Service: 01/07/24 Chief Complaint: Pain, confusion HPI Narrative MARIA D SMITH is a 63 F with history of GERD, hypothyroidism, MS with chronic pain, chronic indwelling Valenzuela, depression and anxiety who presented [facility] 01/07/2024 for continued chronic pain and some decreased level of consciousness. Patient is currently on hospice for her MS but is full code and is presently being managed at home. She has had multiple changes to her pain medication regimen but still continues to have pretty significant pain. She is in the process of switching between home health companies and in the interim she developed worsened decubitus ulcers. In the ED patient with white blood cell count of 14, did have decreased level of consciousness and blood pressure with systolic 80s to 90s. UA with some leuk esterase and white blood cells but nitrite negative and no bacteria seen. Additionally creatinine 3.46 with a BUN of 94. Patient given broad-spectrum antibiotics and IV fluids and hospitalist contacted for admission. Patient evaluated at bedside, she reports she feels lethargic but was unable to give any other meaningful history as she is tired and quickly falls asleep. Spoke with hospice nurse Yarely at bedside who reported that her pain medication has been actively being adjusted due to some uncontrolled pain and additionally the patient's home health agency is in the process of being switched and it was discovered after the switch that she has had worsened/increased decubitus ulcers. Patient was also been very tired and when she spoke with family it was remarked that patient slept for 2 days straight, also has had poor p.o. intake. Has chronic Valenzuela and has sediment in this chronically, this was changed in the ED. Patient very tired and having difficulty answering questions. Her son is JUDITH, and I asked if it was okay if I spoke with her son and she said yes and asked if he would be the one to make her medical decisions given her difficulty right now and she said yes. Spoke with son at length. The main concern from family was her waxing and waning mental status/being more tired than usual and her uncontrolled pain. Discussed goals of care and it was determined that if there is something that would help with patient's underlying pain or overall comfort that they would like for it to be pursued but would not want any unnecessary procedures or interventions that would not improve quality of life. They would want fluids, antibiotics, would be okay with vasopressors peripherally if needed but are unsure if she would want something as invasive is a central line and think that she likely would not. Discussed CODE STATUS and he reports she herself wants to be full code and he would like her to be full code. [facility] Medical History Acute on chronic urinary retention Anxiety Bedbound Bilateral knee pain delivery delivered Current use of insulin Depression Diabetes Family history of MS (multiple sclerosis) Fatigue History of multiple sclerosis Hoarseness Hyponatremia Kidney stones Lymphedema MDRO (multiple drug resistant organisms) resistance Morbid obesity Multiple sclerosis Muscle spasm Neurogenic bladder Polyneuropathy Type II diabetes mellitus Vitamin A deficiency Home Medications ?Medication ?Instructions ?Recorded ?Last Taken ?Type levothyroxine 50 mcg tablet 50 mcg PO DAILY thyroid 12/21/19 12/02/21 History (Synthroid) duloxetine 60 mg capsule,delayed 60 mg PO BID unsure #180 caps 06/30/21 12/02/21 Rx release atorvastatin 80 mg tablet 80 mg PO DAILY cholesterol 12/03/21 12/02/21 History esomeprazole magnesium 40 mg 40 mg PO DAILY stomach 12/03/21 12/02/21 History capsule,delayed release furosemide 40 mg tablet 80 mg PO BREAKFAST fluid 12/03/21 12/02/21 History metformin 1,000 mg tablet 1,000 mg PO BID DM 12/03/21 12/02/21 History oxycodone-acetaminophen 5 mg-325 1 tab PO TID PRN MS 12/03/21 12/03/21 History mg tablet semaglutide 1 mg/dose (4 mg/3 mL) 1 mg subcut QWEEK dm 12/03/21 08/29/22 History subcutaneous pen injector (Ozempic) buspirone 5 mg tablet 5 mg PO BID pt unsure #60 tabs 02/04/22 Unknown Rx ondansetron 4 mg disintegrating 4 mg PO Q4H PRN PRN Nausea #10 tabs 06/09/22 Unknown Rx tablet midodrine 10 mg tablet 10 mg PO BID Check with primary 08/11/22 Unknown History doctor insulin degludec 200 unit/mL (3 20 unit (0.1 mL) subcut QHS dm #9 09/11/22 12/02/21 Rx mL) subcutaneous pen (Tresiba mL FlexTouch U-200 insulin) levofloxacin 250 mg tablet 250 mg PO DAILY@0600 #5 tabs 09/11/22 Unknown Rx acetaminophen 650 mg 650 mg PO Q12H 02/09/23 Unknown History tablet,extended release (Tylenol Arthritis Pain) baclofen 10 mg tablet 10 mg PO BID 02/09/23 Unknown History baclofen 10 mg tablet 10 mg PO DAILY PRN Muscle Spasm 02/09/23 Unknown History ferrous sulfate 325 mg (65 mg 325 mg PO DAILY 02/09/23 Unknown History iron) tablet (FeroSul) glimepiride 4 mg tablet 4 mg PO BID 02/09/23 Unknown History lorazepam 0.5 mg tablet (Ativan) 0.5 mg PO DAILY PRN 02/09/23 Unknown History sennosides 8.6 mg tablet (Senna 8.6 mg PO DAILY PRN 02/09/23 Unknown History Lax) ocrelizumab 30 mg/mL intravenous See Rx Instructions .Route 12/26/23 Unknown Rx solution (Ocrevus) .COMPLEX #10 mL Allergy/AdvReac Type Severity Reaction Status Date / Time ampicillin (From Unasyn) Allergy Severe Rash Verified 01/07/24 13:05 sulbactam (From Unasyn) Allergy Severe Rash Verified 01/07/24 13:05 ciprofloxacin (From Cipro) Allergy Hives Verified 01/07/24 13:05 ciprofloxacin HCl (From Allergy Hives Verified 01/07/24 13:05 Cipro) clindamycin HCl (From Allergy Hives Verified 02/09/23 08:49 Cleocin) clindamycin palmitate HCl Allergy Hives Verified 01/07/24 13:05 (From Cleocin) clindamycin phosphate (From Allergy Hives Verified 01/07/24 13:05 Cleocin) morphine Allergy Hives Verified 01/07/24 13:05 sulfamethoxazole (From Allergy Hives Verified 01/07/24 13:05 Bactrim) trimethoprim (From Bactrim) Allergy Hives Verified 01/07/24 13:05 hydromorphone HCl (From AdvReac messes Verified 01/07/24 13:05 Dilaudid) with my brain Family History Unknown Multiple sclerosis 1st cousin Father Cancer screen examiner, black lung, Lung CA. Mother Heart disease Diabetes Heart failure Surgical History H/O hernia repair History of cholecystectomy Social History household members: spouse Smoking Status: Never smoker alcohol intake: never substance use type: does not use ROS ROS Narrative Unable to obtain secondary to continued mental status Vital Signs Vital Signs Vital Signs: 01/07/24 13:05 01/07/24 13:11 01/07/24 15:05 Temperature 98.3 F Temperature Source Temporal Pulse Rate 100 88 Respiratory Rate 16 12 Respiratory Effort Normal Respiratory Pattern Normal Blood Pressure 106/83 H 105/59 L Blood Pressure Mean 90 74 Pulse Ox 98 89 Oxygen Delivery Method Room Air Room Air 01/07/24 17:00 01/07/24 17:41 01/07/24 18:56 Temperature 97.8 F Temperature Source Pulse Rate 73 18 L 83 Respiratory Rate 13 18 15 Respiratory Effort Respiratory Pattern Blood Pressure 91/70 98/64 88/56 L Blood Pressure Mean 77 75 66 Pulse Ox 97 99 98 Oxygen Delivery Method Room Air Room Air Weight Weight: 79.2 kg Body Mass Index (BMI) 36.5 Physical Exam Narrative General: Patient wakes up but quickly falls back asleep but has difficulty answering any direct questions HEENT: Atraumatic Eyes: Keeps eyes closed primarily Neck: Supple Respiratory: Normal respiratory effort, no overt rhonchi or wheezes Cardiovascular: Regular rate and rhythm GI: Soft, nontender, nondistended Extremities: Patient with bilateral lower extremity changes and some erythema Musculoskeletal: Patient chronically with MS Neuro: Unable to complete neuroexam secondary to patient mental status Skin: Patient presenting with decubitus ulcers Psych: Attempts to be cooperative but unable secondary to mental status Results Lab / Micro Data 01/07/24 14:35 01/07/24 14:35 Labs: Laboratory Results - last 24 hr 01/07/24 14:35: WBC 14.1 H, RBC 4.18 L, Hgb 12.6, Hct 40.0, MCV 95.7, MCH 30.1, MCHC 31.5 L, RDW Std Deviation 50.6 H, RDW Coeff of Mele 14.5, Plt Count 499 H, MPV 9.2, Sodium 132 L, Potassium 4.1, Chloride 103, Carbon Dioxide 14.0 L, Anion Gap 15, BUN 94 H, Creatinine 3.46 H, Estim Creat Clear Calc 15.90, Est GFR (MDRD) Af Amer 17 L, Est GFR (MDRD) Non-Af 14 L, BUN/Creatinine Ratio 27.2 H, G lucose 144 H, Calcium 8.8, Total Bilirubin 0.30, Direct Bilirubin 0.14, AST 10 L , ALT < 6 L, Alkaline Phosphatase 100, Total Creatine Kinase 72, Troponin I High Sens 9, Total Protein 7.8, Albumin 2.1 L, Globulin 5.7 H, Lipase 21 01/07/24 15:44: Urine Color Yellow, Urine Clarity Turbid, Urine pH 7.0, Ur Specific [place] 1.010, Urine Protein 500 H, Urine Glucose (UA) Normal, Urine Ketones 5 H, Urine Occult Blood 250 H, Urine Nitrite Negative, Urine Bilirubin Negative, Urine Urobilinogen Normal, Ur Leukocyte Esterase 500 H, Urine RBC 0 SEEN, Urine WBC >100 SEEN, Ur Squamous Epith Cells 0 SEEN, Urine Bacteria 0 SEEN, Urine Mucus 0 SEEN 01/07/24 18:00: Lactic Acid 1.9 Imaging Radiology Impression Brain CT 01/07/24 13:51 IMPRESSION: 1. Chronic involutional changes of the brain. Electronically Signed: Eduard Jarquin MD at 15:47 EST Reading Location ID and State: [facility] / [place] , Service support , Chest X-Ray 01/07/24 13:51 IMPRESSION: Degenerative changes, as described above. No demonstrated acute cardiopulmonary process. Electronically Signed: Eduard aJrquin MD at 15:49 EST , Abdomen/Pelvis CT 01/07/24 15:20 IMPRESSION: 1. Significant bilateral kidney stones with internal ureteral stents bilaterally 2. Mild to moderate left hydronephrosis and pelviectasis with multiple small stones outside of the lumen of the stent within the ureter on both the left and right side and probable lucrecia-stent calcifications Electronically Signed: Eduard Jarquin MD at 16:05 EST Reading Location ID and State: [facility] / [place] , Service support , Assessment & Plan Assessment/Plan (1) Decubitus ulcer, infected: PLAN: Plan # Decubitus ulcers with concern for infection -Patient with white blood cell count of 14.1 with some drainage from decubitus ulcers -Will attempt to get wound culture -Wound care consult -IV antibiotics, patient's allergies and hx noted -Blood cultures were obtained though I do not think patient is septic at this time, patient's blood pressure runs low based on vitals from hospice nurse that are taken once a week and she has had poor p.o. intake and additionally is on pain and anxiety medication and suspect that this is the reason for her low blood pressure but patient to be admitted to ICU for an abundance of caution will be hydrated and given IV antibiotics. Given she is being admitted to the ICU collar turner consult placed -Offloading turn as able. Son reported they would like to minimize the amount the patient is moved to decrease her pain, educated on importance of rolling/turning/moving patient due to her ulcers -There was query of UTI however patient with leuk esterase and white blood cell counts but no bacteria or nitrite, urine culture was obtained however suspect infection is more likely from ulcers than urinary in source at this time # Decreased level of consciousness -Suspect multifactorial due to pain and anxiety medication in addition to underlying infection -Will need to balance between managing pain with trying to avoid oversedation given patient is full code and not completely comfort care # EDWINA versus CKD -Pt w/ BUN of 94 and creatinine of 3.46 but last values were over 1 year ago and creatinine was around 1.2, no values in between are available -Has been reported that patient's had poor p.o. intake and suspect there is possibly a component of CKD likely also worsened from baseline due to dehydration -IV fluids, appears patient was prescribed lasix 12/30, will hold these but will also hydrate cautiously with another liter and can give further fluids from there # MS and chronic pain -Patient on hospice due to her MS and chronic pain -Revoking hospice for admission -Patient will need to be reevaluated for hospice appropriateness prior to discharge from our institution -Case management consult # Chronic indwelling Valenzuela -UA with some leuk esterase and white blood cells but nitrite negative and no bacteria seen -Valenzuela changed in ED -CT of the abdomen did show bilateral kidney stones with internal ureteral stents bilaterally, small stones outside lumen of the stent on left and right and some probable peristent calcifications -Discussed with son, they would only like things directly associated with the pain or mental status to be addressed at this time #Type 2 diabetes mellitus -Glucose checks and sliding scale insulin -Awaiting med rec update #Hypothyroidism -Continue Synthroid if still applicable #GERD -Continue PPI if applicable #Depression/anxiety -Awaiting med rec update for final reconciliation #DVT ppx: Heparin subcu Nicolasa Stokes MD Time spent in the patient's overall evaluation, decision-making process, review of diagnostic data, adjustment of management, discussion with other providers, nursing and ancillary staff involved in patient's care documentation, 78 Minutes Charges/Coding Visit Charges Inpatient E&M: 59720 Init Hosp L3
--- NOTE | 2024-01-07 20:45 | PCM.RX.CS ---
Consult Antibiotic Management Pharmacy has been consulted to manage selected antibiotic: Vancomycin Type of Intervention Type of Consult: New start Suspected Infection Suspected Infection: Sepsis Labs Labs: Sodium 132 mmol/L (136-145) L 01/07/24 14:35 Potassium 4.1 mmol/L (3.5-5.1) 01/07/24 14:35 Chloride 103 mmol/L (98-107) 01/07/24 14:35 Carbon Dioxide 14.0 mmol/L (21.0-32.0) L 01/07/24 14:35 Anion Gap 15 (5-15) 01/07/24 14:35 BUN 94 mg/dL (7-18) H 01/07/24 14:35 Creatinine 3.46 mg/dL (0.55-1.02) H 01/07/24 14:35 Est GFR (MDRD) Af Amer 17 mL/min (>60) L 01/07/24 14:35 Est GFR (MDRD) Non-Af 14 mL/min (>60) L 01/07/24 14:35 BUN/Creatinine Ratio 27.2 RATIO (10-20) H 01/07/24 14:35 Glucose 144 mg/dL (74-106) H 01/07/24 14:35 Estimated Creatinine Clearance Estimated Creatinine Clearance: 15.9 Goal Trough Goal Trough: 15-20 mcg/mL Pharmacy Plan for Drug Dosing Pharmacy Plan for Drug Dosing: NEW START IV VANCOMYCIN Consulting Physician: Dr. Stokes Indication: Sepsis Goal Trough: 15-20 SrCr: sCr 3.46 CrCl: 15.90 Comments: Received 1250mg x1 dose in ED @ 1541 01/07/24 Vancomycin Dose: by random level due to CrCl < 20 Pending Level: Random level @ 0600 01/09/24 Pharmacy Service will continue to monitor and adjust dosing as required. Follow-Up Labs Follow-Up Labs: Trough: Vancomycin (01/09/24 @ 0600)
[2024-01-07] MEDS: 0.9% Normal Saline (1000mL) 1,000 ML 999 ML IV (20:59)
--- NOTE | 2024-01-07 23:03 | PCMCONS.TICU ---
HPI Consult Data Date of Consult: 01/07/24 HPI Narrative Reason for Consultation: Septic shock HPI Narrative: MARIA D SMITH is a 63 F with history of GERD, hypothyroidism, MS with chronic pain, chronic indwelling Valenzuela, depression and anxiety who presented to the ER here today with confusion. She was fond to be hypotensive with a UA that was c/w an UTI and labs that were c/w EDWINA. She was placed on IV abx and IV fluids. She was then admitted to the ICU and I was consulted. On interview, the patient stated that she was doing okay. She was mildly somnolent but easily rousable. She was on room air. She had a bolus of IV NS infusing. She had no drips infusing and appears to be calm and in NAD. She did have decubitus ulcers on her back that nursing staff was going to more thoroughly evaluate. The patient stated that she was okay and denied any chest pain, SOB or fevers. [facility] Medical History Diabetes Current use of insulin Hoarseness Acute on chronic urinary retention Neurogenic bladder Vitamin A deficiency Kidney stones Family history of MS (multiple sclerosis) Hyponatremia Muscle spasm Bedbound Anxiety Depression Bilateral knee pain Polyneuropathy Fatigue Multiple sclerosis delivery delivered History of multiple sclerosis Morbid obesity MDRO (multiple drug resistant organisms) resistance Lymphedema Type II diabetes mellitus Home Medications ?Medication ?Instructions ?Recorded ?Last Taken ?Type levothyroxine 50 mcg tablet 50 mcg PO DAILY thyroid 12/21/19 12/02/21 History (Synthroid) duloxetine 60 mg capsule,delayed 60 mg PO BID unsure #180 caps 06/30/21 12/02/21 Rx release atorvastatin 80 mg tablet 80 mg PO DAILY cholesterol 12/03/21 12/02/21 History esomeprazole magnesium 40 mg 40 mg PO DAILY stomach 12/03/21 12/02/21 History capsule,delayed release furosemide 40 mg tablet 80 mg PO BREAKFAST fluid 12/03/21 12/02/21 History metformin 1,000 mg tablet 1,000 mg PO BID DM 12/03/21 12/02/21 History oxycodone-acetaminophen 5 mg-325 1 tab PO TID PRN MS 12/03/21 12/03/21 History mg tablet semaglutide 1 mg/dose (4 mg/3 mL) 1 mg subcut QWEEK dm 12/03/21 08/29/22 History subcutaneous pen injector (Ozempic) buspirone 5 mg tablet 5 mg PO BID pt unsure #60 tabs 02/04/22 Unknown Rx ondansetron 4 mg disintegrating 4 mg PO Q4H PRN PRN Nausea #10 tabs 06/09/22 Unknown Rx tablet midodrine 10 mg tablet 10 mg PO BID Check with primary 08/11/22 Unknown History doctor insulin degludec 200 unit/mL (3 20 unit (0.1 mL) subcut QHS dm #9 09/11/22 12/02/21 Rx mL) subcutaneous pen (Tresiba mL FlexTouch U-200 insulin) levofloxacin 250 mg tablet 250 mg PO DAILY@0600 #5 tabs 09/11/22 Unknown Rx acetaminophen 650 mg 650 mg PO Q12H 02/09/23 Unknown History tablet,extended release (Tylenol Arthritis Pain) baclofen 10 mg tablet 10 mg PO BID 02/09/23 Unknown History baclofen 10 mg tablet 10 mg PO DAILY PRN Muscle Spasm 02/09/23 Unknown History ferrous sulfate 325 mg (65 mg 325 mg PO DAILY 02/09/23 Unknown History iron) tablet (FeroSul) glimepiride 4 mg tablet 4 mg PO BID 02/09/23 Unknown History lorazepam 0.5 mg tablet (Ativan) 0.5 mg PO DAILY PRN 02/09/23 Unknown History sennosides 8.6 mg tablet (Senna 8.6 mg PO DAILY PRN 02/09/23 Unknown History Lax) ocrelizumab 30 mg/mL intravenous See Rx Instructions .Route 12/26/23 Unknown Rx solution (Ocrevus) .COMPLEX #10 mL Allergy/AdvReac Type Severity Reaction Status Date / Time ampicillin (From Unasyn) Allergy Severe Rash Verified 01/07/24 13:05 sulbactam (From Unasyn) Allergy Severe Rash Verified 01/07/24 13:05 ciprofloxacin (From Cipro) Allergy Hives Verified 01/07/24 13:05 ciprofloxacin HCl (From Allergy Hives Verified 01/07/24 13:05 Cipro) clindamycin HCl (From Allergy Hives Verified 02/09/23 08:49 Cleocin) clindamycin palmitate HCl Allergy Hives Verified 01/07/24 13:05 (From Cleocin) clindamycin phosphate (From Allergy Hives Verified 01/07/24 13:05 Cleocin) morphine Allergy Hives Verified 01/07/24 13:05 sulfamethoxazole (From Allergy Hives Verified 01/07/24 13:05 Bactrim) trimethoprim (From Bactrim) Allergy Hives Verified 01/07/24 13:05 hydromorphone HCl (From AdvReac messes Verified 01/07/24 13:05 Dilaudid) with my brain Family History Unknown Multiple sclerosis 1st cousin Father Cancer tax examiner, black lung, Lung CA. Mother Heart disease Diabetes Heart failure Surgical History H/O hernia repair History of cholecystectomy Social History household members: spouse Smoking Status: Never smoker alcohol intake: never substance use type: does not use ROS ROS Narrative ROS positive only for features mentioned in the HPI. Objective Data Objective Data Vital Signs: Vital Signs Last response Temperature 35.9 C L 01/07/24 22:00 Temperature Source Temporal 01/07/24 22:00 Pulse Rate 76 01/07/24 22:25 Respiratory Rate 13 01/07/24 22:25 Respiratory Effort Normal, Non-Labored 01/07/24 21:16 Respiratory Depth Normal 01/07/24 21:16 Respiratory Pattern Normal 01/07/24 21:16 Blood Pressure 89/57 L 01/07/24 22:25 Blood Pressure Mean 67 01/07/24 22:25 Blood Pressure Source Monitor 01/07/24 22:25 Blood Pressure Position Semi-Fowlers 01/07/24 22:25 Blood Pressure Location Right Arm 01/07/24 22:25 Pulse Ox 99 01/07/24 22:25 Oxygen Delivery Method Room Air 01/07/24 22:25 I&O: I&O Last 24 Hours 01/06/24 01/07/24 01/07/24 23:59 11:59 23:59 Intake Total 2375 / 2375 Balance 2375 / 2375 I&O: Total Stay 01/07/24 13:04 thru 01/07/24 22:18 Intake Total 2375 Balance 2375 Current Meds Ordered / Administered: Current meds ordered / Administered Generic Name Dose Route Start Last Admin Trade Name Jaden PRN Reason Stop Dose Admin Acetaminophen 1,000 mg 01/07/24 22:00 Acetaminophen 500 Mg Tablet PO Q8 [facility] Albuterol Sulfate 2.5 mg 01/07/24 20:26 Albuterol 2.5 Mg/3 Ml Vial.Neb. INHALATION Q2H PRN PRN SOB &/OR WHEEZING Chlorhexidine Gluconate 1 each 01/08/24 10:00 Chlorhexidine Gluc 2% Cloth 1 Each Towelette TOPICAL DAILY [facility] Fentanyl Citrate 50 mcg 01/07/24 20:26 Fentanyl 100 Mcg/2 Ml Ampul IV Q2H PRN PRN pain 7-10 Glucagon 1 mg 01/07/24 20:26 Glucagon 1 Mg/Ml Syringe IM X1 PRN Hypoglycemia Protocol Heparin Sodium (Porcine) 5,000 unit 01/07/24 22:00 Heparin Injection (Vial) 5,000 Unit/Ml Vial SC Q8 [facility] Cefepime HCl 2 gm/ Sodium 100 mls @ 200 mls/hr 01/08/24 10:00 Chloride IV Q24 [facility] Dextrose 250 mls @ 0 mls/hr 01/07/24 20:26 Dextrose 10%-Water IV .Q0M PRN HYPOGLYCEMIA Protocol As Directed Vancomycin IV-PHARMACY TO DOSE 500 mls @ 250 mls/hr 01/07/24 20:26 1 each/ Sodium Chloride IV PRN PRN Rx to Dose Protocol Sodium Chloride 500 mls @ 15 mls/hr 01/07/24 20:54 IV .[id number] PRN Saline Flush Sodium Chloride 500 mls @ 15 mls/hr 01/07/24 20:54 IV .[id number] PRN Additional IVPB Infusion Insulin Human Lispro 0 unit 01/08/24 07:00 Insulin Lispro 100 Unit/Ml Insuln.Pen SC TIDAC [facility] Protocol Melatonin 3 mg 01/07/24 20:26 Melatonin 3 Mg Tablet PO QHS PRN PRN INSOMNIA Ondansetron HCl 4 mg 01/07/24 20:26 Ondansetron 4 Mg/2 Ml Vial IV Q8H PRN PRN NAUSEA/VOMITING Oxycodone HCl 5 mg 01/07/24 20:26 Oxycodone 5 Mg Tablet PO Q4H PRN PRN Pain Score 4-10 Senna/Docusate Sodium 2 tablet 01/07/24 20:26 Senna/Docusate Sodium 1 Tablet PO BID PRN PRN Constipation Sodium Chloride 10 - 40 ml 01/07/24 20:54 0.9% Saline Lock 10 Ml Syringe IV UD PRN SALINE FLUSH Vancomycin Protocol 1 lab 01/09/24 04:00 Vancomycin Trough/Random Due 01/09/24 08:00 DAILY NOEL Physical Exam Const Constitutional Narrative: Well developed WF, somnolent but easily rousable. General Appearance: cooperative HEENT normocephalic, head/scalp atraumatic, hearing grossly normal bilaterally, external ears normal, EAC's normal, TM's normal bilaterally, external nose normal, nasal mucous membranes and turbinates normal, moist oral mucous membranes, oropharynx normal, dentition normal and gingiva normal Eyes PERRL, EOMs intact bilaterally, conjunctivae normal, no scleral icterus, no papilledema, normal visual sterling by confrontation and fundi normal bilaterally Resp normal respiratory effort, normal air movement, no retractions, no use of accessory muscles, clear to auscultation bilaterally and percussion normal Cardio regular rate, regular rhythm, S1 normal heart sound, S2 normal heart sound, no murmurs, no rub, no gallops, no clicks, no JVD, peripheral pulses 2+ throughout and diaphoretic GI normal to inspection, nondistended, normoactive bowel sounds, soft to palpation, non-tender, non-distended, hepatosplenomegaly, no masses and no bruits Extremity normal to inspection, full ROM, normal capillary refill, no joint enlargement, no clubbing, cyanosis or edema, no calf tenderness and no pedal edema Medical Records Data Attestation: I reviewed the patient's medical records Lab / Micro Data 01/07/24 14:35 01/07/24 14:35 Labs: Laboratory Results - last 24 hr 01/07/24 14:35: WBC 14.1 H, RBC 4.18 L, Hgb 12.6, Hct 40.0, MCV 95.7, MCH 30.1, MCHC 31.5 L, RDW Std Deviation 50.6 H, RDW Coeff of Mele 14.5, Plt Count 499 H, MPV 9.2, Sodium 132 L, Potassium 4.1, Chloride 103, Carbon Dioxide 14.0 L, Anion Gap 15, BUN 94 H, Creatinine 3.46 H, Estim Creat Clear Calc 15.90, Est GFR (MDRD) Af Amer 17 L, Est GFR (MDRD) Non-Af 14 L, BUN/Creatinine Ratio 27.2 H, Glucose 144 H, Calcium 8.8, Total Bilirubin 0.30, Direct Bilirubin 0.14, AST 10 L, ALT < 6 L, Alkaline Phosphatase 100, Total Creatine Kinase 72, Troponin I High Sens 9, Total Protein 7.8, Albumin 2.1 L, Globulin 5.7 H, Lipase 21 01/07/24 15:44: Urine Color Yellow, Urine Clarity Turbid, Urine pH 7.0, Ur Specific [place] 1.010, Urine Protein 500 H, Urine Glucose (UA) Normal, Urine Ketones 5 H, Urine Occult Blood 250 H, Urine Nitrite Negative, Urine Bilirubin Negative, Urine Urobilinogen Normal, Ur Leukocyte Esterase 500 H, Urine RBC 0 SEEN, Urine WBC >100 SEEN, Ur Squamous Epith Cells 0 SEEN, Urine Bacteria 0 SEEN, Urine Mucus 0 SEEN 01/07/24 18:00: Lactic Acid 1.9 Imaging Radiology Impression Brain CT 01/07/24 13:51 IMPRESSION: 1. Chronic involutional changes of the brain. Electronically Signed: Eduard Jarquin MD at 15:47 EST Reading Location ID and State: [address] [place] [address] , Service support , Chest X-Ray 01/07/24 13:51 IMPRESSION: Degenerative changes, as described above. No demonstrated acute cardiopulmonary process. Electronically Signed: Eduard Jarquin MD at 15:49 EST , Abdomen/Pelvis CT 01/07/24 15:20 IMPRESSION: 1. Significant bilateral kidney stones with internal ureteral stents bilaterally 2. Mild to moderate left hydronephrosis and pelviectasis with multiple small stones outside of the lumen of the stent within the ureter on both the left and right side and probable lucrecia-stent calcifications Electronically Signed: Eduard Jarquin MD at 16:05 EST Reading Location ID and State: [facility] / [place] , Service support , Assessment and Plan . Assessment and plan: 1. Septic shock 2. UTI 3. EDWINA 4. Encephalopathy 5. GERD 6. MS 7. Hypothyroidism 8. Depression 9. Anxiety -Continue Vanc and Cefepime. -F/U blood and urine cx. -Noted that the patient is getting a NS bolus now. -Start LR at 100 cc/hr. -Check BMP and CBC tomorrow AM. -NPO. Change subq TID heparin to BID. Start IV qday PPI. Critical Care Time: 60 mins The entirety of this encounter was done via Telemedicine
[2024-01-07] MEDS: Acetaminophen 500 MG Tablet 1000 MG PO (23:04)
[2024-01-07] MEDS: Heparin Injection (Vial) 5,000 UNIT/ML VIAL 5000 UNIT SC (23:05)
[2024-01-08] VITALS (86 sets, daily range): BP systolic 75–129; BP diastolic 43–98; PULSE 64–106; RESP 7–19; TEMP 35.7–36.2; O2SAT 99–100; BMI 34.7
[2024-01-08] MEDS: Lactated Ringers 1,000 ML 100 ML IV ×2 (01:06→11:37)
[2024-01-08] MEDS: Norepinephrine 8 MG in 0.9% Normal Saline (250mL Bag) 242 ML 9.4 MG CONT INF (04:26)
[2024-01-08] MEDS: 0.9% Saline Lock 10 ML Syringe IV ×4 (04:29→18:46)
[2024-01-08] MEDS: Acetaminophen 500 MG Tablet 1000 MG PO ×3 (05:35→21:46)
[2024-01-08] MEDS: Heparin Injection (Vial) 5,000 UNIT/ML VIAL 5000 UNIT SC ×3 (05:35→21:45)
[2024-01-08 05:45] LABS: Absolute Lymphocyte Count 0.88 X10^3/uL (0.83-4.51); Absolute Neutrophil Count 11.5 X10^3/uL (2.0-7.7); Basophil% 0.7 % (0-1); Eosinophil# 0.21 X10^3/uL; Eosinophils% 1.5 % (0-5); Hematocrit 39.6 % (37-47); Hemoglobin 12.5 g/dL (12.0-15.0); Lymphocyte # 0.88 X10^3/ul (0.83-4.51); Lymphocyte % 6.3 % (19-41); Mean Corp Hgb Conc 31.6 g/dL (32-36); Mean Corpuscular Hgb 30.3 pg (27.0-32.0); Mean Corpuscular Volume 96.1 fL (81-99); Mean Platelet Vol. 9.1 fl (6.2-12.0); Monocyte# 1.16 X10^3/uL; Monocyte% 8.2 % (0-10); NRBC Flagged by Analyzer 0 % (0-5); Neutrophil # 11.48 X10^3/uL (2.7-7.7); Neutrophil % 81.6 % (47-70); Platelet Count 399 K/mm3 (150-450); RBC Distribution Width CV 14.6 % (11.6-14.6); RBC Distribution Width SD 51.2 fl (35.1-43.9); Red Blood Count 4.12 M/mm3 (4.2-5.4); White Blood Count 14.1 K/mm3 (4.4-11.0)
[2024-01-08 06:14] LABS: Anion Gap 13 (5-15); BUN 92 mg/dL (7-18); BUN/Creat Ratio 29.6 RATIO (10-20); Calcium,Total 8.3 mg/dL (8.5-10.1); Chloride 109 mmol/L (98-107); Creatinine, Serum 3.11 mg/dL (0.55-1.02); EST Glomerular Filtration Rate 16 mL/min (>60); Est Glom Filt Rate - Afr Amer 20 mL/min (>60); Estimated Creatinine Clearance 17.27 ml/min; Glucose 130 mg/dL (74-106); Potassium 3.8 mmol/L (3.5-5.1); Sodium Level 134 mmol/L (136-145)
--- NOTE | 2024-01-08 07:31 | CASEMGMT ---
Social Work Power of quality control industrial engineer for healthcare with living will provision initialed is scanned into [employer], son Steven Carlyn is listed as healthcare power of quality control industrial engineer. NUNU Motley
[2024-01-08 09:18] LABS: Bedside Glucose 123 mg/dL (74-106)
[2024-01-08] MEDS: Cefepime HCl 2 GM in 0.9% Normal Saline (100mL MB+) 100 ML IV (09:18)
--- NOTE | 2024-01-08 11:13 | CASEMGMT ---
Addendum entered by Cheyenne Lane 01/08/24 11:41: Social Work Nicky from [facility] returned SW call, she states the nurse who has cared for pt is not available this weekend, but did note there were some concerns around compliance. She states that pt was sent in for pain control. Nicky states will have RN who cares for pt call SW Wednesday for clarification. DAYTON Motley-Jenny Original Note: Social Work SW met w/pt in room, pt was able to answer some questions about prior level of function, and was okay w/SW calling pt's son for clarification--his Allison also participated in the conversation as she helps to care for pt. Pt's son did confirm pt was on hospice w/[facility]([phone]) prior to this hospitalization, family had her brought in due to her significant change in mental status. PCP: Dr. Sheri King prior to being on hospice Specialists: Pt could not remember, prior to being on hospice. Pt's son states pt did have a neurologist for her MS but does not recall the name Insurance/Prescription coverage: [facility] Preferred Pharmacy: [facility] in [place], or [place] as they can deliver LNOK: Son Steven, DIL Allison, Jm LW/POA: [facility], son Steven is healthcare POA. Living arrangements/prior level of function: Pt living home w/ in a one story home, with a lift chair entry. Pt's family is helping pt with all ADLs. She is nonambulatory and mostly just stays in bed. Pt has a neal catheter, and when has a BM the family changes the michele under her. Pt's daughter in law Allison is an aide for pt through her [employer], as per Allison, they cover 25 hours per week. Allison helps w/bathing. Pt's [employer] CM is May as per pt. As per son, pt has [facility], they are to take care of the wound on her back, but they have only been involved for a couple of weeks. As per Steven, pt's also helps pt as able. DME: Pt has a hospital bed, chair lift at the entry, ye lift. As per son pt does not use the ye very often however. HHC/SNF/Hospice: At present pt has [facility], and aide services through [employer], [id number] is providing the aide services at this time, 25hours per week. She's been to [facility] in the past Plan: As per son, plan will be for pt to return home w/resumption of hospice services. Pt's son states pt is normally alert and oriented, and it would be up to her to make the final decision. Staff in ICU have mentioned concern about the wound on pt's back not being cared for properly. Pt's neighbor also came in and mentioned to staff concerns about the family not caring for pt. Pt states to SW she does feel safe at home. SW to follow up w/pt's CM May on Wednesday, and SW/CM will continue to follow. A call to APS may be warranted prior to pt's discharge. 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 She states they are treating the wound on pt's backside, she states it's a stage II, and they have been treating it with dermacept and foam dressing. She will have RN who cares for pt call SW back for clarification. SW will continue to follow, d/c plan is yet to be determined. NUNU Motley
[2024-01-08 12:59] LABS: International Normalized Ratio 1.3; Prothrombin Time (Protime)PT. 15.8 SECONDS (11.7-14.9)
[2024-01-08 13:38] LABS: Bedside Glucose 130 mg/dL (74-106)
[2024-01-08] MEDS: CHLORHEXIDINE GLUC 2% CLOTH 1 EACH TOWELETTE TOPICAL (13:38)
--- NOTE | 2024-01-08 13:52 | PN.CC_ITS ---
Objective Data Objective Data Vital Signs: Vital Signs Last response 3 Temperature 36.1 C L 01/08/24 12:00 Temperature Source Temporal 01/08/24 12:00 Pulse Rate 87 01/08/24 13:15 Respiratory Rate 14 01/08/24 13:15 Respiratory Effort Normal, Non-Labored 01/08/24 12:00 Respiratory Depth Normal 01/08/24 12:00 Respiratory Pattern Normal 01/08/24 12:00 Blood Pressure 98/60 01/08/24 13:15 Blood Pressure Mean 72 01/08/24 13:15 Blood Pressure Source Monitor 01/08/24 07:15 Blood Pressure Position Semi-Fowlers 01/08/24 08:00 Blood Pressure Location Right Arm 01/08/24 08:00 Pulse Ox 100 01/08/24 13:15 Oxygen Delivery Method Room Air 01/08/24 13:15 I&O: I&O Last 24 Hours 3 01/07/24 01/08/24 01/08/24 23:59 11:59 23:59 Intake Total 2375 / 2525 1401.45 / 1412.74 11.29 / 1412.74 Output Total 290 / 360 70 / 360 Balance 2375 / 2525 1111.45 / 1052.74 -58.71 / 1052.74 I&O: Total Stay 3 01/07/24 13:04 thru 01/08/24 13:15 Intake Total 3787.74 Output Total 360 Balance 3427.74 Current Meds Ordered / Administered: Current meds ordered / Administered 3 Generic Name Dose Route Start Last Admin Trade Name Freq PRN Reason Stop Dose Admin Acetaminophen 1,000 mg 01/07/24 22:00 01/08/24 13:40 Acetaminophen 500 Mg Tablet PO 1,000 mg Q8 NOEL Administration Albuterol Sulfate 2.5 mg 01/07/24 20:26 Albuterol 2.5 Mg/3 Ml Vial.Neb. INHALATION Q2H PRN PRN SOB &/OR WHEEZING Chlorhexidine Gluconate 1 each 01/08/24 10:00 01/08/24 13:38 Chlorhexidine Gluc 2% Cloth 1 Each Towelette TOPICAL 1 each DAILY NOEL Administration Fentanyl Citrate 50 mcg 01/07/24 20:26 Fentanyl 100 Mcg/2 Ml Ampul IV Q2H PRN PRN pain 7-10 Glucagon 1 mg 01/07/24 20:26 Glucagon 1 Mg/Ml Syringe IM X1 PRN Hypoglycemia Protocol Heparin Sodium (Porcine) 5,000 unit 01/07/24 22:00 01/08/24 13:47 Heparin Injection (Vial) 5,000 Unit/Ml Vial SC 5,000 unit Q8 NOEL Administration Cefepime HCl 2 gm/ Sodium 100 mls @ 200 mls/hr 01/08/24 10:00 01/08/24 10:05 Chloride IV Infused Q24 NOEL Infusion Dextrose 250 mls @ 0 mls/hr 01/07/24 20:26 Dextrose 10%-Water IV .Q0M PRN HYPOGLYCEMIA Protocol As Directed Vancomycin IV-PHARMACY TO DOSE 500 mls @ 250 mls/hr 01/07/24 20:26 1 each/ Sodium Chloride IV PRN PRN Rx to Dose Protocol Sodium Chloride 500 mls @ 15 mls/hr 01/07/24 20:54 IV .[id number] PRN Saline Flush Sodium Chloride 500 mls @ 15 mls/hr 01/07/24 20:54 IV .[id number] PRN Additional IVPB Infusion Lactated Ringer's 1,000 mls @ 100 mls/hr 01/08/24 00:15 01/08/24 11:37 IV 01/08/24 20:14 100 mls/hr .Q10H NOEL Administration Protocol Norepinephrine Bitartrate 8 mg 250 mls @ 9.375 mls/hr 01/08/24 04:10 01/08/24 13:15 / Sodium Chloride CONT INF 1 mcg/min .[id number] NOEL 1.9 mls/hr Titration Protocol 5 MCG/MIN Insulin Human Lispro 0 unit 01/08/24 07:00 01/08/24 13:23 Insulin Lispro 100 Unit/Ml Insuln.Pen SC Not Given TIDAC [facility] Protocol Melatonin 3 mg 01/07/24 20:26 Melatonin 3 Mg Tablet PO QHS PRN PRN INSOMNIA Ondansetron HCl 4 mg 01/07/24 20:26 Ondansetron 4 Mg/2 Ml Vial IV Q8H PRN PRN NAUSEA/VOMITING Oxycodone HCl 5 mg 01/07/24 20:26 Oxycodone 5 Mg Tablet PO Q4H PRN PRN Pain Score 4-10 Senna/Docusate Sodium 2 tablet 01/07/24 20:26 Senna/Docusate Sodium 1 Tablet PO BID PRN PRN Constipation Sodium Chloride 10 - 40 ml 01/07/24 20:54 01/08/24 10:04 0.9% Saline Lock 10 Ml Syringe IV 10 ml UD PRN Administration SALINE FLUSH Vancomycin Protocol 1 lab 01/09/24 04:00 Vancomycin Trough/Random Due [facility] 01/09/24 08:00 DAILY [facility] Lab / Micro Data Attestation: I reviewed the patient's lab results. 01/08/24 05:20 01/08/24 05:40 Labs: Laboratory Results - last 24 hr 01/07/24 14:35: WBC 14.1 H, RBC 4.18 L, Hgb 12.6, Hct 40.0, MCV 95.7, MCH 30.1, MCHC 31.5 L, RDW Std Deviation 50.6 H, RDW Coeff of Mele 14.5, Plt Count 499 H, MPV 9.2, Sodium 132 L, Potassium 4.1, Chloride 103, Carbon Dioxide 14.0 L, Anion Gap 15, BUN 94 H, Creatinine 3.46 H, Estim Creat Clear Calc 15.90, Est GFR (MDRD) Af Amer 17 L, Est GFR (MDRD) Non-Af 14 L, BUN/Creatinine Ratio 27.2 H, G lucose 144 H, Calcium 8.8, Total Bilirubin 0.30, Direct Bilirubin 0.14, AST 10 L , ALT < 6 L, Alkaline Phosphatase 100, Total Creatine Kinase 72, Troponin I High Sens 9, Total Protein 7.8, Albumin 2.1 L, Globulin 5.7 H, Lipase 21 01/07/24 15:44: Urine Color Yellow, Urine Clarity Turbid, Urine pH 7.0, Ur Specific [place] 1.010, Urine Protein 500 H, Urine Glucose (UA) Normal, Urine Ketones 5 H, Urine Occult Blood 250 H, Urine Nitrite Negative, Urine Bilirubin Negative, Urine Urobilinogen Normal, Ur Leukocyte Esterase 500 H, Urine RBC 0 SEEN, Urine WBC >100 SEEN, Ur Squamous Epith Cells 0 SEEN, Urine Bacteria 0 SEEN, Urine Mucus 0 SEEN 01/07/24 18:00: Lactic Acid 1.9 01/08/24 05:20: WBC 14.1 H, RBC 4.12 L, Hgb 12.5, Hct 39.6, MCV 96.1, MCH 30.3, MCHC 31.6 L, RDW Std Deviation 51.2 H, RDW Coeff of Mele 14.6, Plt Count 399, MPV 9.1, Immature Gran % (Auto) 1.700 H, Neut % (Auto) 81.6 H, Lymph % (Auto) 6.3 L, [place] % (Auto) 8.2, Eos % (Auto) 1.5, Baso % (Auto) 0.7, Absolute Neuts (auto) 11.5 H, Absolute Lymphs (auto) 0.88, Nucleated RBC % 0 01/08/24 05:40: Sodium 134 L, Potassium 3.8, Chloride 109 H, Carbon Dioxide 12.0 L, Anion Gap 13, BUN 92 H, Creatinine 3.11 H, Estim Creat Clear Calc 17.27, Est GFR (MDRD) Af Amer 20 L, Est GFR (MDRD) Non-Af 16 L, BUN/Creatinine Ratio 29.6 H , Glucose 130 H, Calcium 8.3 L, TSH 4.090 H 01/08/24 08:24: POC Glucose 123 H 01/08/24 12:43: PT 15.8 H, INR 1.3 01/08/24 13:19: POC Glucose 130 H Micro: Microbiology 01/07/24 23:45 Wound - Buttock Gram Stain - Final 01/07/24 15:44 Urine, Catheterized Urine Culture - Preliminary Gram negative alfie Imaging Radiology Impression Brain CT 01/07/24 13:51 IMPRESSION: 1. Chronic involutional changes of the brain. Electronically Signed: Eduard Jarquin MD at 15:47 EST Reading Location ID and State: [address] [place] [address] , Service support , Chest X-Ray 01/07/24 13:51 IMPRESSION: Degenerative changes, as described above. No demonstrated acute cardiopulmonary process. Electronically Signed: Eduard Jarquin MD at 15:49 EST , Abdomen/Pelvis CT 01/07/24 15:20 IMPRESSION: 1. Significant bilateral kidney stones with internal ureteral stents bilaterally 2. Mild to moderate left hydronephrosis and pelviectasis with multiple small stones outside of the lumen of the stent within the ureter on both the left and right side and probable lucrecia-stent calcifications Electronically Signed: Eduard Jarquin MD at 16:05 EST Reading Location ID and State: [facility] / [place] , Service support , Assessment and Plan . Assessment and plan: Assessment and plan: 1. Septic shock 2. UTI 3. EDWINA 4. Encephalopathy 5. GERD 6. MS 7. Hypothyroidism 8. Depression 9. Anxiety -Continue Vanc and Cefepime. -F/U blood and urine cx -Start LR at 100 cc/hr. -Check BMP and CBC tomorrow AM. -APS to be contacted Critical Care Time: 50 minutes The entirety of this encounter was done via Telemedicine Physical Exam Const alert and no apparent distress General Appearance: disheveled and lethargic Subjective Subjective Events reviewed, remains altered. Concerns with respect to home care arrangements are noted. Still on vasopressor support.
--- NOTE | 2024-01-08 14:01 | PN.HOSP_ITS ---
Reason for Visit Reason for Visit: Diagnoses Local infection of the skin and subcutaneous tissue, unspecified (01/07/24) Pressure ulcer of unspecified site, unspecified stage (01/07/24) Objective Data Objective Data Vital Signs: Vital Signs Temp Pulse Resp BP Pulse Ox O2 Del Method 97 F L 87 14 98/60 100 Room Air 01/08/24 12:00 01/08/24 13:15 01/08/24 13:15 01/08/24 13:15 01/08/24 13:15 01/08/24 13:15 Oxygen Delivery Method Room Air Weight: 171 lb 11.841 oz Body Mass Index (BMI) 34.7 Intake & Output: Intake and Output for Last 24 Hours 01/06/24 01/07/24 01/08/24 23:59 23:59 23:59 Intake Total 2375 / 2525 1412.74 / 1412.74 Output Total 360 / 360 Balance 2375 / 2525 1052.74 / 1052.74 Lab / Micro Data 01/08/24 05:20 01/08/24 05:40 Labs: Laboratory Results - last 24 hr 01/07/24 14:35: WBC 14.1 H, RBC 4.18 L, Hgb 12.6, Hct 40.0, MCV 95.7, MCH 30.1, MCHC 31.5 L, RDW Std Deviation 50.6 H, RDW Coeff of Mele 14.5, Plt Count 499 H, MPV 9.2, Sodium 132 L, Potassium 4.1, Chloride 103, Carbon Dioxide 14.0 L, Anion Gap 15, BUN 94 H, Creatinine 3.46 H, Estim Creat Clear Calc 15.90, Est GFR (MDRD) Af Amer 17 L, Est GFR (MDRD) Non-Af 14 L, BUN/Creatinine Ratio 27.2 H, G lucose 144 H, Calcium 8.8, Total Bilirubin 0.30, Direct Bilirubin 0.14, AST 10 L , ALT < 6 L, Alkaline Phosphatase 100, Total Creatine Kinase 72, Troponin I High Sens 9, Total Protein 7.8, Albumin 2.1 L, Globulin 5.7 H, Lipase 21 01/07/24 15:44: Urine Color Yellow, Urine Clarity Turbid, Urine pH 7.0, Ur Specific [place] 1.010, Urine Protein 500 H, Urine Glucose (UA) Normal, Urine Ketones 5 H, Urine Occult Blood 250 H, Urine Nitrite Negative, Urine Bilirubin Negative, Urine Urobilinogen Normal, Ur Leukocyte Esterase 500 H, Urine RBC 0 SEEN, Urine WBC >100 SEEN, Ur Squamous Epith Cells 0 SEEN, Urine Bacteria 0 SEEN, Urine Mucus 0 SEEN 01/07/24 18:00: Lactic Acid 1.9 01/08/24 05:20: WBC 14.1 H, RBC 4.12 L, Hgb 12.5, Hct 39.6, MCV 96.1, MCH 30.3, MCHC 31.6 L, RDW Std Deviation 51.2 H, RDW Coeff of Mele 14.6, Plt Count 399, MPV 9.1, Immature Gran % (Auto) 1.700 H, Neut % (Auto) 81.6 H, Lymph % (Auto) 6.3 L, [place] % (Auto) 8.2, Eos % (Auto) 1.5, Baso % (Auto) 0.7, Absolute Neuts (auto) 11.5 H, Absolute Lymphs (auto) 0.88, Nucleated RBC % 0 01/08/24 05:40: Sodium 134 L, Potassium 3.8, Chloride 109 H, Carbon Dioxide 12.0 L, Anion Gap 13, BUN 92 H, Creatinine 3.11 H, Estim Creat Clear Calc 17.27, Est GFR (MDRD) Af Amer 20 L, Est GFR (MDRD) Non-Af 16 L, BUN/Creatinine Ratio 29.6 H , Glucose 130 H, Calcium 8.3 L, TSH 4.090 H 01/08/24 08:24: POC Glucose 123 H 01/08/24 12:43: PT 15.8 H, INR 1.3 01/08/24 13:19: POC Glucose 130 H Micro: Microbiology 01/07/24 23:45 Wound - Buttock Gram Stain - Final 01/07/24 15:44 Urine, Catheterized Urine Culture - Preliminary Gram negative alfie Radiography Diagnostic Testing: Radiology Impression Brain CT 01/07/24 13:51 IMPRESSION: 1. Chronic involutional changes of the brain. Electronically Signed: Eduard Jarquin MD at 15:47 EST Reading Location ID and State: [facility] / [place] , Service support , Chest X-Ray 01/07/24 13:51 IMPRESSION: Degenerative changes, as described above. No demonstrated acute cardiopulmonary process. Electronically Signed: Eduard Jarquin MD at 15:49 EST Reading Location ID and State: [facility] / [place] , Service support , Abdomen/Pelvis CT 01/07/24 15:20 IMPRESSION: 1. Significant bilateral kidney stones with internal ureteral stents bilaterally 2. Mild to moderate left hydronephrosis and pelviectasis with multiple small stones outside of the lumen of the stent within the ureter on both the left and right side and probable lucrecia-stent calcifications Electronically Signed: Eduard Jarquin MD at 16:05 EST , Physical Exam Narrative Seen and examined. Patient and confused. Admitted with altered mental status and hypotension. On Levophed drip through peripheral IV. Chronic indwelling Valenzuela, exchanged in ER. Multiple wounds in back and buttocks total 5. Physical exam General: Confused, disoriented HEENT: Atraumatic, PERRLA, EOMI, Normocephalic Oral: Oral mucosa dry. No Gingival or Mucosal Lesions/ Ulcerations Neck: Supple, No JVD, Negative Carotid Bruits Chest wall/Lungs: Air entry diminished in bilateral lung bases. No crepitation/rhonchi Cardiovascular: Muffled heart sound. Systolic murmur present. On Levophed. Abdomen: Bowel Sounds Present, Soft, Non Tender, Non-Distended : No dysuria. No renal angle tenderness. No suprapubic tenderness. Extremities: Mild edema, Capillary Refill Less than 3 Seconds Skin: Multiple decubitus ulcers on back and buttock. 1 ulcer is tunneled Musculoskeletal: No Tenderness to Palpation of Joints or Extremities. ROM restricted Neurological: Detailed neuroexam unobtainable. Disoriented. Uncooperative speech Psych/Mental Status: Confused disoriented, sometimes hallucination Assessment & Plan Assessment/Plan (1) EDWINA (acute kidney injury): (2) Decubitus ulcer, infected: PLAN: Plan # Septic shock possibly due to UTI/multiple decubitus ulcers with concern for infection: Patient is being admitted in ICU. Transformer Tester consulted. -Patient with white blood cell count of 14.1 with some drainage from decubitus ulcers. Blood cultures, wound culture and sepsis workup -Wound care consult. Urine looks purulent -IV antibiotics, patient's allergies and hx noted - The patient presented with sepsis with clinical indicators hypotension, altered mental status of due to multiple decubitus ulcer/UTI with acute sepsis- related organ dysfunction as evidenced by hypotension requiring IV pressor, EDWINA on CKD and altered mental status # Decreased level of consciousness/acute encephalopathy -Suspect multifactorial due to pain and anxiety medication in addition to underlying infection # EDWINA versus CKD -Pt w/ BUN of 94 and creatinine of 3.46 but last values were over 1 year ago and creatinine was around 1.2, no values in between are available -Has been reported that patient's had poor p.o. intake and suspect there is possibly a component of CKD likely also worsened from baseline due to dehydration -IV fluids, appears patient was prescribed lasix 12/30, discontinued 01/07 physiotherapy practice manager consulted. # MS and chronic pain -Patient on hospice due to her MS and chronic pain -Revoking hospice for admission -Patient will need to be reevaluated for hospice appropriateness prior to discharge from our institution -Case management consult # Chronic indwelling Valenzuela -UA with some leuk esterase and white blood cells but nitrite negative and no bacteria seen -Valenzuela changed in ED -CT of the abdomen did show bilateral kidney stones with internal ureteral stents bilaterally, small stones outside lumen of the stent on left and right and some probable peristent calcifications -Discussed with son, they would only like things directly associated with the pain or mental status to be addressed at this time #Type 2 diabetes mellitus -Glucose checks and sliding scale insulin -Awaiting med rec update #Hypothyroidism -Continue Synthroid if still applicable #GERD -Continue PPI if applicable #Depression/anxiety -Awaiting med rec update for final reconciliation #DVT ppx: Heparin subcu Microbiology Past 72 Hours 01/07/24 23:45 Wound - Buttock Gram Stain - Final 01/07/24 15:44 Urine, Catheterized Urine Culture - Preliminary Gram negative alfie Laboratory Results 01/07/24 14:35: WBC 14.1 H, RBC 4.18 L, Hgb 12.6, Hct 40.0, MCV 95.7, MCH 30.1, MCHC 31.5 L, RDW Std Deviation 50.6 H, RDW Coeff of Mele 14.5, Plt Count 499 H, MPV 9.2, Sodium 132 L, Potassium 4.1, Chloride 103, Carbon Dioxide 14.0 L, Anion Gap 15, BUN 94 H, Creatinine 3.46 H, Estim Creat Clear Calc 15.90, Est GFR (MDRD) Af Amer 17 L, Est GFR (MDRD) Non-Af 14 L, BUN/Creatinine Ratio 27.2 H, G lucose 144 H, Calcium 8.8, Total Bilirubin 0.30, Direct Bilirubin 0.14, AST 10 L , ALT < 6 L, Alkaline Phosphatase 100, Total Creatine Kinase 72, Troponin I High Sens 9, Total Protein 7.8, Albumin 2.1 L, Globulin 5.7 H, Lipase 21 01/07/24 15:44: Urine Color Yellow, Urine Clarity Turbid, Urine pH 7.0, Ur Specific [place] 1.010, Urine Protein 500 H, Urine Glucose (UA) Normal, Urine Ketones 5 H, Urine Occult Blood 250 H, Urine Nitrite Negative, Urine Bilirubin Negative, Urine Urobilinogen Normal, Ur Leukocyte Esterase 500 H, Urine RBC 0 SEEN, Urine WBC >100 SEEN, Ur Squamous Epith Cells 0 SEEN, Urine Bacteria 0 SEEN, Urine Mucus 0 SEEN 01/07/24 18:00: Lactic Acid 1.9 01/08/24 05:20: WBC 14.1 H, RBC 4.12 L, Hgb 12.5, Hct 39.6, MCV 96.1, MCH 30.3, MCHC 31.6 L, RDW Std Deviation 51.2 H, RDW Coeff of Mele 14.6, Plt Count 399, MPV 9.1, Immature Gran % (Auto) 1.700 H, Neut % (Auto) 81.6 H, Lymph % (Auto) 6.3 L, [place] % (Auto) 8.2, Eos % (Auto) 1.5, Baso % (Auto) 0.7, Absolute Neuts (auto) 11.5 H, Absolute Lymphs (auto) 0.88, Nucleated RBC % 0 01/08/24 05:40: Sodium 134 L, Potassium 3.8, Chloride 109 H, Carbon Dioxide 12.0 L, Anion Gap 13, BUN 92 H, Creatinine 3.11 H, Estim Creat Clear Calc 17.27, Est GFR (MDRD) Af Amer 20 L, Est GFR (MDRD) Non-Af 16 L, BUN/Creatinine Ratio 29.6 H , Glucose 130 H, Calcium 8.3 L, TSH 4.090 H 01/08/24 08:24: POC Glucose 123 H 01/08/24 12:43: PT 15.8 H, INR 1.3 01/08/24 13:19: POC Glucose 130 H Charges/Coding Visit Charges Inpatient E&M: 10867 Init Hosp L3 Procedures Hospitalists Procedures: 23450 Advncd Care Plan 30 Min
--- NOTE | 2024-01-08 18:01 | PCM.CONS.R ---
Assessment & Plan Assessment/Plan (1) EDWINA (acute kidney injury): (2) Chronic kidney disease, stage 3a: (3) Acute metabolic acidosis: (4) Kidney stones: PLAN: Plan Impression/Plan: The patient is a 63-year-old female with past history of multiple sclerosis complicated by urinary retention requiring chronic Valenzuela catheter, hypothyroidism, GERD, generalized anxiety disorder, and major depressive disorder. The patient presented to hospital on 01/07/2024 with altered mental status. She was also found to be hypotensive with systolic blood pressure less than 100 mmHg. The patient is being treated for septic shock due to either UTI and/or infected decubitus ulcers. Nephrology is following for EDWINA on CKD. Acute kidney injury on chronic kidney disease stage G3a. Last available serum creatinine from August 2022 was 1.22 mg/dL. Serum creatinine is 3.11 mg/dL today on 01/08/2024. EDWINA is likely due to ischemic ATN from septic shock. Patient also has bilateral pelviectasia of the kidneys on CT abdomen. There is mild left hydronephrosis. Therefore, patient may also possibly have obstructive EDWINA particularly if ureteral stents have not been functioning well. It is unclear on review of record when ureteral stents were placed. Patient continues to require IV vasopressor. Okay to continue following expansion as well as patient does not appear to be volume overloaded. Keep MAP above 65 mmHg. There is no urgent need for kidney replacement therapy, but patient is at high risk for progression of kidney dysfunction. Will continue to monitor renal function, volume status, acid-base and electrolytes. Acute metabolic acidosis. Bicarbonate level is 12 mmol/L today. There is no urgent need for sodium bicarbonate supplementation. Will continue to monitor serum bicarbonate. Will check VBG tomorrow. If pH of VBG is less than 7.2, patient would benefit from sodium bicarbonate infusion based on BICAR-ICU study. Nephrolithiasis. Patient has bilateral staghorn calcification/nephrolithiasis. She also has bilateral ureteral stents. There is bilateral pelviectasia of both kidneys with mild left hydronephrosis. Given septic shock, it may be prudent to remove the ureteral stents and possibly place bilateral nephrostomy tubes instead. Patient would benefit from urology consultation. Septic shock secondary to complicated UTI versus soft tissue infection. Patient is requiring IV vasopressor support. Antimicrobial coverage as per primary services. As discussed above, patient may benefit from urology opinion regarding need to remove ureteral stent given ongoing sepsis. HPI Consult Data Date of Consult: 01/08/24 HPI Narrative Reason for Consultation: EDWINA on CKD HPI Narrative: The patient is a 63-year-old female with past history of multiple sclerosis complicated by urinary retention requiring chronic Valenzuela catheter, hypothyroidism, GERD, generalized anxiety disorder, and major depressive disorder. The patient presented to hospital on 01/07/2024 with altered mental status. She was also found to be hypotensive with systolic blood pressure less than 100 mmHg. The patient is being treated for septic shock due to either UTI and/or infected decubitus ulcers. Nephrology is consulted to see the patient because of EDWINA on CKD. The patient presented to hospital on 01/07/2024 with serum creatinine of 3.46 mg/dL. Last available serum creatinine from 09/11/2022 was 1.22 mg/dL. Serum creatinine is stabilized at 3.11 mg/dL today on 01/08/2024. However, she has been oliguric since admission. BP has remained soft. Patient denies current chest pain, shortness of breath at rest, or nausea. Appetite has been poor. She does have lower extremity edema with decubitus wound on the posterior aspect of the legs. [facility] Medical History (Updated 01/08/24 @ 23:[address] Vale Barrientos MD) Diabetes Current use of insulin Hoarseness Acute on chronic urinary retention Neurogenic bladder Vitamin A deficiency Kidney stones Family history of MS (multiple sclerosis) Hyponatremia Muscle spasm Bedbound Anxiety Depression Bilateral knee pain Polyneuropathy Fatigue Multiple sclerosis delivery delivered History of multiple sclerosis Morbid obesity MDRO (multiple drug resistant organisms) resistance Lymphedema Type II diabetes mellitus Home Medications ?Medication ?Instructions ?Recorded ?Last Taken ?Type levothyroxine 50 mcg tablet 50 mcg PO DAILY thyroid 12/21/19 12/02/21 History (Synthroid) duloxetine 60 mg capsule,delayed 60 mg PO BID unsure #180 caps 06/30/21 12/02/21 Rx release atorvastatin 80 mg tablet 80 mg PO DAILY cholesterol 12/03/21 12/02/21 History esomeprazole magnesium 40 mg 40 mg PO DAILY stomach 12/03/21 12/02/21 History capsule,delayed release furosemide 40 mg tablet 80 mg PO BREAKFAST fluid 12/03/21 12/02/21 History metformin 1,000 mg tablet 1,000 mg PO BID DM 12/03/21 12/02/21 History oxycodone-acetaminophen 5 mg-325 1 tab PO TID PRN MS 12/03/21 12/03/21 History mg tablet semaglutide 1 mg/dose (4 mg/3 mL) 1 mg subcut QWEEK dm 12/03/21 08/29/22 History subcutaneous pen injector (Ozempic) buspirone 5 mg tablet 5 mg PO BID pt unsure #60 tabs 02/04/22 Unknown Rx ondansetron 4 mg disintegrating 4 mg PO Q4H PRN PRN Nausea #10 tabs 06/09/22 Unknown Rx tablet midodrine 10 mg tablet 10 mg PO BID Check with primary 08/11/22 Unknown History doctor insulin degludec 200 unit/mL (3 20 unit (0.1 mL) subcut QHS dm #9 09/11/22 12/02/21 Rx mL) subcutaneous pen (Tresiba mL FlexTouch U-200 insulin) levofloxacin 250 mg tablet 250 mg PO DAILY@0600 #5 tabs 09/11/22 Unknown Rx acetaminophen 650 mg 650 mg PO Q12H 02/09/23 Unknown History tablet,extended release (Tylenol Arthritis Pain) baclofen 10 mg tablet 10 mg PO BID 02/09/23 Unknown History baclofen 10 mg tablet 10 mg PO DAILY PRN Muscle Spasm 02/09/23 Unknown History ferrous sulfate 325 mg (65 mg 325 mg PO DAILY 02/09/23 Unknown History iron) tablet (FeroSul) glimepiride 4 mg tablet 4 mg PO BID 02/09/23 Unknown History lorazepam 0.5 mg tablet (Ativan) 0.5 mg PO DAILY PRN 02/09/23 Unknown History sennosides 8.6 mg tablet (Senna 8.6 mg PO DAILY PRN 02/09/23 Unknown History Lax) ocrelizumab 30 mg/mL intravenous See Rx Instructions .Route 12/26/23 Unknown Rx solution (Ocrevus) .COMPLEX #10 mL Allergy/AdvReac Type Severity Reaction Status Date / Time ampicillin (From Unasyn) Allergy Severe Rash Verified 01/07/24 13:05 sulbactam (From Unasyn) Allergy Severe Rash Verified 01/07/24 13:05 ciprofloxacin (From Cipro) Allergy Hives Verified 01/07/24 13:05 ciprofloxacin HCl (From Allergy Hives Verified 01/07/24 13:05 Cipro) clindamycin HCl (From Allergy Hives Verified 02/09/23 08:49 Cleocin) clindamycin palmitate HCl Allergy Hives Verified 01/07/24 13:05 (From Cleocin) clindamycin phosphate (From Allergy Hives Verified 01/07/24 13:05 Cleocin) morphine Allergy Hives Verified 01/07/24 13:05 sulfamethoxazole (From Allergy Hives Verified 01/07/24 13:05 Bactrim) trimethoprim (From Bactrim) Allergy Hives Verified 01/07/24 13:05 hydromorphone HCl (From AdvReac messes Verified 01/07/24 13:05 Dilaudid) with my brain Family History Unknown Multiple sclerosis 1st cousin Father Cancer credit union field examiner, black lung, Lung CA. Mother Heart disease Diabetes Heart failure Surgical History H/O hernia repair History of cholecystectomy Social History household members: spouse Smoking Status: Never smoker alcohol intake: never substance use type: does not use ROS ROS Narrative As per HPI, otherwise noncontributory. Physical Exam Narrative General: Ill-appearing, NAD. HEENT: Normocephalic, atraumatic. Mucous membrane dry. PERRLA, EOMI. Neck: Supple, no JVD. Heart: Normal S1, S2. No rubs, murmurs or gallops. Lungs: Clear to auscultation anteriorly. Abdomen: Normal bowel sounds, soft, nontender, no guarding or rebound. Extremities: There is 2+ edema of the lower extremity bilaterally. No guarding or rebound. Neurologic: No focal neurologic deficit. Psychiatric: Flat affect. Lab / Micro Data 01/08/24 05:20 01/08/24 05:40 Labs: Laboratory Results - last 24 hr 01/07/24 18:00: Lactic Acid 1.9 01/08/24 05:20: WBC 14.1 H, RBC 4.12 L, Hgb 12.5, Hct 39.6, MCV 96.1, MCH 30.3, MCHC 31.6 L, RDW Std Deviation 51.2 H, RDW Coeff of Mele 14.6, Plt Count 399, MPV 9.1, Immature Gran % (Auto) 1.700 H, Neut % (Auto) 81.6 H, Lymph % (Auto) 6.3 L, [place] % (Auto) 8.2, Eos % (Auto) 1.5, Baso % (Auto) 0.7, Absolute Neuts (auto) 11.5 H, Absolute Lymphs (auto) 0.88, Nucleated RBC % 0 01/08/24 05:40: Sodium 134 L, Potassium 3.8, Chloride 109 H, Carbon Dioxide 12.0 L, Anion Gap 13, BUN 92 H, Creatinine 3.11 H, Estim Creat Clear Calc 17.27, Est GFR (MDRD) Af Amer 20 L, Est GFR (MDRD) Non-Af 16 L, BUN/Creatinine Ratio 29.6 H, Glucose 130 H, Calcium 8.3 L, TSH 4.090 H 01/08/24 08:24: POC Glucose 123 H 01/08/24 12:43: PT 15.8 H, INR 1.3 01/08/24 13:19: POC Glucose 130 H Micro: Microbiology 01/07/24 23:45 Wound - Buttock Gram Stain - Final 01/07/24 15:44 Urine, Catheterized Urine Culture - Preliminary Gram negative alfie
[2024-01-08 18:43] LABS: Bedside Glucose 117 mg/dL (74-106)
--- NOTE | 2024-01-08 19:11 | NURSING ---
Contacted Son, Marshall to get home med.
[2024-01-08] MEDS: Albumin Human 25% (100 mL) 25 GM/100 ML BAG IV (22:43)
[2024-01-08] MEDS: Norepinephrine 8 MG in 0.9% Normal Saline (250mL Bag) 242 ML 26.3 MG CONT INF (22:45)
[2024-01-09] VITALS (40 sets, daily range): BP systolic 90–156; BP diastolic 47–138; PULSE 50–137; RESP 9–34; TEMP 35.8–36.6; O2SAT 96–100; BMI 34.9
[2024-01-09] MEDS: LORazepam 2 MG/ML Syringe 0.5 MG IV (01:57)
[2024-01-09] MEDS: fentaNYL 100 MCG/2 ML Ampul 50 MCG IV (02:20)
[2024-01-09] MEDS: fentaNYL 100 MCG/2 ML Ampul 25 MCG IV (04:00)
--- NOTE | 2024-01-09 04:12 | PN.HOSP_ITS ---
Hospitalist Note I was called by OUTSIDE FOOD SERVER and informed patient was still requiring Levophed at 15 to maintain a MAP greater than 65 mmHg. Review of the records show a PICC line was unable to be placed earlier in the day and dayshift hospitalist was able to obtain consent for central line. Patient was prepped and draped in sterile fashion in then two attempts to place central venous catheter with ultrasound guidance were performed. The first attempt was in the Right femoral which was not successful. Then a second attempt was made in the Right IJ with vein accessed but guidewire unable to be threaded. Every effort was made to obtain central venous access without success. The patient was pretreated with 0.5 mg of IV Ativan and then required 2 mg of morphine to control pain. A follow-up chest x-ray was ordered to ensure no there were no acute pathologic changes with imaging reviewed and shows no acute pathologic changes. EBL ~5 cc. I would like to especially thank the ICU RNs who helped me during this procedure.
--- NOTE | 2024-01-09 04:25 | RAD_ITS ---
EXAM: XR CHEST, 1 VIEW CLINICAL INDICATION: Line access TECHNIQUE: Frontal view of the chest. COMPARISON: Single view chest 01/07/2024 FINDINGS: LUNGS AND PLEURAL SPACES: Unremarkable. No consolidation or edema. No pneumothorax. No effusion. HEART: Unremarkable. Cardiac silhouette not enlarged. MEDIASTINUM: Central airways and mediastinal contour are unremarkable. BONES/JOINTS: Unremarkable. No acute fracture. SOFT TISSUES: Unremarkable. RAD/Chest 1 View (Portable) IMPRESSION: No radiographic evidence of acute cardiopulmonary disease. Electronically Signed: Mohamud Hendrix MD at 6:55 EST ,
[2024-01-09] MEDS: Vancomycin Trough/Random Due 1 LAB MC (05:23)
[2024-01-09 05:43] LABS: Blood Gas Specimen Type VEN; O2 Delivery Device Not entered; SITE Not entered; VBG BASE EXCESS -19 mmol/L (-1.0-3.5); VBG Bicarbonate 10 mmol/L (22-26); VBG PO2 77 mmHg (25-40); VBG SO2 90 % (50-70); VBG TCO2 11 mmol/L (23-33); VBG pCO2 31.9 mmHg (41-51); VBG pH 7.12 (7.32-7.42)
[2024-01-09 05:48] LABS: Absolute Lymphocyte Count 0.81 X10^3/uL (0.83-4.51); Absolute Neutrophil Count 10.9 X10^3/uL (2.0-7.7); Basophil% 0.7 % (0-1); Eosinophil# 0.45 X10^3/uL; Eosinophils% 3.4 % (0-5); Hematocrit 30.7 % (37-47); Hemoglobin 9.4 g/dL (12.0-15.0); Lymphocyte # 0.81 X10^3/ul (0.83-4.51); Lymphocyte % 6.1 % (19-41); Mean Corp Hgb Conc 30.6 g/dL (32-36); Mean Corpuscular Hgb 29.6 pg (27.0-32.0); Mean Corpuscular Volume 96.5 fL (81-99); Mean Platelet Vol. 9.1 fl (6.2-12.0); Monocyte# 0.86 X10^3/uL; Monocyte% 6.4 % (0-10); NRBC Flagged by Analyzer 0 % (0-5); Neutrophil # 10.93 X10^3/uL (2.7-7.7); Neutrophil % 81.7 % (47-70); Platelet Count 440 K/mm3 (150-450); RBC Distribution Width CV 14.6 % (11.6-14.6); RBC Distribution Width SD 51.5 fl (35.1-43.9); Red Blood Count 3.18 M/mm3 (4.2-5.4); White Blood Count 13.4 K/mm3 (4.4-11.0)
[2024-01-09 06:01] LABS: Albumin, Serum 2.2 g/dL (3.2-5.0); BUN 84 mg/dL (7-18); BUN/Creat Ratio 28.2 RATIO (10-20); Chloride 110 mmol/L (98-107); Creatinine, Serum 2.98 mg/dL (0.55-1.02); EST Glomerular Filtration Rate 17 mL/min (>60); Est Glom Filt Rate - Afr Amer 21 mL/min (>60); Estimated Creatinine Clearance 18.37 ml/min; Glucose 157 mg/dL (74-106); Phosphorus 3.5 mg/dL (2.5-4.9); Potassium 3.6 mmol/L (3.5-5.1); Sodium Level 137 mmol/L (136-145)
[2024-01-09 06:13] LABS: ALB/GLOB Ratio 0.5 RATIO (0.9-2.4); AST(SGOT) 7 U/L (15-37); Alanine Aminotransfer ALT/SGPT < 6 U/L (13-56); Albumin, Serum 2.2 g/dL (3.2-5.0); Alkaline Phosphatase 87 U/L (45-117); Anion Gap 15 (5-15); BUN 87 mg/dL (7-18); BUN/Creat Ratio 29.9 RATIO (10-20); Calcium,Total 8.2 mg/dL (8.5-10.1); Chloride 109 mmol/L (98-107); Creatinine, Serum 2.91 mg/dL (0.55-1.02); EST Glomerular Filtration Rate 17 mL/min (>60); Est Glom Filt Rate - Afr Amer 21 mL/min (>60); Estimated Creatinine Clearance 18.81 ml/min; Globulin 4.1 g/dL (2.2-4.2); Glucose 160 mg/dL (74-106); Potassium 3.5 mmol/L (3.5-5.1); Protein, Total 6.3 g/dL (6.4-8.2); Sodium Level 135 mmol/L (136-145)
[2024-01-09] MEDS: Naloxone 0.4 MG/ML Syringe IV (06:18)
--- NOTE | 2024-01-09 06:20 | PCM.RX.CS ---
Consult Antibiotic Management Pharmacy has been consulted to manage selected antibiotic: Vancomycin Type of Intervention Type of Consult: Follow-up Suspected Infection Suspected Infection: Sepsis Labs Labs: Sodium 135 mmol/L (136-145) L 01/09/24 05:30 Sodium 137 mmol/L (136-145) 01/09/24 05:30 Potassium 3.5 mmol/L (3.5-5.1) 01/09/24 05:30 Potassium 3.6 mmol/L (3.5-5.1) 01/09/24 05:30 Chloride 109 mmol/L (98-107) H 01/09/24 05:30 Chloride 110 mmol/L (98-107) H 01/09/24 05:30 Carbon Dioxide 11.0 mmol/L (21.0-32.0) L 01/09/24 05:30 Carbon Dioxide 12.0 mmol/L (21.0-32.0) L 01/09/24 05:30 Anion Gap 15 (5-15) 01/09/24 05:30 BUN 84 mg/dL (7-18) H 01/09/24 05:30 BUN 87 mg/dL (7-18) H 01/09/24 05:30 Creatinine 2.91 mg/dL (0.55-1.02) H 01/09/24 05:30 Creatinine 2.98 mg/dL (0.55-1.02) H 01/09/24 05:30 Est GFR (MDRD) Af Amer 21 mL/min (>60) L 01/09/24 05:30 Est GFR (MDRD) Af Amer 21 mL/min (>60) L 01/09/24 05:30 Est GFR (MDRD) Non-Af 17 mL/min (>60) L 01/09/24 05:30 Est GFR (MDRD) Non-Af 17 mL/min (>60) L 01/09/24 05:30 BUN/Creatinine Ratio 28.2 RATIO (10-20) H 01/09/24 05:30 BUN/Creatinine Ratio 29.9 RATIO (10-20) H 01/09/24 05:30 Glucose 157 mg/dL (74-106) H 01/09/24 05:30 Glucose 160 mg/dL (74-106) H 01/09/24 05:30 Random Vancomycin 12.0 ug/mL (0.0-15.0) 01/09/24 05:30 Microbiology Microbiology: Microbiology 01/07/24 23:45 Wound - Buttock Gram Stain - Final 01/07/24 15:44 Urine, Catheterized Urine Culture - Preliminary Gram negative alfie Dosing Weight Weight used for dosin.5 kg Estimated Creatinine Clearance Estimated Creatinine Clearance: 18.8 Goal Trough Goal Trough: 15-20 mcg/mL Pharmacy Plan for Drug Dosing Pharmacy Plan for Drug Dosing: Random vancomycin level was 12.0. CrCl still remains <20, at 18.8, so a one time vanco dose of 1250mg will be given. Another random level will be drawn with tomorrow's morning labs to determine further orders. Pharmacy Service will continue to monitor and adjust dosing as required. Follow-Up Labs Follow-Up Labs: Trough: Vancomycin (random) Date/Time Labs Ordered Labs to be done on [date and time ordered]: 01/10/24 @0600 (random)
--- NOTE | 2024-01-09 06:32 | CPS ---
Critical VBG results Dr. Gambino aware.
[2024-01-09 06:33] LABS: Allen Test Positive; Base Excess -19 mmol/L (-2 to +2); Bicarbonate 9.6 mmol/L (22-26); Blood Gas Specimen Type ART; Mode Not entered; O2 Delivery Device Room Air; PO2 103 mmHG (75-100); SITE R Radial; SO2 97 % (95-99); Total Carbon Dioxide 10 mmol/L; pCO2 24.6 mmHg (35-45)
[2024-01-09] MEDS: Etomidate 20 MG/10 ML Vial 10 MG IV (06:48)
--- NOTE | 2024-01-09 06:57 | NURSING ---
Intubation Note Dr. Dudley at bedside 0646: 10 mg Etomidate IV 0648: 7.5 ETT, 22 @ the lip, positive color change and breath sounds heard bilaterally 0650: restraints applied to maintain line integrity 0650: OG tube inserted stat CXR for line placement ordered
[2024-01-09] MEDS: Ondansetron 4 MG/2 ML Vial IV (07:01)
[2024-01-09] MEDS: dexMEDEtomidine 400 MCG in 0.9% Normal Saline (100mL Bag) 96 ML 9.8 MCG CONT INF (07:02)
[2024-01-09] MEDS: Sodium Bicarbonate 150 MEQ in Dextrose 5%-Water (1000mL Bag) 1,000 ML IV ×2 (07:04→16:53)
[2024-01-09] MEDS: Sodium Bicarbonate 8.4% 50 ML Syringe 50 MEQ IV (07:05)
--- NOTE | 2024-01-09 07:10 | RAD_ITS ---
EXAM: XR CHEST, 1 VIEW CLINICAL INDICATION: intubation TECHNIQUE: Frontal view of the chest. COMPARISON: Single view chest 01/09/2024 FINDINGS: LUNGS AND PLEURAL SPACES: Unremarkable. No consolidation or edema. No pneumothorax. No effusion. HEART: Unremarkable. Cardiac silhouette not enlarged. MEDIASTINUM: Central airways and mediastinal contour are unremarkable. BONES/JOINTS: Unremarkable. No acute fracture. SOFT TISSUES: Unremarkable. TUBES, LINES AND DEVICES: Endotracheal tube with tip 1.8 cm above the megan. Enteric tube with tip in the body of the stomach. RAD/CXR for Line Placement IMPRESSION: Endotracheal tube with tip 1.8 cm above the megan. Electronically Signed: Mohamud Hendrix MD at 7:52 EST ,
--- NOTE | 2024-01-09 07:28 | PN.HOSP_ITS ---
Hospitalist Note I was contacted by the respiratory therapist and informed this patient had ABG of severe metabolic acidosis with pH down to 7.12 with patient becoming increasingly confused and agitated. I spoke with the patient about being intubated and she was in agreement. I then spoke to her son who is her medical decision-maker who also agreed that he would like his mother to be intubated if it was medically necessary. She then was intubated with a glide scope on the first attempt after being induced with 10 mg of etomidate. As soon as OG tube was placed ~500 cc of dark bloody material was aspirated within the first few minutes of tube placement indicating suspected GI bleeding with patient having complained of severe abdominal pain prior to intubation. She was then started on IV Protonix with consultation placed to gastroenterology for possible EGD this admission. A review of patient's previous notes showed nephrology recommended sodium bicarbonate drip be started for pH less than 7.2 so this was done. Repeat ABG was ordered for 8 AM. Chest x-ray prior to intubation noted below shows no acute pathologic changes. Repeat chest x-ray is pending final read at this time which reveals ET tube ~4 cm above the megan and OG tube below the diaphragm in good position. [facility] updated with overnight events. Finally, I would like to thank the respiratory therapists and ICU RNs and assisted with the procedure for their outstanding care. [facility] Imaging Services [address] [place], [place] [address] Chest 1 View (Portable) MR#: [id number] Acct: [id number] Name: EDGARKellyMARIA D B Rep #: [id number] : 1960 F 63 From: Mohamud Hendrix MD PCP: LAURA FLORES Status: ADM IN Study: Chest 1 View (Portable) Date of Exam: 01/09/24 Exam# [id number] Ordering Dr: Ahsan Dudley DO EXAM: XR CHEST, 1 VIEW CLINICAL INDICATION: Line access TECHNIQUE: Frontal view of the chest. COMPARISON: Single view chest 01/07/2024 FINDINGS: LUNGS AND PLEURAL SPACES: Unremarkable. No consolidation or edema. No pneumothorax. No effusion. HEART: Unremarkable. Cardiac silhouette not enlarged. MEDIASTINUM: Central airways and mediastinal contour are unremarkable. BONES/JOINTS: Unremarkable. No acute fracture. SOFT TISSUES: Unremarkable. RAD/Chest 1 View (Portable) IMPRESSION: No radiographic evidence of acute cardiopulmonary disease. Electronically Signed: Mohamud Hendrix MD at 6:55 EST , CC: LAURA BUNCH; Dr. Ahsan Dudley, DO ~ Supervisor [employer]: Signed
[2024-01-09] MEDS: Lidocaine 1% (20 ml mdv) 20 ML Vial INFILT (08:30)
--- NOTE | 2024-01-09 08:52 | PCM.OP.PRO2 ---
Problems Associated Problem List Diagnoses (1) Septic shock: Non-invasive Procedure Procedure Information Procedure Performed:: Left IJ central venous catheter Surgeon/Practitioner: Elias Grande Date of Procedure: 01/09/24 Procedure Time Out: :10 Procedure Start Time: 08:15 Procedure Stop Time: :30 Description of procedure: Central venous catheter left IJ. My colleague nighttime hospitalist already tried right IJ and right femoral which was unsuccessful after multiple attempts. Left neck was visualized with portable ultrasound and left IJ watch marked. Under strict sterilization and aseptic precaution, left and right neck including subclavicular area was sterilized and draped as a standard procedure. Left neck was locally anesthetized with lidocaine 1%. Left IJ and common carotid was identified under ultrasound. Under direct visualization of ultrasound, left IJ was cannulated and good continuous blood flow was aspirated. Guidewire was passed through the needle and then dilated. Triple-lumen catheter was passed through the guidewire. Good blood flow was returned from all 3 ports and then TLC catheter was sutured and fixed. Dressing was done. Portable chest x-ray was ordered Procedures Hospitalists Procedures: [id number] Insert Non-tunnel CV Cath
--- NOTE | 2024-01-09 08:59 | PCM.PN.HOSP ---
Reason for Visit Reason for Visit: Diagnoses Acute metabolic acidosis (01/07/24) Local infection of the skin and subcutaneous tissue, unspecified (01/07/24) Pressure ulcer of unspecified site, unspecified stage (01/07/24) Acute kidney failure, unspecified (01/07/24) Chronic kidney disease, stage 3a (01/07/24) Calculus of kidney (01/07/24) Objective Data Objective Data Vital Signs: Vital Signs Temp Pulse Resp BP Pulse Ox O2 Del Method FiO2 97.4 F L 123 H 20 H 132/76 H 98 Mechanical Ventilator 01/09/24 05:00 01/09/24 07:30 01/09/24 07:30 01/09/24 07:30 01/09/24 07:30 01/09/24 07:30 01/09/24 07:30 Oxygen Delivery Method Mechanical Ventilator Weight: 173 lb 1.006 oz Body Mass Index (BMI) 34.9 Intake & Output: Intake and Output for Last 24 Hours 01/07/24 01/08/24 01/09/24 23:59 23:59 23:59 Intake Total 2375 / 2525 2652.01 / 2658.59 321.56 / 321.56 Output Total 530 / 580 175 / 175 Balance 2375 / 2525 2122.01 / 2078.59 146.56 / 146.56 Lab / Micro Data 01/09/24 05:30 01/09/24 05:30 Labs: Laboratory Results - last 24 hr 01/08/24 08:24: POC Glucose 123 H 01/08/24 12:43: PT 15.8 H, INR 1.3 01/08/24 13:19: POC Glucose 130 H 01/08/24 16:46: POC Glucose 117 H 01/09/24 05:30: WBC 13.4 H, RBC 3.18 L, Hgb 9.4 L, Hct 30.7 L, MCV 96.5, MCH 29.6, MCHC 30.6 L, RDW Std Deviation 51.5 H, RDW Coeff of Mele 14.6, Plt Count 440, MPV 9.1, Immature Gran % (Auto) 1.700 H, Neut % (Auto) 81.7 H, Lymph % (Auto) 6.1 L, Josephine % (Auto) 6.4, Eos % (Auto) 3.4, Baso % (Auto) 0.7, Absolute Neuts (auto) 10.9 H, Absolute Lymphs (auto) 0.81 L, Nucleated RBC % 0, Sodium 137 01/09/24 05:30: Sodium 135 L, Potassium 3.6 01/09/24 05:30: Potassium 3.5, Chloride 110 H 01/09/24 05:30: Chloride 109 H, Carbon Dioxide 12.0 L 01/09/24 05:30: Carbon Dioxide 11.0 L, Anion Gap 15, BUN 84 H 01/09/24 05:30: BUN 87 H, Creatinine 2.98 H 01/09/24 05:30: Creatinine 2.91 H, Estim Creat Clear Calc 18.37 01/09/24 05:30: Estim Creat Clear Calc 18.81, Est GFR (MDRD) Af Amer 21 L 01/09/24 05:30: Est GFR (MDRD) Af Amer 21 L, Est GFR (MDRD) Non-Af 17 L 01/09/24 05:30: Est GFR (MDRD) Non-Af 17 L, BUN/Creatinine Ratio 28.2 H 01/09/24 05:30: BUN/Creatinine Ratio 29.9 H, Glucose 157 H 01/09/24 05:30: Glucose 160 H, Calcium 8.0 L 01/09/24 05:30: Calcium 8.2 L, Phosphorus 3.5, Total Bilirubin 0.50, AST 7 L, ALT < 6 L, Alkaline Phosphatase 87, Total Protein 6.3 L, Albumin 2.2 L 01/09/24 05:30: Albumin 2.2 L, Globulin 4.1, Albumin/Globulin Ratio 0.5 L, Random Vancomycin 12.0 Micro: Microbiology 01/07/24 23:45 Wound - Buttock Gram Stain - Final 01/07/24 15:44 Urine, Catheterized Urine Culture - Preliminary Gram negative alfie ABG Data ABG results: ABG 01/09/24 01/09/24 05:40 06:29 Specimen Type NANO ART Sample Site Not entered R Radial pH 7.20 L Bicarbonate Actual 9.6 L Total CO2 10 Base Excess -19 L O2 Saturation 97 O2 % 21.0 ABG pCO2 24.6 L ABG pO2 103 H Barak Test Positive VBG pH 7.12 L* VBG pO2 77 H VBG HCO3 10 L VBG Total CO2 11 L VBG O2 Sat (Calc) 90 H VBG Base Excess -19 L POC Mix VBG pCO2 Pt Tmp 31.9 L O2 Delivery Device Not entered Room Air Vent Mode Not entered Crit Call To/Read Back Yes Yes Blood Gas Notified Whom [place] Blood Gas Notified Time 06:30:47 Radiography Diagnostic Testing: Radiology Impression Chest X-Ray 01/09/24 04:25 IMPRESSION: No radiographic evidence of acute cardiopulmonary disease. Electronically Signed: Mohamud Hendrix MD at 6:55 EST Reading Location ID and State: [facility] / [place] Tel , Service support , Chest X-Ray 01/09/24 07:10 IMPRESSION: Endotracheal tube with tip 1.8 cm above the megan. Electronically Signed: Mohamud Hendrix MD at 7:52 EST Reading Location ID and State: [facility] / [place] Tel , Service support , Physical Exam Narrative Seen and examined. Overnight events noticed. Patient required 15 mcg of norepinephrine drip. ABG showed severe metabolic acidosis and pH 7.12 patient was increasingly confused and is irritated. Patient was intubated by nighttime hospitalist under Glydo scope after 10 mg of etomidate. When OG was 500 cc of dark bloody material was aspirated and GI was consulted. Patient put on IV Protonix. Left IJ and femoral was also attempted multiple times unsuccessfully therefore left IJ was tried and set up Physical exam General: Sedated, intubated. HEENT: Atraumatic, PERRLA, EOMI, Normocephalic Oral: ET and OG tube Neck: Right neck no hematoma. Left IJ CVC catheter just inserted supple, No JVD, Negative Carotid Bruits Chest wall/Lungs: Air entry diminished in bilateral lung bases. On vent support Cardiovascular: Muffled heart sound. Systolic murmur present. On Levophed. Abdomen: Bowel Sounds Present, Soft, Non Tender, Non-Distended : No dysuria. No renal angle tenderness. No suprapubic tenderness. Extremities: Mild edema, Capillary Refill Less than 3 Seconds Skin: Multiple decubitus ulcers on back and buttock. 1 ulcer is tunneled Musculoskeletal: No Tenderness to Palpation of Joints or Extremities. ROM restricted Neurological: Detailed neuroexam unobtainable. Sedated Psych/Mental Status: Was agitated last night. Saline Assessment & Plan Assessment/Plan (1) Septic shock: PLAN: Plan # Septic shock possibly due to UTI/multiple decubitus ulcers with concern for infection: Patient is being admitted in ICU. Mold Inspector consulted. -Patient with white blood cell count of 14.1 with some drainage from decubitus ulcers. Blood cultures, wound culture and sepsis workup -Wound care consult. Urine looks purulent -IV antibiotics, patient's allergies and hx noted - The patient presented with sepsis with clinical indicators hypotension, altered mental status of due to multiple decubitus ulcer/UTI with acute sepsis-related organ dysfunction as evidenced by hypotension requiring IV pressor, EDWINA on CKD and altered mental status 01/08: The patient's requirement of vasopressor went up to 15 mcg of Levophed. Overnight right IJ and femoral were attempted unsuccessfully. In the morning therefore left IJ CVC catheter was inserted by me. Portable chest x-ray does not show pneumothorax and left IJ tip at cavoatrial junction. Urine culture prelim shows GNR 50,000?80,000 colonies. Prelim sputum culture shows Gram stains no organism. Previous urine culture of 09/05/2022 shows Pseudomonas and Citrobacter. On IV cefepime and vancomycin. Acute GI bleed most likely upper GI bleed: As documented by my colleague, there was about 500 mL of dark blood from OG tube. Patient put on IV Protonix drip. GI consulted. Acute hypoxic respiratory failure with severe high anion gap metabolic acidosis: ABG showed pH 7.22 with patient was increasingly confused and agitated. Patient was intubated ventilated. Mold Inspector is on board. Repeat ABG shows 7.17/24.8/96.9/97. Bicarb and anion gap in BMP is 11 and 15 suggestive of high anion gap metabolic acidosis. ABG analysis shows high anion gap metabolic acidosis with calculated pCO2 24. Patient on bicarb drip. # Decreased level of consciousness/acute encephalopathy -Suspect multifactorial due to pain and anxiety medication in addition to underlying infection # EDWINA versus CKD -Pt w/ BUN of 94 and creatinine of 3.46 but last values were over 1 year ago and creatinine was around 1.2, no values in between are available -Has been reported that patient's had poor p.o. intake and suspect there is possibly a component of CKD likely also worsened from baseline due to dehydration -IV fluids, appears patient was prescribed lasix 12/30, discontinued 01/07 tire builder heavy service consulted. 01/08: Discussed with the tire builder heavy service yesterday. Patient on bicarb drip. She has high anion gap metabolic acidosis. Creatinine 3.46, 3.11, 2.91 gradually improving. 530 mL urine output charted yesterday. 275 mL so far. # MS and chronic pain -Patient on hospice due to her MS and chronic pain -Revoking hospice for admission -Patient will need to be reevaluated for hospice appropriateness prior to discharge from our institution -Case management consult # Chronic indwelling Valenzuela -UA with some leuk esterase and white blood cells but nitrite negative and no bacteria seen -Valenzuela changed in ED -CT of the abdomen did show bilateral kidney stones with internal ureteral stents bilaterally, small stones outside lumen of the stent on left and right and some probable peristent calcifications -Discussed with son, they would only like things directly associated with the pain or mental status to be addressed at this time #Type 2 diabetes mellitus -Glucose checks and sliding scale insulin -Awaiting med rec update #Hypothyroidism -Continue Synthroid if still applicable #GERD -Continue PPI if applicable #Depression/anxiety -Awaiting med rec update for final reconciliation #DVT ppx: Heparin subcu Charges/Coding Visit Charges Inpatient E&M: 71783 Subs Hosp L3
[2024-01-09] MEDS: Norepinephrine 8 MG in 0.9% Normal Saline (250mL Bag) 242 ML 18.8 MG CONT INF (09:08)
--- NOTE | 2024-01-09 09:10 | RAD_ITS ---
EXAM: XR CHEST, 1 VIEW CLINICAL INDICATION: central line placement TECHNIQUE: Frontal view of the chest. COMPARISON: 01/09/2024 FINDINGS: LUNGS AND PLEURAL SPACES: No significant abnormality. No consolidation or edema. No pneumothorax. No effusion. HEART: No significant abnormality. Cardiac silhouette not enlarged. MEDIASTINUM: Central airways and mediastinal contour are unremarkable. BONES/JOINTS: No significant abnormality. No acute fracture. SOFT TISSUES: No significant abnormality. TUBES, LINES AND DEVICES: The endotracheal tube is low, 1.8 cm above the megan. Left IJ venous catheter with tip overlying the confluence of the SVC and brachiocephalic vein. The enteric tube terminates below the level of the GE junction. UPPER ABDOMEN: Moderate to large amount of bowel gas partially visualized. RAD/Chest 1 View (Portable) IMPRESSION: 1. The endotracheal tube is low, 1.8 cm above the megan. 2. Left IJ venous catheter with tip overlying the confluence of the SVC and brachiocephalic vein. 3. The enteric tube terminates below the level of the GE junction. Electronically Signed: Jaguar Schilling DO at 10:12 EST ,
[2024-01-09 09:26] LABS: Allen Test Positive; Base Excess -20 mmol/L (-2 to +2); Blood Gas Specimen Type ART; Mode AC; O2 Delivery Device Adult Vent; PEEP 5; PO2 97 mmHG (75-100); RR 12; SITE L Radial; SO2 96 % (95-99); Total Carbon Dioxide 10 mmol/L; pCO2 24.8 mmHg (35-45); pH 7.17 (7.35-7.45)
[2024-01-09 09:50] LABS: Bedside Glucose 139 mg/dL (74-106)
[2024-01-09] MEDS: Vancomycin HCl 1,250 MG in 0.9% Normal Saline (250mL Bag) 250 ML 167 MG IV (09:56)
[2024-01-09] MEDS: dexMEDEtomidine 400 MCG in 0.9% Normal Saline (100mL Bag) 96 ML 29.4 MCG CONT INF (09:59)
[2024-01-09] MEDS: Pantoprazole Sodium 80 MG in 0.9% Normal Saline (50mL Bag) 15 ML 420 MG IV BOLUS (10:33)
[2024-01-09] MEDS: Pantoprazole Sodium 80 MG in 0.9% Normal Saline (100mL Bag) 80 ML 10 MG CONT INF ×2 (10:44→20:25)
[2024-01-09] MEDS: CHLORHEXIDINE GLUC 2% CLOTH 1 EACH TOWELETTE TOPICAL (10:45)
[2024-01-09] MEDS: Cefepime HCl 2 GM in 0.9% Normal Saline (100mL MB+) 100 ML IV (11:51)
[2024-01-09] MEDS: Insulin Lispro 100 UNIT/ML INSULN.PEN SC ×2 (12:46→16:57)
[2024-01-09 13:02] LABS: Bedside Glucose 190 mg/dL (74-106)
[2024-01-09] MEDS: Dexmedetomidine 1,000 mcg in 0.9% NS 240 mL 27.5 MCG CONT INF (13:30)
--- NOTE | 2024-01-09 14:24 | PN.CC_ITS ---
Objective Data Objective Data Vital Signs: Vital Signs Last response 3 Temperature 35.9 C L 01/09/24 12:35 Temperature Source Temporal 01/09/24 12:35 Pulse Rate 58 L 01/09/24 12:35 Pulse Strength Normal (2+) 01/09/24 10:00 Respiratory Rate 12 01/09/24 12:35 Respiratory Effort Mechanically Ventilated 01/09/24 12:00 Respiratory Depth Normal 01/09/24 12:00 Respiratory Pattern Normal 01/09/24 12:00 Blood Pressure 110/56 L 01/09/24 12:35 Blood Pressure Mean 74 01/09/24 12:35 Blood Pressure Source Monitor 01/09/24 11:00 Blood Pressure Position Semi-Fowlers 01/09/24 11:00 Blood Pressure Location Right Arm 01/09/24 11:00 Pulse Ox 96 01/09/24 12:35 Oxygen Delivery Method Mechanical Ventilator 01/09/24 12:35 Fraction of Inspired Oxygen (FIO2) 21 01/09/24 12:35 I&O: I&O Last 24 Hours 3 01/08/24 01/09/24 01/09/24 23:59 11:59 23:59 Intake Total 1250.56 / 2658.59 1095.30 / 1284.23 188.93 / 1284.23 Output Total 240 / 580 275 / 275 Balance 1010.56 / 2078.59 820.30 / 1009.23 188.93 / 1009.23 I&O: Total Stay 3 01/07/24 13:04 thru 01/09/24 13:33 Intake Total 6311.24 Output Total 805 Balance 5506.24 Current Meds Ordered / Administered: Current meds ordered / Administered 3 Generic Name Dose Route Start Last Admin Trade Name Freq PRN Reason Stop Dose Admin Acetaminophen 1,000 mg 01/07/24 22:00 01/09/24 07:00 Acetaminophen 500 Mg Tablet PO Not Given Q8 NOEL Albuterol Sulfate 2.5 mg 01/07/24 20:26 Albuterol 2.5 Mg/3 Ml Vial.Neb. INHALATION Q2H PRN PRN SOB &/OR WHEEZING Chlorhexidine Gluconate 1 each 01/08/24 10:00 01/09/24 10:45 Chlorhexidine Gluc 2% Cloth 1 Each [place]elette TOPICAL 1 each DAILY NOEL Administration Fentanyl Citrate 50 mcg 01/07/24 20:26 01/09/24 02:20 Fentanyl 100 Mcg/2 Ml Ampul IV 50 mcg Q2H PRN PRN Administration pain 7-10 Glucagon 1 mg 01/07/24 20:26 Glucagon 1 Mg/Ml Syringe IM X1 PRN Hypoglycemia Protocol Heparin Sodium (Porcine) 5,000 unit 01/07/24 22:00 01/09/24 06:59 Heparin Injection (Vial) 5,000 Unit/Ml Vial SC Not Given Q8 NOEL Cefepime HCl 2 gm/ Sodium 100 mls @ 200 mls/hr 01/08/24 10:00 01/09/24 12:39 Chloride IV Infused Q24 NOEL Infusion Dextrose 250 mls @ 0 mls/hr 01/07/24 20:26 Dextrose 10%-Water IV .Q0M PRN HYPOGLYCEMIA Protocol As Directed Vancomycin IV-PHARMACY TO DOSE 500 mls @ 250 mls/hr 01/07/24 20:26 1 each/ Sodium Chloride IV PRN PRN Rx to Dose Protocol Sodium Chloride 500 mls @ 15 mls/hr 01/07/24 20:54 IV .[id number] PRN Saline Flush Sodium Chloride 500 mls @ 15 mls/hr 01/07/24 20:54 IV .[id number] PRN Additional IVPB Infusion Norepinephrine Bitartrate 8 mg 250 mls @ 9.375 mls/hr 01/08/24 04:10 01/09/24 12:00 / Sodium Chloride CONT INF 10 mcg/min .[id number] NOEL 18.8 mls/hr Titration Protocol 5 MCG/MIN Pantoprazole Sodium 80 mg/ 100 mls @ 10 mls/hr 01/09/24 09:40 01/09/24 11:00 Sodium Chloride CONT INF 10 mls/hr Q10H NOEL Infusion Sodium Bicarbonate 150 meq/ 1,150 mls @ 150 mls/hr 01/09/24 11:00 Dextrose IV 01/09/24 17:20 .[id number] NOEL Dexmedetomidine HCl 1,000 mcg/ 250 mls @ 9.813 mls/hr 01/09/24 12:45 01/09/24 13:30 Sodium Chloride CONT INF 1.4 mcg/kg/hr .[id number] NOEL 27.5 mls/hr Administration Protocol 0.5 MCG/KG/HR Insulin Human Lispro 0 unit 01/08/24 07:00 01/09/24 12:46 Insulin Lispro 100 Unit/Ml Insuln.Pen SC 1 u TIDAC [facility] Administration Protocol Melatonin 3 mg 01/07/24 20:26 Melatonin 3 Mg Tablet PO QHS PRN PRN INSOMNIA Ondansetron HCl 4 mg 01/07/24 20:26 01/09/24 07:01 Ondansetron 4 Mg/2 Ml Vial IV 4 mg Q8H PRN PRN Administration NAUSEA/VOMITING Oxycodone HCl 5 mg 01/07/24 20:26 Oxycodone 5 Mg Tablet PO Q4H PRN PRN Pain Score 4-10 Senna/Docusate Sodium 2 tablet 01/07/24 20:26 Senna/Docusate Sodium 1 Tablet PO BID PRN PRN Constipation Sodium Chloride 10 - 40 ml 01/07/24 20:54 01/08/24 18:46 0.9% Saline Lock 10 Ml Syringe IV 10 ml UD PRN Administration SALINE FLUSH Vancomycin Protocol 1 lab 01/10/24 04:00 Vancomycin Trough/Random Due [facility] 01/10/24 08:00 DAILY [facility] Lab / Micro Data Attestation: I reviewed the patient's lab results. 01/09/24 05:30 01/09/24 05:30 Labs: Laboratory Results - last 24 hr 01/08/24 16:46: POC Glucose 117 H 01/09/24 05:30: WBC 13.4 H, RBC 3.18 L, Hgb 9.4 L, Hct 30.7 L, MCV 96.5, MCH 29.6, MCHC 30.6 L, RDW Std Deviation 51.5 H, RDW Coeff of Mele 14.6, Plt Count 440, MPV 9.1, Immature Gran % (Auto) 1.700 H, Neut % (Auto) 81.7 H, Lymph % (Auto) 6.1 L, [place] % (Auto) 6.4, Eos % (Auto) 3.4, Baso % (Auto) 0.7, Absolute Neuts (auto) 10.9 H, Absolute Lymphs (auto) 0.81 L, Nucleated RBC % 0, Sodium 137 01/09/24 05:30: Sodium 135 L, Potassium 3.6 01/09/24 05:30: Potassium 3.5, Chloride 110 H 01/09/24 05:30: Chloride 109 H, Carbon Dioxide 12.0 L 01/09/24 05:30: Carbon Dioxide 11.0 L, Anion Gap 15, BUN 84 H 01/09/24 05:30: BUN 87 H, Creatinine 2.98 H 01/09/24 05:30: Creatinine 2.91 H, Estim Creat Clear Calc 18.37 01/09/24 05:30: Estim Creat Clear Calc 18.81, Est GFR (MDRD) Af Amer 21 L 01/09/24 05:30: Est GFR (MDRD) Af Amer 21 L, Est GFR (MDRD) Non-Af 17 L 01/09/24 05:30: Est GFR (MDRD) Non-Af 17 L, BUN/Creatinine Ratio 28.2 H 01/09/24 05:30: BUN/Creatinine Ratio 29.9 H, Glucose 157 H 01/09/24 05:30: Glucose 160 H, Calcium 8.0 L 01/09/24 05:30: Calcium 8.2 L, Phosphorus 3.5, Total Bilirubin 0.50, AST 7 L, A LT < 6 L, Alkaline Phosphatase 87, Total Protein 6.3 L, Albumin 2.2 L 01/09/24 05:30: Albumin 2.2 L, Globulin 4.1, Albumin/Globulin Ratio 0.5 L, Random Vancomycin 12.0 01/09/24 09:14: POC Glucose 139 H 01/09/24 12:44: POC Glucose 190 H Micro: Microbiology 01/07/24 14:35 Blood Culture (Wb) - Right Forearm Blood Culture - Preliminary No growth in 48 hours. 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 alfie Gram negative alfie#2 ABG Data ABG results: ABG 01/09/24 01/09/24 01/09/24 05:40 06:29 09:21 Specimen Type NANO ART ART Sample Site Not entered R Radial L Radial pH 7.20 L 7.17 L* Bicarbonate Actual 9.6 L 9.0 L Total CO2 10 10 Base Excess -19 L -20 L O2 Saturation 97 96 O2 % 21.0 21.0 ABG pCO2 24.6 L 24.8 L ABG pO2 103 H 97 Barak Test Positive Positive VBG pH 7.12 L* VBG pO2 77 H VBG HCO3 10 L VBG Total CO2 11 L VBG O2 Sat (Calc) 90 H VBG Base Excess -19 L POC Mix VBG pCO2 Pt Tmp 31.9 L Respiration Rate 12 O2 Delivery Device Not entered Room Air Adult Vent Vent Mode Not entered AC Tidal Volume 400.0 POC PEEP 5 Crit Call To/Read Back Yes Yes Yes Blood Gas Notified Whom [place] Blood Gas Notified Time 06:30:47 09:22:57 Imaging Radiology Impression Chest X-Ray 01/09/24 04:25 IMPRESSION: No radiographic evidence of acute cardiopulmonary disease. Electronically Signed: Mohamud Hendrix MD at 6:55 EST , Chest X-Ray 01/09/24 07:10 IMPRESSION: Endotracheal tube with tip 1.8 cm above the megan. Electronically Signed: Mohamud Hendrix MD at 7:52 EST , Chest X-Ray 01/09/24 09:10 IMPRESSION: 1. The endotracheal tube is low, 1.8 cm above the megan. 2. Left IJ venous catheter with tip overlying the confluence of the SVC and brachiocephalic vein. 3. The enteric tube terminates below the level of the GE junction. Electronically Signed: Jaguar Schilling DO at 10:12 EST , Assessment and Plan . Assessment and plan: Assessment and plan: 1. Septic shock 2. UTI 3. EDWINA 4. Encephalopathy 5. GERD 6. MS 7. Hypothyroidism 8. Depression 9. Anxiety -Continue Vanc and Cefepime. -F/U blood and urine cx -Start LR at 100 cc/hr. -Check BMP and CBC tomorrow AM. -APS to be contacted Critical Care Time: 50 minutes The entirety of this encounter was done via Telemedicine Physical Exam Const General Appearance: intubated and patient mechanically ventilated Orientation / Consciousness: obtunded HEENT normocephalic Eyes Pupil: PERRL Neck full ROM Resp normal respiratory effort Subjective Subjective Intubated this AM for progressive metabolic derangement/ acidosis, apparently.
[2024-01-09 17:18] LABS: Bedside Glucose 207 mg/dL (74-106)
--- NOTE | 2024-01-09 18:32 | PCM.PN.REN ---
Subjective Subjective Following for EDWINA and CKD. The patient was intubated this morning (01/09/2024). She is now on norepinephrine drip along with bicarbonate drip. Objective Data Objective Data Vital Signs: Vital Signs Temp Pulse Resp BP Pulse Ox O2 Del Method FiO2 96.9 F L 56 L 12 108/67 100 Mechanical Ventilator 21 01/09/24 16:00 01/09/24 18:00 01/09/24 18:00 01/09/24 18:00 01/09/24 18:00 01/09/24 18:00 01/09/24 18:00 Oxygen Delivery Method Mechanical Ventilator Weight: 78.5 kg Body Mass Index (BMI) 34.9 Intake & Output: Intake and Output for Last 24 Hours 01/07/24 01/08/24 01/09/24 23:59 23:59 23:59 Intake Total 2375 / 2525 2652.01 / 2658.59 2388.65 / 2388.65 Output Total 530 / 580 525 / 525 Balance 2375 / 2525 2122.01 / 2078.59 1863.65 / 1863.65 Lab / Micro Data 01/09/24 05:30 01/09/24 05:30 Labs: Laboratory Results - last 24 hr 01/08/24 16:46: POC Glucose 117 H 01/09/24 05:30: WBC 13.4 H, RBC 3.18 L, Hgb 9.4 L, Hct 30.7 L, MCV 96.5, MCH 29.6, MCHC 30.6 L, RDW Std Deviation 51.5 H, RDW Coeff of Mele 14.6, Plt Count 440, MPV 9.1, Immature Gran % (Auto) 1.700 H, Neut % (Auto) 81.7 H, Lymph % (Auto) 6.1 L, Tate % (Auto) 6.4, Eos % (Auto) 3.4, Baso % (Auto) 0.7, Absolute Neuts (auto) 10.9 H, Absolute Lymphs (auto) 0.81 L, Nucleated RBC % 0, Sodium 137 01/09/24 05:30: Sodium 135 L, Potassium 3.6 01/09/24 05:30: Potassium 3.5, Chloride 110 H 01/09/24 05:30: Chloride 109 H, Carbon Dioxide 12.0 L 01/09/24 05:30: Carbon Dioxide 11.0 L, Anion Gap 15, BUN 84 H 01/09/24 05:30: BUN 87 H, Creatinine 2.98 H 01/09/24 05:30: Creatinine 2.91 H, Estim Creat Clear Calc 18.37 01/09/24 05:30: Estim Creat Clear Calc 18.81, Est GFR (MDRD) Af Amer 21 L 01/09/24 05:30: Est GFR (MDRD) Af Amer 21 L, Est GFR (MDRD) Non-Af 17 L 01/09/24 05:30: Est GFR (MDRD) Non-Af 17 L, BUN/Creatinine Ratio 28.2 H 01/09/24 05:30: BUN/Creatinine Ratio 29.9 H, Glucose 157 H 01/09/24 05:30: Glucose 160 H, Calcium 8.0 L 01/09/24 05:30: Calcium 8.2 L, Phosphorus 3.5, Total Bilirubin 0.50, AST 7 L, ALT < 6 L, Alkaline Phosphatase 87, Total Protein 6.3 L, Albumin 2.2 L 01/09/24 05:30: Albumin 2.2 L, Globulin 4.1, Albumin/Globulin Ratio 0.5 L, Random Vancomycin 12.0 01/09/24 09:14: POC Glucose 139 H 01/09/24 12:44: POC Glucose 190 H 01/09/24 16:56: POC Glucose 207 H Micro: Microbiology 01/09/24 07:07 Sputum, Induced/Lukens Gram Stain - Final 01/07/24 14:35 Blood Culture (Wb) - Right Forearm Blood Culture - Preliminary No growth in 48 hours. 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 Gram negative alfie Gram negative alfie#2 ABG Data ABG results: ABG 01/09/24 01/09/24 01/09/24 05:40 06:29 09:21 Specimen Type NANO ART ART Sample Site Not entered R Radial L Radial pH 7.20 L 7.17 L* Bicarbonate Actual 9.6 L 9.0 L Total CO2 10 10 Base Excess -19 L -20 L O2 Saturation 97 96 O2 % 21.0 21.0 ABG pCO2 24.6 L 24.8 L ABG pO2 103 H 97 Barak Test Positive Positive VBG pH 7.12 L* VBG pO2 77 H VBG HCO3 10 L VBG Total CO2 11 L VBG O2 Sat (Calc) 90 H VBG Base Excess -19 L POC Mix VBG pCO2 Pt Tmp 31.9 L Respiration Rate 12 O2 Delivery Device Not entered Room Air Adult Vent Vent Mode Not entered AC Tidal Volume 400.0 POC PEEP 5 Crit Call To/Read Back Yes Yes Yes Blood Gas Notified Whom BRISCOE Blood Gas Notified Time 06:30:47 09:22:57 Radiography Diagnostic Testing: Radiology Impression Chest X-Ray 01/09/24 04:25 IMPRESSION: No radiographic evidence of acute cardiopulmonary disease. Electronically Signed: Mohamud Hendrix MD at 6:55 EST , Chest X-Ray 01/09/24 07:10 IMPRESSION: Endotracheal tube with tip 1.8 cm above the megan. Electronically Signed: Mohamud Hendrix MD at 7:52 EST , Chest X-Ray 01/09/24 09:10 IMPRESSION: 1. The endotracheal tube is low, 1.8 cm above the megan. 2. Left IJ venous catheter with tip overlying the confluence of the SVC and brachiocephalic vein. 3. The enteric tube terminates below the level of the GE junction. Electronically Signed: Jaguar Schilling DO at 10:12 EST , Physical Exam Narrative General: Ill-appearing, sedated on ventilator. HEENT: Normocephalic, atraumatic. Intubated. Neck: Supple, no JVD. Heart: Normal S1, S2. No rubs, murmurs or gallops. Lungs: Clear to auscultation anteriorly. Abdomen: Normal bowel sounds, soft, nontender, no guarding or rebound. Extremities: There is 2+ edema of the lower extremity bilaterally. No guarding or rebound. Neurologic: No focal neurologic deficit. Assessment & Plan Assessment/Plan (1) EDWINA (acute kidney injury): (2) Chronic kidney disease, stage 3a: (3) Acute metabolic acidosis: (4) Kidney stones: PLAN: Plan Impression/Plan: The patient is a 63-year-old female with past history of multiple sclerosis complicated by urinary retention requiring chronic Valenzuela catheter, hypothyroidism, GERD, generalized anxiety disorder, and major depressive disorder. The patient presented to hospital on 01/07/2024 with altered mental status. She was also found to be hypotensive with systolic blood pressure less than 100 mmHg. The patient is being treated for septic shock due to either UTI and/or infected decubitus ulcers. Nephrology is following for EDWINA on CKD. Acute kidney injury on chronic kidney disease stage G3a. Last available serum creatinine from August 2022 was 1.22 mg/dL. Thus far, serum creatinine has peaked at 3.46 mg/dL on 01/07/2024. Serum creatinine is better today at 2.91 mg/dL on 01/09/2024. EDWINA is likely due to ischemic ATN from septic shock. Patient also has bilateral pelviectasia of the kidneys on CT abdomen. There is mild left hydronephrosis. Therefore, patient may also possibly have partially obstructive EDWINA particularly if ureteral stents have not been functioning well. It is unclear on review of record when ureteral stents were placed. Patient continues to require IV vasopressor. Okay to continue following expansion as well as patient does not appear to be volume overloaded. Keep MAP above 65 mmHg. There is no urgent need for kidney replacement therapy, but patient is at high risk for progression of kidney dysfunction. Will continue to monitor renal function, volume status, acid-base and electrolytes. Acute metabolic acidosis. Bicarbonate level is 11 mmol/L today. pH is 7.17 today on VBG. Therefore, I agree with initiation of sodium bicarbonate infusion. Will continue to monitor serum bicarbonate. Watch potassium level on bicarbonate drip. Nephrolithiasis. Patient has bilateral staghorn calcification/nephrolithiasis. She also has bilateral ureteral stents. There is bilateral pelviectasia of both kidneys with mild left hydronephrosis. Given septic shock, it may be prudent to consider removing or exchanging ureteral stents. Patient would benefit from urology consultation. Septic shock secondary to complicated UTI versus soft tissue infection. Patient is requiring IV vasopressor support. Antimicrobial coverage as per primary services. As discussed above, patient may benefit from urology opinion regarding need to remove or changing ureteral stent given ongoing sepsis.
[2024-01-09] MEDS: Chlorhexidine 15 ML PO (22:39)
[2024-01-09] MEDS: Menthol/Lanolin/Calamine/Znox 113 GM Tube 1 APPLIC TOPICAL (22:40)
[2024-01-10] VITALS (28 sets, daily range): BP systolic 86–134; BP diastolic 53–96; PULSE 52–126; RESP 12–26; TEMP 35.8–36.3; O2SAT 97–100; BMI 35.5
[2024-01-10] MEDS: Dexmedetomidine 1,000 mcg in 0.9% NS 240 mL 23.6 MCG CONT INF
[2024-01-10] MEDS: Norepinephrine 8 MG in 0.9% Normal Saline (250mL Bag) 242 ML 9.4 MG CONT INF (02:18)
[2024-01-10] MEDS: fentaNYL 100 MCG/2 ML Ampul 50 MCG IV ×2 (03:23→08:04)
--- NOTE | 2024-01-10 04:56 | EKG12_ITS ---
Test Reason : am ekg Blood Pressure : */* mmHG Vent. Rate : 55 BPM Atrial Rate : 55 BPM P-R Int : 172 ms QRS Dur : 86 ms QT Int : 596 ms P-R-T Axes : 33 27 27 degrees QTcB Int : 570 ms Critical Test Result: Long QTc Sinus bradycardia Low voltage QRS Septal infarct , age undetermined Possible Lateral infarct , age undetermined Prolonged QT Abnormal ECG When compared with ECG of 07-Jan-2024 13:22, MANUAL COMPARISON REQUIRED DATA IS UNCONFIRMED Confirmed by NEREIDA MARTINES, LLUVIA ([id number]), supervising editor news reel ALMAZ [id number] ([id number]) on 01/10/2024 12:40:06 PM Referred By: Harjinder Confirmed By: LLUVIA PADRON MD
[2024-01-10] MEDS: Vancomycin Trough/Random Due 1 LAB MC (05:10)
--- NOTE | 2024-01-10 05:50 | PHA.PHARE_ITS ---
Consult Antibiotic Management Pharmacy has been consulted to manage selected antibiotic: Vancomycin Type of Intervention Type of Consult: Follow-up Suspected Infection Suspected Infection: Sepsis Labs Labs: Random Vancomycin 24.0 ug/mL (0.0-15.0) H 01/10/24 05:00 Microbiology Microbiology: Microbiology 01/09/24 07:07 Sputum, Induced/Lukens Gram Stain - Final 01/07/24 14:35 Blood Culture (Wb) - Right Forearm Blood Culture - Preliminary No growth in 48 hours. 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 Will hold off dosing again today, and will draw another random level a.m. 01/11/24. Pharmacy Service will continue to monitor and adjust dosing as required. Follow-Up Labs Follow-Up Labs: Trough: Vancomycin (random) Date/Time Labs Ordered Labs to be done on [date and time ordered]: 01/11/24 @0600 (random)
[2024-01-10] MEDS: Pantoprazole Sodium 80 MG in 0.9% Normal Saline (100mL Bag) 80 ML 10 MG CONT INF (06:26)
[2024-01-10 06:30] LABS: ALB/GLOB Ratio 0.5 RATIO (0.9-2.4); AST(SGOT) 5 U/L (15-37); Alanine Aminotransfer ALT/SGPT < 6 U/L (13-56); Albumin, Serum 1.7 g/dL (3.2-5.0); Alkaline Phosphatase 78 U/L (45-117); Anion Gap 11 (5-15); BUN 75 mg/dL (7-18); BUN/Creat Ratio 27.6 RATIO (10-20); Calcium,Total 7.5 mg/dL (8.5-10.1); Chloride 109 mmol/L (98-107); Creatinine, Serum 2.72 mg/dL (0.55-1.02); EST Glomerular Filtration Rate 19 mL/min (>60); Est Glom Filt Rate - Afr Amer 23 mL/min (>60); Estimated Creatinine Clearance 20.31 ml/min; Globulin 3.7 g/dL (2.2-4.2); Glucose 193 mg/dL (74-106); Potassium 2.8 mmol/L (3.5-5.1); Protein, Total 5.4 g/dL (6.4-8.2); Sodium Level 137 mmol/L (136-145)
[2024-01-10] MEDS: Menthol/Lanolin/Calamine/Znox 113 GM Tube 1 APPLIC TOPICAL ×3 (06:33→21:01)
[2024-01-10 06:44] LABS: Absolute Lymphocyte Count 0.51 X10^3/uL (0.83-4.51); Absolute Neutrophil Count 12.6 X10^3/uL (2.0-7.7); Basophil# 0.07 X10^3/uL; Basophil% 0.5 % (0-1); Eosinophil# 0.34 X10^3/uL; Eosinophils% 2.3 % (0-5); Hematocrit 28.3 % (37-47); Hemoglobin 9.6 g/dL (12.0-15.0); Lymphocyte # 0.51 X10^3/ul (0.83-4.51); Lymphocyte % 3.5 % (19-41); Mean Corp Hgb Conc 33.9 g/dL (32-36); Mean Corpuscular Hgb 30.5 pg (27.0-32.0); Mean Corpuscular Volume 89.8 fL (81-99); Mean Platelet Vol. 9.5 fl (6.2-12.0); Monocyte# 0.91 X10^3/uL; Monocyte% 6.2 % (0-10); NRBC Flagged by Analyzer 0 % (0-5); Neutrophil # 12.59 X10^3/uL (2.7-7.7); Neutrophil % 86.4 % (47-70); POSITIVE DIFFERENTIAL YES; Platelet Count 386 K/mm3 (150-450); RBC Distribution Width CV 14.3 % (11.6-14.6); RBC Distribution Width SD 46.4 fl (35.1-43.9); Red Blood Count 3.15 M/mm3 (4.2-5.4); White Blood Count 14.6 K/mm3 (4.4-11.0)
[2024-01-10] MEDS: Insulin Lispro 100 UNIT/ML INSULN.PEN SC ×2 (07:51→17:39)
[2024-01-10] MEDS: CHLORHEXIDINE GLUC 2% CLOTH 1 EACH TOWELETTE TOPICAL (07:51)
[2024-01-10] MEDS: Potassium Chloride 20mEq/100mL 20 MEQ/100 ML IV.SOLN. 100 MEQ IV BOLUS ×3 (07:52→10:27)
[2024-01-10] MEDS: Chlorhexidine 15 ML PO ×2 (08:05→21:03)
--- NOTE | 2024-01-10 08:56 | PCM.PN.REN ---
Subjective Subjective Following for EDWINA on CKD. Patient was intubated on 01/09/2024. She remains on ventilator today. Patient also remains on norepinephrine infusion at 5 mcg/min. She is also on sodium bicarbonate infusion. Objective Data Objective Data Vital Signs: Vital Signs Temp Pulse Resp BP Pulse Ox O2 Del Method FiO2 97.0 F L 54 L 12 103/62 99 Mechanical Ventilator 21 01/10/24 08:00 01/10/24 08:00 01/10/24 08:00 01/10/24 08:00 01/10/24 08:00 01/10/24 08:00 01/10/24 08:00 Oxygen Delivery Method Mechanical Ventilator Weight: 79.8 kg Body Mass Index (BMI) 35.5 Intake & Output: Intake and Output for Last 24 Hours 01/08/24 01/09/24 01/10/24 23:59 23:59 23:59 Intake Total 2652.01 / 2658.59 2583.65 / 2646.65 1556.84 / 1556.84 Output Total 530 / 580 625 / 800 425 / 425 Balance 2122.01 / 2078.59 1958.65 / 1846.65 1131.84 / 1131.84 Lab / Micro Data 01/10/24 05:40 01/10/24 13:35 Labs: Laboratory Results - last 24 hr 01/09/24 09:14: POC Glucose 139 H 01/09/24 12:44: POC Glucose 190 H 01/09/24 16:56: POC Glucose 207 H 01/10/24 05:00: WBC Cancelled, Corrected WBC Cancelled, RBC Cancelled, Hgb Cancelled, Hct Cancelled, MCV Cancelled, MCH Cancelled, MCHC Cancelled, RDW Std Deviation Cancelled, RDW Coeff of Mele Cancelled, Plt Count Cancelled, MPV Cancelled, Immature Gran % (Auto) Cancelled, Neut % (Auto) Cancelled, Lymph % (Auto) Cancelled, Powell % (Auto) Cancelled, Eos % (Auto) Cancelled, Baso % (Auto) Cancelled, Absolute Neuts (auto) Cancelled, Absolute Lymphs (auto) Cancelled, Total Counted Cancelled, Neutrophils % (Manual) Cancelled, Band Neutrophils % Cancelled, Lymphocytes % (Manual) Cancelled, Monocytes % (Manual) Cancelled, Eosinophils % (Manual) Cancelled, Basophils % (Manual) Cancelled, Metamyelocytes % Cancelled, Myelocytes % Cancelled, Promyelocytes % Cancelled, Blast Cells % Cancelled, Plasma Cell % (Manual) Cancelled, Other Cells % Cancelled, Nucleated RBC % Cancelled, Nucleated RBCs/100 WBC Cancelled, Differential Comment Cancelled, Diff Path Review Cancelled, Hypersegmented Neuts Cancelled, Atypical Lymphocytes Cancelled, Reactive Lymphocytes Cancelled, Smudge Cells Cancelled, Toxic Granulation Cancelled, Toxic Vacuolation Cancelled, Dohle Bodies Cancelled, Noemí Rods Cancelled, Platelet Estimate Cancelled, Plt Morphology Comment Cancelled, RBC Morphology Cancelled 01/10/24 05:00: RBC Morphology Cancelled, Polychromasia Cancelled, Hypochromasia Cancelled, Basophilic Stippling Cancelled, Anisocytosis Cancelled, Microcytosis Cancelled, Macrocytosis Cancelled, Spherocytes Cancelled, Sickle Cells Cancelled, Target Cells Cancelled, Tear Drop Cells Cancelled, Ovalocytes Cancelled, Stomatocytes Cancelled, Brown-[place] Bodies Cancelled, [place] Cells Cancelled, Bite Cells Cancelled, Crenated Cell Cancelled, Acanthocytes (Spur) Cancelled, Rouleaux Cancelled, Schistocytes Cancelled, Sodium Cancelled, Potassium Cancelled, Chloride Cancelled, Carbon Dioxide Cancelled, Anion Gap Cancelled, BUN Cancelled, Creatinine Cancelled, Estim Creat Clear Calc Cancelled, Est GFR (MDRD) Af Amer Cancelled, Est GFR (MDRD) Non-Af Cancelled, BUN/Creatinine Ratio Cancelled, Glucose Cancelled, Calcium Cancelled, Total Bilirubin Cancelled, AST Cancelled, ALT Cancelled, Alkaline Phosphatase Cancelled, Total Protein Cancelled, Albumin Cancelled, Globulin Cancelled, Albumin/Globulin Ratio Cancelled, Random Vancomycin Cancelled 01/10/24 05:40: WBC 14.6 H, RBC 3.15 L, Hgb 9.6 L, Hct 28.3 L, MCV 89.8 D, MCH 30.5, MCHC 33.9 D, RDW Std Deviation 46.4 H, RDW Coeff of Mele 14.3, Plt Count 386, MPV 9.5, Immature Gran % (Auto) 1.100 H, Neut % (Auto) 86.4 H, Lymph % (Auto) 3.5 L, Powell % (Auto) 6.2, Eos % (Auto) 2.3, Baso % (Auto) 0.5, Absolute Neuts (auto) 12.6 H, Absolute Lymphs (auto) 0.51 L, Nucleated RBC % 0, Sodium 137, Potassium 2.8 L, Chloride 109 H, Carbon Dioxide 18.0 L, Anion Gap 11, BUN 75 H, Creatinine 2.72 H, Estim Creat Clear Calc 20.31, Est GFR (MDRD) Af Amer 23 L, Est GFR (MDRD) Non-Af 19 L, BUN/Creatinine Ratio 27.6 H, Glucose 193 H, Calcium 7.5 L, Total Bilirubin 0.30, AST 5 L, ALT < 6 L, Alkaline Phosphatase 78, Total Protein 5.4 L, Albumin 1.7 L, Globulin 3.7, Albumin/Globulin Ratio 0.5 L, Random Vancomycin 24.0 H Micro: Microbiology 01/09/24 07:07 Sputum, Induced/Lukens Gram Stain - Final 01/07/24 14:35 Blood Culture (Wb) - Right Forearm Blood Culture - Preliminary No growth in 48 hours. 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 The endotracheal tube is low, 1.8 cm above the megan. 2. Left IJ venous catheter with tip overlying the confluence of the SVC and brachiocephalic vein. 3. The enteric tube terminates below the level of the GE junction. Electronically Signed: Jaguar Schilling DO at 10:12 EST , Physical Exam Narrative General: Ill-appearing, sedated on ventilator. HEENT: Normocephalic, atraumatic. Intubated. Neck: Supple, no JVD. Heart: Normal S1, S2. No rubs, murmurs or gallops. Lungs: Clear to auscultation anteriorly. Abdomen: Normal bowel sounds, soft, nontender, no guarding or rebound. Extremities: There is 2+ edema of the lower extremity bilaterally. No guarding or rebound. Neurologic: No focal neurologic deficit. Assessment & Plan Assessment/Plan (1) EDWINA (acute kidney injury): (2) Chronic kidney disease, stage 3a: (3) Acute metabolic acidosis: (4) Kidney stones: PLAN: Plan Impression/Plan: The patient is a 63-year-old female with past history of multiple sclerosis complicated by urinary retention requiring chronic Valenzuela catheter, hypothyroidism, GERD, generalized anxiety disorder, and major depressive disorder. The patient presented to hospital on 01/07/2024 with altered mental status. She was also found to be hypotensive with systolic blood pressure less than 100 mmHg. The patient is being treated for septic shock due to either UTI and/or infected decubitus ulcers. Nephrology is following for EDWINA on CKD. Acute kidney injury on chronic kidney disease stage G3a. Last available serum creatinine from August 2022 was 1.22 mg/dL. Thus far, serum creatinine has peaked at 3.46 mg/dL on 01/07/2024. Serum creatinine is better today at 2.72 mg/dL on 01/10/2024. Urine output seems to be picking up. EDWINA is likely due to ischemic ATN from septic shock. Patient also has bilateral pelviectasia of the kidneys on CT abdomen. There is mild left hydronephrosis. Therefore, patient may also possibly have partially obstructive EDWINA particularly if ureteral stents have not been functioning well. It is unclear on review of record when ureteral stents were placed. Patient continues to require IV vasopressor although requirement has not increased significantly in the last 24 hours. Okay to continue following expansion as well as patient does not appear to be volume overloaded. Keep MAP above 65 mmHg. There is no urgent need for kidney replacement therapy, but patient is at risk for progression of kidney dysfunction. Will continue to monitor renal function, volume status, acid-base and electrolytes. Acute metabolic acidosis. Bicarbonate level was 11 mmol/L on 01/09/2024. pH was 7.17 on 01/09/2024 on VBG. Therefore, I agree with initiation of sodium bicarbonate infusion. Patient is still on sodium bicarb infusion. Would stop sodium bicarb infusion once serum bicarbonate level is 28 mmol/L or higher consistently. Nephrolithiasis. Patient has bilateral staghorn calcification/nephrolithiasis. She also has bilateral ureteral stents. There is bilateral pelviectasia of both kidneys with mild left hydronephrosis. Given septic shock, it may be prudent to consider removing or exchanging ureteral stents. Patient would benefit from urology consultation. Septic shock secondary to complicated UTI versus soft tissue infection. Patient is requiring IV vasopressor support. Antimicrobial coverage as per primary services. As discussed above, patient may benefit from urology opinion regarding need to remove or changing ureteral stent given ongoing sepsis.
--- NOTE | 2024-01-10 10:29 | CASEMGMT ---
Direction Home Small Package And Bundle Sorter Clerk @ [phone] updated on the pt status and plan of Care.
--- NOTE | 2024-01-10 10:32 | CASEMGMT ---
Addendum entered by Adriana Callaway 01/10/24 11:31: SW is familiar with patient from past admissions. Most visits in the past SNF has been recommended and patient has refused. Patient states she can get the same care at home. Also, on most visits there have been concerns with patient's care at home. [facility] has also had concerns with patient's care at home. Adult Protective Services has been called in the past. APS has never opened a case after they visit with patient as patient is alert and oriented and prefers to stay at home. Patient's current condition sounds comparable to prior visits. In the past patient has told SW she knows her care isn't the best, but she prefers to be at home with family. SW does have a phone call out to [facility]. SW will continue to follow and talk with appropriate people to ensure most appropriate d/c plan that is in line with what patient wants or if patient unable to decide patient's HCPOA is made. SW will also make appropriate referrals at discharge. Adriana BURRIS Original Note: JANELL called [facility] and asked that the nurse that normally sees patient give SW a phone call. Adriana BURRIS
--- NOTE | 2024-01-10 10:32 | PCM.PN.INT ---
Assessment & Plan Assessment/Plan (1) Septic shock: PLAN: Plan RECOMMENDATIONS: 1. Continue antimicrobials per ID recommendations. 2. Continue sodium bicarbonate infusion per nephrology. 3. Continue vasopressor support to maintain mean arterial pressure at or above 65 mmHg. 4. Consider urology consultation for stent management. 5. Proceed with awakening and breathing trial today. 6. Obtain follow-up arterial blood gas. 7. Continue appropriate DVT and GI prophylaxis. IMPRESSIONS: 1. Septic shock Clinical concern for underlying complicated UTI. The patient appears to be improving clinically with antimicrobials and vasopressor support. Infectious diseases consultation is currently pending. Continue Levophed to maintain a mean arterial pressure at or above 65 mmHg. Ultimately, the patient will likely require urology evaluation to assist with underlying ureteral stent management. 2. Acute kidney injury Suspected ATN in the setting of septic shock. Continue sodium bicarbonate infusion for now. Nephrology is following to assist with medical management. 3. Acute respiratory failure The patient was intubated as a consequence of her presenting encephalopathy. Mentation, overall, appears to be slowly improving with supportive care. She will be continued on assist-control mode of mechanical ventilation. Tentatively, we will plan to perform a spontaneous awakening and breathing trial this morning. In addition, we will obtain follow-up ABG. I would like to ensure that her underlying metabolic derangements are improved prior to consideration for extubation. 4. Encephalopathy Likely multifactorial in etiology with underlying metabolic derangements along with baseline MS contributing. Continue supportive measures as noted above. Plan to obtain follow-up ABG this morning. 5. Anemia/diabetes mellitus/GERD/hypothyroidism/depression/anxiety/history of multiple sclerosis Complicates care, management, recovery and prognosis. Continue current supportive care. Transfuse if hemoglobin drops below 7 g/dL. Continue PPI therapy. The patient was previously noted to be active with home hospice care. The services were apparently revoked upon admission to the hospital. TIME: 37 minutes of critical care time, independent of procedures, was spent addressing the patient's septic shock, acute kidney injury, acute respiratory failure, encephalopathy, review of all data and collaboration with the care team. Subjective Subjective The patient was seen and examined at the bedside this morning. Events from the last 24 hours have been reviewed. The patient is currently afebrile. She remains hypotensive with a Levophed requirement of 5 mcg/min. The patient is sedated on Precedex. She is awaiting completion of a spontaneous breathing trial this morning. White count is elevated at 14,000 with a hemoglobin of 9.6 g/dL. Potassium is low at 2.8 with a bicarbonate of 18 and creatinine of 2.72. Objective Data Objective Data The patient's most recent lab work, culture data and imaging studies have all been personally reviewed. Buttock wound culture was positive for gram-negative alfie. Sputum culture is pending. Urine culture is positive for Citrobacter, Providencia and Serratia. Vital Signs: Vital Signs Temp Pulse Resp BP Pulse Ox O2 Del Method FiO2 97.0 F L 67 13 86/62 L 99 Mechanical Ventilator 01/10/24 08:00 01/10/24 10:00 01/10/24 10:00 01/10/24 10:00 01/10/24 10:00 01/10/24 10:00 01/10/24 10:00 Oxygen Delivery Method Mechanical Ventilator Weight: 175 lb 14.862 oz Body Mass Index (BMI) 35.5 Intake & Output: Intake and Output for Last 24 Hours 01/08/24 01/09/24 01/10/24 23:59 23:59 23:59 Intake Total 2652.01 / 2658.59 2583.65 / 2646.65 1807.11 / 1807.11 Output Total 530 / 580 625 / 800 425 / 425 Balance 2122.01 / 2078.59 1958.65 / 1846.65 1382.11 / 1382.11 Lab / Micro Data Attestation: I reviewed the patient's lab results. 01/10/24 05:40 01/10/24 05:40 Labs: Laboratory Results - last 24 hr 01/09/24 12:44: POC Glucose 190 H 01/09/24 16:56: POC Glucose 207 H 01/10/24 05:00: WBC Cancelled, Corrected WBC Cancelled, RBC Cancelled, Hgb Cancelled, Hct Cancelled, MCV Cancelled, MCH Cancelled, MCHC Cancelled, RDW Std Deviation Cancelled, RDW Coeff of Mele Cancelled, Plt Count Cancelled, MPV Cancelled, Immature Gran % (Auto) Cancelled, Neut % (Auto) Cancelled, Lymph % (Auto) Cancelled, [place] % (Auto) Cancelled, Eos % (Auto) Cancelled, Baso % (Auto) Cancelled, Absolute Neuts (auto) Cancelled, Absolute Lymphs (auto) Cancelled, Total Counted Cancelled, Neutrophils % (Manual) Cancelled, Band Neutrophils % Cancelled, Lymphocytes % (Manual) Cancelled, Monocytes % (Manual) Cancelled, Eosinophils % (Manual) Cancelled, Basophils % (Manual) Cancelled, Metamyelocytes % Cancelled, Myelocytes % Cancelled, Promyelocytes % Cancelled, Blast Cells % Cancelled, Plasma Cell % (Manual) Cancelled, Other Cells % Cancelled, Nucleated RBC % Cancelled, Nucleated RBCs/100 WBC Cancelled, Differential Comment Cancelled, Diff Path Review Cancelled, Hypersegmented Neuts Cancelled, Atypical Lymphocytes Cancelled, Reactive Lymphocytes Cancelled, Smudge Cells Cancelled, Toxic Granulation Cancelled, Toxic Vacuolation Cancelled, Dohle Bodies Cancelled, Noemí Rods Cancelled, Platelet Estimate Cancelled, Plt Morphology Comment Cancelled, RBC Morphology Cancelled 01/10/24 05:00: RBC Morphology Cancelled, Polychromasia Cancelled, Hypochromasia Cancelled, Basophilic Stippling Cancelled, Anisocytosis Cancelled, Microcytosis Cancelled, Macrocytosis Cancelled, Spherocytes Cancelled, Sickle Cells Cancelled, Target Cells Cancelled, Tear Drop Cells Cancelled, Ovalocytes Cancelled, Stomatocytes Cancelled, [place] Bodies Cancelled, Barber Cells Cancelled, Bite Cells Cancelled, Crenated Cell Cancelled, Acanthocytes (Spur) Cancelled, Rouleaux Cancelled, Schistocytes Cancelled, Sodium Cancelled, Potassium Cancelled, Chloride Cancelled, Carbon Dioxide Cancelled, Anion Gap Cancelled, BUN Cancelled, Creatinine Cancelled, Estim Creat Clear Calc Cancelled, Est GFR (MDRD) Af Amer Cancelled, Est GFR (MDRD) Non-Af Cancelled, BUN/Creatinine Ratio Cancelled, Glucose Cancelled, Calcium Cancelled, Total Bilirubin Cancelled, AST Cancelled, ALT Cancelled, Alkaline Phosphatase Cancelled, Total Protein Cancelled, Albumin Cancelled, Globulin Cancelled, Albumin/Globulin Ratio Cancelled, Random Vancomycin Cancelled 01/10/24 05:40: WBC 14.6 H, RBC 3.15 L, Hgb 9.6 L, Hct 28.3 L, MCV 89.8 D, MCH 30.5, MCHC 33.9 D, RDW Std Deviation 46.4 H, RDW Coeff of Mele 14.3, Plt Count 386, MPV 9.5, Immature Gran % (Auto) 1.100 H, Neut % (Auto) 86.4 H, Lymph % (Auto) 3.5 L, [place] % (Auto) 6.2, Eos % (Auto) 2.3, Baso % (Auto) 0.5, Absolute Neuts (auto) 12.6 H, Absolute Lymphs (auto) 0.51 L, Nucleated RBC % 0, Sodium 137, Potassium 2.8 L, Chloride 109 H, Carbon Dioxide 18.0 L, Anion Gap 11, BUN 75 H, Creatinine 2.72 H, Estim Creat Clear Calc 20.31, Est GFR (MDRD) Af Amer 23 L, Est GFR (MDRD) Non-Af 19 L, BUN/Creatinine Ratio 27.6 H, Glucose 193 H, Calcium 7.5 L, Total Bilirubin 0.30, AST 5 L, ALT < 6 L, Alkaline Phosphatase 78, Total Protein 5.4 L, Albumin 1.7 L, Globulin 3.7, Albumin/Globulin Ratio 0.5 L, Random Vancomycin 24.0 H Micro: Microbiology 01/07/24 15:44 Urine, Catheterized Urine Culture - Final Citrobacter freundii Providencia rettgeri Serratia fonticola 01/09/24 07:07 Sputum, Induced/Lukens Gram Stain - Final 01/07/24 14:35 Blood Culture (Wb) - Right Forearm Blood Culture - Preliminary No growth in 48 hours. 01/07/24 23:45 Wound - Buttock Gram Stain - Final 01/07/24 23:45 Wound - Buttock Wound Culture - Preliminary Gram negative alfie Physical Exam Const Constitutional Narrative: Intubated, sedated and mechanically ventilated. No ventilator dyssynchrony. HEENT normocephalic and head/scalp atraumatic Mouth: endotracheal tube in place and OG tube in place Eyes EOMs intact bilaterally and conjunctivae normal Neck supple General: trachea midline and CVC in place Chest inspection of chest normal Resp normal respiratory effort Auscultation: diminished lung sounds; Negative for rales, rhonchi or wheezes Cardio regular rate and regular rhythm Heart Sounds: murmur GI normal to inspection, nondistended, normoactive bowel sounds Extremity General Extremity: edema; Negative for clubbing Skin General Skin Exam: venous stasis and dermatitis Neuro Sensorium / Orientation: sedated on vent Charges/Coding Procedures Hospitalists Procedures: [id number] Critical Care 1st Hr
[2024-01-10 11:34] LABS: Allen Test Positive; Base Excess -9 mmol/L (-2 to +2); Bicarbonate 16.5 mmol/L (22-26); Blood Gas Specimen Type ART; Mode CPAP/PS; O2 Delivery Device Adult Vent; PEEP 5; PO2 84 mmHG (75-100); SITE L Radial; SO2 96 % (95-99); Total Carbon Dioxide 17 mmol/L; pCO2 27.4 mmHg (35-45); pH 7.39 (7.35-7.45)
[2024-01-10] MEDS: Cefepime HCl 2 GM in 0.9% Normal Saline (100mL MB+) 100 ML IV (12:10)
[2024-01-10 12:35] LABS: Bedside Glucose 145 mg/dL (74-106)
--- NOTE | 2024-01-10 13:32 | CON.PCM.ID_ITS ---
Assessment & Plan Assessment/Plan (1) Septic shock: PLAN: Ucx with GNR. Wound cx with GNR. On vanc/cefepime, remains on pressors. EDWINA on CKD improved. No fever. Will follow, thank you (2) Chronic kidney disease, stage 3a: HPI Consult Data Date of Consult: 01/10/24 HPI Narrative Reason for Consultation: septic shock HPI Narrative: MARIA D SMITH, is a 63 F with chronic neal, MS, depression, presented 01/06 with several days worsened pain, intermittent altered mental status, not feeling well. Admitted on vanc/cefepime, remains on pressor in icu. Overall feeling better. No abd pain. Full ROS performed and neg except as noted above. [facility] Medical History Diabetes Current use of insulin Hoarseness Acute on chronic urinary retention Neurogenic bladder Vitamin A deficiency Kidney stones Family history of MS (multiple sclerosis) Hyponatremia Muscle spasm Bedbound Anxiety Depression Bilateral knee pain Polyneuropathy Fatigue Multiple sclerosis delivery delivered History of multiple sclerosis Morbid obesity MDRO (multiple drug resistant organisms) resistance Lymphedema Type II diabetes mellitus Home Medications ?Medication ?Instructions ?Recorded ?Last Taken ?Type levothyroxine 50 mcg tablet 50 mcg PO DAILY thyroid 12/21/19 12/02/21 History (Synthroid) duloxetine 60 mg capsule,delayed 60 mg PO BID unsure #180 caps 06/30/21 12/02/21 Rx release atorvastatin 80 mg tablet 80 mg PO DAILY cholesterol 12/03/21 12/02/21 History esomeprazole magnesium 40 mg 40 mg PO DAILY stomach 12/03/21 12/02/21 History capsule,delayed release furosemide 40 mg tablet 80 mg PO BREAKFAST fluid 12/03/21 12/02/21 History metformin 1,000 mg tablet 1,000 mg PO BID DM 12/03/21 12/02/21 History oxycodone-acetaminophen 5 mg-325 1 tab PO TID PRN MS 12/03/21 12/03/21 History mg tablet semaglutide 1 mg/dose (4 mg/3 mL) 1 mg subcut QWEEK dm 12/03/21 08/29/22 History subcutaneous pen injector (Ozempic) buspirone 5 mg tablet 5 mg PO BID pt unsure #60 tabs 02/04/22 Unknown Rx ondansetron 4 mg disintegrating 4 mg PO Q4H PRN PRN Nausea #10 tabs 06/09/22 Unknown Rx tablet midodrine 10 mg tablet 10 mg PO BID Check with primary 08/11/22 Unknown History doctor insulin degludec 200 unit/mL (3 20 unit (0.1 mL) subcut QHS dm #9 09/11/22 12/02/21 Rx mL) subcutaneous pen (Tresiba mL FlexTouch U-200 insulin) levofloxacin 250 mg tablet 250 mg PO DAILY@0600 #5 tabs 09/11/22 Unknown Rx acetaminophen 650 mg 650 mg PO Q12H 02/09/23 Unknown History tablet,extended release (Tylenol Arthritis Pain) baclofen 10 mg tablet 10 mg PO BID 02/09/23 Unknown History baclofen 10 mg tablet 10 mg PO DAILY PRN Muscle Spasm 02/09/23 Unknown History ferrous sulfate 325 mg (65 mg 325 mg PO DAILY 02/09/23 Unknown History iron) tablet (FeroSul) glimepiride 4 mg tablet 4 mg PO BID 02/09/23 Unknown History lorazepam 0.5 mg tablet (Ativan) 0.5 mg PO DAILY PRN 02/09/23 Unknown History sennosides 8.6 mg tablet (Senna 8.6 mg PO DAILY PRN 02/09/23 Unknown History Lax) ocrelizumab 30 mg/mL intravenous See Rx Instructions .Route 12/26/23 Unknown Rx solution (Ocrevus) .COMPLEX #10 mL Allergy/AdvReac Type Severity Reaction Status Date / Time ampicillin (From Unasyn) Allergy Severe Rash Verified 01/07/24 13:05 sulbactam (From Unasyn) Allergy Severe Rash Verified 01/07/24 13:05 ciprofloxacin (From Cipro) Allergy Hives Verified 01/07/24 13:05 ciprofloxacin HCl (From Allergy Hives Verified 01/07/24 13:05 Cipro) clindamycin HCl (From Allergy Hives Verified 02/09/23 08:49 Cleocin) clindamycin palmitate HCl Allergy Hives Verified 01/07/24 13:05 (From Cleocin) clindamycin phosphate (From Allergy Hives Verified 01/07/24 13:05 Cleocin) morphine Allergy Hives Verified 01/07/24 13:05 sulfamethoxazole (From Allergy Hives Verified 01/07/24 13:05 Bactrim) trimethoprim (From Bactrim) Allergy Hives Verified 01/07/24 13:05 hydromorphone HCl (From AdvReac messes Verified 01/07/24 13:05 Dilaudid) with my brain Family History Unknown Multiple sclerosis 1st cousin Father Cancer miner assistant, black lung, Lung CA. Mother Heart disease Diabetes Heart failure Surgical History H/O hernia repair History of cholecystectomy Social History household members: spouse Smoking Status: Never smoker alcohol intake: never substance use type: does not use Physical Exam Const alert, oriented x3 and no apparent distress General Appearance: cooperative HEENT normocephalic and head/scalp atraumatic Eyes PERRL and EOMs intact bilaterally Neck supple and No nodes Resp normal air movement and clear to auscultation bilaterally Cardio regular rate and regular rhythm GI soft to palpation, non-tender and non-distended Extremity General Extremity: edema Skin Skin Narrative: no new rash Neuro CN's II-XII intact bilaterally Lab / Micro Data Attestation: I reviewed the patient's lab results. 01/10/24 05:40 01/10/24 05:40 Labs: Laboratory Results - last 24 hr 01/09/24 16:56: POC Glucose 207 H 01/10/24 05:00: WBC Cancelled, Corrected WBC Cancelled, RBC Cancelled, Hgb Cancelled, Hct Cancelled, MCV Cancelled, MCH Cancelled, MCHC Cancelled, RDW Std Deviation Cancelled, RDW Coeff of Mele Cancelled, Plt Count Cancelled, MPV Cancelled, Immature Gran % (Auto) Cancelled, Neut % (Auto) Cancelled, Lymph % (Auto) Cancelled, [place] % (Auto) Cancelled, Eos % (Auto) Cancelled, Baso % (Auto) Cancelled, Absolute Neuts (auto) Cancelled, Absolute Lymphs (auto) Cancelled, Total Counted Cancelled, Neutrophils % (Manual) Cancelled, Band Neutrophils % Cancelled, Lymphocytes % (Manual) Cancelled, Monocytes % (Manual) Cancelled, Eosinophils % (Manual) Cancelled, Basophils % (Manual) Cancelled, Metamyelocytes % Cancelled, Myelocytes % Cancelled, Promyelocytes % Cancelled, Blast Cells % Cancelled, Plasma Cell % (Manual) Cancelled, Other Cells % Cancelled, Nucleated RBC % Cancelled, Nucleated RBCs/100 WBC Cancelled, Differential Comment Cancelled, Diff Path Review Cancelled, Hypersegmented Neuts Cancelled, Atypical Lymphocytes Cancelled, Reactive Lymphocytes Cancelled, Smudge Cells Cancelled, Toxic Granulation Cancelled, Toxic Vacuolation Cancelled, Dohle Bodies Cancelled, Noemí Rods Cancelled, Platelet Estimate Cancelled, Plt Morphology Comment Cancelled, RBC Morphology Cancelled 01/10/24 05:00: RBC Morphology Cancelled, Polychromasia Cancelled, Hypochromasia Cancelled, Basophilic Stippling Cancelled, Anisocytosis Cancelled, Microcytosis Cancelled, Macrocytosis Cancelled, Spherocytes Cancelled, Sickle Cells Cancelled, Target Cells Cancelled, Tear Drop Cells Cancelled, Ovalocytes Cancelled, Stomatocytes Cancelled, [place] Bodies Cancelled, Barber Cells Cancelled, Bite Cells Cancelled, Crenated Cell Cancelled, Acanthocytes (Spur) Cancelled, Rouleaux Cancelled, Schistocytes Cancelled, Sodium Cancelled, Potassium Cancelled, Chloride Cancelled, Carbon Dioxide Cancelled, Anion Gap Cancelled, BUN Cancelled, Creatinine Cancelled, Estim Creat Clear Calc Cancelled, Est GFR (MDRD) Af Amer Cancelled, Est GFR (MDRD) Non-Af Cancelled, BUN/Creatinine Ratio Cancelled, Glucose Cancelled, Calcium Cancelled, Total Bilirubin Cancelled, AST Cancelled, ALT Cancelled, Alkaline Phosphatase Cancelled, Total Protein Cancelled, Albumin Cancelled, Globulin Cancelled, Albumin/Globulin Ratio Cancelled, Random Vancomycin Cancelled 01/10/24 05:40: WBC 14.6 H, RBC 3.15 L, Hgb 9.6 L, Hct 28.3 L, MCV 89.8 D, MCH 30.5, MCHC 33.9 D, RDW Std Deviation 46.4 H, RDW Coeff of Mele 14.3, Plt Count 386, MPV 9.5, Immature Gran % (Auto) 1.100 H, Neut % (Auto) 86.4 H, Lymph % (Auto) 3.5 L, [place] % (Auto) 6.2, Eos % (Auto) 2.3, Baso % (Auto) 0.5, Absolute Neuts (auto) 12.6 H, Absolute Lymphs (auto) 0.51 L, Nucleated RBC % 0, Sodium 137, Potassium 2.8 L, Chloride 109 H, Carbon Dioxide 18.0 L, Anion Gap 11, BUN 75 H, Creatinine 2.72 H, Estim Creat Clear Calc 20.31, Est GFR (MDRD) Af Amer 23 L, Est GFR (MDRD) Non-Af 19 L, BUN/Creatinine Ratio 27.6 H, Glucose 193 H, C alcium 7.5 L, Total Bilirubin 0.30, AST 5 L, ALT < 6 L, Alkaline Phosphatase 78, Total Protein 5.4 L, Albumin 1.7 L, Globulin 3.7, Albumin/Globulin Ratio 0.5 L, Random Vancomycin 24.0 H 01/10/24 12:09: POC Glucose 145 H Micro: Microbiology 01/09/24 07:07 Sputum, Induced/Lukens Gram Stain - Final 01/09/24 07:07 Sputum, Induced/Lukens Respiratory Culture - Preliminary Staphylococcus aureus 01/07/24 15:44 Urine, Catheterized Urine Culture - Final Citrobacter freundii Providencia rettgeri Serratia fonticola 01/07/24 14:35 Blood Culture (Wb) - Right Forearm Blood Culture - Preliminary No growth in 48 hours. 01/07/24 23:45 Wound - Buttock Gram Stain - Final 01/07/24 23:45 Wound - Buttock Wound Culture - Preliminary Gram negative alfie ABG Data ABG results: ABG 01/10/24 11:13 Specimen Type ART Sample Site L Radial pH 7.39 Bicarbonate Actual 16.5 L Total CO2 17 Base Excess -9 L O2 Saturation 96 O2 % 21.0 ABG pCO2 27.4 L ABG pO2 84 Barak Test Positive O2 Delivery Device Adult Vent Vent Mode CPAP/PS POC PEEP 5
[2024-01-10 13:55] LABS: Anion Gap 12 (5-15); BUN 72 mg/dL (7-18); BUN/Creat Ratio 26.8 RATIO (10-20); Calcium,Total 7.7 mg/dL (8.5-10.1); Chloride 110 mmol/L (98-107); Creatinine, Serum 2.69 mg/dL (0.55-1.02); EST Glomerular Filtration Rate 19 mL/min (>60); Est Glom Filt Rate - Afr Amer 23 mL/min (>60); Estimated Creatinine Clearance 20.53 ml/min; Glucose 158 mg/dL (74-106); Potassium 4.1 mmol/L (3.5-5.1); Sodium Level 138 mmol/L (136-145)
[2024-01-10] MEDS: fentaNYL 100 MCG/2 ML Ampul 25 MCG IV ×2 (14:29→20:59)
[2024-01-10] MEDS: Heparin Injection (Vial) 5,000 UNIT/ML VIAL 5000 UNIT SC ×2 (14:30→21:02)
--- NOTE | 2024-01-10 15:19 | CHAPLAIN ---
Type of Pastoral Visit _x__ Initial Visit ___ Follow-up Visit ___ On-call Visit ___ General Patient Visit ___ Spiritual Assessment ___ Family Conference ___ Bereavement ___ Rapid Response ___ Code Blue ___ Other (describe below) Pastoral Care Referral From _x__ Patient ___ Family ___ Nurse ___ Physician ___ Dental Appliance Fixer ___ Retail Selling Specialist ___ Other (describe below) Sacrament/Intervention _x__ Active listening ___ Anointing ___ Advent ___ Bereavement ___ Communion _x__ Eva exploration ___ ___ Life review _x__ Prayer ___ Reconciliation ___ Sacrament of Sick _x__ Supportive presence ___ Wedding ___ Other (describe below) Pastoral Comments patient was extubated earlier today and is alert; pt is welcoming but needs to talk slowly so time is given; pt is concerned for her spiritual life and states I need to get to moravian again; pt is given opportunity to express her fears about 'not being able to breath and not making it'; pt has some family help and expresses thankfulness for the help of the hospital team; pt again acknowledges her hope to reconnect with God and to pray; pt is given affirmation in her desires and talked through how she can make a connection with God in her way and in her honest attempts; presence and prayer given for patient
--- NOTE | 2024-01-10 15:48 | PCM.PN.HOSP ---
Reason for Visit Reason for Visit: Diagnoses Sepsis, unspecified organism (01/07/24) Acute metabolic acidosis (01/07/24) Local infection of the skin and subcutaneous tissue, unspecified (01/07/24) Pressure ulcer of unspecified site, unspecified stage (01/07/24) Acute kidney failure, unspecified (01/07/24) Chronic kidney disease, stage 3a (01/07/24) Calculus of kidney (01/07/24) Severe sepsis with septic shock (01/07/24) Subjective Subjective Patient was seen and examined today, at the time of my visit she was still on the ventilator. I talk with pulmonary medicine about her care later on in the morning and it was planned that she would be extubated if possible today. I talked also with nephrology and they recommended having urology see the patient for ureteral stent replacement, I contacted Dr Canales and she will see the patient. Finally, I had a discussion with the patient's son by phone today, he states he is her medical power of high pressure operator and I told him that there would be a likelihood that she would need her stents replaced and he was okay with this. Patient does have a but he is not medical power of high pressure operator presently according to the son. Objective Data Objective Data Vital Signs: Vital Signs Temp Pulse Resp BP Pulse Ox O2 Del Method FiO2 97.0 F L 102 H 19 H 134/82 H 100 Room Air 21 01/10/24 12:00 01/10/24 13:00 01/10/24 13:00 01/10/24 13:00 01/10/24 13:00 01/10/24 13:00 01/10/24 10:00 Oxygen Delivery Method Room Air Weight: 79.8 kg Body Mass Index (BMI) 35.5 Intake & Output: Intake and Output for Last 24 Hours 01/08/24 01/09/24 01/10/24 23:59 23:59 23:59 Intake Total 2652.01 / 2658.59 2583.65 / 2646.65 2100.48 / 2100.48 Output Total 530 / 580 625 / 800 575 / 575 Balance 2121.01 / 2077.59 1958.65 / 1846.65 1525.48 / 1525.48 Lab / Micro Data 01/10/24 05:40 01/10/24 13:35 Labs: Laboratory Results - last 24 hr 01/09/24 16:56: POC Glucose 207 H 01/10/24 05:00: WBC Cancelled, Corrected WBC Cancelled, RBC Cancelled, Hgb Cancelled, Hct Cancelled, MCV Cancelled, MCH Cancelled, MCHC Cancelled, RDW Std Deviation Cancelled, RDW Coeff of Mele Cancelled, Plt Count Cancelled, MPV Cancelled, Immature Gran % (Auto) Cancelled, Neut % (Auto) Cancelled, Lymph % (Auto) Cancelled, [place] % (Auto) Cancelled, Eos % (Auto) Cancelled, Baso % (Auto) Cancelled, Absolute Neuts (auto) Cancelled, Absolute Lymphs (auto) Cancelled, Total Counted Cancelled, Neutrophils % (Manual) Cancelled, Band Neutrophils % Cancelled, Lymphocytes % (Manual) Cancelled, Monocytes % (Manual) Cancelled, Eosinophils % (Manual) Cancelled, Basophils % (Manual) Cancelled, Metamyelocytes % Cancelled, Myelocytes % Cancelled, Promyelocytes % Cancelled, Blast Cells % Cancelled, Plasma Cell % (Manual) Cancelled, Other Cells % Cancelled, Nucleated RBC % Cancelled, Nucleated RBCs/100 WBC Cancelled, Differential Comment Cancelled, Diff Path Review Cancelled, Hypersegmented Neuts Cancelled, Atypical Lymphocytes Cancelled, Reactive Lymphocytes Cancelled, Smudge Cells Cancelled, Toxic Granulation Cancelled, Toxic Vacuolation Cancelled, Dohle Bodies Cancelled, Noemí Rods Cancelled, Platelet Estimate Cancelled, Plt Morphology Comment Cancelled, RBC Morphology Cancelled 01/10/24 05:00: RBC Morphology Cancelled, Polychromasia Cancelled, Hypochromasia Cancelled, Basophilic Stippling Cancelled, Anisocytosis Cancelled, Microcytosis Cancelled, Macrocytosis Cancelled, Spherocytes Cancelled, Sickle Cells Cancelled, Target Cells Cancelled, Tear Drop Cells Cancelled, Ovalocytes Cancelled, Stomatocytes Cancelled, [place] Bodies Cancelled, Barber Cells Cancelled, Bite Cells Cancelled, Crenated Cell Cancelled, Acanthocytes (Spur) Cancelled, Rouleaux Cancelled, Schistocytes Cancelled, Sodium Cancelled, Potassium Cancelled, Chloride Cancelled, Carbon Dioxide Cancelled, Anion Gap Cancelled, BUN Cancelled, Creatinine Cancelled, Estim Creat Clear Calc Cancelled, Est GFR (MDRD) Af Amer Cancelled, Est GFR (MDRD) Non-Af Cancelled, BUN/Creatinine Ratio Cancelled, Glucose Cancelled, Calcium Cancelled, Total Bilirubin Cancelled, AST Cancelled, ALT Cancelled, Alkaline Phosphatase Cancelled, Total Protein Cancelled, Albumin Cancelled, Globulin Cancelled, Albumin/Globulin Ratio Cancelled, Random Vancomycin Cancelled 01/10/24 05:40: WBC 14.6 H, RBC 3.15 L, Hgb 9.6 L, Hct 28.3 L, MCV 89.8 D, MCH 30.5, MCHC 33.9 D, RDW Std Deviation 46.4 H, RDW Coeff of Mele 14.3, Plt Count 386, MPV 9.5, Immature Gran % (Auto) 1.100 H, Neut % (Auto) 86.4 H, Lymph % (Auto) 3.5 L, [place] % (Auto) 6.2, Eos % (Auto) 2.3, Baso % (Auto) 0.5, Absolute Neuts (auto) 12.6 H, Absolute Lymphs (auto) 0.51 L, Nucleated RBC % 0, Sodium 137, Potassium 2.8 L, Chloride 109 H, Carbon Dioxide 18.0 L, Anion Gap 11, BUN 75 H, Creatinine 2.72 H, Estim Creat Clear Calc 20.31, Est GFR (MDRD) Af Amer 23 L, Est GFR (MDRD) Non-Af 19 L, BUN/Creatinine Ratio 27.6 H, Glucose 193 H, Calcium 7.5 L, Total Bilirubin 0.30, AST 5 L, ALT < 6 L, Alkaline Phosphatase 78, Total Protein 5.4 L, Albumin 1.7 L, Globulin 3.7, Albumin/Globulin Ratio 0.5 L, Random Vancomycin 24.0 H 01/10/24 12:09: POC Glucose 145 H 01/10/24 13:35: Sodium 138, Potassium 4.1, Chloride 110 H, Carbon Dioxide 17.0 L, Anion Gap 12, BUN 72 H, Creatinine 2.69 H, Estim Creat Clear Calc 20.53, Est GFR (MDRD) Af Amer 23 L, Est GFR (MDRD) Non-Af 19 L, BUN/Creatinine Ratio 26.8 H, Glucose 158 H, Calcium 7.7 L Micro: Microbiology 01/09/24 07:07 Sputum, Induced/Lukens Gram Stain - Final 01/09/24 07:07 Sputum, Induced/Lukens Respiratory Culture - Preliminary Staphylococcus aureus 01/07/24 15:44 Urine, Catheterized Urine Culture - Final Citrobacter freundii Providencia rettgeri Serratia fonticola 01/07/24 14:35 Blood Culture (Wb) - Right Forearm Blood Culture - Preliminary No growth in 48 hours. 01/07/24 23:45 Wound - Buttock Gram Stain - Final 01/07/24 23:45 Wound - Buttock Wound Culture - Preliminary Gram negative alfie ABG Data ABG results: ABG 01/10/24 11:13 Specimen Type ART Sample Site L Radial pH 7.39 Bicarbonate Actual 16.5 L Total CO2 17 Base Excess -9 L O2 Saturation 96 O2 % 21.0 ABG pCO2 27.4 L ABG pO2 84 Barak Test Positive O2 Delivery Device Adult Vent Vent Mode CPAP/PS POC PEEP 5 Physical Exam Const Constitutional Narrative: Patient is sedated on the ventilator at this time General Appearance: well developed HEENT normocephalic, head/scalp atraumatic and moist oral mucous membranes Eyes conjunctivae normal Neck no JVD and thyroid normal General: trachea midline Resp normal respiratory effort and clear to auscultation bilaterally Auscultation: Negative for rales, rhonchi or wheezes Cardio regular rate, regular rhythm, S1 normal heart sound, S2 normal heart sound, no murmurs, no rub and no gallops GI normal to inspection, nondistended, normoactive bowel sounds, soft to palpation, non-tender and non-distended Extremity no clubbing, cyanosis or edema Skin no rashes or lesions noted General Skin Exam: no breakdown Neuro Neuro Narrative: Patient is sedated and on the ventilator Sensorium / Orientation: alert Psych Psych Narrative: Patient is sedated and on the ventilator Assessment & Plan Assessment/Plan (1) Septic shock: PLAN: Plan 1. Septic shock-patient currently has Staph aureus growing from her sputum and 3 different bacteria growing in her urine, continue present antibiotic coverage #2 acute cystitis-patient has 3 different bacteria growing from her urine, these bacteria are low numbers however, patient will continue present antibiotics-it appears that the cefepime does not cover Serratia but does cover Citrobacter and procidentia. #3 acute hypoxic respiratory failure-pulmonary plans to extubate the patient today if possible #4 MS-complicates care, management, recovery, and prognosis #5 type 2 diabetes-patient's blood sugars will be monitored, sliding scale insulin will be administered as needed #6 chronic pain-patient is currently on IV fentanyl as needed Total clinical time spent by myself addressing the patient's medical issues, reviewing all of her data, and collaborating with patient's care team: 35 minutes Charges/Coding Visit Charges Inpatient E&M: 82233 Subs Hosp L2
--- NOTE | 2024-01-10 15:55 | CASEMGMT ---
SW has not heard back from [facility]. SW met with patient. Patient was lying in bed moaning and groaning. SW asked patient if SW could help her. Patient asked if she could sit up more. SW asked patient's RN and patient can sit up more. SW assisted patient in sitting up more. Patient continued to be upset and express she is scared. SW listened and provided emotional support to patient. Patient said she is anxious and needs medication. SW did talk with the nurse and she will ask the physician about anxiety medication for patient. SW told patient this information. SW asked patient about her wounds. Patient said she doesn't call them wounds she calls them bad things. SW asked if her wounds are being cared for and patient did say the nurses were changing the dressings twice a week. Patient said she feels her family is caring for her the best they can. Patient feels safe at home. Patient continued to be anxious. SW attempted to distract patient by asking about what she likes to do. Patient likes to read [employer] novels. Patient said she likes to watch cartoons. SW put cartoons on the television for patient per her request. SW reminded patient that there are nurses right outside of her room and SW showed patient the button to hit to call the nurse. Patient continued to try breathing exercises to calm herself down. SW told patient SW has to leave, but SW can check back with her tomorrow. Patient thanked SW for talking with her. SW will continue to follow and assist with appropriate d/c planning. Adriana BURRIS
[2024-01-10] MEDS: Haloperidol Lactate 5 MG/ML Vial IV ×2 (16:37→21:00)
[2024-01-10 17:50] LABS: Bedside Glucose 151 mg/dL (74-106)
[2024-01-10] MEDS: Pantoprazole Sodium 40 MG in 0.9% Normal Saline (100mL MB+) 100 ML 330 MG IV (21:01)
[2024-01-11] VITALS (34 sets, daily range): BP systolic 91–124; BP diastolic 51–87; PULSE 94–120; RESP 14–23; TEMP 36.3–36.8; O2SAT 98–100; BMI 35.4
[2024-01-11] MEDS: Haloperidol Lactate 5 MG/ML Vial IV (00:37)
[2024-01-11] MEDS: fentaNYL 100 MCG/2 ML Ampul 25 MCG IV ×2 (03:57→10:23)
[2024-01-11] MEDS: Vancomycin Trough/Random Due 1 LAB MC (04:12)
[2024-01-11 04:15] LABS: Absolute Lymphocyte Count 0.61 X10^3/uL (0.83-4.51); Absolute Neutrophil Count 15.5 X10^3/uL (2.0-7.7); Basophil# 0.08 X10^3/uL; Basophil% 0.5 % (0-1); Eosinophil# 0.07 X10^3/uL; Eosinophils% 0.4 % (0-5); Hematocrit 29.1 % (37-47); Hemoglobin 9.8 g/dL (12.0-15.0); Lymphocyte # 0.61 X10^3/ul (0.83-4.51); Lymphocyte % 3.5 % (19-41); Mean Corp Hgb Conc 33.7 g/dL (32-36); Mean Corpuscular Hgb 30.5 pg (27.0-32.0); Mean Corpuscular Volume 90.7 fL (81-99); Mean Platelet Vol. 9.4 fl (6.2-12.0); Monocyte% 4.6 % (0-10); NRBC Flagged by Analyzer 0 % (0-5); Neutrophil # 15.45 X10^3/uL (2.7-7.7); Neutrophil % 88.4 % (47-70); Platelet Count 329 K/mm3 (150-450); RBC Distribution Width CV 14.6 % (11.6-14.6); RBC Distribution Width SD 47.8 fl (35.1-43.9); Red Blood Count 3.21 M/mm3 (4.2-5.4); White Blood Count 17.5 K/mm3 (4.4-11.0)
[2024-01-11] MEDS: Norepinephrine 8 MG in 0.9% Normal Saline (250mL Bag) 242 ML 5.6 MG CONT INF (04:27)
[2024-01-11 04:36] LABS: Vancomycin, Random Level 22.3 ug/mL (0.0-15.0)
[2024-01-11 04:38] LABS: ALB/GLOB Ratio 0.4 RATIO (0.9-2.4); AST(SGOT) 6 U/L (15-37); Alanine Aminotransfer ALT/SGPT 8 U/L (13-56); Albumin, Serum 1.8 g/dL (3.2-5.0); Alkaline Phosphatase 88 U/L (45-117); Anion Gap 13 (5-15); BUN 73 mg/dL (7-18); BUN/Creat Ratio 27.8 RATIO (10-20); Calcium,Total 7.7 mg/dL (8.5-10.1); Chloride 110 mmol/L (98-107); Creatinine, Serum 2.63 mg/dL (0.55-1.02); EST Glomerular Filtration Rate 20 mL/min (>60); Est Glom Filt Rate - Afr Amer 24 mL/min (>60); Glucose 190 mg/dL (74-106); Potassium 3.5 mmol/L (3.5-5.1); Protein, Total 5.8 g/dL (6.4-8.2); Sodium Level 139 mmol/L (136-145)
--- NOTE | 2024-01-11 04:45 | PCM.RX.CS ---
Consult Antibiotic Management Pharmacy has been consulted to manage selected antibiotic: Vancomycin Type of Intervention Type of Consult: Follow-up Suspected Infection Suspected Infection: Sepsis Labs Labs: Sodium 139 mmol/L (136-145) 01/11/24 04:00 Potassium 3.5 mmol/L (3.5-5.1) 01/11/24 04:00 Chloride 110 mmol/L (98-107) H 01/11/24 04:00 Carbon Dioxide 15.0 mmol/L (21.0-32.0) L 01/11/24 04:00 Anion Gap 13 (5-15) 01/11/24 04:00 BUN 73 mg/dL (7-18) H 01/11/24 04:00 Creatinine 2.63 mg/dL (0.55-1.02) H 01/11/24 04:00 Est GFR (MDRD) Af Amer 24 mL/min (>60) L 01/11/24 04:00 Est GFR (MDRD) Non-Af 20 mL/min (>60) L 01/11/24 04:00 BUN/Creatinine Ratio 27.8 RATIO (10-20) H 01/11/24 04:00 Glucose 190 mg/dL (74-106) H 01/11/24 04:00 Random Vancomycin 22.3 ug/mL (0.0-15.0) H 01/11/24 04:00 Microbiology Microbiology: Microbiology 01/09/24 07:07 Sputum, Induced/Lukens Gram Stain - Final 01/09/24 07:07 Sputum, Induced/Lukens Respiratory Culture - Preliminary Staphylococcus aureus 01/07/24 15:44 Urine, Catheterized Urine Culture - Final Citrobacter freundii Providencia rettgeri Serratia fonticola 01/07/24 14:35 Blood Culture (Wb) - Right Forearm Blood Culture - Preliminary No growth in 48 hours. 01/07/24 23:45 Wound - Buttock Gram Stain - Final 01/07/24 23:45 Wound - Buttock Wound Culture - Preliminary Gram negative alfie Dosing Weight Weight used for dosin.8 kg Estimated Creatinine Clearance Estimated Creatinine Clearance: 21 Goal Trough Goal Trough: 15-20 mcg/mL Pharmacy Plan for Drug Dosing Pharmacy Plan for Drug Dosing: Random vancomycin level drawn 01/11/24 @0400 was 22.3. This was a drop of less than 2mcg/ml over 24 hours with no additional dosing and no significant change to renal status. We will continue to hold dosing, and will draw another random level in two days. Pharmacy Service will continue to monitor and adjust dosing as required. Follow-Up Labs Follow-Up Labs: Trough: Vancomycin (random) Date/Time Labs Ordered Labs to be done on [date and time ordered]: 01/13/24 @0600 (random)
[2024-01-11] MEDS: Heparin Injection (Vial) 5,000 UNIT/ML VIAL 5000 UNIT SC ×3 (06:14→20:43)
[2024-01-11] MEDS: Menthol/Lanolin/Calamine/Znox 113 GM Tube 1 APPLIC TOPICAL ×3 (06:15→20:43)
[2024-01-11] MEDS: Insulin Lispro 100 UNIT/ML INSULN.PEN SC ×2 (06:18→12:15)
[2024-01-11 06:39] LABS: Bedside Glucose 156 mg/dL (74-106)
--- NOTE | 2024-01-11 08:09 | PN.CC_ITS ---
Assessment & Plan Assessment/Plan (1) Septic shock: PLAN: Plan RECOMMENDATIONS: 1. Continue antimicrobials per ID recommendations. 2. Urology evaluation is pending regarding stent management. 3. Encourage incentive spirometer use and mobilize patient as tolerated. 4. Continue appropriate DVT prophylaxis. 5. The patient is medically stable for transfer out of the intensive care unit. Will sign off from a critical care perspective. IMPRESSIONS: 1. Septic shock Resolved. Clinical concern for underlying complicated UTI. The patient has improved clinically with antimicrobials. She has been successfully weaned from vasopressor support and remains hemodynamically stable. Plan to continue antimicrobials per ID recommendations. Urology evaluation is pending regarding stent management. 2. Acute kidney injury Suspected ATN in the setting of septic shock. Nephrology is following to assist with medical management. No current indication for renal replacement therapy. 3. Acute respiratory failure Resolved. The patient was intubated as a consequence of her presenting encephalopathy. With supportive care, the patient's mentation improved and she was able to be extubated on January 09. Sputum culture is currently demonstrating growth of MRSA, for which the patient remains on antimicrobials. Continue to encourage incentive spirometer use and mobilize patient as tolerated. 4. Encephalopathy Resolved. Likely multifactorial in etiology with underlying metabolic derangements along with baseline MS contributing. Continue supportive measures as noted above. 5. Anemia/diabetes mellitus/GERD/hypothyroidism/depression/anxiety/history of multiple sclerosis Complicates care, management, recovery and prognosis. Continue current supportive care. Transfuse if hemoglobin drops below 7 g/dL. Continue PPI therapy. The patient was previously noted to be active with home hospice care. The services were apparently revoked upon admission to the hospital. This note was generated with [employer] dictation software. It may contain incorrect words, spelling, and punctuation that were not noted in checking the note before signing. Subjective Subjective The patient was seen and examined at the bedside this morning. Events from the last 24 hours have been reviewed. The patient is currently afebrile, hemodynamically stable and maintaining appropriate oxygen saturations on room air. The patient has done well from a respiratory perspective following extubation yesterday. She has been weaned successfully from vasopressor support. White blood cell count is elevated at 17,000. Creatinine has improved to 2.63. Urology evaluation is pending. Objective Data Objective Data The patient's most recent lab work, culture data and imaging studies have all been personally reviewed. Buttock wound culture was positive for gram-negative alfie. Sputum culture is positive for MRSA. Urine culture is positive for Citrobacter, Providencia and Serratia. Vital Signs: Vital Signs Temp Pulse Resp BP Pulse Ox O2 Del Method FiO2 97.3 F L 120 H 23 H 101/67 99 Room Air 21 01/11/24 06:00 01/11/24 07:00 01/11/24 07:00 01/11/24 07:45 01/11/24 07:00 01/11/24 07:00 01/10/24 10:00 Oxygen Delivery Method Room Air Weight: 175 lb 11.335 oz Body Mass Index (BMI) 35.4 Intake & Output: Intake and Output for Last 24 Hours 01/09/24 01/10/24 01/11/24 23:59 23:59 23:59 Intake Total 2583.65 / 2646.65 2304.48 / 2313.88 55.38 / 55.38 Output Total 625 / 800 695 / 895 350 / 350 Balance 1958.65 / 1846.65 1609.48 / 1418.88 -294.62 / -294.62 Lab / Micro Data Attestation: I reviewed the patient's lab results. 01/11/24 04:00 01/11/24 04:00 Labs: Laboratory Results - last 24 hr 01/10/24 12:09: POC Glucose 145 H 01/10/24 13:35: Sodium 138, Potassium 4.1, Chloride 110 H, Carbon Dioxide 17.0 L , Anion Gap 12, BUN 72 H, Creatinine 2.69 H, Estim Creat Clear Calc 20.53, Est GFR (MDRD) Af Amer 23 L, Est GFR (MDRD) Non-Af 19 L, BUN/Creatinine Ratio 26.8 H , Glucose 158 H, Calcium 7.7 L 01/10/24 17:33: POC Glucose 151 H 01/11/24 04:00: WBC 17.5 H, RBC 3.21 L, Hgb 9.8 L, Hct 29.1 L, MCV 90.7, MCH 30.5, MCHC 33.7, RDW Std Deviation 47.8 H, RDW Coeff of Mele 14.6, Plt Count 329, MPV 9.4, Immature Gran % (Auto) 2.600 H, Neut % (Auto) 88.4 H, Lymph % (Auto) 3.5 L, [place] % (Auto) 4.6, Eos % (Auto) 0.4, Baso % (Auto) 0.5, Absolute Neuts (auto) 15.5 H, Absolute Lymphs (auto) 0.61 L, Nucleated RBC % 0, Sodium 139, Potassium 3.5, Chloride 110 H, Carbon Dioxide 15.0 L, Anion Gap 13, BUN 73 H, C reatinine 2.63 H, Estim Creat Clear Calc 21.00, Est GFR (MDRD) Af Amer 24 L, Est GFR (MDRD) Non-Af 20 L, BUN/Creatinine Ratio 27.8 H, Glucose 190 H, Calcium 7.7 L, Total Bilirubin 0.40, AST 6 L, ALT 8 L, Alkaline Phosphatase 88, Total Protein 5.8 L, Albumin 1.8 L, Globulin 4.0, Albumin/Globulin Ratio 0.4 L, Random Vancomycin 22.3 H 01/11/24 06:17: POC Glucose 156 H Micro: Microbiology 01/09/24 07:07 Sputum, Induced/Lukens Gram Stain - Final 01/09/24 07:07 Sputum, Induced/Lukens Respiratory Culture - Preliminary Staphylococcus aureus 01/07/24 15:44 Urine, Catheterized Urine Culture - Final Citrobacter freundii Providencia rettgeri Serratia fonticola 01/07/24 14:35 Blood Culture (Wb) - Right Forearm Blood Culture - Preliminary No growth in 48 hours. 01/07/24 23:45 Wound - Buttock Gram Stain - Final 01/07/24 23:45 Wound - Buttock Wound Culture - Preliminary Gram negative alfie ABG Data ABG results: ABG 01/10/24 11:13 Specimen Type ART Sample Site L Radial pH 7.39 Bicarbonate Actual 16.5 L Total CO2 17 Base Excess -9 L O2 Saturation 96 O2 % 21.0 ABG pCO2 27.4 L ABG pO2 84 Barak Test Positive O2 Delivery Device Adult Vent Vent Mode CPAP/PS POC PEEP 5 Physical Exam Const alert and no apparent distress Constitutional Narrative: Chronically ill and debilitated in appearance. General Appearance: cooperative HEENT normocephalic and head/scalp atraumatic Eyes EOMs intact bilaterally and conjunctivae normal Neck supple General: trachea midline and CVC in place Chest inspection of chest normal Resp normal respiratory effort Auscultation: diminished lung sounds; Negative for rales, rhonchi or wheezes Cardio regular rate and regular rhythm Heart Sounds: murmur GI normal to inspection, nondistended, normoactive bowel sounds Extremity General Extremity: edema; Negative for clubbing Skin General Skin Exam: venous stasis and dermatitis Neuro CN's II-XII intact bilaterally and no focal motor deficits Psych Mood & Affect: flat affect Charges/Coding Visit Charges Inpatient E&M: 17670 [facility] Hosp L3
[2024-01-11] MEDS: Pantoprazole Sodium 40 MG in 0.9% Normal Saline (100mL MB+) 100 ML 330 MG IV ×2 (08:32→20:48)
[2024-01-11] MEDS: Cefepime HCl 2 GM in 0.9% Normal Saline (100mL MB+) 100 ML IV (09:06)
--- NOTE | 2024-01-11 09:32 | PN.HOSP_ITS ---
Reason for Visit Reason for Visit: Diagnoses Sepsis, unspecified organism (01/07/24) Acute metabolic acidosis (01/07/24) Local infection of the skin and subcutaneous tissue, unspecified (01/07/24) Pressure ulcer of unspecified site, unspecified stage (01/07/24) Acute kidney failure, unspecified (01/07/24) Chronic kidney disease, stage 3a (01/07/24) Calculus of kidney (01/07/24) Severe sepsis with septic shock (01/07/24) Subjective Subjective Patient was seen and examined today, she was extubated yesterday and she is currently doing well. Patient is on room air at this time and her blood pressure is acceptable off pressors. White blood cell count today was 17.5 and hemoglobin was 9.8. Creatinine appears stable at 2.63, BUN was 73. Patient appears stable for transfer to PCU for further care, I talked briefly with pulmonary medicine about her care. Objective Data Objective Data Vital Signs: Vital Signs Temp Pulse Resp BP Pulse Ox O2 Del Method FiO2 98.2 F 105 H 17 112/74 99 Room Air 21 01/11/24 08:00 01/11/24 09:00 01/11/24 09:00 01/11/24 09:00 01/11/24 09:00 01/11/24 09:00 01/10/24 10:00 Oxygen Delivery Method Room Air Weight: 79.7 kg Body Mass Index (BMI) 35.4 Intake & Output: Intake and Output for Last 24 Hours 01/09/24 01/10/24 01/11/24 23:59 23:59 23:59 Intake Total 2583.65 / 2646.65 2304.48 / 2313.88 165.38 / 165.38 Output Total 625 / 800 695 / 895 350 / 350 Balance 1958.65 / 1846.65 1609.48 / 1418.88 -184.62 / -184.62 Lab / Micro Data 01/11/24 04:00 01/11/24 04:00 Labs: Laboratory Results - last 24 hr 01/10/24 12:09: POC Glucose 145 H 01/10/24 13:35: Sodium 138, Potassium 4.1, Chloride 110 H, Carbon Dioxide 17.0 L , Anion Gap 12, BUN 72 H, Creatinine 2.69 H, Estim Creat Clear Calc 20.53, Est GFR (MDRD) Af Amer 23 L, Est GFR (MDRD) Non-Af 19 L, BUN/Creatinine Ratio 26.8 H , Glucose 158 H, Calcium 7.7 L 01/10/24 17:33: POC Glucose 151 H 01/11/24 04:00: WBC 17.5 H, RBC 3.21 L, Hgb 9.8 L, Hct 29.1 L, MCV 90.7, MCH 30.5, MCHC 33.7, RDW Std Deviation 47.8 H, RDW Coeff of Mele 14.6, Plt Count 329, MPV 9.4, Immature Gran % (Auto) 2.600 H, Neut % (Auto) 88.4 H, Lymph % (Auto) 3.5 L, [place] % (Auto) 4.6, Eos % (Auto) 0.4, Baso % (Auto) 0.5, Absolute Neuts (auto) 15.5 H, Absolute Lymphs (auto) 0.61 L, Nucleated RBC % 0, Sodium 139, Potassium 3.5, Chloride 110 H, Carbon Dioxide 15.0 L, Anion Gap 13, BUN 73 H, C reatinine 2.63 H, Estim Creat Clear Calc 21.00, Est GFR (MDRD) Af Amer 24 L, Est GFR (MDRD) Non-Af 20 L, BUN/Creatinine Ratio 27.8 H, Glucose 190 H, Calcium 7.7 L, Total Bilirubin 0.40, AST 6 L, ALT 8 L, Alkaline Phosphatase 88, Total Protein 5.8 L, Albumin 1.8 L, Globulin 4.0, Albumin/Globulin Ratio 0.4 L, Random Vancomycin 22.3 H 01/11/24 06:17: POC Glucose 156 H Micro: Microbiology 01/09/24 07:07 Sputum, Induced/[place] Gram Stain - Final 01/09/24 07:07 Sputum, Induced/[place] Respiratory Culture - Final Meth. resistant Staph. aureus 01/07/24 23:45 Wound - Buttock Gram Stain - Final 01/07/24 23:45 Wound - Buttock Wound Culture - Preliminary Gram negative alfie Providencia rettgeri Proteus mirabilis Morganella morganii sp morgani GPC Poss Enterococcus sp 01/07/24 15:44 Urine, Catheterized Urine Culture - Final Citrobacter freundii Providencia rettgeri Serratia fonticola 01/07/24 14:35 Blood Culture (Wb) - Right Forearm Blood Culture - Preliminary No growth in 48 hours. ABG Data ABG results: ABG 01/10/24 11:13 Specimen Type ART Sample Site L Radial pH 7.39 Bicarbonate Actual 16.5 L Total CO2 17 Base Excess -9 L O2 Saturation 96 O2 % 21.0 ABG pCO2 27.4 L ABG pO2 84 Barak Test Positive O2 Delivery Device Adult Vent Vent Mode CPAP/PS POC PEEP 5 Physical Exam Const alert and no apparent distress General Appearance: cooperative, well kempt and well developed Orientation / Consciousness: awake, oriented to person and oriented to place HEENT normocephalic, head/scalp atraumatic and moist oral mucous membranes Eyes PERRL, EOMs intact bilaterally and conjunctivae normal Neck supple, no JVD and thyroid normal General: trachea midline Resp normal respiratory effort, no retractions, no use of accessory muscles and clear to auscultation bilaterally Auscultation: Negative for rales, rhonchi or wheezes Cardio regular rate, regular rhythm, S1 normal heart sound, S2 normal heart sound, no murmurs, no rub and no gallops GI normal to inspection, nondistended, normoactive bowel sounds, soft to palpation, non-tender and non-distended Extremity Extremity Narrative: There is generalized edema noted over both lower legs Skin no rashes or lesions noted General Skin Exam: no breakdown Neuro CN's II-XII intact bilaterally and no sensory deficits noted Neuro Narrative: Patient has paraplegia Sensorium / Orientation: awake, alert, oriented to person and oriented to place Speech: speech normal Psych affect normal Assessment & Plan Assessment/Plan (1) Septic shock: PLAN: Plan 1. Septic shock-patient currently has Staph aureus growing from her sputum and 3 different bacteria growing in her urine, continue present antibiotic coverage, infectious diseases participating in her care. #2 acute cystitis-patient has 3 different bacteria growing from her urine, these bacteria are low numbers however, patient will continue present antibiotics-it appears that the cefepime does not cover Serratia but does cover Citrobacter and procidentia. #3 acute hypoxic respiratory [id number] is currently on room air #4 MS-complicates care, management, recovery, and prognosis #5 type 2 diabetes-patient's blood sugars will be monitored, sliding scale insulin will be administered as needed #6 chronic pain-patient is currently on IV fentanyl as needed Patient is currently n.p.o. per speech therapy, they will see the patient today to reevaluate her for oral intake. Total clinical time spent by myself addressing the patient's medical issues, reviewing all of her data, and collaborating with patient's care team: 35 minutes Charges/Coding Visit Charges Inpatient E&M: 88773 Subs Hosp L2
--- NOTE | 2024-01-11 09:55 | WOUNDNOTE ---
skin photo: right lower leg
--- NOTE | 2024-01-11 09:56 | WOUNDNOTE ---
wound photo: left heel
[2024-01-11] MEDS: 0.9% Saline Lock 10 ML Syringe IV ×2 (10:23→20:50)
[2024-01-11 11:58] LABS: Bedside Glucose 168 mg/dL (74-106)
--- NOTE | 2024-01-11 12:05 | WOUNDNOTE ---
wound photo: left posterior leg
--- NOTE | 2024-01-11 12:06 | WOUNDNOTE ---
wound photo: left ischium
--- NOTE | 2024-01-11 12:07 | WOUNDNOTE ---
wound photo: sacrum
--- NOTE | 2024-01-11 12:08 | WOUNDNOTE ---
wound photo: right ischium
--- NOTE | 2024-01-11 12:11 | WOUNDNOTE ---
wound photo: right heel
--- NOTE | 2024-01-11 12:12 | WOUNDNOTE ---
wound photo: left heel
--- NOTE | 2024-01-11 12:13 | CASEMGMT ---
SW spoke with wound RN who stated patient's wounds are in bad shape. SW met with patient. Patient did remember SW from the day before. Patient mentioned yesterday that she had the local hospice at one time, but then switched to [facility]. SW asked patient why she switched. Patient said that her thought it was hospice's fault that patient's MS got worse so she switched. Patient said she just went along with whatever. Patient said she is okay with whichever Hospice. SW spoke with patient about the inpatient hospice unit and going to a shelter. Patient said she is open to either option. SW talked with patient about code status and patient did not understand what that meant so SW explained it to patient. SW explained that in order to go to the inpatient hospice unit she would have to be DNRCC. Patient said she just wants to go somewhere where she will get better care than what she is getting at home. Patient said if she has to pick she would prefer [facility]. SW asked patient if she wanted SW to talk with someone in her family about what we just talked about. Patient said her and/or son Steven. SW will talk with physician as well. Adriana Callaway LOOPER OPERATOR TYPE PHOTOGRAPHY SUPERVISOR
--- NOTE | 2024-01-11 13:59 | ST.MBS ---
Modified Barium Swallow Patient Information Study Date: 01/11/24 Study Time: 13:00 Direct Billable Minutes: 92 Total Minutes procedure & reportin Diagnosis: Multiple sclerosis G35 Referring Physician: Edgar Nice Reason for Referral: Objectively assess swallow function, assess risk for aspiration, and determine recommendations for least restrictive diet textures and compensatory strategies to improve safety of swallow. Medical History: PMH: Acute on chronic urinary retention, Anxiety, Bedbound, Bilateral knee pain, Depression, DM type 2, MS w/ chronic pain, Fatigue, Hoarseness, Hyponatremia, Kidney stones, Lymphedema, MDRO (multiple drug resistant organisms) resistance, Morbid obesity, Muscle spasm, Neurogenic bladder, Polyneuropathy. See EMR for full PMH. Pt presented to [facility] ED 01/07/2024 w/ pain and confusion. Pt was home on hospice, but is currently a full code. She recently developed worsened decubitus ulcers. After ED workup, she was admitted for management of EDWINA and decubitus ulcers, as well as UTI. Pt w/ septic shock. Pt intubated 01/09/2024 due to increasing confusion and agitation, mentation improved w/ further care and pt was extubated 01/10/2024. ST consulted during stay due to concern for aspiration. Prior to intubation, she was on puree textures / thin liquids. Pt was re-evaluated once extubated 01/10/2024 and recommended NPO w/ ice chips and sips of water via straw w/ plans for MBSS 01/11/2024 if appropriate after re-check at bedside. Pt tolerated sips of water and applesauce well at bedside this morning and was recommended for MBSS prior to diet advancement. Pt informed this INTERNET SALES REPRESENTATIVE that she has choked a lot in the past. Current Diet Ordered: NPO, ok for sips of water by straw Mental Status: Impaired (some difficulty w/ recall, able to follow commands w/o difficulty) Respiratory Status: Oxygenating on Room Air Penetration-Aspiration Scale Penetration-Aspiration Scale: OBJECTIVE ASSESSMENT OF SWALLOW FUNCTION (QUANTITATIVE ? PER TRIAL): PENETRATION / ASPIRATION SCALE (ALARCON): 1 = does not enter airway 2 = enters airway/above vocal folds/ejected 3 = enters airway/above vocal folds/not ejected 4 = enters airway/contacts vocal folds/ejected 5 = enters airway/contacts vocal folds/not ejected 6 = enters airway/below vocal folds/ejected 7 = enters airway/below vocal folds/not ejected despite effort 8 = enters airway/below vocal folds/no effort VIDEOFLOROSCOPIC SCALE SCORE (ALARCON): Grade I = aspiration of material that has penetrated into the laryngeal vestibule, intact cough reflex Grade II = aspiration < 10 % of the bolus, intact cough reflex Grade III = aspiration of < 10 % of the bolus, reduced cough reflex or aspiration of > 10 % of the bolus, intact cough reflex Grade IV = aspiration of > 10 % of the bolus, reduced cough reflex Penetration-Aspiration Scale Score Thin Liquid via teaspoon: Result: 2= enter airway/above vocal folds/ejected Thin Liquid via single sip: straw: Result: 3= enters airways/above vocal folds/not ejected Comment: independent use of multiple swallows Gaffney Thick Liquid via single sip: straw: Result: 2= enter airway/above vocal folds/ejected Pudding via teaspoon: Result: 1= does not enter airway Comment: Esophageal screen - Retention in the lower esophagus w/ retrograde flow to the mid esophagus. Thin Liquid via single sip: straw Trial 2: Result: 3= enters airways/above vocal folds/not ejected Comment: Esophageal screen - retention w/ retrograde flow to the upper-middle esophagus. Cued cough and re-swallow after the trial was completed, weak cough demonstrated. Thin Liquid via single sip: straw Effortful swallow: Result: 1= does not enter airway Oral Phase Labial Seal: Escape beyond mid-chin Tongue Control During Bolus Hold: Posterior escape of less than half of bolus Bolus Transport/Lingual Motion: Repetitive/disorganized tongue motion Oral Residue: Residue collection on oral structures Pharyngeal Phase Initiation of Pharyngeal Swallow: Bolus head in pyriforms Soft Palate Elevation: Trace column of contrast/air between soft palate and pharyngeal wall Laryngeal Elevation: Partial superior movement thyroid cart/partial apprx aryt-epig petiole Anterior Hyoid Excursion: Partial anterior movement Epiglottic Movement: Partial inversion Laryngeal Vestibule Closure at Height of Swallow: Incomplete; narrow column of air/contrast in laryngeal vestibule Pharyngeal Stripping Wave: Present - diminished Pharyngoesophageal Segment Opening: Parital distension and partial duration; parital obstruction of flow Tongue Base Retraction: Narrow column of contrast between tongue base & post. pharyngeal wall Pharyngeal Residue: Collection of residue within or on pharyngeal structures Esophageal Phase Esophageal Clearance: Esophageal retention w/ retrograde flow below pharyngoesophageal seg. Treatment Strategies Effects of treatment strategies attemped:: Effortful swallow = effective Multiple swallows = effective (pt indepedently completes) Diagnosis/Impression Diagnosis: Mild oropharyngeal dysphagia R13.12; Esophageal dysphagia R13.14 Impression: Oral phase deficits: -Lingual pumping for A-P transport of pudding. -Decreased bolus control w/ posterior loss of <1/2 of thin by tsp to the pyriforms prior to swallow onset. -Did not assess mastication of cookie due to poor esophageal clearance of pudding and thin liquids. Pharyngeal phase deficits: -Mild delay in swallow onset. -Mild pharyngeal residue due to decreased tongue base retraction, pharyngeal stripping wave, and UES opening/duration. Pt mostly clears residues independently w/ use of multiple swallows. -Decreased airway closure due to decreased anterior hyoid excursion and laryngeal elevation. Laryngeal penetration of thin liquids, which did not reliably eject from the laryngeal vestibule after the swallow. No aspiration was observed. Effortful swallow was most effective in decreasing risk for aspiration. Esophageal phase deficits: -Esophageal retention of pudding in the lower esophagus w/ retrograde flow to the middle esophagus. -Esophageal retention of liquid wash (thin) in the lower esophagus w/ retrograde flow to the upper-middle esophagus. Recommendations Diet: Thin Liquids (Clear liquids) Comment: If increased s/s of aspiration, hold oral intake and resume at a later time as the patient is at risk for reflux aspiration Compensatory Strategies: Small Sips (Effortful/hard swallow each sip), Slow Rate, Multiple Swallows and Sitting upright (During and 60min after oral intake) Supervision: 1:1 Close Supervision Recommend Repeat Modified Barium Swallow: TBD Need for Skilled Speech Therapy Services: Yes Comment: -Train the patient in use of strategies to decrease risk for aspiration and reflux aspiration. -Ongoing assessment of diet tolerance of recommended textures. INTERNET SALES REPRESENTATIVE will assess appropriateness for diet advancement of solids once pt is cleared by GI. -Train the patient in oropharyngeal exercise program to improve bolus control, airway closure, TB retraction, and pharyngeal contraction (lingual resistance, CTAR, Dia, Effortful). Recommended Referrals: GI Consult Education Completed: 1. Described result of evaluation., 2. Pt understands evaluation & agrees with goals and treatment plan. and 7. Pt requires further education on strategies & risks. Status Active ST Patient: Active Contact Information [facility] Speech Therapy:: Светлана Guerra M.A. CCC-INTERNET SALES REPRESENTATIVE? Speech-Language Pathologist?? [facility] [address] [place] [address]? [email or web address]?? [phone]
--- NOTE | 2024-01-11 14:51 | CASEMGMT ---
JANELL called [facility] and spoke with Jolene. Jolene reviewed patient's notes and they are doing dressing changes twice a week and the caregiver was given instructions on wound care. JANELL asked if they have an inpatient hospice unit and they do not. Adriaan BURRIS
[2024-01-11 17:05] LABS: Bedside Glucose 156 mg/dL (74-106)
--- NOTE | 2024-01-11 17:45 | CON.PCM.GI_ITS ---
HPI Consult Data Date of Consult: 01/11/24 HPI Narrative Reason for Consultation: Dysphagia HPI Narrative: MARIA D SMITH, is a 63 F who presented to the ED with altered mental status. She has a history of GERD, hypothyroidism, MS with chronic pain, chronic indwelling Valenzuela, depression and anxiety who presented [facility] 01/07/2024 for continued chronic pain and some decreased level of consciousness. Patient was on hospice for her MS but is full code and was presently being managed at home. She was recently in the hospital for decubitus ulcers. In the ED patient with white blood cell count of 14, did have decreased level of consciousness and blood pressure with systolic 80s to 90s. UA with some leuk esterase and white blood cells but nitrite negative and no bacteria seen. Additionally creatinine 3.46 with a BUN of 94. Patient given broad-spectrum antibiotics and IV fluids. She was sent to the ICU and intubated for sepsis. She was treated with pressors and was able to get off of pressor therapy with IV antibiotics and fluids. Speech therapy was asked to see the patient regarding safety of eating. She she has discovered to have significant oropharyngeal dysphagia along with esophageal dysphagia and poor esophageal clearance. I was asked to see the patient. [facility] Medical History Diabetes Current use of insulin Hoarseness Acute on chronic urinary retention Neurogenic bladder Vitamin A deficiency Kidney stones Family history of MS (multiple sclerosis) Hyponatremia Muscle spasm Bedbound Anxiety Depression Bilateral knee pain Polyneuropathy Fatigue Multiple sclerosis delivery delivered History of multiple sclerosis Morbid obesity MDRO (multiple drug resistant organisms) resistance Lymphedema Type II diabetes mellitus Home Medications ?Medication ?Instructions ?Recorded ?Last Taken ?Type levothyroxine 50 mcg tablet 50 mcg PO DAILY thyroid 12/21/19 12/02/21 History (Synthroid) duloxetine 60 mg capsule,delayed 60 mg PO BID unsure #180 caps 06/30/21 12/02/21 Rx release atorvastatin 80 mg tablet 80 mg PO DAILY cholesterol 12/03/21 12/02/21 History esomeprazole magnesium 40 mg 40 mg PO DAILY stomach 12/03/21 12/02/21 History capsule,delayed release furosemide 40 mg tablet 80 mg PO BREAKFAST fluid 12/03/21 12/02/21 History metformin 1,000 mg tablet 1,000 mg PO BID DM 12/03/21 12/02/21 History oxycodone-acetaminophen 5 mg-325 1 tab PO TID PRN MS 12/03/21 12/03/21 History mg tablet semaglutide 1 mg/dose (4 mg/3 mL) 1 mg subcut QWEEK dm 12/03/21 08/29/22 History subcutaneous pen injector (Ozempic) buspirone 5 mg tablet 5 mg PO BID pt unsure #60 tabs 02/04/22 Unknown Rx ondansetron 4 mg disintegrating 4 mg PO Q4H PRN PRN Nausea #10 tabs 06/09/22 Unknown Rx tablet midodrine 10 mg tablet 10 mg PO BID Check with primary 08/11/22 Unknown History doctor insulin degludec 200 unit/mL (3 20 unit (0.1 mL) subcut QHS dm #9 09/11/22 12/02/21 Rx mL) subcutaneous pen (Tresiba mL FlexTouch U-200 insulin) levofloxacin 250 mg tablet 250 mg PO DAILY@0600 #5 tabs 09/11/22 Unknown Rx acetaminophen 650 mg 650 mg PO Q12H 02/09/23 Unknown History tablet,extended release (Tylenol Arthritis Pain) baclofen 10 mg tablet 10 mg PO BID 02/09/23 Unknown History baclofen 10 mg tablet 10 mg PO DAILY PRN Muscle Spasm 02/09/23 Unknown History ferrous sulfate 325 mg (65 mg 325 mg PO DAILY 02/09/23 Unknown History iron) tablet (FeroSul) glimepiride 4 mg tablet 4 mg PO BID 02/09/23 Unknown History lorazepam 0.5 mg tablet (Ativan) 0.5 mg PO DAILY PRN 02/09/23 Unknown History sennosides 8.6 mg tablet (Senna 8.6 mg PO DAILY PRN 02/09/23 Unknown History Lax) ocrelizumab 30 mg/mL intravenous See Rx Instructions .Route 12/26/23 Unknown Rx solution (Ocrevus) .COMPLEX #10 mL Allergy/AdvReac Type Severity Reaction Status Date / Time ampicillin (From Unasyn) Allergy Severe Rash Verified 01/07/24 13:05 sulbactam (From Unasyn) Allergy Severe Rash Verified 01/07/24 13:05 ciprofloxacin (From Cipro) Allergy Hives Verified 01/07/24 13:05 ciprofloxacin HCl (From Allergy Hives Verified 01/07/24 13:05 Cipro) clindamycin HCl (From Allergy Hives Verified 02/09/23 08:49 Cleocin) clindamycin palmitate HCl Allergy Hives Verified 01/07/24 13:05 (From Cleocin) clindamycin phosphate (From Allergy Hives Verified 01/07/24 13:05 Cleocin) morphine Allergy Hives Verified 01/07/24 13:05 sulfamethoxazole (From Allergy Hives Verified 01/07/24 13:05 Bactrim) trimethoprim (From Bactrim) Allergy Hives Verified 01/07/24 13:05 hydromorphone HCl (From AdvReac messes Verified 01/07/24 13:05 Dilaudid) with my brain Family History Unknown Multiple sclerosis 1st cousin Father Cancer continuous mining machine coal miner, black lung, Lung CA. Mother Heart disease Diabetes Heart failure Surgical History H/O hernia repair History of cholecystectomy Social History household members: spouse Smoking Status: Never smoker alcohol intake: never substance use type: does not use ROS ROS Narrative As per HPI, otherwise noncontributory. Physical Exam Const alert and no apparent distress General Appearance: cooperative, well kempt and well developed Orientation / Consciousness: awake, oriented to person and oriented to place HEENT normocephalic, head/scalp atraumatic and moist oral mucous membranes Eyes PERRL, EOMs intact bilaterally and conjunctivae normal Neck supple, no JVD and thyroid normal General: trachea midline Resp normal respiratory effort, no retractions, no use of accessory muscles and clear to auscultation bilaterally Auscultation: Negative for rales, rhonchi or wheezes Cardio regular rate, regular rhythm, S1 normal heart sound, S2 normal heart sound, no murmurs, no rub and no gallops GI normal to inspection, nondistended, normoactive bowel sounds, soft to palpation, non-tender and non-distended Extremity Extremity Narrative: There is generalized edema noted over both lower legs Skin no rashes or lesions noted General Skin Exam: no breakdown Neuro CN's II-XII intact bilaterally and no sensory deficits noted Neuro Narrative: Patient has paraplegia Sensorium / Orientation: awake, alert, oriented to person and oriented to place Speech: speech normal Psych affect normal Lab / Micro Data 01/11/24 04:00 01/11/24 04:00 Labs: Laboratory Results - last 24 hr 01/10/24 17:33: POC Glucose 151 H 01/11/24 04:00: WBC 17.5 H, RBC 3.21 L, Hgb 9.8 L, Hct 29.1 L, MCV 90.7, MCH 30.5, MCHC 33.7, RDW Std Deviation 47.8 H, RDW Coeff of Mele 14.6, Plt Count 329, MPV 9.4, Immature Gran % (Auto) 2.600 H, Neut % (Auto) 88.4 H, Lymph % (Auto) 3.5 L, [place] % (Auto) 4.6, Eos % (Auto) 0.4, Baso % (Auto) 0.5, Absolute Neuts (auto) 15.5 H, Absolute Lymphs (auto) 0.61 L, Nucleated RBC % 0, Sodium 139, Potassium 3.5, Chloride 110 H, Carbon Dioxide 15.0 L, Anion Gap 13, BUN 73 H, C reatinine 2.63 H, Estim Creat Clear Calc 21.00, Est GFR (MDRD) Af Amer 24 L, Est GFR (MDRD) Non-Af 20 L, BUN/Creatinine Ratio 27.8 H, Glucose 190 H, Calcium 7.7 L, Total Bilirubin 0.40, AST 6 L, ALT 8 L, Alkaline Phosphatase 88, Total Protein 5.8 L, Albumin 1.8 L, Globulin 4.0, Albumin/Globulin Ratio 0.4 L, Random Vancomycin 22.3 H 01/11/24 06:17: POC Glucose 156 H 01/11/24 11:36: POC Glucose 168 H 01/11/24 16:41: POC Glucose 156 H Micro: Microbiology 01/09/24 07:07 Sputum, Induced/Lukens Gram Stain - Final 01/09/24 07:07 Sputum, Induced/Lukens Respiratory Culture - Final Meth. resistant Staph. aureus 01/07/24 23:45 Wound - Buttock Gram Stain - Final 01/07/24 23:45 Wound - Buttock Wound Culture - Preliminary Gram negative alfie Providencia rettgeri Proteus mirabilis Morganella morganii sp morgani GPC Poss Enterococcus sp Assessment & Plan Assessment/Plan (1) Septic shock: PLAN: Plan 63-year-old with septic shock possibly due to UTI/multiple decubitus ulcers with concern for infection: Patient is being managed in the PCU. She also has oropharyngeal and esophageal dysphagia which is very common complication of end- stage multiple sclerosis.. Diffuse?esophageal?spasm (HELLEN) and achalasia are both disorders of?esophageal?peristalsis which cause clinical?symptoms of dysphagia. From a therapeutic standpoint she could undergo the dilation and possible Botox treatment to her esophagus in order to help her esophageal dysphagia. This would not help her oropharyngeal dysphagia. If that was not successful then she would have to get a PEG tube for nutrition purposes. I do not know if she is going to on hospice or she will be comfort care and she can eat. I do not think her family wants her to have a PEG tube at this time. Therefore only option would be to hopefully dilate her esophagus or perform Botox therapy. Keep her n.p.o. past midnight. Likely EGD tomorrow. Charges/Coding Visit Charges Inpatient E&M: 60921 Init Hosp L3
--- NOTE | 2024-01-11 17:56 | PN.RENAL_ITS ---
Subjective Subjective Following for EDWINA. The patient was liberated from ventilator on 01/10/2024. The patient is much more awake/alert today compared to the weekend. She denies chest pain, dyspnea, or nausea. Appetite still marginal. Objective Data Objective Data Vital Signs: Vital Signs Temp Pulse Resp BP Pulse Ox O2 Del Method FiO2 98.2 F 101 H 16 113/64 100 Room Air 21 01/11/24 14:17 01/11/24 14:17 01/11/24 14:17 01/11/24 14:17 01/11/24 14:17 01/11/24 14:17 01/10/24 10:00 Oxygen Delivery Method Room Air Weight: 79.7 kg Body Mass Index (BMI) 35.4 Intake & Output: Intake and Output for Last 24 Hours 01/09/24 01/10/24 01/11/24 23:59 23:59 23:59 Intake Total 2583.65 / 2646.65 2304.48 / 2313.88 365.38 / 365.38 Output Total 625 / 800 695 / 895 850 / 850 Balance 1958.65 / 1846.65 1609.48 / 1418.88 -484.62 / -484.62 Lab / Micro Data 01/11/24 04:00 01/11/24 04:00 Labs: Laboratory Results - last 24 hr 01/11/24 04:00: WBC 17.5 H, RBC 3.21 L, Hgb 9.8 L, Hct 29.1 L, MCV 90.7, MCH 30.5, MCHC 33.7, RDW Std Deviation 47.8 H, RDW Coeff of Mele 14.6, Plt Count 329, MPV 9.4, Immature Gran % (Auto) 2.600 H, Neut % (Auto) 88.4 H, Lymph % (Auto) 3.5 L, [place] % (Auto) 4.6, Eos % (Auto) 0.4, Baso % (Auto) 0.5, Absolute Neuts (auto) 15.5 H, Absolute Lymphs (auto) 0.61 L, Nucleated RBC % 0, Sodium 139, Potassium 3.5, Chloride 110 H, Carbon Dioxide 15.0 L, Anion Gap 13, BUN 73 H, C reatinine 2.63 H, Estim Creat Clear Calc 21.00, Est GFR (MDRD) Af Amer 24 L, Est GFR (MDRD) Non-Af 20 L, BUN/Creatinine Ratio 27.8 H, Glucose 190 H, Calcium 7.7 L, Total Bilirubin 0.40, AST 6 L, ALT 8 L, Alkaline Phosphatase 88, Total Protein 5.8 L, Albumin 1.8 L, Globulin 4.0, Albumin/Globulin Ratio 0.4 L, Random Vancomycin 22.3 H 01/11/24 06:17: POC Glucose 156 H 01/11/24 11:36: POC Glucose 168 H 01/11/24 16:41: POC Glucose 156 H Micro: Microbiology 01/09/24 07:07 Sputum, Induced/Lukens Gram Stain - Final 01/09/24 07:07 Sputum, Induced/Lukens Respiratory Culture - Final Meth. resistant Staph. aureus 01/07/24 23:45 Wound - Buttock Gram Stain - Final 01/07/24 23:45 Wound - Buttock Wound Culture - Preliminary Gram negative alfie Providencia rettgeri Proteus mirabilis Morganella morganii sp morgani GPC Poss Enterococcus sp 01/07/24 15:44 Urine, Catheterized Urine Culture - Final Citrobacter freundii Providencia rettgeri Serratia fonticola 01/07/24 14:35 Blood Culture (Wb) - Right Forearm Blood Culture - Preliminary No growth in 48 hours. Physical Exam Narrative General: Ill-appearing, sedated on ventilator. HEENT: Normocephalic, atraumatic. Neck: Supple, no JVD. Heart: Normal S1, S2. No rubs, murmurs or gallops. Lungs: Clear to auscultation anteriorly. Abdomen: Normal bowel sounds, soft, nontender, no guarding or rebound. Extremities: There is 2+ edema of the lower extremity bilaterally. No guarding or rebound. Neurologic: No focal neurologic deficit. Assessment & Plan Assessment/Plan (1) EDWINA (acute kidney injury): (2) Chronic kidney disease, stage 3a: (3) Acute metabolic acidosis: (4) Kidney stones: PLAN: Plan Impression/Plan: The patient is a 63-year-old female with past history of multiple sclerosis complicated by urinary retention requiring chronic Valenzulea catheter, hypothyroidism, GERD, generalized anxiety disorder, and major depressive disorder. The patient presented to hospital on 01/07/2024 with altered mental status. She was also found to be hypotensive with systolic blood pressure less than 100 mmHg. The patient is being treated for septic shock due to either UTI and/or infected decubitus ulcers. Nephrology is following for EDWINA on CKD. Acute kidney injury on chronic kidney disease stage G3a. Last available serum creatinine from August 2022 was 1.22 mg/dL. Thus far, serum creatinine has peaked at 3.46 mg/dL on 01/07/2024. Serum creatinine is better today at 2.63 mg/dL on 01/11/2024. Urine output appears to be picking up as well. EDWINA is likely due to ischemic ATN from septic shock. The patient is off of vasopressor. She has been hemodynamically stable in the past 24 hours. Keep MAP above 65 mmHg. She is now off of maintenance IV fluid, so I encouraged her to push oral intake on her own. There is no need for kidney replacement therapy since renal function is improving. Will continue to monitor renal function, volume status, acid-base and electrolytes. Acute metabolic acidosis. Bicarbonate level was 11 mmol/L on 01/09/2024. pH was 7.17 on 01/09/2024 on VBG. Therefore, I agree with initiation of sodium bicarbonate infusion. The patient is now off of sodium bicarbonate infusion. Serum bicarbonate level is down to 15 mmol/L today from 18 mmol/L on 01/10/2024. Recheck serum bicarbonate level tomorrow. Nephrolithiasis. Patient has bilateral staghorn calcification/nephrolithiasis. She also has bilateral ureteral stents. Unclear when the stents were placed. There is bilateral pelviectasia of both kidneys with mild left hydronephrosis. May benefit from removal/exchange of ureteral stents. I will defer to primary service and ID for decision. Septic shock secondary to complicated UTI versus soft tissue infection. Improving. Patient is off IV vasopressor. She has been transferred to PCU. Antimicrobial coverage as per primary service and ID.
--- NOTE | 2024-01-11 19:55 | PCM.CONS.GEN ---
Assessment & Plan Assessment/Plan (1) Septic shock: (2) Neurogenic bladder: PLAN: This has been managed with chronic urethral Valenzuela catheter At some point I do believe there were plans for suprapubic tube placement, there is no plan for this at the present time. (3) Multiple sclerosis: (4) Type II diabetes mellitus: (5) Kidney stones: PLAN: Her stones are bilateral and staghorn in size. I would not recommend changing her ureteral stents at this time as I believe they do appear to be somewhat calcified on imaging. The patient cannot recall when they were last changed or even placed. Calcified stents can be very difficult to remove requiring multiple procedures including lithotripsy. There is no plan for stent change during this admission (6) Acute on chronic urinary retention: PLAN: Continue chronic urethral Valenzuela catheter and catheter care PLAN: Plan There should be a discussion with family and patient to determine the long-term plans for her urologic care. Apparently she was recently in hospice with no plans on further management for her stones. She does not know what the plan will be moving forward. Until that decision is made, the plan will be to continue her Valenzuela catheter and the current indwelling ureteral stents. HPI Consult Data Date of Consult: 01/11/24 HPI Narrative Reason for Consultation: Staghorn kidney stones bilaterally with indwelling ureteral stents, sepsis HPI Narrative: MARIA D SMITH, is a 63 F who presented to the hospital with mental status changes and was found to be hypotensive. She was recently extubated and transferred down to the PCU. I have been consulted for potential change of her indwelling ureteral stents. I have seen the patient in the past, most recently she was being cared for by another urologist which she cannot recall which institution they were located at. She was supposed to have management of her stones as well as have a suprapubic tube inserted. She reports that she did not do it because she just forgot. She most recently was home on hospice and was taken off of hospice for presentation to the hospital. She is not sure what the plan will be for her. I did briefly speak to her on the phone and he cannot recall her urologist or plan either. [facility] Medical History Diabetes Current use of insulin Hoarseness Acute on chronic urinary retention Neurogenic bladder Vitamin A deficiency Kidney stones Family history of MS (multiple sclerosis) Hyponatremia Muscle spasm Bedbound Anxiety Depression Bilateral knee pain Polyneuropathy Fatigue Multiple sclerosis delivery delivered History of multiple sclerosis Morbid obesity MDRO (multiple drug resistant organisms) resistance Lymphedema Type II diabetes mellitus Home Medications ?Medication ?Instructions ?Recorded ?Last Taken ?Type levothyroxine 50 mcg tablet 50 mcg PO DAILY thyroid 12/21/19 12/02/21 History (Synthroid) duloxetine 60 mg capsule,delayed 60 mg PO BID unsure #180 caps 06/30/21 12/02/21 Rx release atorvastatin 80 mg tablet 80 mg PO DAILY cholesterol 12/03/21 12/02/21 History esomeprazole magnesium 40 mg 40 mg PO DAILY stomach 12/03/21 12/02/21 History capsule,delayed release furosemide 40 mg tablet 80 mg PO BREAKFAST fluid 12/03/21 12/02/21 History metformin 1,000 mg tablet 1,000 mg PO BID DM 12/03/21 12/02/21 History oxycodone-acetaminophen 5 mg-325 1 tab PO TID PRN MS 12/03/21 12/03/21 History mg tablet semaglutide 1 mg/dose (4 mg/3 mL) 1 mg subcut QWEEK dm 12/03/21 08/29/22 History subcutaneous pen injector (Ozempic) buspirone 5 mg tablet 5 mg PO BID pt unsure #60 tabs 02/04/22 Unknown Rx ondansetron 4 mg disintegrating 4 mg PO Q4H PRN PRN Nausea #10 tabs 06/09/22 Unknown Rx tablet midodrine 10 mg tablet 10 mg PO BID Check with primary 08/11/22 Unknown History doctor insulin degludec 200 unit/mL (3 20 unit (0.1 mL) subcut QHS dm #9 09/11/22 12/02/21 Rx mL) subcutaneous pen (Tresiba mL FlexTouch U-200 insulin) levofloxacin 250 mg tablet 250 mg PO DAILY@0600 #5 tabs 09/11/22 Unknown Rx acetaminophen 650 mg 650 mg PO Q12H 02/09/23 Unknown History tablet,extended release (Tylenol Arthritis Pain) baclofen 10 mg tablet 10 mg PO BID 02/09/23 Unknown History baclofen 10 mg tablet 10 mg PO DAILY PRN Muscle Spasm 02/09/23 Unknown History ferrous sulfate 325 mg (65 mg 325 mg PO DAILY 02/09/23 Unknown History iron) tablet (FeroSul) glimepiride 4 mg tablet 4 mg PO BID 02/09/23 Unknown History lorazepam 0.5 mg tablet (Ativan) 0.5 mg PO DAILY PRN 02/09/23 Unknown History sennosides 8.6 mg tablet (Senna 8.6 mg PO DAILY PRN 02/09/23 Unknown History Lax) ocrelizumab 30 mg/mL intravenous See Rx Instructions .Route 12/26/23 Unknown Rx solution (Ocrevus) .COMPLEX #10 mL Allergy/AdvReac Type Severity Reaction Status Date / Time ampicillin (From Unasyn) Allergy Severe Rash Verified 01/07/24 13:05 sulbactam (From Unasyn) Allergy Severe Rash Verified 01/07/24 13:05 ciprofloxacin (From Cipro) Allergy Hives Verified 01/07/24 13:05 ciprofloxacin HCl (From Allergy Hives Verified 01/07/24 13:05 Cipro) clindamycin HCl (From Allergy Hives Verified 02/09/23 08:49 Cleocin) clindamycin palmitate HCl Allergy Hives Verified 01/07/24 13:05 (From Cleocin) clindamycin phosphate (From Allergy Hives Verified 01/07/24 13:05 Cleocin) morphine Allergy Hives Verified 01/07/24 13:05 sulfamethoxazole (From Allergy Hives Verified 01/07/24 13:05 Bactrim) trimethoprim (From Bactrim) Allergy Hives Verified 01/07/24 13:05 hydromorphone HCl (From AdvReac messes Verified 01/07/24 13:05 Dilaudid) with my brain Family History Unknown Multiple sclerosis 1st cousin Father Cancer hydraulic miner blasting, black lung, Lung CA. Mother Heart disease Diabetes Heart failure Surgical History H/O hernia repair History of cholecystectomy Social History household members: spouse Smoking Status: Never smoker alcohol intake: never substance use type: does not use ROS Review of Systems ROS Unobtainable: due to mental status Constitutional Constitutional: Reports other Details: She is mainly reporting that she cannot remember things including difficulty with using her cell phone. I did help her call her . Eyes Eyes: Reports systems reviewed and no addt'l complaints, except as documented ENT HEENT: Reports systems reviewed and no addt'l complaints, except as documented Cardiovascular Cardiovascular: Denies abdominal pain or chest pain Respiratory/Chest Respiratory/Chest: Reports systems reviewed and no addt'l complaints, except as documented Gastrointestinal Gastrointestinal: Denies abdominal pain or nausea Genitourinary Genitourinary: Reports other Details: Indwelling chronic Valenzuela catheter ; Denies flank pain Musculoskeletal Musculoskeletal: Reports muscle weakness and numbness Integumentary Integumentary: Reports wounds Neurologic Neurologic: Reports memory loss and other Details: Longstanding MS with decreased mobility and sensation Psychiatric Psychiatric: Reports systems reviewed and no addt'l complaints, except as documented Endocrine Endocrinology: Reports systems reviewed and no addt'l complaints, except as documented Hematologic/Lymphatic Hematologic/Lymphatic: Reports systems reviewed and no addt'l complaints, except as documented Allergic/Immunologic Allergic/Immunologic: Reports systems reviewed and no addt'l complaints, except as documented Physical Exam Const alert, oriented x3 and no apparent distress General Appearance: cooperative HEENT normocephalic, head/scalp atraumatic, hearing grossly normal bilaterally, external ears normal and external nose normal Eyes General Eye: normal appearance of both eyes Neck General: normal visual inspection and trachea midline Chest inspection of chest normal Chest: symmetrical chest wall rise Resp normal respiratory effort, normal air movement and no retractions Cardio regular rate GI soft to palpation and non-tender Narrative: Urine in Valenzuela catheter is grossly purulent Bladder / Kidney Exam: catheter in place Skin no jaundice, no petechiae and no mottling Neuro oriented x3 and CN's II-XII intact bilaterally Psych mental status grossly normal Lab / Micro Data 01/11/24 04:00 01/11/24 04:00 Labs: Laboratory Results - last 24 hr 01/11/24 04:00: WBC 17.5 H, RBC 3.21 L, Hgb 9.8 L, Hct 29.1 L, MCV 90.7, MCH 30.5, MCHC 33.7, RDW Std Deviation 47.8 H, RDW Coeff of Mele 14.6, Plt Count 329, MPV 9.4, Immature Gran % (Auto) 2.600 H, Neut % (Auto) 88.4 H, Lymph % (Auto) 3.5 L, Person % (Auto) 4.6, Eos % (Auto) 0.4, Baso % (Auto) 0.5, Absolute Neuts (auto) 15.5 H, Absolute Lymphs (auto) 0.61 L, Nucleated RBC % 0, Sodium 139, Potassium 3.5, Chloride 110 H, Carbon Dioxide 15.0 L, Anion Gap 13, BUN 73 H, Creatinine 2.63 H, Estim Creat Clear Calc 21.00, Est GFR (MDRD) Af Amer 24 L, Est GFR (MDRD) Non-Af 20 L, BUN/Creatinine Ratio 27.8 H, Glucose 190 H, Calcium 7.7 L, Total Bilirubin 0.40, AST 6 L, ALT 8 L, Alkaline Phosphatase 88, Total Protein 5.8 L, Albumin 1.8 L, Globulin 4.0, Albumin/Globulin Ratio 0.4 L, Random Vancomycin 22.3 H 01/11/24 06:17: POC Glucose 156 H 01/11/24 11:36: POC Glucose 168 H 01/11/24 16:41: POC Glucose 156 H Micro: Microbiology 01/09/24 07:07 Sputum, Induced/Lukens Gram Stain - Final 01/09/24 07:07 Sputum, Induced/Lukens Respiratory Culture - Final Meth. resistant Staph. aureus 01/07/24 23:45 Wound - Buttock Gram Stain - Final 01/07/24 23:45 Wound - Buttock Wound Culture - Preliminary Gram negative alfie Providencia rettgeri Proteus mirabilis Morganella morganii sp morgani GPC Poss Enterococcus sp
[2024-01-11] MEDS: oxyCODONE 5 MG Tablet PO (20:44)
[2024-01-11] MEDS: Acetaminophen 500 MG Tablet 1000 MG PO (20:44)
[2024-01-11] MEDS: MELATONIN 3 MG TABLET PO (20:44)
[2024-01-11 21:42] LABS: Bedside Glucose 170 mg/dL (74-106)
[2024-01-12] VITALS (7 sets, daily range): BP systolic 95–145; BP diastolic 56–87; PULSE 78–95; RESP 16–20; TEMP 36.5–36.7; O2SAT 96–100; BMI 37.8
[2024-01-12] MEDS: Acetaminophen 500 MG Tablet 1000 MG PO ×2 (05:06→22:32)
[2024-01-12] MEDS: Heparin Injection (Vial) 5,000 UNIT/ML VIAL 5000 UNIT SC ×3 (05:06→22:33)
[2024-01-12] MEDS: oxyCODONE 5 MG Tablet PO (05:10)
[2024-01-12 06:25] LABS: Absolute Lymphocyte Count 0.64 X10^3/uL (0.83-4.51); Absolute Neutrophil Count 8.9 X10^3/uL (2.0-7.7); Basophil# 0.08 X10^3/uL; Basophil% 0.7 % (0-1); Eosinophil# 0.09 X10^3/uL; Eosinophils% 0.8 % (0-5); Hematocrit 31.5 % (37-47); Lymphocyte # 0.64 X10^3/ul (0.83-4.51); Lymphocyte % 5.9 % (19-41); Mean Corp Hgb Conc 31.7 g/dL (32-36); Mean Corpuscular Hgb 29.7 pg (27.0-32.0); Mean Corpuscular Volume 93.5 fL (81-99); Mean Platelet Vol. 9.6 fl (6.2-12.0); Monocyte# 0.66 X10^3/uL; Monocyte% 6.1 % (0-10); NRBC Flagged by Analyzer 0 % (0-5); Neutrophil # 8.86 X10^3/uL (2.7-7.7); Neutrophil % 82.1 % (47-70); Platelet Count 272 K/mm3 (150-450); RBC Distribution Width CV 15.1 % (11.6-14.6); Red Blood Count 3.37 M/mm3 (4.2-5.4); White Blood Count 10.8 K/mm3 (4.4-11.0)
[2024-01-12] MEDS: Insulin Lispro 100 UNIT/ML INSULN.PEN SC (06:33)
[2024-01-12 06:52] LABS: Bedside Glucose 153 mg/dL (74-106)
[2024-01-12 07:01] LABS: Anion Gap 7 (5-15); BUN 68 mg/dL (7-18); BUN/Creat Ratio 26.3 RATIO (10-20); Calcium,Total 7.6 mg/dL (8.5-10.1); Chloride 112 mmol/L (98-107); Creatinine, Serum 2.59 mg/dL (0.55-1.02); EST Glomerular Filtration Rate 20 mL/min (>60); Est Glom Filt Rate - Afr Amer 24 mL/min (>60); Estimated Creatinine Clearance 22.06 ml/min; Glucose 169 mg/dL (74-106); Potassium 3.4 mmol/L (3.5-5.1); Sodium Level 137 mmol/L (136-145)
--- NOTE | 2024-01-12 09:50 | CASEMGMT ---
SW went to patient's room. Patient was on the phone with her Jm. Patient put Jm on speaker phone. SW explained that SW has been talking with patient and patient feels she needs to be somewhere where she can have more direct care. [facility] mentioned [facility] Jm said if that is what patient wants then that is fine. JANELL also explained that [facility] may not go to the local nursing homes. Jm is okay with [facility] or another Hospice as long as,They don't try and kill her. JANELL will work on a referral. At this time patient is declining a list of SNF's unless [facility] cannot take patient. JANELL asked Hanh to please send a referral to [facility]. JANELL will also talk with patient's son Steven as he is patient's Healthcare POA. Adriana BURIRS
[2024-01-12] MEDS: DAKIN'S SOL HALF STRENGTH (=0.25%) TOPICAL (10:17)
[2024-01-12] MEDS: Juven (unflavored) Packet 1 PACKET PO (10:17)
[2024-01-12] MEDS: Pantoprazole Sodium 40 MG in 0.9% Normal Saline (100mL MB+) 100 ML 330 MG IV ×2 (10:18→22:33)
[2024-01-12] MEDS: Cefepime HCl 2 GM in 0.9% Normal Saline (100mL MB+) 100 ML IV (11:01)
[2024-01-12 11:23] LABS: Bedside Glucose 153 mg/dL (74-106)
--- NOTE | 2024-01-12 11:27 | CASEMGMT ---
Addendum entered by Hanh Iqbal 01/12/24 11:43: Appt with [facility] scheduled for this afternoon. JANELL updated. Hanh Iqbal DC Planning Asst. Original Note: Discharge Planning Referral sent to [facility] with acceptance. They will make referral to [facility] and follow up with date/time. JANELL updated. Hanh Iqbal DC Planning Asst.
[2024-01-12] MEDS: 0.9% Saline Lock 10 ML Syringe IV ×2 (12:00→22:31)
--- NOTE | 2024-01-12 12:10 | CASEMGMT ---
SW called patient's son Steven. Introduced self and role at [facility]. JANELL told Steven that SW has been talking with patient the last couple days. Patient has stated she feels she needs to go somewhere where she can get more direct care. Patient expressed interest in [facility] so a referral was made and they can take her. Patient would still be on Hospice. Steven said this is the first that he has heard this. Steven said that is not what patient is telling him. Steven asked that we not move forward with anything yet. He will be in to [facility] soon and can talk with patient. Adriana Callaway [employer] [place]
--- NOTE | 2024-01-12 13:30 | PCM.PN.ID ---
Physical Exam Narrative Feeling better, no fever, no abd pain Const alert and no apparent distress Resp normal air movement and clear to auscultation bilaterally Cardio regular rate and regular rhythm GI soft to palpation, non-tender and non-distended Skin Skin Narrative: wounds bandaged ID ID: Route of nutrition/ use of supplements: [] Nutritional Intake: [] IV Site: [] Valenzuela Catheter: [] Assessment & Plan Assessment/Plan (1) Septic shock: PLAN: Sputum with MRSA. Ucx with citro, providencia, serratia. Wound cx with Pseudomonas putida, providencia, prot, morganella, e faecalis. On vanc/cefepime, off pressors. EDWINA on CKD improved. No fever. Ok for discharge with hospice on 5 day course po linezolid and omnicef. Will follow (2) Chronic kidney disease, stage 3a:
--- NOTE | 2024-01-12 13:43 | CASEMGMT ---
JANELL met with patient, her son Steven, and daughter in law Allison. JANELL introduced self and role at [facility]. SW explained that SW has been talking with patient. Patient mentioned going to [facility] for more direct care to help with the management of her wounds. Steven said that is not what she told me just now. Patient then said, I will go to [facility] if I have to go somewhere, but I want to go home. Steven said the end result is patient wants to go home. JANELL explained it was thought it would be best if patient went to a facility to help get her wounds under better control and then go home. Steven said that it is always an issue when it comes time for the patient to leave the skilled nursing. The skilled nursing won't let the patient leave without fighting them. Steven said he would rather not go through that. Steven told patient that if she wants to go to a facility that is fine, but he would rather she come home. Patient's daughter in law said she has been caring for the patient for only a couple of weeks. She said hospice was teaching her to do the dressing changes. SW asked patient what she wants to do. Patient again said if she has to go somewhere she will go to [facility], but if she can go home she wants to go home. Steven said, I would rather you come home. Patient was in agreement. SW let them know SW will cancel the referral to [facility]. SW canceled the referral to [facility]. SW also notified the physician and RN. Plan: d/c home with resumption of [facility]. JANELL will also call Adult Protective Services. Adriana BURRIS
--- NOTE | 2024-01-12 13:58 | WOUNDNOTE ---
In to talk with patient, son, and daughter in law. son states the daughter in law assists with the wound care at home on the days that Hospice does not come in. family aware dressings need changed at least once a day. the periwound was very denuded on admission most likely from dressings being wet and not changed more than twice weekly. daughter in law coming in tomorrow to watch this nurse change dressings so she can assist at home. patient was agreeable to go to a nurisng home, but now plans to go home with family assistance.
[2024-01-12] MEDS: Menthol/Lanolin/Calamine/Znox 113 GM Tube 1 APPLIC TOPICAL ×2 (15:12→22:31)
[2024-01-12 16:47] LABS: Bedside Glucose 138 mg/dL (74-106)
--- NOTE | 2024-01-12 16:52 | PCM.PN.HOSP ---
Reason for Visit Reason for Visit: Diagnoses Sepsis, unspecified organism (01/07/24) Type 2 diabetes mellitus without complications (01/07/24) Acute metabolic acidosis (01/07/24) Multiple sclerosis (01/07/24) Local infection of the skin and subcutaneous tissue, unspecified (01/07/24) Pressure ulcer of unspecified site, unspecified stage (01/07/24) Acute kidney failure, unspecified (01/07/24) Chronic kidney disease, stage 3a (01/07/24) Calculus of kidney (01/07/24) Neuromuscular dysfunction of bladder, unspecified (01/07/24) Retention of urine, unspecified (01/07/24) Severe sepsis with septic shock (01/07/24) Subjective Subjective Patient was seen and examined today, she had agreed to go to a residential under hospice care today but her son came in and it appears her son has persuaded her to go home instead. Patient's sons girlfriend has agreed to provide some wound care for the patient and home, I had the wound care nurse come down and talk with the son's girlfriend to let her know about dressing changes and wound care. Patient's son's girlfriend will come in tomorrow to observe dressing changes from the wound care nurse. I had a brief talk with gastroenterology today, they do not feel the patient would benefit from undergoing an EGD, it is likely that any difficulty that the patient is having with her swallowing is due to her MS according to gastroenterology. Patient will continue to see speech therapy while in the hospital, when she goes home she will go home with hospice care. Objective Data Objective Data Vital Signs: Vital Signs Temp Pulse Resp BP Pulse Ox O2 Del Method FiO2 97.8 F 83 16 95/56 L 100 Room Air 21 01/12/24 10:20 01/12/24 10:20 01/12/24 10:20 01/12/24 10:20 01/12/24 10:20 01/12/24 12:00 01/10/24 10:00 Oxygen Delivery Method Room Air Weight: 84.9 kg Body Mass Index (BMI) 37.8 Intake & Output: Intake and Output for Last 24 Hours 01/10/24 01/11/24 01/12/24 23:59 23:59 23:59 Intake Total 2304.48 / 2313.88 475.38 / 475.38 260 / 260 Output Total 695 / 895 850 / 1100 375 / 375 Balance 1609.48 / 1418.88 -374.62 / -624.62 -115 / -115 Lab / Micro Data 01/12/24 06:05 01/12/24 06:05 Labs: Laboratory Results - last 24 hr 01/11/24 16:41: POC Glucose 156 H 01/11/24 20:52: POC Glucose 170 H 01/12/24 06:05: WBC 10.8, RBC 3.37 L, Hgb 10.0 L, Hct 31.5 L, MCV 93.5, MCH 29.7, MCHC 31.7 L D, RDW Std Deviation 51.0 H, RDW Coeff of Mele 15.1 H, Plt Count 272, MPV 9.6, Immature Gran % (Auto) 4.400 H, Neut % (Auto) 82.1 H, Lymph % (Auto) 5.9 L, Daniels % (Auto) 6.1, Eos % (Auto) 0.8, Baso % (Auto) 0.7, Absolute Neuts (auto) 8.9 H, Absolute Lymphs (auto) 0.64 L, Nucleated RBC % 0, Sodium 137, Potassium 3.4 L, Chloride 112 H, Carbon Dioxide 17.0 L, Anion Gap 7, BUN 68 H, Creatinine 2.59 H, Estim Creat Clear Calc 22.06, Est GFR (MDRD) Af Amer 24 L, Est GFR (MDRD) Non-Af 20 L, BUN/Creatinine Ratio 26.3 H, Glucose 169 H, Calcium 7.6 L 01/12/24 06:32: POC Glucose 153 H 01/12/24 11:05: POC Glucose 153 H 01/12/24 16:30: POC Glucose 138 H Micro: Microbiology 01/07/24 14:35 Blood Culture (Wb) - Right Forearm Blood Culture - Final No growth in 5 days. 01/07/24 23:45 Wound - Buttock Gram Stain - Final 01/07/24 23:45 Wound - Buttock Wound Culture - Preliminary Pseudomonas putida Providencia rettgeri Proteus mirabilis Morganella morganii sp morgani Enterococcus faecalis 01/09/24 07:07 Sputum, Induced/Lukens Gram Stain - Final 01/09/24 07:07 Sputum, Induced/Lukens Respiratory Culture - Final Meth. resistant Staph. aureus 01/07/24 15:44 Urine, Catheterized Urine Culture - Final Citrobacter freundii Providencia rettgeri Serratia fonticola Physical Exam Narrative alert and no apparent distress General Appearance: cooperative, well kempt and well developed Orientation / Consciousness: awake, oriented to person and oriented to place HEENT normocephalic, head/scalp atraumatic and moist oral mucous membranes Eyes PERRL, EOMs intact bilaterally and conjunctivae normal Neck supple, no JVD and thyroid normal General: trachea midline Resp normal respiratory effort, no retractions, no use of accessory muscles and clear to auscultation bilaterally Auscultation: Negative for rales, rhonchi or wheezes Cardio regular rate, regular rhythm, S1 normal heart sound, S2 normal heart sound, no murmurs, no rub and no gallops GI normal to inspection, nondistended, normoactive bowel sounds, soft to palpation, non-tender and non-distended Extremity Extremity Narrative: There is generalized edema noted over both lower legs Skin Patient has several pressure injury areas to her ischial areas bilaterally and 1 large 1 over her sacrum which is stage IV. There does not appear to be any purulent drainage from the area. Neuro CN's II-XII intact bilaterally and no sensory deficits noted Neuro Narrative: Patient has paraplegia Sensorium / Orientation: awake, alert, oriented to person and oriented to place Speech: speech normal Psych affect normal Assessment & Plan Assessment/Plan (1) Septic shock: PLAN: Plan 1. Septic shock-patient currently has Staph aureus growing from her sputum and 3 different bacteria growing in her urine, continue present antibiotic coverage, infectious diseases participating in her care. Infectious diseases states that patient can be given a prescription for cefdinir 300 mg daily and Zyvox 600 mg twice a day for 5 days when she is discharged home. #2 acute cystitis-patient has 3 different bacteria growing from her urine, these bacteria are low numbers however, patient will continue present antibiotics for now, she will be placed on oral antibiotics when she goes home #3 acute hypoxic respiratory [id number] is currently on room air #4 MS-complicates care, management, recovery, and prognosis #5 type 2 diabetes-patient's blood sugars will be monitored, sliding scale insulin will be administered as needed #6 chronic pain-patient is currently on IV fentanyl as needed Patient is currently n.p.o. per speech therapy, they will see the patient today to reevaluate her for oral intake. Total clinical time spent by myself addressing the patient's medical issues, reviewing all of her data, and collaborating with patient's care team: 35 minutes Charges/Coding Visit Charges Inpatient E&M: 10946 Subs Hosp L2
--- NOTE | 2024-01-12 22:03 | PCM.PN.REN ---
Subjective Subjective no new events Objective Data Objective Data Vital Signs: Vital Signs Temp Pulse Resp BP Pulse Ox O2 Del Method FiO2 97.7 F L 78 16 145/87 H 96 Room Air 21 01/12/24 17:23 01/12/24 17:23 01/12/24 17:23 01/12/24 17:23 01/12/24 17:23 01/12/24 17:23 01/10/24 10:00 Oxygen Delivery Method Room Air Weight: 84.9 kg Body Mass Index (BMI) 37.8 Intake & Output: Intake and Output for Last 24 Hours 01/10/24 01/11/24 01/12/24 23:59 23:59 23:59 Intake Total 2304.48 / 2313.88 475.38 / 475.38 260 / 260 Output Total 695 / 895 850 / 1100 375 / 375 Balance 1609.48 / 1418.88 -374.62 / -624.62 -115 / -115 Lab / Micro Data 01/12/24 06:05 01/12/24 06:05 Labs: Laboratory Results - last 24 hr 01/12/24 06:05: WBC 10.8, RBC 3.37 L, Hgb 10.0 L, Hct 31.5 L, MCV 93.5, MCH 29.7, MCHC 31.7 L D, RDW Std Deviation 51.0 H, RDW Coeff of Mele 15.1 H, Plt Count 272, MPV 9.6, Immature Gran % (Auto) 4.400 H, Neut % (Auto) 82.1 H, Lymph % (Auto) 5.9 L, Mathews % (Auto) 6.1, Eos % (Auto) 0.8, Baso % (Auto) 0.7, Absolute Neuts (auto) 8.9 H, Absolute Lymphs (auto) 0.64 L, Nucleated RBC % 0, Sodium 137, Potassium 3.4 L, Chloride 112 H, Carbon Dioxide 17.0 L, Anion Gap 7, BUN 68 H, Creatinine 2.59 H, Estim Creat Clear Calc 22.06, Est GFR (MDRD) Af Amer 24 L, Est GFR (MDRD) Non-Af 20 L, BUN/Creatinine Ratio 26.3 H, Glucose 169 H, Calcium 7.6 L 01/12/24 06:32: POC Glucose 153 H 01/12/24 11:05: POC Glucose 153 H 01/12/24 16:30: POC Glucose 138 H Micro: Microbiology 01/07/24 14:35 Blood Culture (Wb) - Right Forearm Blood Culture - Final No growth in 5 days. 01/07/24 23:45 Wound - Buttock Gram Stain - Final 01/07/24 23:45 Wound - Buttock Wound Culture - Preliminary Pseudomonas putida Providencia rettgeri Proteus mirabilis Morganella morganii sp morgani Enterococcus faecalis 01/09/24 07:07 Sputum, Induced/Lukens Gram Stain - Final 01/09/24 07:07 Sputum, Induced/Lukens Respiratory Culture - Final Meth. resistant Staph. aureus 01/07/24 15:44 Urine, Catheterized Urine Culture - Final Citrobacter freundii Providencia rettgeri Serratia fonticola Physical Exam Narrative General: Ill-appearing, sedated on ventilator. HEENT: Normocephalic, atraumatic. Neck: Supple, no JVD. Heart: Normal S1, S2. No rubs, murmurs or gallops. Lungs: Clear to auscultation anteriorly. Abdomen: Normal bowel sounds, soft, nontender, no guarding or rebound. Extremities: There is 2+ edema of the lower extremity bilaterally. No guarding or rebound. Neurologic: No focal neurologic deficit. Assessment & Plan Assessment/Plan (1) EDWINA (acute kidney injury): (2) Chronic kidney disease, stage 3a: (3) Acute metabolic acidosis: (4) Kidney stones: PLAN: Plan Impression/Plan: The patient is a 63-year-old female with past history of multiple sclerosis complicated by urinary retention requiring chronic Valenzuela catheter, hypothyroidism, GERD, generalized anxiety disorder, and major depressive disorder. The patient presented to hospital on 01/07/2024 with altered mental status. She was also found to be hypotensive with systolic blood pressure less than 100 mmHg. The patient is being treated for septic shock due to either UTI and/or infected decubitus ulcers. Nephrology is following for EDWINA on CKD. Acute kidney injury on chronic kidney disease stage G3a. Last available serum creatinine from August 2022 was 1.22 mg/dL. Thus far, serum creatinine has peaked at 3.46 mg/dL on 01/07/2024. Serum creatinine is better today at 2.4. EDWINA is likely due to ischemic ATN from septic shock. Acute metabolic acidosis. better Nephrolithiasis. Patient has bilateral staghorn calcification/nephrolithiasis. She also has bilateral ureteral stents.
[2024-01-12] MEDS: Ondansetron 4 MG/2 ML Vial IV (22:31)
[2024-01-12] MEDS: Nystatin Powder 15gm Bottle 1 APPLIC TOPICAL (23:00)
[2024-01-13 03:00] VITALS: PULSE 70
[2024-01-13 04:19] VITALS: BMI 38.5
[2024-01-13 04:20] VITALS: BP 98/67; PULSE 85; RESP 22; TEMP 36.4; O2SAT 100
[2024-01-13] MEDS: Ondansetron 4 MG/2 ML Vial IV ×2 (05:43→21:01)
[2024-01-13] MEDS: 0.9% Saline Lock 10 ML Syringe IV ×2 (05:43→21:01)
[2024-01-13] MEDS: Acetaminophen 500 MG Tablet 1000 MG PO (05:44)
[2024-01-13] MEDS: Menthol/Lanolin/Calamine/Znox 113 GM Tube 1 APPLIC TOPICAL ×2 (05:45→20:47)
[2024-01-13] MEDS: Heparin Injection (Vial) 5,000 UNIT/ML VIAL 5000 UNIT SC ×3 (05:46→20:46)
[2024-01-13] MEDS: Nystatin Powder 15gm Bottle 1 APPLIC TOPICAL ×3 (06:36→20:47)
[2024-01-13] MEDS: Insulin Lispro 100 UNIT/ML INSULN.PEN SC (06:41)
[2024-01-13 07:02] LABS: Bedside Glucose 160 mg/dL (74-106)
--- NOTE | 2024-01-13 07:43 | PCM.RX.CS ---
Consult Antibiotic Management Pharmacy has been consulted to manage selected antibiotic: Vancomycin Type of Intervention Type of Consult: Follow-up Labs Labs: Sodium 137 mmol/L (136-145) 01/12/24 06:05 Potassium 3.4 mmol/L (3.5-5.1) L 01/12/24 06:05 Chloride 112 mmol/L (98-107) H 01/12/24 06:05 Carbon Dioxide 17.0 mmol/L (21.0-32.0) L 01/12/24 06:05 Anion Gap 7 (5-15) 01/12/24 06:05 BUN 68 mg/dL (7-18) H 01/12/24 06:05 Creatinine 2.59 mg/dL (0.55-1.02) H 01/12/24 06:05 Est GFR (MDRD) Af Amer 24 mL/min (>60) L 01/12/24 06:05 Est GFR (MDRD) Non-Af 20 mL/min (>60) L 01/12/24 06:05 BUN/Creatinine Ratio 26.3 RATIO (10-20) H 01/12/24 06:05 Glucose 169 mg/dL (74-106) H 01/12/24 06:05 Random Vancomycin 18.0 ug/mL (0.0-15.0) H 01/13/24 06:04 Microbiology Microbiology: Microbiology 01/07/24 14:35 Blood Culture (Wb) - Right Forearm Blood Culture - Final No growth in 5 days. 01/07/24 23:45 Wound - Buttock Gram Stain - Final 01/07/24 23:45 Wound - Buttock Wound Culture - Preliminary Pseudomonas putida Providencia rettgeri Proteus mirabilis Morganella morganii sp morgani Enterococcus faecalis 01/09/24 07:07 Sputum, Induced/Lukens Gram Stain - Final 01/09/24 07:07 Sputum, Induced/Lukens Respiratory Culture - Final Meth. resistant Staph. aureus 01/07/24 15:44 Urine, Catheterized Urine Culture - Final Citrobacter freundii Providencia rettgeri Serratia fonticola Goal Trough Goal Trough: 15-20 mcg/mL Pharmacy Plan for Drug Dosing Pharmacy Plan for Drug Dosing: VANCOMYCIN LEVEL RECEIVED Current Vancomycin Dose: ON HOLD- last dose 1250mg IV X1 given 01/08 @0956 Vancomycin Level: 18 Hours Since Last Dose: ~92hr Renal Function: 2.59 (from 01/11) Renal Function Trend: slight improvement, but still elevated Lab/Micro: no new data, Cx (+) MRSA Vancomycin Plan/Comments: patient had a trough drawn which resulted in a value of 18 after a prolonged time between doses. Patient is not currently on HD, per nephrology, has EDWINA. Since it has been almost 4 days since last dose of vancomycin, will dose based on trough values until SCr stabilizes. Will give vancomycin 1000mg IV x1 today and recheck a trough in 2 days to assess dosing at that time. Pending Level: *RANDOM* level 01/15/24 @0600 Pharmacy Service will continue to monitor and adjust dosing as required.
[2024-01-13] MEDS: Vancomycin IV 1,000 MG/200 ML BAG 200 MG IV (09:13)
[2024-01-13 09:18] VITALS: BP 92/56; PULSE 72; RESP 16; TEMP 36.5; O2SAT 100
[2024-01-13] MEDS: oxyCODONE 5 MG Tablet PO ×2 (10:19→14:35)
[2024-01-13] MEDS: Pantoprazole Sodium 40 MG in 0.9% Normal Saline (100mL MB+) 100 ML 330 MG IV ×2 (10:27→20:47)
[2024-01-13] MEDS: Juven (unflavored) Packet 1 PACKET PO ×2 (10:27→16:45)
--- NOTE | 2024-01-13 11:11 | WOUNDNOTE ---
changed dressings with daughter in law, Allison. Allison is aware that dressings need to be changed at least daily and more often if increased drainage. aware that a moisture barrier cream can be applied to the denuded skin periwound. Allison denies questions at this time. pt tolerated fairly well. pt will be discharged home with Hospice care.
--- NOTE | 2024-01-13 11:25 | DCINST_ITS ---
Discharge Instructions Diet Discharge Diet: - (Mechanical soft diet as tolerated) Activity Discharge Activity: Return to Normal Activity Weight Bearing Status: - (Resume previous activity level) Follow Up Care Test Results: Test results from this visit will be discussed in further detail at your follow- up appointment, if applicable. Discharge Plan Admission Admit Date/Time: 01/07/24 19:42 Primary Reason for Your Visit: Septic shock, urinary tract infection, MRSA pneumonia Attending Provider: Edgar Nice Primary Care Provider: YG BUNCH Consulting Providers: Nicolasa Stokes; Elias Grande; Robbie Vicente; Denisse Johns; Aimee Batista Instructions Additional Instructions / Restrictions: Follow-up with hospice as directed Discharge Orders/Prescriptions Prescriptions: New nystatin [Nyamyc] 100,000 unit/gram Powder 1 applic topical TID Qty: 0 0RF Protocol: *Topical Application Instructions APPLICATION INSTRUCTIONS: apply to abd folds oxycodone 5 mg Tablet 5 mg PO Q4H PRN PRN (Reason: Pain Score 4-10) 2 Days Qty: 15 0RF menthol-zinc oxide [Calmoseptine] 0.44-20.6 % Ointment 1 applic topical TID Qty: 0 0RF Protocol: *Topical Application Instructions APPLICATION INSTRUCTIONS: Apply to affected areas Milad (with collagen) 7-7-1.5 gram Powder In Packet 1 packet PO BIDCM Qty: 0 0RF HySept 0.25 % Solution See Protocol topical DAILY Qty: 0 0RF Protocol: *Topical Application Instructions APPLICATION INSTRUCTIONS: to sacral and bilateral ischial wounds linezolid [Zyvox] 600 mg tablet 600 mg PO BID Qty: 10 0RF cefdinir 300 mg capsule 300 mg PO DAILY Qty: 5 0RF Continued levothyroxine [Synthroid] 50 mcg tablet 50 mcg PO DAILY buspirone 5 mg tablet 5 mg PO BID Qty: 60 5RF baclofen 10 mg tablet 10 mg PO BID Rx Instructions: Take one tab BID PO for MS muscle spasms ferrous sulfate [FeroSul] 325 mg (65 mg iron) tablet 325 mg PO DAILY sennosides [Senna Lax] 8.6 mg tablet 8.6 mg PO DAILY PRN Rx Instructions: BID as needed for constipation acetaminophen [Tylenol Arthritis Pain] 650 mg tablet extended release 650 mg PO Q12H atorvastatin 80 mg tablet 80 mg PO DAILY Patient Comments: TAKE 1 TABLET BY MOUTH DAILY esomeprazole magnesium 40 mg capsule,delayed release(DR/EC) 40 mg PO DAILY Patient Comments: TAKE 1 CAPSULE EVERY DAY ondansetron 4 mg tablet,disintegrating 4 mg PO Q4H PRN PRN (Reason: Nausea) Qty: 10 0RF baclofen 10 mg tablet 10 mg PO DAILY PRN (Reason: Muscle Spasm) Rx Instructions: Take 1 tab PRN 1 time daily as needed for muscle spasms PRN duloxetine 60 mg capsule,delayed release(DR/EC) 60 mg PO BID Qty: 180 0RF Changed glimepiride 4 mg tablet 2 mg PO BID Qty: 1 0RF Discontinued lorazepam [Ativan] 0.5 mg tablet 0.5 mg PO DAILY PRN Rx Instructions: Take every 4 hours as needed for Anxiety/restlessness furosemide 40 mg tablet 80 mg PO BREAKFAST Patient Comments: TAKE 2 TABLETS EVERY MORNING oxycodone-acetaminophen 5-325 mg tablet 1 tab PO TID PRN (Reason: MS ) Patient Comments: Take one (1) tablet by mouth three times a day, as needed for multiple sclerosis contractures PALLIATIVE PATIENT metformin 1,000 mg tablet 1,000 mg PO BID Patient Comments: TAKE 1 TABLET TWICE DAILY Ozempic 1 mg/dose (4 mg/3 mL) pen injector 1 mg SUBCUT QWEEK Patient Comments: INJECT 1mg under the skin EVERY week FOR 90 DAYS midodrine 10 mg tablet 10 mg PO BID levofloxacin 250 mg Tablet 250 mg PO DAILY@0600 Qty: 5 0RF insulin degludec [Tresiba FlexTouch U-200] 200 unit/mL (3 mL) insulin pen 20 unit SUBCUT QHS Qty: 9 0RF Patient Comments: Inject 50 units sub-q every night at bedtime. Ocrevus 30 mg/mL solution See Rx Instructions .ROUTE .COMPLEX Qty: 10 1RF Rx Instructions: 300mg (10ml) IV over 4 hours every 2 weeks x 2 doses. Referrals / Follow Up: YG BUNCH GUEST SERVICE REPRESENTATIVE-C [Primary Care Provider] - Disposition Disposition (needs filled in before D/C Order can be placed): Home, Self Care
--- NOTE | 2024-01-13 11:30 | CASEMGMT ---
Physician is going to discharge patient today. JANELL spoke with patient and her daughter in law Allison regarding discharge. Allison said she will be at the home when patient gets home. Allison's phone number is [phone]. JANELL called Physicians to arrange for patient to get picked up this afternoon. JANELL requested 2p, but Physicians asked if 1p would work. JANELL said that is fine. JANELL notified patient and Allison. JANELL called [facility] and spoke with Jolene letting her know patient is being discharged home today and would like to resume services. JANELL also let them know patient will get picked up at 1p. Jolene said Kayley will call JANELL as there are some things that need done to resume services. Await Kayley's phone call. Adriana Callaway [employer] [place]
[2024-01-13] MEDS: Cefepime HCl 2 GM in 0.9% Normal Saline (100mL MB+) 100 ML IV (11:33)
[2024-01-13] MEDS: DAKIN'S SOL HALF STRENGTH (=0.25%) TOPICAL (11:34)
--- NOTE | 2024-01-13 11:41 | PCM.DC.SUM ---
Providers Date of Admission: 01/07/24 Date of Discharge: 01/14/24 Primary Care Physician: LAURA FLORES Consultations 01/07/24 20:26 Consult: Barrel Polisher / Pulmonary Medicine Routine Consulting Provider: Intensivists/Pulmonary Med Reason for Consult: hypotension EMERGENT Consult: No MD Notified: Yes Date Notified: 01/07/24 Time Notified: 22:40 Method of Notification: entered in TIQR Consult: Onc/Wound/ict support technicians Routine Comment: Reason for Consult:: decubitus ulcers 01/08/24 10:07 Consult: Nephrology Routine Consulting Provider: Denisse Johns Reason for Consult: Elevated Creatine EMERGENT Consult: No MD Notified: Yes Date Notified: 01/08/24 Time Notified: 10:07 Method of Notification: Answering Service 01/09/24 09:45 Consult: Infectious Disease Routine Consulting Provider: Robbie Vicenet Reason for Consult: septic shock, UTI?, PNEUMONIA?,DECUBITIS ULCER EMERGENT Consult: No MD Notified: Yes Date Notified: 01/09/24 Time Notified: 09:45 Method of Notification: Text 01/10/24 15:45 Consult: Urology Routine Consulting Provider: Aimee Batista Reason for Consult: Need for ureteral stent replacement EMERGENT Consult: No MD Notified: Yes Date Notified: 01/10/24 Time Notified: 15:46 Method of Notification: Verbal Reason For Visit: HYPOTENSION KIDNEY FAILURE DECUB ULCERS Diagnosis Discharge Diagnosis (1) EDWINA (acute kidney injury): Status: Acute Code(s): N17.9 - Acute kidney failure, unspecified (2) Chronic kidney disease, stage 3a: Status: Chronic Code(s): N18.31 - Chronic kidney disease, stage 3a (3) Acute metabolic acidosis: Status: Acute Code(s): E87.21 - Acute metabolic acidosis (4) Kidney stones: Status: Acute Code(s): N20.0 - Calculus of kidney Plan 1. Septic shock-patient currently has Staph aureus growing from her sputum and 3 different bacteria growing in her urine, continue present antibiotic coverage, infectious diseases participating in her care. Infectious diseases states that patient can be given a prescription for cefdinir 300 mg daily and Zyvox 600 mg twice a day for 5 days when she is discharged home. #2 acute cystitis-patient has 3 different bacteria growing from her urine, these bacteria are low numbers however, patient will continue present antibiotics for now, she will be placed on oral antibiotics when she goes home #3 acute hypoxic respiratory ymdzsmr-jlpuolki-mutmnwt is currently on room air #4 MS-complicates care, management, recovery, and prognosis #5 type 2 diabetes-patient's blood sugars will be monitored, sliding scale insulin will be administered as needed #6 chronic pain-patient is currently on IV fentanyl as needed Patient is currently n.p.o. per speech therapy, they will see the patient today to reevaluate her for oral intake. Total clinical time spent by myself addressing the patient's medical issues, reviewing all of her data, and collaborating with patient's care team: 35 minutes Medications at Discharge Home Medications levothyroxine 50 mcg tablet (Synthroid) 50 mcg PO DAILY thyroid 12/21/19 duloxetine 60 mg capsule,delayed release 60 mg PO BID unsure #180 caps 06/30/21 atorvastatin 80 mg tablet 80 mg PO DAILY cholesterol 12/03/21 esomeprazole magnesium 40 mg capsule,delayed release 40 mg PO DAILY stomach 12/03/21 buspirone 5 mg tablet 5 mg PO BID pt unsure #60 tabs 02/04/22 ondansetron 4 mg disintegrating tablet 4 mg PO Q4H PRN PRN Nausea #10 tabs 06/09/22 acetaminophen 650 mg tablet,extended release (Tylenol Arthritis Pain) 650 mg PO Q12H 02/09/23 baclofen 10 mg tablet 10 mg PO BID 02/09/23 baclofen 10 mg tablet 10 mg PO DAILY PRN Muscle Spasm 02/09/23 ferrous sulfate 325 mg (65 mg iron) tablet (FeroSul) 325 mg PO DAILY 02/09/23 sennosides 8.6 mg tablet (Senna Lax) 8.6 mg PO DAILY PRN 02/09/23 arginine 7 gram-glutam 7 gram-CaHMB 1.5 ekhp-ajdrb-nl-min oral pwd pkt (Milad (with collagen)) 1 packet PO BIDCM #0 ea 01/13/24 cefdinir 300 mg capsule 300 mg PO DAILY #5 caps 01/13/24 glimepiride 4 mg tablet 2 mg (1/2 x 4 mg) PO BID #1 TAB 01/13/24 linezolid 600 mg tablet (Zyvox) 600 mg PO BID #10 tabs 01/13/24 menthol 0.44 %-zinc oxide 20.6 % topical ointment (Calmoseptine) 1 applic topical TID #0 grams 01/13/24 nystatin 100,000 unit/gram topical powder (Nyamyc) 1 applic topical TID #0 grams 01/13/24 oxycodone 5 mg tablet 5 mg PO Q4H PRN PRN Pain Score 4-10 2 days #15 tabs 01/13/24 sodium hypochlorite 0.25 % solution (HySept) See Protocol topical DAILY #0 mL 01/13/24 lorazepam 1 mg tablet 1 mg PO Q4H PRN PRN anxiety 01/14/24 Hospital Course Operations None Procedures Central line placement Summary of Care Provided Minutes Spent on Discharge: 33 Hospital Course: This 63-year-old white female was seen in the emergency room at [facility] after being brought to the hospital at the direction of her son who is her POA. Patient was hospice at her home and he rescinded hospice for the patient to come to the hospital. Patient has a history of multiple sclerosis and is paraplegic, patient was brought in due to confusion and home and uncontrolled pain. Patient also has a history of pressure injuries to her sacral area and ischial areas. Workup in the ER showed the patient have an elevated white blood cell count at 14.1, patient's sodium was slightly low at 132, creatinine was elevated at 3.46 and BUN was 94. UA showed a white blood cell count of over 100, there were no bacteria seen. Brain CT was performed which showed chronic involutional changes of the brain, chest x-ray showed no demonstrated acute cardiopulmonary process. Patient was admitted and placed on IV antibiotics, due to her low blood pressure she was admitted to the ICU and given IV fluids. Critical care saw the patient and consultation. Labs were monitored and her creatinine improved. Patient ultimately was transferred to PCU, conversation was carried out with the patient and she decided to go to an extended care facility under hospice care at the time of discharge from the hospital, however, patient's son who is her POA came in the hospital to talk to the patient and the patient abruptly changed her mind and decided to go home with hospice. Unfortunately her previous hospice provider did not except her back and we had to find another hospice provider for the patient. Patient was seen by wound care while in the hospital, wound care work with the patient's ahkhzeey-zn-wtt to go over wound care when the patient was discharged home as the lurxzmgb-pt-huc was providing wound care for the patient at home. Patient was seen in consultation by nephrology. On 01/13/2024 patient was seen and examined:alert and no apparent distress General Appearance: cooperative, well kempt and well developed Orientation / Consciousness: awake, oriented to person and oriented to place HEENT normocephalic, head/scalp atraumatic and moist oral mucous membranes Eyes PERRL, EOMs intact bilaterally and conjunctivae normal Neck supple, no JVD and thyroid normal General: trachea midline Resp normal respiratory effort, no retractions, no use of accessory muscles and clear to auscultation bilaterally Auscultation: Negative for rales, rhonchi or wheezes Cardio regular rate, regular rhythm, S1 normal heart sound, S2 normal heart sound, no murmurs, no rub and no gallops GI normal to inspection, nondistended, normoactive bowel sounds, soft to palpation, non-tender and non-distended Extremity Extremity Narrative: There is generalized edema noted over both lower legs Skin Patient has several pressure injury areas to her ischial areas bilaterally and 1 large 1 over her sacrum which is stage IV. There does not appear to be any purulent drainage from the area. Neuro CN's II-XII intact bilaterally and no sensory deficits noted Neuro Narrative: Patient has paraplegia Sensorium / Orientation: awake, alert, oriented to person and oriented to place Speech: speech normal Psych affect normal Patient appears stable for discharge on 01/13/2024-this examiner feels there is a high probability the patient may return to the hospital for further care even though she is hospice classified at home. Weight / BMI Weight Weight: 86.4 kg Body Mass Index (BMI) 38.5 ABG / Lab / Microbiology Data 01/12/24 06:05 01/14/24 06:59 Laboratory: Laboratory Results - last 24 hr 01/12/24 16:30: POC Glucose 138 H 01/13/24 06:04: Random Vancomycin 18.0 H 01/13/24 06:38: POC Glucose 160 H Microbiology: Microbiology 01/07/24 23:45 Wound - Buttock Gram Stain - Final 01/07/24 23:45 Wound - Buttock Wound Culture - Final Pseudomonas putida Providencia rettgeri Proteus mirabilis Morganella morganii sp morgani Enterococcus faecalis 01/07/24 14:35 Blood Culture (Wb) - Right Forearm Blood Culture - Final No growth in 5 days. 01/09/24 07:07 Sputum, Induced/Lukens Gram Stain - Final 01/09/24 07:07 Sputum, Induced/Lukens Respiratory Culture - Final Meth. resistant Staph. aureus 01/07/24 15:44 Urine, Catheterized Urine Culture - Final Citrobacter freundii Providencia rettgeri Serratia fonticola D/C Instructions Discharge Diet: - (Mechanical soft diet as tolerated) Weight Bearing Status: - (Resume previous activity level) Meaningful Use Info Meaningful Use Meaningful Use Diagnoses (Choose all that apply): None applicable Ischemic Stroke Statin Dosing Therapy Reference: STATIN DOSE THERAPY REFERENCE: * Patients > 75 years receive moderate or high dose statin therapy. * Patients 75 years or YOUNGER should receive HIGH intensity statin dose unless contraindicated. You will be required to document reason for non-treatment if statin daily dose does not meet guidelines. HIGH DOSE STATIN THERAPY DAILY Atorvastatin > than or = to 40 mg Rosuvastatin > than or = to 20 mg Amlodipine + Atorvastatin > than or = to 2.5/40 mg Ezetimibe + Simvastatin 10/80 mg Simvastatin 80mg Discharge Plan Admission Admit Date/Time: 01/07/24 19:42 Primary Reason for Your Visit: Septic shock, urinary tract infection, MRSA pneumonia Attending Provider: Edgar Nice Primary Care Provider: YG BUNCH Consulting Providers: Nicolasa Stokes; Elias Grande; Robbie Vicente; Denisse Johns; Aimee Batista Instructions Additional Instructions / Restrictions: Follow-up with hospice as directed Discharge Orders/Prescriptions Prescriptions: New nystatin [Nyamyc] 100,000 unit/gram Powder 1 applic topical TID Qty: 0 0RF Protocol: *Topical Application Instructions APPLICATION INSTRUCTIONS: apply to abd folds oxycodone 5 mg Tablet 5 mg PO Q4H PRN PRN (Reason: Pain Score 4-10) 2 Days Qty: 15 0RF menthol-zinc oxide [Calmoseptine] 0.44-20.6 % Ointment 1 applic topical TID Qty: 0 0RF Protocol: *Topical Application Instructions APPLICATION INSTRUCTIONS: Apply to affected areas Milad (with collagen) 7-7-1.5 gram Powder In Packet 1 packet PO BIDCM Qty: 0 0RF HySept 0.25 % Solution See Protocol topical DAILY Qty: 0 0RF Protocol: *Topical Application Instructions APPLICATION INSTRUCTIONS: to sacral and bilateral ischial wounds linezolid [Zyvox] 600 mg tablet 600 mg PO BID Qty: 10 0RF cefdinir 300 mg capsule 300 mg PO DAILY Qty: 5 0RF Continued levothyroxine [Synthroid] 50 mcg tablet 50 mcg PO DAILY buspirone 5 mg tablet 5 mg PO BID Qty: 60 5RF baclofen 10 mg tablet 10 mg PO BID Rx Instructions: Take one tab BID PO for MS muscle spasms ferrous sulfate [FeroSul] 325 mg (65 mg iron) tablet 325 mg PO DAILY sennosides [Senna Lax] 8.6 mg tablet 8.6 mg PO DAILY PRN Rx Instructions: BID as needed for constipation acetaminophen [Tylenol Arthritis Pain] 650 mg tablet extended release 650 mg PO Q12H atorvastatin 80 mg tablet 80 mg PO DAILY Patient Comments: TAKE 1 TABLET BY MOUTH DAILY esomeprazole magnesium 40 mg capsule,delayed release(DR/EC) 40 mg PO DAILY Patient Comments: TAKE 1 CAPSULE EVERY DAY ondansetron 4 mg tablet,disintegrating 4 mg PO Q4H PRN PRN (Reason: Nausea) Qty: 10 0RF baclofen 10 mg tablet 10 mg PO DAILY PRN (Reason: Muscle Spasm) Rx Instructions: Take 1 tab PRN 1 time daily as needed for muscle spasms PRN duloxetine 60 mg capsule,delayed release(DR/EC) 60 mg PO BID Qty: 180 0RF Changed glimepiride 4 mg tablet 2 mg PO BID Qty: 1 0RF Discontinued lorazepam [Ativan] 0.5 mg tablet 0.5 mg PO DAILY PRN Rx Instructions: Take every 4 hours as needed for Anxiety/restlessness furosemide 40 mg tablet 80 mg PO BREAKFAST Patient Comments: TAKE 2 TABLETS EVERY MORNING oxycodone-acetaminophen 5-325 mg tablet 1 tab PO TID PRN (Reason: MS ) Patient Comments: Take one (1) tablet by mouth three times a day, as needed for multiple sclerosis contractures PALLIATIVE PATIENT metformin 1,000 mg tablet 1,000 mg PO BID Patient Comments: TAKE 1 TABLET TWICE DAILY Ozempic 1 mg/dose (4 mg/3 mL) pen injector 1 mg SUBCUT QWEEK Patient Comments: INJECT 1mg under the skin EVERY week FOR 90 DAYS midodrine 10 mg tablet 10 mg PO BID levofloxacin 250 mg Tablet 250 mg PO DAILY@0600 Qty: 5 0RF insulin degludec [Tresiba FlexTouch U-200] 200 unit/mL (3 mL) insulin pen 20 unit SUBCUT QHS Qty: 9 0RF Patient Comments: Inject 50 units sub-q every night at bedtime. Ocrevus 30 mg/mL solution See Rx Instructions .ROUTE .COMPLEX Qty: 10 1RF Rx Instructions: 300mg (10ml) IV over 4 hours every 2 weeks x 2 doses. No Action lorazepam 1 mg tablet 1 mg PO Q4H PRN PRN (Reason: anxiety) Referrals / Follow Up: YG BUNCH [employer] [facility]-C [Primary Care Provider] - Disposition Disposition (needs filled in before D/C Order can be placed): Home, Self Care Charges/Coding Visit Charges Inpatient E&M: 47236 Disch Hosp >30min
[2024-01-13 11:58] LABS: Bedside Glucose 160 mg/dL (74-106)
--- NOTE | 2024-01-13 12:15 | CASEMGMT ---
JANELL had not heard from Kayley with [facility] so JANELL called [facility] and changed transportation to . JANELL called Allison and let her know. JANELL then called [facility] back and spoke with Jolene letting her know that because SW did not hear from Kayley yet SW changed transport to . JANELL then received a call from Kayley with [facility]. Kayley said they are not going to take patient back on Hospice as the physician feels patient is not Hospice appropriate. JANELL called Allison and let her know this information. Allison was going to talk to patient's and let him know this information. JANELL told Allison that a new Hospice will need to be chosen. JANELL updated RN, patient, and physician. Adriana BURRIS
--- NOTE | 2024-01-13 12:53 | CASEMGMT ---
JANELL called patient's son and POA Steven letting him know this information. JANELL explained that whatever equipment [facility] provided they said they took it out of the home. JANELL said patient may not be able to leave today as a new Hospice will need chosen and equipment will need delivered to the home. Steven said he will talk with his and call JANELL back. JANELL provided Steven with JANELL's direct number. Adriana Callaway [employer] [place]
--- NOTE | 2024-01-13 13:26 | CASEMGMT ---
Discharge Planning Transport with [facility] cancelled. Hanh Johnson DC Planning Asst.
--- NOTE | 2024-01-13 13:35 | CASEMGMT ---
Patient's daughter in law Allison showed up to [facility]. JANELL and Allison went to patient's room and discussed that a new hospice will need to be chosen. JANELL had a list of hospices that service [facility]. Patient did not care. Per Allison patient's Jm would prefer they not go with [facility] unless no one else will take her. Allison asked that JANELL contact the hospice agencies that are closest to [place]. According to the list JANELL has there are two in [place] and one in [place]. Allison said to start with those and then go to the next closest facilities. JANELL called [facility]. They are now [facility] and they no longer come to [facility]. JANELL called [facility]. They are now part of [facility]. JANELL spoke with Irish and she was going to check and see if they service [facility]. JANELL called [facility] in [place] and left a message requesting a call. Adriana BURRIS
[2024-01-13 14:33] VITALS: BP 97/63; PULSE 67; RESP 16; TEMP 36.5; O2SAT 97
--- NOTE | 2024-01-13 15:03 | CASEMGMT ---
JANELL received a return call from Fredis with [facility]. Fredis asked SW to send him the referral via email. JANELL then received a call back from Irish with [facility] and they will review the referral. Irish asked JANELL to fax the referral. JANELL sent referrals to both agencies. JANELL called Allison and let her know she may receive a call from [facility]. Allison said that she is going to talk with Steven, but she thinks if [facility] cannot take patient then she would like to go with [facility]. JANELL also called Steven, patient's son and updated him as well and that he may get a phone call from [facility]. JANELL will follow up tomorrow with referrals. JANELL then received a return call from Julia with [facility] (sister [facility] of [facility]). JANELL told Julia that right now family is talking with another agency and JANELL will follow up with her tomorrow regarding referral. Julia's phone number is: [phone]. Adriana BURRIS
[2024-01-13 17:05] LABS: Bedside Glucose 144 mg/dL (74-106)
--- NOTE | 2024-01-13 17:33 | PCM.PN.HOSP ---
Reason for Visit Reason for Visit: Diagnoses Sepsis, unspecified organism (01/07/24) Type 2 diabetes mellitus without complications (01/07/24) Acute metabolic acidosis (01/07/24) Multiple sclerosis (01/07/24) Local infection of the skin and subcutaneous tissue, unspecified (01/07/24) Pressure ulcer of unspecified site, unspecified stage (01/07/24) Acute kidney failure, unspecified (01/07/24) Chronic kidney disease, stage 3a (01/07/24) Calculus of kidney (01/07/24) Neuromuscular dysfunction of bladder, unspecified (01/07/24) Retention of urine, unspecified (01/07/24) Severe sepsis with septic shock (01/07/24) Subjective Subjective Patient was seen and examined today, patient was set to be discharged to home today but instead her hospice service was not able to be renewed because they refused to see the patient, we are now working for a different hospice provider to see the patient home and so she will need to stay here in the hospital until that can be arranged. Objective Data Objective Data Vital Signs: Vital Signs Temp Pulse Resp BP Pulse Ox O2 Del Method FiO2 97.7 F L 67 16 97/63 97 Room Air 21 01/13/24 14:33 01/13/24 14:33 01/13/24 14:33 01/13/24 14:33 01/13/24 14:33 01/13/24 15:01 01/10/24 10:00 Oxygen Delivery Method Room Air Weight: 86.4 kg Body Mass Index (BMI) 38.5 Intake & Output: Intake and Output for Last 24 Hours 01/11/24 01/12/24 01/13/24 23:59 23:59 23:59 Intake Total 475.38 / 475.38 520 / 520 1010 / 1010 Output Total 850 / 1100 575 / 575 750 / 750 Balance -374.62 / -624.62 -55 / -55 260 / 260 Lab / Micro Data 01/12/24 06:05 01/12/24 06:05 Labs: Laboratory Results - last 24 hr 01/13/24 06:04: Random Vancomycin 18.0 H 01/13/24 06:38: POC Glucose 160 H 01/13/24 11:37: POC Glucose 160 H 01/13/24 16:44: POC Glucose 144 H Micro: Microbiology 01/07/24 23:45 Wound - Buttock Gram Stain - Final 01/07/24 23:45 Wound - Buttock Wound Culture - Final Pseudomonas putida Providencia rettgeri Proteus mirabilis Morganella morganii sp morgani Enterococcus faecalis 01/07/24 14:35 Blood Culture (Wb) - Right Forearm Blood Culture - Final No growth in 5 days. 01/09/24 07:07 Sputum, Induced/Lukens Gram Stain - Final 01/09/24 07:07 Sputum, Induced/Lukens Respiratory Culture - Final Meth. resistant Staph. aureus 01/07/24 15:44 Urine, Catheterized Urine Culture - Final Citrobacter freundii Providencia rettgeri Serratia fonticola Physical Exam Narrative alert and no apparent distress General Appearance: cooperative, well kempt and well developed Orientation / Consciousness: awake, oriented to person and oriented to place HEENT normocephalic, head/scalp atraumatic and moist oral mucous membranes Eyes PERRL, EOMs intact bilaterally and conjunctivae normal Neck supple, no JVD and thyroid normal General: trachea midline Resp normal respiratory effort, no retractions, no use of accessory muscles and clear to auscultation bilaterally Auscultation: Negative for rales, rhonchi or wheezes Cardio regular rate, regular rhythm, S1 normal heart sound, S2 normal heart sound, no murmurs, no rub and no gallops GI normal to inspection, nondistended, normoactive bowel sounds, soft to palpation, non-tender and non-distended Extremity Extremity Narrative: There is generalized edema noted over both lower legs Skin Patient has several pressure injury areas to her ischial areas bilaterally and 1 large 1 over her sacrum which is stage IV. There does not appear to be any purulent drainage from the area. Neuro CN's II-XII intact bilaterally and no sensory deficits noted Neuro Narrative: Patient has paraplegia Sensorium / Orientation: awake, alert, oriented to person and oriented to place Speech: speech normal Psych affect normal Assessment & Plan Assessment/Plan (1) Septic shock: (2) EDWINA (acute kidney injury): (3) Chronic kidney disease, stage 3a: (4) Acute metabolic acidosis: (5) Kidney stones: PLAN: Plan 1. Septic shock-patient currently has Staph aureus growing from her sputum and 3 different bacteria growing in her urine, continue present antibiotic coverage, infectious diseases participating in her care. Patient will be changed to Zyvox 600 mg twice daily and cefdinir 300 mg daily.. #2 acute cystitis-patient has 3 different bacteria growing from her urine, these bacteria are low numbers however, patient will continue present antibiotics for now, she will be placed on oral antibiotics #3 acute hypoxic respiratory ghdbhca-fbchcuap-binrsnn is currently on room air #4 MS-complicates care, management, recovery, and prognosis #5 type 2 diabetes-patient's blood sugars will be monitored, sliding scale insulin will be administered as needed #6 chronic pain-patient is currently on IV fentanyl as needed I will advance patient's diet to mechanical soft. Total clinical time spent by myself addressing the patient's medical issues, reviewing all of her data, and collaborating with patient's care team: 35 minutes Charges/Coding Visit Charges Inpatient E&M: 80737 Subs Hosp L2
--- NOTE | 2024-01-13 18:26 | NURSING ---
Educated family that patient is still on clear liquid diet and cannot have bhutanese food. Family stated understanding.
--- NOTE | 2024-01-13 18:46 | PCM.PN.REN ---
Subjective Subjective Following for EDWINA and CKD. The patient denies chest pain, shortness of breath, or nausea. Appetite is better. Objective Data Objective Data Vital Signs: Vital Signs Temp Pulse Resp BP Pulse Ox O2 Del Method FiO2 97.7 F L 67 16 97/63 97 Room Air 21 01/13/24 14:33 01/13/24 14:33 01/13/24 14:33 01/13/24 14:33 01/13/24 14:33 01/13/24 15:01 01/10/24 10:00 Oxygen Delivery Method Room Air Weight: 86.4 kg Body Mass Index (BMI) 38.5 Intake & Output: Intake and Output for Last 24 Hours 01/11/24 01/12/24 01/13/24 23:59 23:59 23:59 Intake Total 475.38 / 475.38 520 / 520 1310 / 1310 Output Total 850 / 1100 575 / 575 950 / 950 Balance -374.62 / -624.62 -55 / -55 360 / 360 Lab / Micro Data 01/12/24 06:05 01/12/24 06:05 Labs: Laboratory Results - last 24 hr 01/13/24 06:04: Random Vancomycin 18.0 H 01/13/24 06:38: POC Glucose 160 H 01/13/24 11:37: POC Glucose 160 H 01/13/24 16:44: POC Glucose 144 H Micro: Microbiology 01/07/24 23:45 Wound - Buttock Gram Stain - Final 01/07/24 23:45 Wound - Buttock Wound Culture - Final Pseudomonas putida Providencia rettgeri Proteus mirabilis Morganella morganii sp morgani Enterococcus faecalis 01/07/24 14:35 Blood Culture (Wb) - Right Forearm Blood Culture - Final No growth in 5 days. 01/09/24 07:07 Sputum, Induced/Lukens Gram Stain - Final 01/09/24 07:07 Sputum, Induced/Lukens Respiratory Culture - Final Meth. resistant Staph. aureus 01/07/24 15:44 Urine, Catheterized Urine Culture - Final Citrobacter freundii Providencia rettgeri Serratia fonticola Physical Exam Narrative General: Ill-appearing, sedated on ventilator. HEENT: Normocephalic, atraumatic. Neck: Supple, no JVD. Heart: Normal S1, S2. No rubs, murmurs or gallops. Lungs: Clear to auscultation anteriorly. Abdomen: Normal bowel sounds, soft, nontender, no guarding or rebound. Extremities: There is 1+ edema of the lower extremity bilaterally. Assessment & Plan Assessment/Plan (1) EDWINA (acute kidney injury): (2) Chronic kidney disease, stage 3a: (3) Acute metabolic acidosis: (4) Kidney stones: PLAN: Plan Impression/Plan: The patient is a 63-year-old female with past history of multiple sclerosis complicated by urinary retention requiring chronic Valenzuela catheter, hypothyroidism, GERD, generalized anxiety disorder, and major depressive disorder. The patient presented to hospital on 01/07/2024 with altered mental status. She was also found to be hypotensive with systolic blood pressure less than 100 mmHg. The patient is being treated for septic shock due to either UTI and/or infected decubitus ulcers. Nephrology is following for EDWINA on CKD. Acute kidney injury on chronic kidney disease stage G3a. Last available serum creatinine from August 2022 was 1.22 mg/dL. Thus far, serum creatinine has peaked at 3.46 mg/dL on 01/07/2024. Serum creatinine is better today at 2.59 mg/dL on 01/13/2024. Urine output appears to be picking up as well. EDWINA is likely due to ischemic ATN from septic shock. The patient has been off of vasopressor. She has been hemodynamically stable in the past 72 hours. Keep MAP above 65 mmHg. She is now off of maintenance IV fluid, so I encouraged her to push oral intake on her own. There is no need for kidney replacement therapy since renal function is improving. Will continue to monitor renal function, volume status, acid-base and electrolytes. Acute metabolic acidosis. Bicarbonate level was 11 mmol/L on 01/09/2024. Serum bicarbonate level improved with improvement in renal function. She did require temporary sodium bicarb infusion. Serum bicarbonate level has stabilized at 17 mmol/L today on 01/13/2024. Recheck serum bicarbonate level tomorrow. Nephrolithiasis. Patient has bilateral staghorn calcification/nephrolithiasis. She also has bilateral ureteral stents. Unclear when the stents were placed. There is bilateral pelviectasia of both kidneys with mild left hydronephrosis. May benefit from removal/exchange of ureteral stents. I will defer to primary service and ID for decision. Septic shock secondary to complicated UTI versus soft tissue infection. Resolving. Patient is off IV vasopressor. She has been transferred to PCU. Antimicrobial coverage as per primary service and ID.
[2024-01-13 19:00] VITALS: PULSE 78
[2024-01-13 20:23] VITALS: BP 100/61; PULSE 81; RESP 16; TEMP 36.4; O2SAT 100
[2024-01-13] MEDS: Linezolid 600 MG Tablet PO (20:46)
[2024-01-14 02:20] VITALS: BP 109/64; PULSE 76; RESP 18; TEMP 36.6; O2SAT 100
[2024-01-14 03:00] VITALS: PULSE 63
[2024-01-14 05:00] VITALS: BMI 38.1
[2024-01-14] MEDS: Heparin Injection (Vial) 5,000 UNIT/ML VIAL 5000 UNIT SC (06:16)
[2024-01-14] MEDS: Acetaminophen 500 MG Tablet 1000 MG PO ×2 (06:16→13:11)
[2024-01-14] MEDS: Nystatin Powder 15gm Bottle 1 APPLIC TOPICAL ×2 (06:17→13:18)
[2024-01-14] MEDS: oxyCODONE 5 MG Tablet PO ×3 (06:25→19:03)
[2024-01-14 07:03] LABS: Bedside Glucose 148 mg/dL (74-106)
[2024-01-14 07:32] LABS: Albumin, Serum 1.6 g/dL (3.2-5.0); BUN 71 mg/dL (7-18); BUN/Creat Ratio 29.1 RATIO (10-20); Calcium,Total 7.5 mg/dL (8.5-10.1); Chloride 115 mmol/L (98-107); Creatinine, Serum 2.44 mg/dL (0.55-1.02); EST Glomerular Filtration Rate 21 mL/min (>60); Est Glom Filt Rate - Afr Amer 26 mL/min (>60); Estimated Creatinine Clearance 23.52 ml/min; Glucose 158 mg/dL (74-106); Phosphorus 1.6 mg/dL (2.5-4.9); Potassium 3.7 mmol/L (3.5-5.1); Sodium Level 140 mmol/L (136-145)
[2024-01-14 08:54] VITALS: BP 96/69; PULSE 88; RESP 17; TEMP 36.6; O2SAT 99
[2024-01-14] MEDS: Linezolid 600 MG Tablet PO (09:07)
[2024-01-14] MEDS: Cefdinir 300 MG Capsule PO (09:07)
[2024-01-14] MEDS: Pantoprazole Sodium 40 MG in 0.9% Normal Saline (100mL MB+) 100 ML 330 MG IV (09:16)
--- NOTE | 2024-01-14 09:45 | CASEMGMT ---
JANELL received an email from Fredis with [facility] and they have declined patient due to not enough staffing to meet patient's needs. JANELL spoke with Allison, patient's daughter in law and they would like a referral to [facility]. JANELL called [facility] and made a referral. JANELL notified patient and Allison. Adriana Callaway CAN OPERATOR [place]
--- NOTE | 2024-01-14 11:09 | PN.RENAL_ITS ---
Subjective Subjective Following for EDWINA on CKD. The patient denies chest pain, shortness of breath, nausea. Appetite is better. Objective Data Objective Data Vital Signs: Vital Signs Temp Pulse Resp BP Pulse Ox O2 Del Method FiO2 97.8 F 88 17 96/69 99 Room Air 21 01/14/24 08:54 01/14/24 08:54 01/14/24 08:54 01/14/24 08:54 01/14/24 08:54 01/14/24 08:58 01/10/24 10:00 Oxygen Delivery Method Room Air Weight: 85.6 kg Body Mass Index (BMI) 38.1 Intake & Output: Intake and Output for Last 24 Hours 01/12/24 01/13/24 01/14/24 23:59 23:59 23:59 Intake Total 520 / 520 1310 / 1310 470 / 470 Output Total 575 / 575 950 / 1300 650 / 650 Balance -55 / -55 360 / 10 -180 / -180 Lab / Micro Data 01/12/24 06:05 01/14/24 06:59 Labs: Laboratory Results - last 24 hr 01/13/24 11:37: POC Glucose 160 H 01/13/24 16:44: POC Glucose 144 H 01/14/24 06:35: POC Glucose 148 H 01/14/24 06:59: Sodium 140, Potassium 3.7, Chloride 115 H, Carbon Dioxide 17.0 L , BUN 71 H, Creatinine 2.44 H, Estim Creat Clear Calc 23.52, Est GFR (MDRD) Af Amer 26 L, Est GFR (MDRD) Non-Af 21 L, BUN/Creatinine Ratio 29.1 H, Glucose 158 H, Calcium 7.5 L, Phosphorus 1.6 L, Albumin 1.6 L Micro: Microbiology 01/07/24 23:45 Wound - Buttock Gram Stain - Final 01/07/24 23:45 Wound - Buttock Wound Culture - Final Pseudomonas putida Providencia rettgeri Proteus mirabilis Morganella morganii sp morgani Enterococcus faecalis 01/07/24 14:35 Blood Culture (Wb) - Right Forearm Blood Culture - Final No growth in 5 days. 01/09/24 07:07 Sputum, Induced/Lukens Gram Stain - Final 01/09/24 07:07 Sputum, Induced/Lukens Respiratory Culture - Final Meth. resistant Staph. aureus 01/07/24 15:44 Urine, Catheterized Urine Culture - Final Citrobacter freundii Providencia rettgeri Serratia fonticola Physical Exam Narrative General: Ill-appearing, sedated on ventilator. HEENT: Normocephalic, atraumatic. Neck: Supple, no JVD. Heart: Normal S1, S2. No rubs, murmurs or gallops. Lungs: Clear to auscultation anteriorly. Abdomen: Normal bowel sounds, soft, nontender, no guarding or rebound. Extremities: There is 1+ edema of the lower extremity bilaterally. Assessment & Plan Assessment/Plan (1) EDWINA (acute kidney injury): (2) Chronic kidney disease, stage 3a: (3) Acute metabolic acidosis: (4) Kidney stones: PLAN: Plan Impression/Plan: The patient is a 63-year-old female with past history of multiple sclerosis complicated by urinary retention requiring chronic Valenzuela catheter, hypothyroidism, GERD, generalized anxiety disorder, and major depressive disorder. The patient presented to hospital on 01/07/2024 with altered mental status. She was also found to be hypotensive with systolic blood pressure less than 100 mmHg. The patient is being treated for septic shock due to either UTI and/or infected decubitus ulcers. Nephrology is following for EDWINA on CKD. Acute kidney injury on chronic kidney disease stage G3a. Last available serum creatinine from August 2022 was 1.22 mg/dL. Thus far, serum creatinine has peaked at 3.46 mg/dL on 01/07/2024. Serum creatinine is better today at 2.44 mg/dL on 01/14/2024. Urine output appears to be adequate. EDWINA is likely due to ischemic ATN from septic shock. The patient has been off of vasopressor. She has been hemodynamically stable in the past 72 hours. Keep MAP above 65 mmHg. She is now off of maintenance IV fluid, so I encouraged her to push oral intake on her own. There is no need for kidney replacement therapy since renal function is improving. Will continue to monitor renal function, volume status, acid-base and electrolytes. Acute metabolic acidosis. Bicarbonate level was 11 mmol/L on 01/09/2024. Serum bicarbonate level improved with improvement in renal function. She did require temporary sodium bicarb infusion. Serum bicarbonate level has stabilized at 17 mmol/L today on 01/14/2024. Recheck serum bicarbonate level periodically Nephrolithiasis. Patient has bilateral staghorn calcification/nephrolithiasis. She also has bilateral ureteral stents. Unclear when the stents were placed. There is bilateral pelviectasia of both kidneys with mild left hydronephrosis. May benefit from removal/exchange of ureteral stents. I will defer to primary service and ID for decision. Septic shock secondary to complicated UTI versus soft tissue infection. Resolving. Patient is off IV vasopressor. She has been transferred to PCU. Antimicrobial coverage as per primary service and ID.
--- NOTE | 2024-01-14 12:02 | CASEMGMT ---
Hospice is at [facility] to talk with patient and family. Await acceptance by Hospice physician. Adriana Callaway HOME THERAPY TEACHER [place]
[2024-01-14] MEDS: Menthol/Lanolin/Calamine/Znox 113 GM Tube 1 APPLIC TOPICAL (13:02)
[2024-01-14] MEDS: DAKIN'S SOL HALF STRENGTH (=0.25%) TOPICAL (13:03)
--- NOTE | 2024-01-14 13:52 | CASEMGMT ---
[facility] [place] is accepting patient. The rolled glass crosscutter said she will stat order a bed for patient. Once she finds out when it will be delivered she will set up transport and call PCU nurses station with the time. SW notified physician. Plan: d/c home with [facility] [place]. Once bed is delivered Hospice will set up transport. Adriana BURRIS
[2024-01-14 15:00] VITALS: BP 92/56; PULSE 71; RESP 16; TEMP 36.6; O2SAT 98
[2024-01-14 19:00] VITALS: BP 90/57; PULSE 78; RESP 17; TEMP 36.7; O2SAT 100
--- NOTE | 2024-01-18 09:01 | CASEMGMT ---
SW called Adult Protective Services regarding the lack of care patient was getting at home. Adriana Callaway EXP[employer]ION JOINT FINISHER [place]
== END 2024-01-14 20:11 | disposition home or self-care (01) | DRG 698 ==
LOC: ED 16:44 → PCU 19:10 → ICU 19:50 → PCU 01-11 09:40
PROVIDERS: Family Medicine; Internal Medicine; Internal Medicine Nephrology; Admitting Provider Internal Medicine; Emergency Provider Emergency Medicine; PCP Nurse Practitioner Family; Visit Provider Internal Medicine
DX: T83.511A Infection and inflammatory reaction due to indwelling urethral catheter, initial encounter (principal); A41.9 Sepsis, unspecified organism; R65.21 Severe sepsis with septic shock; J96.01 Acute respiratory failure with hypoxia; N17.0 Acute kidney failure with tubular necrosis; G93.41 Metabolic encephalopathy; L89.154 Pressure ulcer of sacral region, stage 4; E87.21 Acute metabolic acidosis; E87.1 Hypo-osmolality and hyponatremia; N13.6 Pyonephrosis; K22.0 Achalasia of cardia; Z51.5 Encounter for palliative care; E11.22 Type 2 diabetes mellitus with diabetic chronic kidney disease; N18.31 Chronic kidney disease, stage 3a; F32.A Depression, unspecified; E03.9 Hypothyroidism, unspecified; D63.1 Anemia in chronic kidney disease; E66.9 Obesity, unspecified; G35 Multiple sclerosis; E11.622 Type 2 diabetes mellitus with other skin ulcer; E11.42 Type 2 diabetes mellitus with diabetic polyneuropathy; E78.5 Hyperlipidemia, unspecified; K21.9 Gastro-esophageal reflux disease without esophagitis; L89.329 Pressure ulcer of left buttock, unspecified stage; L89.149 Pressure ulcer of left lower back, unspecified stage; L89.319 Pressure ulcer of right buttock, unspecified stage; L89.139 Pressure ulcer of right lower back, unspecified stage; L89.219 Pressure ulcer of right hip, unspecified stage; L89.229 Pressure ulcer of left hip, unspecified stage; Z79.4 Long term (current) use of insulin; E87.8 Other disorders of electrolyte and fluid balance, not elsewhere classified; N39.0 Urinary tract infection, site not specified; B96.5 Pseudomonas (aeruginosa) (mallei) (pseudomallei) as the cause of diseases classified elsewhere; Z79.890 Hormone replacement therapy; Z74.01 Bed confinement status; R33.8 Other retention of urine; Z79.891 Long term (current) use of opiate analgesic; Z79.2 Long term (current) use of antibiotics; Z79.84 Long term (current) use of oral hypoglycemic drugs; F41.1 Generalized anxiety disorder; N31.9 Neuromuscular dysfunction of bladder, unspecified; B95.62 Methicillin resistant Staphylococcus aureus infection as the cause of diseases classified elsewhere; Z88.1 Allergy status to other antibiotic agents; Z88.5 Allergy status to narcotic agent; Z88.2 Allergy status to sulfonamides; Y73.2 Prosthetic and other implants, materials and accessory gastroenterology and urology devices associated with adverse incidents; Z79.02 Long term (current) use of antithrombotics/antiplatelets; Z79.85 Long-term (current) use of injectable non-insulin antidiabetic drugs; G89.29 Other chronic pain
CPT/HCPCS: 31500; 31720; 36415; 36600; 51702; 70450; 71045; 74176; 74230; 80048; 80053; 80069; 80076; 80202; 81001; 82550; 82803; 82962; 83605; 83690; 84443; 84484; 85025; 85027; 85610; 87040; 87070; 87077; 87086; 87088; 87184; 87186; 87205; 92526; 92610; 92611; 93005; 94002; 94003; 94660; 97162; 97165; 97802; 97803; 99252; 99285; P9047; A4216; C1751; G0463; J2310; J2405